=== PATIENT | male | born 1940 | race Caucasian/White ===

== ENCOUNTER → 2017-12-25 10:14 | Outpatient (CLI) | payer MEDICARE, OTHER, SELFPAY ==
[2017-12-25 14:57] LABS: Protein, Urine (Random) 51.9 mg/dL (<11.9); Protein:Creat Ratio 451 mg/g CRE (0-200)
[2017-12-25 14:59] LABS: Albumin, Serum 3.6 g/dL (3.2-5.0); BUN 17 mg/dL (7-18); BUN/Creat Ratio 13.5 RATIO (10-20); Calcium,Total 9.3 mg/dL (8.5-10.1); Chloride 105 mmol/L (98-107); Creatinine, Serum 1.26 mg/dL (0.70-1.30); EST Glomerular Filtration Rate 59 mL/min (>60); Est Glom Filt Rate - Afr Amer 71 mL/min (>60); Glucose 115 mg/dL (74-106); Magnesium 1.9 mg/dL (1.6-2.6); Phosphorus 3.7 mg/dL (2.5-4.9); Potassium 4.4 mmol/L (3.5-5.1); Sodium Level 139 mmol/L (136-145)
== END ==
PROVIDERS: Family Provider Family Medicine; PCP Family Medicine; Visit Provider Internal Medicine Nephrology
DX: E11.22 Type 2 diabetes mellitus with diabetic chronic kidney disease (principal); N18.2 Chronic kidney disease, stage 2 (mild); E83.42 Hypomagnesemia
CPT/HCPCS: 36415; 80069; 82570; 83735; 84156

== ENCOUNTER 2018-06-28 20:59 | Inpatient (IN) | payer MEDICARE, OTHER, SELFPAY ==
[2018-06-28 21:00] VITALS: BP 127/56; PULSE 95; RESP 18; TEMP 37.3; O2SAT 97; BMI 32.5
--- NOTE | 2018-06-28 21:05 | EKG12_ITS ---
Test Reason : DIZZY Blood Pressure : / mmHG Vent. Rate : 091 BPM Atrial Rate : 091 BPM P-R Int : 182 ms QRS Dur : 078 ms QT Int : 352 ms P-R-T Axes : 000 042 -60 degrees QTc Int : 432 ms Normal sinus rhythm Possible Inferior infarct , age undetermined ST & T wave abnormality, consider lateral ischemia Abnormal ECG Confirmed by HUBERT MIDDLETON, JAMA ([id number]), editor managing newspaper KENDALL VICK ([id number]) on 06/30/2018 11:18:57 AM Referred By: FELA Confirmed By:JAMA GASPAR MD
[2018-06-28 21:56] VITALS: BP 114/65; BP 142/67; BP 95/59; PULSE 101; PULSE 89; PULSE 98
--- NOTE | 2018-06-28 22:17 | RAD_ITS ---
STUDY: X-RAY CHEST REASON FOR EXAM: Male, 77 years old. Dizziness and cough TECHNIQUE: Frontal and lateral views of the chest. COMPARISON: None. FINDINGS: Elevated right hemidiaphragm. Prominent calcified plaque on both hemidiaphragms. Probable chronic pulmonary disease. Wedge-shaped density overlying the right upper lobe, approximately 4.7 cm greatest dimension is most likely calcified plaque but since there are no prior studies, confirmation with CT of the chest is recommended. No definite focal infiltrates. No gross effusions. Previous CABG. Normal heart size. Degenerative changes throughout the spine and shoulders. RAD/Chest PA and Lateral IMPRESSION: Elevated right hemidiaphragm. Prominent calcified plaques of both hemidiaphragms. Probable calcified plaque causing a density in the right upper lobe with CT of the chest is recommended. Electronically Signed: Sherman Strong MD at 23:38 EDT , Service support ,
--- NOTE | 2018-06-28 22:18 | RAD_ITS ---
STUDY: X-RAY - RIGHT FOOT CLINICAL: Male, 77 years old. Diabetic sores plantar redness TECHNIQUE: 3 view(s) of the foot. COMPARISON: None. FINDINGS: There is an enthesophyte involving the posterior superior calcaneus at the site of insertion of the Achilles tendon. A small linear calcification is seen in the plantar fascia consistent with previous tear. Normal visualized subtalar, talonavicular, calcaneocuboid, tarsal and tarsometatarsal articulations. Normal metatarsi. There is degenerative arthrosis of the metatarsophalangeal joint of the hallux . Normal tibial and fibular sesamoid bones. Normal interphalangeal joint of the great toe. Normal phalanges of the great toe. Normal second through fifth metatarsophalangeal joints. Normal interphalangeal joints and phalanges of the lesser toes. The soft tissue structures are unremarkable. There is no demonstrated fracture. RAD/Foot min 3 Views IMPRESSION: No acute fracture, dislocation, or definite destructive process of the bones. Electronically Signed: Sherman Strong MD at 23:36 EDT , Service support ,
--- NOTE | 2018-06-28 22:21 | ED.VISSUMM ---
- ER Visit Summary Date of Service: 06/28/18 Chief Complaint: Right foot redness History of Present Illness: The patient is a 77 M who presents with right foot redness and pain. It is difficult to get a clear history as he is a poor informant. He believes this may be related to medication changes. He was recently taken off of Invokana and started on a new medication. He complains of twitching and mild pain in his right foot. He also noticed that his blood pressure was low at 90 systolic. He complains of dizziness which is worse with standing. He had multiple falls today. He is noticed redness mild pain and swelling of his right foot. He reports sweats but no documented fever. He also complains of a cough productive of clear white sputum. No abdominal pain nausea vomiting diarrhea or chest pain. Physical Examination: Blood pressure 127/56 but orthostatics positive and on standing blood pressure dropped into the 90s Moist mucous membranes Heart regular rate and rhythm Lungs are clear Abdomen soft nontender There is erythema of the right foot and findings consistent with gangrene there appears to be necrosis between the first and second toes and there is a wound on the plantar side of the right foot proximal to the first MTP is able to wiggle his toes without pain he has decreased sensation to light touch he has a palpable left dorsalis pedis pulse I was unable to palpate dorsalis pedis pulse on the right but he does have biphasic Doppler flow Test Results: EKG shows sinus rhythm at a rate of [address] depression and T wave inversions in leads V3 through V6, I, II and aVF. Labs notable for white blood cell count 14.5, BUN 29, creatinine 1.6 this is slightly increased from prior labs. INR 1.2. Troponin negative. Lactic acid normal. Blood culture sent. Chest x-ray shows calcified plaques and a CT of the chest was recommended. Foot x-ray shows no acute fracture or definite destructive process. Emergency Department Course and Treatment: Patient was treated with IV Zosyn and vancomycin. He will be discussed with hospitalist and admitted. He will likely need podiatry or orthopedic consultation as well. Treatment Plan: [] Disposition: Admit Impression: Gangrene and cellulitis right foot This note was generated with Partnered dictation software. It may contain incorrect words, spelling, and punctuation that were not noted in review of the chart prior to signing ED Disposition - Plan for ED Patient: Referrals: Nawaf Villaseñor MD [Primary Care Provider] -
[2018-06-28] MEDS: 0.9% Normal Saline 1,000 ML 999 ML IV (22:49)
[2018-06-28 22:50] VITALS: PULSE 80; RESP 14; O2SAT 95
[2018-06-28 23:01] LABS: International Normalized Ratio 1.2; Prothrombin Time (Protime)PT. 14.9 SECONDS (11.7-14.9)
[2018-06-28 23:07] LABS: Partial Thromboplast Time 30.3 Seconds (24.1-36.2)
[2018-06-28 23:11] LABS: ALB/GLOB Ratio 0.5 RATIO (0.9-2.4); AST(SGOT) 20 U/L (15-37); Absolute Lymphocyte Count 1.31 X10^3/ul (0.83-4.51); Absolute Neutrophil Count 11.9 X10^3/uL (2.0-7.7); Alanine Aminotransfer ALT/SGPT 22 U/L (16-61); Albumin, Serum 2.9 g/dL (3.2-5.0); Alkaline Phosphatase 131 U/L (45-117); Anion Gap 9 (5-15); BUN 29 mg/dL (7-18); BUN/Creat Ratio 18.1 RATIO (10-20); Basophil# 0.03 X10^3/uL; Basophil% 0.2 % (0-1); Calcium,Total 8.9 mg/dL (8.5-10.1); Chloride 100 mmol/L (98-107); EST Glomerular Filtration Rate 45 mL/min (>60); Eosinophil# 0.05 X10^3/uL; Eosinophils% 0.3 % (0-5); Est Glom Filt Rate - Afr Amer 54 mL/min (>60); Estimated Creatinine Clearance 38.66 ml/min; Globulin 5.3 g/dL (2.2-4.2); Glucose 262 mg/dL (74-106); Hematocrit 39.5 % (40-54); Hemoglobin 13.5 g/dl (13.0-16.5); Lymphocyte # 1.31 X10^3/ul (4.0); Mean Corp Hgb Conc 34.2 g/gl (32-36); Mean Corpuscular Hgb 29.5 pg (27.0-32.0); Mean Corpuscular Volume 86.4 fL (80-94); Mean Platelet Vol. 10.1 fl (6.2-12.0); Monocyte# 1.21 X10^3/uL; Monocyte% 8.3 % (0-10); Neutrophil # 11.87 X10^3/uL (2.7-7.7); Platelet Count 244 K/mm3 (150-450); Potassium 4.4 mmol/L (3.5-5.1); Protein, Total 8.2 g/dL (6.4-8.2); RBC Distribution Width CV 12.5 % (11.6-14.6); RBC Distribution Width SD 39.8 fl (35.1-43.9); Red Blood Count 4.57 M/mm3 (4.6-6.2); Sodium Level 131 mmol/L (136-145); White Blood Count 14.5 K/mm3 (4.4-11.0)
[2018-06-28 23:21] LABS: Differential Indicated SCAN CRITERIA MET; POSITIVE COUNT YES; POSITIVE DIFFERENTIAL NO; POSITIVE MORPHOLOGY NO
[2018-06-28 23:22] LABS: Platelet Estimate ADEQUATE (ADEQ)
[2018-06-28 23:27] LABS: Lactic Acid 1.6 mmol/L (0.4-2.0)
[2018-06-29] VITALS (8 sets, daily range): BP systolic 113–138; BP diastolic 46–67; PULSE 60–79; RESP 13–23; TEMP 36.9–37.2; O2SAT 94–97; BMI 30.2; BMI 30.3
--- NOTE | 2018-06-29 | BON_PTH ---
PATIENT: PAULINA OSORIO LOC: MS3 U#:[id number] AGE/SX: 77/M ROOM: SC310 RE06/29/[address]: Dr. Kevin Webber DO : 1940 BED: 1 DIS: 07/02/2018 SPEC #: [id number] RECD: 06/30/18 10:26 STATUS: TALHA REQ #: [id number] AUGUSTO: 06/29/18 00:[address]: Keenan Oliver DEPT: SURGICAL PATHOLOGY RECD BY: Jesse Reynolds ENTERED: 06/30/18 12:18 SP TYPE: Bone OTHR DR: DO Dr. Claritza Aaron, DPM Dr. Keenan Oliver, MD Dr. Harman Garces Dr., MD Dr. William Lago, MD Tissues: A - Soft tissues, NOS B - Bone of foot, NOS Procedures: PAS Fungus (control) Decalcification bone/plaque Special Stain Group I Surgery Specimen Level III Surgery Specimen Level IV GMS Stain (control) Comments: @ Ordering doctor for DEC edited from to @ by LOLITA at 06/30/18 160 @ Ordering doctor for SUIII edited from to @ by LOLITA at 06/30/18 160 @ Ordering doctor for SUIV edited from to @ by LOLITA at 06/30/18 160 @ Submitting doctor edited from to DR.JWUNNI Rosalba MCHUGH at 06/30/18 1602 HEADER OPERATION: Incision and drainage abscess right foot; debridement PRE-OP DIAGNOSIS: Cellulitis, abscess right forefoot; concern for osteomyelitis right forefoot TISSUE SUBMITTED: A - Right foot debrided tissue, B - Sesamoid bone right foot MICROSCOPIC DIAGNOSIS A. Right foot debrided tissue: Acute inflammation and abscess formation. Special stains for acid fast bacilli and fungi are negative for organisms; matched controls are appropriate. B. Sesamoid bone right foot: Pieces of bone with focal minimal acute osteomyelitis and reactive changes. See comment. SJ:kirk 07/06/18 COMMENT B. Acute inflammatory cells infiltrates are associated with focal mild hemorrhage. Case has been reviewed in consultation with Dr. Stearns who concurs with the above diagnosis. IDC:CE MICROSCOPIC DESCRIPTION Slides are reviewed. GROSS DESCRIPTION A - Received in fixative is one container labeled with the patient's name and designated right foot debrided tissue. The specimen consists of multiple irregular fragments of light garnica soft tissue that in aggregate measure 6 x 5 x 2 cm. A few pieces of skin are also noted. Turbine Engineer tissue is submitted in three cassettes. B - Received in fixative is one container labeled with the patient's name and designated sesamoid bone right foot. The specimen consists of multiple pieces of bone that in aggregate measure 4 x 3 x 1.5 cm. The entire specimen is submitted after decalcification in four cassettes. / SJ:rg 06/30/18 TC:3 CPT: 54369 x 2, 79218 x2, 60094
--- NOTE | 2018-06-29 01:40 | HP.PCM_ITS ---
Problem List (1) Cellulitis of right lower extremity Status: Acute (2) DM type 2, uncontrolled, with renal complications Status: Acute (3) Essential hypertension with goal blood pressure less than 130/80 Status: Chronic Comment: Hx of elevated BG in medical office. Monitors at home daily with findings of normal BP. No change in regimen. (4) Hyperlipidemia associated with type 2 diabetes mellitus Status: Chronic Comment: Managed by Dr. King. New chol agent being used. Chol now 164, LDL 75. Taking monthly injection. History of Present Illness Date of Admission: 06/29/18 Chief Complaint: Right lower extremity cellulitis The patient is a 77 year old M with PMH as below who presents to the hospital with 1 weeks worth of cellulitis in his right lower extremity. He noticed that he had an area of redness that was expanding between his first and second toes on the right. Currently it has expanded to encompass his midfoot and there is some streaking going up his leg on the medial aspect. He thinks it is because he has been changing his diabetic medication, he was on Invokana and then was transitioned to a different medication and he thinks that that is what was doing it. In the ER he was found to have a leukocytosis to 14.5, however he has been afebrile and has not been tachycardic. Creatinine on admission is slightly higher than his baseline of 1.2, and his lactic acid was normal at 1.6. He has had a chest x-ray in the ER which demonstrated calcified plaque on the right upper lobe and CT scan is recommended for follow-up which can be done as an outpatient, of note he did have a right lower lobectomy at the [facility]. Past Medical History Past Medical History (Chronic Problems): Chronic Problems (Last Updated 06/04/17 @ 09:13 by Tabby Flores) Hyperlipidemia associated with type 2 diabetes mellitus (Chronic) Managed by Dr. King. New chol agent being used. Chol now 164, LDL 75. Taking monthly injection. Essential hypertension with goal blood pressure less than 130/80 (Chronic) Hx of elevated BG in medical office. Monitors at home daily with findings of normal BP. No change in regimen. Uncontrolled type 2 diabetes mellitus, with long-term current use of insulin (Chronic) BG readings in range in am. When checked pre lunch BG remain well controlled. However before evening meal BG 200+ range. He is instructed on need to resume his lunch insulin. He currently runs high BG from after lunch until he corrects at bedtime, resulting in 10 hours daily of high BG. I reminded him this is the same conversation we had at last visit. He agrees to take insulin as directed. Follows with Dr. Serna for nephrology. Follows with cardiology as well. A1c now 8.6 Medical History: Medical History (Last Updated 06/04/17 @ 09:13 by Tabby Flores) Bone fracture T14.8XXA Diabetes type 2, controlled E11.9 Dx : 1996 Last exacerbation : DKA : never Hypoglycemic episode : never ER visit : never Hearing problem H91.90 High cholesterol E78.00 High triglycerides E78.1 Pneumonia J18.9 Vascular disease I99.9 HTN (hypertension) I10 Allergies Iodinated Contrast- Oral and IV Dye [CONTRASTS] Allergy (Verified 06/28/18 21:03) Rash amlodipine [From Norvasc] Adverse Reaction (Unknown, Verified 06/28/18 21:03) Unknown atorvastatin [From Lipitor] Adverse Reaction (Unknown, Verified 06/28/18 21:03) Unknown cerivastatin [From Baycol] Adverse Reaction (Unknown, Verified 06/28/18 21:03) Unknown enalapril Adverse Reaction (Unknown, Verified 06/28/18 21:03) Unknown exenatide [From Byetta] Adverse Reaction (Unknown, Verified 06/28/18 21:03) Unknown ezetimibe [From Zetia] Adverse Reaction (Unknown, Verified 06/28/18 21:03) Unknown fenofibrate [From Tricor] Adverse Reaction (Unknown, Verified 06/28/18 21:03) Unknown gemfibrozil Adverse Reaction (Unknown, Verified 06/28/18 21:03) Unknown glipizide [From Glucotrol] Adverse Reaction (Unknown, Verified 06/28/18 21:03) Unknown labetalol Adverse Reaction (Unknown, Verified 06/28/18 21:03) Unknown lovastatin [From Mevacor] Adverse Reaction (Unknown, Verified 06/28/18 21:03) Unknown metformin [From Glucophage] Adverse Reaction (Unknown, Verified 06/28/18 21:03) Unknown niacin [From Niaspan Extended-Release] Adverse Reaction (Unknown, Verified 06/28/18 21:03) Unknown nifedipine [From Adalat] Adverse Reaction (Unknown, Verified 06/28/18 21:03) Unknown quinapril [From Accupril] Adverse Reaction (Unknown, Verified 06/28/18 21:03) Unknown repaglinide [From Prandin] Adverse Reaction (Unknown, Verified 06/28/18 21:03) Unknown rosuvastatin [From Crestor] Adverse Reaction (Unknown, Verified 06/28/18 21:03) Unknown simvastatin [From Zocor] Adverse Reaction (Unknown, Verified 06/28/18 21:03) Unknown glyburide Adverse Reaction (Verified 06/28/18 21:03) Unknown glyburide Adverse Reaction (Unknown, Uncoded 06/28/18 21:03) Unknown nifedipine Adverse Reaction (Unknown, Uncoded 06/28/18 21:03) Unknown Home Medications: Ambulatory Orders Medication Instructions Recorded amiloride 5 mg tablet 5 mg PO BID tab 05/29/17 aspirin 81 mg tablet,delayed PO 05/29/17 release insulin aspart U- 100 100 unit/mL See Rx Instructions SC QDAY 05/29/17 subcutaneous solution insulin glargine (U- 100) 100 35 unit SC BID ml 05/29/17 unit/mL subcutaneous solution losartan 50 mg tablet 50 mg PO QDAY 05/29/17 canagliflozin 100 mg tablet 100 mg PO QAM 06/04/17 coenzyme Q10 100 mg capsule 100 mg PO QDAY 06/04/17 magnesium oxide 500 mg capsule 500 mg PO QDAY cap 06/04/17 multivitamin tablet 1 tab PO QDAY 06/04/17 neuro quell PO 06/04/17 clopidogrel 75 mg tablet 75 mg PO QDAY tab 09/16/17 doxazosin 4 mg tablet 2 mg PO BID tab 09/16/17 krill oil 500 mg capsule 1,000 mg PO cap 09/16/17 metoprolol succinate ER 50 mg 25 mg PO QDAY tab 09/16/17 tablet,extended release 24 hr multivitamin tablet 1 tab PO QDAY 09/16/17 Surgical History: Surgical History (Last Reviewed 06/04/17 @ 08:55 by Tabby Flores) H/O heart surgery Z98.890 History of lung surgery Z98.890 Smoking Status: Never smoker Tobacco Use: Cigarettes Alcohol: None Drugs: None - *Family History Maternal History Items: Heart Disease, Stroke Paternal History Items: Heart Disease, Hypertension Review of Systems Constitutional: Denies: Chills, Fever, Weight Change HEENT: Denies: Head Aches, Sinus Congestion, Sinus Drainage Cardiovascular: Denies: Chest Pain, Palpitations Respiratory: Denies: Cough, Shortness of breath at rest, Sputum production Gastrointestinal: Denies: Abdominal Pain, Nausea, Vomiting Genitourinary: Denies: Dysuria Musculoskeletal: Reports: Foot Pain. Denies: Joint Pain, Joint Tenderness Skin: Reports: Rash. Denies: Wounds Neurological: Denies: Numbness, Tingling, Focal weakness Psychiatric: Denies: Anxiety, Depression Hematologic/ Lymphatic: Denies: Easy Bruising, Easy Bleeding VTE Information - Inpt Only VTE Present on Admission: No Patient Problems: Active and Suspected Problems (Last Updated 06/04/17 @ 09:13 by Tabby Flores) Cellulitis of right lower extremity (Acute) - Physical Exam General: Alert, Oriented x3, Cooperative, No apparent distress HEENT: Atraumatic, PERRLA, EOMI, Normocephalic Oral: Dry Mucosa Neck: Supple, No JVD, Trachea Midline Lungs: Clear to auscultation, Normal air movement, No rhonchi, No wheeze, No rales, Diminished - Right base greater than left Cardiovascular: Regular rate, Regular Rhythm, Normal S1, Normal S2, No murmurs Abdomen: Soft, Non Tender, Non-Distended, No Hepato-splenomegaly Extremities: No edema, Capillary Refill Less than 3 Seconds, Tenderness, - - Dark purple area between his first and second toe on the anterior aspect of his foot, with surrounding erythema and there is slight streaking up the medial aspect of his leg Skin: No rashes, No breakdown Neurological: Neuro grossly intact, Sensory exam intact to light touch and pain Psych/Mental Status: Normal Affect, Appropriate Vital Signs Temp Pulse Resp BP Pulse Ox 98.9 F 66 17 130/50 H 96 06/29/18 00:31 06/29/18 01:04 06/29/18 01:04 06/29/18 01:04 06/29/18 01:04 Oxygen Delivery Method Room Air Weight: 220 lb Body Mass Index (BMI) 32.5 Laboratory Tests Past 24 Hrs 06/28/18 06/28/18 06/28/18 21:25 21:25 21:25 WBC 14.5 H RBC 4.57 L Hgb 13.5 Hct 39.5 L MCV 86.4 MCH 29.5 MCHC 34.2 RDW 12.5 RDW Differential 39.8 Plt Count 244 MPV 10.1 Immature Gran % (Auto) 0.200 Neut % (Auto) 82.0 H Lymph % (Auto) 9.0 L C[place] % (Auto) 8.3 Eos % (Auto) 0.3 Baso % (Auto) 0.2 Absolute Neuts (auto) 11.9 H Absolute Lymphs (auto) 1.31 Total Counted Not Reportable Platelet Estimate ADEQUATE PT 14.9 INR 1.2 APTT 30.3 Sodium 131 L Potassium 4.4 Chloride 100 Carbon Dioxide 22.0 Anion Gap 9 BUN 29 H Creatinine 1.60 H Estim Creat Clear Calc 38.66 Est GFR (MDRD) Af Amer 54 L Est GFR (MDRD) Non-Af 45 L BUN/Creatinine Ratio 18.1 Glucose 262 H Lactic Acid Calcium 8.9 Total Bilirubin 1.00 AST 20 ALT 22 Alkaline Phosphatase 131 H Troponin I < 0.015 Total Protein 8.2 Albumin 2.9 L Globulin 5.3 H Albumin/Globulin Ratio 0.5 L 06/28/18 22:00 WBC RBC Hgb Hct MCV MCH MCHC RDW RDW Differential Plt Count MPV Immature Gran % (Auto) Neut % (Auto) Lymph % (Auto) [place] % (Auto) Eos % (Auto) Baso % (Auto) Absolute Neuts (auto) Absolute Lymphs (auto) Total Counted Platelet Estimate PT INR APTT Sodium Potassium Chloride Carbon Dioxide Anion Gap BUN Creatinine Estim Creat Clear Calc Est GFR (MDRD) Af Amer Est GFR (MDRD) Non-Af BUN/Creatinine Ratio Glucose Lactic Acid 1.6 Calcium Total Bilirubin AST ALT Alkaline Phosphatase Troponin I Total Protein Albumin Globulin Albumin/Globulin Ratio Assessment/Plan All Active Problems (Last Updated 06/04/17 @ 09:13 by Tabby Flores) Cellulitis of right lower extremity (Acute) DM type 2, uncontrolled, with renal complications (Acute) 1. RLE cellulitis/JAMI -Unsure of the etiology as he denies any trauma to the leg this is not secondary to Invokana -Received a dose of Zosyn and vancomycin in the ER which we will continue -X-ray of the foot is negative for any involvement in the bone -Leukocytosis to 14.5 however lactic acid is 1.6 -We will continue with IV fluids at 100 cc/h, received bolus in the ER -Creatinine increased to 1.6 from 1.25 in 2018 2. CAD status post bypass and stent/HTN/HLD -Blood pressure has been stable when he has been laying down however in the ER he was getting a little hypotensive when standing up -We will hold his blood pressure medications today -Continue with aspirin and Plavix 3. IDDM 2 -He is on glargine at home 35 units twice daily which we will continue with sliding scale insulin -We will check an A1c in the morning DVT: Lovenox
[2018-06-29] MEDS: 0.9% Normal Saline 1,000 ML 100 ML IV ×2 (03:35→13:47)
--- NOTE | 2018-06-29 03:53 | PCM.RX.CS ---
Consult Pharmacy has been consulted to manage selected antiobiotic: Vancomycin Type of Consult: New start Suspected Infection: Skin/Soft tissue Labs: Sodium 131 mmol/L (136-145) L 06/28/18 21:25 Potassium 4.4 mmol/L (3.5-5.1) 06/28/18 21:25 Chloride 100 mmol/L (98-107) 06/28/18 21:25 Carbon Dioxide 22.0 mmol/L (21.0-32.0) 06/28/18 21:25 Anion Gap 9 (5-15) 06/28/18 21:25 BUN 29 mg/dL (7-18) H 06/28/18 21:25 Creatinine 1.60 mg/dL (0.70-1.30) H 06/28/18 21:25 Est GFR (MDRD) Af Amer 54 mL/min (>60) L 06/28/18 21:25 Est GFR (MDRD) Non-Af 45 mL/min (>60) L 06/28/18 21:25 BUN/Creatinine Ratio 18.1 RATIO (10-20) 06/28/18 21:25 Glucose 262 mg/dL (74-106) H 06/28/18 21:25 Weight used for dosin.87 kg Estimated Creatinine Clearance: 38.64 Goal Trough: 15-20 mcg/mL Pharmacy Plan for Drug Dosing: Pharmacy Service will continue to monitor and adjust dosing as required. Medications Vancomycin HCl 1,500 mg/ (Sodium Chloride) 530 mls @ 250 mls/hr IV Q24H MARILU Follow-Up Labs: Trough Vancomycin Labs to be done on [date and time ordered]: 07/01 @ 0035
[2018-06-29 06:01] LABS: Absolute Lymphocyte Count 1.73 X10^3/ul (0.83-4.51); Absolute Neutrophil Count 11.7 X10^3/uL (2.0-7.7); Basophil# 0.03 X10^3/uL; Basophil% 0.2 % (0-1); Eosinophil# 0.01 X10^3/uL; Eosinophils% 0.1 % (0-5); Lymphocyte # 1.73 X10^3/ul (4.0); Lymphocyte % 11.5 % (19-41); Mean Corp Hgb Conc 33.3 g/gl (32-36); Mean Corpuscular Hgb 28.9 pg (27.0-32.0); Mean Corpuscular Volume 86.7 fL (80-94); Mean Platelet Vol. 9.2 fl (6.2-12.0); Monocyte# 1.46 X10^3/uL; Monocyte% 9.7 % (0-10); Neutrophil # 11.72 X10^3/uL (2.7-7.7); Neutrophil % 78.3 % (47-70); Platelet Count 234 K/mm3 (150-450); RBC Distribution Width CV 12.6 % (11.6-14.6); RBC Distribution Width SD 38.7 fl (35.1-43.9); Red Blood Count 4.15 M/mm3 (4.6-6.2)
[2018-06-29 06:21] LABS: POSITIVE COUNT NO; POSITIVE DIFFERENTIAL NO; POSITIVE MORPHOLOGY NO
[2018-06-29 06:22] LABS: Anion Gap 7 (5-15); BUN 30 mg/dL (7-18); BUN/Creat Ratio 19.1 RATIO (10-20); Calcium,Total 8.4 mg/dL (8.5-10.1); Chloride 105 mmol/L (98-107); Creatinine, Serum 1.57 mg/dL (0.70-1.30); EST Glomerular Filtration Rate 46 mL/min (>60); Est Glom Filt Rate - Afr Amer 55 mL/min (>60); Estimated Creatinine Clearance 41.97 ml/min; Glucose 240 mg/dL (74-106); Potassium 4.6 mmol/L (3.5-5.1); Sodium Level 136 mmol/L (136-145)
[2018-06-29 06:46] LABS: Bedside Glucose 222 mg/dL (70-110)
[2018-06-29] MEDS: Insulin Lispro 100 UNIT/ML INSULN.PEN SQ ×4 (06:46→21:42)
[2018-06-29] MEDS: 0.9% NaCl IVPB Med Flush (250 mL) 15 ML IV (06:50)
[2018-06-29] MEDS: Glucerna Shake 120 ML LIQUID PO ×4 (08:45→21:40)
[2018-06-29] MEDS: Enoxaparin 40 MG/0.4 ML Syringe SC (09:04)
--- NOTE | 2018-06-29 09:46 | CASEMGMT ---
Social Work Note Per waist fitter questions pt has completed Living Will and HCPOA, hasn't provided copies to [facility] and isn't able to bring in copies. Marianne Paez ABORIGINAL EDUCATION WORKER COORDINATOR, DIVISION SERVICE MANAGER
--- NOTE | 2018-06-29 10:05 | CASEMGMT ---
RN CM Face to Face with patient for initial transition planning/care coordination assessment. RN CM introduced self and role at [facility]. Patient lying in bed, alert and oriented. Patient willing to participate in assessment and is able to answer all questions appropriately. Care providers, pharmacy, and demographics verified. Patient wishes to discharge home, denies need for home health at this time. Patient states he has no further needs or concerns at this time. CM to follow for discharge planning needs that may arise. PCP: Charleen Specialists: Marilynn senior treasury consultant; Lizz machinist class b Preferred Pharmacy: [facility] Insurance: QBE Prescription Benefit: yes Living Will/HPOA: yes, Kassandra Ba LNOK: , daughter Living Arrangements: Patient lives in 1 story home. Patient is independent at home. Transportation: self/ DME/HHC: Patient states he has a glucometer and BP cuff. Denied further needs Disposition Plan: Patient to discharge home with family support and follow-up plans in place. Marianne OCHOAN, RN, CM
[2018-06-29 11:50] LABS: Bedside Glucose 306 mg/dL (70-110)
--- NOTE | 2018-06-29 16:14 | MRI_ITS ---
STUDY: MRI RIGHT FOREFOOT WITHOUT CONTRAST REASON FOR EXAM: Male, 77 years old. Cellulitis. Open sore between the first and second toes. TECHNIQUE: Standardized fat and water weighted pulse sequences were obtained in all 3 orthogonal planes. COMPARISON: X-ray June 28, 2018 FINDINGS: There is degenerative arthrosis of the metatarsophalangeal joint of the hallux. There is a bipartite tibial sesamoid with moderate edema. Normal interphalangeal joint of the hallux. Normal proximal and distal phalanges of the great toe. There is soft tissue swelling of the first toe. There is focal defect on the plantar aspect consistent with ulcer. There is focal diminished signal regions in the soft tissues consistent with air at the first interspace. Normal medial and lateral heads of the flexor hallucis brevis tendons. Normal flexor and extensor hallucis longus tendons. Normal second through fifth metatarsophalangeal (MTP) joints. Normal interphalangeal joints of the second through fifth toes. Normal proximal, middle and distal phalanges of the second through fifth toes. Normal first through fourth intermetatarsal spaces. Normal flexor and extensor tendons of the second through fifth toes. Normal visualized metatarsi. Normal intrinsic muscles of the forefoot. MRI/Lower Ext/No Jt/w/o IMPRESSION: Soft tissue swelling with focal ulcer and air in the soft tissues. There is bipartite medial sesamoid with edema consistent with sesamoiditis versus osteomyelitis. Arthritic change at the first MTP joint. Electronically Signed: Phan Rooney MD at 20:22 EDT , Service support ,
--- NOTE | 2018-06-29 16:25 | ART_ITS ---
Reason For Study: ulcer Left Segmental Pressures Left posterior tibial artery = 133mmHg. Left dorsalis pedis artery = 150mmHg. Left digit = 102 mmHg. The left dorsalis pedis waveforms are triphasic. The left posterior tibial artery waveforms are triphasic. Right Segmental Pressures Right brachial= 132mmHg. Right posterior tibial artery = 165mmHg. Right dorsalis pedis artery = 164mmHg. The right dorsalis pedis waveforms are triphasic. The right posterior tibial artery waveforms are triphasic. Indices The right ankle brachial index by the posterior tibial artery is 1.25. The right ankle brachial index by the dorsalis pedis is 1.24. The left ankle brachial index by the dorsalis pedis is 1.14. The left ankle brachial index by the posterior tibial artery is 1.01. The left digital-brachial index is .77. Interpretation Summary Triphasic Doppler waveforms are noted at ankle level bilaterally. Pulse-volume recording amplitudes appear satisfactory at low-thigh, calf, ankle, and digital level bilaterally, though not obtained at digital level on the right due to the presence of an ulceration. Resting ankle-brachial indices are normal bilaterally. The right digital-brachial index was not determined due to the presence of an ulceration. The left digital-brachial index is normal. There is no evidence of significant arterial occlusive disease in the lower extremities bilaterally. Ordering Physician: Keenan Oliver Performed By: AMY HANSON Yaneth
--- NOTE | 2018-06-29 16:50 | CON.PCM_ITS ---
Reason for Consult Date of Consultation: 06/29/18 Reason for Consultation: Right foot infection (diabetic) History of Present Illness: The patient is a 77 year old gentleman with multiple medical problems including diabetes and CAD presented to hospital for redness and swelling, dislocation right foot. Per patient's this started about 1 week ago, she wanted to bring him sooner but patient refused, he was finally agreeable to come in yesterday. He has a large callus which he relates he soaked recently for about 1.5 hours at home, then states he cut off callus himself. He attributes this infection due to recent diabetes medication change (per chart review he was on Invokana and then was transitioned to a different medication). He was found to have cellulitis, with blistering to the right forefoot, he has leukocytosis. Patient is afebrile. He has been started on broad spectrum IV antibiotics. Patient has no complaints of fever, chills, nausea or vomiting. He is resting comfortably in bed. He relates to some, but minimal, pain to the foot. Past Medical History Past Medical History (Chronic Problems): Chronic Problems (Last Updated 06/04/17 @ 09:13 by Tabby Flores) Hyperlipidemia associated with type 2 diabetes mellitus (Chronic) Managed by Dr. King. New chol agent being used. Chol now 164, LDL 75. Taking monthly injection. Essential hypertension with goal blood pressure less than 130/80 (Chronic) Hx of elevated BG in medical office. Monitors at home daily with findings of normal BP. No change in regimen. Uncontrolled type 2 diabetes mellitus, with long-term current use of insulin (Chronic) BG readings in range in am. When checked pre lunch BG remain well controlled. However before evening meal BG 200+ range. He is instructed on need to resume his lunch insulin. He currently runs high BG from after lunch until he corrects at bedtime, resulting in 10 hours daily of high BG. I reminded him this is the same conversation we had at last visit. He agrees to take insulin as directed. Follows with Dr. Serna for nephrology. Follows with cardiology as well. A1c now 8.6 Medical History: Medical History (Last Updated 06/04/17 @ 09:13 by Tabby Flores) Bone fracture T14.8XXA Diabetes type 2, controlled E11.9 Dx : 1996 Last exacerbation : DKA : never Hypoglycemic episode : never ER visit : never Hearing problem H91.90 High cholesterol E78.00 High triglycerides E78.1 Pneumonia J18.9 Vascular disease I99.9 HTN (hypertension) I10 Allergies Iodinated Contrast- Oral and IV Dye [CONTRASTS] Allergy (Verified 06/28/18 21:03) Rash amlodipine [From Norvasc] Adverse Reaction (Unknown, Verified 06/28/18 21:03) Unknown atorvastatin [From Lipitor] Adverse Reaction (Unknown, Verified 06/28/18 21:03) Unknown cerivastatin [From Baycol] Adverse Reaction (Unknown, Verified 06/28/18 21:03) Unknown enalapril Adverse Reaction (Unknown, Verified 06/28/18 21:03) Unknown exenatide [From Byetta] Adverse Reaction (Unknown, Verified 06/28/18 21:03) Unknown ezetimibe [From Zetia] Adverse Reaction (Unknown, Verified 06/28/18 21:03) Unknown fenofibrate [From Tricor] Adverse Reaction (Unknown, Verified 06/28/18 21:03) Unknown gemfibrozil Adverse Reaction (Unknown, Verified 06/28/18 21:03) Unknown glipizide [From Glucotrol] Adverse Reaction (Unknown, Verified 06/28/18 21:03) Unknown labetalol Adverse Reaction (Unknown, Verified 06/28/18 21:03) Unknown lovastatin [From Mevacor] Adverse Reaction (Unknown, Verified 06/28/18 21:03) Unknown metformin [From Glucophage] Adverse Reaction (Unknown, Verified 06/28/18 21:03) Unknown niacin [From Niaspan Extended-Release] Adverse Reaction (Unknown, Verified 06/28/18 21:03) Unknown nifedipine [From Adalat] Adverse Reaction (Unknown, Verified 06/28/18 21:03) Unknown quinapril [From Accupril] Adverse Reaction (Unknown, Verified 06/28/18 21:03) Unknown repaglinide [From Prandin] Adverse Reaction (Unknown, Verified 06/28/18 21:03) Unknown rosuvastatin [From Crestor] Adverse Reaction (Unknown, Verified 06/28/18 21:03) Unknown simvastatin [From Zocor] Adverse Reaction (Unknown, Verified 06/28/18 21:03) Unknown glyburide Adverse Reaction (Verified 06/28/18 21:03) Unknown glyburide Adverse Reaction (Unknown, Uncoded 06/28/18 21:03) Unknown nifedipine Adverse Reaction (Unknown, Uncoded 06/28/18 21:03) Unknown Home Medications: Ambulatory Orders Medication Instructions Recorded amiloride 5 mg tablet 5 mg PO BID tab 05/29/17 aspirin 81 mg tablet,delayed 81 mg PO DAILY 05/29/17 release insulin aspart U- 100 100 unit/mL See Rx Instructions SC QDAY 05/29/17 subcutaneous solution insulin glargine (U- 100) 100 30 unit SC BID ml 05/29/17 unit/mL subcutaneous solution losartan 50 mg tablet 50 mg PO QDAY 05/29/17 canagliflozin 100 mg tablet 100 mg PO QAM 06/04/17 coenzyme Q10 100 mg capsule 100 mg PO QDAY 06/04/17 magnesium oxide 500 mg capsule 500 mg PO BID cap 06/04/17 multivitamin tablet 1 tab PO QDAY 06/04/17 clopidogrel 75 mg tablet 75 mg PO QDAY tab 09/16/17 doxazosin 4 mg tablet 2 mg PO BID tab 09/16/17 krill oil 500 mg capsule 1,000 mg PO BID cap 09/16/17 metoprolol succinate ER 50 mg 25 mg PO QDAY tab 09/16/17 tablet,extended release 24 hr Alirocumab [Praluent Pen] 75 mg SQ .[id number] 06/29/18 Surgical History: Surgical History (Last Reviewed 06/04/17 @ 08:55 by Tabby Flores) H/O heart surgery Z98.890 History of lung surgery Z98.890 Smoking Status: Never smoker Tobacco Use: Cigarettes Alcohol: None Drugs: None - *Family History Maternal History Items: Heart Disease, Stroke Paternal History Items: Heart Disease, Hypertension Review of Systems Constitutional: Denies: Chills, Fever Gastrointestinal: Denies: Nausea, Vomiting Musculoskeletal: Reports: Foot Pain. Denies: Back Pain Skin: Reports: Wounds Patient Problems: Active and Suspected Problems (Last Updated 06/04/17 @ 09:13 by Tabby Flores) Cellulitis of right lower extremity (Acute) - Physical Exam General: Alert, Oriented x3, Cooperative, No apparent distress Extremities: Capillary Refill Less than 3 Seconds, No Calf Tenderness, - - Right foot: Large HPK callus sub 1st met head - upon debridement there is underlying deep ulceration probing very close to bone of the sesamoids and 1st met head/base of hallux proximal phalanx, there is drainage c/w infection and maloder, there is fibrotic and soupy tissue present, there is cellulitis to the dorsal forefoot extending to the midfoot, there is hemorrhagic bulla to the dorsal 1st ID space, with tissue necrosis localized to this area, there is no crepitus, no visible abscess present. No other open lesions to the right foot/ankle or leg, nor to the left foot/ankle or leg. Left foot with no evidence of infection. Sensation is diminished significantly c/w diabetic neuropathy, pedal pulses diminished with palpation but biphasic on doppler. CFT < 3 seconds to all toes. There is edema to the right foot c/w infection, no other edema present bilateral. Motor function intact bilateral foot/ankle. There is no POP or pain on ROM to the foot or ankle bilateral. Right foot xrays reviewed from 06/28/18: there is arterial calcification, there is calcific changes to the 1st MTPJ. No gas in the tissues. No fractures or dislocations. Vital Signs Temp Pulse Resp BP Pulse Ox 98.5 F 60 18 133/52 H 96 06/29/18 16:25 06/29/18 16:25 06/29/18 16:25 06/29/18 16:25 06/29/18 16:25 Oxygen Delivery Method Room Air Weight: 99.87 kg Body Mass Index (BMI) 30.2 Intake and Output for Last 24 Hours 06/27/18 06/28/18 06/29/18 23:59 23:59 23:59 Intake Total 1395 / 1395 Output Total 776 / 776 Balance 619 / 619 Laboratory Tests Past 24 Hrs 06/28/18 06/28/18 06/28/18 21:25 21:25 21:25 WBC 14.5 H RBC 4.57 L Hgb 13.5 Hct 39.5 L MCV 86.4 MCH 29.5 MCHC 34.2 RDW 12.5 RDW Differential 39.8 Plt Count 244 MPV 10.1 Immature Gran % (Auto) 0.200 Neut % (Auto) 82.0 H Lymph % (Auto) 9.0 L Hendricks % (Auto) 8.3 Eos % (Auto) 0.3 Baso % (Auto) 0.2 Absolute Neuts (auto) 11.9 H Absolute Lymphs (auto) 1.31 Total Counted Not Reportable Platelet Estimate ADEQUATE PT 14.9 INR 1.2 APTT 30.3 Sodium 131 L Potassium 4.4 Chloride 100 Carbon Dioxide 22.0 Anion Gap 9 BUN 29 H Creatinine 1.60 H Estim Creat Clear Calc 38.66 Est GFR (MDRD) Af Amer 54 L Est GFR (MDRD) Non-Af 45 L BUN/Creatinine Ratio 18.1 Glucose 262 H Lactic Acid Calcium 8.9 Total Bilirubin 1.00 AST 20 ALT 22 Alkaline Phosphatase 131 H Troponin I < 0.015 Total Protein 8.2 Albumin 2.9 L Globulin 5.3 H Albumin/Globulin Ratio 0.5 L 06/28/18 06/29/18 06/29/18 22:00 05:30 05:30 WBC 15.0 H RBC 4.15 L Hgb 12.0 L Hct 36.0 L MCV 86.7 MCH 28.9 MCHC 33.3 RDW 12.6 RDW Differential 38.7 Plt Count 234 MPV 9.2 Immature Gran % (Auto) 0.200 Neut % (Auto) 78.3 H Lymph % (Auto) 11.5 L Hendricks % (Auto) 9.7 Eos % (Auto) 0.1 Baso % (Auto) 0.2 Absolute Neuts (auto) 11.7 H Absolute Lymphs (auto) 1.73 Total Counted Not Reportable Platelet Estimate PT INR APTT Sodium 136 Potassium 4.6 Chloride 105 Carbon Dioxide 24.0 Anion Gap 7 BUN 30 H Creatinine 1.57 H Estim Creat Clear Calc 41.97 Est GFR (MDRD) Af Amer 55 L Est GFR (MDRD) Non-Af 46 L BUN/Creatinine Ratio 19.1 Glucose 240 H Lactic Acid 1.6 Calcium 8.4 L Total Bilirubin AST ALT Alkaline Phosphatase Troponin I Total Protein Albumin Globulin Albumin/Globulin Ratio POC Glucose 06/29/18 06/29/18 11:34 06:42 POC Glucose 306 H 222 H Assessment/Plan All Active Problems (Last Updated 06/04/17 @ 09:13 by Tabby Flores) Cellulitis of right lower extremity (Acute) DM type 2, uncontrolled, with renal complications (Acute) Cellulitis, abscess right forefoot Concern for osteomyelitis right forefoot Diabetes with peripheral neuropathy Peripheral Vascular Disease Reviewed diagnostic data. Selective debridement completed removing HPK and superficial nonviable tissue from the wound site right forefoot. There is concern for osteomyelitis right foot at level of the 1st ray, possibly the 2nd as well. An MRI was ordered for further evaluation. Given the findings discussed with patient incision, drainage, and debridement of right foot - advised patient he is a high risk of limb loss. Plan is to get MRI and we will then proceed with I+D w/ debridement. A culture was obtained of the wound today - sent to microbiology for further evaluation. Continue with IV antibiotic therapy (patient on Vancomycin and Zosyn). Noninvasive lower extremity arterial studies of the lower extremities ordered. Diabetes, and other medical management per hospitalist team. Will continue to follow. Thank you for consultation. Reviewed with patient, he agreed with plan, also with patient's permission reviewed with patient's .
[2018-06-29 17:05] LABS: Bedside Glucose 233 mg/dL (70-110)
--- NOTE | 2018-06-29 17:19 | PCM.PN.HOSP ---
Patient Problems: Active and Suspected Problems (Last Updated 06/04/17 @ 09:13 by Tabby Flores) Cellulitis of right lower extremity (Acute) Subjective: still with erythema on right foot. Vitals/I&O's: Vital Signs Temp Pulse Resp BP Pulse Ox 36.9 C 60 18 133/52 H 96 06/29/18 16:25 06/29/18 16:25 06/29/18 16:25 06/29/18 16:25 06/29/18 16:25 Oxygen Delivery Method Room Air Weight: 99.87 kg Body Mass Index (BMI) 30.2 Intake and Output for Last 24 Hours 06/27/18 06/28/18 06/29/18 23:59 23:59 23:59 Intake Total 1395 / 1395 Output Total 776 / 776 Balance 619 / 619 General: Alert, No apparent distress HEENT: Atraumatic, Normocephalic Oral: Moist Mucosa, No Gingival or Mucosal Lesions/ Ulcerations Neck: No Nodes, Thyroid Normal Size and Texture Lungs: Clear to auscultation, Normal air movement, No rhonchi, No wheeze Cardiovascular: Regular rate, Regular Rhythm, Normal S1, Normal S2, No murmurs Abdomen: Bowel Sounds Present, Soft, Non Tender, Non-Distended, No Hepato-splenomegaly Extremities: No edema, No Calf Tenderness Skin: - - macular rash on dorsum of right foot. blister b/w right 1st and 2nd toes. large callus on 1st MTP. Psych/Mental Status: Normal Affect, Appropriate Laboratory Results 06/28/18 21:25: WBC 14.5 H, RBC 4.57 L, Hgb 13.5, Hct 39.5 L, MCV 86.4, MCH 29.5, MCHC 34.2, RDW 12.5, RDW Differential 39.8, Plt Count 244, MPV 10.1, Immature Gran % (Auto) 0.200, Neut % (Auto) 82.0 H, Lymph % (Auto) 9.0 L, Solano % (Auto) 8.3, Eos % (Auto) 0.3, Baso % (Auto) 0.2, Absolute Neuts (auto) 11.9 H, Absolute Lymphs (auto) 1.31, Total Counted Not Reportable, Platelet Estimate ADEQUATE 06/28/18 21:25: PT 14.9, INR 1.2, APTT 30.3 06/28/18 21:25: Sodium 131 L, Potassium 4.4, Chloride 100, Carbon Dioxide 22.0, Anion Gap 9, BUN 29 H, Creatinine 1.60 H, Estim Creat Clear Calc 38.66, Est GFR (MDRD) Af Amer 54 L, Est GFR (MDRD) Non-Af 45 L, BUN/Creatinine Ratio 18.1, Glucose 262 H, Calcium 8.9, Total Bilirubin 1.00, AST 20, ALT 22, Alkaline Phosphatase 131 H, Troponin I < 0.015, Total Protein 8.2, Albumin 2.9 L, Globulin 5.3 H, Albumin/Globulin Ratio 0.5 L 06/28/18 22:00: Lactic Acid 1.6 06/29/18 05:30: Sodium 136, Potassium 4.6, Chloride 105, Carbon Dioxide 24.0, Anion Gap 7, BUN 30 H, Creatinine 1.57 H, Estim Creat Clear Calc 41.97, Est GFR (MDRD) Af Amer 55 L, Est GFR (MDRD) Non-Af 46 L, BUN/Creatinine Ratio 19.1, Glucose 240 H, Calcium 8.4 L 06/29/18 05:30: WBC 15.0 H, RBC 4.15 L, Hgb 12.0 L, Hct 36.0 L, MCV 86.7, MCH 28.9, MCHC 33.3, RDW 12.6, RDW Differential 38.7, Plt Count 234, MPV 9.2, Immature Gran % (Auto) 0.200, Neut % (Auto) 78.3 H, Lymph % (Auto) 11.5 L, Sol[place] % (Auto) 9.7, Eos % (Auto) 0.1, Baso % (Auto) 0.2, Absolute Neuts (auto) 11.7 H, Absolute Lymphs (auto) 1.73, Total Counted Not Reportable 06/29/18 06:42: POC Glucose 222 H 06/29/18 11:34: POC Glucose 306 H 06/29/18 16:22: POC Glucose 233 H 06/29/18 16:40: S.aureus Protein A PCR Pending, MRSA (PCR) Pending Current Medications Acetaminophen (Tylenol) 650 mg PO Q6H PRN PRN PRN Reason: Mild Pain (1-3)/Temp > 100.7 F Dextrose (D50w Syringe) 0 gm IV X1 PRN; Protocol PRN Reason: Hypoglycemia Enoxaparin Sodium (Lovenox) 40 mg SC DAILY@1000 [facility] Last Admin: 06/29/18 09:04 Dose: 40 mg Glucagon () 1 mg IM .X1 PRN PRN Reason: Hypoglycemia Sodium Chloride () 1,000 mls @ 100 mls/hr IV .Q10H [facility] Last Admin: 06/29/18 13:47 Dose: 100 mls/hr Piperacillin Sod/Tazobactam (Sod 3.375 gm/ Sodium Chloride) 50 mls @ 12.5 mls/hr IV Q8 [facility] Last Admin: 06/29/18 13:46 Dose: 12.5 mls/hr Vancomycin IV Pharmacy to Dose (1 ea/ Sodium Chloride) 500 mls @ 250 mls/hr IV X1 PRN; Protocol PRN Reason: Rx to Dose Vancomycin HCl 1,500 mg/ (Sodium Chloride) 530 mls @ 250 mls/hr IV Q24H [facility] Sodium Chloride () 250 mls @ 15 mls/hr IV .[id number] PRN PRN Reason: SALINE FLUSH Last Admin: 06/29/18 06:50 Dose: 15 mls/hr Insulin Glargine (Lantus (Bkc)) 35 units SC BID [facility] Last Admin: 06/29/18 09:04 Dose: 35 units Insulin Human Lispro (Humalog Kwikpen (Bkc)) 0 unit SQ ACHS [facility]; Protocol Last Admin: 06/29/18 11:44 Dose: 6 u Melatonin (Melatonin) 3 mg PO QHS PRN PRN PRN Reason: INSOMNIA Nutritional Formula (Lactose Free) (Glucerna Shake) 120 ml PO 4X/DAY [facility] Last Admin: 06/29/18 16:18 Dose: Not Given Ondansetron HCl (Zofran) 4 mg IV Q8H PRN PRN PRN Reason: NAUSEA/VOMITING Sodium Chloride () 5 - 15 ml IV UD PRN PRN Reason: SALINE FLUSH Medical Necessity - Tobacco Use Smoking Status: Never smoker Tobacco Use: Cigarettes Assessment/Plan All Active Problems (Last Updated 06/04/17 @ 09:13 by Tabby Flores) Cellulitis of right lower extremity (Acute) DM type 2, uncontrolled, with renal complications (Acute) 1. right foot cellulitis dw Dr. Oliver, who did debridement of callus and concern for osteomyelitis MRI ordered plan for surgery on 06/30 2. DM2 uncontrolled continue lantus and SSI monitor for now 3. VTE proph: LMWH Code Visit Inpatient E&M: 56923 Subs Hosp L2
--- NOTE | 2018-06-29 17:23 | PN_ITS ---
Patient Problems: Active and Suspected Problems (Last Updated 06/04/17 @ 09:13 by Tabby Flores) Cellulitis of right lower extremity (Acute) Subjective: still with erythema on right foot. Vitals/I&O's: Vital Signs Temp Pulse Resp BP Pulse Ox 36.9 C 60 18 133/52 H 96 06/29/18 16:25 06/29/18 16:25 06/29/18 16:25 06/29/18 16:25 06/29/18 16:25 Oxygen Delivery Method Room Air Weight: 99.87 kg Body Mass Index (BMI) 30.2 Intake and Output for Last 24 Hours 06/27/18 06/28/18 06/29/18 23:59 23:59 23:59 Intake Total 1395 / 1395 Output Total 776 / 776 Balance 619 / 619 General: Alert, No apparent distress HEENT: Atraumatic, Normocephalic Oral: Moist Mucosa, No Gingival or Mucosal Lesions/ Ulcerations Neck: No Nodes, Thyroid Normal Size and Texture Lungs: Clear to auscultation, Normal air movement, No rhonchi, No wheeze Cardiovascular: Regular rate, Regular Rhythm, Normal S1, Normal S2, No murmurs Abdomen: Bowel Sounds Present, Soft, Non Tender, Non-Distended, No Hepato- splenomegaly Extremities: No edema, No Calf Tenderness Skin: - - macular rash on dorsum of right foot. blister b/w right 1st and 2nd toes. large callus on 1st MTP. Psych/Mental Status: Normal Affect, Appropriate Laboratory Results 06/28/18 21:25: WBC 14.5 H, RBC 4.57 L, Hgb 13.5, Hct 39.5 L, MCV 86.4, MCH 29.5, MCHC 34.2, RDW 12.5, RDW Differential 39.8, Plt Count 244, MPV 10.1, Immature Gran % (Auto) 0.200, Neut % (Auto) 82.0 H, Lymph % (Auto) 9.0 L, Cook % (Auto) 8.3, Eos % (Auto) 0.3, Baso % (Auto) 0.2, Absolute Neuts (auto) 11.9 H, Absolute Lymphs (auto) 1.31, Total Counted Not Reportable, Platelet Estimate ADEQUATE 06/28/18 21:25: PT 14.9, INR 1.2, APTT 30.3 06/28/18 21:25: Sodium 131 L, Potassium 4.4, Chloride 100, Carbon Dioxide 22.0, Anion Gap 9, BUN 29 H, Creatinine 1.60 H, Estim Creat Clear Calc 38.66, Est GFR (MDRD) Af Amer 54 L, Est GFR (MDRD) Non-Af 45 L, BUN/Creatinine Ratio 18.1, Glucose 262 H, Calcium 8.9, Total Bilirubin 1.00, AST 20, ALT 22, Alkaline Phosphatase 131 H, Troponin I < 0.015, Total Protein 8.2, Albumin 2.9 L, Globulin 5.3 H, Albumin/Globulin Ratio 0.5 L 06/28/18 22:00: Lactic Acid 1.6 06/29/18 05:30: Sodium 136, Potassium 4.6, Chloride 105, Carbon Dioxide 24.0, Anion Gap 7, BUN 30 H, Creatinine 1.57 H, Estim Creat Clear Calc 41.97, Est GFR (MDRD) Af Amer 55 L, Est GFR (MDRD) Non-Af 46 L, BUN/Creatinine Ratio 19.1, Glucose 240 H, Calcium 8.4 L 06/29/18 05:30: WBC 15.0 H, RBC 4.15 L, Hgb 12.0 L, Hct 36.0 L, MCV 86.7, MCH 28.9, MCHC 33.3, RDW 12.6, RDW Differential 38.7, Plt Count 234, MPV 9.2, Immature Gran % (Auto) 0.200, Neut % (Auto) 78.3 H, Lymph % (Auto) 11.5 L, Cook % (Auto) 9.7, Eos % (Auto) 0.1, Baso % (Auto) 0.2, Absolute Neuts (auto) 11.7 H, Absolute Lymphs (auto) 1.73, Total Counted Not Reportable 06/29/18 06:42: POC Glucose 222 H 06/29/18 11:34: POC Glucose 306 H 06/29/18 16:22: POC Glucose 233 H 06/29/18 16:40: S.aureus Protein A PCR Pending, MRSA (PCR) Pending Current Medications Acetaminophen (Tylenol) 650 mg PO Q6H PRN PRN PRN Reason: Mild Pain (1-3)/Temp > 100.7 F Dextrose (D50w Syringe) 0 gm IV X1 PRN; Protocol PRN Reason: Hypoglycemia Enoxaparin Sodium (Lovenox) 40 mg SC DAILY@1000 [facility] Last Admin: 06/29/18 09:04 Dose: 40 mg Glucagon () 1 mg IM .X1 PRN PRN Reason: Hypoglycemia Sodium Chloride () 1,000 mls @ 100 mls/hr IV .Q10H [facility] Last Admin: 06/29/18 13:47 Dose: 100 mls/hr Piperacillin Sod/Tazobactam (Sod 3.375 gm/ Sodium Chloride) 50 mls @ 12.5 m ls/hr IV Q8 [facility] Last Admin: 06/29/18 13:46 Dose: 12.5 mls/hr Vancomycin IV Pharmacy to Dose (1 ea/ Sodium Chloride) 500 mls @ 250 mls/hr IV X1 PRN; Protocol PRN Reason: Rx to Dose Vancomycin HCl 1,500 mg/ (Sodium Chloride) 530 mls @ 250 mls/hr IV Q24H [facility] Sodium Chloride () 250 mls @ 15 mls/hr IV .[id number] PRN PRN Reason: SALINE FLUSH Last Admin: 06/29/18 06:50 Dose: 15 mls/hr Insulin Glargine (Lantus (Bkc)) 35 units SC BID [facility] Last Admin: 06/29/18 09:04 Dose: 35 units Insulin Human Lispro (Humalog Kwikpen (Bkc)) 0 unit SQ ACHS [facility]; Protocol Last Admin: 06/29/18 11:44 Dose: 6 u Melatonin (Melatonin) 3 mg PO QHS PRN PRN PRN Reason: INSOMNIA Nutritional Formula (Lactose Free) (Glucerna Shake) 120 ml PO 4X/DAY [facility] Last Admin: 06/29/18 16:18 Dose: Not Given Ondansetron HCl (Zofran) 4 mg IV Q8H PRN PRN PRN Reason: NAUSEA/VOMITING Sodium Chloride () 5 - 15 ml IV UD PRN PRN Reason: SALINE FLUSH Medical Necessity - Tobacco Use Smoking Status: Never smoker Tobacco Use: Cigarettes Assessment/Plan All Active Problems (Last Updated 06/04/17 @ 09:13 by Tabby Flores) Cellulitis of right lower extremity (Acute) DM type 2, uncontrolled, with renal complications (Acute) 1. right foot cellulitis * dw Dr. Oliver, who did debridement of callus and concern for osteomyelitis * MRI ordered * plan for surgery on 06/30 2. DM2 uncontrolled * continue lantus and SSI * monitor for now 3. VTE proph: LMWH Code Visit Inpatient E&M: [id number] Subs Hosp L2
[2018-06-29 18:26] LABS: M R Staph aureus DNA By PCR Negative (Negative); Probe Check PASS; Specimen Processing Control PASS; Staph aureus DNA By PCR NEGATIVE (Negative)
[2018-06-29] MEDS: 0.9% NaCl Peripheral Flush Adult/Peds IV (21:39)
[2018-06-29 21:51] LABS: Bedside Glucose 222 mg/dL (70-110)
[2018-06-30] VITALS (14 sets, daily range): BP systolic 105–152; BP diastolic 53–77; PULSE 44–69; RESP 16–18; TEMP 35.8–37.7; O2SAT 95–99; BMI 30.2; BMI 31.3
[2018-06-30] MEDS: MELATONIN 3 MG TABLET PO (00:29)
[2018-06-30] MEDS: 0.9% Normal Saline 1,000 ML 100 ML IV ×2 (00:29→09:39)
--- NOTE | 2018-06-30 01:26 | NURSING ---
pt setting off bed exit. pt ripped iv out. new iv started. Pt confused at this time.
--- NOTE | 2018-06-30 03:29 | NURSING ---
PT GETTING OUT OF BED WITH HELP. PT TALKING ABOUT THE KIDS THAT WHERE IN HIS ROOM. PT INSTRUCTED NO KIDS WHERE IN IS ROOM. PT CONFUSED . ORIENTED TO NAME AND YEAR.
[2018-06-30 05:52] LABS: Absolute Lymphocyte Count 1.74 X10^3/ul (0.83-4.51); Absolute Neutrophil Count 11.4 X10^3/uL (2.0-7.7); Basophil# 0.04 X10^3/uL; Basophil% 0.3 % (0-1); Eosinophil# 0.02 X10^3/uL; Eosinophils% 0.1 % (0-5); Hemoglobin 11.4 g/dl (13.0-16.5); Lymphocyte # 1.74 X10^3/ul (4.0); Lymphocyte % 11.9 % (19-41); Mean Corp Hgb Conc 32.6 g/gl (32-36); Mean Corpuscular Hgb 28.5 pg (27.0-32.0); Mean Corpuscular Volume 87.5 fL (80-94); Mean Platelet Vol. 9.3 fl (6.2-12.0); Monocyte# 1.38 X10^3/uL; Monocyte% 9.4 % (0-10); Neutrophil # 11.43 X10^3/uL (2.7-7.7); Neutrophil % 78.1 % (47-70); Platelet Count 241 K/mm3 (150-450); RBC Distribution Width CV 12.4 % (11.6-14.6); RBC Distribution Width SD 38.8 fl (35.1-43.9); White Blood Count 14.6 K/mm3 (4.4-11.0)
[2018-06-30 05:56] LABS: Bedside Glucose 197 mg/dL (70-110)
[2018-06-30 05:57] LABS: Anion Gap 7 (5-15); BUN 25 mg/dL (7-18); BUN/Creat Ratio 16.3 RATIO (10-20); Calcium,Total 8.2 mg/dL (8.5-10.1); Chloride 108 mmol/L (98-107); Creatinine, Serum 1.53 mg/dL (0.70-1.30); EST Glomerular Filtration Rate 47 mL/min (>60); Est Glom Filt Rate - Afr Amer 57 mL/min (>60); Estimated Creatinine Clearance 43.06 ml/min; Glucose 196 mg/dL (74-106); Potassium 4.5 mmol/L (3.5-5.1); Sodium Level 138 mmol/L (136-145)
--- NOTE | 2018-06-30 05:57 | NURSING ---
pt said he has tried to call his but she wont answer
--- NOTE | 2018-06-30 05:59 | NURSING ---
Attempted to call pt but the phone just rang.
[2018-06-30 06:03] LABS: POSITIVE COUNT NO; POSITIVE DIFFERENTIAL NO; POSITIVE MORPHOLOGY NO
[2018-06-30] MEDS: Bupivacaine Mpf 0.5% 30 ML VIAL (07:11)
--- NOTE | 2018-06-30 08:02 | OP.PCM_ITS ---
Report of Operation Date of Procedure: 06/30/18 Pre-Operative Diagnosis: Abscess, cellulitis, diabetic foot infection right foot. 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 Deep culture of infection right foot sent to microbiology. 2. Debrided soft tissue from right foot sent to pathology. 3. Excised sesamoids from right foot sent to pathology Estimated Blood Loss (mL): 5mL Description of Procedure: Indications: This is a 77 year old gentleman with history of multiple medical problems, including but not limited to poorly controlled diabetes, CAD, CKD who presented the ER and was admitted due to right foot infection. There is cellulitis, with nonviable necrotic infected tissue to the right foot, MRI c/w osteomyelitis to the sesamoid. We discussed the options, and patient would like to proceed I+D with debridement of right foot with sesamoidectomy. Reviewed the possible benefits vs risks, goals, expectations and estimated healing time. Ultimately patient understands he is at risk for persistent or even worsening infection and ultimate limb loss or life. Also advised patient risks also include but are not limited to need for further surgery, blood clots, weakness, transfer lesions, ischemia, bleeding, pain, chronic pain, deformity, numbness, swelling, inability to walk or wear shoes, charcot foot, complex regional pain syndrome, and again loss of limb, and loss of life. Patient expressed understanding and agreement. All of her questions were answered. The consent form was reviewed with patient, and the patient freely signed it. Also with patient's consent I did review with patient's . Operative Procedure: The patient was brought back to the operating room and was placed on the operating room table in the supine position. The patient was carefully secured to the operating room table with a safety belt around his waist. The patient was already on IV antibiotics. A time out was performed and the patient was properly identified and the surgical plan was confirmed. The patient received MAC anesthesia per the anesthesia team, and 10mL of 0.5% Marcaine plain was given as a forefoot nerve block. A well padded pneumatic tourniquet was applied to the right ankle. The right foot was scrubbed, prepped and draped in the usual aseptic fashion. Further attention was directed to the left foot, there was cellulitis, draining purulence, cellulitis, maloder, necrosis, nonviable tissue and significant infection to the 1st and 2nd rays of the right foot. There were open lesions to the dorsal 1st interdigital space with bulla formation, and also sub 1st m etatarsal head with draining purulence. The right foot was elevated for 3 minutes and the left ankle pneumatic tourniquet was inflated to 250mmHg. At this time an incision was made sub 1st metatarsal head as well as dorsal 1st IM/ID space, also an incision to the medial 1st metatarsal phalangeal joint. There was significant purulence at these levels, and tracked down to the deep tissue and down to the sesamoids, going over to the 2nd metatarsal phalangeal joint area. Deep subcutaneous tissue layer, tendon, muscle were involved. The abscess was drained and excised using a 15 blade, all nonviable, necrotic infected tissue was debrided away using a 15 blade and sent to pathology. The sesamoids were noted to be soft, nonviable and infected, they were somers/yellow in color. The sesamoids were excised and sent to pathology. There was extensive soft tissue involvement of this infection, and patient at very high risk of needing further surgery - very concerning for need for possible amputation in future. The surgical site was flushed out with copious amounts of normal saline solution. The pneumatic tourniquet was deflated. The remaining tissues were noted to be healthy and viable, however there was delayed capillary fill time to the 1st and 2nd toes. Adaptic was applied, and the sites were packed with gauze packing, and overlying dressing was applied which consisted of 4x4 gauze, kerlix, and aniya (applied very lightly). Total tourniquet time was 38 minutes. The patient tolerated the above procedure well and anesthesia well with no complications. The patient will return to the floor and will be followed as an inpatient. No weightbearing right foot, and the dressing will be changed tomorrow. Grafts/Implants Used: None - Complications None
[2018-06-30 08:10] LABS: Bedside Glucose 220 mg/dL (70-110)
--- NOTE | 2018-06-30 09:00 | RAD_ITS ---
STUDY: X-RAY - RIGHT FOOT CLINICAL: Male, 77 years old. Postop incision and drainage TECHNIQUE: 3 view(s) of the foot. COMPARISON: None. FINDINGS: No fracture or dislocation. The joint spaces are maintained. There is subcutaneous emphysema in the region of the first and second interphalangeal soft tissue in keeping with known recent incision and drainage. There is calcaneal enthesopathy. There is no definite osseous erosion. RAD/Foot min 3 Views IMPRESSION: See above. Electronically Signed: Pat Araya, at 11:25 EDT Tel , Service support ,
[2018-06-30] MEDS: Magnesium Oxide 400 MG Tablet PO ×2 (09:39→17:19)
[2018-06-30] MEDS: Glucerna Shake 120 ML LIQUID PO ×4 (09:39→21:01)
[2018-06-30] MEDS: Enoxaparin 40 MG/0.4 ML Syringe SC (09:40)
[2018-06-30] MEDS: Insulin Lispro 100 UNIT/ML INSULN.PEN SQ ×3 (09:40→21:01)
--- NOTE | 2018-06-30 11:04 | PCM.PN.HOSP ---
Patient Problems: Active and Suspected Problems (Last Updated 06/04/17 @ 09:13 by Tabby Flores) Cellulitis of right lower extremity (Acute) Subjective: Status post I+D today. Concerned that breakfast was brought to him late (because of surgery), when his lunch will arrive around 11am. Still concerned about the change of some his DM meds, that during that transition, the cellulitis began. Still thinks that is what caused the cellulitis. Vitals/I&O's: Vital Signs Temp Pulse Resp BP Pulse Ox 36.4 C L 60 16 121/55 H 99 06/30/18 10:00 06/30/18 10:00 06/30/18 10:00 06/30/18 10:00 06/30/18 10:00 Oxygen Delivery Method Room Air Weight: 103.2 kg Body Mass Index (BMI) 31.3 Intake and Output for Last 24 Hours 06/28/18 06/29/18 06/30/18 23:59 23:59 23:59 Intake Total 3340 / 3340 1155 / 1155 Output Total 776 / 776 Balance 2564 / 2564 1155 / 1155 General: Alert, No apparent distress HEENT: Atraumatic, Normocephalic Oral: Moist Mucosa, No Gingival or Mucosal Lesions/ Ulcerations Neck: No Nodes, Thyroid Normal Size and Texture Lungs: Clear to auscultation, Normal air movement, No rhonchi, No wheeze Cardiovascular: Regular rate, Regular Rhythm, Normal S1, Normal S2, No murmurs Abdomen: Bowel Sounds Present, Soft, Non Tender, Non-Distended, No Hepato-splenomegaly Extremities: - - right foot bandaged--did not remove. Skin: No rashes, No breakdown Musculoskeletal: No Tenderness to Palpation of Joints or Extremities, No Muscle Wasting Psych/Mental Status: Normal Affect, Appropriate Laboratory Results 06/29/18 11:34: POC Glucose 306 H 06/29/18 16:22: POC Glucose 233 H 06/29/18 16:40: S.aureus Protein A PCR NEGATIVE, MRSA (PCR) Negative 06/29/18 21:35: POC Glucose 222 H 06/30/18 05:28: WBC 14.6 H, RBC 4.00 L, Hgb 11.4 L, Hct 35.0 L, MCV 87.5, MCH 28.5, MCHC 32.6, RDW 12.4, RDW Differential 38.8, Plt Count 241, MPV 9.3, Immature Gran % (Auto) 0.200, Neut % (Auto) 78.1 H, Lymph % (Auto) 11.9 L, [place] % (Auto) 9.4, Eos % (Auto) 0.1, Baso % (Auto) 0.3, Absolute Neuts (auto) 11.4 H, Absolute Lymphs (auto) 1.74, Total Counted Not Reportable 06/30/18 05:28: Sodium 138, Potassium 4.5, Chloride 108 H, Carbon Dioxide 23.0, Anion Gap 7, BUN 25 H, Creatinine 1.53 H, Estim Creat Clear Calc 43.06, Est GFR (MDRD) Af Amer 57 L, Est GFR (MDRD) Non-Af 47 L, BUN/Creatinine Ratio 16.3, Glucose 196 H, Calcium 8.2 L 06/30/18 05:28: Hemoglobin A1c 8.0 H 06/30/18 05:46: POC Glucose 197 H 06/30/18 08:08: POC Glucose 220 H Current Medications Acetaminophen (Tylenol) 650 mg PO Q6H PRN PRN PRN Reason: Mild Pain (1-3)/Temp > 100.7 F Dextrose (D50w Syringe) 0 gm IV X1 PRN; Protocol PRN Reason: Hypoglycemia Enoxaparin Sodium (Lovenox) 40 mg SC DAILY@1000 [facility] Last Admin: 06/30/18 09:40 Dose: 40 mg Glucagon () 1 mg IM .X1 PRN PRN Reason: Hypoglycemia Sodium Chloride () 1,000 mls @ 100 mls/hr IV .Q10H [facility] Last Admin: 06/30/18 09:39 Dose: 100 mls/hr Piperacillin Sod/Tazobactam (Sod 3.375 gm/ Sodium Chloride) 50 mls @ 12.5 mls/hr IV Q8 [facility] Last Admin: 06/30/18 05:09 Dose: 12.5 mls/hr Vancomycin IV Pharmacy to Dose (1 ea/ Sodium Chloride) 500 mls @ 250 mls/hr IV X1 PRN; Protocol PRN Reason: Rx to Dose Vancomycin HCl 1,500 mg/ (Sodium Chloride) 530 mls @ 250 mls/hr IV Q24H [facility] Last Admin: 06/30/18 01:24 Dose: 250 mls/hr Sodium Chloride () 250 mls @ 15 mls/hr IV .[id number] PRN PRN Reason: SALINE FLUSH Last Admin: 06/29/18 06:50 Dose: 15 mls/hr Insulin Glargine (Lantus (Bkc)) 35 units SC BID [facility] Last Admin: 06/30/18 09:39 Dose: 35 units Insulin Human Lispro (Humalog Kwikpen (Bk)) 0 unit SQ ACHS [facility]; Protocol Last Admin: 06/30/18 09:40 Dose: 2 u [facility] ([facility] 400) [facility] Last Admin: 06/30/18 09:39 Dose: 400 mg Melatonin (Melatonin) 3 mg PO QHS PRN PRN PRN Reason: INSOMNIA Last Admin: 06/30/18 00:29 Dose: 3 mg Nutritional Formula (Lactose Free) (Glucerna Shake) 120 ml PO 4X/DAY [facility] Last Admin: 06/30/18 09:39 Dose: 120 ml Ondansetron HCl (Zofran) 4 mg IV Q8H PRN PRN PRN Reason: NAUSEA/VOMITING Sodium Chloride () 5 - 15 ml IV UD PRN PRN Reason: SALINE FLUSH Last Admin: 06/29/18 21:39 Dose: 10 ml Medical Necessity - Tobacco Use Smoking Status: Never smoker Tobacco Use: Cigarettes Assessment/Plan All Active Problems (Last Updated 06/04/17 @ 09:13 by Tabby Flores) Cellulitis of right lower extremity (Acute) DM type 2, uncontrolled, with renal complications (Acute) 1. right foot cellulitis and sesamoid osteomyelitis s/p Incision, drainage and debridment of all nonviable, infected soft tissue and bone right foot on 06/30 on Vanc and Zosyn ID consult for long-term recommendations. 2. DM2 uncontrolled continue lantus and SSI monitor for now Continue to reassure patient that the change of his diabetes medications did not could directly contributed to his a cellulitis and that is probably more coincidental that the cellulitis began during that transition. 3. VTE proph: LMWH Code Visit Inpatient E&M: 53821 Subs Hosp L2
--- NOTE | 2018-06-30 11:09 | PN_ITS ---
Patient Problems: Active and Suspected Problems (Last Updated 06/04/17 @ 09:13 by Tabby Flores) Cellulitis of right lower extremity (Acute) Subjective: Status post I+D today. Concerned that breakfast was brought to him late (because of surgery), when his lunch will arrive around 11am. Still concerned about the change of some his DM meds, that during that transition, the cellulitis began. Still thinks that is what caused the cellulitis. Vitals/I&O's: Vital Signs Temp Pulse Resp BP Pulse Ox 36.4 C L 60 16 121/55 H 99 06/30/18 10:00 06/30/18 10:00 06/30/18 10:00 06/30/18 10:00 06/30/18 10:00 Oxygen Delivery Method Room Air Weight: 103.2 kg Body Mass Index (BMI) 31.3 Intake and Output for Last 24 Hours 06/28/18 06/29/18 06/30/18 23:59 23:59 23:59 Intake Total 3340 / 3340 1155 / 1155 Output Total 776 / 776 Balance 2564 / 2564 1155 / 1155 General: Alert, No apparent distress HEENT: Atraumatic, Normocephalic Oral: Moist Mucosa, No Gingival or Mucosal Lesions/ Ulcerations Neck: No Nodes, Thyroid Normal Size and Texture Lungs: Clear to auscultation, Normal air movement, No rhonchi, No wheeze Cardiovascular: Regular rate, Regular Rhythm, Normal S1, Normal S2, No murmurs Abdomen: Bowel Sounds Present, Soft, Non Tender, Non-Distended, No Hepato- splenomegaly Extremities: - - right foot bandaged--did not remove. Skin: No rashes, No breakdown Musculoskeletal: No Tenderness to Palpation of Joints or Extremities, No Muscle Wasting Psych/Mental Status: Normal Affect, Appropriate Laboratory Results 06/29/18 11:34: POC Glucose 306 H 06/29/18 16:22: POC Glucose 233 H 06/29/18 16:40: S.aureus Protein A PCR NEGATIVE, MRSA (PCR) Negative 06/29/18 21:35: POC Glucose 222 H 06/30/18 05:28: WBC 14.6 H, RBC 4.00 L, Hgb 11.4 L, Hct 35.0 L, MCV 87.5, MCH 28.5, MCHC 32.6, RDW 12.4, RDW Differential 38.8, Plt Count 241, MPV 9.3, Immature Gran % (Auto) 0.200, Neut % (Auto) 78.1 H, Lymph % (Auto) 11.9 L, [place] % (Auto) 9.4, Eos % (Auto) 0.1, Baso % (Auto) 0.3, Absolute Neuts (auto) 11.4 H, Absolute Lymphs (auto) 1.74, Total Counted Not Reportable 06/30/18 05:28: Sodium 138, Potassium 4.5, Chloride 108 H, Carbon Dioxide 23.0, Anion Gap 7, BUN 25 H, Creatinine 1.53 H, Estim Creat Clear Calc 43.06, Est GFR (MDRD) Af Amer 57 L, Est GFR (MDRD) Non-Af 47 L, BUN/Creatinine Ratio 16.3, Glucose 196 H, Calcium 8.2 L 06/30/18 05:28: Hemoglobin A1c 8.0 H 06/30/18 05:46: POC Glucose 197 H 06/30/18 08:08: POC Glucose 220 H Current Medications Acetaminophen (Tylenol) 650 mg PO Q6H PRN PRN PRN Reason: Mild Pain (1-3)/Temp > 100.7 F Dextrose (D50w Syringe) 0 gm IV X1 PRN; Protocol PRN Reason: Hypoglycemia Enoxaparin Sodium (Lovenox) 40 mg SC DAILY@1000 [facility] Last Admin: 06/30/18 09:40 Dose: 40 mg Glucagon () 1 mg IM .X1 PRN PRN Reason: Hypoglycemia Sodium Chloride () 1,000 mls @ 100 mls/hr IV .Q10H [facility] Last Admin: 06/30/18 09:39 Dose: 100 mls/hr Piperacillin Sod/Tazobactam (Sod 3.375 gm/ Sodium Chloride) 50 mls @ 12.5 mls/hr IV Q8 [facility] Last Admin: 06/30/18 05:09 Dose: 12.5 mls/hr Vancomycin IV Pharmacy to Dose (1 ea/ Sodium Chloride) 500 mls @ 250 mls/hr IV X1 PRN; Protocol PRN Reason: Rx to Dose Vancomycin HCl 1,500 mg/ (Sodium Chloride) 530 mls @ 250 mls/hr IV Q24H [facility] Last Admin: 06/30/18 01:24 Dose: 250 mls/hr Sodium Chloride () 250 mls @ 15 mls/hr IV .[id number] PRN PRN Reason: SALINE FLUSH Last Admin: 06/29/18 06:50 Dose: 15 mls/hr Insulin Glargine (Lantus (Bkc)) 35 units SC BID [facility] Last Admin: 06/30/18 09:39 Dose: 35 units Insulin Human Lispro (Humalog Kwikpen (Bkc)) 0 unit SQ ACHS [facility]; Protocol Last Admin: 06/30/18 09:40 Dose: 2 u [facility] ([facility] 400) [facility] Last Admin: 06/30/18 09:39 Dose: 400 mg Melatonin (Melatonin) 3 mg PO QHS PRN PRN PRN Reason: INSOMNIA Last Admin: 06/30/18 00:29 Dose: 3 mg Nutritional Formula (Lactose Free) (Glucerna Shake) 120 ml PO 4X/DAY [facility] Last Admin: 06/30/18 09:39 Dose: 120 ml Ondansetron HCl (Zofran) 4 mg IV Q8H PRN PRN PRN Reason: NAUSEA/VOMITING Sodium Chloride () 5 - 15 ml IV UD PRN PRN Reason: SALINE FLUSH Last Admin: 06/29/18 21:39 Dose: 10 ml Medical Necessity - Tobacco Use Smoking Status: Never smoker Tobacco Use: Cigarettes Assessment/Plan All Active Problems (Last Updated 06/04/17 @ 09:13 by Tabby Flores) Cellulitis of right lower extremity (Acute) DM type 2, uncontrolled, with renal complications (Acute) 1. right foot cellulitis and sesamoid osteomyelitis * s/p Incision, drainage and debridment of all nonviable, infected soft tissue and bone right foot on 06/30 * on Vanc and Zosyn * ID consult for long-term recommendations. 2. DM2 uncontrolled * continue lantus and SSI * monitor for now * Continue to reassure patient that the change of his diabetes medications did not could directly contributed to his a cellulitis and that is probably more coincidental that the cellulitis began during that transition. 3. VTE proph: LMWH Code Visit Inpatient E&M: 32129 Subs Hosp L2
[2018-06-30 17:30] LABS: Bedside Glucose 239 mg/dL (70-110)
[2018-06-30 21:06] LABS: Bedside Glucose 207 mg/dL (70-110)
--- NOTE | 2018-06-30 22:43 | NURSING ---
PT VERY VERBALLY ABUSIVE TO THE STAFF. PT KEEPS USING THE F WORD. PT REFUSES TO USE THE URINAL. PT INSIST ON GETTING UP AND PUTTING WEIGHT ON HIS FOOT. INFORMED PT THAT HE NEEDS TO USE THE URINAL. PT SAID I AM NOT GOING TO SHIT MY PANTS. OFFERED THE BSC. PT SAID HE COULD NOT FIT HIS JUNK IN IT. PT THEN WALKED TO BATHROOM WITH WALKER AND ASST OF 2. PT THEN SAT ON THE TOILET WITH THE SEAT UP. PT INSTRUCTED NOT TO TALK TO STAFF AND PT CONTINUED TO YELL AND USE F WORK. INFORMED PT THAT HIS MD DOES NOT WANT HIM TO PUT WEIGHT ON IT. PT SAID TO HAVE THE MD COME IN AND TELL HIM THAT
[2018-07-01 00:51] LABS: Vancomycin, Trough Level 8.8 ug/mL (5.0-15.0)
[2018-07-01 01:15] LABS: Bedside Glucose 192 mg/dL (70-110)
--- NOTE | 2018-07-01 02:50 | PCM.RX.CS ---
Consult Pharmacy has been consulted to manage selected antiobiotic: Vancomycin Type of Consult: Follow-up Suspected Infection: Skin/Soft tissue Labs: Sodium 138 mmol/L (136-145) 06/30/18 05:28 Potassium 4.5 mmol/L (3.5-5.1) 06/30/18 05:28 Chloride 108 mmol/L (98-107) H 06/30/18 05:28 Carbon Dioxide 23.0 mmol/L (21.0-32.0) 06/30/18 05:28 Anion Gap 7 (5-15) 06/30/18 05:28 BUN 25 mg/dL (7-18) H 06/30/18 05:28 Creatinine 1.53 mg/dL (0.70-1.30) H 06/30/18 05:28 Est GFR (MDRD) Af Amer 57 mL/min (>60) L 06/30/18 05:28 Est GFR (MDRD) Non-Af 47 mL/min (>60) L 06/30/18 05:28 BUN/Creatinine Ratio 16.3 RATIO (10-20) 06/30/18 05:28 Glucose 196 mg/dL (74-106) H 06/30/18 05:28 Vancomycin Trough 8.8 ug/mL (5.0-15.0) 07/01/18 00:00 Microbiology: Microbiology 06/29/18 16:40 Wound Abcess - Right Foot Gram Stain - Final 06/29/18 16:40 Wound Abcess - Right Foot Wound Culture - Preliminary Gram negative robbin Gram positive robbin 06/30/18 07:45 Wound Abcess - Right Foot Gram Stain - Final Pharmacy Plan for Drug Dosing: Pharmacy Service will continue to monitor and adjust dosing as required. Medications Vancomycin HCl 1,250 mg/ (Sodium Chloride) 275 mls @ 167 mls/hr IV Q12H [facility] TROUGH 8.8 NEW DOSE 1250 Q12H NEXT TROUGH 07/03 @ 0100 Follow-Up Labs: Trough Vancomycin Labs to be done on [date and time ordered]: 07/03 @ 0100
[2018-07-01 03:42] VITALS: BP 141/59; PULSE 64; RESP 17; TEMP 36.4; O2SAT 95
[2018-07-01 05:52] LABS: Absolute Lymphocyte Count 2.05 X10^3/ul (0.83-4.51); Absolute Neutrophil Count 8.8 X10^3/uL (2.0-7.7); Basophil# 0.07 X10^3/uL; Basophil% 0.6 % (0-1); Eosinophils% 0.8 % (0-5); Hematocrit 34.4 % (40-54); Hemoglobin 11.6 g/dl (13.0-16.5); Lymphocyte # 2.05 X10^3/ul (4.0); Lymphocyte % 17.2 % (19-41); Mean Corp Hgb Conc 33.7 g/gl (32-36); Mean Corpuscular Hgb 29.6 pg (27.0-32.0); Mean Corpuscular Volume 87.8 fL (80-94); Mean Platelet Vol. 9.4 fl (6.2-12.0); Monocyte# 0.91 X10^3/uL; Monocyte% 7.6 % (0-10); Neutrophil # 8.79 X10^3/uL (2.7-7.7); Neutrophil % 73.7 % (47-70); Platelet Count 243 K/mm3 (150-450); RBC Distribution Width CV 12.7 % (11.6-14.6); RBC Distribution Width SD 40.9 fl (35.1-43.9); Red Blood Count 3.92 M/mm3 (4.6-6.2); White Blood Count 11.9 K/mm3 (4.4-11.0)
[2018-07-01 05:53] LABS: Anion Gap 6 (5-15); BUN 21 mg/dL (7-18); BUN/Creat Ratio 15.8 RATIO (10-20); Calcium,Total 8.3 mg/dL (8.5-10.1); Chloride 110 mmol/L (98-107); Creatinine, Serum 1.33 mg/dL (0.70-1.30); EST Glomerular Filtration Rate 55 mL/min (>60); Est Glom Filt Rate - Afr Amer 67 mL/min (>60); Estimated Creatinine Clearance 49.54 ml/min; Glucose 158 mg/dL (74-106); Sodium Level 140 mmol/L (136-145)
[2018-07-01 06:06] LABS: POSITIVE COUNT NO; POSITIVE DIFFERENTIAL NO; POSITIVE MORPHOLOGY NO
[2018-07-01] MEDS: Insulin Lispro 100 UNIT/ML INSULN.PEN SQ ×4 (06:51→23:09)
[2018-07-01 06:56] LABS: Bedside Glucose 154 mg/dL (70-110)
--- NOTE | 2018-07-01 07:26 | PN_ITS ---
Patient Problems: Active and Suspected Problems (Last Updated 06/04/17 @ 09:13 by Tabby Flores) Cellulitis of right lower extremity (Acute) Subjective: Patient was seen this morning for follow up right foot. Bandage reinforced overnight due to bleeding. Patient nonadherent, received reports patient was walking on foot despite instructions not to. Patient also cursing at nurses overnight. This morning patient resting comfortably in bed, afebrile, still with leukocytosis but improved and trending down. Patient with no complaints of fever, chills, nausea or vomiting. - Physical Exam General: Alert, Oriented x3, Cooperative, No apparent distress Extremities: Capillary Refill Less than 3 Seconds, No Calf Tenderness, - - Right foot: s/p I+D and wide debridement of 1st and 2nd rays, overall tissue is healthy and viable with no purulence or maloder today, down to deep subcutaneous tissue, tendon and joint capsule; resolving cellulitis, no visible abscess, no new areas of necrosis, CFT < 2 seconds to all toes with vascular status intact to right foot. Vital Signs Temp Pulse Resp BP Pulse Ox 97.5 F L 64 17 141/59 H 95 07/01/18 03:42 07/01/18 03:42 07/01/18 03:42 07/01/18 03:42 07/01/18 03:42 Oxygen Delivery Method Room Air Weight: 103.2 kg Body Mass Index (BMI) 31.3 Intake and Output for Last 24 Hours 06/29/18 06/30/18 07/01/18 23:59 23:59 23:59 Intake Total 3340 / 3340 1155 / 1155 1500 / 1500 Output Total 776 / 776 400 / 400 Balance 2564 / 2564 755 / 755 1500 / 1500 Microbiology Past 72 Hours 06/29/18 16:40 Gram Stain - Final Wound Abcess - Right Foot Wound Culture - Preliminary Gram negative robbin Gram positive robbin 06/30/18 07:45 Gram Stain - Final Wound Abcess - Right Foot Laboratory Tests Past 24 Hrs 06/30/18 07/01/18 07/01/18 05:28 00:00 05:22 WBC 11.9 H RBC 3.92 L Hgb 11.6 L Hct 34.4 L MCV 87.8 MCH 29.6 MCHC 33.7 RDW 12.7 RDW Differential 40.9 Plt Count 243 MPV 9.4 Immature Gran % (Auto) 0.100 Neut % (Auto) 73.7 H Lymph % (Auto) 17.2 L [place] % (Auto) 7.6 Eos % (Auto) 0.8 Baso % (Auto) 0.6 Absolute Neuts (auto) 8.8 H Absolute Lymphs (auto) 2.05 Total Counted Not Reportable Sodium Potassium Chloride Carbon Dioxide Anion Gap BUN Creatinine Estim Creat Clear Calc Est GFR (MDRD) Af Amer Est GFR (MDRD) Non-Af BUN/Creatinine Ratio Glucose Hemoglobin A1c 8.0 H Calcium Vancomycin Trough 8.8 07/01/18 05:22 WBC RBC Hgb Hct MCV MCH MCHC RDW RDW Differential Plt Count MPV Immature Gran % (Auto) Neut % (Auto) Lymph % (Auto) [place] % (Auto) Eos % (Auto) Baso % (Auto) Absolute Neuts (auto) Absolute Lymphs (auto) Total Counted Sodium 140 Potassium 4.0 Chloride 110 H Carbon Dioxide 24.0 Anion Gap 6 BUN 21 H Creatinine 1.33 H Estim Creat Clear Calc 49.54 Est GFR (MDRD) Af Amer 67 Est GFR (MDRD) Non-Af 55 L BUN/Creatinine Ratio 15.8 Glucose 158 H Hemoglobin A1c Calcium 8.3 L Vancomycin Trough POC Glucose 07/01/18 06/30/18 06/30/18 06:49 20:55 17:17 POC Glucose 154 H 207 H 239 H 06/30/18 06/30/18 09:35 08:08 POC Glucose 192 H 220 H Medical Necessity - Tobacco Use Smoking Status: Never smoker Tobacco Use: Cigarettes Assessment/Plan All Active Problems (Last Updated 06/04/17 @ 09:13 by Tabby Flores) Cellulitis of right lower extremity (Acute) DM type 2, uncontrolled, with renal complications (Acute) Cellulitis, abscess right forefoot s/p I+D debridement on 06/30/18 Sesamoid osteomyelitis right forefoot s/p excision on 06/30/18 Diabetes with peripheral neuropathy Peripheral Vascular Disease Clinically right foot infection much improved. There is resolving signs/symptoms of infection right foot, no purulence or maloder today. Tissues much healthier in appearance. Wet to dry dressing with normal saline solution, gauze, kerlix and aniya applied. Change BID. We will continue to proceed with wound care at this time, and allow for healing, however pending healing patient understands he may require possible future amputation. Reviewed noninvasive lower extremity arterial studies - which were noted to be normal. Continue with IV antibiotic therapy - Infectious Disease has been consulted. I spoke with patient and his , and based on discussion recommend patient go to SNF rehab facility. Diabetes, and other medical management per hospitalist team. Will continue to follow.
[2018-07-01 09:43] VITALS: BP 152/67; PULSE 57; RESP 16; TEMP 36.8; O2SAT 95
[2018-07-01] MEDS: Magnesium Oxide 400 MG Tablet PO ×2 (10:44→16:43)
[2018-07-01] MEDS: Glucerna Shake 120 ML LIQUID PO ×4 (10:44→23:00)
[2018-07-01] MEDS: Enoxaparin 40 MG/0.4 ML Syringe SC (10:45)
[2018-07-01 11:21] LABS: Bedside Glucose 172 mg/dL (70-110)
--- NOTE | 2018-07-01 11:43 | PCM.PN.HOSP ---
Patient Problems: Active and Suspected Problems (Last Updated 06/04/17 @ 09:13 by Tabby Flores) Cellulitis of right lower extremity (Acute) Subjective: Upset about being here, but understands why. Wants to go home upon discharge rather than a SNF (if necessary) Vitals/I&O's: Vital Signs Temp Pulse Resp BP Pulse Ox 36.8 C 57 L 16 152/67 H 95 07/01/18 09:43 07/01/18 09:43 07/01/18 09:43 07/01/18 09:43 07/01/18 09:43 Oxygen Delivery Method Room Air Weight: 103.2 kg Body Mass Index (BMI) 31.3 Intake and Output for Last 24 Hours 06/29/18 06/30/18 07/01/18 23:59 23:59 23:59 Intake Total 3340 / 3340 1155 / 1155 1500 / 1500 Output Total 776 / 776 400 / 400 Balance 2564 / 2564 755 / 755 1500 / 1500 General: Alert, No apparent distress HEENT: Atraumatic, Normocephalic Oral: Moist Mucosa, No Gingival or Mucosal Lesions/ Ulcerations Neck: No Nodes, Thyroid Normal Size and Texture Lungs: Clear to auscultation, Normal air movement, No rhonchi, No wheeze Cardiovascular: Regular rate, Regular Rhythm, Normal S1, Normal S2, No murmurs Abdomen: Bowel Sounds Present, Soft, Non Tender, Non-Distended Extremities: - - right foot and ankle bandaged--did not remove. Psych/Mental Status: Normal Affect, Appropriate Microbiology Past 72 Hours 06/30/18 07:45 Wound Abcess - Right Foot Gram Stain - Final 06/30/18 07:45 Wound Abcess - Right Foot Wound Culture - Preliminary Gram negative robbin Gram positive organism 06/29/18 16:40 Wound Abcess - Right Foot Gram Stain - Final 06/29/18 16:40 Wound Abcess - Right Foot Wound Culture - Preliminary Klebsiella oxytoca Gram positive robbin Gram Positive Cocci 06/28/18 22:00 Blood Culture (Wb) - Left Forearm Blood Culture - Preliminary No growth in 48 hours. 06/28/18 22:00 Blood Culture (Wb) - Anticubital Left Blood Culture - Preliminary No growth in 48 hours. Laboratory Results 06/30/18 09:35: POC Glucose 192 H 06/30/18 17:17: POC Glucose 239 H 06/30/18 20:55: POC Glucose 207 H 07/01/18 00:00: Vancomycin Trough 8.8 07/01/18 05:22: WBC 11.9 H, RBC 3.92 L, Hgb 11.6 L, Hct 34.4 L, MCV 87.8, MCH 29.6, MCHC 33.7, RDW 12.7, RDW Differential 40.9, Plt Count 243, MPV 9.4, Immature Gran % (Auto) 0.100, Neut % (Auto) 73.7 H, Lymph % (Auto) 17.2 L, [place] % (Auto) 7.6, Eos % (Auto) 0.8, Baso % (Auto) 0.6, Absolute Neuts (auto) 8.8 H, Absolute Lymphs (auto) 2.05, Total Counted Not Reportable 07/01/18 05:22: Sodium 140, Potassium 4.0, Chloride 110 H, Carbon Dioxide 24.0, Anion Gap 6, BUN 21 H, Creatinine 1.33 H, Estim Creat Clear Calc 49.54, Est GFR (MDRD) Af Amer 67, Est GFR (MDRD) Non-Af 55 L, BUN/Creatinine Ratio 15.8, Glucose 158 H, Calcium 8.3 L 07/01/18 06:49: POC Glucose 154 H 07/01/18 10:49: POC Glucose 172 H Current Medications Acetaminophen (Tylenol) 650 mg PO Q6H PRN PRN PRN Reason: Mild Pain (1-3)/Temp > 100.7 F Dextrose (D50w Syringe) 0 gm IV X1 PRN; Protocol PRN Reason: Hypoglycemia Enoxaparin Sodium (Lovenox) 40 mg SC DAILY@1000 [facility] Last Admin: 07/01/18 10:45 Dose: 40 mg Glucagon () 1 mg IM .X1 PRN PRN Reason: Hypoglycemia Piperacillin Sod/Tazobactam (Sod 3.375 gm/ Sodium Chloride) 50 mls @ 12.5 mls/hr IV Q8 [facility] Last Admin: 07/01/18 05:19 Dose: 12.5 mls/hr Vancomycin IV Pharmacy to Dose (1 ea/ Sodium Chloride) 500 mls @ 250 mls/hr IV X1 PRN; Protocol PRN Reason: Rx to Dose Vancomycin HCl 1,250 mg/ (Sodium Chloride) 275 mls @ 167 mls/hr IV Q12H [facility] Insulin Glargine (Lantus (Bkc)) 35 units SC BID [facility] Last Admin: 07/01/18 10:49 Dose: 35 units Insulin Human Lispro (Humalog Kwikpen (Bkc)) 0 unit SQ ACHS [facility]; Protocol Last Admin: 07/01/18 10:50 Dose: 2 u Magnesium [facility] ([facility]-Ox 400) [facility] Last Admin: 07/01/18 10:44 Dose: 400 mg Melatonin (Melatonin) 3 mg PO QHS PRN PRN PRN Reason: INSOMNIA Last Admin: 06/30/18 00:29 Dose: 3 mg Nutritional Formula (Lactose Free) (Glucerna Shake) 120 ml PO 4X/DAY [facility] Last Admin: 07/01/18 10:44 Dose: 120 ml Ondansetron HCl (Zofran) 4 mg IV Q8H PRN PRN PRN Reason: NAUSEA/VOMITING Sodium Chloride () 5 - 15 ml IV UD PRN PRN Reason: SALINE FLUSH Last Admin: 06/29/18 21:39 Dose: 10 ml Medical Necessity - Tobacco Use Smoking Status: Never smoker Tobacco Use: Cigarettes Assessment/Plan All Active Problems (Last Updated 06/04/17 @ 09:13 by Tabby Flores) Cellulitis of right lower extremity (Acute) DM type 2, uncontrolled, with renal complications (Acute) 1. right foot cellulitis and sesamoid osteomyelitis s/p Incision, drainage and debridement of all nonviable, infected soft tissue and bone right foot on 06/30 on Vanc and Zosyn ID consult for long-term recommendations. Cultures on 06/29 showed Klebsiella oxytoca, GPR, GPC. 06/30 showed GNR and GP organism. follow up cultures 2. DM2 uncontrolled continue lantus and SSI monitor for now Continue to reassure patient that the change of his diabetes medications did not could directly contributed to his a cellulitis and that is probably more coincidental that the cellulitis began during that transition. 3. VTE proph: LMWH 4. Disposition: awaiting on final culture results and determination of IV v PO abx on discharge. Patient does not want to go to a SNF and did well with physical therapy. Code Visit Inpatient E&M: 53324 Subs Hosp L2
--- NOTE | 2018-07-01 11:48 | PN_ITS ---
Patient Problems: Active and Suspected Problems (Last Updated 06/04/17 @ 09:13 by Tabby Flores) Cellulitis of right lower extremity (Acute) Subjective: Upset about being here, but understands why. Wants to go home upon discharge rather than a SNF (if necessary) Vitals/I&O's: Vital Signs Temp Pulse Resp BP Pulse Ox 36.8 C 57 L 16 152/67 H 95 07/01/18 09:43 07/01/18 09:43 07/01/18 09:43 07/01/18 09:43 07/01/18 09:43 Oxygen Delivery Method Room Air Weight: 103.2 kg Body Mass Index (BMI) 31.3 Intake and Output for Last 24 Hours 06/29/18 06/30/18 07/01/18 23:59 23:59 23:59 Intake Total 3340 / 3340 1155 / 1155 1500 / 1500 Output Total 776 / 776 400 / 400 Balance 2564 / 2564 755 / 755 1500 / 1500 General: Alert, No apparent distress HEENT: Atraumatic, Normocephalic Oral: Moist Mucosa, No Gingival or Mucosal Lesions/ Ulcerations Neck: No Nodes, Thyroid Normal Size and Texture Lungs: Clear to auscultation, Normal air movement, No rhonchi, No wheeze Cardiovascular: Regular rate, Regular Rhythm, Normal S1, Normal S2, No murmurs Abdomen: Bowel Sounds Present, Soft, Non Tender, Non-Distended Extremities: - - right foot and ankle bandaged--did not remove. Psych/Mental Status: Normal Affect, Appropriate Microbiology Past 72 Hours 06/30/18 07:45 Wound Abcess - Right Foot Gram Stain - Final 06/30/18 07:45 Wound Abcess - Right Foot Wound Culture - Preliminary Gram negative robbin Gram positive organism 06/29/18 16:40 Wound Abcess - Right Foot Gram Stain - Final 06/29/18 16:40 Wound Abcess - Right Foot Wound Culture - Preliminary Klebsiella oxytoca Gram positive robbin Gram Positive Cocci 06/28/18 22:00 Blood Culture (Wb) - Left Forearm Blood Culture - Preliminary No growth in 48 hours. 06/28/18 22:00 Blood Culture (Wb) - Anticubital Left Blood Culture - Preliminary No growth in 48 hours. Laboratory Results 06/30/18 09:35: POC Glucose 192 H 06/30/18 17:17: POC Glucose 239 H 06/30/18 20:55: POC Glucose 207 H 07/01/18 00:00: Vancomycin Trough 8.8 07/01/18 05:22: WBC 11.9 H, RBC 3.92 L, Hgb 11.6 L, Hct 34.4 L, MCV 87.8, MCH 29.6, MCHC 33.7, RDW 12.7, RDW Differential 40.9, Plt Count 243, MPV 9.4, Immature Gran % (Auto) 0.100, Neut % (Auto) 73.7 H, Lymph % (Auto) 17.2 L, [place] % (Auto) 7.6, Eos % (Auto) 0.8, Baso % (Auto) 0.6, Absolute Neuts (auto) 8.8 H, Absolute Lymphs (auto) 2.05, Total Counted Not Reportable 07/01/18 05:22: Sodium 140, Potassium 4.0, Chloride 110 H, Carbon Dioxide 24.0, Anion Gap 6, BUN 21 H, Creatinine 1.33 H, Estim Creat Clear Calc 49.54, Est GFR (MDRD) Af Amer 67, Est GFR (MDRD) Non-Af 55 L, BUN/Creatinine Ratio 15.8, Glucose 158 H, Calcium 8.3 L 07/01/18 06:49: POC Glucose 154 H 07/01/18 10:49: POC Glucose 172 H Current Medications Acetaminophen (Tylenol) 650 mg PO Q6H PRN PRN PRN Reason: Mild Pain (1-3)/Temp > 100.7 F Dextrose (D50w Syringe) 0 gm IV X1 PRN; Protocol PRN Reason: Hypoglycemia Enoxaparin Sodium (Lovenox) 40 mg SC DAILY@1000 [facility] Last Admin: 07/01/18 10:45 Dose: 40 mg Glucagon () 1 mg IM .X1 PRN PRN Reason: Hypoglycemia Piperacillin Sod/Tazobactam (Sod 3.375 gm/ Sodium Chloride) 50 mls @ 12.5 mls/hr IV Q8 [facility] Last Admin: 07/01/18 05:19 Dose: 12.5 mls/hr Vancomycin IV Pharmacy to Dose (1 ea/ Sodium Chloride) 500 mls @ 250 mls/hr IV X1 PRN; Protocol PRN Reason: Rx to Dose Vancomycin HCl 1,250 mg/ (Sodium Chloride) 275 mls @ 167 mls/hr IV Q12H [facility] Insulin Glargine (Lantus (Bk)) 35 units SC BID [facility] Last Admin: 07/01/18 10:49 Dose: 35 units Insulin Human Lispro (Humalog Kwikpen (Bk)) 0 unit SQ ACHS [facility]; Protocol Last Admin: 07/01/18 10:50 Dose: 2 u Magnesium Oxide (Mag-Ox 400) [facility] Last Admin: 07/01/18 10:44 Dose: 400 mg Melatonin (Melatonin) 3 mg PO QHS PRN PRN PRN Reason: INSOMNIA Last Admin: 06/30/18 00:29 Dose: 3 mg Nutritional Formula (Lactose Free) (Glucerna Shake) 120 ml PO 4X/DAY [facility] Last Admin: 07/01/18 10:44 Dose: 120 ml Ondansetron HCl (Zofran) 4 mg IV Q8H PRN PRN PRN Reason: NAUSEA/VOMITING Sodium Chloride () 5 - 15 ml IV UD PRN PRN Reason: SALINE FLUSH Last Admin: 06/29/18 21:39 Dose: 10 ml Medical Necessity - Tobacco Use Smoking Status: Never smoker Tobacco Use: Cigarettes Assessment/Plan All Active Problems (Last Updated 06/04/17 @ 09:13 by Tabby Flores) Cellulitis of right lower extremity (Acute) DM type 2, uncontrolled, with renal complications (Acute) 1. right foot cellulitis and sesamoid osteomyelitis * s/p Incision, drainage and debridement of all nonviable, infected soft tissue and bone right foot on 06/30 * on Vanc and Zosyn * ID consult for long-term recommendations. * Cultures on 06/29 showed Klebsiella oxytoca, GPR, GPC. 06/30 showed GNR and GP organism. * follow up cultures 2. DM2 uncontrolled * continue lantus and SSI * monitor for now * Continue to reassure patient that the change of his diabetes medications did not could directly contributed to his a cellulitis and that is probably more coincidental that the cellulitis began during that transition. 3. VTE proph: LMWH 4. Disposition: awaiting on final culture results and determination of IV v PO abx on discharge. Patient does not want to go to a SNF and did well with physical therapy. Code Visit Inpatient E&M: 44540 Subs Hosp L2
--- NOTE | 2018-07-01 14:50 | CASEMGMT ---
TIFFANY ARREOLA NOTE: Per Dr Mauricio, plan is for pt to go home on IV Atb's. He states is unsure of what antibiotic yet or frequency. Awaiting culture results. He states pt may be ready for discharge or Friday. TIFFANY ARREOLA to room to talk with pt. Discussed IV Atb's with pt and discharge planning. Pt states he does not want to go to a SNF. Pt states, I want to go home. Pt made aware that [facility] can come to the home to do teaching with him and other support persons on how to administer the IV atb's. Pt states he and his are teachable and agreeable to learning how to administer IV atb's. Pt states no preference of C agency or IV atb supply company. Referral made with Estela @ [facility] for long-term for IV Atb's. She was made aware of possible discharge or Friday. Asya SAHU RN, CM
--- NOTE | 2018-07-01 15:30 | PCM.HP.ID ---
Problem List (1) Osteomyelitis of foot, acute Status: Acute Reason for Consult: osteo Consulted by: Dr. Webber History of Present Illness: The patient is a 77 year old M with DM, presented with one week of R foot wound with worsening redness, associated fever. Denies any trauma to the area. Developed a blister at the site. Some confusion. Came to ED, started on vanc/zosyn. Taken to OR 06/30 for I&D. Feeling better, no further fever/shakes. No n/v/d. Full ROS performed and neg except as noted above. - Medical History Past Medical History (Chronic Problems): Chronic Problems (Last Updated 06/04/17 @ 09:13 by Tabby Flores) Hyperlipidemia associated with type 2 diabetes mellitus (Chronic) Managed by Dr. King. New chol agent being used. Chol now 164, LDL 75. Taking monthly injection. Essential hypertension with goal blood pressure less than 130/80 (Chronic) Hx of elevated BG in medical office. Monitors at home daily with findings of normal BP. No change in regimen. Uncontrolled type 2 diabetes mellitus, with long-term current use of insulin (Chronic) BG readings in range in am. When checked pre lunch BG remain well controlled. However before evening meal BG 200+ range. He is instructed on need to resume his lunch insulin. He currently runs high BG from after lunch until he corrects at bedtime, resulting in 10 hours daily of high BG. I reminded him this is the same conversation we had at last visit. He agrees to take insulin as directed. Follows with Dr. Serna for nephrology. Follows with cardiology as well. A1c now 8.6 Allergies/Adverse Reactions: Allergies Iodinated Contrast- Oral and IV Dye [CONTRASTS] Allergy (Verified 06/28/18 21:03) Rash amlodipine [From Norvasc] Adverse Reaction (Unknown, Verified 06/28/18 21:03) Unknown atorvastatin [From Lipitor] Adverse Reaction (Unknown, Verified 06/28/18 21:03) Unknown cerivastatin [From Baycol] Adverse Reaction (Unknown, Verified 06/28/18 21:03) Unknown enalapril Adverse Reaction (Unknown, Verified 06/28/18 21:03) Unknown exenatide [From Byetta] Adverse Reaction (Unknown, Verified 06/28/18 21:03) Unknown ezetimibe [From Zetia] Adverse Reaction (Unknown, Verified 06/28/18 21:03) Unknown fenofibrate [From Tricor] Adverse Reaction (Unknown, Verified 06/28/18 21:03) Unknown gemfibrozil Adverse Reaction (Unknown, Verified 06/28/18 21:03) Unknown glipizide [From Glucotrol] Adverse Reaction (Unknown, Verified 06/28/18 21:03) Unknown labetalol Adverse Reaction (Unknown, Verified 06/28/18 21:03) Unknown lovastatin [From Mevacor] Adverse Reaction (Unknown, Verified 06/28/18 21:03) Unknown metformin [From Glucophage] Adverse Reaction (Unknown, Verified 06/28/18 21:03) Unknown niacin [From Niaspan Extended-Release] Adverse Reaction (Unknown, Verified 06/28/18 21:03) Unknown nifedipine [From Adalat] Adverse Reaction (Unknown, Verified 06/28/18 21:03) Unknown quinapril [From Accupril] Adverse Reaction (Unknown, Verified 06/28/18 21:03) Unknown repaglinide [From Prandin] Adverse Reaction (Unknown, Verified 06/28/18 21:03) Unknown rosuvastatin [From Crestor] Adverse Reaction (Unknown, Verified 06/28/18 21:03) Unknown simvastatin [From Zocor] Adverse Reaction (Unknown, Verified 06/28/18 21:03) Unknown glyburide Adverse Reaction (Verified 06/28/18 21:03) Unknown glyburide Adverse Reaction (Unknown, Uncoded 06/28/18 21:03) Unknown nifedipine Adverse Reaction (Unknown, Uncoded 06/28/18 21:03) Unknown Home Medications: Ambulatory Orders Medication Instructions Recorded amiloride 5 mg tablet 5 mg PO BID tab 05/29/17 aspirin 81 mg tablet,delayed 81 mg PO DAILY 05/29/17 release insulin aspart U- 100 100 unit/mL See Rx Instructions SC QDAY 05/29/17 subcutaneous solution insulin glargine (U- 100) 100 30 unit SC BID ml 05/29/17 unit/mL subcutaneous solution losartan 50 mg tablet 50 mg PO QDAY 05/29/17 canagliflozin 100 mg tablet 100 mg PO QAM 06/04/17 coenzyme Q10 100 mg capsule 100 mg PO QDAY 06/04/17 magnesium oxide 500 mg capsule 500 mg PO BID cap 06/04/17 multivitamin tablet 1 tab PO QDAY 06/04/17 clopidogrel 75 mg tablet 75 mg PO QDAY tab 09/16/17 doxazosin 4 mg tablet 2 mg PO BID tab 09/16/17 krill oil 500 mg capsule 1,000 mg PO BID cap 09/16/17 metoprolol succinate ER 50 mg 25 mg PO QDAY tab 09/16/17 tablet,extended release 24 hr Alirocumab [Praluent Pen] 75 mg SQ [id number] 06/29/18 - Social History Tobacco Use: non-smoker Vital Signs Temp Pulse Resp BP Pulse Ox 98.2 F 57 L 16 152/67 H 95 07/01/18 09:43 07/01/18 09:43 07/01/18 09:43 07/01/18 09:43 07/01/18 09:43 Oxygen Delivery Method Room Air Weight: 103.2 kg Body Mass Index (BMI) 31.3 Microbiology Past 72 Hours 06/30/18 07:45 Gram Stain - Final Wound Abcess - Right Foot Wound Culture - Preliminary Gram negative robbin Gram positive organism 06/29/18 16:40 Gram Stain - Final Wound Abcess - Right Foot Wound Culture - Preliminary Klebsiella oxytoca Gram positive robbin Gram Positive Cocci 06/28/18 22:00 Blood Culture - Preliminary Blood Culture (Wb) - Left Forearm No growth in 48 hours. 06/28/18 22:00 Blood Culture - Preliminary Blood Culture (Wb) - Anticubital Left No growth in 48 hours. Laboratory Tests Past 24 Hrs 07/01/18 07/01/18 07/01/18 00:00 05:22 05:22 WBC 11.9 H RBC 3.92 L Hgb 11.6 L Hct 34.4 L MCV 87.8 MCH 29.6 MCHC 33.7 RDW 12.7 RDW Differential 40.9 Plt Count 243 MPV 9.4 Immature Gran % (Auto) 0.100 Neut % (Auto) 73.7 H Lymph % (Auto) 17.2 L [place] % (Auto) 7.6 Eos % (Auto) 0.8 Baso % (Auto) 0.6 Absolute Neuts (auto) 8.8 H Absolute Lymphs (auto) 2.05 Total Counted Not Reportable Sodium 140 Potassium 4.0 Chloride 110 H Carbon Dioxide 24.0 Anion Gap 6 BUN 21 H Creatinine 1.33 H Estim Creat Clear Calc 49.54 Est GFR (MDRD) Af Amer 67 Est GFR (MDRD) Non-Af 55 L BUN/Creatinine Ratio 15.8 Glucose 158 H Calcium 8.3 L Vancomycin Trough 8.8 - Other Studies Radiology: [] reviewed Other Studies: [] Route of nutrition/ use of supplements: [] Nutritional Intake: [] IV Site: [] Garvey Catheter: [] - Physical Exam General: Alert, Oriented x3, Cooperative, No apparent distress HEENT: Atraumatic, PERRLA, EOMI Neck: Supple, No Nodes Lungs: Clear to auscultation, Normal air movement Cardiovascular: Regular rate, Regular Rhythm, No murmurs Abdomen: Soft, Non Tender, Non-Distended, Hernia Extremities: No edema Skin: Ulcer/ Wound - foot wrapped IV Site: Peripheral, without redness Musculoskeletal: No Tenderness to Palpation of Joints or Extremities Neurological: Cranial nerves II-XII grossly intact - Assessment/Plan Antibiotics: [] Assessment/Plan: [] Active and Suspected Problems (Last Updated 06/04/17 @ 09:13 by Tabby Flores) Cellulitis of right lower extremity (Acute) R foot osteo with IDDM - on vanc/zosyn. Wound cx with klebs, GPR, GPC. Taken to OR 06/[address] Oliver for I&D, surg cx with GNR and GPC. MRSA pcr was neg. Cr improving. Tentative plan is for 6 weeks of home iv abx, will follow cx results. Will follow, thank you, d/w child support case officer and nursing.
[2018-07-01 15:43] VITALS: BP 149/61; PULSE 62; RESP 16; TEMP 36.8; O2SAT 96
--- NOTE | 2018-07-01 15:49 | NURSING ---
wound photo: right foot (plantar view)
--- NOTE | 2018-07-01 15:51 | NURSING ---
wound photo: right foot (dorsal view)
[2018-07-01 17:20] LABS: Bedside Glucose 211 mg/dL (70-110)
[2018-07-01 20:50] VITALS: BP 146/72; PULSE 55; RESP 20; TEMP 37.5; O2SAT 96
[2018-07-01 23:21] LABS: Bedside Glucose 162 mg/dL (70-110)
[2018-07-02 00:10] VITALS: BP 146/71; PULSE 68; RESP 20; TEMP 37.2; O2SAT 95
[2018-07-02] MEDS: Acetaminophen 325 MG Tablet 650 MG PO (01:50)
[2018-07-02 02:04] VITALS: BP 148/76; PULSE 60; RESP 18; TEMP 37.3; O2SAT 95
[2018-07-02 06:08] LABS: Absolute Lymphocyte Count 2.09 X10^3/ul (0.83-4.51); Absolute Neutrophil Count 6.8 X10^3/uL (2.0-7.7); Basophil# 0.07 X10^3/uL; Basophil% 0.7 % (0-1); Eosinophil# 0.18 X10^3/uL; Eosinophils% 1.8 % (0-5); Hematocrit 33.8 % (40-54); Hemoglobin 11.2 g/dl (13.0-16.5); Lymphocyte # 2.09 X10^3/ul (4.0); Lymphocyte % 20.8 % (19-41); Mean Corp Hgb Conc 33.1 g/gl (32-36); Mean Corpuscular Hgb 28.7 pg (27.0-32.0); Mean Corpuscular Volume 86.7 fL (80-94); Mean Platelet Vol. 8.8 fl (6.2-12.0); Monocyte# 0.93 X10^3/uL; Monocyte% 9.3 % (0-10); Neutrophil # 6.76 X10^3/uL (2.7-7.7); Neutrophil % 67.2 % (47-70); Platelet Count 274 K/mm3 (150-450); RBC Distribution Width CV 12.6 % (11.6-14.6); RBC Distribution Width SD 40.3 fl (35.1-43.9); White Blood Count 10.1 K/mm3 (4.4-11.0)
[2018-07-02 06:14] LABS: POSITIVE COUNT NO; POSITIVE DIFFERENTIAL NO; POSITIVE MORPHOLOGY NO
[2018-07-02 06:15] LABS: Anion Gap 6 (5-15); BUN 18 mg/dL (7-18); BUN/Creat Ratio 15.3 RATIO (10-20); Calcium,Total 8.4 mg/dL (8.5-10.1); Chloride 109 mmol/L (98-107); Creatinine, Serum 1.18 mg/dL (0.70-1.30); EST Glomerular Filtration Rate 64 mL/min (>60); Est Glom Filt Rate - Afr Amer 77 mL/min (>60); Estimated Creatinine Clearance 55.84 ml/min; Glucose 102 mg/dL (74-106); Potassium 3.6 mmol/L (3.5-5.1); Sodium Level 143 mmol/L (136-145)
[2018-07-02 07:00] LABS: Bedside Glucose 140 mg/dL (70-110)
[2018-07-02 07:11] LABS: Bedside Glucose 98 mg/dL (70-110)
--- NOTE | 2018-07-02 07:33 | PCM.PROGNOTE ---
Patient Problems: Active and Suspected Problems (Last Updated 06/04/17 @ 09:13 by Tabby Flores) Cellulitis of right lower extremity (Acute) Osteomyelitis of foot, acute (Acute) Subjective: Patient was seen this morning for follow up on right foot I+D with wide debridement, he relates to minimal to no pain to the foot. He is resting comfortably in bed, no complaints of fever, chills, nausea or vomiting. He relates he does not want to go to retirement if he does not have to, but states he understands why he would need to go there. - Physical Exam General: Alert, Oriented x3, Cooperative, No apparent distress Extremities: Capillary Refill Less than 3 Seconds, No Calf Tenderness, - - Right foot: s/p I+D and wide debridement of 1st and 2nd rays, overall tissues viable, there is some ecchymosis to skin/tissues around part of the margins which is in process of demarcating, there is no purulence or maloder today, down to deep subcutaneous tissue, tendon and joint capsule; cellulitis much improved, no visible abscess, no new areas of necrosis, CFT < 2 seconds to all toes with vascular status intact to right foot. Skin: No breakdown - No open lesions or areas of breakdown to the left foot or ankle. Musculoskeletal: No Tenderness to Palpation of Joints or Extremities - to the foot or ankle, right. Vital Signs Temp Pulse Resp BP Pulse Ox 99.1 F 60 18 148/76 H 95 07/02/18 02:04 07/02/18 02:04 07/02/18 02:04 07/02/18 02:04 07/02/18 02:04 Oxygen Delivery Method Room Air Weight: 103.2 kg Body Mass Index (BMI) 31.3 Intake and Output for Last 24 Hours 06/30/18 07/01/18 07/02/18 23:59 23:59 23:59 Intake Total 1155 / 1155 1500 / 1500 1425 / 1425 Output Total 400 / 400 Balance 755 / 755 1500 / 1500 1425 / 1425 Microbiology Past 72 Hours 06/30/18 07:45 Gram Stain - Final Wound Abcess - Right Foot Wound Culture - Preliminary Gram negative robbin Gram positive organism 06/29/18 16:40 Gram Stain - Final Wound Abcess - Right Foot Wound Culture - Preliminary Klebsiella oxytoca Gram positive robbin Gram Positive Cocci 06/28/18 22:00 Blood Culture - Preliminary Blood Culture (Wb) - Left Forearm No growth in 48 hours. 06/28/18 22:00 Blood Culture - Preliminary Blood Culture (Wb) - Anticubital Left No growth in 48 hours. Laboratory Tests Past 24 Hrs 07/02/18 07/02/18 05:30 05:30 WBC 10.1 RBC 3.90 L Hgb 11.2 L Hct 33.8 L MCV 86.7 MCH 28.7 MCHC 33.1 RDW 12.6 RDW Differential 40.3 Plt Count 274 MPV 8.8 Immature Gran % (Auto) 0.200 Neut % (Auto) 67.2 Lymph % (Auto) 20.8 [place] % (Auto) 9.3 Eos % (Auto) 1.8 Baso % (Auto) 0.7 Absolute Neuts (auto) 6.8 Absolute Lymphs (auto) 2.09 Total Counted Not Reportable Sodium 143 Potassium 3.6 Chloride 109 H Carbon Dioxide 28.0 Anion Gap 6 BUN 18 Creatinine 1.18 Estim Creat Clear Calc 55.84 Est GFR (MDRD) Af Amer 77 Est GFR (MDRD) Non-Af 64 BUN/Creatinine Ratio 15.3 Glucose 102 Calcium 8.4 L POC Glucose 07/02/18 07/02/18 07/01/18 06:49 01:59 23:05 POC Glucose 98 140 H 162 H 07/01/18 07/01/18 16:40 10:49 POC Glucose 211 H 172 H Medical Necessity - Tobacco Use Smoking Status: Never smoker Tobacco Use: Cigarettes Assessment/Plan All Active Problems (Last Updated 06/04/17 @ 09:13 by Tabby Flores) Cellulitis of right lower extremity (Acute) Osteomyelitis of foot, acute (Acute) DM type 2, uncontrolled, with renal complications (Acute) Cellulitis, abscess right forefoot s/p I+D debridement on 06/30/18 Sesamoid osteomyelitis right forefoot s/p excision on 06/30/18 Diabetes with peripheral neuropathy Peripheral Vascular Disease Clinically right foot infection with significant continued improvement, patient afebrile and resolved leukocytosis. No purulence or maloder today. Continue with wet to dry dressing changes: normal saline solution, gauze, kerlix and aniya dressing which was applied this morning. Change BID. We will continue to proceed with wound care at this time, and allow for healing as well as demarcation, pending healing and demarcation patient understands he may require possible future surgery - possible amputation. Continue with IV antibiotic therapy per Infectious Disease. Again recommend patient go to SNF nursing rehab facility. Diabetes, and other medical management per hospitalist team. Will continue to follow.
[2018-07-02] MEDS: Magnesium Oxide 400 MG Tablet PO ×2 (08:00→16:21)
[2018-07-02 08:05] VITALS: BP 141/64; PULSE 74; RESP 18; TEMP 36.7; O2SAT 98
[2018-07-02 09:20] VITALS: PULSE 62
--- NOTE | 2018-07-02 09:30 | CASEMGMT ---
Addendum entered by Marianne Baum 07/02/18 11:12: TIFFANY ARREOLA followed up with patient and states he would like to go to SNF at discharge. Review locations of SNF with patient and first choice is [facility], second is [facility]. TIFFANY ARREOLA updated [facility]. TIFFANY ARREOLA will continue to follow referral at [facility] for potential cost for when patient transitions to home. Original Note: TIFFANY ARREOLA in to discuss discharge plans with patient. Patient will need IV ATBs at discharge discuss potential cost and care. Patient wants to review all options available. TIFFANY ARREOLA provided patient with list of SNF and will also send referral to [facility] for potential cost for IV ATBs at home. TIFFANY ARREOLA to follow-up with patient.
[2018-07-02] MEDS: Enoxaparin 40 MG/0.4 ML Syringe SC (10:11)
[2018-07-02] MEDS: Linezolid 600 MG Tablet PO (10:11)
--- NOTE | 2018-07-02 10:13 | PN.ID_ITS ---
Patient Problems: Active and Suspected Problems (Last Updated 06/04/17 @ 09:13 by Tabby Flores) Cellulitis of right lower extremity (Acute) Osteomyelitis of foot, acute (Acute) Subjective: Feeling ok, pain controlled, no fever - Physical Exam General: Alert, Cooperative, No apparent distress Lungs: Clear to auscultation, Normal air movement Cardiovascular: Regular rate, Regular Rhythm Abdomen: Soft, Non Tender, Non-Distended Skin: Ulcer/ Wound - R foot wrapped Vital Signs Temp Pulse Resp BP Pulse Ox 98.0 F 62 18 141/64 H 98 07/02/18 08:05 07/02/18 09:20 07/02/18 08:05 07/02/18 08:05 07/02/18 08:05 Oxygen Delivery Method Room Air Weight: 103.2 kg Body Mass Index (BMI) 31.3 Intake and Output for Last 24 Hours 06/30/18 07/01/18 07/02/18 23:59 23:59 23:59 Intake Total 1155 / 1155 1500 / 1500 1425 / 1425 Output Total 400 / 400 Balance 755 / 755 1500 / 1500 1425 / 1425 Microbiology Past 72 Hours 06/30/18 07:45 Gram Stain - Final Wound Abcess - Right Foot Wound Culture - Preliminary Klebsiella oxytoca Gram positive organism Anaerobic Culture - Preliminary Checking for anaerobes, further studies to follow. 06/29/18 16:40 Gram Stain - Final Wound Abcess - Right Foot Wound Culture - Preliminary Klebsiella oxytoca Corynebacterium jeikeium Gram Positive Cocci Anaerobic Culture - Preliminary Checking for anaerobes, further studies to follow. 06/28/18 22:00 Blood Culture - Preliminary Blood Culture (Wb) - Left Forearm No growth in 48 hours. 06/28/18 22:00 Blood Culture - Preliminary Blood Culture (Wb) - Anticubital Left No growth in 48 hours. Laboratory Tests Past 24 Hrs 07/02/18 07/02/18 05:30 05:30 WBC 10.1 RBC 3.90 L Hgb 11.2 L Hct 33.8 L MCV 86.7 MCH 28.7 MCHC 33.1 RDW 12.6 RDW Differential 40.3 Plt Count 274 MPV 8.8 Immature Gran % (Auto) 0.200 Neut % (Auto) 67.2 Lymph % (Auto) 20.8 [place] % (Auto) 9.3 Eos % (Auto) 1.8 Baso % (Auto) 0.7 Absolute Neuts (auto) 6.8 Absolute Lymphs (auto) 2.09 Total Counted Not Reportable Sodium 143 Potassium 3.6 Chloride 109 H Carbon Dioxide 28.0 Anion Gap 6 BUN 18 Creatinine 1.18 Estim Creat Clear Calc 55.84 Est GFR (MDRD) Af Amer 77 Est GFR (MDRD) Non-Af 64 BUN/Creatinine Ratio 15.3 Glucose 102 Calcium 8.4 L POC Glucose 07/02/18 07/02/18 07/01/18 06:49 01:59 23:05 POC Glucose 98 140 H 162 H 07/01/18 07/01/18 16:40 10:49 POC Glucose 211 H 172 H Medical Necessity - Tobacco Use Smoking Status: Never smoker Tobacco Use: Cigarettes Route of nutrition/ use of supplements: [] Nutritional Intake: [] IV Site: [] Garvey Catheter: [] - Assessment/Plan Antibiotics: [] Assessment/Plan: [] Active and Suspected Problems (Last Updated 06/04/17 @ 09:13 by Tabby Flores) Cellulitis of right lower extremity (Acute) R foot osteo with IDDM - on vanc/zosyn. Wound cx with klebs, corynebacterium, GPC. Taken to OR 06/[address] Oliver for I&D, surg cx with klebs and GPC. MRSA pcr was neg. Cr improving. Wrote rx for 6 weeks of iv ceftriaxone and po linezolid, stop date 08/11/18, weekly bmp, cbc, and esr. Ordered picc. Will follow, d/w correctional casework specialist
--- NOTE | 2018-07-02 11:22 | PCM.TXEXTCAR ---
- Diet 06/30/18 07:58 Diet: Carbohydrate Controlled Is pt able to select menu?: Yes - Routine Orders/Code Status Routine Lab Work: CBC, BMP - Wound(s) right foot Wound Type: Open Surgical Wound Dressing Change: Wet to Dry Dressing - Therapies Weight Bearing: Non weight bearing Extremity Affected:: Right Lower Physical Therapy: Eval and Treat Occupational Therapy: Eval and Treat - Allergies/Procedures Done in Hospital Allergies/Adverse Reactions: Allergies Iodinated Contrast- Oral and IV Dye [CONTRASTS] Allergy (Verified 06/28/18 21:03) Rash amlodipine [From Norvasc] Adverse Reaction (Unknown, Verified 06/28/18 21:03) Unknown atorvastatin [From Lipitor] Adverse Reaction (Unknown, Verified 06/28/18 21:03) Unknown cerivastatin [From Baycol] Adverse Reaction (Unknown, Verified 06/28/18 21:03) Unknown enalapril Adverse Reaction (Unknown, Verified 06/28/18 21:03) Unknown exenatide [From Byetta] Adverse Reaction (Unknown, Verified 06/28/18 21:03) Unknown ezetimibe [From Zetia] Adverse Reaction (Unknown, Verified 06/28/18 21:03) Unknown fenofibrate [From Tricor] Adverse Reaction (Unknown, Verified 06/28/18 21:03) Unknown gemfibrozil Adverse Reaction (Unknown, Verified 06/28/18 21:03) Unknown glipizide [From Glucotrol] Adverse Reaction (Unknown, Verified 06/28/18 21:03) Unknown labetalol Adverse Reaction (Unknown, Verified 06/28/18 21:03) Unknown lovastatin [From Mevacor] Adverse Reaction (Unknown, Verified 06/28/18 21:03) Unknown metformin [From Glucophage] Adverse Reaction (Unknown, Verified 06/28/18 21:03) Unknown niacin [From Niaspan Extended-Release] Adverse Reaction (Unknown, Verified 06/28/18 21:03) Unknown nifedipine [From Adalat] Adverse Reaction (Unknown, Verified 06/28/18 21:03) Unknown quinapril [From Accupril] Adverse Reaction (Unknown, Verified 06/28/18 21:03) Unknown repaglinide [From Prandin] Adverse Reaction (Unknown, Verified 06/28/18 21:03) Unknown rosuvastatin [From Crestor] Adverse Reaction (Unknown, Verified 06/28/18 21:03) Unknown simvastatin [From Zocor] Adverse Reaction (Unknown, Verified 06/28/18 21:03) Unknown glyburide Adverse Reaction (Verified 06/28/18 21:03) Unknown glyburide Adverse Reaction (Unknown, Uncoded 06/28/18 21:03) Unknown nifedipine Adverse Reaction (Unknown, Uncoded 06/28/18 21:03) Unknown Procedures: - - Incision, drainage and debridment of all nonviable, infected soft tissue and bone right foot - Type of Care/Length of Stay Estimated LOS: Convalescent Care Less Than 30 days Type of Care Needed: Skilled Rehab Potential: Fair Prognosis: Good - Additional Orders/Day of Discharge Day of Discharge: 07/02/18 - Dietary and Speech Recommendations Dietitian Recommendations/Changes: Rec diet change to 1800 shantell Cardiac d/t pmhx. Will continue glucerna shake at [facility] to help w/ surgical wound healing. - Follow Up Care Primary Care Physician: Nawaf Villaseñor MD [Primary Care Provider] - Within 2 Weeks Please Follow Up With: Keenan Oliver DPM When: 1 week
[2018-07-02] MEDS: Insulin Lispro 100 UNIT/ML INSULN.PEN SQ ×2 (11:25→16:21)
--- NOTE | 2018-07-02 11:26 | PCM.DC.SUM ---
Discharge Date and Diagnosis - Problem List Patient Problems: Active and Suspected Problems (Last Updated 06/04/17 @ 09:13 by Tabby Flores) Cellulitis of right lower extremity (Acute) Osteomyelitis of foot, acute (Acute) Date of Admission: 06/29/18 Date of Discharge: 07/02/18 - Primary Discharge Diagnosis Active and Suspected Problems (Last Updated 06/04/17 @ 09:13 by Tabby Flores) Cellulitis of right lower extremity (Acute) Osteomyelitis of foot, acute (Acute) 1. right foot cellulitis and sesamoid osteomyelitis s/p Incision, drainage and debridement of all nonviable, infected soft tissue and bone right foot on 06/30 Cultures on 06/29 showed Klebsiella oxytoca, GPR, GPC. 06/30 showed GNR and GP organism. patient to be on Zyvox and ceftriaxone for 6 weeks. PICC 2. DM2 uncontrolled continue lantus and SSI fair control monitor for now Continue to reassure patient that the change of his diabetes medications did not could directly contributed to his a cellulitis and that is probably more coincidental that the cellulitis began during that transition. - Secondary Discharge Diagnosis Chronic Problems (Last Updated 06/04/17 @ 09:13 by Tabby Flores) Hyperlipidemia associated with type 2 diabetes mellitus (Chronic) Managed by Dr. King. New chol agent being used. Chol now 164, LDL 75. Taking monthly injection. Essential hypertension with goal blood pressure less than 130/80 (Chronic) Hx of elevated BG in medical office. Monitors at home daily with findings of normal BP. No change in regimen. Uncontrolled type 2 diabetes mellitus, with long-term current use of insulin (Chronic) BG readings in range in am. When checked pre lunch BG remain well controlled. However before evening meal BG 200+ range. He is instructed on need to resume his lunch insulin. He currently runs high BG from after lunch until he corrects at bedtime, resulting in 10 hours daily of high BG. I reminded him this is the same conversation we had at last visit. He agrees to take insulin as directed. Follows with Dr. Serna for nephrology. Follows with cardiology as well. A1c now 8.6 Hospital Course and Treatment Imaging Results: Clinical Impression(s) from Imaging Studies Chest X-Ray 06/28/18 22:17 IMPRESSION: Elevated right hemidiaphragm. Prominent calcified plaques of both hemidiaphragms. Probable calcified plaque causing a density in the right upper lobe with CT of the chest is recommended. Electronically Signed: Sherman Strong MD at 23:38 EDT , Service support , Foot X-Ray 06/28/18 22:18 IMPRESSION: No acute fracture, dislocation, or definite destructive process of the bones. Electronically Signed: Sherman Strong MD at 23:36 EDT , Service support , Lower Extremity MRI 06/29/18 16:14 IMPRESSION: Soft tissue swelling with focal ulcer and air in the soft tissues. There is bipartite medial sesamoid with edema consistent with sesamoiditis versus osteomyelitis. Arthritic change at the first MTP joint. Electronically Signed: Phan Rooney MD at 20:22 EDT , Service support , Foot X-Ray 06/30/18 09:00 IMPRESSION: See above. Electronically Signed: Pat Araya at 11:25 EDT Tel , Service support , Consultations 07/01/18 07:19 Consult: Onc/Wound/site technician Routine Comment: Reason for Consult:: s/p I+D and debridment diabetic foot infection right foot Comments:: wound care: dressing last changed 07/01/18 7am Harman Mauricio MD: infectious disease [place], EDVINM: podiatry. Operations: - - Incision, drainage and debridment of all nonviable, infected soft tissue and bone right foot Procedures: None Summary of Care Provided: The patient is a 77 year old M José Luis with right foot cellulitis. Patient had cellulitis on the dorsum of his right foot but also a blister between his first and second toe on the filled with blood. Patient also did have a callus that was on the plantar aspect but also medially on the right foot. Patient did endorse that he did try cutting off the callus with a pen knife. Patient was started on antibiotics and seen by podiatry. MRI was ordered and showed what appeared to be possible osteomyelitis of the sesamoid bones. Patient underwent I&D and debridement on the . Patient was seen in consultation by Dr. Mauricio of infectious disease. Culture grew out gram-positive organism as well as Klebsiella oxytoca. Infectious disease recommends 6 weeks of IV ceftriaxone plus oral Zyvox. Patient was preferring to go home but given his limited weightbearing status and IV antibiotics he is electing go to a senior living facility at this time. [] Patient Problems: Active and Suspected Problems (Last Updated 06/04/17 @ 09:13 by Tabby Flores) Cellulitis of right lower extremity (Acute) Osteomyelitis of foot, acute (Acute) - Physical Exam General: Alert, No apparent distress HEENT: Atraumatic, Normocephalic Extremities: - - right foot and ankle wrapped--did not remove. Vital Signs Temp Pulse Resp BP Pulse Ox 36.7 C 62 18 141/64 H 98 07/02/18 08:05 07/02/18 09:20 07/02/18 08:05 07/02/18 08:05 07/02/18 08:05 Oxygen Delivery Method Room Air Weight: 103.2 kg Body Mass Index (BMI) 31.3 Intake and Output for Last 24 Hours 06/30/18 07/01/18 07/02/18 23:59 23:59 23:59 Intake Total 1155 / 1155 1500 / 1500 1425 / 1425 Output Total 400 / 400 Balance 755 / 755 1500 / 1500 1425 / 1425 Microbiology Past 72 Hours 06/30/18 07:45 Gram Stain - Final Wound Abcess - Right Foot Wound Culture - Preliminary Klebsiella oxytoca Gram positive organism Anaerobic Culture - Preliminary Checking for anaerobes, further studies to follow. 06/29/18 16:40 Gram Stain - Final Wound Abcess - Right Foot Wound Culture - Preliminary Klebsiella oxytoca Corynebacterium jeikeium Gram Positive Cocci Anaerobic Culture - Preliminary Checking for anaerobes, further studies to follow. 06/28/18 22:00 Blood Culture - Preliminary Blood Culture (Wb) - Left Forearm No growth in 48 hours. 06/28/18 22:00 Blood Culture - Preliminary Blood Culture (Wb) - Anticubital Left No growth in 48 hours. Laboratory Tests Past 24 Hrs 07/02/18 07/02/18 05:30 05:30 WBC 10.1 RBC 3.90 L Hgb 11.2 L Hct 33.8 L MCV 86.7 MCH 28.7 MCHC 33.1 RDW 12.6 RDW Differential 40.3 Plt Count 274 MPV 8.8 Immature Gran % (Auto) 0.200 Neut % (Auto) 67.2 Lymph % (Auto) 20.8 [place] % (Auto) 9.3 Eos % (Auto) 1.8 Baso % (Auto) 0.7 Absolute Neuts (auto) 6.8 Absolute Lymphs (auto) 2.09 Total Counted Not Reportable Sodium 143 Potassium 3.6 Chloride 109 H Carbon Dioxide 28.0 Anion Gap 6 BUN 18 Creatinine 1.18 Estim Creat Clear Calc 55.84 Est GFR (MDRD) Af Amer 77 Est GFR (MDRD) Non-Af 64 BUN/Creatinine Ratio 15.3 Glucose 102 Calcium 8.4 L POC Glucose 07/02/18 07/02/18 07/01/18 06:49 01:59 23:05 POC Glucose 98 140 H 162 H 07/01/18 16:40 POC Glucose 211 H Discharge Diet: 1800 Calorie Control Diet Call your doctor if your incision/area has: Continuous Slow Oozing, Sudden Increased Bleeding, Increased Pain/ Swelling, Increased Redness Call your doctor if you observe: Fever of 101 or Higher Home Medications: Medications to take at Discharge amiloride 5 mg tablet 5 mg PO BID tab 05/29/17 aspirin 81 mg tablet,delayed release 81 mg PO DAILY 05/29/17 losartan 50 mg tablet 50 mg PO QDAY 05/29/17 coenzyme Q10 100 mg capsule 100 mg PO QDAY 06/04/17 magnesium oxide 500 mg capsule 500 mg PO BID cap 06/04/17 multivitamin tablet 1 tab PO QDAY 06/04/17 clopidogrel 75 mg tablet 75 mg PO QDAY tab 09/16/17 doxazosin 4 mg tablet 2 mg PO BID tab 09/16/17 metoprolol succinate ER 50 mg tablet,extended release 24 hr 25 mg PO QDAY tab 09/16/17 Alirocumab [Praluent Pen] 75 mg SQ [id number] 06/29/18 Acetaminophen [Tylenol Tablet] 650 mg PO Q6H PRN PRN tablet 07/02/18 Ceftriaxone 2 gm IV Q24 40 Days #40 vial 07/02/18 Enoxaparin [Lovenox] 40 mg SC DAILY@1000 syringe 07/02/18 Glucerna Shake 120 ml PO 4X/DAY liquid 07/02/18 Insulin Glargine [Lantus SoloStar Pen] 35 units SC BID pen 07/02/18 Insulin Lispro [Humalog KwikPen] See Protocol SQ ACHS insuln.pen 07/02/18 Linezolid 600 mg PO BID 40 Days #80 tab 07/02/18 Following Prescrptions Were Given to Patient: Ceftriaxone 2 gm IV Q24 40 Days #40 vial Linezolid 600 mg PO BID 40 Days #80 tab Primary Care Physician: Nawaf Villaseñor MD [Primary Care Provider] - Within 2 Weeks Please Follow Up With: Keenan Oliver DPM When: 1 week Disposition: [facility] facility Minutes spent on discharge:: 35 Patient Condition:: Good Medical Necessity - Tobacco Use Smoking Status: Never smoker Tobacco Use: Cigarettes Meaningful Use Info Meaningful Use Diagnoses (Choose all that apply): None applicable Code Visit Inpatient E&M: 25755 Disch Hosp
[2018-07-02 11:31] LABS: Bedside Glucose 165 mg/dL (70-110)
--- NOTE | 2018-07-02 11:31 | DS.PCM_ITS ---
Discharge Date and Diagnosis - Problem List Patient Problems: Active and Suspected Problems (Last Updated 06/04/17 @ 09:13 by Tabby Flores) Cellulitis of right lower extremity (Acute) Osteomyelitis of foot, acute (Acute) Date of Admission: 06/29/18 Date of Discharge: 07/02/18 - Primary Discharge Diagnosis Active and Suspected Problems (Last Updated 06/04/17 @ 09:13 by Tabby Flores) Cellulitis of right lower extremity (Acute) Osteomyelitis of foot, acute (Acute) 1. right foot cellulitis and sesamoid osteomyelitis * s/p Incision, drainage and debridement of all nonviable, infected soft tissue and bone right foot on 06/30 * Cultures on 06/29 showed Klebsiella oxytoca, GPR, GPC. 06/30 showed GNR and GP organism. * patient to be on Zyvox and ceftriaxone for 6 weeks. * PICC 2. DM2 uncontrolled * continue lantus and SSI * fair control * monitor for now * Continue to reassure patient that the change of his diabetes medications did not could directly contributed to his a cellulitis and that is probably more coincidental that the cellulitis began during that transition. - Secondary Discharge Diagnosis Chronic Problems (Last Updated 06/04/17 @ 09:13 by Tabby Flores) Hyperlipidemia associated with type 2 diabetes mellitus (Chronic) Managed by Dr. King. New chol agent being used. Chol now 164, LDL 75. Taking monthly injection. Essential hypertension with goal blood pressure less than 130/80 (Chronic) Hx of elevated BG in medical office. Monitors at home daily with findings of normal BP. No change in regimen. Uncontrolled type 2 diabetes mellitus, with long-term current use of insulin (Chronic) BG readings in range in am. When checked pre lunch BG remain well controlled. However before evening meal BG 200+ range. He is instructed on need to resume his lunch insulin. He currently runs high BG from after lunch until he corrects at bedtime, resulting in 10 hours daily of high BG. I reminded him this is the same conversation we had at last visit. He agrees to take insulin as directed. Follows with Dr. Serna for nephrology. Follows with cardiology as well. A1c now 8.6 Hospital Course and Treatment Imaging Results: Clinical Impression(s) from Imaging Studies Chest X-Ray 06/28/18 22:17 IMPRESSION: Elevated right hemidiaphragm. Prominent calcified plaques of both hemidiaphragms. Probable calcified plaque causing a density in the right upper lobe with CT of the chest is recommended. Electronically Signed: Sherman Strong MD at 23:38 EDT , Service support , Foot X-Ray 06/28/18 22:18 IMPRESSION: No acute fracture, dislocation, or definite destructive process of the bones. Electronically Signed: Sherman Strong MD at 23:36 EDT , Service support , Lower Extremity MRI 06/29/18 16:14 IMPRESSION: Soft tissue swelling with focal ulcer and air in the soft tissues. There is bipartite medial sesamoid with edema consistent with sesamoiditis versus osteomyelitis. Arthritic change at the first MTP joint. Electronically Signed: Phan Rooney MD at 20:22 EDT , Service support , Foot X-Ray 06/30/18 09:00 IMPRESSION: See above. Electronically Signed: Pat Araya at 11:25 EDT Tel , Service support , Consultations 07/01/18 07:19 Consult: Onc/Wound/cardiovascular technician Routine Comment: Reason for Consult:: s/p I+D and debridment diabetic foot infection right foot Comments:: wound care: dressing last changed 07/01/18 7am Harman Mauricio MD: infectious disease EDVIN OliverM: podiatry. Operations: - - Incision, drainage and debridment of all nonviable, infected soft tissue and bone right foot Procedures: None Summary of Care Provided: The patient is a 77 year old M José Luis with right foot cellulitis. Patient had cellulitis on the dorsum of his right foot but also a blister between his first and second toe on the filled with blood. Patient also did have a callus that was on the plantar aspect but also medially on the right foot. Patient did endorse that he did try cutting off the callus with a pen knife. Patient was started on antibiotics and seen by podiatry. MRI was ordered and showed what appeared to be possible osteomyelitis of the sesamoid bones. Patient underwent I&D and debridement on the . Patient was seen in consultation by Dr. Mauricio of infectious disease. Culture grew out gram-positive organism as well as Klebsiella oxytoca. Infectious disease recommends 6 weeks of IV ceftriaxone plus oral Zyvox. Patient was preferring to go home but given his limited weightbearing status and IV antibiotics he is electing go to a halfway facility at this time. [] Patient Problems: Active and Suspected Problems (Last Updated 06/04/17 @ 09:13 by Tabby Flores) Cellulitis of right lower extremity (Acute) Osteomyelitis of foot, acute (Acute) - Physical Exam General: Alert, No apparent distress HEENT: Atraumatic, Normocephalic Extremities: - - right foot and ankle wrapped--did not remove. Vital Signs Temp Pulse Resp BP Pulse Ox 36.7 C 62 18 141/64 H 98 07/02/18 08:05 07/02/18 09:20 07/02/18 08:05 07/02/18 08:05 07/02/18 08:05 Oxygen Delivery Method Room Air Weight: 103.2 kg Body Mass Index (BMI) 31.3 Intake and Output for Last 24 Hours 06/30/18 07/01/18 07/02/18 23:59 23:59 23:59 Intake Total 1155 / 1155 1500 / 1500 1425 / 1425 Output Total 400 / 400 Balance 755 / 755 1500 / 1500 1425 / 1425 Microbiology Past 72 Hours 06/30/18 07:45 Gram Stain - Final Wound Abcess - Right Foot Wound Culture - Preliminary Klebsiella oxytoca Gram positive organism Anaerobic Culture - Preliminary Checking for anaerobes, further studies to follow. 06/29/18 16:40 Gram Stain - Final Wound Abcess - Right Foot Wound Culture - Preliminary Klebsiella oxytoca Corynebacterium jeikeium Gram Positive Cocci Anaerobic Culture - Preliminary Checking for anaerobes, further studies to follow. 06/28/18 22:00 Blood Culture - Preliminary Blood Culture (Wb) - Left Forearm No growth in 48 hours. 06/28/18 22:00 Blood Culture - Preliminary Blood Culture (Wb) - Anticubital Left No growth in 48 hours. Laboratory Tests Past 24 Hrs 07/02/18 07/02/18 05:30 05:30 WBC 10.1 RBC 3.90 L Hgb 11.2 L Hct 33.8 L MCV 86.7 MCH 28.7 MCHC 33.1 RDW 12.6 RDW Differential 40.3 Plt Count 274 MPV 8.8 Immature Gran % (Auto) 0.200 Neut % (Auto) 67.2 Lymph % (Auto) 20.8 [place] % (Auto) 9.3 Eos % (Auto) 1.8 Baso % (Auto) 0.7 Absolute Neuts (auto) 6.8 Absolute Lymphs (auto) 2.09 Total Counted Not Reportable Sodium 143 Potassium 3.6 Chloride 109 H Carbon Dioxide 28.0 Anion Gap 6 BUN 18 Creatinine 1.18 Estim Creat Clear Calc 55.84 Est GFR (MDRD) Af Amer 77 Est GFR (MDRD) Non-Af 64 BUN/Creatinine Ratio 15.3 Glucose 102 Calcium 8.4 L POC Glucose 07/02/18 07/02/18 07/01/18 06:49 01:59 23:05 POC Glucose 98 140 H 162 H 07/01/18 16:40 POC Glucose 211 H Discharge Diet: 1800 Calorie Control Diet Call your doctor if your incision/area has: Continuous Slow Oozing, Sudden Increased Bleeding, Increased Pain/ Swelling, Increased Redness Call your doctor if you observe: Fever of 101 or Higher Home Medications: Medications to take at Discharge amiloride 5 mg tablet 5 mg PO BID tab 05/29/17 aspirin 81 mg tablet,delayed release 81 mg PO DAILY 05/29/17 losartan 50 mg tablet 50 mg PO QDAY 05/29/17 coenzyme Q10 100 mg capsule 100 mg PO QDAY 06/04/17 magnesium oxide 500 mg capsule 500 mg PO BID cap 06/04/17 multivitamin tablet 1 tab PO QDAY 06/04/17 clopidogrel 75 mg tablet 75 mg PO QDAY tab 09/16/17 doxazosin 4 mg tablet 2 mg PO BID tab 09/16/17 metoprolol succinate ER 50 mg tablet,extended release 24 hr 25 mg PO QDAY tab 09/16/17 Alirocumab [Praluent Pen] 75 mg [id number] 06/29/18 Acetaminophen [Tylenol Tablet] 650 mg PO Q6H PRN PRN tablet 07/02/18 Ceftriaxone 2 gm IV Q24 40 Days #40 vial 07/02/18 Enoxaparin [Lovenox] 40 mg SC DAILY@1000 syringe 07/02/18 Glucerna Shake 120 ml PO 4X/DAY liquid 07/02/18 Insulin Glargine [Lantus SoloStar Pen] 35 units SC BID pen 07/02/18 Insulin Lispro [Humalog KwikPen] See Protocol SQ ACHS insuln.pen 07/02/18 Linezolid 600 mg PO BID 40 Days #80 tab 07/02/18 Following Prescrptions Were Given to Patient: Ceftriaxone 2 gm IV Q24 40 Days #40 vial Linezolid 600 mg PO BID 40 Days #80 tab Primary Care Physician: Nawaf Villaseñor MD [Primary Care Provider] - Within 2 Weeks Please Follow Up With: Keenan Oliver DPM When: 1 week Disposition: Half-Way facility Minutes spent on discharge:: 35 Patient Condition:: Good Medical Necessity - Tobacco Use Smoking Status: Never smoker Tobacco Use: Cigarettes Meaningful Use Info Meaningful Use Diagnoses (Choose all that apply): None applicable Code Visit Inpatient E&M: 52847 Disch Hosp
--- NOTE | 2018-07-02 11:45 | CASEMGMT ---
TIFFANY ARREOLA NOTE: Call placed to Estela @ [facility]. She was notified pt will be going to SNF on d/c and will no longer be needing HHC. Asya SAHU RN CM
[2018-07-02] MEDS: 0.9% NaCl Peripheral Flush Adult/Peds IV (12:35)
--- NOTE | 2018-07-02 14:09 | CASEMGMT ---
TIFFANY ARREOLA NOTE: Per [facility], pt's financial obligation for IV atb's and supplies will be $174.94/week once he returns home from the SNF, as long as IV atb script remains unchanged. Pt made aware. Asya SAHU RN CM
[2018-07-02] MEDS: Glucerna Shake 120 ML LIQUID PO (14:51)
[2018-07-02 14:56] VITALS: BP 152/74; PULSE 57; RESP 18; TEMP 36.7; O2SAT 97
--- NOTE | 2018-07-02 15:02 | CASEMGMT ---
Social Work Note SW received message from Karina at [facility] stating she is able to accept pt today. Hugo Shiloh arranged transportation through [facility] via cot at 5:30pm. JAZMÍN spoke with RN who states cot can be justified for pt. JAZMÍN faxed completed discharge paperwork to Karina at [facility] including transfer to extended care facility, signed medication list and any scripts. Original in SNF folder and copy on pt's chart. JAZMÍN completed [facility] in [facility]. Original in SNF folder and copy on pt's chart. JAZMÍN completed transportation form, placed on SNF folder and copy on pt's chart. Pt updated on acceptance to [facility] and transportation time. SW placed a call to Karina at [facility], left message informing her of transportation time and that if needed [facility] was going to be able to accept pt and they could likely accept pt again after discharge from [facility] if needed. Plan: Pt to discharge to [facility] skilled today with [facility] transporting via cot at 5:30pm Marianne Paez MSW, AERONAUTICAL ENGINEER
[2018-07-02 16:31] LABS: Bedside Glucose 158 mg/dL (70-110)
== END 2018-07-02 18:30 | disposition skilled nursing facility (03) | DRG 629 ==
LOC: ED 06-29 01:23 → MS3 06-29 01:28
PROVIDERS: Anesthesiology; Podiatrist; Admitting Provider Family Medicine; Emergency Provider Emergency Medicine; Family Provider Family Medicine; PCP Family Medicine
PROC: 0QBN0ZZ Excision of Right Metatarsal, Open Approach (ICD-10-PCS; principal; 2018-06-30 06:50)
DX: E11.69 Type 2 diabetes mellitus with other specified complication (principal); L03.115 Cellulitis of right lower limb; L02.611 Cutaneous abscess of right foot; M86.171 Other acute osteomyelitis, right ankle and foot; I25.10 Atherosclerotic heart disease of native coronary artery without angina pectoris; E78.5 Hyperlipidemia, unspecified; I10 Essential (primary) hypertension; B96.89 Other specified bacterial agents as the cause of diseases classified elsewhere; Z95.1 Presence of aortocoronary bypass graft; Z79.4 Long term (current) use of insulin; Z95.5 Presence of coronary angioplasty implant and graft; E11.65 Type 2 diabetes mellitus with hyperglycemia
CPT/HCPCS: 36415; 36569; 71046; 73630; 73718; 80048; 80053; 80202; 82962; 83036; 83605; 84484; 85025; 85610; 85730; 87040; 87070; 87075; 87077; 87186; 87205; 87640; 88304; 88305; 88311; 88312; 93005; 93923; 97162; 97165; 97802; 99285; J7030; J7040; J7050; A4216; J0696

== ENCOUNTER 2018-07-17 17:43 | Day surgery (SDC) | payer MEDICARE, OTHER, SELFPAY ==
[2018-06-30 05:11] VITALS: BMI 31.3
[2018-07-17 10:29] VITALS: BP 103/86; PULSE 90; RESP 18; TEMP 36.1; O2SAT 99; BMI 28.9
[2018-07-17 11:26] LABS: Bedside Glucose 91 mg/dL (70-110)
--- NOTE | 2018-07-17 11:30 | BON_PTH ---
PATIENT: PAULINA OSORIO LOC: U#:[id number] AGE/SX: 77/M ROOM: RE07/17/[address]: Dr. Keenan Oliver DPM : 1940 BED: DIS: 07/17/2018 SPEC #: [id number] RECD: 07/17/18 16:14 STATUS: TALHA BALDOMERO #: [id number] AUGUSTO: 07/17/18 11:[address]: Keenan Oliver DEPT: SURGICAL PATHOLOGY RECD BY: Anat Nieto ENTERED: 07/20/18 10:35 SP TYPE: Bone OTHR DR: Dr. Nawaf Villaseñor MD Tissues: A - Bone of foot, NOS B - Bone of foot, NOS C - Bone of foot, NOS Procedures: Decalcification bone/plaque Surgery Specimen Level III HEADER OPERATION: Debridement of all nonviable necrotic tissue and bone PRE-OP DIAGNOSIS: Osteomyelitis right foot, necrosis 1st and 2nd toes TISSUE SUBMITTED: A. Right foot bone and soft tissue, B. Right 1st metatarsal clearance fragment, B. Right 2nd metatarsal clearance fragment MICROSCOPIC DIAGNOSIS A. Right foot, bone and soft tissue, debridement: Cutaneous ulcer with subcutaneous abscess formation. Chronic osteomyelitis. Small blood vessels with subintimal fibrosis and calcification. B. Right first metatarsal clearance fragment: Portion of bone with fatty marrow replacement. C. Right second metatarsal clearance fragment: Portion of bone with fatty marrow replacement. CE:kirk 07/23/18 MICROSCOPIC DESCRIPTION Slides are reviewed. GROSS DESCRIPTION A - Received in fixative is one container labeled with the patient's name and designated right foot bone and soft tissue. The specimen consists of multiple irregular fragments of skin, bone, bone fragments, tendon and portions of distal foot. The detached fragments of bone, bone fragments, soft tissue and tendon in aggregate measure 9.5 x 9 x 1 cm. One large fragment of foot appears to be a great toe with attached bone, skin and soft tissue measuring 9 x 3 x 3 cm and contains the distal end of the toe including nail to be mummified, dark garnica-black in color. The other fragment of foot contains an ulcer in the medial aspect of the second toe measuring 4 x 3.5 x 3 cm. Machine Bender sections are submitted as follows: 1 - skin and soft tissue from detached fragments, 2 - ulcer from medial aspect of second toe, 3 - bone underneath ulcer from medial aspect of second toe after decalcification, 4 - bone, skin and soft from lateral aspect of great toe including bone after decalcification. B - Received in fixative is one container labeled with the patient's name and designated right first metatarsal clearance fragment. The specimen consists of a discoid fragment of garnica bone measuring 2 cm in diameter and 0.2 cm in thickness. The specimen is totally submitted in one cassette after decalcification. C - Received in fixative is one container labeled with the patient's name and designated right second metatarsal clearance fragment. The specimen consists of a discoid fragment of garnica bone measuring 1.2 x 1.1 x 0.3 cm. The specimen is submitted in its entirety in one cassette after decalcification. / AM:kirk 07/20/18 TC:2 CPT: 41700 x3, 54486 x3
--- NOTE | 2018-07-17 13:36 | PCM.DC.POD ---
Discharge Diet: Light diet - advance as tolerated Discharge Activity: May Not Drive Weight Bearing Status: No weight bearing - Strict nonweightbearing right foot Call your doctor if your incision/area has: Continuous Slow Oozing, Sudden Increased Bleeding, Foul Smelling Discharge Call your doctor if you observe: Fever of 101 or Higher, Shortness of breath, Chest pain, Increased palpitations (irregular heartbeat), Calf discomfort, Uncontrolled pain Cleanse incision/area with: - - Wound care right foot for nursing at [facility]: Keep dressing clean, dry and intact for 48 hours, then change dressing daily. Cleanse incision site with normal saline solution, apply Aquacel Ag with in incision site overlying dry gauze, kerlix and aniya dressing gentle compression Allergies/Adverse Reactions: Allergies Iodinated Contrast- Oral and IV Dye [CONTRASTS] Allergy (Verified 07/14/18 13:52) Rash amlodipine [From Norvasc] Adverse Reaction (Unknown, Verified 07/14/18 13:52) Unknown atorvastatin [From Lipitor] Adverse Reaction (Unknown, Verified 07/14/18 13:52) Unknown cerivastatin [From Baycol] Adverse Reaction (Unknown, Verified 07/14/18 13:52) Unknown enalapril Adverse Reaction (Unknown, Verified 07/14/18 13:52) Unknown exenatide [From Byetta] Adverse Reaction (Unknown, Verified 07/14/18 13:52) Unknown ezetimibe [From Zetia] Adverse Reaction (Unknown, Verified 07/14/18 13:52) Unknown fenofibrate [From Tricor] Adverse Reaction (Unknown, Verified 07/14/18 13:52) Unknown gemfibrozil Adverse Reaction (Unknown, Verified 07/14/18 13:52) Unknown glipizide [From Glucotrol] Adverse Reaction (Unknown, Verified 07/14/18 13:52) Unknown labetalol Adverse Reaction (Unknown, Verified 07/14/18 13:52) Unknown lovastatin [From Mevacor] Adverse Reaction (Unknown, Verified 07/14/18 13:52) Unknown metformin [From Glucophage] Adverse Reaction (Unknown, Verified 07/14/18 13:52) Unknown niacin [From Niaspan Extended-Release] Adverse Reaction (Unknown, Verified 07/14/18 13:52) Unknown nifedipine [From Adalat] Adverse Reaction (Unknown, Verified 07/14/18 13:52) Unknown quinapril [From Accupril] Adverse Reaction (Unknown, Verified 07/14/18 13:52) Unknown repaglinide [From Prandin] Adverse Reaction (Unknown, Verified 07/14/18 13:52) Unknown rosuvastatin [From Crestor] Adverse Reaction (Unknown, Verified 07/14/18 13:52) Unknown simvastatin [From Zocor] Adverse Reaction (Unknown, Verified 07/14/18 13:52) Unknown glyburide Adverse Reaction (Verified 07/14/18 13:52) Unknown glyburide Adverse Reaction (Unknown, Uncoded 07/14/18 13:52) Unknown nifedipine Adverse Reaction (Unknown, Uncoded 07/14/18 13:52) Unknown Medications to take at Discharge amiloride 5 mg tablet 5 mg PO BID tab 05/29/17 aspirin 81 mg tablet,delayed release 81 mg PO DAILY 05/29/17 losartan 50 mg tablet 50 mg PO QDAY 05/29/17 coenzyme Q10 100 mg capsule 100 mg PO QDAY 06/04/17 magnesium oxide 500 mg capsule 500 mg PO BID cap 06/04/17 multivitamin tablet 1 tab PO QDAY 06/04/17 clopidogrel 75 mg tablet 75 mg PO QDAY tab 09/16/17 doxazosin 4 mg tablet 2 mg PO QHS tab 09/16/17 metoprolol succinate ER 50 mg tablet,extended release 24 hr 25 mg PO QDAY tab 09/16/17 Alirocumab [Praluent Pen] 75 mg SQ .[id number] 06/29/18 Acetaminophen [Tylenol Tablet] 650 mg PO Q6H PRN PRN tablet 07/02/18 Ceftriaxone 2 gm IV Q24 07/14/18 Insulin Glargine [Lantus SoloStar Pen] 35 units SC BID 07/14/18 Insulin Lispro [Humalog KwikPen] See Protocol SQ ACHS 07/14/18 Linezolid 600 mg PO BID 07/14/18 Primary Care Physician: Nawaf Villaseñor MD [Primary Care Provider] - Test Results: Test results from this visit will be discussed in further detail at your follow-up appointment, if applicable. Please Follow Up With: Keenan Oliver DPM When: within 1 week, sooner if needed, please call/page if needed
--- NOTE | 2018-07-17 13:41 | PCM.OPRPT ---
Report of Operation Date of Procedure: 07/17/18 Pre-Operative Diagnosis: Osteomyelitis and necrosis right foot Post-Operative Diagnosis: Same Surgery/Procedure Performed:: Debridement of all nonviable and necrotic soft tissue and bone from right foot. Transmetatarsal amputation, bone biopsy right foot Type of Anesthesia:: General Specimen's removed: 1. Debrided soft tissue and bone from right foot. 2. Bone biopsy clearance fragment of 1st and 2nd metatarsals both sent to microbiology and pathology separately Estimated Blood Loss (mL): 5mL Description of Procedure: Indications: This is a 77 year old gentleman with history of multiple medical problems, including but not limited to poorly controlled diabetes, CAD, CKD who at the end of June presented the ER and was admitted due to right foot infection, osteomyelitis and abscess (necrotizing infection). Patient underwent I+D, debridement at that time, how he has necrosis of the 1st and 2nd rays distally. Due to this he elected to undergo further debridement of all nonviable necrotic soft tissue and bone, with transmetatarsal amputation and bone biopsy. Reviewed the possible benefits vs risks, goals, expectations and estimated healing time. Ultimately patient understands he is at risk for further infection, amputation, loss of limb, and loss of life. persistent or even worsening infection and ultimate Also advised patient risks also include but are not limited to need for further surgery, blood clots, weakness, transfer lesions, ischemia, bleeding, pain, chronic pain, deformity, numbness, swelling, inability to walk or wear shoes, charcot foot, complex regional pain syndrome, and again loss of limb, and loss of life. Patient expressed understanding and agreement. All of her questions were answered. The consent form was reviewed with patient, and the patient freely signed it. Also with patient's consent I did review with patient's . Operative Procedure: The patient was brought back to the operating room and was placed on the operating room table in the supine position. The patient was carefully secured to the operating room table with a safety belt around his waist. The patient was already on IV antibiotics. A time out was performed and the patient was properly identified and the surgical plan was confirmed. The patient received general anesthesia per the anesthesia team. A well padded pneumatic tourniquet was applied to the right ankle. The right foot was scrubbed, prepped and draped in the usual aseptic fashion. Further attention was directed to the right foot, where there was significant necrosis of the 1st toe and 2nd toe to the 1st and 2nd metatarsal heads, wound was present to this area down to bone. The right foot was elevated for 3 minutes and the right ankle pneumatic tourniquet was inflated to 250mmHg. Using a #15 scalpel blade a circumferential incision was made around the distal right forefoot with care to preserve the viable plantar and dorsal skin for later flap closure. The incision was carried directly to bone. Next using a Gonzalez elevator the soft tissues were reflected off of the first, second, third, fourth, and fifth metatarsals. Then using a powered sagittal saw, osteotomies were made through the shafts of the first, second, third, fourth, and fifth metatarsals with care taken to preserve the parabola of the right foot. These osteotomies were made with a slight bevel from dorsal distal and plantar proximal. The first metatarsal was beveled medially, and the 5th metatarsal was beveled laterally. The bone at this level appeared white, hard, viable, bleeding, with normal healthy appearing cortical bone and marrow cavity. At this time using a #15 scalpel blade the soft tissue attachments to the distal right forefoot were removed again taking care to preserve the skin and subcutaneous tissue of the plantar and dorsal flap. The right forefoot was then removed as passed from the surgical field and sent as a specimen to pathology. There was also noted to be a chronic abscess to the site distally, which was excised. All tendons were cut proximal to the surgical wound. The remaining soft tissues and metatarsals to the right foot appeared healthy, viable, clean, hard, bleeding, free of infection. A clearance fragment was obtained from the 1st and 2nd metatarsal shafts - sent to both pathology and microbiology. This bone did appear healthy, viable and free of infection. The site was flushed with copious amount of normal saline solution. The flap edges were remodeled using a 15 scalpel blade do the dorsal and plantar flaps could be properly aligned without tension. The skin of the dorsal and plantar flaps were reapproximated using skin elena. At this time a surgical dressing of adaptic, 4x4 gauze, webril, and aniya wrap were applied to the right foot. Prior to dressing application the right ankle pneumatic tourniquet was deflated and there was return of warmth and perfusion to the foot. CFT was less than 3 seconds to the flap sites. The patient tolerated the above procedure and anesthesia well with no complications. Patient was transported to the recovery Room with vital signs stable and in good condition. Post operative orders were placed. No weightbearing right foot, keep right foot elevated. Postoperative xrays of the right foot were obtained and reviewed- s/p TMA with a maintained metatarsal parabola, no complications seen. Post-op instructions were reviewed. Patient to be discharged back to long term, and patient to follow up in 1 week, sooner if needed. Grafts/Implants Used: None - Complications None
[2018-07-17 13:45] VITALS: BP 103/86; BP 134/78; PULSE 90; RESP 16; TEMP 36.4; O2SAT 97
[2018-07-17 14:00] VITALS: BP 103/86; BP 129/77; PULSE 77; RESP 16; O2SAT 95
--- NOTE | 2018-07-17 14:00 | RAD_ITS ---
STUDY: X-RAY - RIGHT FOOT CLINICAL: Male, 77 years old. Postop right thyroid TECHNIQUE: 3 view(s) of the foot. COMPARISON: June 30, 2018 right foot x-ray FINDINGS: There is enthesopathy at the calcaneus. There is a calcaneal plantar spur Normal visualized subtalar, talonavicular, calcaneocuboid, tarsal and tarsometatarsal articulations. Been amputation of the distal foot at the mid to proximal shaft of the metatarsals. There are overlying skin elena. Normal metatarsophalangeal joint of the great toe. Normal tibial and fibular sesamoid bones. Normal interphalangeal joint of the great toe. Normal phalanges of the great toe. Normal second through fifth metatarsophalangeal joints. Normal interphalangeal joints and phalanges of the lesser toes. RAD/Foot min 3 Views IMPRESSION: That is post amputation of the foot at the mid metatarsals level. Electronically Signed: Emilia Greenwood MD at 16:13 EDT Tel , Service support ,
[2018-07-17 14:10] LABS: Bedside Glucose 89 mg/dL (70-110)
[2018-07-17 14:15] VITALS: BP 103/86; BP 139/78; PULSE 74; RESP 20; O2SAT 96
[2018-07-17 14:31] VITALS: BP 103/86; BP 145/76; PULSE 72; RESP 18; TEMP 36.6; O2SAT 97
[2018-07-17 15:45] VITALS: BP 103/86; BP 125/55; PULSE 74; RESP 16; TEMP 36.4; O2SAT 99
== END 2018-07-17 17:45 | disposition home or self-care (01) ==
PROVIDERS: Family Provider Family Medicine; PCP Family Medicine; Referring Provider Podiatrist; Visit Provider Podiatrist
PROC: (CPT 28805; principal; 2018-07-17 11:15)
DX: M86.671 Other chronic osteomyelitis, right ankle and foot (principal); I96 Gangrene, not elsewhere classified; E11.42 Type 2 diabetes mellitus with diabetic polyneuropathy; I12.9 Hypertensive chronic kidney disease with stage 1 through stage 4 chronic kidney disease, or unspecified chronic kidney disease; N18.3 Chronic kidney disease, stage 3 (moderate); Z95.1 Presence of aortocoronary bypass graft; Z79.4 Long term (current) use of insulin; I25.10 Atherosclerotic heart disease of native coronary artery without angina pectoris
CPT/HCPCS: 01480; 11044; 28805; 73630; 82962; 87070; 87075; 87077; 87176; 87186; 87205; 88304; 88311; J7120; A4216; J2405

== ENCOUNTER 2018-08-15 07:50 | Outpatient (CLI) | payer SELFPAY ==
[2018-08-15] VITALS (8 sets, daily range): BP systolic 93–133; BP diastolic 48–65; PULSE 64–78; RESP 16–18; TEMP 36.6–36.7; O2SAT 97–99; BMI 28.9
--- NOTE | 2018-08-15 16:49 | NURSING ---
blood completed [facility] here and taking him back
== END 2018-08-15 16:55 | disposition skilled nursing facility (03) ==
LOC: MEDOUTP 07:52 → MS3 07:56
PROVIDERS: Family Provider Family Medicine; PCP Family Medicine; Visit Provider Family Medicine
DX: D64.9 Anemia, unspecified (principal)
CPT/HCPCS: 36430; 86850; 86900; 86920; 86922; P9016

== ENCOUNTER 2018-08-21 16:49 | Inpatient (IN) | payer MEDICARE, OTHER, SELFPAY ==
[2018-08-15 11:44] VITALS: BMI 28.9
[2018-08-21] VITALS (7 sets, daily range): BP systolic 108–121; BP diastolic 33–56; PULSE 60–104; RESP 13–18; TEMP 36.4–39.1; O2SAT 96–98; BMI 32.3; BMI 28.6
--- NOTE | 2018-08-21 17:33 | EKG12_ITS ---
Test Reason : FEVER Blood Pressure : / mmHG Vent. Rate : 083 BPM Atrial Rate : 083 BPM P-R Int : 148 ms QRS Dur : 076 ms QT Int : 350 ms P-R-T Axes : 017 028 073 degrees QTc Int : 411 ms Normal sinus rhythm Possible Inferior infarct (cited on or before 28-JUN-2018) Abnormal ECG Confirmed by BAIRON ESCALERA ([id number]), medical editor EL SHERMAN ([id number]) on 08/26/2018 2:07:31 PM Referred By: Shaka De La Torre Confirmed By:BAIRON ESCALERA
[2018-08-21 17:44] LABS: Mucous, Urine 0 SEEN /hpf (<or=2+); Red Blood Cells-Urine 0 SEEN /hpf (0-5); Squamous Epithelial Cells - UA 0 SEEN /hpf (0-5)
[2018-08-21] MEDS: 0.9% Normal Saline 1,000 ML 150 ML IV (17:53)
[2018-08-21 18:02] LABS: International Normalized Ratio 1.3; Partial Thromboplast Time 38.3 Seconds (24.1-36.2); Prothrombin Time (Protime)PT. 15.5 SECONDS (11.7-14.9)
[2018-08-21 18:05] LABS: ALB/GLOB Ratio 0.6 RATIO (0.9-2.4); AST(SGOT) 15 U/L (15-37); Alanine Aminotransfer ALT/SGPT 21 U/L (16-61); Albumin, Serum 2.7 g/dL (3.2-5.0); Alkaline Phosphatase 124 U/L (45-117); Anion Gap 4 (5-15); BUN 19 mg/dL (7-18); BUN/Creat Ratio 13.3 RATIO (10-20); Calcium,Total 8.4 mg/dL (8.5-10.1); Chloride 103 mmol/L (98-107); Creatinine, Serum 1.43 mg/dL (0.70-1.30); EST Glomerular Filtration Rate 51 mL/min (>60); Est Glom Filt Rate - Afr Amer 62 mL/min (>60); Estimated Creatinine Clearance 43.96 ml/min; Globulin 4.2 g/dL (2.2-4.2); Glucose 85 mg/dL (74-106); Potassium 4.3 mmol/L (3.5-5.1); Protein, Total 6.9 g/dL (6.4-8.2); Sodium Level 133 mmol/L (136-145)
[2018-08-21 18:06] LABS: Color, Urine Yellow (Yellow); Glucose, Dipstick Normal (Normal); Ketone-Dipstick Negative (Negative); Leukocyte Esterase-Dipstick Negative /ul (Negative); Nitrite-Dipstick Negative (Negative); Occult Blood-Urine 150 /ul (Negative); Protein-Dipstick 100 mg/dl (Negative); Specific Gravity, Urine 1.015 (1.002-1.030); Urine Bilirubin Dipstick Negative (Negative); Urine Clarity Clear (Clear); Urine Urobilinogen Normal (Normal)
--- NOTE | 2018-08-21 18:14 | RAD_ITS ---
STUDY: X-RAY CHEST REASON FOR EXAM: Male, 78 years old. Chest pain TECHNIQUE: Frontal view of the chest COMPARISON: 06/28/2018 FINDINGS: There are stable bilateral calcified pleural plaques. There is stable elevation of the right hemidiaphragm with right basilar atelectasis. There are no focal infiltrates. There are no pleural effusions. There is no pneumothorax. Stable in size. Again noted are sternotomy wires. The visualized osseous structures are within normal limits. RAD/Chest 1 View (Portable) IMPRESSION: No acute thoracic pathology. Electronically Signed: Sanya Callahan, at 18:51 EDT Tel , Service support ,
[2018-08-21 18:15] LABS: Lactic Acid 1.4 mmol/L (0.4-2.0)
--- NOTE | 2018-08-21 18:18 | RAD_ITS ---
STUDY: X-RAY - RIGHT FOOT CLINICAL: Male, 78 years old. Infection. Redness. TECHNIQUE: 3 view(s) of the foot. COMPARISON: 07/17/2018 FINDINGS: There is no evidence of fracture or dislocation. There are stable post surgical changes from amputation of the right foot at the level of the mid metatarsal. When compared with the prior exam, there are new erosions in the proximal fifth metatarsal which is suspicious for osteomyelitis. There are no radiodense foreign bodies. RAD/Foot min 3 Views IMPRESSION: Stable postsurgical changes. New erosions in the proximal fifth metatarsal which are suspicious for osteomyelitis. No fracture or dislocation. Electronically Signed: Sanya Callahan, at 18:40 EDT Tel , Service support ,
[2018-08-21 18:22] LABS: Bacteria RARE /hpf (None Seen); White Blood Cells 0-5 SEEN /hpf (0-5)
[2018-08-21 18:39] LABS: Absolute Lymphocyte Count 0.55 X10^3/ul (0.83-4.51); Absolute Neutrophil Count 6.1 X10^3/uL (2.0-7.7); Basophil# 0.02 X10^3/uL; Basophil% 0.3 % (0-1); Eosinophil# 0.01 X10^3/uL; Eosinophils% 0.1 % (0-5); Hematocrit 26.5 % (40-54); Hemoglobin 7.3 g/dl (13.0-16.5); Lymphocyte # 0.55 X10^3/ul (4.0); Lymphocyte % 7.5 % (19-41); Mean Corp Hgb Conc 27.5 g/gl (32-36); Mean Corpuscular Hgb 23.1 pg (27.0-32.0); Mean Corpuscular Volume 83.9 fL (80-94); Mean Platelet Vol. 9.7 fl (6.2-12.0); Monocyte# 0.62 X10^3/uL; Monocyte% 8.5 % (0-10); Neutrophil # 6.09 X10^3/uL (2.7-7.7); Neutrophil % 83.3 % (47-70); Platelet Count 218 K/mm3 (150-450); RBC Distribution Width CV 13.4 % (11.6-14.6); RBC Distribution Width SD 38.8 fl (35.1-43.9); Red Blood Count 3.16 M/mm3 (4.6-6.2); White Blood Count 7.3 K/mm3 (4.4-11.0)
[2018-08-21 18:40] LABS: Differential Indicated SCAN CRITERIA MET; POSITIVE COUNT NO; POSITIVE DIFFERENTIAL YES; POSITIVE MORPHOLOGY NO
[2018-08-21] MEDS: Acetaminophen 325 MG Tablet 650 MG PO (19:13)
[2018-08-21 19:22] LABS: Anisocytosis RARE; Hypochromasia 1+; Platelet Estimate ADEQUATE (ADEQ)
--- NOTE | 2018-08-21 19:22 | ED.VISSUMM ---
- ER Visit Summary Date of Service: 08/21/18 Chief Complaint: Fever History of Present Illness: The patient is a 78 M who was admitted to the hospital in late June with cellulitis and osteomyelitis of the right foot. He had a partial foot amputation at that time. Patient continues to have a wound VAC in place. He finished Zosyn and Rocephin approximately 4 days ago. Patient reported he had Reiger's this morning and had fever per home health this afternoon. Right foot wound looks more erythematous. Physical Examination: Blood pressure is 118/56, temperature 98.6, heart rate 104, respiratory rate 16, pulse ox 96% on room air. The time of my examination his oral temperature is 100.3. Patient sitting upright in bed no acute distress. Head and neck examination normal. Heart is regular rate and rhythm. Lung sounds are clear. Abdomen is soft and nontender. Right lower extremity examination reveals right foot wound VAC to be in place. There is mild erythema. There is slight discharge on the dressing at the distal staple site. There is no lymphangitic streaking. Test Results: Blood and wound cultures were sent. CBC was normal white count. Hemoglobin is 7.3. Chemistry studies reveal BUN of 19 and a creatinine 1.43. LFTs unremarkable. INR 1.3. Urinalysis shows no sign of acute infection. Lactate is 1.4. EKG is sinus [address] change. Chest x-ray is unremarkable. Right foot x-ray reveals stable postsurgical changes. There are no erosions noted along the proximal fifth metatarsal suspicious for osteomyelitis. Emergency Department Course and Treatment: Patient received Tylenol for low-grade fever here along with Zosyn and vancomycin. 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 Treatment Plan: [] Disposition: Admit Impression: Osteomyelitis right foot This note was generated with [employer] dictation software. It may contain incorrect words, spelling, and punctuation that were not noted in review of the chart prior to signing ED Disposition - Plan for ED Patient: Referrals: Nawaf Villaseñor MD [Primary Care Provider] -
--- NOTE | 2018-08-21 19:32 | PCM.HP.STD ---
Problem List (1) Osteomyelitis of foot, acute Status: Suspected (2) DM type 2, uncontrolled, with renal complications Status: Acute History of Present Illness Date of Admission: 08/21/18 Chief Complaint: right thigh pain, fever and rigors. The patient is a 78 year old M with a significant history of Diabetes mellitus, HTN, history of osteomyelitis with 3 amputation who reportedly completed antibiotics about 4 days ago presenting with increased redness of his right foot stump and pain at his right hip that he attributes to a referred pain from his stump. He reports no feeling in his right foot otherwise. Reportedly patient had a fever of more than 102 at home. Also he had rigors and increased redness at his right stump. Of note patient thinks that his amputation resulted from the use of Invokana. Past Medical History Past Medical History (Chronic Problems): Chronic Problems (Last Reviewed 08/21/18 @ 21:04 by Shaka De La Torre MD) Hyperlipidemia associated with type 2 diabetes mellitus (Chronic) Managed by Dr. King. New chol agent being used. Chol now 164, LDL 75. Taking monthly injection. Essential hypertension with goal blood pressure less than 130/80 (Chronic) Hx of elevated BG in medical office. Monitors at home daily with findings of normal BP. No change in regimen. Uncontrolled type 2 diabetes mellitus, with long-term current use of insulin (Chronic) BG readings in range in am. When checked pre lunch BG remain well controlled. However before evening meal BG 200+ range. He is instructed on need to resume his lunch insulin. He currently runs high BG from after lunch until he corrects at bedtime, resulting in 10 hours daily of high BG. I reminded him this is the same conversation we had at last visit. He agrees to take insulin as directed. Follows with Dr. Serna for nephrology. Follows with cardiology as well. A1c now 8.6 Medical History: Medical History (Last Reviewed 08/21/18 @ 21:15 by Shaka De La Torre MD) Bone fracture T14.8XXA Diabetes type 2, controlled E11.9 Dx : 1996 Last exacerbation : DKA : never Hypoglycemic episode : never ER visit : never Hearing problem H91.90 High cholesterol E78.00 High triglycerides E78.1 Pneumonia J18.9 Vascular disease I99.9 HTN (hypertension) I10 Allergies Iodinated Contrast- Oral and IV Dye [CONTRASTS] Allergy (Verified 08/21/18 16:53) Rash amlodipine [From Norvasc] Adverse Reaction (Unknown, Verified 08/21/18 16:53) Unknown atorvastatin [From Lipitor] Adverse Reaction (Unknown, Verified 08/21/18 16:53) Unknown cerivastatin [From Baycol] Adverse Reaction (Unknown, Verified 08/21/18 16:53) Unknown enalapril Adverse Reaction (Unknown, Verified 08/21/18 16:53) Unknown exenatide [From Byetta] Adverse Reaction (Unknown, Verified 08/21/18 16:53) Unknown ezetimibe [From Zetia] Adverse Reaction (Unknown, Verified 08/21/18 16:53) Unknown fenofibrate [From Tricor] Adverse Reaction (Unknown, Verified 08/21/18 16:53) Unknown gemfibrozil Adverse Reaction (Unknown, Verified 08/21/18 16:53) Unknown glipizide [From Glucotrol] Adverse Reaction (Unknown, Verified 08/21/18 16:53) Unknown labetalol Adverse Reaction (Unknown, Verified 08/21/18 16:53) Unknown lovastatin [From Mevacor] Adverse Reaction (Unknown, Verified 08/21/18 16:53) Unknown metformin [From Glucophage] Adverse Reaction (Unknown, Verified 08/21/18 16:53) Unknown niacin [From Niaspan Extended-Release] Adverse Reaction (Unknown, Verified 08/21/18 16:53) Unknown nifedipine [From Adalat] Adverse Reaction (Unknown, Verified 08/21/18 16:53) Unknown quinapril [From Accupril] Adverse Reaction (Unknown, Verified 08/21/18 16:53) Unknown repaglinide [From Prandin] Adverse Reaction (Unknown, Verified 08/21/18 16:53) Unknown rosuvastatin [From Crestor] Adverse Reaction (Unknown, Verified 08/21/18 16:53) Unknown simvastatin [From Zocor] Adverse Reaction (Unknown, Verified 08/21/18 16:53) Unknown glyburide Adverse Reaction (Unknown, Uncoded 08/21/18 16:53) Unknown nifedipine Adverse Reaction (Unknown, Uncoded 08/21/18 16:53) Unknown Home Medications: Ambulatory Orders Medication Instructions Recorded amiloride 5 mg tablet 5 mg PO BID tab 05/29/17 aspirin 81 mg tablet,delayed 81 mg PO DAILY 05/29/17 release losartan 50 mg tablet 50 mg PO DAILY 05/29/17 coenzyme Q10 100 mg capsule 100 mg PO DAILY 06/04/17 magnesium oxide 500 mg capsule 500 mg PO BID cap 06/04/17 doxazosin 4 mg tablet 2 mg PO QHS tab 09/16/17 metoprolol succinate ER 50 mg 25 mg PO DAILY tab 09/16/17 tablet,extended release 24 hr Alirocumab [Praluent Pen] 75 mg [id number] 06/29/18 Insulin Glargine [Lantus SoloStar 24 units SC BID 07/14/18 Pen] Insulin Lispro [Humalog KwikPen] See Protocol SQ ACHS 07/14/18 Linezolid 600 mg PO BID 07/14/18 Clopidogrel Bisulfate [Clopidogrel] 37.5 mg PO DAILY 08/21/18 Krill/Om-3/Dha/Epa/Phospho/Ast 1 cap PO DAILY 08/21/18 [Krill Oil 1,000 mg Softgel] Multivit-Min/FA/Lycopen/Lutein 1 tab PO DAILY 08/21/18 [Centrum Silver Tablet] Surgical History: Surgical History (Last Reviewed 08/21/18 @ 21:04 by Shaka De La Torre MD) H/O heart surgery Z98.890 History of lung surgery Z98.890 Lives: Spouse/ Significant Other Smoking Status: Never smoker - *Family History Maternal History Items: Diabetes, Heart Disease, Stroke Paternal History Items: Heart Disease, Hypertension, - - His father from heart attack at age 56. Review of Systems Constitutional: Reports: Anorexia, Chills, Fever HEENT: Denies: Head Aches, Sinus Congestion, Sinus Drainage Cardiovascular: Denies: Chest Pain, Palpitations Respiratory: Denies: Cough, Shortness of breath at rest, Sputum production Gastrointestinal: Denies: Abdominal Pain, Nausea, Vomiting Genitourinary: Denies: Dysuria Musculoskeletal: Reports: - - Right thigh pain Skin: Reports: - - Redness of stump of right foot.. Denies: Rash, Wounds Neurological: Denies: Numbness, Tingling, Focal weakness Psychiatric: Denies: Anxiety, Depression, Homicidal Ideations, Suicidal Ideations Hematologic/ Lymphatic: Denies: Easy Bruising, Easy Bleeding VTE Information - Inpt Only VTE Present on Admission: No VTE Mechan Device Prophylaxis: None VTE Pharm Prophylaxis ordered?: Yes - Physical Exam General: Alert, Oriented x3, Cooperative HEENT: Atraumatic, PERRLA, EOMI, Normocephalic Neck: Supple, No JVD, Negative Carotid Bruits Lungs: Clear to auscultation, Normal air movement Cardiovascular: Regular rate, No murmurs Abdomen: Bowel Sounds Present, Soft, Non Tender Extremities: No edema, Capillary Refill Less than 3 Seconds Skin: - - amputed metatarsal of right foot. Redness around area; wound vac in place. Musculoskeletal: No Tenderness to Palpation of Joints or Extremities Neurological: Cranial nerves II-XII grossly intact Psych/Mental Status: Normal Affect, Appropriate Vital Signs Temp Pulse Resp BP Pulse Ox 102.4 F H 82 18 109/52 L 96 08/21/18 19:11 08/21/18 19:16 08/21/18 19:16 08/21/18 19:16 08/21/18 19:16 Oxygen Delivery Method Room Air Weight: 102.058 kg Body Mass Index (BMI) 32.3 Finger Stick Blood Glucose 89 Laboratory Tests Past 24 Hrs 08/21/18 08/21/18 08/21/18 17:25 17:35 17:35 WBC 7.3 RBC 3.16 L Hgb 7.3 L Hct 26.5 L MCV 83.9 MCH 23.1 L MCHC 27.5 L RDW 13.4 RDW Differential 38.8 Plt Count 218 MPV 9.7 Immature Gran % (Auto) 0.300 Neut % (Auto) 83.3 H Lymph % (Auto) 7.5 L [place] % (Auto) 8.5 Eos % (Auto) 0.1 Baso % (Auto) 0.3 Absolute Neuts (auto) 6.1 Absolute Lymphs (auto) 0.55 L Total Counted Not Reportable Differential Comment SEE COMMENT Platelet Estimate ADEQUATE Hypochromasia 1+ Anisocytosis RARE PT 15.5 H INR 1.3 APTT 38.3 H Sodium Potassium Chloride Carbon Dioxide Anion Gap BUN Creatinine Estim Creat Clear Calc Est GFR (MDRD) Af Amer Est GFR (MDRD) Non-Af BUN/Creatinine Ratio Glucose Lactic Acid Calcium Total Bilirubin AST ALT Alkaline Phosphatase Total Protein Albumin Globulin Albumin/Globulin Ratio Urine Color Yellow Urine Clarity Clear Urine pH 5.0 Ur Specific [place] 1.015 Urine Protein 100 H Urine Glucose (UA) Normal Urine Ketones Negative Urine Occult Blood 150 H Urine Nitrite Negative Urine Bilirubin Negative Urine Urobilinogen Normal Ur Leukocyte Esterase Negative Urine RBC 0 SEEN Urine WBC 0-5 SEEN Ur Squamous Epith Cells 0 SEEN Urine Bacteria RARE Urine Mucus 0 SEEN 08/21/18 08/21/18 17:35 17:35 WBC RBC Hgb Hct MCV MCH MCHC RDW RDW Differential Plt Count MPV Immature Gran % (Auto) Neut % (Auto) Lymph % (Auto) [place] % (Auto) Eos % (Auto) Baso % (Auto) Absolute Neuts (auto) Absolute Lymphs (auto) Total Counted Differential Comment Platelet Estimate Hypochromasia Anisocytosis PT INR APTT Sodium 133 L Potassium 4.3 Chloride 103 Carbon Dioxide 26.0 Anion Gap 4 L BUN 19 H Creatinine 1.43 H Estim Creat Clear Calc 43.96 Est GFR (MDRD) Af Amer 62 Est GFR (MDRD) Non-Af 51 L BUN/Creatinine Ratio 13.3 Glucose 85 Lactic Acid 1.4 Calcium 8.4 L Total Bilirubin 0.50 AST 15 ALT 21 Alkaline Phosphatase 124 H Total Protein 6.9 Albumin 2.7 L Globulin 4.2 Albumin/Globulin Ratio 0.6 L Urine Color Urine Clarity Urine pH Ur Specific [place] Urine Protein Urine Glucose (UA) Urine Ketones Urine Occult Blood Urine Nitrite Urine Bilirubin Urine Urobilinogen Ur Leukocyte Esterase Urine RBC Urine WBC Ur Squamous Epith Cells Urine Bacteria Urine Mucus Assessment/Plan All Active Problems (Last Reviewed 08/21/18 @ 21:04 by Shaka De La Torre MD) Cellulitis of right lower extremity (Acute) DM type 2, uncontrolled, with renal complications (Acute) The patient is a 78 year old M with a significant history of Diabetes mellitus, HTN, history of osteomyelitis with 3 amputation who reportedly completed antibiotics about 4 days ago presenting with increased redness of his right foot stump and pain at his right hip that he attributes to a referred pain from his stump; fever and chills consistent with likely recurrence osteomyelitis of his right foot stump. Acute osteomyelitis of foot of R stump. Patient with reported referred pain at right hip in the setting of no feeling in the stump. Reports redness of stump. Leave wound VAC in place. X-ray of right foot showed new erosions in the proximal fifth metatarsal which is suspicious for osteomyelitis. X-ray was independently reviewed and agree with radiologist interpretation. Will not get MRI at this time as I intend to consult orthopedic surgeon and infectious disease. Discontinue home Linezolid. Patient received vancomycin and Zosyn in the emergency department. Vancomycin and Zosyn continued. We will check ESR and CRP. Trend CBC and BMP CAD status post CABG Aspirin and clopidogrel continued. On home PCSK 9 inhibitor (Alirocumab (Praluent Pen)) that patient takes every 2 weeks. Of note last time he took it was about 7 weeks ago. Hypertension On presentation his blood pressure was within goal. Losartan; metoprolol and amiloride continued. Trend blood pressure and adjust blood pressure medication. Diabetes mellitus On presentation his blood glucose on BMP was 84 we will put patient at high risk of hypoglycemia. We will hold off home insulin glycine the patient takes twice daily. Continue patient on correction scale insulin. DVT prophylaxis Subcutaneous Lovenox ordered. Code Visit Inpatient E&M: 10995 Init Hosp L3
--- NOTE | 2018-08-21 21:29 | PCM.CONS.GEN ---
Problem List (1) Type 2 diabetes mellitus with diabetic polyneuropathy Status: Acute (2) Malnutrition Status: Acute (3) Delayed wound healing Status: Acute (4) Cellulitis of right lower extremity Status: Acute (5) Uncontrolled type 2 diabetes mellitus, with long-term current use of insulin Status: Chronic Comment: BG readings in range in am. When checked pre lunch BG remain well controlled. However before evening meal BG 200+ range. He is instructed on need to resume his lunch insulin. He currently runs high BG from after lunch until he corrects at bedtime, resulting in 10 hours daily of high BG. I reminded him this is the same conversation we had at last visit. He agrees to take insulin as directed. Follows with Dr. Serna for nephrology. Follows with cardiology as well. 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 He is previously known to his surgeon, Dr. Oliver, who performed an incision and drainage on 06/30/2018 and a staged transmetatarsal amputation on 07/17/2018. The patient reports he began feeling ill with fever and chills yesterday. Home health nursing staff was concerned about his 102 degree fever earlier this afternoon and his reports he is confused and not acting like himself. He denies trauma. He denies pain. He denies nausea or vomiting. Past Medical History Past Medical History (Chronic Problems): Chronic Problems (Last Reviewed 08/21/18 @ 21:15 by Shaka De La Torre MD) Ulcer with necrosis of bone (Chronic) Hyperlipidemia associated with type 2 diabetes mellitus (Chronic) Managed by Dr. King. New chol agent being used. Chol now 164, LDL 75. Taking monthly injection. Essential hypertension with goal blood pressure less than 130/80 (Chronic) Hx of elevated BG in medical office. Monitors at home daily with findings of normal BP. No change in regimen. Uncontrolled type 2 diabetes mellitus, with long-term current use of insulin (Chronic) BG readings in range in am. When checked pre lunch BG remain well controlled. However before evening meal BG 200+ range. He is instructed on need to resume his lunch insulin. He currently runs high BG from after lunch until he corrects at bedtime, resulting in 10 hours daily of high BG. I reminded him this is the same conversation we had at last visit. He agrees to take insulin as directed. Follows with Dr. Serna for nephrology. Follows with cardiology as well. A1c now 8.6 Medical History: Medical History (Last Reviewed 08/21/18 @ 21:15 by Shaka De La Torre MD) Bone fracture T14.8XXA Diabetes type 2, controlled E11.9 Dx : 1996 Last exacerbation : DKA : never Hypoglycemic episode : never ER visit : never Hearing problem H91.90 High cholesterol E78.00 High triglycerides E78.1 Pneumonia J18.9 Vascular disease I99.9 HTN (hypertension) I10 Allergies Iodinated Contrast- Oral and IV Dye [CONTRASTS] Allergy (Verified 08/21/18 16:53) Rash amlodipine [From Norvasc] Adverse Reaction (Unknown, Verified 08/21/18 16:53) Unknown atorvastatin [From Lipitor] Adverse Reaction (Unknown, Verified 08/21/18 16:53) Unknown cerivastatin [From Baycol] Adverse Reaction (Unknown, Verified 08/21/18 16:53) Unknown enalapril Adverse Reaction (Unknown, Verified 08/21/18 16:53) Unknown exenatide [From Byetta] Adverse Reaction (Unknown, Verified 08/21/18 16:53) Unknown ezetimibe [From Zetia] Adverse Reaction (Unknown, Verified 08/21/18 16:53) Unknown fenofibrate [From Tricor] Adverse Reaction (Unknown, Verified 08/21/18 16:53) Unknown gemfibrozil Adverse Reaction (Unknown, Verified 08/21/18 16:53) Unknown glipizide [From Glucotrol] Adverse Reaction (Unknown, Verified 08/21/18 16:53) Unknown labetalol Adverse Reaction (Unknown, Verified 08/21/18 16:53) Unknown lovastatin [From Mevacor] Adverse Reaction (Unknown, Verified 08/21/18 16:53) Unknown metformin [From Glucophage] Adverse Reaction (Unknown, Verified 08/21/18 16:53) Unknown niacin [From Niaspan Extended-Release] Adverse Reaction (Unknown, Verified 08/21/18 16:53) Unknown nifedipine [From Adalat] Adverse Reaction (Unknown, Verified 08/21/18 16:53) Unknown quinapril [From Accupril] Adverse Reaction (Unknown, Verified 08/21/18 16:53) Unknown repaglinide [From Prandin] Adverse Reaction (Unknown, Verified 08/21/18 16:53) Unknown rosuvastatin [From Crestor] Adverse Reaction (Unknown, Verified 08/21/18 16:53) Unknown simvastatin [From Zocor] Adverse Reaction (Unknown, Verified 08/21/18 16:53) Unknown glyburide Adverse Reaction (Unknown, Uncoded 08/21/18 16:53) Unknown nifedipine Adverse Reaction (Unknown, Uncoded 08/21/18 16:53) Unknown Home Medications: Ambulatory Orders Medication Instructions Recorded amiloride 5 mg tablet 5 mg PO BID tab 05/29/17 aspirin 81 mg tablet,delayed 81 mg PO DAILY 05/29/17 release losartan 50 mg tablet 50 mg PO DAILY 05/29/17 coenzyme Q10 100 mg capsule 100 mg PO DAILY 06/04/17 magnesium oxide 500 mg capsule 500 mg PO BID cap 06/04/17 doxazosin 4 mg tablet 2 mg PO QHS tab 09/16/17 metoprolol succinate ER 50 mg 25 mg PO DAILY tab 09/16/17 tablet,extended release 24 hr Alirocumab [Praluent Pen] 75 mg [id number] 06/29/18 Insulin Glargine [Lantus SoloStar 24 units SC BID 07/14/18 Pen] Insulin Lispro [Humalog KwikPen] See Protocol SQ ACHS 07/14/18 Linezolid 600 mg PO BID 07/14/18 Clopidogrel Bisulfate [Clopidogrel] 37.5 mg PO DAILY 08/21/18 Krill/Om-3/Dha/Epa/Phospho/Ast 1 cap PO DAILY 08/21/18 [Krill Oil 1,000 mg Softgel] Multivit-Min/FA/Lycopen/Lutein 1 tab PO DAILY 08/21/18 [Centrum Silver Tablet] Surgical History: Surgical History (Last Reviewed 08/21/18 @ 21:04 by Shaka De La Torre MD) H/O heart surgery Z98.890 History of lung surgery Z98.890 Lives: Spouse/ Significant Other Smoking Status: Never smoker Tobacco Use: Non-smoker - *Family History Maternal History Items: Diabetes, Heart Disease, Stroke Paternal History Items: Heart Disease, Hypertension, - - His father from heart attack at age 56. Review of Systems Constitutional: Reports: Chills, Fever, Fatigue Cardiovascular: Reports: Edema. Denies: Chest Pain, Claudication Gastrointestinal: Denies: Nausea, Vomiting Musculoskeletal: Denies: Foot Pain, Leg Pain Skin: Reports: Skin Changes, Wounds Patient Problems: Active and Suspected Problems (Last Reviewed 08/21/18 @ 21:15 by Shaka De La Torre MD) Type 2 diabetes mellitus with diabetic polyneuropathy (Acute) Malnutrition (Acute) Delayed wound healing (Acute) Osteomyelitis (Suspected) - Physical Exam General: Alert, Oriented x3, Cooperative HEENT: Atraumatic Extremities: No cyanosis, Capillary Refill Less than 3 Seconds - Dorsal and plantar transmetatarsal amputation flap site, No Calf Tenderness - Negative Ceferino and Sloan sign bilateral, Diminished Peripheral Pulses, Edema - Bilateral lower extremities, - - Right transmetatarsal amputation. Left dorsal contraction of all digits with active range of motion noted. Compartments remain soft to palpate bilateral lower extremities. There is no crepitus or bogginess on palpation to the right foot Skin: Ulcer/ Wound - Status post transmetatarsal amputation incision has lateral aspect elena intact. At the medial aspect the wound bed is fibrous necrotic with seropurulent drainage of approximately 3 cc and there is exposed white and firm first and second metatarsal shafts. The foot is warm to touch and has diffuse cellulitis. There is no streaking to the leg. There is a faint odor. After irrigation bedside there is no additional purulence tracking from the deep plantar arch or other fascial compartment. The peripheral skin is hairless and atrophic. There are no other ulcers, maceration or locations of infection noted bilateral lower extremities Musculoskeletal: No Tenderness to Palpation of Joints or Extremities, Muscle Wasting Neurological: - - Lack of normal epicritic sensation light touch consistent with neuropathy status Psych/Mental Status: Normal Affect, Appropriate Vital Signs Temp Pulse Resp BP Pulse Ox 102.4 F H 82 18 109/52 L 96 08/21/18 19:11 08/21/18 19:16 08/21/18 19:16 08/21/18 19:16 08/21/18 19:16 Oxygen Delivery Method Room Air Weight: 90.492 kg Body Mass Index (BMI) 28.6 Finger Stick Blood Glucose 89 Laboratory Tests Past 24 Hrs 08/21/18 08/21/18 08/21/18 17:25 17:35 17:35 WBC 7.3 RBC 3.16 L Hgb 7.3 L Hct 26.5 L MCV 83.9 MCH 23.1 L MCHC 27.5 L RDW 13.4 RDW Differential 38.8 Plt Count 218 MPV 9.7 Immature Gran % (Auto) 0.300 Neut % (Auto) 83.3 H Lymph % (Auto) 7.5 L [place] % (Auto) 8.5 Eos % (Auto) 0.1 Baso % (Auto) 0.3 Absolute Neuts (auto) 6.1 Absolute Lymphs (auto) 0.55 L Total Counted Not Reportable Differential Comment SEE COMMENT Platelet Estimate ADEQUATE Hypochromasia 1+ Anisocytosis RARE PT 15.5 H INR 1.3 APTT 38.3 H Sodium Potassium Chloride Carbon Dioxide Anion Gap BUN Creatinine Estim Creat Clear Calc Est GFR (MDRD) Af Amer Est GFR (MDRD) Non-Af BUN/Creatinine Ratio Glucose Lactic Acid Calcium Total Bilirubin AST ALT Alkaline Phosphatase Total Protein Albumin Globulin Albumin/Globulin Ratio Urine Color Yellow Urine Clarity Clear Urine pH 5.0 Ur Specific [place] 1.015 Urine Protein 100 H Urine Glucose (UA) Normal Urine Ketones Negative Urine Occult Blood 150 H Urine Nitrite Negative Urine Bilirubin Negative Urine Urobilinogen Normal Ur Leukocyte Esterase Negative Urine RBC 0 SEEN Urine WBC 0-5 SEEN Ur Squamous Epith Cells 0 SEEN Urine Bacteria RARE Urine Mucus 0 SEEN 08/21/18 08/21/18 17:35 17:35 WBC RBC Hgb Hct MCV MCH MCHC RDW RDW Differential Plt Count MPV Immature Gran % (Auto) Neut % (Auto) Lymph % (Auto) [place] % (Auto) Eos % (Auto) Baso % (Auto) Absolute Neuts (auto) Absolute Lymphs (auto) Total Counted Differential Comment Platelet Estimate Hypochromasia Anisocytosis PT INR APTT Sodium 133 L Potassium 4.3 Chloride 103 Carbon Dioxide 26.0 Anion Gap 4 L BUN 19 H Creatinine 1.43 H Estim Creat Clear Calc 43.96 Est GFR (MDRD) Af Amer 62 Est GFR (MDRD) Non-Af 51 L BUN/Creatinine Ratio 13.3 Glucose 85 Lactic Acid 1.4 Calcium 8.4 L Total Bilirubin 0.50 AST 15 ALT 21 Alkaline Phosphatase 124 H Total Protein 6.9 Albumin 2.7 L Globulin 4.2 Albumin/Globulin Ratio 0.6 L Urine Color Urine Clarity Urine pH Ur Specific [place] Urine Protein Urine Glucose (UA) Urine Ketones Urine Occult Blood Urine Nitrite Urine Bilirubin Urine Urobilinogen Ur Leukocyte Esterase Urine RBC Urine WBC Ur Squamous Epith Cells Urine Bacteria Urine Mucus Assessment/Plan All Active Problems (Last Reviewed 08/21/18 @ 21:15 by Shaka De La oTrre MD) Cellulitis of right lower extremity (Acute) Type 2 diabetes mellitus with diabetic polyneuropathy (Acute) Malnutrition (Acute) Delayed wound healing (Acute) DM type 2, uncontrolled, with renal complications (Acute) Right foot infection at previous status post transmetatarsal amputation site (Dr. Oliver, 07/17/18) including cellulitis and possible osteomyelitis Diabetes with neuropathy Delayed healing Malnutrition Other comorbidities: CAD, history of acute kidney injury, hypertension, hyperlipidemia I reviewed and discussed his case. It is noted he does not have leukocytosis. His ESR and CRP are pending. I removed his wound VAC and took a deep aerobic and anaerobic and MRSA PCR culture; these results are pending. It is noted he is febrile and has chills. The open aspect of the right transmetatarsal amputation stump site medially was copiously irrigated with a liter of normal saline and was further packed with a saline wet-to-dry with gauze. This bedside irrigation and packing with Dakins solution will be performed twice daily. To discontinue wound VAC use at this time. He is on IV antibiotics of vancomycin and Zosyn. It is noted he was previously on Linezolid at the long term facility which was stopped approximately 4 days ago when he returned home. To continue until culture results yield additional information. I also recommend an infectious disease consultation. His x-rays were reviewed without any acute fractures or dislocations. There is also no soft tissue emphysema, foreign body, or gross osseous destruction appreciated. There is some diminished bone density which may suggest osteomyelitis of the fifth metatarsal, however this does not clinically correlate with the open purulent site. If he demonstrates lack of improvement, an MRI or additional surgical resection may be warranted. To remain nonweightbearing to the right lower extremity with assistive device as needed. I recommend nutritional supplementation and continue proper glycemic control to optimize healing. Medical management and DVT prophylaxis per primary team is greatly appreciated. I will continue to follow closely while in house. Please not hesitate to call if you have any questions. Claritza Contreras DPM, [facility] [phone]
[2018-08-21 21:48] LABS: Erythrocyte Sedimentation Rate 63 mm/hr (0-20)
[2018-08-21 22:46] LABS: Bedside Glucose 98 mg/dL (70-110)
--- NOTE | 2018-08-21 23:10 | PCM.RX.CS ---
Consult Pharmacy has been consulted to manage selected antiobiotic: Vancomycin Type of Consult: New start Suspected Infection: Osteomyelitis Labs: Sodium 133 mmol/L (136-145) L 08/21/18 17:35 Potassium 4.3 mmol/L (3.5-5.1) 08/21/18 17:35 Chloride 103 mmol/L (98-107) 08/21/18 17:35 Carbon Dioxide 26.0 mmol/L (21.0-32.0) 08/21/18 17:35 4 (5-15) L 08/21/18 17:35 BUN 19 mg/dL (7-18) H 08/21/18 17:35 1.43 mg/dL (0.70-1.30) H 08/21/18 17:35 Est GFR (MDRD) Af Amer 62 mL/min (>60) 08/21/18 17:35 Est GFR (MDRD) Non-Af 51 mL/min (>60) L 08/21/18 17:35 13.3 RATIO (10-20) 08/21/18 17:35 Glucose 85 mg/dL (74-106) 08/21/18 17:35 Weight used for dosin.5 kg Estimated Creatinine Clearance: 48.1 Goal Trough: 15-20 mcg/mL Pharmacy Plan for Drug Dosing: Pharmacy Service will continue to monitor and adjust dosing as required. Medications Vancomycin HCl 750 mg/ Sodium (Chloride) 265 mls @ 250 mls/hr IV Q12H MARILU Discontinued Medications Vancomycin HCl 1,500 mg/ (Sodium Chloride) 530 mls @ 250 mls/hr IV X1 ONE Stop: 08/21/18 21:07 Last Admin: 08/21/18 19:40 Dose: 250 mls/hr Documented by: Follow-Up Labs: Trough Vancomycin Labs to be done on [date and time ordered]: 08/23 @ 0700
[2018-08-21] MEDS: Doxazosin 4 MG Tablet 2 MG PO (23:11)
[2018-08-21] MEDS: Magnesium Oxide 400 MG Tablet PO (23:11)
[2018-08-21] MEDS: 0.9% NaCl Peripheral Flush Adult/Peds IV (23:20)
[2018-08-22 00:06] LABS: Probe Check PASS; Staph aureus DNA By PCR POSITIVE (Negative)
[2018-08-22 00:19] LABS: M R Staph aureus DNA By PCR POSITIVE (Negative)
[2018-08-22 03:13] VITALS: BP 125/53; PULSE 72; RESP 18; TEMP 37; O2SAT 98
[2018-08-22] MEDS: 0.9% NaCl Peripheral Flush Adult/Peds IV (03:22)
[2018-08-22 03:36] LABS: Bedside Glucose 143 mg/dL (70-110)
[2018-08-22 06:51] LABS: Bedside Glucose 131 mg/dL (70-110)
[2018-08-22 07:29] LABS: Absolute Lymphocyte Count 0.42 X10^3/ul (0.83-4.51); Absolute Neutrophil Count 4.3 X10^3/uL (2.0-7.7); Basophil# 0.01 X10^3/uL; Basophil% 0.2 % (0-1); Eosinophil# 0.02 X10^3/uL; Eosinophils% 0.4 % (0-5); Hematocrit 26.2 % (40-54); Hemoglobin 8.7 g/dl (13.0-16.5); Lymphocyte # 0.42 X10^3/ul (4.0); Lymphocyte % 8.1 % (19-41); Mean Corp Hgb Conc 33.2 g/gl (32-36); Mean Corpuscular Hgb 27.8 pg (27.0-32.0); Mean Corpuscular Volume 83.7 fL (80-94); Mean Platelet Vol. 9.6 fl (6.2-12.0); Monocyte# 0.42 X10^3/uL; Monocyte% 8.1 % (0-10); Neutrophil # 4.33 X10^3/uL (2.7-7.7); Platelet Count 215 K/mm3 (150-450); RBC Distribution Width CV 13.5 % (11.6-14.6); RBC Distribution Width SD 39.3 fl (35.1-43.9); Red Blood Count 3.13 M/mm3 (4.6-6.2); White Blood Count 5.2 K/mm3 (4.4-11.0)
[2018-08-22 07:30] LABS: Differential Indicated SCAN CRITERIA MET; POSITIVE COUNT NO; POSITIVE DIFFERENTIAL YES; POSITIVE MORPHOLOGY NO
[2018-08-22 07:43] LABS: Anion Gap 6 (5-15); BUN 23 mg/dL (7-18); BUN/Creat Ratio 14.8 RATIO (10-20); Calcium,Total 8.2 mg/dL (8.5-10.1); Chloride 106 mmol/L (98-107); Creatinine, Serum 1.55 mg/dL (0.70-1.30); EST Glomerular Filtration Rate 46 mL/min (>60); Est Glom Filt Rate - Afr Amer 56 mL/min (>60); Estimated Creatinine Clearance 40.56 ml/min; Glucose 136 mg/dL (74-106); Potassium 4.1 mmol/L (3.5-5.1); Sodium Level 136 mmol/L (136-145)
[2018-08-22 08:00] LABS: Differential Comment SCANNED; Hypochromasia 2+
--- NOTE | 2018-08-22 09:00 | PCM.PN.HOSP ---
Patient Problems: Active and Suspected Problems (Last Reviewed 08/21/18 @ 21:15 by Shaka De La Torre MD) Type 2 diabetes mellitus with diabetic polyneuropathy (Acute) Malnutrition (Acute) Delayed wound healing (Acute) Osteomyelitis (Suspected) Subjective: The patient has history of diabetes with diabetic neuropathy was admitted for right foot stump pain and swelling and redness. Patient had temperature 102.4 last evening but afebrile afterwards. Patient was on antibiotic linezolid 600 mg twice daily and completed on 08/11. Follows Dr. Oliver. Patient had bedside wound debridement and dressing by experience specialist. Vitals/I&O's: Vital Signs Temp Pulse Resp BP Pulse Ox 98.6 F 72 18 125/53 H 98 08/22/18 03:13 08/22/18 03:13 08/22/18 03:13 08/22/18 03:13 08/22/18 03:13 Oxygen Delivery Method Room Air Weight: 199 lb 8 oz Body Mass Index (BMI) 28.6 Finger Stick Blood Glucose 89 Intake and Output for Last 24 Hours 08/20/18 08/21/18 08/22/18 23:59 23:59 23:59 Intake Total 400 / 400 Balance 400 / 400 General: Alert, Oriented x3, Cooperative HEENT: Atraumatic, PERRLA, EOMI, Normocephalic Neck: Supple, No JVD, Negative Carotid Bruits Lungs: Clear to auscultation, Normal air movement, No rhonchi, No wheeze, No rales Cardiovascular: Regular rate, Regular Rhythm, Normal S1, Normal S2, No murmurs Abdomen: Bowel Sounds Present, Soft, Non Tender Extremities: No edema, Capillary Refill Less than 3 Seconds Skin: Ulcer/ Wound - Right foot TMA stump ulcer on medial side status post irrigation and dressing Musculoskeletal: No Tenderness to Palpation of Joints or Extremities, Tenderness - Right foot Neurological: Cranial nerves II-XII grossly intact, - - Diabetic neuropathy Psych/Mental Status: Normal Affect, Appropriate Laboratory Results 08/21/18 17:25: Urine Color Yellow, Urine Clarity Clear, Urine pH 5.0, Ur Specific [place] 1.015, Urine Protein 100 H, Urine Glucose (UA) Normal, Urine Ketones Negative, Urine Occult Blood 150 H, Urine Nitrite Negative, Urine Bilirubin Negative, Urine Urobilinogen Normal, Ur Leukocyte Esterase Negative, Urine RBC 0 SEEN, Urine WBC 0-5 SEEN, Ur Squamous Epith Cells 0 SEEN, Urine Bacteria RARE, Urine Mucus 0 SEEN 08/21/18 17:35: WBC 7.3, RBC 3.16 L, Hgb 7.3 L, Hct 26.5 L, MCV 83.9, MCH 23.1 L, MCHC 27.5 L, RDW 13.4, RDW Differential 38.8, Plt Count 218, MPV 9.7, Immature Gran % (Auto) 0.300, Neut % (Auto) 83.3 H, Lymph % (Auto) 7.5 L, [place] % (Auto) 8.5, Eos % (Auto) 0.1, Baso % (Auto) 0.3, Absolute Neuts (auto) 6.1, Absolute Lymphs (auto) 0.55 L, Total Counted Not Reportable, Differential Comment SEE COMMENT, Platelet Estimate ADEQUATE, Hypochromasia 1+, Anisocytosis RARE 08/21/18 17:35: PT 15.5 H, INR 1.3, APTT 38.3 H 08/21/18 17:35: Sodium 133 L, Potassium 4.3, Chloride 103, Carbon Dioxide 26.0, Anion Gap 4 L, BUN 19 H, Creatinine 1.43 H, Estim Creat Clear Calc 43.96, Est GFR (MDRD) Af Amer 62, Est GFR (MDRD) Non-Af 51 L, BUN/Creatinine Ratio 13.3, Glucose 85, Calcium 8.4 L, Total Bilirubin 0.50, AST 15, ALT 21, Alkaline Phosphatase 124 H, Total Protein 6.9, Albumin 2.7 L, Globulin 4.2, Albumin/Globulin Ratio 0.6 L 08/21/18 17:35: Lactic Acid 1.4 08/21/18 17:35: ESR 63 H 08/21/18 17:35: ESR Cancelled 08/21/18 17:35: C-React Prot Ext Range 189.00 H 08/21/18 22:30: S.aureus Protein A PCR POSITIVE H, MRSA (PCR) POSITIVE H 08/21/18 22:40: POC Glucose 98 08/22/18 03:17: POC Glucose 143 H 08/22/18 06:35: WBC 5.2, RBC 3.13 L, Hgb 8.7 L, Hct 26.2 L, MCV 83.7, MCH 27.8, MCHC 33.2, RDW 13.5, RDW Differential 39.3, Plt Count 215, MPV 9.6, Immature Gran % (Auto) 0.200, Neut % (Auto) 83.0 H, Lymph % (Auto) 8.1 L, [place] % (Auto) 8.1, Eos % (Auto) 0.4, Baso % (Auto) 0.2, Absolute Neuts (auto) 4.3, Absolute Lymphs (auto) 0.42 L, Total Counted Not Reportable, Differential Comment SCANNED, Hypochromasia 2+ 08/22/18 06:35: Sodium 136, Potassium 4.1, Chloride 106, Carbon Dioxide 24.0, Anion Gap 6, BUN 23 H, Creatinine 1.55 H, Estim Creat Clear Calc 40.56, Est GFR (MDRD) Af Amer 56 L, Est GFR (MDRD) Non-Af 46 L, BUN/Creatinine Ratio 14.8, Glucose 136 H, Calcium 8.2 L 08/22/18 06:43: POC Glucose 131 H Current Medications Acetaminophen (Tylenol) 650 mg PO Q6H PRN PRN PRN Reason: Mild Pain (1-3)/Temp > 100.7 F Aspirin (Ecotrin) 81 mg PO DAILY [facility] Clopidogrel Bisulfate (Plavix) 37.5 mg PO DAILY [facility] Dextrose (D50w Syringe) 0 gm IV X1 PRN; Protocol PRN Reason: Hypoglycemia Doxazosin Mesylate (Cardura) 2 mg PO QHS [facility] Last Admin: 08/21/18 23:11 Dose: 2 mg Documented by: Enoxaparin Sodium (Lovenox) 40 mg SC DAILY@1000 [facility] Glucagon () 1 mg IM .X1 PRN PRN Reason: Hypoglycemia Vancomycin IV Pharmacy to Dose (1,250 ea/ Sodium Chloride) 500 mls @ 250 mls/hr IV Q24 PRN; Protocol Piperacillin Sod/Tazobactam (Sod 3.375 gm/ Sodium Chloride) 50 mls @ 12.5 mls/hr IV Q8 [facility] Last Admin: 08/22/18 03:20 Dose: 12.5 mls/hr Documented by: Vancomycin HCl 750 mg/ Sodium (Chloride) 265 mls @ 250 mls/hr IV Q12H [facility] Last Admin: 08/22/18 08:20 Dose: 250 mls/hr Documented by: Insulin Human Lispro (Humalog Kwikpen (Bkc)) 0 unit SC ACHS & 3AM [facility]; Protocol Last Admin: 08/22/18 06:47 Dose: Not Given Documented by: Losartan Potassium (Cozaar) 50 mg PO DAILY [facility] Magnesium Oxide (Mag-Ox 400) 400 mg PO BID [facility] Last Admin: 08/21/18 23:11 Dose: 400 mg Documented by: Melatonin (Melatonin) 3 mg PO QHS PRN PRN PRN Reason: INSOMNIA Metoprolol Succinate (Toprol Xl (Beta Carloz)) 25 mg PO DAILY [facility] Morphine Sulfate () 2 mg IV Q3H PRN PRN PRN Reason: Severe pain (7-10/10) Non-Formulary Medication (Amiloride) 5 mg PO BID [facility] Nutritional Formula (Silviano - Callahan Flavor) [facility] Last Admin: 08/22/18 08:25 Dose: 1 packet Documented by: Nutritional Formula (Lactose Free) (Glucerna Shake) 120 ml PO 4X/DAY [facility] Ondansetron HCl (Zofran) 4 mg IV Q8H PRN PRN PRN Reason: NAUSEA/VOMITING Oxycodone HCl (Oxyir) 5 mg PO Q4H PRN PRN PRN Reason: Moderate Pain (4-6/10) Sodium Chloride () 5 - 15 ml IV UD PRN PRN Reason: SALINE FLUSH Last Admin: 08/22/18 03:22 Dose: 10 ml Documented by: Medical Necessity - Tobacco Use Smoking Status: Never smoker Tobacco Use: Non-smoker Assessment/Plan All Active Problems (Last Reviewed 08/21/18 @ 21:15 by Shaka De La Torre MD) Cellulitis of right lower extremity (Acute) Type 2 diabetes mellitus with diabetic polyneuropathy (Acute) Malnutrition (Acute) Delayed wound healing (Acute) DM type 2, uncontrolled, with renal complications (Acute) The patient is a 78 year old M with a significant history of Diabetes mellitus, HTN, history of osteomyelitis with 3 amputation, on 07/17/2018 who reportedly completed antibiotics linezolid about 4 days ago but home medications shows stopped it 08/11/2018 admitted with right foot stump redness, pain and ulcer on the medial side suggestive of cellulitis with osteomyelitis. Acute osteomyelitis of foot of R stump. X-ray of right foot showed new erosions in the proximal fifth metatarsal which is suspicious for osteomyelitis. Patient had irrigation and dressing by experience specialist. If no further improvement clinically, experience specialist recommended MRI. Wound culture shows staph aureus, MRSA. PCR is positive of MRSA. Patient received vancomycin and Zosyn in the emergency department. Vancomycin and Zosyn continued. ESR and CRP are elevated. CAD status post CABG Aspirin and clopidogrel continued. On home PCSK 9 inhibitor (Alirocumab (Praluent Pen)) that patient takes every 2 weeks. last time he took it was about 7 weeks ago. Hypertension Losartan; metoprolol and amiloride continued. Trend blood pressure and adjust blood pressure medication. Diabetes mellitus type II: Glucose 85 in BMP. As per experience specialist most, his blood sugar was in 200 and SNF but he had blood sugar is 98-1 50, last 2231. On Accu-Chek and titrate insulin accordingly. DVT prophylaxis Subcutaneous Lovenox ordered. Microbiology Past 72 Hours 08/21/18 17:35 Blood Culture (Wb) - Anticubital Left Bacteria Detection (PCR) - Final mecA Resistance Marker Staphylococcus aureus 08/21/18 17:35 Blood Culture (Wb) - Anticubital Left Blood Culture - Preliminary 08/21/18 22:30 Wound - Aerobic & Anaerobic Swabs Gram Stain - Final 08/21/18 17:45 Wound - Right Foot Gram Stain - Final 08/21/18 17:50 Blood Culture (Wb) - Anticubital Right Blood Culture - Preliminary Laboratory Results 08/21/18 17:25: Urine Color Yellow, Urine Clarity Clear, Urine pH 5.0, Ur Specific [place] 1.015, Urine Protein 100 H, Urine Glucose (UA) Normal, Urine Ketones Negative, Urine Occult Blood 150 H, Urine Nitrite Negative, Urine Bilirubin Negative, Urine Urobilinogen Normal, Ur Leukocyte Esterase Negative, Urine RBC 0 SEEN, Urine WBC 0-5 SEEN, Ur Squamous Epith Cells 0 SEEN, Urine Bacteria RARE, Urine Mucus 0 SEEN 08/21/18 17:35: WBC 7.3, RBC 3.16 L, Hgb 7.3 L, Hct 26.5 L, MCV 83.9, MCH 23.1 L, MCHC 27.5 L, RDW 13.4, RDW Differential 38.8, Plt Count 218, MPV 9.7, Immature Gran % (Auto) 0.300, Neut % (Auto) 83.3 H, Lymph % (Auto) 7.5 L, [place] % (Auto) 8.5, Eos % (Auto) 0.1, Baso % (Auto) 0.3, Absolute Neuts (auto) 6.1, Absolute Lymphs (auto) 0.55 L, Total Counted Not Reportable, Differential Comment SEE COMMENT, Platelet Estimate ADEQUATE, Hypochromasia 1+, Anisocytosis RARE 08/21/18 17:35: PT 15.5 H, INR 1.3, APTT 38.3 H 08/21/18 17:35: Sodium 133 L, Potassium 4.3, Chloride 103, Carbon Dioxide 26.0, Anion Gap 4 L, BUN 19 H, Creatinine 1.43 H, Estim Creat Clear Calc 43.96, Est GFR (MDRD) Af Amer 62, Est GFR (MDRD) Non-Af 51 L, BUN/Creatinine Ratio 13.3, Glucose 85, Calcium 8.4 L, Total Bilirubin 0.50, AST 15, ALT 21, Alkaline Phosphatase 124 H, Total Protein 6.9, Albumin 2.7 L, Globulin 4.2, Albumin/Globulin Ratio 0.6 L 08/21/18 17:35: Lactic Acid 1.4 08/21/18 17:35: ESR 63 H 08/21/18 17:35: ESR Cancelled 08/21/18 17:35: C-React Prot Ext Range 189.00 H 08/21/18 22:30: S.aureus Protein A PCR POSITIVE H, MRSA (PCR) POSITIVE H 08/21/18 22:40: POC Glucose 98 08/22/18 03:17: POC Glucose 143 H 08/22/18 06:35: WBC 5.2, RBC 3.13 L, Hgb 8.7 L, Hct 26.2 L, MCV 83.7, MCH 27.8, MCHC 33.2, RDW 13.5, RDW Differential 39.3, Plt Count 215, MPV 9.6, Immature Gran % (Auto) 0.200, Neut % (Auto) 83.0 H, Lymph % (Auto) 8.1 L, [place] % (Auto) 8.1, Eos % (Auto) 0.4, Baso % (Auto) 0.2, Absolute Neuts (auto) 4.3, Absolute Lymphs (auto) 0.42 L, Total Counted Not Reportable, Differential Comment SCANNED, Hypochromasia 2+ 08/22/18 06:35: Sodium 136, Potassium 4.1, Chloride 106, Carbon Dioxide 24.0, Anion Gap 6, BUN 23 H, Creatinine 1.55 H, Estim Creat Clear Calc 40.56, Est GFR (MDRD) Af Amer 56 L, Est GFR (MDRD) Non-Af 46 L, BUN/Creatinine Ratio 14.8, Glucose 136 H, Calcium 8.2 L 08/22/18 06:43: POC Glucose 131 H 08/22/18 11:35: POC Glucose 232 H Code Visit Inpatient E&M: 25024 Subs Hosp L3
[2018-08-22 09:10] VITALS: BP 119/57; PULSE 80; RESP 14; TEMP 37.2; O2SAT 97
[2018-08-22] MEDS: Aspirin E.C. 81 MG Tablet PO (09:20)
[2018-08-22] MEDS: Losartan Potassium 50 MG Tablet PO (09:20)
[2018-08-22 09:21] VITALS: PULSE 80
[2018-08-22] MEDS: Magnesium Oxide 400 MG Tablet PO ×2 (09:21→22:09)
[2018-08-22] MEDS: Metoprolol(XL)Succ 25 MG Tablet PO (09:21)
[2018-08-22] MEDS: Enoxaparin 40 MG/0.4 ML Syringe SC (09:21)
[2018-08-22] MEDS: Clopidogrel Bisulfate 75 MG Tablet 37.5 MG PO (09:22)
[2018-08-22] MEDS: Insulin Lispro 100 UNIT/ML INSULN.PEN SC ×3 (11:43→22:09)
[2018-08-22 11:45] LABS: Bedside Glucose 232 mg/dL (70-110)
--- NOTE | 2018-08-22 13:07 | NURSING ---
BLOOD CULTURE RESULTS ,MECA RESISTANCE MARKER STAPHYLOCOCCUS AUREUS, TEXTED TO DR LAY
--- NOTE | 2018-08-22 13:18 | CASEMGMT ---
TIFFANY ARREOLA assessment: Face to Face with patient for initial transition planning/care coordination assessment. TIFFANY ARREOLA introduced self and role at [facility], pt voices understanding and consents to assessment at this time. Pt is sitting up in bed in no distress at this time. Pt is A/Ox4 at this time and answers all questions appropriately at this time. Care providers, pharmacy, and demographics verified at this time. PCP: Charleen Specialists: Carlos cardio at [facility] Pharmacy: [facility] Insurance: [employer]/MCR A/B Prescription Benefit: [employer]/MCR Living Will/HPOA: Pt states has LW/HPOA and they are on file at [facility] at this time. Pt states that his , Kassandra Ba, is HPOA. LNOK: Kassandra Ba, Living Arrangements: Pt states lives with in 1 story home and states no concerns at home at this time. Pt is independent with ADL's. Transportation: Pt states drives self and states no transportation concerns at this time. DME/HHC: Pt states has the following DME: crutches, w/c, walkerx3, bilat rails in several areas of home, glucometer, BP cuff, and hoveround. Pt denies need for any further DME at this time. Pt states that his just set up HHC RN thru a company in [place] but he cannot remember the name of company at this time. Pt states has been to [facility] recently. Pt states is unsure of what he will need at discharge. Pt states is retired. Pt states does not smoke or drink ETOH. Pt states no further questions/concerns/needs at this time. CM to follow for possible IV antibx and any further discharge planning/needs. Advised pt to ask for CM if any further questions/concerns/needs arise, voices understanding. Pt Goal: Home w/ HHC [facility] Plan: TBD, pending further testing/bloodwork, consults. [place] TIFFANY ARREOLA
[2018-08-22] MEDS: Glucerna Shake 120 ML LIQUID PO ×2 (14:37→18:28)
[2018-08-22 14:49] VITALS: BP 116/61; PULSE 74; RESP 18; TEMP 37.3; O2SAT 96
--- NOTE | 2018-08-22 16:00 | PN_ITS ---
Patient Problems: Active and Suspected Problems (Last Reviewed 08/21/18 @ 21:15 by Shaka De La Torre MD) Type 2 diabetes mellitus with diabetic polyneuropathy (Acute) Malnutrition (Acute) Delayed wound healing (Acute) Osteomyelitis (Suspected) Subjective: This 78-year-old male with multiple comorbidities was seen bedside today for infected right transmetatarsal amputation stump site. He relates his fever and chills have resolved. He relates he does have some neuropathy pain that comes and goes and shoots up both of his legs. Other than that he denies pain to the surgical site. He denies nausea, vomiting, calf pain, chest pain, shortness of breath. - Physical Exam General: Alert, Oriented x3, Cooperative HEENT: Atraumatic Extremities: No cyanosis, Capillary Refill Less than 3 Seconds, No Calf Tenderness - Negative Ceferino and Sloan sign right lower extremity, Diminished Peripheral Pulses, Edema - Mild right lower extremity foot, - - Transmetatarsal amputation right. Compartments are soft to palpate right leg ankle and foot Skin: Ulcer/ Wound - Transmetatarsal amputation stump site is dehisced and open to the medial aspect with exposed first and second metatarsal bone there is decreased but continued seropurulent drainage coming just locally at this open site. There is no bogginess or fluctuance going into the arch heel or leg. The elena are removed laterally and there is no deep probing down to the surgical site. This is superficially partially open to the dermal layer. There is diffuse hyperpigmentation and erythema to the foot which has receded down from the ankle level. There is continue warmth to the midfoot area and this is slightly decreased compared to yesterday as well. The peripheral skin is hairless and atrophic. There is no deep eschar or necrosis. The exposed bone has white coloration and is firm to touch. There are no other skin discontinuity noted, - - His skin is hairless and atrophic to the entire right lower extremity extending above the knee level Musculoskeletal: No Tenderness to Palpation of Joints or Extremities, Muscle Wasting Neurological: - - Lack of normal epicritic sensation light touch consistent with neuropathy status Psych/Mental Status: Normal Affect, Appropriate Vital Signs Temp Pulse Resp BP Pulse Ox 99.2 F H 74 18 116/61 96 08/22/18 14:49 08/22/18 14:49 08/22/18 14:49 08/22/18 14:49 08/22/18 14:49 Oxygen Delivery Method Room Air Weight: 90.492 kg Body Mass Index (BMI) 28.6 Finger Stick Blood Glucose 89 Intake and Output for Last 24 Hours 08/20/18 08/21/18 08/22/18 23:59 23:59 23:59 Intake Total 1620 / 1620 Balance 1620 / 1620 Microbiology Past 72 Hours 08/21/18 22:30 Gram Stain - Final Wound - Aerobic & Anaerobic Swabs Wound Culture - Preliminary GNR lactose wet machine operator Staphylococcus species 08/21/18 18:28 Urine Culture - Preliminary Urine, Clean Catch Culture exhibits no growth. 08/21/18 17:45 Gram Stain - Final Wound - Right Foot Wound Culture - Preliminary GNR lactose wet machine operator Gram negative robbin Staphylococcus species 08/21/18 17:35 Bacteria Detection (PCR) - Final Blood Culture (Wb) - Anticubital Left mecA Resistance Marker Staphylococcus aureus Blood Culture - Preliminary 08/21/18 17:50 Blood Culture - Preliminary Blood Culture (Wb) - Anticubital Right Laboratory Tests Past 24 Hrs 08/21/18 08/21/18 08/21/18 17:25 17:35 17:35 WBC 7.3 RBC 3.16 L Hgb 7.3 L Hct 26.5 L MCV 83.9 MCH 23.1 L MCHC 27.5 L RDW 13.4 RDW Differential 38.8 Plt Count 218 MPV 9.7 Immature Gran % (Auto) 0.300 Neut % (Auto) 83.3 H Lymph % (Auto) 7.5 L [place] % (Auto) 8.5 Eos % (Auto) 0.1 Baso % (Auto) 0.3 Absolute Neuts (auto) 6.1 Absolute Lymphs (auto) 0.55 L Total Counted Not Reportable Differential Comment SEE COMMENT Platelet Estimate ADEQUATE Hypochromasia 1+ Anisocytosis RARE ESR PT 15.5 H INR 1.3 APTT 38.3 H Sodium Potassium Chloride Carbon Dioxide Anion Gap BUN Creatinine Estim Creat Clear Calc Est GFR (MDRD) Af Amer Est GFR (MDRD) Non-Af BUN/Creatinine Ratio Glucose Lactic Acid Calcium Total Bilirubin AST ALT Alkaline Phosphatase C-React Prot Ext Range Total Protein Albumin Globulin Albumin/Globulin Ratio Urine Color Yellow Urine Clarity Clear Urine pH 5.0 Ur Specific [place] 1.015 Urine Protein 100 H Urine Glucose (UA) Normal Urine Ketones Negative Urine Occult Blood 150 H Urine Nitrite Negative Urine Bilirubin Negative Urine Urobilinogen Normal Ur Leukocyte Esterase Negative Urine RBC 0 SEEN Urine WBC 0-5 SEEN Ur Squamous Epith Cells 0 SEEN Urine Bacteria RARE Urine Mucus 0 SEEN S.aureus Protein A PCR MRSA (PCR) 08/21/18 08/21/18 08/21/18 17:35 17:35 17:35 WBC RBC Hgb Hct MCV MCH MCHC RDW RDW Differential Plt Count MPV Immature Gran % (Auto) Neut % (Auto) Lymph % (Auto) [place] % (Auto) Eos % (Auto) Baso % (Auto) Absolute Neuts (auto) Absolute Lymphs (auto) Total Counted Differential Comment Platelet Estimate Hypochromasia Anisocytosis ESR 63 H PT INR APTT Sodium 133 L Potassium 4.3 Chloride 103 Carbon Dioxide 26.0 Anion Gap 4 L BUN 19 H Creatinine 1.43 H Estim Creat Clear Calc 43.96 Est GFR (MDRD) Af Amer 62 Est GFR (MDRD) Non-Af 51 L BUN/Creatinine Ratio 13.3 Glucose 85 Lactic Acid 1.4 Calcium 8.4 L Total Bilirubin 0.50 AST 15 ALT 21 Alkaline Phosphatase 124 H C-React Prot Ext Range Total Protein 6.9 Albumin 2.7 L Globulin 4.2 Albumin/Globulin Ratio 0.6 L Urine Color Urine Clarity Urine pH Ur Specific [place] Urine Protein Urine Glucose (UA) Urine Ketones Urine Occult Blood Urine Nitrite Urine Bilirubin Urine Urobilinogen Ur Leukocyte Esterase Urine RBC Urine WBC Ur Squamous Epith Cells Urine Bacteria Urine Mucus S.aureus Protein A PCR MRSA (PCR) 08/21/18 08/21/18 08/21/18 17:35 17:35 22:30 WBC RBC Hgb Hct MCV MCH MCHC RDW RDW Differential Plt Count MPV Immature Gran % (Auto) Neut % (Auto) Lymph % (Auto) [place] % (Auto) Eos % (Auto) Baso % (Auto) Absolute Neuts (auto) Absolute Lymphs (auto) Total Counted Differential Comment Platelet Estimate Hypochromasia Anisocytosis ESR Cancelled PT INR APTT Sodium Potassium Chloride Carbon Dioxide Anion Gap BUN Creatinine Estim Creat Clear Calc Est GFR (MDRD) Af Amer Est GFR (MDRD) Non-Af BUN/Creatinine Ratio Glucose Lactic Acid Calcium Total Bilirubin AST ALT Alkaline Phosphatase C-React Prot Ext Range 189.00 H Total Protein Albumin Globulin Albumin/Globulin Ratio Urine Color Urine Clarity Urine pH Ur Specific [place] Urine Protein Urine Glucose (UA) Urine Ketones Urine Occult Blood Urine Nitrite Urine Bilirubin Urine Urobilinogen Ur Leukocyte Esterase Urine RBC Urine WBC Ur Squamous Epith Cells Urine Bacteria Urine Mucus S.aureus Protein A PCR POSITIVE H MRSA (PCR) POSITIVE H 08/22/18 08/22/18 06:35 06:35 WBC 5.2 RBC 3.13 L Hgb 8.7 L Hct 26.2 L MCV 83.7 MCH 27.8 MCHC 33.2 RDW 13.5 RDW Differential 39.3 Plt Count 215 MPV 9.6 Immature Gran % (Auto) 0.200 Neut % (Auto) 83.0 H Lymph % (Auto) 8.1 L [place] % (Auto) 8.1 Eos % (Auto) 0.4 Baso % (Auto) 0.2 Absolute Neuts (auto) 4.3 Absolute Lymphs (auto) 0.42 L Total Counted Not Reportable Differential Comment SCANNED Platelet Estimate Hypochromasia 2+ Anisocytosis ESR PT INR APTT Sodium 136 Potassium 4.1 Chloride 106 Carbon Dioxide 24.0 Anion Gap 6 BUN 23 H Creatinine 1.55 H Estim Creat Clear Calc 40.56 Est GFR (MDRD) Af Amer 56 L Est GFR (MDRD) Non-Af 46 L BUN/Creatinine Ratio 14.8 Glucose 136 H Lactic Acid Calcium 8.2 L Total Bilirubin AST ALT Alkaline Phosphatase C-React Prot Ext Range Total Protein Albumin Globulin Albumin/Globulin Ratio Urine Color Urine Clarity Urine pH Ur Specific [place] Urine Protein Urine Glucose (UA) Urine Ketones Urine Occult Blood Urine Nitrite Urine Bilirubin Urine Urobilinogen Ur Leukocyte Esterase Urine RBC Urine WBC Ur Squamous Epith Cells Urine Bacteria Urine Mucus S.aureus Protein A PCR MRSA (PCR) POC Glucose 08/22/18 08/22/18 08/22/18 11:35 06:43 03:17 POC Glucose 232 H 131 H 143 H 08/21/18 22:40 POC Glucose 98 Medical Necessity - Tobacco Use Smoking Status: Never smoker Tobacco Use: Non-smoker Assessment/Plan All Active Problems (Last Reviewed 08/21/18 @ 21:15 by Shaka De La Torre MD) Cellulitis of right lower extremity (Acute) Type 2 diabetes mellitus with diabetic polyneuropathy (Acute) Malnutrition (Acute) Delayed wound healing (Acute) DM type 2, uncontrolled, with renal complications (Acute) Right foot infection at previous status post transmetatarsal amputation site (Dr. Oliver, 07/17/18) including cellulitis and possible osteomyelitis Positive blood culture Diabetes with neuropathy Delayed healing Malnutrition Other comorbidities: CAD, history of acute kidney injury, hypertension, hyperlipidemia I reviewed and discussed his case. It is noted he does not have leukocytosis: WBC 5.2. His ESR 63 and CRP 189. 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 Urine culture does not have growth so far. Blood culture is positive for mecA resistance marker, staphylococcus aureus. He is on IV antibiotics of vancomycin and Zosyn; to continue. Infectious disease is also on consultation and appreciated. There is some mild improvement from yesterday, however seropurulent drainage is still expressed from the wound. This will be monitored closely this evening and again tomorrow morning. If lack of progress is continued I recommend surgical incision and an additional debridement and drainage. I recommend he is n.p.o. at midnight in preparation for this possibility. His x-rays were reviewed without osseous destruction or soft tissue emphysema at the medial transmetatarsal amputation stump site which is where the wound is located. Advanced imaging will be considered if further abscess is suspected. This test may be of limited help otherwise and is likely to have increased intensity due to the recent surgical intervention, therefore it is not ordered at this time. The open aspect of the right transmetatarsal amputation stump site medially was copiously irrigated with a liter of normal saline and was further packed with a saline wet-to-dry with gauze. This bedside irrigation and packing with Dakins solution will be performed again this evening. To remain nonweightbearing to the right lower extremity with assistive device as needed. I recommend nutritional supplementation and continue proper glycemic control to optimize healing. His recent noninvasive vascular studies were also reviewed with a right ANTONIETTA of 1.25 and triphasic waveforms to the right ankle level. Although this is falling within the normal parameters, his clinical appearance is consistent with this vascular qualities including delayed healing and dry atrophic hairless skin. I do recommend an inpatient versus outpatient vascular surgery referral within the next week. The patient is amenable to proceed with this. Medical management and DVT prophylaxis per primary team is greatly appreciated. I will continue to follow closely while in house and have answered his questions this afternoon. Please not hesitate to call if you have any questions. Claritza Contreras DPM, [facility] [phone]
[2018-08-22 16:40] LABS: Bedside Glucose 232 mg/dL (70-110)
[2018-08-22] MEDS: AMILORIDE HCL 5 MG TABLET PO (18:28)
[2018-08-22 20:44] VITALS: BP 109/59; PULSE 66; RESP 18; TEMP 36.8; O2SAT 97
[2018-08-22] MEDS: Doxazosin 4 MG Tablet 2 MG PO (22:09)
[2018-08-22 22:35] LABS: Bedside Glucose 215 mg/dL (70-110)
[2018-08-23] VITALS (12 sets, daily range): BP systolic 98–136; BP diastolic 46–72; PULSE 52–76; RESP 16–18; TEMP 35.8–37.3; O2SAT 95–100; BMI 28.6; BMI 32.3
[2018-08-23] MEDS: Insulin Lispro 100 UNIT/ML INSULN.PEN SC ×4 (03:03→21:25)
[2018-08-23 03:15] LABS: Bedside Glucose 172 mg/dL (70-110)
[2018-08-23 06:56] LABS: Bedside Glucose 153 mg/dL (70-110)
[2018-08-23] MEDS: 0.9% NaCl Peripheral Flush Adult/Peds IV (07:00)
--- NOTE | 2018-08-23 07:11 | PCM.PROGNOTE ---
Patient Problems: Active and Suspected Problems (Last Reviewed 08/21/18 @ 21:15 by Shaka De La Torre MD) Type 2 diabetes mellitus with diabetic polyneuropathy (Acute) Malnutrition (Acute) Delayed wound healing (Acute) Osteomyelitis (Suspected) Subjective: This 78-year-old male was seen bedside today for infected right transmetatarsal amputation stump site. He denies foot pain, fever, chills, nausea, vomiting, calf pain, chest pain, shortness of breath. He relates he has diarrhea and loss of taste. - Physical Exam General: Alert, Oriented x3, Cooperative Extremities: Capillary Refill Less than 3 Seconds - dorsal and plantar transmetatarsal amputation stump site., No Calf Tenderness - negative delon and arana right. compartments soft right lower extremity, Diminished Peripheral Pulses, Edema - mild Skin: Ulcer/ Wound - sero-purulent drainage is mildly continued. The odor is decreased. The wound bed continues to remain nonviable with exposed first and second metatarsals. The erythema continues to recede in intensity and location. The warmth has also decreased. Musculoskeletal: No Tenderness to Palpation of Joints or Extremities, Muscle Wasting Neurological: - - Lack of normal epicritic sensation consistent with neuropathy to light touch Psych/Mental Status: Normal Affect, Appropriate Vital Signs Temp Pulse Resp BP Pulse Ox 99.1 F 64 16 98/46 L 96 08/23/18 02:44 08/23/18 02:44 08/23/18 02:44 08/23/18 02:44 08/23/18 02:44 Oxygen Delivery Method Room Air Weight: 90.5 kg Body Mass Index (BMI) 28.6 Finger Stick Blood Glucose 89 Intake and Output for Last 24 Hours 08/21/18 08/22/18 08/23/18 23:59 23:59 23:59 Intake Total 1620 / 2850 1304 / 1304 Balance 1620 / 2850 1304 / 1304 Microbiology Past 72 Hours 08/21/18 22:30 Gram Stain - Final Wound - Aerobic & Anaerobic Swabs Wound Culture - Preliminary GNR lactose per diem Staphylococcus species 08/21/18 18:28 Urine Culture - Preliminary Urine, Clean Catch Culture exhibits no growth. 08/21/18 17:45 Gram Stain - Final Wound - Right Foot Wound Culture - Preliminary GNR lactose per diem Gram negative robbin Staphylococcus species 08/21/18 17:35 Bacteria Detection (PCR) - Final Blood Culture (Wb) - Anticubital Left mecA Resistance Marker Staphylococcus aureus Blood Culture - Preliminary 08/21/18 17:50 Blood Culture - Preliminary Blood Culture (Wb) - Anticubital Right Laboratory Tests Past 24 Hrs 08/22/18 08/22/18 06:35 06:35 WBC 5.2 RBC 3.13 L Hgb 8.7 L Hct 26.2 L MCV 83.7 MCH 27.8 MCHC 33.2 RDW 13.5 RDW Differential 39.3 Plt Count 215 MPV 9.6 Immature Gran % (Auto) 0.200 Neut % (Auto) 83.0 H Lymph % (Auto) 8.1 L [place] % (Auto) 8.1 Eos % (Auto) 0.4 Baso % (Auto) 0.2 Absolute Neuts (auto) 4.3 Absolute Lymphs (auto) 0.42 L Total Counted Not Reportable Differential Comment SCANNED Hypochromasia 2+ Sodium 136 Potassium 4.1 Chloride 106 Carbon Dioxide 24.0 Anion Gap 6 BUN 23 H Creatinine 1.55 H Estim Creat Clear Calc 40.56 Est GFR (MDRD) Af Amer 56 L Est GFR (MDRD) Non-Af 46 L BUN/Creatinine Ratio 14.8 Glucose 136 H Calcium 8.2 L POC Glucose 08/23/18 08/23/18 08/22/18 06:36 03:01 22:07 POC Glucose 153 H 172 H 215 H 08/22/18 08/22/18 16:33 11:35 POC Glucose 232 H 232 H Medical Necessity - Tobacco Use Smoking Status: Never smoker Tobacco Use: Non-smoker Assessment/Plan All Active Problems (Last Reviewed 08/21/18 @ 21:15 by Shaka De La Torre MD) Cellulitis of right lower extremity (Acute) Type 2 diabetes mellitus with diabetic polyneuropathy (Acute) Malnutrition (Acute) Delayed wound healing (Acute) DM type 2, uncontrolled, with renal complications (Acute) Right foot infection at previous status post transmetatarsal amputation site (Dr. Oliver, 07/17/18) including cellulitis and possible osteomyelitis Positive blood culture Diabetes with neuropathy Delayed healing Malnutrition Other comorbidities: CAD, history of acute kidney injury, hypertension, hyperlipidemia I reviewed and discussed his case. It is noted he does not have leukocytosis: WBC 5.5 even though he presents with a limb threatening infection and bacteremia. His ESR 63 and CRP 189. His vitals are stable. Wound cultures were reviewed with staphylococcus species including positive MRSA PCR, gram negative robbin lactose per diem. Urine culture does not have growth so far. Blood culture is positive. He is on IV antibiotics of vancomycin and Zosyn; to continue. Infectious disease is also on consultation and appreciated. There is some mild improvement from yesterday, however seropurulent drainage is still expressed from the wound. A new dressing was applied. At this time, I recommend surgical incision of non viable soft tissue and bone with additional debridement and drainage. He is NPO and his lovenox was held overnight. The preoperative indication, planned procedure, possible infiltrate, risks, complications, anticipated healing time and management were discussed in detail the patient. He understands and elects to proceed at this time. He understands risks and complications include but are not limited to following: Pain, swelling, scarring, continued infection, delayed or nonhealing, loss of limb, function, life, allergic reaction, blood clot. No guarantees were made. Answered his questions. The goal of the surgery is to resect infected tissue. The plan is to have partial closure at this site and the patient understands this will likely be a staged procedure. The surgical consent was signed for right foot debridement of nonviable soft tissue and bone with incision and drainage. The tentative time for surgery is 9 AM. This plan was discussed with hospitalist yesterday evening. He will be monitored post operative for clinical infection resolution and for medical stability. I will discuss his reported diarrhea with hospitalist service in which further work-up is likely warranted. A C. difficile test will be considered. His lack of taste is also noted and may be a side effect from antibiotics. The patient was reassured as we get additional culture results and some clinical improvement, antibiotic alteration will be considered. We discussed the comprehensive limb salvage plan and he understands there are benefits and risks associated with each treatment plan. Claritza Contreras DPM, [facility] [phone]
[2018-08-23] MEDS: 0.9% NaCl IVPB Med Flush (250 mL) 15 ML IV (07:15)
[2018-08-23 07:46] LABS: Absolute Lymphocyte Count 1.06 X10^3/ul (0.83-4.51); Absolute Neutrophil Count 3.4 X10^3/uL (2.0-7.7); Basophil# 0.02 X10^3/uL; Basophil% 0.4 % (0-1); Eosinophils% 3.7 % (0-5); Hematocrit 26.6 % (40-54); Hemoglobin 8.6 g/dl (13.0-16.5); Lymphocyte # 1.06 X10^3/ul (4.0); Lymphocyte % 19.4 % (19-41); Mean Corp Hgb Conc 32.3 g/gl (32-36); Mean Corpuscular Volume 83.6 fL (80-94); Mean Platelet Vol. 9.5 fl (6.2-12.0); Monocyte# 0.72 X10^3/uL; Monocyte% 13.2 % (0-10); Neutrophil # 3.44 X10^3/uL (2.7-7.7); Neutrophil % 62.9 % (47-70); Platelet Count 273 K/mm3 (150-450); RBC Distribution Width CV 13.7 % (11.6-14.6); RBC Distribution Width SD 39.6 fl (35.1-43.9); Red Blood Count 3.18 M/mm3 (4.6-6.2); White Blood Count 5.5 K/mm3 (4.4-11.0)
[2018-08-23 07:47] LABS: POSITIVE COUNT NO; POSITIVE DIFFERENTIAL NO; POSITIVE MORPHOLOGY NO
[2018-08-23 08:05] LABS: Anion Gap 7 (5-15); BUN 22 mg/dL (7-18); BUN/Creat Ratio 15.5 RATIO (10-20); Calcium,Total 8.3 mg/dL (8.5-10.1); Chloride 107 mmol/L (98-107); Creatinine, Serum 1.42 mg/dL (0.70-1.30); EST Glomerular Filtration Rate 51 mL/min (>60); Est Glom Filt Rate - Afr Amer 62 mL/min (>60); Estimated Creatinine Clearance 44.27 ml/min; Glucose 148 mg/dL (74-106); Potassium 3.9 mmol/L (3.5-5.1); Sodium Level 139 mmol/L (136-145); Vancomycin, Trough Level 14.3 ug/mL (5.0-15.0)
--- NOTE | 2018-08-23 09:00 | PCM.RX.CS ---
Consult Pharmacy has been consulted to manage selected antiobiotic: Vancomycin Type of Consult: Follow-up Suspected Infection: Skin/Soft tissue, Osteomyelitis Prior Doses of Antibiotics Received/Current Regimen: Currently on 750mg IV q12h Labs: Sodium 139 mmol/L (136-145) 08/23/18 07:15 Potassium 3.9 mmol/L (3.5-5.1) 08/23/18 07:15 Chloride 107 mmol/L (98-107) 08/23/18 07:15 Carbon Dioxide 25.0 mmol/L (21.0-32.0) 08/23/18 07:15 7 (5-15) 08/23/18 07:15 BUN 22 mg/dL (7-18) H 08/23/18 07:15 1.42 mg/dL (0.70-1.30) H 08/23/18 07:15 Est GFR (MDRD) Af Amer 62 mL/min (>60) 08/23/18 07:15 Est GFR (MDRD) Non-Af 51 mL/min (>60) L 08/23/18 07:15 15.5 RATIO (10-20) 08/23/18 07:15 Glucose 148 mg/dL (74-106) H 08/23/18 07:15 Vancomycin Trough 14.3 ug/mL (5.0-15.0) 08/23/18 07:15 Microbiology: Microbiology 08/21/18 17:50 Blood Culture (Wb) - Anticubital Right Blood Culture - Preliminary Staphylococcus aureus 08/21/18 17:35 Blood Culture (Wb) - Anticubital Left Bacteria Detection (PCR) - Final mecA Resistance Marker Staphylococcus aureus 08/21/18 17:35 Blood Culture (Wb) - Anticubital Left Blood Culture - Preliminary Staphylococcus aureus 08/21/18 22:30 Wound - Aerobic & Anaerobic Swabs Gram Stain - Final 08/21/18 22:30 Wound - Aerobic & Anaerobic Swabs Wound Culture - Preliminary GNR lactose social media community manager Staphylococcus species 08/21/18 18:28 Urine, Clean Catch Urine Culture - Preliminary Culture exhibits no growth. 08/21/18 17:45 Wound - Right Foot Gram Stain - Final 08/21/18 17:45 Wound - Right Foot Wound Culture - Preliminary GNR lactose social media community manager Gram negative robbin Staphylococcus species Weight used for dosin.5 kg Estimated Creatinine Clearance: 44 ml/min Goal Trough: 15-20 mcg/mL Pharmacy Plan for Drug Dosing: A vancomycin trough obtained this morning came back as 14.3 mg/L, lower than the goal trough of 15-20. The plan is to slightly increase the dose to 1000mg IV q12h and redraw another trough before the 4th dose. Pharmacy Service will continue to monitor and adjust dosing as required. Follow-Up Labs: Trough Vancomycin Labs to be done on [date and time ordered]: 08/25/18 06:30
--- NOTE | 2018-08-23 10:00 | BON_PTH ---
PATIENT: PAULINA OSORIO LOC: [facility] U#:[id number] AGE/SX: 78/M ROOM: [facility]311 RE08/21/[address]: Dr. Rama Graham MD : [id number] BED: 1 DIS: 08/27/2018 SPEC #: [id number] RECD: 08/24/18 07:53 STATUS: TALHA REQ #: [id number] AUGUSTO: 08/23/18 10:[address]: Claritza Contreras DEPT: SURGICAL PATHOLOGY RECD BY: Khang Butt ENTERED: 08/24/18 10:11 SP TYPE: Bone OTHR DR: MD Dr. Chris Hunter MD Dr. Joseph Agyepong, MD Dr. Jeffrey Wunning, DPM MD Dr. Nawaf Page MD Tissues: A - Bone of foot, NOS B - Bone of foot, NOS Procedures: Decalcification bone/plaque Surgery Specimen Level III HEADER OPERATION: Debridement wound PRE-OP DIAGNOSIS: Right foot infection, osteomyelitis TISSUE SUBMITTED: A. Right first metatarsal clearance fragment, B. Right foot soft tissue and bone MICROSCOPIC DIAGNOSIS A. Right first metatarsal clearance fragment: Fibroadipose tissue and small fragment of bone. B. Right foot, soft tissue and bone: Skin with subcutaneous abscess and granulation tissue formation. Fragments of bone showing minute acute inflammatory aggregates, clinically osteomyelitis. CE:kirk 08/28/18 MICROSCOPIC DESCRIPTION Slides are reviewed. GROSS DESCRIPTION A - Received in fixative is one container labeled with the patient's name and designated right first metatarsal clearance fragment. The specimen consists of a yellow portion of bone/soft tissue measuring 0.6 x 0.3 x 0.3 cm. The specimen is totally submitted in one cassette after decalcification. B - Received in fixative is one container labeled with the patient's name and designated right foot soft tissue and bone. The specimen consists of several garnica-brown fragments of irregular soft tissue and bone measuring in aggregate 4.5 x 4 x 1 cm. Food And Beverage Coordinator sections are submitted in two cassettes after decalcification. / CE:kirk 08/24/18 TC:2 CPT: 94116 x2, 40280 x2
--- NOTE | 2018-08-23 10:25 | NURSING ---
pt left for surgery
--- NOTE | 2018-08-23 11:06 | PCA ---
pt off floor
--- NOTE | 2018-08-23 12:16 | RAD_ITS ---
STUDY: X-RAY - RIGHT FOOT CLINICAL: Male, 78 years old. TECHNIQUE: 3 view(s) of the foot. COMPARISON: August 21, 2018 FINDINGS: There is amputation of the forefoot from the midportion of the tarsal bones. The rest of the bones are intact. The soft tissue flap is now elevated when compared to the study August 21, 2018 RAD/Foot min 3 Views IMPRESSION: Amputation of the forefoot at the level of the mid metatarsals with a soft tissue flap is elevated now as mentioned. Electronically Signed: Gene Finch, at 14:00 EDT Tel , Service support ,
[2018-08-23] MEDS: Bupivacaine Mpf 0.5% 30 ML VIAL (12:30)
--- NOTE | 2018-08-23 13:03 | PN_ITS ---
Patient Problems: Active and Suspected Problems (Last Reviewed 08/21/18 @ 21:15 by Shaka De La Torre MD) Type 2 diabetes mellitus with diabetic polyneuropathy (Acute) Malnutrition (Acute) Delayed wound healing (Acute) Osteomyelitis (Suspected) Subjective: The patient had operative debridement of infected left transmetatarsal site. Patient returned to room. Denies any pain. Vitals/I&O's: Vital Signs Temp Pulse Resp BP Pulse Ox 97.9 F 62 16 103/59 L 95 08/23/18 07:57 08/23/18 07:57 08/23/18 07:57 08/23/18 07:57 08/23/18 07:57 Oxygen Delivery Method Room Air Weight: 199 lb 8.293 oz Body Mass Index (BMI) 28.6 Finger Stick Blood Glucose 89 Intake and Output for Last 24 Hours 08/21/18 08/22/18 08/23/18 23:59 23:59 23:59 Intake Total 1620 / 2850 1304 / 1304 Balance 1620 / 2850 1304 / 1304 General: Alert, Oriented x3, Cooperative HEENT: Atraumatic, PERRLA, EOMI, Normocephalic Neck: Supple, No JVD, Negative Carotid Bruits Lungs: Clear to auscultation, Normal air movement, No rhonchi, No wheeze, No rales Cardiovascular: Regular rate, Regular Rhythm, Normal S1, Normal S2, No murmurs Abdomen: Bowel Sounds Present, Soft, Non Tender Extremities: No edema, Capillary Refill Less than 3 Seconds Skin: Ulcer/ Wound - Left metatarsal site wound status post debridement. Covered with Jalil wrap bandage, postoperative dressing. Dressing is dry. Musculoskeletal: No Tenderness to Palpation of Joints or Extremities, Arthritic Changes Neurological: Cranial nerves II-XII grossly intact Psych/Mental Status: Normal Affect, Appropriate Microbiology Past 72 Hours 08/21/18 22:30 Wound - Aerobic & Anaerobic Swabs Gram Stain - Final 08/21/18 22:30 Wound - Aerobic & Anaerobic Swabs Wound Culture - Preliminary Escherichia coli Meth. resistant Staph. aureus 08/21/18 17:50 Blood Culture (Wb) - Anticubital Right Blood Culture - Preliminary Staphylococcus aureus 08/21/18 17:35 Blood Culture (Wb) - Anticubital Left Bacteria Detection (PCR) - Final mecA Resistance Marker Staphylococcus aureus 08/21/18 17:35 Blood Culture (Wb) - Anticubital Left Blood Culture - Preliminary Staphylococcus aureus 08/21/18 18:28 Urine, Clean Catch Urine Culture - Preliminary Culture exhibits no growth. 08/21/18 17:45 Wound - Right Foot Gram Stain - Final 08/21/18 17:45 Wound - Right Foot Wound Culture - Preliminary GNR lactose style advisor Gram negative robbin Staphylococcus species Laboratory Results 08/22/18 11:35: POC Glucose 232 H 08/22/18 16:33: POC Glucose 232 H 08/22/18 22:07: POC Glucose 215 H 08/23/18 03:01: POC Glucose 172 H 08/23/18 06:36: POC Glucose 153 H 08/23/18 07:15: Vancomycin Trough 14.3 08/23/18 07:15: WBC 5.5, RBC 3.18 L, Hgb 8.6 L, Hct 26.6 L, MCV 83.6, MCH 27.0, MCHC 32.3, RDW 13.7, RDW Differential 39.6, Plt Count 273, MPV 9.5, Immature Gran % (Auto) 0.400, Neut % (Auto) 62.9, Lymph % (Auto) 19.4, Spalding % (Auto) 13.2 H, Eos % (Auto) 3.7, Baso % (Auto) 0.4, Absolute Neuts (auto) 3.4, Absolute Lymphs (auto) 1.06, Total Counted Not Reportable 08/23/18 07:15: Sodium 139, Potassium 3.9, Chloride 107, Carbon Dioxide 25.0, Anion Gap 7, BUN 22 H, Creatinine 1.42 H, Estim Creat Clear Calc 44.27, Est GFR (MDRD) Af Amer 62, Est GFR (MDRD) Non-Af 51 L, BUN/Creatinine Ratio 15.5, Glucose 148 H, Calcium 8.3 L Current Medications Acetaminophen (Tylenol) 650 mg PO Q6H PRN PRN PRN Reason: Mild Pain (1-3)/Temp > 100.7 F Amiloride HCl (Amiloride Hcl) 5 mg PO BIDCM [facility] Last Admin: 08/23/18 08:48 Dose: Not Given Documented by: Aspirin (Ecotrin) 81 mg PO DAILY [facility] Last Admin: 08/23/18 08:48 Dose: Not Given Documented by: Clopidogrel Bisulfate (Plavix) 37.5 mg PO DAILY [facility] Last Admin: 08/23/18 08:49 Dose: Not Given Documented by: Dextrose (D50w Syringe) 0 gm IV X1 PRN; Protocol PRN Reason: Hypoglycemia Doxazosin Mesylate (Cardura) 2 mg PO QHS [facility] Last Admin: 08/22/18 22:09 Dose: 2 mg Documented by: Enoxaparin Sodium (Lovenox) 40 mg SC DAILY@1000 [facility] Last Admin: 08/22/18 09:21 Dose: 40 mg Documented by: Glucagon () 1 mg IM .X1 PRN PRN Reason: Hypoglycemia Vancomycin IV Pharmacy to Dose (1,250 ea/ Sodium Chloride) 500 mls @ 250 mls/hr IV Q24 PRN; Protocol Piperacillin Sod/Tazobactam (Sod 3.375 gm/ Sodium Chloride) 50 mls @ 12.5 mls/hr IV Q8 [facility] Last Admin: 08/23/18 05:34 Dose: 12.5 mls/hr Documented by: Sodium Chloride () 250 mls @ 15 mls/hr IV .[id number] PRN PRN Reason: SALINE FLUSH Last Admin: 08/23/18 07:15 Dose: 15 mls/hr Documented by: Vancomycin HCl (Vancomycin) 1,000 mg in 200 mls @ 200 mls/hr IV Q12H [facility] Insulin Human Lispro (Humalog Kwikpen (Bkc)) 0 unit SC ACHS & 3AM [facility]; Protocol Last Admin: 08/23/18 07:00 Dose: 1 u Documented by: Losartan Potassium (Cozaar) 50 mg PO DAILY [facility] Last Admin: 08/23/18 08:49 Dose: Not Given Documented by: Magnesium Oxide (Mag-Ox 400) 400 mg PO BID [facility] Last Admin: 08/23/18 10:02 Dose: Not Given Documented by: Melatonin (Melatonin) 3 mg PO QHS PRN PRN PRN Reason: INSOMNIA Metoprolol Succinate (Toprol Xl (Beta Carloz)) 25 mg PO DAILY [facility] Last Admin: 08/22/18 09:21 Dose: 25 mg Documented by: Morphine Sulfate () 2 mg IV Q3H PRN PRN PRN Reason: Severe pain (7-10/10) Nutritional Formula (Silviano - [place] Flavor) 1 packet PO BIDCM [facility] Last Admin: 08/23/18 08:48 Dose: Not Given Documented by: Nutritional Formula (Lactose Free) (Glucerna Shake) 120 ml PO 4X/DAY [facility] Last Admin: 08/23/18 08:49 Dose: Not Given Documented by: Ondansetron HCl (Zofran) 4 mg IV Q8H PRN PRN PRN Reason: NAUSEA/VOMITING Oxycodone HCl (Oxyir) 5 mg PO Q4H PRN PRN PRN Reason: Moderate Pain (4-6/10) Sodium Chloride () 5 - 15 ml IV UD PRN PRN Reason: SALINE FLUSH Last Admin: 08/23/18 07:00 Dose: 10 ml Documented by: Sodium Hypochlorite (Dakins Solution 0.25% (1/2 Strength)) 1 applic TOPICAL BID [facility]; Protocol Last Admin: 08/23/18 08:48 Dose: Not Given Documented by: Medical Necessity - Tobacco Use Smoking Status: Never smoker Tobacco Use: Non-smoker Assessment/Plan All Active Problems (Last Reviewed 08/21/18 @ 21:15 by Shaka De La Torre MD) Cellulitis of right lower extremity (Acute) Type 2 diabetes mellitus with diabetic polyneuropathy (Acute) Malnutrition (Acute) Delayed wound healing (Acute) DM type 2, uncontrolled, with renal complications (Acute) The patient is a 78 year old M with a significant history of Diabetes mellitus, HTN, history of osteomyelitis with 3 amputation, on 07/17/2018 who reportedly completed antibiotics linezolid about 4 days ago but home medications shows stopped it 08/11/2018 admitted with right foot stump redness, pain and ulcer on the medial side suggestive of cellulitis with osteomyelitis. Acute osteomyelitis of foot of R stump. Had debridement of non viable soft tissue and bone right foot with drainage on 08/23. Wound culture from wound shows MRSA and E. coli. Currently on vancomycin and Zosyn. ID has been consulted. X-ray of right foot showed new erosions in the proximal fifth metatarsal which is suspicious for osteomyelitis. ESR and CRP are elevated. 2. CAD status post CABG Aspirin and clopidogrel continued. On home PCSK 9 inhibitor (Alirocumab (Praluent Pen)) that patient takes every 2 weeks. last time he took it was about 7 weeks ago. 3. Hypertension Losartan; metoprolol and amiloride continued. Blood pressure is controlled. Diabetes mellitus type II: Glucose 85 in BMP. Blood sugar is between 150-225 range. As per hadoop developer most, his blood sugar was in 200 and SNF but he had blood sugar is 98-1 50, last 2231. On Accu-Chek and titrate insulin accordingly. Titrate up the Lantus insulin. DVT prophylaxis Subcutaneous Lovenox ordered. Microbiology Past 72 Hours 08/21/18 17:45 Wound - Right Foot Gram Stain - Final 08/21/18 17:45 Wound - Right Foot Wound Culture - Preliminary GNR lactose style advisor Gram negative robbin Staphylococcus aureus 08/21/18 22:30 Wound - Aerobic & Anaerobic Swabs Gram Stain - Final 08/21/18 22:30 Wound - Aerobic & Anaerobic Swabs Wound Culture - Preliminary Escherichia coli Meth. resistant Staph. aureus 08/21/18 17:50 Blood Culture (Wb) - Anticubital Right Blood Culture - Preliminary Staphylococcus aureus 08/21/18 17:35 Blood Culture (Wb) - Anticubital Left Bacteria Detection (PCR) - Final mecA Resistance Marker Staphylococcus aureus 08/21/18 17:35 Blood Culture (Wb) - Anticubital Left Blood Culture - Preliminary Staphylococcus aureus 08/21/18 18:28 Urine, Clean Catch Urine Culture - Preliminary Culture exhibits no growth. Laboratory Results 08/22/18 16:33: POC Glucose 232 H 08/22/18 22:07: POC Glucose 215 H 08/23/18 03:01: POC Glucose 172 H 08/23/18 06:36: POC Glucose 153 H 08/23/18 07:15: Vancomycin Trough 14.3 08/23/18 07:15: WBC 5.5, RBC 3.18 L, Hgb 8.6 L, Hct 26.6 L, MCV 83.6, MCH 27.0, MCHC 32.3, RDW 13.7, RDW Differential 39.6, Plt Count 273, MPV 9.5, Immature Gran % (Auto) 0.400, Neut % (Auto) 62.9, Lymph % (Auto) 19.4, Spalding % (Auto) 13.2 H, Eos % (Auto) 3.7, Baso % (Auto) 0.4, Absolute Neuts (auto) 3.4, Absolute Lymphs (auto) 1.06, Total Counted Not Reportable 08/23/18 07:15: Sodium 139, Potassium 3.9, Chloride 107, Carbon Dioxide 25.0, Anion Gap 7, BUN 22 H, Creatinine 1.42 H, Estim Creat Clear Calc 44.27, Est GFR (MDRD) Af Amer 62, Est GFR (MDRD) Non-Af 51 L, BUN/Creatinine Ratio 15.5, Glucose 148 H, Calcium 8.3 L 08/23/18 13:04: Blood Type AB POSITIVE, Antibody Screen NEGATIVE 08/23/18 13:29: POC Glucose 139 H Code Visit Inpatient E&M: [id number] Subs Hosp L3
--- NOTE | 2018-08-23 13:22 | PCM.OPRPT ---
Problem List (1) Type 2 diabetes mellitus with diabetic polyneuropathy Status: Acute (2) Malnutrition Status: Acute (3) Delayed wound healing Status: Acute (4) Cellulitis of right lower extremity Status: Acute (5) Uncontrolled type 2 diabetes mellitus, with long-term current use of insulin Status: Chronic Comment: He agrees to take insulin as directed. 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 see additional operative note findings complications: none The patient tolerated the procedure and anesthesia well. He was transported to the PACU vital signs stable vascular status intact to the right lower extremity. He will be transferred back to the regular medicine surgical floor upon continued stability and will continue on IV antibiotics that are culture guided. Infectious disease on consultation. Medical management per primary team is appreciated. Electronic orders were entered postoperatively. lead security officer: none - surgeon: Claritza Contreras DPM Type of Anesthesia:: Local MAC - Preoperative injection: 20 cc of 1: 1 mixture of 1% lidocaine plain and 0.5% Marcaine plain administered in typical right ankle block fashion which is well proximal from the cellulitis and infection area Specimen's removed: 1. Soft tissue and bone right foot sent to pathology. 2. Soft tissue and bone sent to microbiology for aerobic, anaerobic, acid-fast, fungal. 3. Clearance fragment first metatarsal right foot sent to pathology. 4. Clearance fragment first metatarsal right foot sent to microbiology for aerobic, anaerobic, acid-fast, fungal Estimated Blood Loss (mL): < 300 mL Description of Procedure: Indications: This is a 78-year-old male sitting the past medical history of diabetes, coronary artery disease, hypertension who has chronic nonhealing right transmetatarsal amputation. Approximately 2 days ago and odor and redness was noted to the right foot with purulence on expression after the wound VAC was removed. He also was confused and had positive bacterial growth with both wound and blood cultures. X-rays did not demonstrate any acute fractures, foreign body, or soft tissue emphysema. It is noted he is in the recent postoperative setting in which Dr. Oliver performed a transmetatarsal amputation in June and further revisional debridement in July. He has been undergoing saline irrigation with Dakin soaked gauze with packing on the medicine floor without adequate resolution of infection. It is noted he is growing out MRSA and gram-negative rods and is on vancomycin and Zosyn. Due to inadequate response I recommended surgical debridement and irrigation. The preoperative indication, planned procedure, possible benefits, risks, complications, and anticipated healing time and management were discussed in detail the patient. He understands like to proceed with surgery at this time. He understands risk palpitations include but not limited to the following: Pain, swelling, scarring, continued infection, non-or delayed healing, allergic reaction, blood clot, chronic pain, need for further surgery, recurrence, loss of limb, function, life. No guarantees were made. He understands and elects to proceed with surgery at this time. He also understands the main goal of the surgery today is to remove infected tissue and a staged procedure may be warranted. I answered all of his questions his satisfaction. I also answered his 's questions. The surgical limb and surgical consent were signed. Procedure detail: The patient was transported to the operating room via cart and placed on the operating table in supine position. Final verification of the patient, surgery, limb designation was performed via the time-out procedure. MAC anesthesia was initiated by the anesthesia team. Local anesthetic was administered by Dr. dianne Montenegro is noted. A well-padded pneumatic right ankle tourniquet was placed. The right lower extreme is prepped and draped in the usual aseptic manner. Attention was first noted to the right transmetatarsal amputation stump site in which the first and second metatarsals were exposed and surgery and is following: A 15 blade was used to extend the transmetatarsal amputation flap to the central lateral aspect and which devitalized subcutaneous and muscle tissue was removed from the table as was the nonviable exposed prominent metatarsals 1, 2, 3, 4 with a sagittal saw. This was sent to both microbiology and pathology. Care was taken to bevel this and it was noted the bone was firm. Devitalized adipose tissue and remaining soft tissue was further debrided with a curette and rondure. Copious saline irrigation was performed. Gloves, instruments, and drapes were next placed with clean materials to prevent contamination. A new bone nipper was used to obtain a clearance fragment of the first metatarsal and this was also sent to pathology and microbiology. It is noted that brisk capillary refill time was noted to the dorsal and plantar entire flap aspect after the tourniquet was deflated after 28 minutes. No pulsatile bleeding was noted and electrocauterization and direct pressure was applied to controlled hemostasis. Saline irrigation was performed again. It is noted no additional purulent material, necrosis or odor were noted at this time. Retention sutures consisting of 2-0 Prolene in simple and vertical mattress technique were applied to reapproximate the flap margins. This surgical wound site was only partially closed to allow continued infectious or hematogenous drainage is going through healing process to reduce infection sequestra and hematoma formation. Additional saline wicked gauze were packed into the remaining open aspects of the trans-metatarsal flap site. Additional gauze, abdominal pad, Kerlix and Coban were applied as a postoperative dressing. After procedure: The patient was transferred to the PACU vital signs stable vascular status intact to the right lower extremity. He was advised to ice and elevate for pain and inflammation management. He was advised to keep his dressing clean, dry, and intact. He was advised to remain strict nonweightbearing to the right lower extremity with assistive device. Intraoperative pathology and culture results are pending. He continues on IV vancomycin and Zosyn. Infectious disease is on consultation and is greatly appreciated. It is also noted he had previous noninvasive vascular studies which demonstrated evidence of adequate healing including triphasic waveforms in the ankle level and also a right ankle-brachial index of 1.25. Regardless, his limb does appear dysvascular with lack of hair and atrophic skin in conjunction with ongoing delayed healing. I do recommend an inpatient versus outpatient vascular surgery referral to see if any additional intervention may be helpful in this case. He will continue to receive nutritional supplementation and diabetic management to optimize healing. Lovenox will be resumed tomorrow upon confirmed continued hemostasis control. It is noted he had a hemoglobin of 8.7 preoperative and had blood transfusion in the recent past couple of weeks. His hemoglobin / hematocrit will be checked this evening and he will be monitored closely for further anemia development. His orders were entered postoperatively. I will continue to follow him close while in house. He understands he is at risk for limb and life loss due to this infection and medical comorbidities. Claritza Contreras DPM, [facility] - Complications none - Admit VTE Documentation VTE Mechan Device Prophylaxis: SCD's VTE Pharm Prophylaxis ordered?: Yes
--- NOTE | 2018-08-23 13:44 | PCA ---
pt off floor
[2018-08-23 14:30] LABS: Bedside Glucose 139 mg/dL (70-110)
[2018-08-23] MEDS: AMILORIDE HCL 5 MG TABLET PO (17:18)
[2018-08-23] MEDS: Glucerna Shake 120 ML LIQUID PO (17:24)
[2018-08-23 17:41] LABS: Bedside Glucose 153 mg/dL (70-110)
[2018-08-23] MEDS: Vancomycin IV 1,000 MG/200 ML BAG 200 MG IV (19:14)
[2018-08-23 19:43] LABS: Hematocrit 26.3 % (40-54); Hemoglobin 8.5 g/dl (13.0-16.5)
[2018-08-23] MEDS: Magnesium Oxide 400 MG Tablet PO (21:22)
[2018-08-23] MEDS: Doxazosin 4 MG Tablet 2 MG PO (21:27)
[2018-08-23 21:36] LABS: Bedside Glucose 277 mg/dL (70-110)
[2018-08-24 03:01] VITALS: BP 120/55; PULSE 66; RESP 18; TEMP 37.2; O2SAT 96
[2018-08-24] MEDS: Insulin Lispro 100 UNIT/ML INSULN.PEN SC ×5 (03:03→21:45)
[2018-08-24 05:57] LABS: Absolute Lymphocyte Count 1.54 X10^3/ul (0.83-4.51); Absolute Neutrophil Count 3.6 X10^3/uL (2.0-7.7); Basophil# 0.03 X10^3/uL; Basophil% 0.5 % (0-1); Eosinophil# 0.15 X10^3/uL; Eosinophils% 2.5 % (0-5); Hematocrit 24.8 % (40-54); Lymphocyte # 1.54 X10^3/ul (4.0); Mean Corp Hgb Conc 32.3 g/gl (32-36); Mean Corpuscular Hgb 26.8 pg (27.0-32.0); Mean Corpuscular Volume 83.2 fL (80-94); Mean Platelet Vol. 8.9 fl (6.2-12.0); Monocyte% 10.1 % (0-10); Neutrophil # 3.59 X10^3/uL (2.7-7.7); Neutrophil % 60.7 % (47-70); Platelet Count 275 K/mm3 (150-450); RBC Distribution Width CV 13.8 % (11.6-14.6); RBC Distribution Width SD 39.5 fl (35.1-43.9); Red Blood Count 2.98 M/mm3 (4.6-6.2); White Blood Count 5.9 K/mm3 (4.4-11.0)
[2018-08-24] MEDS: Vancomycin IV 1,000 MG/200 ML BAG 200 MG IV ×2 (06:00→18:30)
[2018-08-24] MEDS: 0.9% NaCl Peripheral Flush Adult/Peds IV ×2 (06:00→13:10)
[2018-08-24 06:08] LABS: Anion Gap 7 (5-15); BUN 20 mg/dL (7-18); BUN/Creat Ratio 16.1 RATIO (10-20); Calcium,Total 8.1 mg/dL (8.5-10.1); Chloride 107 mmol/L (98-107); Creatinine, Serum 1.24 mg/dL (0.70-1.30); EST Glomerular Filtration Rate 60 mL/min (>60); Est Glom Filt Rate - Afr Amer 73 mL/min (>60); Estimated Creatinine Clearance 50.69 ml/min; Glucose 187 mg/dL (74-106); Potassium 3.8 mmol/L (3.5-5.1); Sodium Level 139 mmol/L (136-145)
[2018-08-24 06:16] LABS: POSITIVE COUNT NO; POSITIVE DIFFERENTIAL NO; POSITIVE MORPHOLOGY NO
[2018-08-24 06:16] LABS: Bedside Glucose 192 mg/dL (70-110)
--- NOTE | 2018-08-24 07:49 | PN_ITS ---
Patient Problems: Active and Suspected Problems (Last Reviewed 08/21/18 @ 21:15 by Shaka De La Torre MD) Bacteremia (Acute) Type 2 diabetes mellitus with diabetic polyneuropathy (Acute) Malnutrition (Acute) Delayed wound healing (Acute) Osteomyelitis (Suspected) Subjective: Patient was seen and examined. Pain is controlled. Denies any fever or chills. No acute events overnight. Objective: Physical exam: General: Alert, Oriented x3, Cooperative HEENT: Atraumatic, PERRLA, EOMI, Normocephalic Neck: Supple, No JVD, Negative Carotid Bruits Lungs: Clear to auscultation, Normal air movement, No rhonchi, No wheeze, No rales Cardiovascular: Regular rate, Regular Rhythm, Normal S1, Normal S2, No murmurs Abdomen: Bowel Sounds Present, Soft, Non Tender Extremities: No edema, Capillary Refill Less than 3 Seconds Skin: Ulcer/ Wound - Left metatarsal site wound status post debridement. Covered with Jalil wrap bandage, postoperative dressing. Dressing is dry. Musculoskeletal: No Tenderness to Palpation of Joints or Extremities, Arthritic Changes Neurological: Cranial nerves II-XII grossly intact Psych/Mental Status: Normal Affect, Appropriate Vitals/I&O's: Vital Signs Temp Pulse Resp BP Pulse Ox 99.0 F 66 18 120/55 L 96 08/24/18 03:01 08/24/18 03:01 08/24/18 03:01 08/24/18 03:01 08/24/18 03:01 Oxygen Flow Rate (L/min) 2 Oxygen Delivery Method Room Air Weight: 90.5 kg Body Mass Index (BMI) 28.6 Finger Stick Blood Glucose 89 Intake and Output for Last 24 Hours 08/22/18 08/23/18 08/24/18 23:59 23:59 23:59 Intake Total 1620 / 2850 2299 / 2299 1023 / 1023 Balance 1620 / 2850 2299 / 2299 1023 / 1023 Microbiology Past 72 Hours 08/21/18 17:50 Blood Culture (Wb) - Anticubital Right Blood Culture - Final Staphylococcus aureus 08/21/18 17:35 Blood Culture (Wb) - Anticubital Left Bacteria Detection (PCR) - Final mecA Resistance Marker Staphylococcus aureus 08/21/18 17:35 Blood Culture (Wb) - Anticubital Left Blood Culture - Final Meth. resistant Staph. aureus 08/24/18 00:20 Stool C. 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 resistant Staph. aureus 08/21/18 18:28 Urine, Clean Catch Urine Culture - Preliminary Culture exhibits no growth. Laboratory Results 08/23/18 07:15: Vancomycin Trough 14.3 08/23/18 07:15: Sodium 139, Potassium 3.9, Chloride 107, Carbon Dioxide 25.0, Anion Gap 7, BUN 22 H, Creatinine 1.42 H, Estim Creat Clear Calc 44.27, Est GFR (MDRD) Af Amer 62, Est GFR (MDRD) Non-Af 51 L, BUN/Creatinine Ratio 15.5, Glucose 148 H, Calcium 8.3 L 08/23/18 13:04: Blood Type AB POSITIVE, Antibody Screen NEGATIVE 08/23/18 13:29: POC Glucose 139 H 08/23/18 17:15: POC Glucose 153 H 08/23/18 19:05: Hgb 8.5 L, Hct 26.3 L 08/23/18 21:15: POC Glucose 277 H 08/24/18 05:40: WBC 5.9, RBC 2.98 L, Hgb 8.0 L, Hct 24.8 L, MCV 83.2, MCH 26.8 L , MCHC 32.3, RDW 13.8, RDW Differential 39.5, Plt Count 275, MPV 8.9, Immature Gran % (Auto) 0.200, Neut % (Auto) 60.7, Lymph % (Auto) 26.0, Nuckolls % (Auto) 10.1 H, Eos % (Auto) 2.5, Baso % (Auto) 0.5, Absolute Neuts (auto) 3.6, Absolute Lymphs (auto) 1.54, Total Counted Not Reportable 08/24/18 05:40: Sodium 139, Potassium 3.8, Chloride 107, Carbon Dioxide 25.0, Anion Gap 7, BUN 20 H, Creatinine 1.24, Estim Creat Clear Calc 50.69, Est GFR (MDRD) Af Amer 73, Est GFR (MDRD) Non-Af 60, BUN/Creatinine Ratio 16.1, Glucose 187 H, Calcium 8.1 L 08/24/18 05:40: Hemoglobin A1c Pending 08/24/18 05:59: POC Glucose 192 H Current Medications Acetaminophen (Tylenol) 650 mg PO Q6H PRN PRN PRN Reason: Mild Pain (1-3)/Temp > 100.7 F Amiloride HCl (Amiloride Hcl) 5 mg PO BIDCM [facility] Last Admin: 08/23/18 17:18 Dose: 5 mg Documented by: Aspirin (Ecotrin) 81 mg PO DAILY [facility] Last Admin: 08/23/18 08:48 Dose: Not Given Documented by: Clopidogrel Bisulfate (Plavix) 37.5 mg PO DAILY [facility] Last Admin: 08/23/18 08:49 Dose: Not Given Documented by: Dextrose (D50w Syringe) 0 gm IV X1 PRN; Protocol PRN Reason: Hypoglycemia Doxazosin Mesylate (Cardura) 2 mg PO QHS [facility] Last Admin: 08/23/18 21:27 Dose: 2 mg Documented by: Enoxaparin Sodium (Lovenox) 40 mg SC DAILY@1000 [facility] Last Admin: 08/22/18 09:21 Dose: 40 mg Documented by: Glucagon () 1 mg IM .X1 PRN PRN Reason: Hypoglycemia Vancomycin IV Pharmacy to Dose (1,250 ea/ Sodium Chloride) 500 mls @ 250 mls/hr IV Q24 PRN; Protocol Piperacillin Sod/Tazobactam (Sod 3.375 gm/ Sodium Chloride) 50 mls @ 12.5 mls/hr IV Q8 [facility] Last Admin: 08/24/18 06:00 Dose: 12.5 mls/hr Documented by: Sodium Chloride () 250 mls @ 15 mls/hr IV .[id number] PRN PRN Reason: SALINE FLUSH Last Admin: 08/23/18 07:15 Dose: 15 mls/hr Documented by: Vancomycin HCl (Vancomycin) 1,000 mg in 200 mls @ 200 mls/hr IV Q12H [facility] Last Admin: 08/24/18 06:00 Dose: 200 mls/hr Documented by: Insulin Glargine (Lantus ([facility])) 10 units SC DINNER [facility] Last Admin: 08/23/18 17:26 Dose: 10 units Documented by: Insulin Human Lispro (Humalog Kwikpen ([facility])) 0 unit SC ACHS & 3AM [facility]; Protocol Last Admin: 08/24/18 06:03 Dose: 1 u Documented by: Losartan Potassium (Cozaar) 50 mg PO DAILY [facility] Last Admin: 08/23/18 08:49 Dose: Not Given Documented by: Magnesium Oxide (Mag-Ox 400) 400 mg PO BID [facility] Last Admin: 08/23/18 21:22 Dose: 400 mg Documented by: Melatonin (Melatonin) 3 mg PO QHS PRN PRN PRN Reason: INSOMNIA Metoprolol Succinate (Toprol Xl (Beta Carloz)) 25 mg PO DAILY [facility] Last Admin: 08/23/18 14:44 Dose: Not Given Documented by: Morphine Sulfate () 2 mg IV Q3H PRN PRN PRN Reason: Severe pain (7-10/10) Nutritional Formula (Silviano - Cannon Flavor) 1 packet PO BIDCM [facility] Last Admin: 08/23/18 17:24 Dose: 1 packet Documented by: Nutritional Formula (Lactose Free) (Glucerna Shake) 120 ml PO 4X/DAY [facility] Last Admin: 08/23/18 21:26 Dose: Not Given Documented by: Ondansetron HCl (Zofran) 4 mg IV Q8H PRN PRN PRN Reason: NAUSEA/VOMITING Oxycodone HCl (Oxyir) 5 mg PO Q4H PRN PRN PRN Reason: Moderate Pain (4-6/10) Sodium Chloride () 5 - 15 ml IV UD PRN PRN Reason: SALINE FLUSH Last Admin: 08/24/18 06:00 Dose: 10 ml Documented by: Sodium Hypochlorite (Dakins Solution 0.25% (1/2 Strength)) 1 applic TOPICAL BID [facility]; Protocol Last Admin: 08/23/18 21:08 Dose: Not Given Documented by: Medical Necessity - Tobacco Use Smoking Status: Never smoker Tobacco Use: Non-smoker Assessment/Plan All Active Problems (Last Reviewed 08/21/18 @ 21:15 by Shaka De La Torre MD) Bacteremia (Acute) Cellulitis of right lower extremity (Acute) Type 2 diabetes mellitus with diabetic polyneuropathy (Acute) Malnutrition (Acute) Delayed wound healing (Acute) DM type 2, uncontrolled, with renal complications (Acute) 78-year-old male with past medical history of type 2 diabetes, 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 He is status post debridement of nonviable soft tissue and bone in the right foot. 1. Acute MRSA/E. Coli right foot stump osteomyelitis/cellulitis, status post wound debridement, POD #1, Operative cultures are pending from the wound and the bone. Previous wound cultures grew E. coli and MRSA. Blood cultures also positive for MRSA On IV vancomycin and Zosyn, ID consulted, no fevers, no leukocytosis 2. MRSA bacteremia, on IV Vancomycin and Meropenem, will get 2d-echo, ID consulted 3. Type II DM complicated with diabetic polyneuropathy, sugars controlled, continue on Lantus and insulin sliding scale 4. Hypertension, controlled, continue monitor on losartan, metoprolol and doxazosin 5. Malnutrition, severe secondary to suboptimal energy intake, seam closer consulted and following. 7. DVT prophylaxis Lovenox subcu Code Visit Inpatient E&M: 68657 Subs Hosp L2
[2018-08-24 08:12] LABS: Hemoglobin A1c 7.5 % (4.2-6.3)
[2018-08-24 08:38] VITALS: BP 95/48; PULSE 81; RESP 18; TEMP 36.9; O2SAT 96
[2018-08-24] MEDS: Magnesium Oxide 400 MG Tablet PO ×2 (08:46→21:45)
[2018-08-24] MEDS: Aspirin E.C. 81 MG Tablet PO (08:46)
[2018-08-24] MEDS: Clopidogrel Bisulfate 75 MG Tablet 37.5 MG PO (08:47)
[2018-08-24 08:48] VITALS: BP 95/48; PULSE 81
[2018-08-24] MEDS: Metoprolol(XL)Succ 25 MG Tablet PO (08:48)
--- NOTE | 2018-08-24 09:08 | CASEMGMT ---
TIFFANY ARREOLA called and spoke to , Kassandra, regarding HHC company. confirmed that patient has HHC with [facility]. TIFFANY ARREOLA left message with Kiah Escamilla [facility] Liaison, that patient was in [facility]. TIFFANY ARREOLA awaiting call back from Andi. [facility] will continue to follow this patient and plan for a safe discharge.
[2018-08-24] MEDS: Enoxaparin 40 MG/0.4 ML Syringe SC (10:59)
--- NOTE | 2018-08-24 11:14 | ECHOD_ITS ---
Reason For Study: MRSA Bacteremia Procedure This was a 2D Doppler, Color Flow transthoracic echocardiogram. Exam performed portable in patient room. Left Ventricle Normal LV size. Left ventricular systolic function is normal. The estimated ejection fraction is 60 %. Stage 2 diastolic dysfunction. No regional wall motion abnormalities noted. Right Ventricle Normal RV size. Normal systolic function. Atria Normal left atrium. Normal right atrium. Mitral Valve Normal mitral valve. Mild (1+) mitral valve insufficiency. Tricuspid Valve Normal tricuspid valve. Mild tricuspid valve insufficiency. Pulmonary artery systolic pressure is 44 mmHg. Aortic Valve Trisinus/trileaflet aortic valve. Mild focal aortic valve calcification. Trivial aortic valve insufficiency. Pulmonic Valve Normal pulmonic valve. Great Vessels Normal aortic root. The pulmonary artery is normal size. Normal inferior vena cava. Pericardium/Pleural No pericardial effusion. MMode/2D Measurements & Calculations LVIDd: 5.2 cm IVSd: 1.3 cm Ao root diam: 3.5 cm LVIDs: 3.3 cm LVPWd: 1.1 cm RVDd: 4.1 cm FS: 37.0 % LAV(MOD-bp): 77.1 ml LVAd ap4: 24.8 cm2 SV(MOD-sp4): 44.2 ml LAV(MOD-bp) Indexed: 37.0 ml/m2 EDV(MOD-sp4): 66.4 ml LAV(MOD-sp2): 85.3 ml EDV(sp4-el): 69.0 ml LAV(MOD-sp4): 62.3 ml LVAs ap4: 12.2 cm2 ESV(MOD-sp4): 22.2 ml ESV(sp4-el): 21.4 ml EF(MOD-sp4): 66.6 % EF(sp4-el): 68.9 % SV(sp4-el): 47.6 ml LA A4 area: 20.7 cm2 LA dimension(2D): 4.8 cm RA A4 area: 10.3 cm2 Doppler Measurements & Calculations MV E max ancelmo: 99.4 cm/sec Lat Peak E' Ancelmo: 10.0 cm/sec Med Peak E' Ancelmo: 4.2 cm/sec MV A max ancelmo: 60.1 cm/sec E/E' lat: 9.9 E/E' med: 23.7 MV E/A: 1.7 Ao V2 max: 132.7 cm/sec LV V1 max: 98.6 cm/sec PA V2 max: 80.0 cm/sec Ao max P.0 mmHg LV V1 max P.9 mmHg Ao V2 mean: 98.3 cm/sec Ao mean P.1 mmHg Ao V2 VTI: 29.3 cm TR max ancelmo: 316.2 cm/sec TR max P.0 mmHg Interpretation Summary Normal LV size. Left ventricular systolic function is normal. The estimated ejection fraction is 60 %. Stage 2 diastolic dysfunction. Mild (1+) mitral valve insufficiency. Pulmonary artery systolic pressure is 44 mmHg. No evidence for vegetation. Structurally normal valves. Ordering Physician: Rama Graham Referring Physician: Nawaf Villaseñor Performed By: Alla Cochran, HAFSA, RVT
[2018-08-24 11:21] LABS: Bedside Glucose 268 mg/dL (70-110)
--- NOTE | 2018-08-24 12:15 | PCM.PROGNOTE ---
Patient Problems: Active and Suspected Problems (Last Reviewed 08/21/18 @ 21:15 by Shaka De La Torre MD) Bacteremia (Acute) Type 2 diabetes mellitus with diabetic polyneuropathy (Acute) Malnutrition (Acute) Delayed wound healing (Acute) Osteomyelitis (Suspected) Subjective: This 78-year-old male was seen bedside today post operative day #1 right foot revisional TMA with debridement of non viable soft tissue and bone. He denies foot pain, fever, chills, nausea, vomiting, calf pain, chest pain, shortness of breath. His pain is rated as a 1 out of 10. - Physical Exam General: Alert, Oriented x3, Cooperative Extremities: No cyanosis, Capillary Refill Less than 3 Seconds - Dorsal plantar stump site right foot, No Calf Tenderness - Negative Ceferino and Sloan sign right, Diminished Peripheral Pulses, Edema - decreased right foot Skin: Incision - Well aligned with retention sutures. There is only hematogenous drainage noted upon removal of Dakin soaked with gauze. No purulence or odor on expression. The erythema to the right foot has resolved and there is no streaking or warmth to touch. The adjacent skin is hairless and atrophic Musculoskeletal: No Tenderness to Palpation of Joints or Extremities, Muscle Wasting, - - Right transmetatarsal amputation. Compartments are soft to palpate right leg ankle and foot. Neurological: - - Lack of normal epicritic sensation light touch consistent with his neuropathy status Psych/Mental Status: Normal Affect, Appropriate Vital Signs Temp Pulse Resp BP Pulse Ox 98.5 F 81 18 95/48 L 96 08/24/18 08:38 08/24/18 08:48 08/24/18 08:38 08/24/18 08:48 08/24/18 08:38 Oxygen Flow Rate (L/min) 2 Oxygen Delivery Method Room Air Weight: 90.5 kg Body Mass Index (BMI) 28.6 Finger Stick Blood Glucose 89 Intake and Output for Last 24 Hours 08/22/18 08/23/18 08/24/18 23:59 23:59 23:59 Intake Total 1620 / 2850 2299 / 2299 1023 / 1023 Balance 1620 / 2850 2299 / 2299 1023 / 1023 Microbiology Past 72 Hours 08/23/18 12:45 Gram Stain - Final Bone - Other Wound Culture - Preliminary Staphylococcus aureus GNR lactose motor vehicles inspector 08/23/18 12:45 Gram Stain - Final Bone - Other Wound Culture - Preliminary Staphylococcus aureus GNR lactose motor vehicles inspector 08/21/18 18:28 Urine Culture - Final Urine, Clean Catch Culture exhibits no growth. 08/21/18 22:30 Gram Stain - Final Wound - Aerobic & Anaerobic Swabs Wound Culture - Final Escherichia coli Meth. resistant Staph. aureus Anaerobic Culture - Preliminary Checking for anaerobes, further studies to follow. 08/21/18 17:45 Gram Stain - Final Wound - Right Foot Wound Culture - Final Escherichia coli Acinetobacter baumannii Meth. resistant Staph. aureus 08/21/18 17:50 Blood Culture - Final Blood Culture (Wb) - Anticubital Right Staphylococcus aureus 08/21/18 17:35 Bacteria Detection (PCR) - Final Blood Culture (Wb) - Anticubital Left mecA Resistance Marker Staphylococcus aureus Blood Culture - Final Meth. resistant Staph. aureus 08/24/18 00:20 C. difficile DNA Amplification - Final Stool Laboratory Tests Past 24 Hrs 08/23/18 08/23/18 08/24/18 13:04 19:05 05:40 WBC 5.9 RBC 2.98 L Hgb 8.5 L 8.0 L Hct 26.3 L 24.8 L MCV 83.2 MCH 26.8 L MCHC 32.3 RDW 13.8 RDW Differential 39.5 Plt Count 275 MPV 8.9 Immature Gran % (Auto) 0.200 Neut % (Auto) 60.7 Lymph % (Auto) 26.0 Burt % (Auto) 10.1 H Eos % (Auto) 2.5 Baso % (Auto) 0.5 Absolute Neuts (auto) 3.6 Absolute Lymphs (auto) 1.54 Total Counted Not Reportable Sodium Potassium Chloride Carbon Dioxide Anion Gap BUN Creatinine Estim Creat Clear Calc Est GFR (MDRD) Af Amer Est GFR (MDRD) Non-Af BUN/Creatinine Ratio Glucose Hemoglobin A1c Calcium Blood Type AB POSITIVE Antibody Screen NEGATIVE 08/24/18 08/24/18 05:40 05:40 WBC RBC Hgb Hct MCV MCH MCHC RDW RDW Differential Plt Count MPV Immature Gran % (Auto) Neut % (Auto) Lymph % (Auto) Burt % (Auto) Eos % (Auto) Baso % (Auto) Absolute Neuts (auto) Absolute Lymphs (auto) Total Counted Sodium 139 Potassium 3.8 Chloride 107 Carbon Dioxide 25.0 Anion Gap 7 BUN 20 H Creatinine 1.24 Estim Creat Clear Calc 50.69 Est GFR (MDRD) Af Amer 73 Est GFR (MDRD) Non-Af 60 BUN/Creatinine Ratio 16.1 Glucose 187 H Hemoglobin A1c 7.5 H Calcium 8.1 L Blood Type Antibody Screen POC Glucose 08/24/18 08/24/18 08/23/18 10:58 05:59 21:15 POC Glucose 268 H 192 H 277 H 08/23/18 08/23/18 17:15 13:29 POC Glucose 153 H 139 H Medical Necessity - Tobacco Use Smoking Status: Never smoker Tobacco Use: Non-smoker Assessment/Plan All Active Problems (Last Reviewed 08/21/18 @ 21:15 by Shaka De La Torre MD) Bacteremia (Acute) Cellulitis of right lower extremity (Acute) Type 2 diabetes mellitus with diabetic polyneuropathy (Acute) Malnutrition (Acute) Delayed wound healing (Acute) DM type 2, uncontrolled, with renal complications (Acute) Status post day 1 right revisional transmetatarsal amputation with debridement of nonviable soft tissue and bone with retention suture placement for treatment of cellulitis and osteomyelitis Bacteremia Diabetes with neuropathy Delayed healing Malnutrition Other comorbidities: CAD, history of acute kidney injury, hypertension, hyperlipidemia I reviewed and discussed his case. It is noted he does not have leukocytosis: WBC 5.9. His hemoglobin was 8.0 and he is asymptomatic at this time. His prior anemia status and history of blood transfusion is noted and this will be monitored. His vitals are stable and he remains afebrile. Wound cultures from the clearance fragment from surgery yesterday was reviewed with staphylococcus species and gram negative robbin lactose motor vehicles inspector. The pathology clearance fragment is pending. He is on IV antibiotics of vancomycin and meropenem; to continue. Infectious disease is also on consultation and appreciated. Dressings changed with Dakin's soaked gauze wick into the surgical site. To keep clean and dry. This will be changed tomorrow. Clinically his foot appears less infected with resolution of erythema, warmth, and swelling. Is also noted his C. difficile test was negative. To remain with strict nonweightbearing status to the right lower extremity. He is working with physical therapy and uses a walker. To keep his limb elevated at rest. Vascular surgery was also placed on consult on an inpatient versus outpatient basis due to continued dysvascular appearance and lack of healing. His previous noninvasive vascular studies were noted with a relatively normal ankle-brachial index. We discussed the comprehensive limb salvage plan and he understands there are benefits and risks associated with each treatment plan. I will continue to follow him close while in house. Medical management, DVT prophylaxis, and diarrhea work-up per medicine team is greatly appreciated. I recommend long-term facility placement at time of discharge. Please not hesitate to call if you have any questions. Claritza Contreras DPM, [facility] [phone]
[2018-08-24 12:30] VITALS: BP 117/64; PULSE 71; RESP 18; TEMP 36.7; O2SAT 98
--- NOTE | 2018-08-24 14:18 | CON.PCM_ITS ---
Problem List (1) Bacteremia Status: Acute Reason for Consult: bacteremia Consulted by: Dr. Graham History of Present Illness: The patient is a 78 year old M with DM neuropathy, recent admissions for R foot osteo. Had I&D done 06/30, then taken back to OR 07/[address] Oliver for TMA given worsening. Surg cx with stenotrophomonas, thought to be contaminant. Left ECF, in the two days back at home developed fever/chills, worsening R foot swelling/pain/redness. Seen by home health, sent to ED. Started on vanc and zosyn. Taken to OR 08/23 for debridement. Bcx with MRSA. Foot cx with ESBL ecoli, AcB, and MRSA. Feeling ok now, no fever since admit, pain controlled, no new joint pain or back pain. Full ROS performed and neg except as noted above. - Medical History Past Medical History (Chronic Problems): Chronic Problems (Last Reviewed 08/21/18 @ 21:15 by Shaka De La Torre MD) Ulcer with necrosis of bone (Chronic) Hyperlipidemia associated with type 2 diabetes mellitus (Chronic) Managed by Dr. King. New chol agent being used. Chol now 164, LDL 75. Taking monthly injection. Essential hypertension with goal blood pressure less than 130/80 (Chronic) Hx of elevated BG in medical office. Monitors at home daily with findings of normal BP. No change in regimen. Uncontrolled type 2 diabetes mellitus, with long-term current use of insulin (Chronic) He agrees to take insulin as directed. A1c now 8.6 Allergies/Adverse Reactions: Allergies Iodinated Contrast- Oral and IV Dye [CONTRASTS] Allergy (Verified 08/21/18 16:53) Rash amlodipine [From Norvasc] Adverse Reaction (Unknown, Verified 08/21/18 16:53) Unknown atorvastatin [From Lipitor] Adverse Reaction (Unknown, Verified 08/21/18 16:53) Unknown cerivastatin [From Baycol] Adverse Reaction (Unknown, Verified 08/21/18 16:53) Unknown enalapril Adverse Reaction (Unknown, Verified 08/21/18 16:53) Unknown exenatide [From Byetta] Adverse Reaction (Unknown, Verified 08/21/18 16:53) Unknown ezetimibe [From Zetia] Adverse Reaction (Unknown, Verified 08/21/18 16:53) Unknown fenofibrate [From Tricor] Adverse Reaction (Unknown, Verified 08/21/18 16:53) Unknown gemfibrozil Adverse Reaction (Unknown, Verified 08/21/18 16:53) Unknown glipizide [From Glucotrol] Adverse Reaction (Unknown, Verified 08/21/18 16:53) Unknown labetalol Adverse Reaction (Unknown, Verified 08/21/18 16:53) Unknown lovastatin [From Mevacor] Adverse Reaction (Unknown, Verified 08/21/18 16:53) Unknown metformin [From Glucophage] Adverse Reaction (Unknown, Verified 08/21/18 16:53) Unknown niacin [From Niaspan Extended-Release] Adverse Reaction (Unknown, Verified 08/21/18 16:53) Unknown nifedipine [From Adalat] Adverse Reaction (Unknown, Verified 08/21/18 16:53) Unknown quinapril [From Accupril] Adverse Reaction (Unknown, Verified 08/21/18 16:53) Unknown repaglinide [From Prandin] Adverse Reaction (Unknown, Verified 08/21/18 16:53) Unknown rosuvastatin [From Crestor] Adverse Reaction (Unknown, Verified 08/21/18 16:53) Unknown simvastatin [From Zocor] Adverse Reaction (Unknown, Verified 08/21/18 16:53) Unknown glyburide Adverse Reaction (Unknown, Uncoded 08/21/18 16:53) Unknown nifedipine Adverse Reaction (Unknown, Uncoded 08/21/18 16:53) Unknown Home Medications: Ambulatory Orders Medication Instructions Recorded amiloride 5 mg tablet 5 mg PO BID tab 05/29/17 aspirin 81 mg tablet,delayed 81 mg PO DAILY 05/29/17 release losartan 50 mg tablet 50 mg PO DAILY 05/29/17 coenzyme Q10 100 mg capsule 100 mg PO DAILY 06/04/17 magnesium oxide 500 mg capsule 500 mg PO BID cap 06/04/17 doxazosin 4 mg tablet 2 mg PO QHS tab 09/16/17 metoprolol succinate ER 50 mg 25 mg PO DAILY tab 09/16/17 tablet,extended release 24 hr Alirocumab [Praluent Pen] 75 mg [id number] 06/29/18 Insulin Glargine [Lantus SoloStar 24 units SC BID 07/14/18 Pen] Insulin Lispro [Humalog KwikPen] See Protocol SQ ACHS 07/14/18 Linezolid 600 mg PO BID 07/14/18 Clopidogrel Bisulfate [Clopidogrel] 37.5 mg PO DAILY 08/21/18 Krill/Om-3/Dha/Epa/Phospho/Ast 1 cap PO DAILY 08/21/18 [Krill Oil 1,000 mg Softgel] Multivit-Min/FA/Lycopen/Lutein 1 tab PO DAILY 08/21/18 [Centrum Silver Tablet] - Social History Tobacco Use: non-smoker Vital Signs Temp Pulse Resp BP Pulse Ox 98.0 F 71 18 117/64 98 08/24/18 12:30 08/24/18 12:30 08/24/18 12:30 08/24/18 12:30 08/24/18 12:30 Oxygen Flow Rate (L/min) 2 Oxygen Delivery Method Room Air Weight: 90.5 kg Body Mass Index (BMI) 28.6 Finger Stick Blood Glucose 89 Microbiology Past 72 Hours 08/23/18 12:45 Gram Stain - Final Bone - Other Wound Culture - Preliminary Staphylococcus aureus 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 08/21/18 22:30 Gram Stain - Final Wound - Aerobic & Anaerobic Swabs Wound Culture - Final Escherichia coli Meth. resistant Staph. aureus Anaerobic Culture - Preliminary Checking for anaerobes, further studies to follow. 08/21/18 17:45 Gram Stain - Final Wound - Right Foot Wound Culture - Final Escherichia coli Acinetobacter baumannii Meth. resistant Staph. aureus 08/21/18 17:50 Blood Culture - Final Blood Culture (Wb) - Anticubital Right Staphylococcus aureus 08/21/18 17:35 Bacteria Detection (PCR) - Final Blood Culture (Wb) - Anticubital Left mecA Resistance Marker Staphylococcus aureus Blood Culture - Final Meth. resistant Staph. aureus 08/24/18 00:20 C. difficile DNA Amplification - Final Stool Laboratory Tests Past 24 Hrs 08/23/18 08/24/18 08/24/18 19:05 05:40 05:40 WBC 5.9 RBC 2.98 L Hgb 8.5 L 8.0 L Hct 26.3 L 24.8 L MCV 83.2 MCH 26.8 L MCHC 32.3 RDW 13.8 RDW Differential 39.5 Plt Count 275 MPV 8.9 Immature Gran % (Auto) 0.200 Neut % (Auto) 60.7 Lymph % (Auto) 26.0 [place] % (Auto) 10.1 H Eos % (Auto) 2.5 Baso % (Auto) 0.5 Absolute Neuts (auto) 3.6 Absolute Lymphs (auto) 1.54 Total Counted Not Reportable Sodium 139 Potassium 3.8 Chloride 107 Carbon Dioxide 25.0 Anion Gap 7 BUN 20 H Creatinine 1.24 Estim Creat Clear Calc 50.69 Est GFR (MDRD) Af Amer 73 Est GFR (MDRD) Non-Af 60 BUN/Creatinine Ratio 16.1 Glucose 187 H Hemoglobin A1c Calcium 8.1 L 08/24/18 05:40 WBC RBC Hgb Hct MCV MCH MCHC RDW RDW Differential Plt Count MPV Immature Gran % (Auto) Neut % (Auto) Lymph % (Auto) [place] % (Auto) Eos % (Auto) Baso % (Auto) Absolute Neuts (auto) Absolute Lymphs (auto) Total Counted Sodium Potassium Chloride Carbon Dioxide Anion Gap BUN Creatinine Estim Creat Clear Calc Est GFR (MDRD) Af Amer Est GFR (MDRD) Non-Af BUN/Creatinine Ratio Glucose Hemoglobin A1c 7.5 H Calcium - Other Studies Radiology: [] reviewed Other Studies: [] Route of nutrition/ use of supplements: [] Nutritional Intake: [] IV Site: [] Garvey Catheter: [] - Physical Exam General: Alert, Oriented x3, Cooperative, No apparent distress HEENT: Atraumatic, PERRLA, EOMI Neck: Supple, No Nodes Lungs: Clear to auscultation, Normal air movement Cardiovascular: Regular rate, Regular Rhythm, Murmur Abdomen: Soft, Non Tender, Non-Distended Extremities: No edema Skin: No rashes, Incision - R foot wrapped, - - R 3rd finger with ? small splinter hemorrhage IV Site: Peripheral, without redness Musculoskeletal: No Tenderness to Palpation of Joints or Extremities Neurological: Cranial nerves II-XII grossly intact - Assessment/Plan Antibiotics: [] Assessment/Plan: [] Active and Suspected Problems (Last Reviewed 08/21/18 @ 21:15 by Shaka De La Torre MD) Bacteremia (Acute) Type 2 diabetes mellitus with diabetic polyneuropathy (Acute) Malnutrition (Acute) Delayed wound healing (Acute) Osteomyelitis (Suspected) MRSA bacteremia due to R foot osteo and infected TMA site - wound cx with MRSA, ESBL ecoli, and AcB. Will cover with vanc/meropenem. I&D by Dr. Oliver done 08/23. Repeat bcx, check TTE. Will follow, thank you. D/w Dr. Graham.
--- NOTE | 2018-08-24 15:23 | CHAPLAIN ---
Type of Pastoral Visit _x__ Initial Visit ___ Follow-up Visit ___ On-call Visit ___ General Patient Visit ___ Spiritual Assessment ___ Family Conference ___ Bereavement ___ Rapid Response ___ Code Blue ___ Other (describe below) Pastoral Care Referral From _x__ Patient ___ Family ___ Nurse ___ Physician ___ Insole Filler ___ Piping Drafter ___ Other (describe below) Sacrament/Intervention _x__ Active listening ___ Anointing ___ Jewish ___ Bereavement ___ Communion ___ Desirae exploration ___ _x__ Life review _x__ Prayer ___ Reconciliation ___ Sacrament of Sick ___ Supportive presence ___ Wedding ___ Other (describe below) Pastoral Comments patient is very talkative; pt seeks conversation and company
[2018-08-24] MEDS: AMILORIDE HCL 5 MG TABLET PO (17:57)
[2018-08-24 18:15] VITALS: BP 102/45; PULSE 68; RESP 18; TEMP 36.7; O2SAT 98
[2018-08-24 18:25] LABS: Bedside Glucose 248 mg/dL (70-110)
[2018-08-24 20:36] VITALS: BP 123/69; PULSE 63; RESP 16; TEMP 36.9; O2SAT 97
[2018-08-24] MEDS: Doxazosin 4 MG Tablet 2 MG PO (21:45)
[2018-08-24 22:00] LABS: Bedside Glucose 224 mg/dL (70-110)
[2018-08-25] VITALS (8 sets, daily range): BP systolic 93–130; BP diastolic 42–59; PULSE 52–70; RESP 16–18; TEMP 36.1–36.8; O2SAT 96–99
[2018-08-25] MEDS: Insulin Lispro 100 UNIT/ML INSULN.PEN SC ×5 (02:39→22:19)
[2018-08-25 02:46] LABS: Bedside Glucose 172 mg/dL (70-110)
[2018-08-25 03:11] LABS: Bedside Glucose 199 mg/dL (70-110)
[2018-08-25] MEDS: Vancomycin IV 1,000 MG/200 ML BAG 200 MG IV ×2 (06:28→18:37)
[2018-08-25 06:35] LABS: Bedside Glucose 169 mg/dL (70-110)
[2018-08-25 06:42] LABS: Absolute Lymphocyte Count 2.48 X10^3/ul (0.83-4.51); Absolute Neutrophil Count 4.4 X10^3/uL (2.0-7.7); Basophil# 0.04 X10^3/uL; Basophil% 0.5 % (0-1); Eosinophil# 0.23 X10^3/uL; Eosinophils% 2.9 % (0-5); Hemoglobin 8.5 g/dl (13.0-16.5); Lymphocyte # 2.48 X10^3/ul (4.0); Lymphocyte % 31.6 % (19-41); Mean Corp Hgb Conc 32.7 g/gl (32-36); Mean Corpuscular Hgb 27.2 pg (27.0-32.0); Mean Corpuscular Volume 83.1 fL (80-94); Mean Platelet Vol. 9.2 fl (6.2-12.0); Monocyte# 0.66 X10^3/uL; Monocyte% 8.4 % (0-10); Neutrophil # 4.43 X10^3/uL (2.7-7.7); Neutrophil % 56.3 % (47-70); Platelet Count 310 K/mm3 (150-450); RBC Distribution Width CV 13.8 % (11.6-14.6); RBC Distribution Width SD 39.7 fl (35.1-43.9); Red Blood Count 3.13 M/mm3 (4.6-6.2); White Blood Count 7.9 K/mm3 (4.4-11.0)
[2018-08-25 06:43] LABS: Differential Indicated SCAN CRITERIA MET; POSITIVE COUNT NO; POSITIVE DIFFERENTIAL NO; POSITIVE MORPHOLOGY YES
[2018-08-25 06:52] LABS: Anion Gap 6 (5-15); BUN 18 mg/dL (7-18); BUN/Creat Ratio 16.5 RATIO (10-20); Calcium,Total 8.5 mg/dL (8.5-10.1); Chloride 107 mmol/L (98-107); Creatinine, Serum 1.09 mg/dL (0.70-1.30); EST Glomerular Filtration Rate 70 mL/min (>60); Est Glom Filt Rate - Afr Amer 84 mL/min (>60); Estimated Creatinine Clearance 57.67 ml/min; Glucose 169 mg/dL (74-106); Potassium 3.9 mmol/L (3.5-5.1); Sodium Level 137 mmol/L (136-145)
[2018-08-25 06:59] LABS: Vancomycin, Trough Level 19.1 ug/mL (5.0-15.0)
[2018-08-25 07:10] LABS: Differential Comment SCANNED
[2018-08-25] MEDS: Clopidogrel Bisulfate 75 MG Tablet 37.5 MG PO (07:51)
[2018-08-25] MEDS: Losartan Potassium 50 MG Tablet PO (07:51)
[2018-08-25] MEDS: Magnesium Oxide 400 MG Tablet PO ×2 (07:52→22:17)
[2018-08-25] MEDS: Aspirin E.C. 81 MG Tablet PO (07:53)
[2018-08-25] MEDS: Metoprolol(XL)Succ 25 MG Tablet PO (07:53)
[2018-08-25] MEDS: AMILORIDE HCL 5 MG TABLET PO ×2 (07:58→16:21)
--- NOTE | 2018-08-25 08:03 | PHA.PHARE_ITS ---
Consult Pharmacy has been consulted to manage selected antiobiotic: Vancomycin Type of Consult: Follow-up Suspected Infection: Skin/Soft tissue, Osteomyelitis, Bacteremia Prior Doses of Antibiotics Received/Current Regimen: Current regimen is 1000mg IV q12h Labs: Sodium 137 mmol/L (136-145) 08/25/18 06:16 Potassium 3.9 mmol/L (3.5-5.1) 08/25/18 06:16 Chloride 107 mmol/L (98-107) 08/25/18 06:16 Carbon Dioxide 24.0 mmol/L (21.0-32.0) 08/25/18 06:16 6 (5-15) 08/25/18 06:16 BUN 18 mg/dL (7-18) 08/25/18 06:16 1.09 mg/dL (0.70-1.30) 08/25/18 06:16 Est GFR (MDRD) Af Amer 84 mL/min (>60) 08/25/18 06:16 Est GFR (MDRD) Non-Af 70 mL/min (>60) 08/25/18 06:16 16.5 RATIO (10-20) 08/25/18 06:16 Glucose 169 mg/dL (74-106) H 08/25/18 06:16 Vancomycin Trough 19.1 ug/mL (5.0-15.0) H 08/25/18 06:16 Microbiology: Microbiology 08/23/18 12:45 Bone - Other Gram Stain - Final 08/23/18 12:45 Bone - Other Wound Culture - Preliminary Meth. resistant Staph. aureus Escherichia coli 08/23/18 12:45 Bone - Other Gram Stain - Final 08/23/18 12:45 Bone - Other Wound Culture - Preliminary Meth. resistant Staph. aureus Escherichia coli 08/21/18 18:28 Urine, Clean Catch Urine Culture - Final Culture exhibits no growth. 08/21/18 22:30 Wound - Aerobic & Anaerobic Swabs Gram Stain - Final 08/21/18 22:30 Wound - Aerobic & Anaerobic Swabs Wound Culture - Final Escherichia coli Meth. resistant Staph. aureus 08/21/18 22:30 Wound - Aerobic & Anaerobic Swabs Anaerobic Culture - Pr eliminary Checking for anaerobes, further studies to follow. 08/21/18 17:45 Wound - Right Foot Gram Stain - Final 08/21/18 17:45 Wound - Right Foot Wound Culture - Final Escherichia coli Acinetobacter baumannii Meth. resistant Staph. aureus 08/21/18 17:50 Blood Culture (Wb) - Anticubital Right Blood Culture - Final Staphylococcus aureus 08/21/18 17:35 Blood Culture (Wb) - Anticubital Left Bacteria Detection (PCR) - Final mecA Resistance Marker Staphylococcus aureus 08/21/18 17:35 Blood Culture (Wb) - Anticubital Left Blood Culture - Final Meth. resistant Staph. aureus 08/24/18 00:20 Stool C. difficile DNA Amplification - Final Weight used for dosin.5 kg Estimated Creatinine Clearance: 58 ml/min Goal Trough: 15-20 mcg/mL Pharmacy Plan for Drug Dosing: Trough obtained before this morning's dose (drawn 12 hours after last night's dose) was 19.1 mg/L, which is within the goal range of 15-20. Plan to continue the current dosing. Since the trough did go up from 14.3 to 19.1 with the last change in dose, we will recheck the trough again in a couple days to make sure it does not go too high above goal range. Pharmacy Service will continue to monitor and adjust dosing as required. Follow-Up Labs: Trough Vancomycin Labs to be done on [date and time ordered]: 08/27/18 06:30
--- NOTE | 2018-08-25 09:55 | PN_ITS ---
Patient Problems: Active and Suspected Problems (Last Reviewed 08/21/18 @ 21:15 by Shaka De La Torre MD) Type 2 diabetes mellitus with diabetic polyneuropathy (Acute) Malnutrition (Acute) Delayed wound healing (Acute) Osteomyelitis (Suspected) Subjective: Patient was seen and examined. No acute events overnight. No new complaints. Denies any fever or chills or shortness of breath. Objective: Physical exam: General: Alert, Oriented x3, Cooperative HEENT: Atraumatic, PERRLA, EOMI, Normocephalic Neck: Supple, No JVD, Negative Carotid Bruits Lungs: Clear to auscultation, Normal air movement, No rhonchi, No wheeze, No rales Cardiovascular: Regular rate, Regular Rhythm, Normal S1, Normal S2, No murmurs Abdomen: Bowel Sounds Present, Soft, Non Tender Extremities: No edema, Capillary Refill Less than 3 Seconds Skin: Ulcer/ Wound - Left metatarsal site wound status post debridement. Covered with Jalil wrap bandage, postoperative dressing. Dressing is dry. Musculoskeletal: No Tenderness to Palpation of Joints or Extremities, Arthritic Changes Neurological: Cranial nerves II-XII grossly intact Psych/Mental Status: Normal Affect, Appropriate Vitals/I&O's: Vital Signs Temp Pulse Resp BP Pulse Ox 97 F L 61 18 130/59 H 96 08/25/18 07:45 08/25/18 07:53 08/25/18 07:45 08/25/18 07:45 08/25/18 08:01 Oxygen Flow Rate (L/min) 2 Oxygen Delivery Method Room Air Weight: 90.5 kg Body Mass Index (BMI) 28.6 Finger Stick Blood Glucose 89 Intake and Output for Last 24 Hours 08/23/18 08/24/18 08/25/18 23:59 23:59 23:59 Intake Total 2299 / 2299 1753 / 1753 1218 / 1218 Balance 2299 / 2299 1753 / 1753 1218 / 1218 Microbiology Past 72 Hours 08/23/18 12:45 Bone - Other Gram Stain - Final 08/23/18 12:45 Bone - Other Wound Culture - Preliminary Meth. resistant Staph. aureus Escherichia coli 08/23/18 12:45 Bone - Other Anaerobic Culture - Preliminary Checking for anaerobes, further studies to follow. 08/21/18 22:30 Wound - Aerobic & Anaerobic Swabs Gram Stain - Final 08/21/18 22:30 Wound - Aerobic & Anaerobic Swabs Wound Culture - Final Escherichia coli Meth. resistant Staph. aureus 08/21/18 22:30 Wound - Aerobic & Anaerobic Swabs Anaerobic Culture - Final No anaerobic bacteria isolated. 08/23/18 12:45 Bone - Other Gram Stain - Final 08/23/18 12:45 Bone - Other Wound Culture - Preliminary Meth. resistant Staph. aureus Escherichia coli 08/23/18 12:45 Bone - Other Anaerobic Culture - Preliminary Checking for anaerobes, further studies to follow. 08/21/18 18:28 Urine, Clean Catch Urine Culture - Final Culture exhibits no growth. 08/21/18 17:45 Wound - Right Foot Gram Stain - Final 08/21/18 17:45 Wound - Right Foot Wound Culture - Final Escherichia coli Acinetobacter baumannii Meth. resistant Staph. aureus 08/21/18 17:50 Blood Culture (Wb) - Anticubital Right Blood Culture - Final Staphylococcus aureus 08/21/18 17:35 Blood Culture (Wb) - Anticubital Left Bacteria Detection (PCR) - Final mecA Resistance Marker Staphylococcus aureus 08/21/18 17:35 Blood Culture (Wb) - Anticubital Left Blood Culture - Final Meth. resistant Staph. aureus 08/24/18 00:20 Stool C. difficile DNA Amplification - Final Laboratory Results 08/24/18 02:59: POC Glucose 199 H 08/24/18 10:58: POC Glucose 268 H 08/24/18 18:05: POC Glucose 248 H 08/24/18 21:44: POC Glucose 224 H 08/25/18 02:38: POC Glucose 172 H 08/25/18 06:16: Vancomycin Trough 19.1 H 08/25/18 06:16: WBC 7.9, RBC 3.13 L, Hgb 8.5 L, Hct 26.0 L, MCV 83.1, MCH 27.2, MCHC 32.7, RDW 13.8, RDW Differential 39.7, Plt Count 310, MPV 9.2, Immature Gran % (Auto) 0.300, Neut % (Auto) 56.3, Lymph % (Auto) 31.6, [place] % (Auto) 8.4, Eos % (Auto) 2.9, Baso % (Auto) 0.5, Absolute Neuts (auto) 4.4, Absolute Lymphs (auto) 2.48, Total Counted Not Reportable, Differential Comment SCANNED 08/25/18 06:16: Sodium 137, Potassium 3.9, Chloride 107, Carbon Dioxide 24.0, Anion Gap 6, BUN 18, Creatinine 1.09, Estim Creat Clear Calc 57.67, Est GFR (MDRD) Af Amer 84, Est GFR (MDRD) Non-Af 70, BUN/Creatinine Ratio 16.5, Glucose 169 H, Calcium 8.5 08/25/18 06:27: POC Glucose 169 H Current Medications Acetaminophen (Tylenol) 650 mg PO Q6H PRN PRN PRN Reason: Mild Pain (1-3)/Temp > 100.7 F Amiloride HCl (Amiloride Hcl) 5 mg PO BIDCM [facility] Last Admin: 08/25/18 07:58 Dose: 5 mg Documented by: Aspirin (Ecotrin) 81 mg PO DAILY [facility] Last Admin: 08/25/18 07:53 Dose: 81 mg Documented by: Clopidogrel Bisulfate (Plavix) 37.5 mg PO DAILY [facility] Last Admin: 08/25/18 07:51 Dose: 37.5 mg Documented by: Dextrose (D50w Syringe) 0 gm IV X1 PRN; Protocol PRN Reason: Hypoglycemia Doxazosin Mesylate (Cardura) 2 mg PO QHS [facility] Last Admin: 08/24/18 21:45 Dose: 2 mg Documented by: Enoxaparin Sodium (Lovenox) 40 mg SC DAILY@1000 [facility] Last Admin: 08/24/18 10:59 Dose: 40 mg Documented by: Glucagon () 1 mg IM .X1 PRN PRN Reason: Hypoglycemia Vancomycin IV Pharmacy to Dose (1,250 ea/ Sodium Chloride) 500 mls @ 250 mls/hr IV Q24 PRN; Protocol Sodium Chloride () 250 mls @ 15 mls/hr IV .[id number] PRN PRN Reason: SALINE FLUSH Last Admin: 08/23/18 07:15 Dose: 15 mls/hr Documented by: Vancomycin HCl (Vancomycin) 1,000 mg in 200 mls @ 200 mls/hr IV Q12H [facility] Last Admin: 08/25/18 06:28 Dose: 200 mls/hr Documented by: Meropenem 1 gm/ Sodium (Chloride) 120 mls @ 33 mls/hr IV Q8 [facility] Last Admin: 08/25/18 05:44 Dose: 33 mls/hr Documented by: Insulin Glargine (Lantus (Bkc)) 10 units SC DINNER [facility] Last Admin: 08/24/18 18:06 Dose: 10 units Documented by: Insulin Human Lispro (Humalog Kwikpen (Bkc)) 0 unit SC ACHS & 3AM [facility]; Protocol Last Admin: 08/25/18 06:28 Dose: 1 u Documented by: Losartan Potassium (Cozaar) 50 mg PO DAILY [facility] Last Admin: 08/25/18 07:51 Dose: 50 mg Documented by: Magnesium Oxide (Mag-Ox 400) 400 mg PO BID [facility] Last Admin: 08/25/18 07:52 Dose: 400 mg Documented by: Melatonin (Melatonin) 3 mg PO QHS PRN PRN PRN Reason: INSOMNIA Metoprolol Succinate (Toprol Xl (Beta Carloz)) 25 mg PO DAILY [facility] Last Admin: 08/25/18 07:53 Dose: 25 mg Documented by: Morphine Sulfate () 2 mg IV Q3H PRN PRN PRN Reason: Severe pain (7-10/10) Nutritional Formula (Silviano - Eden Flavor) 1 packet PO BIDCM [facility] Last Admin: 08/25/18 07:57 Dose: 1 packet Documented by: Nutritional Formula (Lactose Free) (Glucerna Shake) 120 ml PO 4X/DAY [facility] Last Admin: 08/25/18 07:54 Dose: Not Given Documented by: Ondansetron HCl (Zofran) 4 mg IV Q8H PRN PRN PRN Reason: NAUSEA/VOMITING Oxycodone HCl (Oxyir) 5 mg PO Q4H PRN PRN PRN Reason: Moderate Pain (4-6/10) Sodium Chloride () 5 - 15 ml IV UD PRN PRN Reason: SALINE FLUSH Last Admin: 08/24/18 13:10 Dose: 10 ml Documented by: Sodium Hypochlorite (Dakins Solution 0.25% (1/2 Strength)) 1 applic TOPICAL BID [facility]; Protocol Last Admin: 08/24/18 21:46 Dose: Not Given Documented by: Medical Necessity - Tobacco Use Smoking Status: Never smoker Tobacco Use: Non-smoker Assessment/Plan All Active Problems (Last Reviewed 08/21/18 @ 21:15 by Shaka De La Torre MD) Bacteremia (Acute) Cellulitis of right lower extremity (Acute) Type 2 diabetes mellitus with diabetic polyneuropathy (Acute) Malnutrition (Acute) Delayed wound healing (Acute) DM type 2, uncontrolled, with renal complications (Acute) 78-year-old male with past medical history of type 2 diabetes, 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 He is status post debridement of nonviable soft tissue and bone in the right foot. 1. Acute MRSA/E. Coli right foot stump osteomyelitis/cellulitis, status post wound debridement, POD #2 Operative cultures are pending from the wound and the bone. Previous wound cultures grew E. coli and MRSA. Blood cultures also positive for MRSA On IV vancomycin and Zosyn, ID consulted, no fevers, no leukocytosis 2. MRSA bacteremia, on IV Vancomycin and Meropenem, 2d-echo is unremarkable, repeat blood cultures are pending. 3. Type II DM complicated with diabetic polyneuropathy, sugars controlled, continue on Lantus and insulin sliding scale 4. Hypertension, controlled, continue monitor on losartan, metoprolol and doxazosin 5. Malnutrition, severe secondary to suboptimal energy intake, python web developer consulted and following. 6. DVT prophylaxis Lovenox subcu Code Visit Inpatient E&M: 34608 Subs Hosp L2
--- NOTE | 2018-08-25 10:16 | CASEMGMT ---
TIFFANY ARREOLA in to discuss discharge plans with patient. Per ID, patient will need 6-8 weeks of IV ATBs at discharge. TIFFANY ARREOLA discussed options of HHC vs SNF for IV ATBs. Patient's only concern at this time is what this hospital stay and IV ATBs are going to cost him. TIFFANY ARREOLA explained to patient that TIFFANY ARREOLA is not aware of cost and that Patient Financial Billing would know more information. Patient then wanted to discuss the dates that he was here last time, TIFFANY ARREOLA pulled up information regarding previous visits and patient states that [facility] records are wrong. TIFFANY ARREOLA asked patient if it was ok for CM to call and discuss discharge needs with his , patient gave permission. TIFFANY ARREOLA called and spoke to , Kassandra, regarding needs at discharge. Kassandra states that she would like patient to go to SNF for a few weeks and then transition home with HHC and IV ATBs. TIFFANY ARREOLA asked Kassandra if she would be in later today to discuss plans with patient and CM. Kassandra will be in later around [id number] and CM will plan to meet in patient's room to discuss discharge needs with patient. CM will continue to follow this patient and plan for a safe discharge.
[2018-08-25] MEDS: Enoxaparin 40 MG/0.4 ML Syringe SC (10:19)
--- NOTE | 2018-08-25 10:21 | PN_ITS ---
Patient Problems: Active and Suspected Problems (Last Reviewed 08/21/18 @ 21:15 by Shaka De La Torre MD) Type 2 diabetes mellitus with diabetic polyneuropathy (Acute) Malnutrition (Acute) Delayed wound healing (Acute) Osteomyelitis (Suspected) Subjective: This 78-year-old male was seen bedside today post operative day #2 right foot revisional TMA with debridement of non viable soft tissue and bone by Dr. Contreras. He denies fever, chills, nausea, vomiting, calf pain, chest pain, shortness of breath. His pain remains well controlled at this time. Resting comfortably in bed currently. - Physical Exam General: Alert, Oriented x3, Cooperative Extremities: No cyanosis, Capillary Refill Less than 3 Seconds - Dorsal plantar stump site right foot, No Calf Tenderness - Negative Ceferino and Sloan sign right, Diminished Peripheral Pulses, Edema - decreased right foot Skin: Incision - Site remains well aligned with retention sutures intact. Continues to be no purulence or odor to surgical site at this time. Erythema remains resolved at this time. The adjacent skin is hairless and atrophic Musculoskeletal: No Tenderness to Palpation of Joints or Extremities, Muscle Wasting, - - Right transmetatarsal amputation. Neurological: - - Lack of normal epicritic sensation Psych/Mental Status: Normal Affect, Appropriate Vital Signs Temp Pulse Resp BP Pulse Ox 97 F L 61 18 130/59 H 96 08/25/18 07:45 08/25/18 07:53 08/25/18 07:45 08/25/18 07:45 08/25/18 08:01 Oxygen Flow Rate (L/min) 2 Oxygen Delivery Method Room Air Weight: 90.5 kg Body Mass Index (BMI) 28.6 Finger Stick Blood Glucose 89 Intake and Output for Last 24 Hours 08/23/18 08/24/18 08/25/18 23:59 23:59 23:59 Intake Total 2299 / 2299 1753 / 1753 1218 / 1218 Balance 2299 / 2299 1753 / 1753 1218 / 1218 Microbiology Past 72 Hours 08/23/18 12:45 Gram Stain - Final Bone - Other Wound Culture - Preliminary Meth. resistant Staph. aureus Escherichia coli Anaerobic Culture - Preliminary Checking for anaerobes, further studies to follow. 08/21/18 22:30 Gram Stain - Final Wound - Aerobic & Anaerobic Swabs Wound Culture - Final Escherichia coli Meth. resistant Staph. aureus Anaerobic Culture - Final No anaerobic bacteria isolated. 08/23/18 12:45 Gram Stain - Final Bone - Other Wound Culture - Preliminary Meth. resistant Staph. aureus Escherichia coli Anaerobic Culture - Preliminary Checking for anaerobes, further studies to follow. 08/21/18 18:28 Urine Culture - Final Urine, Clean Catch Culture exhibits no growth. 08/21/18 17:45 Gram Stain - Final Wound - Right Foot Wound Culture - Final Escherichia coli Acinetobacter baumannii Meth. resistant Staph. aureus 08/21/18 17:50 Blood Culture - Final Blood Culture (Wb) - Anticubital Right Staphylococcus aureus 08/21/18 17:35 Bacteria Detection (PCR) - Final Blood Culture (Wb) - Anticubital Left mecA Resistance Marker Staphylococcus aureus Blood Culture - Final Meth. resistant Staph. aureus 08/24/18 00:20 C. difficile DNA Amplification - Final Stool Laboratory Tests Past 24 Hrs 08/25/18 08/25/18 08/25/18 06:16 06:16 06:16 WBC 7.9 RBC 3.13 L Hgb 8.5 L Hct 26.0 L MCV 83.1 MCH 27.2 MCHC 32.7 RDW 13.8 RDW Differential 39.7 Plt Count 310 MPV 9.2 Immature Gran % (Auto) 0.300 Neut % (Auto) 56.3 Lymph % (Auto) 31.6 [place] % (Auto) 8.4 Eos % (Auto) 2.9 Baso % (Auto) 0.5 Absolute Neuts (auto) 4.4 Absolute Lymphs (auto) 2.48 Total Counted Not Reportable Differential Comment SCANNED Sodium 137 Potassium 3.9 Chloride 107 Carbon Dioxide 24.0 Anion Gap 6 BUN 18 Creatinine 1.09 Estim Creat Clear Calc 57.67 Est GFR (MDRD) Af Amer 84 Est GFR (MDRD) Non-Af 70 BUN/Creatinine Ratio 16.5 Glucose 169 H Calcium 8.5 Vancomycin Trough 19.1 H POC Glucose 08/25/18 08/25/18 08/24/18 06:27 02:38 21:44 POC Glucose 169 H 172 H 224 H 08/24/18 08/24/18 08/24/18 18:05 10:58 02:59 POC Glucose 248 H 268 H 199 H Medical Necessity - Tobacco Use Smoking Status: Never smoker Tobacco Use: Non-smoker Assessment/Plan All Active Problems (Last Reviewed 08/21/18 @ 21:15 by Shaka De La Torre MD) Bacteremia (Acute) Cellulitis of right lower extremity (Acute) Type 2 diabetes mellitus with diabetic polyneuropathy (Acute) Malnutrition (Acute) Delayed wound healing (Acute) DM type 2, uncontrolled, with renal complications (Acute) Status post day #2 right revisional transmetatarsal amputation with debridement of nonviable soft tissue and bone with retention suture placement for treatment of cellulitis and osteomyelitis Bacteremia Diabetes with neuropathy Delayed healing Malnutrition Other comorbidities: CAD, history of acute kidney injury, hypertension, hyperlipidemia Patient was carefully examined and evaluated resting in bed this morning. WBC 7.9. His vitals are stable and he remains afebrile. Wound cultures from the clearance fragment from surgery yesterday was reviewed with staph and e.coli. The pathology clearance fragment is pending. He is on IV antibiotics currently. Infectious disease is also on consultation and appreciated. Dressings changed with Dakin's soaked gauze wick into the surgical site again today. To keep clean and dry. No clinical signs of any worsening infection today. To remain with strict nonweightbearing status to the right lower extremity. He is working with physical therapy and uses a walker. To keep his limb elevated at rest. Vascular surgery placed on consult on an inpatient versus outpatient basis due to continued dysvascular appearance and lack of healing. His previous noninvasive vascular studies were noted with a relatively normal ankle-brachial index. Podiatry will continue to follow him close while in house. Medical management and DVT prophylaxis per medicine team is greatly appreciated. Continue to recommend [facility] facility placement at time of discharge.
--- NOTE | 2018-08-25 10:28 | NURSING ---
wound photo: right foot
--- NOTE | 2018-08-25 10:29 | PN.ID_ITS ---
Patient Problems: Active and Suspected Problems (Last Reviewed 08/21/18 @ 21:15 by Shaka De La Torre MD) Type 2 diabetes mellitus with diabetic polyneuropathy (Acute) Malnutrition (Acute) Delayed wound healing (Acute) Osteomyelitis (Suspected) Subjective: Feeling ok, still some loose stool, no fever, no abd pain. - Physical Exam General: Alert, Cooperative, No apparent distress Lungs: Clear to auscultation, Normal air movement Cardiovascular: Regular rate, Regular Rhythm Abdomen: Soft, Non Tender, Non-Distended Skin: Ulcer/ Wound - reviewed photo of foot Vital Signs Temp Pulse Resp BP Pulse Ox 97 F L 61 18 130/59 H 96 08/25/18 07:45 08/25/18 07:53 08/25/18 07:45 08/25/18 07:45 08/25/18 08:01 Oxygen Flow Rate (L/min) 2 Oxygen Delivery Method Room Air Weight: 90.5 kg Body Mass Index (BMI) 28.6 Finger Stick Blood Glucose 89 Intake and Output for Last 24 Hours 08/23/18 08/24/18 08/25/18 23:59 23:59 23:59 Intake Total 2299 / 2299 1753 / 1753 1218 / 1218 Balance 2299 / 2299 1753 / 1753 1218 / 1218 Microbiology Past 72 Hours 08/23/18 12:45 Gram Stain - Final Bone - Other Wound Culture - Preliminary Meth. resistant Staph. aureus Escherichia coli Anaerobic Culture - Preliminary Checking for anaerobes, further studies to follow. 08/21/18 22:30 Gram Stain - Final Wound - Aerobic & Anaerobic Swabs Wound Culture - Final Escherichia coli Meth. resistant Staph. aureus Anaerobic Culture - Final No anaerobic bacteria isolated. 08/23/18 12:45 Gram Stain - Final Bone - Other Wound Culture - Preliminary Meth. resistant Staph. aureus Escherichia coli Anaerobic Culture - Preliminary Checking for anaerobes, further studies to follow. 08/21/18 18:28 Urine Culture - Final Urine, Clean Catch Culture exhibits no growth. 08/21/18 17:45 Gram Stain - Final Wound - Right Foot Wound Culture - Final Escherichia coli Acinetobacter baumannii Meth. resistant Staph. aureus 08/21/18 17:50 Blood Culture - Final Blood Culture (Wb) - Anticubital Right Staphylococcus aureus 08/21/18 17:35 Bacteria Detection (PCR) - Final Blood Culture (Wb) - Anticubital Left mecA Resistance Marker Staphylococcus aureus Blood Culture - Final Meth. resistant Staph. aureus 08/24/18 00:20 C. difficile DNA Amplification - Final Stool Laboratory Tests Past 24 Hrs 08/25/18 08/25/18 08/25/18 06:16 06:16 06:16 WBC 7.9 RBC 3.13 L Hgb 8.5 L Hct 26.0 L MCV 83.1 MCH 27.2 MCHC 32.7 RDW 13.8 RDW Differential 39.7 Plt Count 310 MPV 9.2 Immature Gran % (Auto) 0.300 Neut % (Auto) 56.3 Lymph % (Auto) 31.6 [place] % (Auto) 8.4 Eos % (Auto) 2.9 Baso % (Auto) 0.5 Absolute Neuts (auto) 4.4 Absolute Lymphs (auto) 2.48 Total Counted Not Reportable Differential Comment SCANNED Sodium 137 Potassium 3.9 Chloride 107 Carbon Dioxide 24.0 Anion Gap 6 BUN 18 Creatinine 1.09 Estim Creat Clear Calc 57.67 Est GFR (MDRD) Af Amer 84 Est GFR (MDRD) Non-Af 70 BUN/Creatinine Ratio 16.5 Glucose 169 H Calcium 8.5 Vancomycin Trough 19.1 H POC Glucose 08/25/18 08/25/18 08/24/18 06:27 02:38 21:44 POC Glucose 169 H 172 H 224 H 08/24/18 08/24/18 08/24/18 18:05 10:58 02:59 POC Glucose 248 H 268 H 199 H Medical Necessity - Tobacco Use Smoking Status: Never smoker Tobacco Use: Non-smoker Route of nutrition/ use of supplements: [] Nutritional Intake: [] IV Site: [] Garvey Catheter: [] - Assessment/Plan Antibiotics: [] Assessment/Plan: [] Active and Suspected Problems (Last Reviewed 08/21/18 @ 21:15 by Shaka De La Torre MD) Bacteremia (Acute) Type 2 diabetes mellitus with diabetic polyneuropathy (Acute) Malnutrition (Acute) Delayed wound healing (Acute) Osteomyelitis (Suspected) MRSA bacteremia due to R foot osteo and infected TMA site - wound cx with MRSA, ESBL ecoli, and AcB. Cont vanc/meropenem. I&D by Dr. Oliver done 08/23. Repeat bcx today. TTE neg for veg. Once bcx neg for 48-72 hours, plan will be for picc line and 6-8 weeks of iv vanc and either meropenem or cipro/flagyl. Will follow, d/w therapeutic case manager.
[2018-08-25 12:30] LABS: Bedside Glucose 258 mg/dL (70-110)
--- NOTE | 2018-08-25 15:00 | CASEMGMT ---
TIFFANY ARREOLA in to discuss discharge plans with patient and , Kassandra. RN MAXWELL discussed options for SNF and HHC. After discussing with and patient, they are agreeble to SNF. Patient's first choice for SNF is [facility], second choice [facility]. TIFFANY ARREOLA updated JAZMÍN Paez regarding request for SNF at discharge.
[2018-08-25 16:35] LABS: Bedside Glucose 192 mg/dL (70-110)
--- NOTE | 2018-08-25 17:23 | CASEMGMT ---
Social Work Note RN MAXWELL Baum updated this worker that pt and pt's are agreeable to SNF and first choice is [facility] and second choice is [facility]. JAZMÍN faxed referral to [facility]. JAZMÍN placed a call to Tiny at [facility] and updated her on referral. Tiny to review referral and give this worker a call back. Plan: [facility] pending acceptance Marianne Paez POWER LINEMAN, NURSING TECHNICIAN
[2018-08-25] MEDS: Doxazosin 4 MG Tablet 2 MG PO (22:17)
[2018-08-25 22:25] LABS: Bedside Glucose 189 mg/dL (70-110)
[2018-08-26] VITALS (9 sets, daily range): BP systolic 106–126; BP diastolic 53–63; PULSE 53–70; RESP 16–18; TEMP 35.9–36.6; O2SAT 96–98
[2018-08-26] MEDS: Insulin Lispro 100 UNIT/ML INSULN.PEN SC ×5 (03:35→21:52)
[2018-08-26 04:17] LABS: Bedside Glucose 174 mg/dL (70-110)
[2018-08-26] MEDS: Vancomycin IV 1,000 MG/200 ML BAG 200 MG IV ×2 (06:28→18:30)
[2018-08-26] MEDS: Losartan Potassium 50 MG Tablet PO (09:10)
[2018-08-26] MEDS: Aspirin E.C. 81 MG Tablet PO (09:10)
[2018-08-26] MEDS: Enoxaparin 40 MG/0.4 ML Syringe SC (09:10)
[2018-08-26] MEDS: Clopidogrel Bisulfate 75 MG Tablet 37.5 MG PO (09:11)
[2018-08-26] MEDS: AMILORIDE HCL 5 MG TABLET PO ×2 (09:12→16:06)
--- NOTE | 2018-08-26 10:07 | CASEMGMT ---
Social Work Note JAZMÍN received call from Rina at [facility] as Tiny is out out of the office. Rina asked this worker how many days pt has used at previous SNF. JAZMÍN placed a call to [facility] and spoke with Antoinette. Antoinette states pt was at [facility] July 02, 2018 - August 17, 2018 and used 47 days. JAZMÍN placed a call to [facility] spoke with Rina and updated her on days used at SNF. JAZMÍN informed Rina that blood cultures are still pending and once IV antibiotics are known, this worker will update her. Rina states understanding, states they are able to accept pt pending IV antibiotics. Plan: [facility] Marianne Paez MONOTYPER, WOOD SAWYER
[2018-08-26 11:01] LABS: Bedside Glucose 198 mg/dL (70-110)
--- NOTE | 2018-08-26 11:24 | PCM.PN.HOSP ---
Patient Problems: Active and Suspected Problems (Last Reviewed 08/26/18 @ 12:11 by Chris Marin MD) PAD (peripheral artery disease) (Acute) Type 2 diabetes mellitus with diabetic polyneuropathy (Acute) Malnutrition (Acute) Delayed wound healing (Acute) Osteomyelitis (Suspected) Subjective: Patient was seen and examined. No new complaints, no acute events overnight. Waiting on blood cultures and possible PICC line. Patient will be discharged [facility] to [facility]. Objective: Physical exam: General: Alert, Oriented x3, Cooperative HEENT: Atraumatic, PERRLA, EOMI, Normocephalic Neck: Supple, No JVD, Negative Carotid Bruits Lungs: Clear to auscultation, Normal air movement, No rhonchi, No wheeze, No rales Cardiovascular: Regular rate, Regular Rhythm, Normal S1, Normal S2, No murmurs Abdomen: Bowel Sounds Present, Soft, Non Tender Extremities: No edema, Capillary Refill Less than 3 Seconds Skin: Ulcer/ Wound - Left metatarsal site wound status post debridement. Covered with Jalil wrap bandage, postoperative dressing. Dressing is dry. Musculoskeletal: No Tenderness to Palpation of Joints or Extremities, Arthritic Changes Neurological: Cranial nerves II-XII grossly intact Psych/Mental Status: Normal Affect, Appropriate Vitals/I&O's: Vital Signs Temp Pulse Resp BP Pulse Ox 97.6 F L 60 16 123/61 H 97 08/26/18 08:55 08/26/18 08:59 08/26/18 08:55 08/26/18 08:55 08/26/18 08:55 Oxygen Flow Rate (L/min) 2 Oxygen Delivery Method Room Air Weight: 90.5 kg Body Mass Index (BMI) 28.6 Finger Stick Blood Glucose 89 Intake and Output for Last 24 Hours 08/24/18 08/25/18 08/26/18 23:59 23:59 23:59 Intake Total 1753 / 1753 2974 / 3409 1292 / 1292 Balance 1753 / 1753 2974 / 3409 1292 / 1292 Microbiology Past 72 Hours 08/23/18 12:45 Bone - Other Gram Stain - Final 08/23/18 12:45 Bone - Other Wound Culture - Preliminary Meth. resistant Staph. aureus Escherichia coli 08/23/18 12:45 Bone - Other Anaerobic Culture - Final No anaerobic bacteria isolated. 08/23/18 12:45 Bone - Other Gram Stain - Final 08/23/18 12:45 Bone - Other Wound Culture - Final Meth. resistant Staph. aureus Escherichia coli 08/23/18 12:45 Bone - Other Anaerobic Culture - Final No anaerobic bacteria isolated. 08/24/18 13:10 Blood Culture (Wb) - Anticubital Right Blood Culture - Preliminary No growth in 48 hours. 08/21/18 22:30 Wound - Aerobic & Anaerobic Swabs Gram Stain - Final 08/21/18 22:30 Wound - Aerobic & Anaerobic Swabs Wound Culture - Final Escherichia coli Meth. resistant Staph. aureus 08/21/18 22:30 Wound - Aerobic & Anaerobic Swabs Anaerobic Culture - Final No anaerobic bacteria isolated. 08/21/18 18:28 Urine, Clean Catch Urine Culture - Final Culture exhibits no growth. 08/21/18 17:45 Wound - Right Foot Gram Stain - Final 08/21/18 17:45 Wound - Right Foot Wound Culture - Final Escherichia coli Acinetobacter baumannii Meth. resistant Staph. aureus 08/21/18 17:50 Blood Culture (Wb) - Anticubital Right Blood Culture - Final Staphylococcus aureus 08/21/18 17:35 Blood Culture (Wb) - Anticubital Left Bacteria Detection (PCR) - Final mecA Resistance Marker Staphylococcus aureus 08/21/18 17:35 Blood Culture (Wb) - Anticubital Left Blood Culture - Final Meth. resistant Staph. aureus 08/24/18 00:20 Stool C. difficile DNA Amplification - Final Laboratory Results 08/25/18 12:25: POC Glucose 258 H 08/25/18 16:11: POC Glucose 192 H 08/25/18 22:12: POC Glucose 189 H 08/26/18 03:25: POC Glucose 174 H 08/26/18 10:50: POC Glucose 198 H Current Medications Acetaminophen (Tylenol) 650 mg PO Q6H PRN PRN PRN Reason: Mild Pain (1-3)/Temp > 100.7 F Amiloride [facility] ([facility] Hcl[facility] Last Admin: 08/26/18 09:12 Dose: 5 mg Documented by: Aspirin (Ecotrin) 81 mg PO DAILY COUNT INCLUDES THE [facility] Last Admin: 08/26/18 09:10 Dose: 81 mg Documented by: Clopidogrel Bisulfate (Plavix) 37.5 mg PO DAILY COUNT INCLUDES THE [facility] Last Admin: 08/26/18 09:11 Dose: 37.5 mg Documented by: Dextrose (D50w Syringe) 0 gm IV X1 PRN; Protocol PRN Reason: Hypoglycemia Doxazosin Mesylate (Cardura) 2 mg PO QHS COUNT INCLUDES THE [facility] Last Admin: 08/25/18 22:17 Dose: 2 mg Documented by: Enoxaparin Sodium (Lovenox) 40 mg SC DAILY@1000 MARIUL Last Admin: 08/26/18 09:10 Dose: 40 mg Documented by: Glucagon () 1 mg IM .X1 PRN PRN Reason: Hypoglycemia Vancomycin IV Pharmacy to Dose (1,250 ea/ Sodium Chloride) 500 mls @ 250 mls/hr IV Q24 PRN; Protocol Sodium Chloride () 250 mls @ 15 mls/hr IV .[id number] PRN PRN Reason: SALINE FLUSH Last Admin: 08/23/18 07:15 Dose: 15 mls/hr Documented by: Vancomycin HCl (Vancomycin) 1,000 mg in 200 mls @ 200 mls/hr IV Q12H COUNT INCLUDES THE [facility] Last Admin: 08/26/18 06:28 Dose: 200 mls/hr Documented by: Meropenem 1 gm/ Sodium (Chloride) 120 mls @ 33 mls/hr IV Q8 COUNT INCLUDES THE [facility] Last Admin: 08/26/18 06:28 Dose: 33 mls/hr Documented by: Insulin Glargine (Lantus (Bkc)) 10 units SC DINNER COUNT INCLUDES THE [facility] Last Admin: 08/25/18 16:15 Dose: 10 units Documented by: Insulin Human Lispro (Humalog Kwikpen (Bkc)) 0 unit SC ACHS & 3AM MARILU; Protocol Last Admin: 08/26/18 10:52 Dose: 1 u Documented by: Lactobacillus Acidophilus (Acidophilus) 1 tablet PO BID COUNT INCLUDES THE [facility] Last Admin: 08/26/18 09:11 Dose: 1 tablet Documented by: Losartan Potassium (Cozaar) 50 mg PO DAILY COUNT INCLUDES THE [facility] Last Admin: 08/26/18 09:10 Dose: 50 mg Documented by: Melatonin (Melatonin) 3 mg PO QHS PRN PRN PRN Reason: INSOMNIA Metoprolol Succinate (Toprol Xl (Beta Carloz)) 25 mg PO DAILY COUNT INCLUDES THE [facility] Last Admin: 08/25/18 07:53 Dose: 25 mg Documented by: Morphine Sulfate () 2 mg IV Q3H PRN PRN PRN Reason: Severe pain (7-10/10) Nutritional Formula (Silviano - [place] Flavor) 1 packet PO BIDCM MARILU Last Admin: 08/26/18 09:10 Dose: 1 packet Documented by: Ondansetron HCl (Zofran) 4 mg IV Q8H PRN PRN PRN Reason: NAUSEA/VOMITING Oxycodone HCl (Oxyir) 5 mg PO Q4H PRN PRN PRN Reason: Moderate Pain (4-6/10) Sodium Chloride () 5 - 15 ml IV UD PRN PRN Reason: SALINE FLUSH Last Admin: 08/24/18 13:10 Dose: 10 ml Documented by: Sodium Hypochlorite (Dakins Solution 0.25% (1/2 Strength)) 1 applic TOPICAL BID MARILU; Protocol Last Admin: 08/26/18 08:22 Dose: 1 applic Documented by: Medical Necessity - Tobacco Use Smoking Status: Never smoker Tobacco Use: Non-smoker Assessment/Plan All Active Problems (Last Reviewed 08/26/18 @ 12:11 by Chris Marin MD) PAD (peripheral artery disease) (Acute) Bacteremia (Acute) Cellulitis of right lower extremity (Acute) Type 2 diabetes mellitus with diabetic polyneuropathy (Acute) Malnutrition (Acute) Delayed wound healing (Acute) DM type 2, uncontrolled, with renal complications (Acute) 78-year-old male with past medical history of type 2 diabetes, 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 He is status post debridement of nonviable soft tissue and bone in the right foot. 1. Acute MRSA/E. Coli right foot stump osteomyelitis/cellulitis, status post wound debridement, POD #3 Operative cultures are pending from the wound and the bone. Previous wound cultures grew E. coli and MRSA. Blood cultures also positive for MRSA On IV vancomycin and Zosyn, ID consulted, no fevers, no leukocytosis 2. MRSA bacteremia, on IV Vancomycin and Meropenem, 2d-echo is unremarkable, repeat blood cultures are pending. 3. Type II DM complicated with diabetic polyneuropathy, sugars are controlled, continue on Lantus and insulin sliding scale 4. Hypertension, controlled, continue monitor on losartan, metoprolol and doxazosin 5. Malnutrition, severe secondary to suboptimal energy intake, entry level drafter consulted and following. 6. DVT prophylaxis Lovenox subcu 7. Disposition: Awaiting results of repeat blood cultures as well as PICC line placements for discharge to [facility] facility. Code Visit Inpatient E&M: 44518 Subs Hosp L2
--- NOTE | 2018-08-26 12:09 | PCM.CONS.GEN ---
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 He believes this is secondary to changing in with different but diabetic medications he was working with. 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 Still has some problems with this healing is had further debridement of this wound 2 days ago. Prior to his initial surgery he did have vascular lab studies with an ANTONIETTA 1.24 on the right and 1.14 on the left both of these with triphasic flow noted. Digit brachial index on the left was 0.77. Also appeared to also have normal waveforms on the PVRs throughout both lower extremities. Vascular surgery consulted since the poor healing through this. But on exam he has strong triphasic signals noted at the ankle CABG in 1993. No stroke. Hypertension on meds. He has been diabetic since the . No prior PAD or wounds. No claudication or rest pain symptoms prior to this. Patient never smoked. Hyperlipidemia meds. [] Past Medical History Past Medical History (Chronic Problems): Chronic Problems (Last Reviewed 08/21/18 @ 21:15 by Shaka De La Torre MD) Ulcer with necrosis of bone (Chronic) Hyperlipidemia associated with type 2 diabetes mellitus (Chronic) Managed by Dr. King. New chol agent being used. Chol now 164, LDL 75. Taking monthly injection. Essential hypertension with goal blood pressure less than 130/80 (Chronic) Hx of elevated BG in medical office. Monitors at home daily with findings of normal BP. No change in regimen. Uncontrolled type 2 diabetes mellitus, with long-term current use of insulin (Chronic) He agrees to take insulin as directed. A1c now 8.6 Medical History: Medical History (Last Reviewed 08/26/18 @ 12:11 by Chris Marin MD) Bone fracture T14.8XXA Diabetes type 2, controlled E11.9 Dx : 1996 Last exacerbation : DKA : never Hypoglycemic episode : never ER visit : never Hearing problem H91.90 High cholesterol E78.00 High triglycerides E78.1 Pneumonia J18.9 Vascular disease I99.9 HTN (hypertension) I10 Allergies Iodinated Contrast- Oral and IV Dye [CONTRASTS] Allergy (Verified 08/21/18 16:53) Rash amlodipine [From Norvasc] Adverse Reaction (Unknown, Verified 08/21/18 16:53) Unknown atorvastatin [From Lipitor] Adverse Reaction (Unknown, Verified 08/21/18 16:53) Unknown cerivastatin [From Baycol] Adverse Reaction (Unknown, Verified 08/21/18 16:53) Unknown enalapril Adverse Reaction (Unknown, Verified 08/21/18 16:53) Unknown exenatide [From Byetta] Adverse Reaction (Unknown, Verified 08/21/18 16:53) Unknown ezetimibe [From Zetia] Adverse Reaction (Unknown, Verified 08/21/18 16:53) Unknown fenofibrate [From Tricor] Adverse Reaction (Unknown, Verified 08/21/18 16:53) Unknown gemfibrozil Adverse Reaction (Unknown, Verified 08/21/18 16:53) Unknown glipizide [From Glucotrol] Adverse Reaction (Unknown, Verified 08/21/18 16:53) Unknown labetalol Adverse Reaction (Unknown, Verified 08/21/18 16:53) Unknown lovastatin [From Mevacor] Adverse Reaction (Unknown, Verified 08/21/18 16:53) Unknown metformin [From Glucophage] Adverse Reaction (Unknown, Verified 08/21/18 16:53) Unknown niacin [From Niaspan Extended-Release] Adverse Reaction (Unknown, Verified 08/21/18 16:53) Unknown nifedipine [From Adalat] Adverse Reaction (Unknown, Verified 08/21/18 16:53) Unknown quinapril [From Accupril] Adverse Reaction (Unknown, Verified 08/21/18 16:53) Unknown repaglinide [From Prandin] Adverse Reaction (Unknown, Verified 08/21/18 16:53) Unknown rosuvastatin [From Crestor] Adverse Reaction (Unknown, Verified 08/21/18 16:53) Unknown simvastatin [From Zocor] Adverse Reaction (Unknown, Verified 08/21/18 16:53) Unknown glyburide Adverse Reaction (Unknown, Uncoded 08/21/18 16:53) Unknown nifedipine Adverse Reaction (Unknown, Uncoded 08/21/18 16:53) Unknown Home Medications: Ambulatory Orders Medication Instructions Recorded amiloride 5 mg tablet 5 mg PO BID tab 05/29/17 aspirin 81 mg tablet,delayed 81 mg PO DAILY 05/29/17 release losartan 50 mg tablet 50 mg PO DAILY 05/29/17 coenzyme Q10 100 mg capsule 100 mg PO DAILY 06/04/17 magnesium oxide 500 mg capsule 500 mg PO BID cap 06/04/17 doxazosin 4 mg tablet 2 mg PO QHS tab 09/16/17 metoprolol succinate ER 50 mg 25 mg PO DAILY tab 09/16/17 tablet,extended release 24 hr Alirocumab [Praluent Pen] 75 mg SQ [id number] 06/29/18 Insulin Glargine [Lantus SoloStar 24 units SC BID 07/14/18 Pen] Insulin Lispro [Humalog KwikPen] See Protocol SQ ACHS 07/14/18 Linezolid 600 mg PO BID 07/14/18 Clopidogrel Bisulfate [Clopidogrel] 37.5 mg PO DAILY 08/21/18 Krill/Om-3/Dha/Epa/Phospho/Ast 1 cap PO DAILY 08/21/18 [Krill Oil 1,000 mg Softgel] Multivit-Min/FA/Lycopen/Lutein 1 tab PO DAILY 08/21/18 [Centrum Silver Tablet] Meropenem [Merrem] 1 gm IV Q8 40 Days #40 vial 08/26/18 Vancomycin IV [Vancomycin] 1,000 mg IV Q12H 40 Days #80 bag 08/26/18 Surgical History: Surgical History (Last Reviewed 08/26/18 @ 12:12 by Chris Marin MD) H/O heart surgery Z98.890 History of lung surgery Z98.890 Lives: Spouse/ Significant Other Smoking Status: Never smoker Tobacco Use: Non-smoker - *Family History Maternal History Items: Diabetes, Heart Disease, Stroke Paternal History Items: Heart Disease, Hypertension, - - His father from heart attack at age 56. Review of Systems Constitutional: Denies: Chills, Fever, Weight Change HEENT: Denies: Head Aches, Sinus Congestion, Sinus Drainage Cardiovascular: Denies: Chest Pain, Palpitations Respiratory: Denies: Cough, Shortness of breath at rest, Sputum production Gastrointestinal: Denies: Abdominal Pain, Nausea, Vomiting Genitourinary: Denies: Dysuria Skin: Reports: Wounds - Right foot wound Patient Problems: Active and Suspected Problems (Last Reviewed 08/21/18 @ 21:15 by Shaka De La Torre MD) PAD (peripheral artery disease) (Acute) Type 2 diabetes mellitus with diabetic polyneuropathy (Acute) Malnutrition (Acute) Delayed wound healing (Acute) Osteomyelitis (Suspected) - Physical Exam General: Alert, Oriented x3 HEENT: Atraumatic, PERRLA Oral: Moist Mucosa Neck: No JVD Lungs: Clear to auscultation Cardiovascular: Regular rate Abdomen: Soft Extremities: - - Dressing intact right foot. With a Doppler was able to get triphasic of the dorsalis pedis and the posterior tibial right above the ankle Had a strong normal palpable popliteal artery bilateral. Vital Signs Temp Pulse Resp BP Pulse Ox 97.6 F L 60 16 123/61 H 97 08/26/18 08:55 08/26/18 08:59 08/26/18 08:55 08/26/18 08:55 08/26/18 08:55 Oxygen Flow Rate (L/min) 2 Oxygen Delivery Method Room Air Weight: 199 lb 8.293 oz Body Mass Index (BMI) 28.6 Finger Stick Blood Glucose 89 Intake and Output for Last 24 Hours 08/24/18 08/25/18 08/26/18 23:59 23:59 23:59 Intake Total 1753 / 1753 2974 / 3409 1292 / 1292 Balance 1753 / 1753 2974 / 3409 1292 / 1292 Microbiology Past 72 Hours 08/23/18 12:45 Gram Stain - Final Bone - Other Wound Culture - Preliminary Meth. resistant Staph. aureus Escherichia coli Anaerobic Culture - Final No anaerobic bacteria isolated. 08/23/18 12:45 Gram Stain - Final Bone - Other Wound Culture - Final Meth. resistant Staph. aureus Escherichia coli Anaerobic Culture - Final No anaerobic bacteria isolated. 08/24/18 13:10 Blood Culture - Preliminary Blood Culture (Wb) - Anticubital Right No growth in 48 hours. 08/21/18 22:30 Gram Stain - Final Wound - Aerobic & Anaerobic Swabs Wound Culture - Final Escherichia coli Meth. resistant Staph. aureus Anaerobic Culture - Final No anaerobic bacteria isolated. 08/21/18 18:28 Urine Culture - Final Urine, Clean Catch Culture exhibits no growth. 08/21/18 17:45 Gram Stain - Final Wound - Right Foot Wound Culture - Final Escherichia coli Acinetobacter baumannii Meth. resistant Staph. aureus 08/21/18 17:50 Blood Culture - Final Blood Culture (Wb) - Anticubital Right Staphylococcus aureus 08/21/18 17:35 Bacteria Detection (PCR) - Final Blood Culture (Wb) - Anticubital Left mecA Resistance Marker Staphylococcus aureus Blood Culture - Final Meth. resistant Staph. aureus 08/24/18 00:20 C. difficile DNA Amplification - Final Stool POC Glucose 08/26/18 08/26/18 08/25/18 10:50 03:25 22:12 POC Glucose 198 H 174 H 189 H 08/25/18 08/25/18 16:11 12:25 POC Glucose 192 H 258 H Assessment/Plan All Active Problems (Last Reviewed 08/21/18 @ 21:15 by Shaka De La Torre MD) PAD (peripheral artery disease) (Acute) Bacteremia (Acute) Cellulitis of right lower extremity (Acute) Type 2 diabetes mellitus with diabetic polyneuropathy (Acute) Malnutrition (Acute) Delayed wound healing (Acute) DM type 2, uncontrolled, with renal complications (Acute) Patient with nonhealing wound. 1. PAD. His studies appear to have normal triphasic flow with normal ABIs. Waveforms appear to be adequate throughout as well in the triphasic flow. Signals are very strong as well and has abnormal palpable popliteal pulse. We will see him back in 3 weeks with a duplex of the right leg but does not appear to have anything that needs intervene from a vascular standpoint.
--- NOTE | 2018-08-26 12:12 | PCM.PROGNOTE ---
Patient Problems: Active and Suspected Problems (Last Reviewed 08/21/18 @ 21:15 by Shaka De La Torre MD) Type 2 diabetes mellitus with diabetic polyneuropathy (Acute) Malnutrition (Acute) Delayed wound healing (Acute) Osteomyelitis (Suspected) Subjective: This 78-year-old male was seen bedside today post operative day #3 right foot revisional TMA with debridement of non viable soft tissue and bone by Dr. Contreras. He denies fever, chills, nausea, vomiting, calf pain, chest pain, shortness of breath. His pain remains well controlled at this time. Resting comfortably in bed. - Physical Exam General: Alert, Oriented x3, Cooperative Extremities: Capillary Refill Less than 3 Seconds - Dorsal plantar stump site right foot, No Calf Tenderness - Negative Ceferino and Sloan sign right, Diminished Peripheral Pulses, Edema - decreased right foot Skin: Incision - Dressing change performed just prior to me arriving this afternoon. Wound nurse states that everything looks exactly the same as yesterday. Musculoskeletal: No Tenderness to Palpation of Joints or Extremities, - - Right transmetatarsal amputation Neurological: - - Lack of normal epicritic sensation Psych/Mental Status: Normal Affect, Appropriate Vital Signs Temp Pulse Resp BP Pulse Ox 97.6 F L 60 16 123/61 H 97 08/26/18 08:55 08/26/18 08:59 08/26/18 08:55 08/26/18 08:55 08/26/18 08:55 Oxygen Flow Rate (L/min) 2 Oxygen Delivery Method Room Air Weight: 90.5 kg Body Mass Index (BMI) 28.6 Finger Stick Blood Glucose 89 Intake and Output for Last 24 Hours 08/24/18 08/25/18 08/26/18 23:59 23:59 23:59 Intake Total 1753 / 1753 2974 / 3409 1292 / 1292 Balance 1753 / 1753 2974 / 3409 1292 / 1292 Microbiology Past 72 Hours 08/23/18 12:45 Gram Stain - Final Bone - Other Wound Culture - Preliminary Meth. resistant Staph. aureus Escherichia coli Anaerobic Culture - Final No anaerobic bacteria isolated. 08/23/18 12:45 Gram Stain - Final Bone - Other Wound Culture - Final Meth. resistant Staph. aureus Escherichia coli Anaerobic Culture - Final No anaerobic bacteria isolated. 08/24/18 13:10 Blood Culture - Preliminary Blood Culture (Wb) - Anticubital Right No growth in 48 hours. 08/21/18 22:30 Gram Stain - Final Wound - Aerobic & Anaerobic Swabs Wound Culture - Final Escherichia coli Meth. resistant Staph. aureus Anaerobic Culture - Final No anaerobic bacteria isolated. 08/21/18 18:28 Urine Culture - Final Urine, Clean Catch Culture exhibits no growth. 08/21/18 17:45 Gram Stain - Final Wound - Right Foot Wound Culture - Final Escherichia coli Acinetobacter baumannii Meth. resistant Staph. aureus 08/21/18 17:50 Blood Culture - Final Blood Culture (Wb) - Anticubital Right Staphylococcus aureus 08/21/18 17:35 Bacteria Detection (PCR) - Final Blood Culture (Wb) - Anticubital Left mecA Resistance Marker Staphylococcus aureus Blood Culture - Final Meth. resistant Staph. aureus 08/24/18 00:20 C. difficile DNA Amplification - Final Stool POC Glucose 08/26/18 08/26/18 08/25/18 10:50 03:25 22:12 POC Glucose 198 H 174 H 189 H 08/25/18 08/25/18 16:11 12:25 POC Glucose 192 H 258 H Medical Necessity - Tobacco Use Smoking Status: Never smoker Tobacco Use: Non-smoker Assessment/Plan All Active Problems (Last Reviewed 08/21/18 @ 21:15 by Shaka De La Torre MD) Bacteremia (Acute) Cellulitis of right lower extremity (Acute) Type 2 diabetes mellitus with diabetic polyneuropathy (Acute) Malnutrition (Acute) Delayed wound healing (Acute) DM type 2, uncontrolled, with renal complications (Acute) Status post day #3 right revisional transmetatarsal amputation with debridement of nonviable soft tissue and bone with retention suture placement for treatment of cellulitis and osteomyelitis Bacteremia Diabetes with neuropathy Delayed healing Malnutrition Other comorbidities: CAD, history of acute kidney injury, hypertension, hyperlipidemia Patient was carefully examined and evaluated resting in bed this morning. His vitals are stable and he remains afebrile. Wound cultures from the clearance fragment from surgery yesterday was reviewed with staph and e.coli. He is on IV antibiotics currently. Infectious disease remains on consultation and appreciated. Blood cultures pending. Dressings changed with Dakin's soaked gauze wick into the surgical site again today by Milagros Barnett just prior to me arriving at hospital. He is to continue to keep clean and dry. To remain with strict nonweightbearing status to the right lower extremity. He is working with physical therapy and uses a walker. To keep his limb elevated at rest. Patient indicates that Dr. Marin saw him recently today as well. We will continue to monitor for Dr. Marin's report. His previous noninvasive vascular studies were noted with a relatively normal ankle-brachial index. Podiatry will continue to follow him close while in house. Upon discharge, patient will go to [facility]. Per Dr. Contreras, this patient is to also follow up at [facility] here in [place] with Dr. Oliver. Medical management and DVT prophylaxis per medicine team is greatly appreciated.
--- NOTE | 2018-08-26 12:22 | NURSING ---
Called lab and was notified that blood culture drawn 08/25 @1005 in negative so far. Dr. Graham states to hold PICC line at this time until resulted further.
--- NOTE | 2018-08-26 12:43 | PCM.PN.ID ---
Patient Problems: Active and Suspected Problems (Last Reviewed 08/26/18 @ 12:11 by Chris Marin MD) PAD (peripheral artery disease) (Acute) Type 2 diabetes mellitus with diabetic polyneuropathy (Acute) Malnutrition (Acute) Delayed wound healing (Acute) Osteomyelitis (Suspected) Subjective: No fever, no events overnight. - Physical Exam General: No apparent distress Lungs: Clear to auscultation, Normal air movement Cardiovascular: Regular rate, Regular Rhythm Abdomen: Soft, Non Tender, Non-Distended Skin: Ulcer/ Wound - foot wrapped reviewed photo Vital Signs Temp Pulse Resp BP Pulse Ox 97.6 F L 60 16 123/61 H 97 08/26/18 08:55 08/26/18 08:59 08/26/18 08:55 08/26/18 08:55 08/26/18 08:55 Oxygen Flow Rate (L/min) 2 Oxygen Delivery Method Room Air Weight: 90.5 kg Body Mass Index (BMI) 28.6 Finger Stick Blood Glucose 89 Intake and Output for Last 24 Hours 08/24/18 08/25/18 08/26/18 23:59 23:59 23:59 Intake Total 1753 / 1753 2974 / 3409 1292 / 1292 Balance 1753 / 1753 2974 / 3409 1292 / 1292 Microbiology Past 72 Hours 08/23/18 12:45 Gram Stain - Final Bone - Other Wound Culture - Preliminary Meth. resistant Staph. aureus Escherichia coli Anaerobic Culture - Final No anaerobic bacteria isolated. 08/23/18 12:45 Gram Stain - Final Bone - Other Wound Culture - Final Meth. resistant Staph. aureus Escherichia coli Anaerobic Culture - Final No anaerobic bacteria isolated. 08/24/18 13:10 Blood Culture - Preliminary Blood Culture (Wb) - Anticubital Right No growth in 48 hours. 08/21/18 22:30 Gram Stain - Final Wound - Aerobic & Anaerobic Swabs Wound Culture - Final Escherichia coli Meth. resistant Staph. aureus Anaerobic Culture - Final No anaerobic bacteria isolated. 08/21/18 18:28 Urine Culture - Final Urine, Clean Catch Culture exhibits no growth. 08/21/18 17:45 Gram Stain - Final Wound - Right Foot Wound Culture - Final Escherichia coli Acinetobacter baumannii Meth. resistant Staph. aureus 08/21/18 17:50 Blood Culture - Final Blood Culture (Wb) - Anticubital Right Staphylococcus aureus 08/21/18 17:35 Bacteria Detection (PCR) - Final Blood Culture (Wb) - Anticubital Left mecA Resistance Marker Staphylococcus aureus Blood Culture - Final Meth. resistant Staph. aureus 08/24/18 00:20 C. difficile DNA Amplification - Final Stool POC Glucose 08/26/18 08/26/18 08/25/18 10:50 03:25 22:12 POC Glucose 198 H 174 H 189 H 08/25/18 16:11 POC Glucose 192 H Medical Necessity - Tobacco Use Smoking Status: Never smoker Tobacco Use: Non-smoker Route of nutrition/ use of supplements: [] Nutritional Intake: [] IV Site: [] Garvey Catheter: [] - Assessment/Plan Antibiotics: [] Assessment/Plan: [] Active and Suspected Problems (Last Reviewed 08/21/18 @ 21:15 by Shaka De La Torre MD) Bacteremia (Acute) Type 2 diabetes mellitus with diabetic polyneuropathy (Acute) Malnutrition (Acute) Delayed wound healing (Acute) Osteomyelitis (Suspected) MRSA bacteremia due to R foot osteo and infected TMA site - wound cx with MRSA, ESBL ecoli, and AcB. Cont vanc/meropenem. I&D by Dr. Oliver done 08/23. Repeat bcx neg at 48 hours. TTE neg for veg. Plan will be for picc line and 6 weeks of iv vanc and ravi. Stop date 10/04/18. Weekly bmp, cbc, LFT, and esr. ID followup in 4 weeks at wound care center Will follow, d/w behavioral health case manager.
--- NOTE | 2018-08-26 13:35 | CASEMGMT ---
Social Work Note Physician is discharging pt tomorrow. JAZMÍN received IV antibiotics scripts and faxed scripts to [facility]. Pt will need PICC Line placed. JAZMÍN placed a call to Rina at [facility] updated her on IV scripts, that PICC line will be placed, and pt is discharging tomorrow. Rina confirms she is able to accept pt. JAZMÍN placed a call to pt's Kassandra and updated her that pt has been accepted to [facility] and pt should be discharged tomorrow. Kassandra states understanding. Plan: [facility] tomorrow Marianne Paez [employer], PERSONNEL COUNSELOR
[2018-08-26] MEDS: Metoprolol(XL)Succ 25 MG Tablet PO (13:51)
[2018-08-26] MEDS: 0.9% NaCl Peripheral Flush Adult/Peds IV (13:51)
[2018-08-26 16:16] LABS: Bedside Glucose 192 mg/dL (70-110)
[2018-08-26] MEDS: 0.9% NaCl IVPB Med Flush (250 mL) 15 ML IV (18:29)
[2018-08-26 21:45] LABS: Bedside Glucose 151 mg/dL (70-110)
[2018-08-26] MEDS: Doxazosin 4 MG Tablet 2 MG PO (21:47)
[2018-08-26 22:20] LABS: Bedside Glucose 228 mg/dL (70-110)
[2018-08-27] MEDS: Insulin Lispro 100 UNIT/ML INSULN.PEN SC ×4 (03:01→17:05)
[2018-08-27 03:03] VITALS: BP 114/55; PULSE 58; RESP 18; TEMP 36.6; O2SAT 97
[2018-08-27 03:08] VITALS: PULSE 58
[2018-08-27 03:11] LABS: Bedside Glucose 160 mg/dL (70-110)
[2018-08-27] MEDS: Vancomycin IV 1,000 MG/200 ML BAG 200 MG IV (06:34)
[2018-08-27 06:50] LABS: Bedside Glucose 154 mg/dL (70-110)
[2018-08-27 06:50] LABS: Absolute Lymphocyte Count 2.76 X10^3/ul (0.83-4.51); Absolute Neutrophil Count 3.6 X10^3/uL (2.0-7.7); Basophil% 1.4 % (0-1); Eosinophil# 0.29 X10^3/uL; Eosinophils% 3.9 % (0-5); Hematocrit 26.4 % (40-54); Hemoglobin 8.6 g/dl (13.0-16.5); Lymphocyte # 2.76 X10^3/ul (4.0); Lymphocyte % 37.4 % (19-41); Mean Corp Hgb Conc 32.6 g/gl (32-36); Mean Corpuscular Hgb 27.4 pg (27.0-32.0); Mean Corpuscular Volume 84.1 fL (80-94); Mean Platelet Vol. 8.6 fl (6.2-12.0); Monocyte# 0.58 X10^3/uL; Monocyte% 7.9 % (0-10); Neutrophil # 3.63 X10^3/uL (2.7-7.7); Neutrophil % 49.3 % (47-70); Platelet Count 322 K/mm3 (150-450); RBC Distribution Width CV 14.5 % (11.6-14.6); Red Blood Count 3.14 M/mm3 (4.6-6.2); White Blood Count 7.4 K/mm3 (4.4-11.0)
[2018-08-27 06:51] LABS: POSITIVE COUNT NO; POSITIVE DIFFERENTIAL NO; POSITIVE MORPHOLOGY NO
[2018-08-27 07:08] LABS: Anion Gap 2 (5-15); BUN 19 mg/dL (7-18); BUN/Creat Ratio 18.1 RATIO (10-20); Calcium,Total 8.5 mg/dL (8.5-10.1); Chloride 110 mmol/L (98-107); Creatinine, Serum 1.05 mg/dL (0.70-1.30); EST Glomerular Filtration Rate 73 mL/min (>60); Est Glom Filt Rate - Afr Amer 88 mL/min (>60); Estimated Creatinine Clearance 59.87 ml/min; Glucose 153 mg/dL (74-106); Potassium 4.2 mmol/L (3.5-5.1); Sodium Level 140 mmol/L (136-145)
[2018-08-27 07:21] LABS: Vancomycin, Trough Level 24.5 ug/mL (5.0-15.0)
--- NOTE | 2018-08-27 07:52 | PCM.RX.CS ---
Consult Pharmacy has been consulted to manage selected antiobiotic: Vancomycin Type of Consult: Follow-up Suspected Infection: Skin/Soft tissue, Osteomyelitis Prior Doses of Antibiotics Received/Current Regimen: VANCOMYCIN 1000MG IV Q12HR: 08/26 @1830, 08/27 @0634 Labs: Sodium 140 mmol/L (136-145) 08/27/18 06:35 Potassium 4.2 mmol/L (3.5-5.1) 08/27/18 06:35 Chloride 110 mmol/L (98-107) H 08/27/18 06:35 Carbon Dioxide 28.0 mmol/L (21.0-32.0) 08/27/18 06:35 2 (5-15) L 08/27/18 06:35 BUN 19 mg/dL (7-18) H 08/27/18 06:35 1.05 mg/dL (0.70-1.30) 08/27/18 06:35 Est GFR (MDRD) Af Amer 88 mL/min (>60) 08/27/18 06:35 Est GFR (MDRD) Non-Af 73 mL/min (>60) 08/27/18 06:35 18.1 RATIO (10-20) 08/27/18 06:35 Glucose 153 mg/dL (74-106) H 08/27/18 06:35 Vancomycin Trough 24.5 ug/mL (5.0-15.0) H 08/27/18 06:35 Microbiology: Microbiology 08/23/18 12:45 Bone - Other Gram Stain - Final 08/23/18 12:45 Bone - Other Wound Culture - Preliminary Meth. resistant Staph. aureus Escherichia coli 08/23/18 12:45 Bone - Other Anaerobic Culture - Final No anaerobic bacteria isolated. 08/23/18 12:45 Bone - Other Gram Stain - Final 08/23/18 12:45 Bone - Other Wound Culture - Final Meth. resistant Staph. aureus Escherichia coli 08/23/18 12:45 Bone - Other Anaerobic Culture - Final No anaerobic bacteria isolated. 08/24/18 13:10 Blood Culture (Wb) - Anticubital Right Blood Culture - Preliminary No growth in 48 hours. 08/21/18 22:30 Wound - Aerobic & Anaerobic Swabs Gram Stain - Final 08/21/18 22:30 Wound - Aerobic & Anaerobic Swabs Wound Culture - Final Escherichia coli Meth. resistant Staph. aureus 08/21/18 22:30 Wound - Aerobic & Anaerobic Swabs Anaerobic Culture - Final No anaerobic bacteria isolated. 08/21/18 18:28 Urine, Clean Catch Urine Culture - Final Culture exhibits no growth. 08/21/18 17:45 Wound - Right Foot Gram Stain - Final 08/21/18 17:45 Wound - Right Foot Wound Culture - Final Escherichia coli Acinetobacter baumannii Meth. resistant Staph. aureus 08/21/18 17:50 Blood Culture (Wb) - Anticubital Right Blood Culture - Final Staphylococcus aureus 08/21/18 17:35 Blood Culture (Wb) - Anticubital Left Bacteria Detection (PCR) - Final mecA Resistance Marker Staphylococcus aureus 08/21/18 17:35 Blood Culture (Wb) - Anticubital Left Blood Culture - Final Meth. resistant Staph. aureus 08/24/18 00:20 Stool C. difficile DNA Amplification - Final Goal Trough: 15-20 mcg/mL Pharmacy Plan for Drug Dosing: The patient had a trough drawn which resulted in a value of 24.5 (drawn ~12hrs from last administered dose). Since the patient's goal is 15-20, will hold the dose for 24hrs and draw a random trough to assess dosing at that time. Of note; the patient did get the dose this morning while the level was pending, so waiting to recheck 24hrs from last administered dose. PLAN/RECOMMENDATIONS 1. HOLD vancomycin for 24hrs 2. Random trough 08/28/18 @0630 to assess dosing 3. Pharmacy Service will continue to monitor and adjust dosing as required.
[2018-08-27 08:23] VITALS: BP 113/62; PULSE 83; RESP 18; TEMP 36.7; O2SAT 97
[2018-08-27 08:24] VITALS: PULSE 83
[2018-08-27] MEDS: Metoprolol(XL)Succ 25 MG Tablet PO (08:24)
[2018-08-27] MEDS: Enoxaparin 40 MG/0.4 ML Syringe SC (08:24)
[2018-08-27] MEDS: Clopidogrel Bisulfate 75 MG Tablet 37.5 MG PO (08:24)
[2018-08-27] MEDS: Aspirin E.C. 81 MG Tablet PO (08:25)
[2018-08-27] MEDS: AMILORIDE HCL 5 MG TABLET PO ×2 (08:26→17:09)
[2018-08-27] MEDS: Losartan Potassium 50 MG Tablet PO (08:26)
--- NOTE | 2018-08-27 10:24 | PCM.TXEXTCAR ---
- Diet 08/23/18 13:19 Diet: Carbohydrate Controlled Is pt able to select menu?: Yes Diet Comments: no concentrated sweets - Routine Orders/Code Status Routine Lab Work: CBC - within 1 week, BMP - within 1 week Code Status: Full Code - Wound(s) right foot Wound Type: Surgical Incision Dressing Change: Dakins moistened gauze knees Wound Type: Abrasion left moses Wound Type: scattered scabs - Therapies Weight Bearing: Non weight bearing Extremity Affected:: Right Lower Physical Therapy: Eval and Treat Occupational Therapy: Eval and Treat - Allergies/Procedures Done in Hospital Allergies/Adverse Reactions: Allergies Iodinated Contrast- Oral and IV Dye [CONTRASTS] Allergy (Verified 08/21/18 16:53) Rash amlodipine [From Norvasc] Adverse Reaction (Unknown, Verified 08/21/18 16:53) Unknown atorvastatin [From Lipitor] Adverse Reaction (Unknown, Verified 08/21/18 16:53) Unknown cerivastatin [From Baycol] Adverse Reaction (Unknown, Verified 08/21/18 16:53) Unknown enalapril Adverse Reaction (Unknown, Verified 08/21/18 16:53) Unknown exenatide [From Byetta] Adverse Reaction (Unknown, Verified 08/21/18 16:53) Unknown ezetimibe [From Zetia] Adverse Reaction (Unknown, Verified 08/21/18 16:53) Unknown fenofibrate [From Tricor] Adverse Reaction (Unknown, Verified 08/21/18 16:53) Unknown gemfibrozil Adverse Reaction (Unknown, Verified 08/21/18 16:53) Unknown glipizide [From Glucotrol] Adverse Reaction (Unknown, Verified 08/21/18 16:53) Unknown labetalol Adverse Reaction (Unknown, Verified 08/21/18 16:53) Unknown lovastatin [From Mevacor] Adverse Reaction (Unknown, Verified 08/21/18 16:53) Unknown metformin [From Glucophage] Adverse Reaction (Unknown, Verified 08/21/18 16:53) Unknown niacin [From Niaspan Extended-Release] Adverse Reaction (Unknown, Verified 08/21/18 16:53) Unknown nifedipine [From Adalat] Adverse Reaction (Unknown, Verified 08/21/18 16:53) Unknown quinapril [From Accupril] Adverse Reaction (Unknown, Verified 08/21/18 16:53) Unknown repaglinide [From Prandin] Adverse Reaction (Unknown, Verified 08/21/18 16:53) Unknown rosuvastatin [From Crestor] Adverse Reaction (Unknown, Verified 08/21/18 16:53) Unknown simvastatin [From Zocor] Adverse Reaction (Unknown, Verified 08/21/18 16:53) Unknown glyburide Adverse Reaction (Unknown, Uncoded 08/21/18 16:53) Unknown nifedipine Adverse Reaction (Unknown, Uncoded 08/21/18 16:53) Unknown Procedures: - - s/p right revisional transmetatarsal amputation with debridement of nonviable soft tissue and bone with retention suture placement - Type of Care/Length of Stay Estimated LOS: Convalescent Care Less Than 30 days Type of Care Needed: Skilled Rehab Potential: Good Prognosis: Good - Additional Orders/Day of Discharge Day of Discharge: 08/27/18 - Dietary and Speech Recommendations Dietitian Recommendations/Changes: Suggest liberalize diet to no conc sweets to help optimize PO at meals. Will d/c glucerna shake on medpass as pt is refusing. Continue Silviano 1 packet BID for wound healing. - Follow Up Care Primary Care Physician: Nawaf Villaseñor MD [Primary Care Provider] - Please follow up with your Primary Care Physician in: within 1-2 weeks Please Follow Up With: Harman Mauricio MD When: in 4 weeks in the office
--- NOTE | 2018-08-27 10:25 | PCM.PN.ID ---
Patient Problems: Active and Suspected Problems (Last Reviewed 08/26/18 @ 12:11 by Chris Marin MD) PAD (peripheral artery disease) (Acute) Type 2 diabetes mellitus with diabetic polyneuropathy (Acute) Malnutrition (Acute) Delayed wound healing (Acute) Osteomyelitis (Suspected) Subjective: Feeling ok, no fever, picc today. - Physical Exam General: Alert, Cooperative, No apparent distress Lungs: Clear to auscultation, Normal air movement Cardiovascular: Regular rate, Regular Rhythm Abdomen: Soft, Non Tender, Non-Distended Skin: Ulcer/ Wound - wrapped Vital Signs Temp Pulse Resp BP Pulse Ox 98.1 F 83 18 113/62 97 08/27/18 08:23 08/27/18 08:24 08/27/18 08:23 08/27/18 08:23 08/27/18 08:23 Oxygen Flow Rate (L/min) 2 Oxygen Delivery Method Room Air Weight: 90.5 kg Body Mass Index (BMI) 28.6 Finger Stick Blood Glucose 89 Intake and Output for Last 24 Hours 08/25/18 08/26/18 08/27/18 23:59 23:59 23:59 Intake Total 2974 / 3409 129 / 1993 1108 / 1108 Balance 2974 / 3409 129 / 1993 1108 / 1108 Microbiology Past 72 Hours 08/25/18 10:05 Blood Culture - Preliminary Blood Culture (Wb) - Anticubital Right No growth in 48 hours. 08/23/18 12:45 Gram Stain - Final Bone - Other Wound Culture - Preliminary Meth. resistant Staph. aureus Escherichia coli Anaerobic Culture - Final No anaerobic bacteria isolated. 08/23/18 12:45 Gram Stain - Final Bone - Other Wound Culture - Final Meth. resistant Staph. aureus Escherichia coli Anaerobic Culture - Final No anaerobic bacteria isolated. 08/24/18 13:10 Blood Culture - Preliminary Blood Culture (Wb) - Anticubital Right No growth in 48 hours. 08/21/18 22:30 Gram Stain - Final Wound - Aerobic & Anaerobic Swabs Wound Culture - Final Escherichia coli Meth. resistant Staph. aureus Anaerobic Culture - Final No anaerobic bacteria isolated. 08/21/18 18:28 Urine Culture - Final Urine, Clean Catch Culture exhibits no growth. 08/21/18 17:45 Gram Stain - Final Wound - Right Foot Wound Culture - Final Escherichia coli Acinetobacter baumannii Meth. resistant Staph. aureus 08/21/18 17:50 Blood Culture - Final Blood Culture (Wb) - Anticubital Right Staphylococcus aureus 08/21/18 17:35 Bacteria Detection (PCR) - Final Blood Culture (Wb) - Anticubital Left mecA Resistance Marker Staphylococcus aureus Blood Culture - Final Meth. resistant Staph. aureus Laboratory Tests Past 24 Hrs 08/27/18 08/27/18 08/27/18 06:35 06:35 06:35 WBC 7.4 RBC 3.14 L Hgb 8.6 L Hct 26.4 L MCV 84.1 MCH 27.4 MCHC 32.6 RDW 14.5 RDW Differential 43.0 Plt Count 322 MPV 8.6 Immature Gran % (Auto) 0.100 Neut % (Auto) 49.3 Lymph % (Auto) 37.4 Will % (Auto) 7.9 Eos % (Auto) 3.9 Baso % (Auto) 1.4 H Absolute Neuts (auto) 3.6 Absolute Lymphs (auto) 2.76 Total Counted Not Reportable Sodium 140 Potassium 4.2 Chloride 110 H Carbon Dioxide 28.0 Anion Gap 2 L BUN 19 H Creatinine 1.05 Estim Creat Clear Calc 59.87 Est GFR (MDRD) Af Amer 88 Est GFR (MDRD) Non-Af 73 BUN/Creatinine Ratio 18.1 Glucose 153 H Calcium 8.5 Vancomycin Trough 24.5 H POC Glucose 08/27/18 08/27/18 08/26/18 06:33 03:00 21:51 POC Glucose 154 H 160 H 228 H 08/26/18 08/26/18 08/26/18 16:03 10:50 06:26 POC Glucose 192 H 198 H 151 H Medical Necessity - Tobacco Use Smoking Status: Never smoker Tobacco Use: Non-smoker Route of nutrition/ use of supplements: [] Nutritional Intake: [] IV Site: [] Garvey Catheter: [] - Assessment/Plan Antibiotics: [] Assessment/Plan: [] Active and Suspected Problems (Last Reviewed 08/21/18 @ 21:15 by Shaka De La Torre MD) Bacteremia (Acute) Type 2 diabetes mellitus with diabetic polyneuropathy (Acute) Malnutrition (Acute) Delayed wound healing (Acute) Osteomyelitis (Suspected) MRSA bacteremia due to R foot osteo and infected TMA site - wound cx with MRSA, ESBL ecoli, and AcB. Cont vanc/meropenem. I&D by Dr. Oliver done 08/23. Repeat bcx neg at 72 hours. TTE neg for veg. Plan will be for picc line and 6 weeks of iv vanc and ravi. Stop date 10/04/18. Weekly bmp, cbc, LFT, and esr. ID followup in 4 weeks at wound care center Will follow, d/w top case assembler and Dr. Graham.
--- NOTE | 2018-08-27 10:30 | PCM.DC.SUM ---
Discharge Date and Diagnosis Date of Admission: 08/21/18 Date of Discharge: 08/28/18 - Primary Discharge Diagnosis Active and Suspected Problems (Last Reviewed 08/26/18 @ 12:11 by Chris Marin MD) Acute MRSA/E. Coli right foot stump osteomyelitis/cellulitis, status post wound debridement. 2. MRSA bacteremia - Secondary Discharge Diagnosis Chronic Problems (Last Reviewed 08/26/18 @ 12:11 by Chris Marin MD) Ulcer with necrosis of bone (Chronic) Hyperlipidemia associated with type 2 diabetes mellitus (Chronic) Managed by Dr. King. New chol agent being used. Chol now 164, LDL 75. Taking monthly injection. Essential hypertension with goal blood pressure less than 130/80 (Chronic) Hx of elevated BG in medical office. Monitors at home daily with findings of normal BP. No change in regimen. Uncontrolled type 2 diabetes mellitus, with long-term current use of insulin (Chronic) He agrees to take insulin as directed. A1c now 8.6 Hospital Course and Treatment Imaging Results: Clinical Impression(s) from Imaging Studies Chest X-Ray 08/21/18 18:14 IMPRESSION: No acute thoracic pathology. Electronically Signed: Sanya Callahan, at 18:51 EDT Tel , Service support , Foot X-Ray 08/21/18 18:18 IMPRESSION: Stable postsurgical changes. New erosions in the proximal fifth metatarsal which are suspicious for osteomyelitis. No fracture or dislocation. Electronically Signed: Sanya Callahan, at 18:40 EDT Tel , Service support , Foot X-Ray 08/23/18 12:16 IMPRESSION: Amputation of the forefoot at the level of the mid metatarsals with a soft tissue flap is elevated now as mentioned. Electronically Signed: Gene Finch, at 14:00 EDT Tel , Service support , Consultations 08/21/18 21:55 Consult: Onc/Wound/petroleum engineering professor Routine Comment: Reason for Consult:: patient with wound vac. 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 He is status post debridement of nonviable soft tissue and bone in the right foot. His management was as follows: 1. Acute MRSA/E. Coli right foot stump osteomyelitis/cellulitis, status post wound debridement, wound cultures grew E. coli and MRSA. Blood cultures also positive for MRSA. Managed on IV vancomycin and meropenem. Podiatry and ID followed us in the hospital. 2. MRSA bacteremia, 2d-echo is unremarkable, Repeat blood cultures were negative x 48 hours. Managed on IV vancomycin and meropenem. 3. Type II DM complicated with diabetic polyneuropathy, sugars are controlled, continue on Lantus and insulin sliding scale 4. Hypertension, controlled, on losartan, metoprolol and doxazosin 5. Malnutrition, severe secondary to suboptimal energy intake, molder fitting consulted in this admission. Subjective: On the day of discharge, patient denied any complains. - Physical Exam Vital Signs Temp Pulse Resp BP Pulse Ox 98.1 F 83 18 113/62 97 08/27/18 08:23 08/27/18 08:24 08/27/18 08:23 08/27/18 08:23 08/27/18 08:23 Oxygen Flow Rate (L/min) 2 Oxygen Delivery Method Room Air Weight: 90.5 kg Body Mass Index (BMI) 28.6 Finger Stick Blood Glucose 89 Intake and Output for Last 24 Hours 08/25/18 08/26/18 08/27/18 23:59 23:59 23:59 Intake Total 2974 / 3409 1292 / 1993 1108 / 1108 Balance 2974 / 3409 1292 / 1993 1108 / 1108 Microbiology Past 72 Hours 08/25/18 10:05 Blood Culture - Preliminary Blood Culture (Wb) - Anticubital Right No growth in 48 hours. 08/23/18 12:45 Gram Stain - Final Bone - Other Wound Culture - Preliminary Meth. resistant Staph. aureus Escherichia coli Anaerobic Culture - Final No anaerobic bacteria isolated. 08/23/18 12:45 Gram Stain - Final Bone - Other Wound Culture - Final Meth. resistant Staph. aureus Escherichia coli Anaerobic Culture - Final No anaerobic bacteria isolated. 08/24/18 13:10 Blood Culture - Preliminary Blood Culture (Wb) - Anticubital Right No growth in 48 hours. 08/21/18 22:30 Gram Stain - Final Wound - Aerobic & Anaerobic Swabs Wound Culture - Final Escherichia coli Meth. resistant Staph. aureus Anaerobic Culture - Final No anaerobic bacteria isolated. 08/21/18 18:28 Urine Culture - Final Urine, Clean Catch Culture exhibits no growth. 08/21/18 17:45 Gram Stain - Final Wound - Right Foot Wound Culture - Final Escherichia coli Acinetobacter baumannii Meth. resistant Staph. aureus 08/21/18 17:50 Blood Culture - Final Blood Culture (Wb) - Anticubital Right Staphylococcus aureus 08/21/18 17:35 Bacteria Detection (PCR) - Final Blood Culture (Wb) - Anticubital Left mecA Resistance Marker Staphylococcus aureus Blood Culture - Final Meth. resistant Staph. aureus Laboratory Tests Past 24 Hrs 08/27/18 08/27/18 08/27/18 06:35 06:35 06:35 WBC 7.4 RBC 3.14 L Hgb 8.6 L Hct 26.4 L MCV 84.1 MCH 27.4 MCHC 32.6 RDW 14.5 RDW Differential 43.0 Plt Count 322 MPV 8.6 Immature Gran % (Auto) 0.100 Neut % (Auto) 49.3 Lymph % (Auto) 37.4 Burt % (Auto) 7.9 Eos % (Auto) 3.9 Baso % (Auto) 1.4 H Absolute Neuts (auto) 3.6 Absolute Lymphs (auto) 2.76 Total Counted Not Reportable Sodium 140 Potassium 4.2 Chloride 110 H Carbon Dioxide 28.0 Anion Gap 2 L BUN 19 H Creatinine 1.05 Estim Creat Clear Calc 59.87 Est GFR (MDRD) Af Amer 88 Est GFR (MDRD) Non-Af 73 BUN/Creatinine Ratio 18.1 Glucose 153 H Calcium 8.5 Vancomycin Trough 24.5 H POC Glucose 08/27/18 08/27/18 08/26/18 06:33 03:00 21:51 POC Glucose 154 H 160 H 228 H 08/26/18 08/26/18 08/26/18 16:03 10:50 06:26 POC Glucose 192 H 198 H 151 H Discharge Diet: Low fat/ Low Cholesterol, 2000 mg Sodium Diet Discharge Activity: Return to Normal Activity Home Medications: Medications to take at Discharge amiloride 5 mg tablet 5 mg PO BID tab 05/29/17 aspirin 81 mg tablet,delayed release 81 mg PO DAILY 05/29/17 losartan 50 mg tablet 50 mg PO DAILY 05/29/17 coenzyme Q10 100 mg capsule 100 mg PO DAILY 06/04/17 magnesium oxide 500 mg capsule 500 mg PO BID cap 06/04/17 doxazosin 4 mg tablet 2 mg PO QHS tab 09/16/17 metoprolol succinate ER 50 mg tablet,extended release 24 hr 25 mg PO DAILY tab 09/16/17 Alirocumab [Praluent Pen] 75 mg [id number] 06/29/18 Clopidogrel Bisulfate [Clopidogrel] 37.5 mg PO DAILY 08/21/18 Krill/Om-3/Dha/Epa/Phospho/Ast [Krill Oil 1,000 mg Softgel] 1 cap PO DAILY 08/21/18 Multivit-Min/FA/Lycopen/Lutein [Centrum Silver Tablet] 1 tab PO DAILY 08/21/18 Meropenem [Merrem] 1 gm IV Q8 40 Days #40 vial 08/26/18 Acetaminophen [Tylenol Tablet] 650 mg PO Q6H PRN PRN tab 08/27/18 Enoxaparin [Lovenox] 40 mg SUBCUT DAILY@1000 syringe 08/27/18 Insulin Glargine [Lantus SoloStar Pen] 10 units SUBCUT DINNER pen 08/27/18 Insulin Lispro [Humalog KwikPen] See Protocol SUBCUT ACHS & 3AM insuln.pen 08/27/18 Lactobacillus Acidophilus [Acidophilus] 1 tab PO BID tab 08/27/18 Melatonin 3 mg PO QHS PRN PRN tab 08/27/18 Nutritional Supplement [Silviano - ORANGE FLAVOR] 1 packet PO BIDCM packet 08/27/18 Oxycodone [Oxyir] 5 mg PO Q4H PRN PRN 5 Days #20 tab 08/27/18 Sodium Hypochlorite [Dakins Solution 0.25% (1/2 Strength)] 1 applic TOPICAL BID bottle 08/27/18 Vancomycin IV Pharmacy to Dose 750 ea IV Q12.TCU 40 Days #80 ea 08/27/18 Following Prescrptions Were Given to Patient: Meropenem [Merrem] 1 gm IV Q8 40 Days #40 vial Prescription Printed Oxycodone [Oxyir] 5 mg PO Q4H PRN PRN 5 Days #20 tab PRN Reason: Moderate Pain (4-6/10) Prescription Printed Vancomycin IV Pharmacy to Dose 750 ea IV Q12.TCU 40 Days #80 ea Primary Care Physician: Nawaf Villaseñor MD [Primary Care Provider] - Please follow up with your Primary Care Physician in: within 1-2 weeks Please Follow Up With: Harman Mauricio MD When: in 4 weeks in the office Medical Necessity - Tobacco Use Smoking Status: Never smoker Tobacco Use: Non-smoker Meaningful Use Info Meaningful Use Diagnoses (Choose all that apply): None applicable Code Visit Inpatient E&M: 86302 Disch Hosp
--- NOTE | 2018-08-27 11:30 | CASEMGMT ---
Social Work Note SW spoke with RN, pt will get PICC line placed between 3:00 - 5:00pm. SW asked RN to update this worker when PICC line gets placed so transportation can be arranged. SW updated pt that PICC Line will be placed later this afternoon and once PICC is placed, transportation can be arranged. Pt states understanding. Plan: Discharge to [facility] once PICC Line is placed. Marianne Paez PIPE SMOKER MACHINE OPERATOR, INDUSTRIAL REHABILITATION CONSULTANT
--- NOTE | 2018-08-27 12:07 | NURSING ---
wound photo: right foot
[2018-08-27 12:45] LABS: Bedside Glucose 172 mg/dL (70-110)
[2018-08-27 14:17] VITALS: BP 134/57; PULSE 61; RESP 16; TEMP 37.1; O2SAT 97
--- NOTE | 2018-08-27 15:19 | CASEMGMT ---
Social Work Note SW is leaving for the day, PICC line still isn't placed for pt. JAZMÍN faxed discharge paperwork to Rina at [facility] including transfer to extended care, signed medication list, and any scripts. Original in SNF folder and copy on pt's chart. JAZMÍN completed convalescent [facility] in [facility], original in SNF folder and copy on pt's chart. JAZMÍN placed green sheet on chart and wrote on green sheet for staff to call pt's when pt is discharged. JAZMÍN updated hospital secretary Estela that transportation will need to be arranged once PICC Line is placed. Estela states understanding. Transportation form completed and placed on SNF folder. Plan: Discharge to [facility] today. Transportation will need to be arranged once PICC Line is placed. Marianne Paez RETARDER OPERATOR, 3D ANIMATOR
[2018-08-27 17:11] VITALS: BP 127/65; PULSE 58; RESP 16; TEMP 36.6; O2SAT 97
[2018-08-27 17:35] LABS: Bedside Glucose 253 mg/dL (70-110)
--- NOTE | 2018-08-27 18:07 | NURSING ---
1700-PT UPSET THAT [facility] HAD A DELAY AND ARE NOW TRYING TO GET HERE BETWEEN [phone]. PT ALSO INSISTS THAT HIS WILL BE DRIVING HIM [facility] [place]. I TOLD HIM WE WERE PLANNING ON MAKING ARRANGEMENTS FOR HIS RIDE SHOWS WHAT YOU KNOW, NOBODY KNOWS WHAT ANYONE IS DOING AROUND HERE. MY IS DRIVING ME
--- NOTE | 2018-08-27 18:40 | NURSING ---
[facility] W/IV ACCESS IS IN W/PT. PT STILL SAYS THAT HIS IS TRANSPORTING HIM TO [facility]. A MATTER OF FACT, HIS JUST SENT A VOLUNTEER UP TO THE UNIT WITH A WC TO BRING THE PT DOWN. ONLY # THIS NURSE HAS AVAILABLE SAYS IT IS A HOME # BUT WILL TRY TO CALL IT AND CONTACT .
--- NOTE | 2018-08-27 18:51 | NURSING ---
REPORT CALLED TO [facility]
== END 2018-08-27 19:23 | disposition skilled nursing facility (03) | DRG 503 ==
LOC: ED 17:18 → MS3 20:20
PROVIDERS: Internal Medicine; Podiatrist; Admitting Provider Hospitalist; Emergency Provider Emergency Medicine; Family Provider Family Medicine; PCP Family Medicine; Referring Provider Hospitalist; Visit Provider Internal Medicine
PROC: 0QBN0ZZ Excision of Right Metatarsal, Open Approach (ICD-10-PCS; principal; 2018-08-23 10:00)
DX: T87.43 Infection of amputation stump, right lower extremity (principal); E43 Unspecified severe protein-calorie malnutrition; R78.81 Bacteremia; M86.171 Other acute osteomyelitis, right ankle and foot; L03.115 Cellulitis of right lower limb; E11.29 Type 2 diabetes mellitus with other diabetic kidney complication; I25.10 Atherosclerotic heart disease of native coronary artery without angina pectoris; I10 Essential (primary) hypertension; E11.42 Type 2 diabetes mellitus with diabetic polyneuropathy; B95.62 Methicillin resistant Staphylococcus aureus infection as the cause of diseases classified elsewhere; B96.20 Unspecified Escherichia coli [E. coli] as the cause of diseases classified elsewhere; E78.5 Hyperlipidemia, unspecified; E11.69 Type 2 diabetes mellitus with other specified complication; Z95.1 Presence of aortocoronary bypass graft; Z79.4 Long term (current) use of insulin; Z68.28 Body mass index [BMI] 28.0-28.9, adult; Z89.431 Acquired absence of right foot; I73.9 Peripheral vascular disease, unspecified
CPT/HCPCS: 36415; 36569; 71045; 73630; 76000; 80048; 80053; 80202; 81001; 82962; 83036; 83605; 85014; 85018; 85025; 85610; 85652; 85730; 86140; 86850; 86900; 87015; 87040; 87070; 87075; 87077; 87086; 87102; 87106; 87116; 87149; 87186; 87205; 87206; 87493; 87640; 88304; 88311; 93005; 93306; 97162; 97165; 97802; 99283; J2185; J7030; J7040; J7050; A4216

== ENCOUNTER 2018-09-02 20:27 | Emergency (ER) | payer MEDICARE, OTHER, SELFPAY ==
[2018-08-23 08:02] VITALS: BMI 28.6
[2018-09-02 20:29] VITALS: BP 137/91; PULSE 84; RESP 16; TEMP 36.9; O2SAT 98; BMI 29.5
--- NOTE | 2018-09-02 21:04 | CT_ITS ---
STUDY: CT ABDOMEN AND PELVIS WITHOUT CONTRAST REASON FOR EXAM: Male, 78 years old. Abdominal wall mass RADIATION DOSAGE (If Supplied By Facility): DLP = ( 648.23 ) mGycm TECHNIQUE: Transaxial images were obtained from the dome of the diaphragm to the symphysis pubis without oral contrast, and without intravenous contrast. Sagittal and coronal images were reconstructed. Individualized dose optimization techniques were used for this CT. COMPARISON: None. FINDINGS: Evaluation of the abdominal viscera is limited in the absence of intravenous contrast. Bibasilar calcified pleural plaques are present. Coronary artery calcifications are present. The gallbladder contains gallstones. The liver demonstrates an unremarkable unenhanced appearance. The spleen is normal in size. The pancreas demonstrates an unremarkable unenhanced appearance. The adrenal glands are within normal limits. There are no obstructing renal stones. There is a left renal mid pole 4 mm calcification, likely vascular. There is no hydronephrosis. There is a left renal lower pole 2 cm cyst. Normal visualized stomach. There is no bowel obstruction or inflammation. The aorta is normal in caliber. There is no abdominal or pelvic free air, free fluid, fluid collection or lymphadenopathy. There are no destructive osseous lesions._ There is a right anterior abdominal subcutaneous 5.1 x 3.3 x 5.2 cm density with surrounding edema. There are several gas bubbles along the medial and lateral aspect. CT/Abdomen/Pelvis without Cont IMPRESSION: Right anterior abdominal wall subcutaneous density as described above, consistent appearance with hematoma or abscess. Bibasilar calcified pleural plaques. Coronary artery calcifications. Cholelithiasis. Electronically Signed: Keenan Ko, at 21:57 EDT Tel , Service support ,
[2018-09-02 21:29] LABS: Absolute Neutrophil Count 3.2 X10^3/uL (2.0-7.7); Basophil# 0.06 X10^3/uL; Basophil% 0.9 % (0-1); Eosinophil# 0.24 X10^3/uL; Eosinophils% 3.7 % (0-5); Hematocrit 26.2 % (40-54); Hemoglobin 8.5 g/dl (13.0-16.5); Lymphocyte % 38.3 % (19-41); Mean Corp Hgb Conc 32.4 g/gl (32-36); Mean Corpuscular Volume 86.2 fL (80-94); Mean Platelet Vol. 8.5 fl (6.2-12.0); Monocyte# 0.51 X10^3/uL; Monocyte% 7.8 % (0-10); Neutrophil # 3.21 X10^3/uL (2.7-7.7); Neutrophil % 49.1 % (47-70); Platelet Count 257 K/mm3 (150-450); RBC Distribution Width CV 16.4 % (11.6-14.6); RBC Distribution Width SD 51.9 fl (35.1-43.9); Red Blood Count 3.04 M/mm3 (4.6-6.2); White Blood Count 6.5 K/mm3 (4.4-11.0)
[2018-09-02] MEDS: 0.9% Normal Saline 1,000 ML 125 ML IV (21:33)
[2018-09-02 21:45] LABS: Anion Gap 4 (5-15); BUN 21 mg/dL (7-18); BUN/Creat Ratio 18.8 RATIO (10-20); Calcium,Total 8.6 mg/dL (8.5-10.1); Chloride 106 mmol/L (98-107); Creatinine, Serum 1.12 mg/dL (0.70-1.30); EST Glomerular Filtration Rate 67 mL/min (>60); Est Glom Filt Rate - Afr Amer 82 mL/min (>60); Estimated Creatinine Clearance 56.13 ml/min; Glucose 191 mg/dL (74-106); Potassium 4.6 mmol/L (3.5-5.1); Sodium Level 138 mmol/L (136-145)
[2018-09-02 21:53] LABS: POSITIVE COUNT NO; POSITIVE DIFFERENTIAL NO; POSITIVE MORPHOLOGY NO
--- NOTE | 2018-09-02 22:28 | ED.DCSUM_ITS ---
- ER Visit Summary Date of Service: 09/02/18 Chief Complaint: [Right-sided abdominal wall swelling] History of Present Illness: The patient is a 78 M [presents the emergency department with a swelling to the right side of the abdomen that started initially 2 months ago as a small area. This evening the area became significantly larger and more painful and presents for evaluation. Patient currently in a [facility] recovering from partial resection of his right foot related to a diabetic wound. Patient denies any trauma to his abdomen. Patient is currently on blood thinners including Lovenox subcu as well as Plavix and aspirin. He denies any fevers. Patient currently receiving IV antibiotics m eropenem and vancomycin through a PICC line for the foot infection. Patient denies any fevers at home. He denies any vomiting. Denies any blood in his stool. Patient has had some chronic diarrhea issues since being on the antibiotics.] Physical Examination: [HEENT-PERRLA, EOMI. Cranial nerves II through XII grossly intact. TMs clear. Mucous membranes moist. No adenopathy. Cardiovascular-regular rate and rhythm without murmur or ectopy Lungs-clear to auscultation, chest wall stable without crepitus or subcu emphysema Abdomen-normoactive bowel sounds, soft. Patient has a soft tissue swelling to the right side of the abdomen measuring approximately 8 x 7 cm at its firm and tender to palpation. There is a ecchymotic discoloration to the area that is suspicious for hematoma. Extremities-intact ?4, normal range of motion, normal pulses, atraumatic] Test Results: CBC with differential normal white count of 6.5, hemoglobin 8.5, hematocrit 26.2, platelets 257. Chemistries unremarkable. CT scan of the abdomen pelvis without contrast showed a right anterior abdominal subcutaneous 5.1 x 3.3 x 5.2 cm density with some edema and several gas bubbles along the medial lateral aspect suspicious for hematoma versus possibly an abscess. My suspicion for abscess is very low as there is no erythema or warmth to this area and patient currently on several antibiotics. Suspect more likely this is a hematoma given the fact the patient is on Lovenox as well as Plavix and aspirin. [] Emergency Department Course and Treatment: [Case was discussed with general surgeon on-call Dr. Chang Sanderson who would be happy to see patient in follow- up.] Treatment Plan: [Advised to follow-up with surgeon in 2 days. Patient to use cool packs to the area.] Disposition: [Discharged home stable condition.] Impression: [Right abdominal wall hematoma.] This note was generated with [employer] dictation software. It may contain incorrect words, spelling, and punctuation that were not noted in review of the chart prior to signing ED Disposition - Plan for ED Patient: Referrals: Nawaf Villaseñor MD [Primary Care Provider] -
--- NOTE | 2018-09-02 22:32 | ED.DEP ---
ED Disposition - Plan for ED Patient: Instructions: Hematoma Referrals: Nawaf Villaseñor MD [Primary Care Provider] - Chang Solano MD [STAFF PHYSICIAN] - 2 Days Additional Instructions: use cool packs to area
[2018-09-02 23:02] VITALS: BP 135/89; PULSE 82; RESP 17; O2SAT 97
--- NOTE | 2018-09-02 23:08 | ED.RN ---
this rn called report to the [facility] at [phone].
== END 2018-09-02 23:08 | disposition home or self-care (01) ==
LOC: ED 21:18
PROVIDERS: Emergency Provider Emergency Medicine; Family Provider Family Medicine; PCP Family Medicine
DX: S30.1XXA Contusion of abdominal wall, initial encounter (principal); I10 Essential (primary) hypertension; E78.00 Pure hypercholesterolemia, unspecified; I73.9 Peripheral vascular disease, unspecified; E11.9 Type 2 diabetes mellitus without complications; Z79.02 Long term (current) use of antithrombotics/antiplatelets
CPT/HCPCS: 36592; 74176; 80048; 85025; 96360; 99284; J7030; J7050; A4216

== ENCOUNTER → 2018-12-30 10:13 | Outpatient (CLI) | payer MEDICARE, OTHER, SELFPAY ==
[2018-12-01 10:56] VITALS: BMI 30.5
[2018-12-30 13:02] LABS: Protein, Urine (Random) 59.5 mg/dL (<11.9); Protein:Creat Ratio 608 mg/g CRE (0-200)
[2018-12-30 13:07] LABS: Albumin, Serum 3.6 g/dL (3.2-5.0); BUN 20 mg/dL (7-18); BUN/Creat Ratio 12.3 RATIO (10-20); Calcium,Total 9.5 mg/dL (8.5-10.1); Chloride 104 mmol/L (98-107); Creatinine, Serum 1.63 mg/dL (0.70-1.30); EST Glomerular Filtration Rate 44 mL/min (>60); Est Glom Filt Rate - Afr Amer 53 mL/min (>60); Glucose 159 mg/dL (74-106); Magnesium 1.9 mg/dL (1.6-2.6); Phosphorus 2.9 mg/dL (2.5-4.9); Potassium 4.5 mmol/L (3.5-5.1); Sodium Level 137 mmol/L (136-145)
== END ==
PROVIDERS: Family Provider Family Medicine; PCP Family Medicine; Visit Provider Internal Medicine Nephrology
DX: N18.2 Chronic kidney disease, stage 2 (mild) (principal); E11.22 Type 2 diabetes mellitus with diabetic chronic kidney disease; E83.42 Hypomagnesemia
CPT/HCPCS: 36415; 80069; 82570; 83735; 84156

== ENCOUNTER → 2019-04-17 09:25 | Outpatient (CLI) | payer MEDICARE, OTHER, SELFPAY ==
[2018-12-01 10:56] VITALS: BMI 30.5
[2019-04-17 11:04] LABS: Albumin, Serum 3.5 g/dL (3.2-5.0); BUN 26 mg/dL (7-18); BUN/Creat Ratio 14.5 RATIO (10-20); Calcium,Total 9.4 mg/dL (8.5-10.1); Chloride 108 mmol/L (98-107); Creatinine, Serum 1.79 mg/dL (0.70-1.30); EST Glomerular Filtration Rate 39 mL/min (>60); Est Glom Filt Rate - Afr Amer 47 mL/min (>60); Glucose 205 mg/dL (74-106); Magnesium 1.8 mg/dL (1.6-2.6); Potassium 4.5 mmol/L (3.5-5.1); Sodium Level 138 mmol/L (136-145)
== END ==
PROVIDERS: PCP Family Medicine; Referring Provider Internal Medicine Nephrology; Visit Provider Internal Medicine Nephrology
DX: N18.2 Chronic kidney disease, stage 2 (mild) (principal); E83.42 Hypomagnesemia
CPT/HCPCS: 36415; 80069; 83735

== ENCOUNTER → 2019-10-11 09:14 | Outpatient (CLI) | payer MEDICARE, OTHER, SELFPAY ==
[2018-12-01 10:56] VITALS: BMI 30.5
[2019-10-11 10:09] LABS: Protein:Creat Ratio 731 mg/g CRE (0-200)
[2019-10-11 10:17] LABS: Albumin, Serum 3.5 g/dL (3.2-5.0); BUN 17 mg/dL (7-18); BUN/Creat Ratio 9.8 RATIO (10-20); Chloride 103 mmol/L (98-107); Creatinine, Serum 1.73 mg/dL (0.70-1.30); EST Glomerular Filtration Rate 41 mL/min (>60); Est Glom Filt Rate - Afr Amer 49 mL/min (>60); Glucose 155 mg/dL (74-106); Phosphorus 2.6 mg/dL (2.5-4.9); Sodium Level 138 mmol/L (136-145)
== END ==
PROVIDERS: PCP Family Medicine; Referring Provider Internal Medicine Nephrology; Visit Provider Internal Medicine Nephrology
DX: E11.22 Type 2 diabetes mellitus with diabetic chronic kidney disease (principal); N18.3 Chronic kidney disease, stage 3 (moderate)
CPT/HCPCS: 36415; 80069; 82570; 84156

== ENCOUNTER → 2020-04-19 10:08 | Outpatient (CLI) | payer MEDICARE, OTHER, SELFPAY ==
[2019-10-18 12:26] VITALS: BMI 34.0
[2020-04-19 11:38] LABS: Protein, Urine (Random) 192.1 mg/dL (<11.9); Protein:Creat Ratio 873 mg/g CRE (0-200)
[2020-04-19 12:17] LABS: Albumin, Serum 3.5 g/dL (3.2-5.0); BUN 26 mg/dL (7-18); BUN/Creat Ratio 15.2 RATIO (10-20); Calcium,Total 9.5 mg/dL (8.5-10.1); Chloride 102 mmol/L (98-107); Creatinine, Serum 1.71 mg/dL (0.70-1.30); EST Glomerular Filtration Rate 41 mL/min (>60); Est Glom Filt Rate - Afr Amer 50 mL/min (>60); Glucose 239 mg/dL (74-106); Magnesium 1.6 mg/dL (1.6-2.6); Phosphorus 3.1 mg/dL (2.5-4.9); Potassium 4.2 mmol/L (3.5-5.1); Sodium Level 135 mmol/L (136-145)
[2020-04-19 12:20] LABS: PTHIN 52.5 pg/mL (18.4-80.1)
== END ==
PROVIDERS: PCP Family Medicine; Referring Provider Internal Medicine Nephrology; Visit Provider Internal Medicine Nephrology
DX: E11.22 Type 2 diabetes mellitus with diabetic chronic kidney disease (principal); N18.30 Chronic kidney disease, stage 3 unspecified; E83.42 Hypomagnesemia
CPT/HCPCS: 36415; 80069; 82570; 83735; 83970; 84156

== ENCOUNTER 2020-05-09 09:00 | Outpatient (RCR) | payer MEDICARE, OTHER, SELFPAY ==
[2019-10-18 12:26] VITALS: BMI 34.0
[2020-05-09] MEDS: COVID-19 VACC, MRNA(PFIZER)/PF 30 MCG/0.3 ML SYRINGE IM (16:57)
[2020-05-30] MEDS: COVID-19 VACC, MRNA(PFIZER)/PF 30 MCG/0.3 ML SYRINGE IM (16:22)
== END 2020-08-08 23:59 ==
LOC: IMMUN 09:00
PROVIDERS: PCP Family Medicine; Visit Provider Family Medicine
DX: Z23 Encounter for immunization (principal)
CPT/HCPCS: 0001A; 0002A; 91300

== ENCOUNTER → 2020-06-05 14:20 | Outpatient (CLI) | payer MEDICARE, OTHER, SELFPAY ==
[2020-06-05 13:16] VITALS: BMI 33.7
--- NOTE | 2020-06-05 14:30 | RAD_ITS ---
STUDY: X-RAY CHEST REASON FOR EXAM: Male, 79 years old. Diminshed lung sound, SOB TECHNIQUE: PA and lateral views of the chest. COMPARISON: Chest x-ray report dated 08/21/2018. FINDINGS: Elevation of the right hemidiaphragm. Mild right basilar atelectasis. The bottom mild right-sided pleural effusion versus pleural thickening. Cannot exclude mild scarring involving the right lung base. Questionable calcified plaque at the right lung base. Possible ill-defined calcified plaque at the left lung base. These findings are seen best on lateral projection. Midline sternotomy wires. Normal mediastinum and ike. Normal visualized pulmonary arteries. Normal visualized aortic arch and descending thoracic aorta. There is an increased kyphosis of the thoracic spine. There is degenerative osteoarthritis of the bilateral shoulders. There is no demonstrated abnormality of the visualized soft tissue structures of the upper abdomen. RAD/Chest PA and Lateral IMPRESSION: Elevation of the right hemidiaphragm. Bilateral calcified pleural plaques. Mild right basilar atelectasis, otherwise no acute process seen. Electronically Signed: Valeri Barnes MD at 4:17 EDT , Service support ,
[2020-06-05 15:12] LABS: Absolute Lymphocyte Count 3.19 X10^3/uL (0.83-4.51); Absolute Neutrophil Count 4.6 X10^3/uL (2.0-7.7); Basophil# 0.08 X10^3/uL; Basophil% 0.9 % (0-1); Eosinophil# 0.34 X10^3/uL; Eosinophils% 3.8 % (0-5); Hematocrit 35.9 % (40-54); Hemoglobin 12.2 g/dL (13.0-16.5); Lymphocyte # 3.19 X10^3/ul (4.0); Lymphocyte % 35.7 % (19-41); Mean Corpuscular Hgb 29.7 pg (27.0-32.0); Mean Corpuscular Volume 87.3 fL (80-94); Mean Platelet Vol. 9.5 fl (6.2-12.0); Monocyte# 0.67 X10^3/uL; Monocyte% 7.5 % (0-10); NRBC Flagged by Analyzer 0 % (0-5); Neutrophil # 4.62 X10^3/uL (2.7-7.7); Neutrophil % 51.8 % (47-70); Platelet Count 206 K/mm3 (150-450); RBC Distribution Width CV 12.3 % (11.6-14.6); RBC Distribution Width SD 39.1 fl (35.1-43.9); Red Blood Count 4.11 M/mm3 (4.6-6.2); White Blood Count 8.9 K/mm3 (4.4-11.0)
[2020-06-05 15:34] LABS: BNP,B-Type NATRIURETIC PEPTIDE 112.1 pg/mL (0-100)
[2020-06-05 15:48] LABS: Anion Gap 4 (5-15); BUN 27 mg/dL (7-18); BUN/Creat Ratio 14.4 RATIO (10-20); Calcium,Total 9.6 mg/dL (8.5-10.1); Chloride 105 mmol/L (98-107); Creatinine, Serum 1.87 mg/dL (0.70-1.30); EST Glomerular Filtration Rate 37 mL/min (>60); Est Glom Filt Rate - Afr Amer 45 mL/min (>60); Glucose 140 mg/dL (74-106); Potassium 4.5 mmol/L (3.5-5.1); Sodium Level 135 mmol/L (136-145)
== END ==
PROVIDERS: PCP Family Medicine; Referring Provider Nurse Practitioner Family; Visit Provider Nurse Practitioner Family
DX: R06.00 Dyspnea, unspecified (principal)
CPT/HCPCS: 36415; 71046; 80048; 83880; 85025

== ENCOUNTER → 2020-08-16 09:35 | Outpatient (CLI) | payer MEDICARE, OTHER, SELFPAY ==
[2020-06-05 13:16] VITALS: BMI 33.7
--- NOTE | 2020-08-16 09:44 | ART_ITS ---
Reason For Study: PVD Procedure A bilateral lower extremity continuous wave Doppler with analog waveform analysis,segmental pressures,and ankle brachial indexes without exercise. Left Segmental Pressures Left brachial= 161mmHg. Left calf = 181mmHg. Left posterior tibial artery = 108mmHg. Left dorsalis pedis artery = 170mmHg. Left digit = 60 mmHg. No thigh pressure, patient unable to tolerate compression. Right Segmental Pressures Right brachial= 171mmHg. Right posterior tibial artery = 177mmHg. Right dorsalis pedis artery = 204mmHg. Indices The right ankle brachial index by the posterior tibial artery is 1.04. The right ankle brachial index by the dorsalis pedis is 1.19. The left ankle brachial index by the posterior tibial artery is 0.63. The left ankle brachial index by the dorsalis pedis is 0.99. The left digital-brachial index is 0.35. VL/Lower Ext Art Exam w/o Exercis Interpretation Summary Triphasic and biphasic Doppler waveforms are noted at ankle level on the right. Biphasic Doppler waveforms are noted at ankle level on the left. Pulse-volume recordings appear satisfactory bilaterally. Resting ankle-brachial indices are normal bilaterally. The right d igital-brachial index was not determined. The left digital-brachial index is moderately to severely d iminished. Arterial flow appears normal at ankle level bilaterally. However, there is evid ence of regional, angiosomal arterial occlusive disease in the left lower extremity. Arterial mayito w was not assessed at digital level on the right. There is evidence of mvllilnt-pu-cwzrpw distal, sma ll-vessel arterial occlusive at digital level on the left. Ordering Physician: Keenan Oliver Referring Physician: Keenan Oliver Performed By: Alla Cochran RDCS/RVT
== END ==
PROVIDERS: PCP Family Medicine; Referring Provider Podiatrist; Visit Provider Podiatrist
DX: I73.9 Peripheral vascular disease, unspecified (principal)
CPT/HCPCS: 93923

== ENCOUNTER 2021-11-21 11:54 | Inpatient (IN) | payer MEDICARE, SELFPAY ==
--- NOTE | 2021-11-21 11:58 | ART_ITS ---
Reason For Study: Ulcer Procedure A bilateral lower extremity continuous wave Doppler with analog waveform analysis,segmental pressures,and ankle brachial indexes without exercise. Left Segmental Pressures Left brachial= 142mmHg. Left posterior tibial artery = 115mmHg. Left dorsalis pedis artery = 142mmHg. The left dorsalis pedis waveforms are biphasic. The left posterior tibial artery waveforms are biphasic. Right Segmental Pressures Right posterior tibial artery = 152mmHg. Right dorsalis pedis artery = 167mmHg. The right dorsalis pedis waveforms are biphasic. The right posterior tibial artery waveforms are biphasic. Indices The right ankle brachial index by the dorsalis pedis is 1.18. The right ankle brachial index by the posterior tibial artery is 1.07. The left ankle brachial index by the dorsalis pedis is 1.00. The left ankle brachial index by the posterior tibial artery is 0.81. VL/Lower Ext Art Exam w/o Exercis Interpretation Summary Right ANTONIETTA 1.18, normal. Doppler/PVR waveforms of the right leg normal at rest. Left ANTONIETTA 1.0, normal. Doppler/PVR waveforms of the left leg normal at rest. Ordering Physician: Keenan Oliver Referring Physician: Nawaf Villaseoñr Performed By: Marianne Roque RVT
--- NOTE | 2021-11-21 11:58 | MRI_ITS ---
EXAM: MR LEFT LOWER EXTREMITY WITHOUT INTRAVENOUS CONTRAST, FOOT CLINICAL INDICATION: necrotic ulcer, osteomyelitis TECHNIQUE: Multiplanar and multisequence MR images of the left foot without intravenous contrast. This report was created using [employer] report generation technology. COMPARISON: X-ray 11/21/2021. FINDINGS: Flexor and extensor tendons are not adequately assessed due to motion artifact. FLUID: No joint demonstrated effusion. BONES/JOINTS: No obvious marrow signal abnormality to indicate fracture, bone contusion or infiltration. No demonstrated cortical destruction. OTHER SOFT TISSUES: Dorsal soft tissue edema. No obvious soft tissue collection. Quality: The study is significantly limited due to patient motion on multiple pulse sequences. MRI/Lower Ext/No Jt/w/o IMPRESSION: Extremely limited study. Significant findings could be missed. No evidence of osteomyelitis. Electronically Signed: Nohemi Wilson MD at 18:18 EDT Reading Location ID and State: [id number] / Tel , Service support ,
--- NOTE | 2021-11-21 12:00 | HP.PCM_ITS ---
[facility] - General General Date of Admission: 11/21/21 Chief Complaint: Left foot ulcer HPI Narrative PAULINA OSORIO, is a 81 M who presented to my office this morning for a wound on the bottom of the left foot. He relates it started about 2-3 months ago - he did not come in for care until today. There is noted blackness, with swelling and redness. There is also oder coming from it. He has diabetes with peripheral neuropathy, so he has no pain. He also has hx of peripheral vascular disease. He has TMA on right foot. [facility] and concern for osteomyelitis in the setting of significant peripheral vascular disease and diabetes. He relates he has been dizzy for the past month or two. [facility] Medical History (Updated 11/21/21 @ 12:[address] Keenan Oliver, DPM) Atherosclerosis of coronary artery bypass graft of [place] heart Atherosclerosis of coronary artery of [place] heart without angina pectoris Bacteremia Bone fracture Cellulitis of right lower extremity Delayed wound healing DM type 2, uncontrolled, with renal complications Essential hypertension Hearing problem Hyperlipidemia Hyperlipidemia associated with type 2 diabetes mellitus Malnutrition Osteomyelitis of foot, acute PAD (peripheral artery disease) Pneumonia 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 Uncontrolled type 2 diabetes mellitus, with long-term current use of insulin Home Medications aspirin 81 mg tablet,delayed release (Adult Aspirin Regimen) 81 mg PO DAILY heart 05/29/17 [History Last Taken 08/21/18] coenzyme Q10 100 mg capsule (Co Q-10) 100 mg PO DAILY supplement 06/04/17 [History Last Taken 08/20/18] krill 1,000 mg-omega-3 170 mg-dha 50 mg-epa 80 jl-admdnw-sowgu capsule 1 cap PO DAILY 08/21/18 [History Last Taken 08/20/18] vpghdfkf-jqz-dizse acid 0.4 mg-lycopene 300 mcg-lutein 250 mcg tablet 1 tab PO DAILY supplement 08/21/18 [History Last Taken 08/20/18] insulin lispro 100 unit/mL subcutaneous pen See Protocol subcut ACHS & 3AM 08/27/18 [Rx Last Taken Unknown] calcium carb-vit I4-twupatrfh-fafj 333 mg-200 unit-133 mg-5 mg tablet 1 tab PO DAILY 10/18/19 [History Last Taken Unknown] insulin glargine 100 unit/mL (3 mL) subcutaneous pen 25 unit subcut DAILY 10/18/19 [History Last Taken Unknown] omega-3 fatty acids 1,000 mg capsule (Fish Oil Concentrate) 1,000 mg PO BID 10/18/19 [History Last Taken Unknown] amiloride 5 mg tablet 5 mg PO BID heart #180 tabs 10/05/20 [Rx Last Taken Unknown] doxazosin 2 mg tablet 2 mg PO BID prostate #180 tabs 10/05/20 [Rx Last Taken Unknown] metoprolol succinate 25 mg tablet,extended release 24 hr 25 mg PO DAILY #90 tabs 12/14/20 [Rx Last Taken Unknown] losartan 50 mg tablet 50 mg PO DAILY 08/10/21 [History Last Taken Unknown] Allergy/AdvReac Type Severity Reaction Status Date / Time glyburide Allergy Intermediate Unknown Verified 09/06/20 08:51 Iodinated Contrast Media Allergy Rash Verified 09/06/20 08:51 [CONTRASTS] amlodipine [From Norvasc] AdvReac Unknown Unknown Verified 09/06/20 08:51 atorvastatin [From Lipitor] AdvReac Unknown Unknown Verified 09/06/20 08:51 cerivastatin [From Baycol] AdvReac Unknown Unknown Verified 09/06/20 08:51 enalapril AdvReac Unknown Unknown Verified 09/06/20 08:51 exenatide [From Byetta] AdvReac Unknown Unknown Verified 09/06/20 08:51 ezetimibe [From Zetia] AdvReac Unknown Unknown Verified 09/06/20 08:51 fenofibrate [From Tricor] AdvReac Unknown Unknown Verified 09/06/20 08:51 gemfibrozil AdvReac Unknown Unknown Verified 09/06/20 08:51 glipizide [From Glucotrol] AdvReac Unknown Unknown Verified 09/06/20 08:51 labetalol AdvReac Unknown Unknown Verified 09/06/20 08:51 lovastatin [From Mevacor] AdvReac Unknown Unknown Verified 09/06/20 08:51 metformin [From Glucophage] AdvReac Unknown Unknown Verified 09/06/20 08:51 niacin AdvReac Unknown Unknown Verified 09/06/20 08:51 [From Niaspan Extended-Release] nifedipine [From Adalat] AdvReac Unknown Unknown Verified 09/06/20 08:51 quinapril [From Accupril] AdvReac Unknown Unknown Verified 09/06/20 08:51 repaglinide [From Prandin] AdvReac Unknown Unknown Verified 09/06/20 08:51 rosuvastatin [From Crestor] AdvReac Unknown Unknown Verified 09/06/20 08:51 simvastatin [From Zocor] AdvReac Unknown Unknown Verified 09/06/20 08:51 Family History Mother Diabetes Father , Age 56 Myocardial infarction Brother Diabetes Brother Diabetes Brother Multiple sclerosis Surgical History History of coronary artery bypass graft History of lung surgery 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 CFT < 3 seconds to the toes on the left foot. No streaking present to the left foot. No acute ischemia to the foot bilateral. No open lesions on the right foot. Peripheral neuropathy bilateral foot - this is chronic. There is TMA right foot. Assessment & Plan Assessment/Plan (1) Non-pressure chronic ulcer of other part of left foot with necrosis of bone: (2) Other specified peripheral vascular diseases: (3) Type 2 diabetes mellitus with foot ulcer: (4) Cellulitis of left lower limb: (5) Acute painful diabetic polyneuropathy: (6) Osteomyelitis of ankle or foot, left, acute: PLAN: Plan Patient was seen and evaluated. He will be admitted due to necrotic left foot infection in the setting of peripheral vascular disease and diabetes. He is at risk for limb loss. A culture was obtained of the ulceration and sent to microbiology for further evaluation. New left foot xrays, as well as MRI was ordered for further evaluation of the left foot. New LEAS were ordered, and vascular specialist will need to be consulted. Will consult Infectious disease specialist. No weightbearing left foot. Hospitalist service will be consulted for diabetes and patient's other medical problems.
--- NOTE | 2021-11-21 12:31 | CON.PCM.HO_ITS ---
Assessment & Plan Assessment/Plan (1) Osteomyelitis of ankle or foot, left, acute: (2) Non-pressure chronic ulcer of other part of left foot with necrosis of bone: PLAN: Plan This is a 81-year-old gentleman with history of diabetes mellitus type 2, complicated with diabetic neuropathy, previous right TMA admitted with left diabetic foot ulcer on plantar aspect for 2 to 3 months. 1. Left diabetic foot ulcer with high suspicion of acute osteomyelitis and surrounding cellulitis of left lower heel and distal leg. Wound photo reviewed. Patient is admitted under podiatry service. On IV vancomycin and meropenem. X-ray of the foot and MRI of foot ordered. ESR and CRP elevated. ID and wound nurse is consulted. History of MRSA right foot stump osteomyelitis/cellulitis complicated with MRSA bacteremia for which she was admitted in August 2018 and had right TMA. Patient does not have clinical features or organ dysfunction suggestive of sepsis therefore sepsis ruled out. 2. Moderate to severe lower extremity digital level peripheral arterial disease: Patient had arterial duplex study in August 2020 reported as left ANTONIETTA 0.99 by dorsalis artery with biphasic Doppler waveform noted on ankle. The [facility] ANTONIETTA is 1.19. ANTONIETTA suggestive of moderate to severe distal small vessel arterial occlusive disease at the digital level on the left. Patient on baby aspirin continued. Repeat lower extremity arterial study ordered. 3. Coronary artery disease status post CABG: Last echo in August 2018 EF 60%, st age II diastolic dysfunction, mild MR PASP 44 mmHg, no vegetation. Overall suggestive of chronic HFpEF. Continue home medications. Last EKG in August 2018 reported as normal sinus rhythm with old inferior infarct at 83 bpm. Serum magnesium and phosphorus level are normal. Repeat EKG ordered 4. 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 His creatinine is on baseline about 1.8. Gradually worsening it was 1.6 in 12/2018, increased to 1.71 in April 2020. Last protein creatinine ratio is 873 high therefore CKD stage G3 B. Electrolytes in normal range. 5. VT prophylaxis, high risk: Heparin 5000 units subcutaneous 3 times daily. 6. Other chronic comorbidities include bilateral scrotal swelling, right more than left, hearing loss: As per patient he had work-up for the scrotal swelling and is not cancer and it is same for many years since his early age. He is not much concerned with that. Recommended outpatient follow-up with PCP. Total time of the visit including total time spent in counseling or coordination of care, (more than 50% of the total time, spent in obtaining medical information from nurses and other ancillary care providers,explaining to the patient about labs, imaging, diagnosis and management of active complex medical conditions), discussion with admitting attending, review of labs and imaging is 50 minutes. Living will/advanced directive/end of life care: Patient does have living will or advanced directive. His present in the room is power of attorney general for health. After discussion of benefits/risks procedures involved with full code, DNR CC arrest and DNR CC, the patient stated she does not want to be vegetable at the end of his life. He wants to peacefully. Patient doesn't want artificial life support including intubation, tube feed, ventilator and/chest compression, central venous catheter, vasopressor and DC shock if needed Total time spent in [id number]-ty-[id number] encounter in discussion of advanced directive 16 minutes. HPI Consult Data Date of Consult: 11/21/21 HPI Narrative Reason for Consultation: Management of diabetes mellitus type 2, diabetic neuropathy and foot ulcer HPI Narrative: PAULINA OSORIO, is a 81 M who is directly admitted from wound center for left diabetic foot ulcer, plantar side. The ulcer started about 2 to 3 months ago, noted by his industrial engineer Dr. Oliver today at wound center, black with swelling and redness and foul order. Patient did not come to wound center for 2 to 3 months after he noticed swelling/ulcer on left foot. He also feels dizzy for past 1 to 2 months. Patient had right TMA in August 2018. Patient also has history of peripheral arterial disease and diabetic neuropathy therefore he does not feel sensation especially in the forefoot. Patient denies any fever or chills. Patient was further admitted for management of diabetic foot ulcer with concern of osteomyelitis. Patient keeps his record of glucose and blood pressure in both arms. His record of glucose shows that he checks blood sugar in the morning before breakfast, ranges from 170?210. His blood pressure ranges in systolic 120s to 130s [facility] Medical History Atherosclerosis of coronary artery bypass graft of [place] heart Atherosclerosis of coronary artery of [place] without angina pectoris Bacteremia Bone fracture Cellulitis of right lower extremity Delayed wound healing Dizziness DM type 2, uncontrolled, with renal complications Essential hypertension Hearing problem Hyperlipidemia Hyperlipidemia associated with type 2 diabetes mellitus Malnutrition Osteomyelitis of foot, acute PAD (peripheral artery disease) Pneumonia Restless legs 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 Uncontrolled type 2 diabetes mellitus, with long-term current use of insulin Home Medications aspirin 81 mg tablet,delayed release (Adult Aspirin Regimen) 81 mg PO DAILY heart 05/29/17 [History Last Taken 11/21/21] coenzyme Q10 100 mg capsule (Co Q-10) 100 mg PO DAILY supplement 06/04/17 [History Last Taken 11/21/21] zlgavgmk-loj-zicmc acid 0.4 mg-lycopene 300 mcg-lutein 250 mcg tablet 1 tab PO DAILY supplement 08/21/18 [History Last Taken 11/21/21] calcium carb-vit P4-ftegkvuaw-susd 333 mg-200 unit-133 mg-5 mg tablet 1 tab PO DAILY supplement 10/18/19 [History Last Taken 11/21/21] insulin glargine 100 unit/mL (3 mL) subcutaneous pen 25 unit subcut BID dm 10/18/19 [History Last Taken 11/21/21] omega-3 fatty acids 1,000 mg capsule (Fish Oil Concentrate) 1,000 mg PO BID 10/18/19 [History Last Taken Unknown] amiloride 5 mg tablet 5 mg PO BID heart #180 tabs 10/05/20 [Rx Last Taken 11/21/21] doxazosin 2 mg tablet 2 mg PO BID prostate #180 tabs 10/05/20 [Rx Last Taken 11/21/21] losartan 50 mg tablet 50 mg PO DAILY heart 08/10/21 [History Last Taken 11/21/21] insulin aspart U-100 100 unit/mL (3 mL) subcutaneous pen (Novolog Flexpen U-100 Insulin aspart) 5 unit subcut LUNCH dm 11/21/21 [History Last Taken Unknown] insulin aspart U-100 100 unit/mL (3 mL) subcutaneous pen (Novolog Flexpen U-100 Insulin aspart) 15 sliding scale dose subcut BREAKFAST DM 11/21/21 [History Last Taken 11/21/21] insulin aspart U-100 100 unit/mL (3 mL) subcutaneous pen (Novolog Flexpen U-100 Insulin aspart) 20 unit subcut DINNER dm 11/21/21 [History Last Taken Unknown] insulin lispro 100 unit/mL subcutaneous pen See Protocol SC ACHS dm 11/21/21 [History Last Taken 11/21/21] metoprolol succinate 25 mg tablet,extended release 24 hr 12.5 mg PO BID heart 11/21/21 [History Last Taken 11/21/21] Allergy/AdvReac Type Severity Reaction Status Date / Time glyburide Allergy Intermediate Unknown Verified 09/06/20 08:51 Iodinated Contrast Media Allergy Rash Verified 09/06/20 08:51 [CONTRASTS] amlodipine [From Norvasc] AdvReac Unknown Unknown Verified 09/06/20 08:51 atorvastatin [From Lipitor] AdvReac Unknown Unknown Verified 09/06/20 08:51 cerivastatin [From Baycol] AdvReac Unknown Unknown Verified 09/06/20 08:51 enalapril AdvReac Unknown Unknown Verified 09/06/20 08:51 exenatide [From Byetta] AdvReac Unknown Unknown Verified 09/06/20 08:51 ezetimibe [From Zetia] AdvReac Unknown Unknown Verified 09/06/20 08:51 fenofibrate [From Tricor] AdvReac Unknown Unknown Verified 09/06/20 08:51 gemfibrozil AdvReac Unknown Unknown Verified 09/06/20 08:51 glipizide [From Glucotrol] AdvReac Unknown Unknown Verified 09/06/20 08:51 labetalol AdvReac Unknown Unknown Verified 09/06/20 08:51 lovastatin [From Mevacor] AdvReac Unknown Unknown Verified 09/06/20 08:51 metformin [From Glucophage] AdvReac Unknown Unknown Verified 09/06/20 08:51 niacin AdvReac Unknown Unknown Verified 09/06/20 08:51 [From Niaspan Extended-Release] nifedipine [From Adalat] AdvReac Unknown Unknown Verified 09/06/20 08:51 quinapril [From Accupril] AdvReac Unknown Unknown Verified 09/06/20 08:51 repaglinide [From Prandin] AdvReac Unknown Unknown Verified 09/06/20 08:51 rosuvastatin [From Crestor] AdvReac Unknown Unknown Verified 09/06/20 08:51 simvastatin [From Zocor] AdvReac Unknown Unknown Verified 09/06/20 08:51 Family History Mother Diabetes Father , Age 56 Myocardial infarction Brother Diabetes Brother Diabetes Brother Multiple sclerosis Surgical History History of coronary artery bypass graft History of lung surgery 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 HEENT: Reports systems reviewed and no addt'l complaints, except as documented Respiratory/Chest: Denies chest pain, shortness of breath at rest or with exertion Gastrointestinal: Denies coffee ground emesis, hematemesis or vomiting Genitourinary: Bilateral scrotal swelling, right more than left. Denies burning urination or new urinary tract symptoms Musculoskeletal: Right TMA. Flap is well-healed looks good. Neurologic: Denies seizure-like activity skin: Ulcer over plantar aspect of left foot. Right TMA. Small abrasion over right moses with Band-Aid Endocrinology: Reports systems reviewed and no addt'l complaints, except as documented Hematologic/Lymphatic: Reports systems reviewed and no addt'l complaints, except as documented Rest 14 ROS are negative except as mentioned in HPI Physical Exam Narrative Physical exam General: Alert, Oriented x3, Cooperative HEENT: Bilateral moderate hearing loss. Atraumatic, PERRLA, EOMI, Normocephalic Oral: No Gingival or Mucosal Lesions/ Ulcerations Neck: Supple, No JVD, Negative Carotid Bruits Lungs: Air entry diminished in bilateral lung bases. No crepitation/rhonchi Cardiovascular: Regular rate, Regular Rhythm, Normal S1, Normal S2, No murmurs Abdomen: Bowel Sounds Present, Soft, Non Tender, Non-Distended : Large scrotal swelling, right more than left. Can get over the scrotal swelling. No obvious impulse on coughing or transmitted pulse. No suprapubic tenderness. Extremities: No edema, Capillary Refill Less than 3 Seconds Skin: Left fourth metatarsal head ulcer, about 2 cm, oval shape., Covered with necrotic black color eschar with foul order with surrounding edema and erythema to the distal dorsal foot. Musculoskeletal: Status post right TMA. No Tenderness to Palpation of Joints or Extremities Neurological: Decreased sensation of left forefoot. Loss of position and vibration sensation. Cranial nerves II-XII grossly intact, DTR 2+/4 Psych/Mental Status: Normal Affect, Appropriate. Lab / Micro Data Result Diagrams: 11/21/21 13:10 11/21/21 13:10 Charges/Coding Visit Charges Office Visits / Consults: 39248 IP Consult L4 Multi Select Codes Hospitalists' Procedures Procedures: 74057 Advncd Care Plan 30 Min
[2021-11-21 12:39] VITALS: BMI 30.8
--- NOTE | 2021-11-21 13:07 | WOUNDNOTE ---
wound photo: left plantar foot
--- NOTE | 2021-11-21 13:08 | WOUNDNOTE ---
skin photo: left dorsal foot
[2021-11-21 13:24] LABS: Absolute Neutrophil Count 5.9 X10^3/uL (2.0-7.7); Basophil# 0.06 X10^3/uL; Basophil% 0.7 % (0-1); Eosinophil# 0.12 X10^3/uL; Eosinophils% 1.4 % (0-5); Hematocrit 35.9 % (40-54); Hemoglobin 12.1 g/dL (13.0-16.5); Lymphocyte % 22.3 % (19-41); Mean Corp Hgb Conc 33.7 g/dL (32-36); Mean Corpuscular Hgb 29.3 pg (27.0-32.0); Mean Corpuscular Volume 86.9 fL (80-94); Mean Platelet Vol. 8.9 fl (6.2-12.0); Monocyte# 0.58 X10^3/uL; Monocyte% 6.8 % (0-10); NRBC Flagged by Analyzer 0 % (0-5); Neutrophil # 5.85 X10^3/uL (2.7-7.7); Neutrophil % 68.6 % (47-70); Platelet Count 220 K/mm3 (150-450); RBC Distribution Width CV 12.3 % (11.6-14.6); Red Blood Count 4.13 M/mm3 (4.6-6.2); White Blood Count 8.5 K/mm3 (4.4-11.0)
[2021-11-21 13:40] LABS: ALB/GLOB Ratio 0.6 RATIO (0.9-2.4); AST(SGOT) 16 U/L (15-37); Alanine Aminotransfer ALT/SGPT 22 U/L (16-61); Albumin, Serum 3.1 g/dL (3.2-5.0); Alkaline Phosphatase 92 U/L (45-117); Anion Gap 5 (5-15); BUN 28 mg/dL (7-18); BUN/Creat Ratio 15.3 RATIO (10-20); Calcium,Total 9.4 mg/dL (8.5-10.1); Chloride 106 mmol/L (98-107); Creatinine, Serum 1.83 mg/dL (0.70-1.30); EST Glomerular Filtration Rate 38 mL/min (>60); Est Glom Filt Rate - Afr Amer 46 mL/min (>60); Estimated Creatinine Clearance 32.69 ml/min; Globulin 4.9 g/dL (2.2-4.2); Glucose 186 mg/dL (74-106); Magnesium 1.8 mg/dL (1.6-2.6); Potassium 4.5 mmol/L (3.5-5.1); Sodium Level 137 mmol/L (136-145)
[2021-11-21 13:42] LABS: Erythrocyte Sedimentation Rate 73 mm/hr (0-20)
[2021-11-21 13:44] LABS: Phosphorus 2.5 mg/dL (2.5-4.9)
[2021-11-21 14:09] VITALS: BP 141/61; PULSE 63; RESP 18; TEMP 36.6; O2SAT 99
--- NOTE | 2021-11-21 15:40 | RAD_ITS ---
STUDY: LEFT FOOT X-RAY SERIES OF 1551 HOURS ON 11/21/2021 CLINICAL: 81-year-old male with a suspicion of the fourth metatarsal and toe infection. TECHNIQUE: 3 view(s) of the foot. COMPARISON: None. FINDINGS: Specifically, there is no evidence of an osteomyelitis or periostitis of the left fourth metatarsal or left fourth toe. There is no evidence of osteomyelitis or periostitis of the other osseous structures of the left foot. There is no evidence of fractures or dislocations. There are hammertoe deformities of the third through fifth toes. There are small Achilles and calcaneal spurs. There is a normal pedal arch. Normal soft tissues. No subcutaneous emphysema or radiopaque foreign bodies. RAD/Foot min 3 Views IMPRESSION: 1. No osteomyelitis or periostitis the left fourth metatarsal or left fourth toe. 2. No osteomyelitis or periostitis of the remaining osseous structures of the left foot. 3. No fractures or dislocations. 4. No osseous lytic, sclerotic or mass lesions. 5. Small Achilles and calcaneal spurs. 6. Normal soft tissues. No subcutaneous emphysema or radiopaque foreign bodies. Electronically Signed: Sammy Mueller MD at 17:02 EDT ,
[2021-11-21] MEDS: 0.9% Saline Lock 10 ML Syringe IV (16:01)
[2021-11-21 16:14] LABS: M R Staph aureus DNA By PCR Negative (Negative); Probe Check PASS; Specimen Processing Control PASS; Staph aureus DNA By PCR NEGATIVE (Negative)
[2021-11-21] MEDS: Insulin Lispro 100 UNIT/ML INSULN.PEN 15 UNIT SC (16:33)
[2021-11-21 16:51] LABS: Bedside Glucose 144 mg/dL (74-106)
--- NOTE | 2021-11-21 17:42 | PCM.RX.CS ---
Consult Pharmacy has been consulted to manage selected antiobiotic: Vancomycin Type of Consult: New start Suspected Infection: Skin/Soft tissue, Osteomyelitis Labs: Sodium 137 mmol/L (136-145) 11/21/21 13:10 Potassium 4.5 mmol/L (3.5-5.1) 11/21/21 13:10 Chloride 106 mmol/L (98-107) 11/21/21 13:10 Carbon Dioxide 26.0 mmol/L (21.0-32.0) 11/21/21 13:10 Anion Gap 5 (5-15) 11/21/21 13:10 BUN 28 mg/dL (7-18) H 11/21/21 13:10 Creatinine 1.83 mg/dL (0.70-1.30) H 11/21/21 13:10 Est GFR (MDRD) Af Amer 46 mL/min (>60) L 11/21/21 13:10 Est GFR (MDRD) Non-Af 38 mL/min (>60) L 11/21/21 13:10 BUN/Creatinine Ratio 15.3 RATIO (10-20) 11/21/21 13:10 Glucose 186 mg/dL (74-106) H 11/21/21 13:10 Goal Trough: 15-20 mcg/mL Pharmacy Plan for Drug Dosing: NEW START IV VANCOMYCIN Consulting Physician: Dr. Mauricio Indication: Osteo/SSTI Goal Trough: 15-20 SrCr: 1.83 CrCl: 33 mL/min Comments: Loading dose 2g IV x1 ordered and administered 11/21/21 @1633 Vancomycin Dose: 1500mg IV Q24hr to start 11/22/21 @1600 Pending Level: 11/23/21 @1530 prior to 3rd total dose per protocol Pharmacy Service will continue to monitor and adjust dosing as required.
[2021-11-21 17:44] VITALS: BP 138/54; PULSE 59; RESP 18; TEMP 36.5; O2SAT 98
[2021-11-21 21:30] VITALS: BP 124/82; PULSE 65; RESP 16; TEMP 36.8; O2SAT 97
[2021-11-21 22:08] VITALS: PULSE 65
[2021-11-21] MEDS: Doxazosin 1 MG Tablet 2 MG PO (22:08)
[2021-11-21] MEDS: Metoprolol(XL)Succ 25 MG Tablet 12.5 MG PO (22:08)
[2021-11-21] MEDS: Insulin Glargine-YFGN 100 UNIT/ML Pen 10 UNIT SC (22:17)
[2021-11-21 23:10] LABS: Bedside Glucose 88 mg/dL (74-106)
[2021-11-22] VITALS (8 sets, daily range): BP systolic 117–154; BP diastolic 50–66; PULSE 57–66; RESP 18; TEMP 36.5–36.9; O2SAT 94–97
[2021-11-22 06:20] LABS: Absolute Neutrophil Count 4.3 X10^3/uL (2.0-7.7); Basophil# 0.07 X10^3/uL; Basophil% 1.1 % (0-1); Eosinophil# 0.18 X10^3/uL; Eosinophils% 2.7 % (0-5); Hematocrit 33.4 % (40-54); Hemoglobin 11.4 g/dL (13.0-16.5); Lymphocyte % 21.2 % (19-41); Mean Corp Hgb Conc 34.1 g/dL (32-36); Mean Corpuscular Hgb 29.5 pg (27.0-32.0); Mean Corpuscular Volume 86.3 fL (80-94); Mean Platelet Vol. 9.2 fl (6.2-12.0); Monocyte% 9.1 % (0-10); NRBC Flagged by Analyzer 0 % (0-5); Neutrophil # 4.33 X10^3/uL (2.7-7.7); Neutrophil % 65.7 % (47-70); Platelet Count 200 K/mm3 (150-450); RBC Distribution Width CV 12.3 % (11.6-14.6); RBC Distribution Width SD 38.6 fl (35.1-43.9); Red Blood Count 3.87 M/mm3 (4.6-6.2); White Blood Count 6.6 K/mm3 (4.4-11.0)
[2021-11-22 06:31] LABS: Bedside Glucose 89 mg/dL (74-106)
[2021-11-22 06:52] LABS: Anion Gap 5 (5-15); BUN 22 mg/dL (7-18); BUN/Creat Ratio 14.1 RATIO (10-20); Calcium,Total 8.9 mg/dL (8.5-10.1); Chloride 108 mmol/L (98-107); Creatinine, Serum 1.56 mg/dL (0.70-1.30); EST Glomerular Filtration Rate 46 mL/min (>60); Est Glom Filt Rate - Afr Amer 55 mL/min (>60); Estimated Creatinine Clearance 38.35 ml/min; Glucose 80 mg/dL (74-106); Potassium 4.3 mmol/L (3.5-5.1); Sodium Level 140 mmol/L (136-145); Thyroid Stim Hormone (TSH) 1.79 uIU/mL (0.358-3.74)
[2021-11-22] MEDS: Multivitamins,Ther W-Minerals Tablet 1 TABLET PO (08:45)
[2021-11-22] MEDS: Aspirin E.C. 81 MG Tablet PO (08:45)
--- NOTE | 2021-11-22 09:39 | PN.HOSP_ITS ---
Subjective Subjective Patient complained that he felt dizzy on walking to bathroom but denies shaking, tremors, sweating, anxiety or nervousness. His glucose finger checks 88 at night and 89 in the morning. Lantus dose decreased with holding parameters Objective Data Objective Data Vital Signs: Vital Signs Temp Pulse Resp BP Pulse Ox O2 Del Method 97.7 F L 61 18 117/59 L 94 Room Air 11/22/21 08:43 11/22/21 08:43 11/22/21 08:43 11/22/21 08:43 11/22/21 08:43 11/22/21 08:43 Oxygen Delivery Method Room Air Weight: 216 lb 4.375 oz Body Mass Index (BMI) 30.8 Intake & Output: Intake and Output for Last 24 Hours 11/20/21 11/21/21 11/22/21 23:59 23:59 23:59 Intake Total 660 / 660 120 / 120 Balance 660 / 660 120 / 120 Lab / Micro Data Result Diagrams: 11/22/21 05:35 11/22/21 05:35 Labs: Laboratory Results - last 24 hr 11/21/21 11:00: S.aureus Protein A PCR NEGATIVE, MRSA (PCR) Negative 11/21/21 13:10: WBC 8.5, RBC 4.13 L, Hgb 12.1 L, Hct 35.9 L, MCV 86.9, MCH 29.3, MCHC 33.7, RDW Std Deviation 39.0, RDW Coeff of Kelsey 12.3, Plt Count 220, MPV 8 .9, Immature Gran % (Auto) 0.200, Neut % (Auto) 68.6, Lymph % (Auto) 22.3, [place] % (Auto) 6.8, Eos % (Auto) 1.4, Baso % (Auto) 0.7, Absolute Neuts (auto) 5.9, Absolute Lymphs (auto) 1.90, Nucleated RBC % 0, ESR 73 H 11/21/21 13:10: Sodium 137, Potassium 4.5, Chloride 106, Carbon Dioxide 26.0, Anion Gap 5, BUN 28 H, Creatinine 1.83 H, Estim Creat Clear Calc 32.69, Est GFR (MDRD) Af Amer 46 L, Est GFR (MDRD) Non-Af 38 L, BUN/Creatinine Ratio 15.3, G lucose 186 H, Calcium 9.4, Magnesium 1.8, Total Bilirubin 0.50, AST 16, ALT 22, Alkaline Phosphatase 92, C-React Prot Ext Range 47.60 H, Total Protein 8.0, Albumin 3.1 L, Globulin 4.9 H, Albumin/Globulin Ratio 0.6 L 11/21/21 13:10: Phosphorus 2.5 11/21/21 16:24: POC Glucose 144 H 11/21/21 22:12: POC Glucose 88 11/22/21 05:35: WBC 6.6, RBC 3.87 L, Hgb 11.4 L, Hct 33.4 L, MCV 86.3, MCH 29.5, MCHC 34.1, RDW Std Deviation 38.6, RDW Coeff of Kelsey 12.3, Plt Count 200, MPV 9.2, Immature Gran % (Auto) 0.200, Neut % (Auto) 65.7, Lymph % (Auto) 21.2, Charles % (Auto) 9.1, Eos % (Auto) 2.7, Baso % (Auto) 1.1 H, Absolute Neuts (auto) 4.3, Absolute Lymphs (auto) 1.40, Nucleated RBC % 0 11/22/21 05:35: Sodium 140, Potassium 4.3, Chloride 108 H, Carbon Dioxide 27.0, Anion Gap 5, BUN 22 H, Creatinine 1.56 H, Estim Creat Clear Calc 38.35, Est GFR (MDRD) Af Amer 55 L, Est GFR (MDRD) Non-Af 46 L, BUN/Creatinine Ratio 14.1, Glucose 80, Calcium 8.9, TSH 1.79 11/22/21 06:04: POC Glucose 89 Micro: Microbiology 11/21/21 11:00 Wound - Left Foot Gram Stain - Final 11/21/21 11:00 Wound - Left Foot Wound Culture - Preliminary Mixed Gram Positive Organisms Radiography Diagnostic Testing: Radiology Impression Lower Extremity MRI 11/21/21 11:58 IMPRESSION: Extremely limited study. Significant findings could be missed. No evidence of osteomyelitis. Electronically Signed: Nohemi Wilson MD at 18:18 EDT Reading Location ID and State: [id number] / Tel , Service support , Foot X-Ray 11/21/21 15:40 IMPRESSION: 1. No osteomyelitis or periostitis the left fourth metatarsal or left fourth toe. 2. No osteomyelitis or periostitis of the remaining osseous structures of the left foot. 3. No fractures or dislocations. 4. No osseous lytic, sclerotic or mass lesions. 5. Small Achilles and calcaneal spurs. 6. Normal soft tissues. No subcutaneous emphysema or radiopaque foreign bodies. Electronically Signed: Sammy Mueller MD at 17:02 EDT , Physical Exam Narrative Physical exam General: Alert, Oriented x3, Cooperative HEENT: Bilateral moderate hearing loss. Atraumatic, PERRLA, EOMI, Normocephalic Oral: No Gingival or Mucosal Lesions/ Ulcerations Neck: Supple, No JVD, Negative Carotid Bruits Lungs: Air entry diminished in bilateral lung bases. No crepitation/rhonchi Cardiovascular: Regular rate, Regular Rhythm, Normal S1, Normal S2, No murmurs Abdomen: Bowel Sounds Present, Soft, Non Tender, Non-Distended : Large scrotal swelling, right more than left. Can get over the scrotal sw elling. No obvious impulse on coughing or transmitted pulse. No suprapubic tenderness. Extremities: No edema, Capillary Refill Less than 3 Seconds Skin: Left fourth metatarsal head ulcer, about 2 cm, oval shape Covered with necrotic black color eschar with foul order with surrounding edema and erythema to the distal dorsal foot. Musculoskeletal: Status post right TMA. No Tenderness to Palpation of Joints or Extremities Neurological: Decreased sensation of left forefoot. Loss of position and vibration sensation. Cranial nerves II-XII grossly intact, DTR 2+/4 Psych/Mental Status: Normal Affect, Appropriate. Assessment & Plan Assessment/Plan (1) Osteomyelitis of ankle or foot, left, acute: (2) Non-pressure chronic ulcer of other part of left foot with necrosis of bone: PLAN: Plan This is a 81-year-old gentleman with history of diabetes mellitus type 2, complicated with diabetic neuropathy, previous right TMA admitted with left diabetic foot ulcer on plantar aspect for 2 to 3 months. 1. Left diabetic foot ulcer with high suspicion of acute osteomyelitis and surrounding cellulitis of left lower heel and distal leg. Wound photo reviewed. Patient is admitted under podiatry service. On IV vancomycin and meropenem. X-ray of the foot and MRI of foot ordered. ESR and CRP elevated. ID and wound nurse is consulted. 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 Patient does not have clinical features or organ dysfunction suggestive of sepsis therefore sepsis ruled out. 11/22: ID consult reviewed. MRI limited study not optimal. No evidence of osteomyelitis but significant findings could be missed. Lower extremity arterial study not done. Discussed with deputy administrator, plan for wound debridement tomorrow. MRSA nasal screen positive. 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 2. Moderate to severe lower extremity digital level peripheral arterial disease: Patient had arterial duplex study in August 2020 reported as left ANTONIETTA 0.99 by dorsalis artery with biphasic Doppler waveform noted on ankle. The righ t ANTONIETTA is 1.19. ANTONIETTA suggestive of moderate to severe distal small vessel arterial occlusive disease at the digital level on the left. Patient on baby aspirin continued. Repeat lower extremity arterial study ordered. 3. Coronary artery disease status post CABG: Last echo in August 2018 EF 60%, stage II diastolic dysfunction, mild MR PASP 44 mmHg, no vegetation. Overall suggestive of chronic HFpEF. Continue home medications. Last EKG in August 2018 reported as normal sinus rhythm with old inferior infarct at 83 bpm. Serum magnesium and phosphorus level are normal. Repeat EKG ordered 4. 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 His creatinine is on baseline about 1.8. Gradually worsening it was 1.6 in 12/2018, increased to 1.71 in April 2020. Last protein creatinine ratio is 873 high therefore CKD stage G3 B. Electrolytes in normal range. 11/22: Glucose was on lower side last night. Lantus dose decreased in the morning and at night with holding parameter. Monitor Accu-Cheks. 5. VT prophylaxis, high risk: Heparin 5000 units subcutaneous 3 times daily. 6. Other chronic comorbidities include bilateral scrotal swelling, right more than left, hearing loss: As per patient he had work-up for the scrotal swelling and is not cancer and it is same for many years since his early age. He is not much concerned with that. Recommended outpatient follow-up with PCP. Total time of the visit including total time spent in counseling or coordination of care, (more than 50% of the total time, spent in obtaining medical in formation from nurses and other ancillary care providers,explaining to the patient about labs, imaging, diagnosis and management of active complex medical conditions), discussion with admitting attending, review of labs and imaging is 50 minutes. Clinical Impression(s) from Imaging Studies Lower Extremity MRI 11/21/21 11:58 IMPRESSION: Extremely limited study. Significant findings could be missed. No evidence of osteomyelitis. Foot X-Ray 11/21/21 15:40 IMPRESSION: 1. No osteomyelitis or periostitis the left fourth metatarsal or left fourth toe. 2. No osteomyelitis or periostitis of the remaining osseous structures of the left foot. 3. No fractures or dislocations. 4. No osseous lytic, sclerotic or mass lesions. 5. Small Achilles and calcaneal spurs. 6. Normal soft tissues. No subcutaneous emphysema or radiopaque foreign bodies. Living will/advanced directive/end of life care: Patient does have living will or advanced directive. His present in the room is power of assistant district attorney for health. After discussion of benefits/risks procedures involved with full code, DNR CC arrest and DNR CC, the patient stated she does not want to be vegetable at the end of his life. He wants to peacefully. Patient doesn't want artificial life support including intubation, tube feed, ventilator and/chest compression, central venous catheter, vasopressor and DC shock if needed Total time spent in euiv-le-rmox encounter in discussion of advanced directive 16 minutes. Charges/Coding Visit Charges Inpatient E&M: 73626 Subs Hosp L2
--- NOTE | 2021-11-22 09:40 | PCM.PROGNOTE ---
Subjective Subjective 81M seen bedside resting comfortably. Denies constitutionals/pain. Denies chest pain/calf pain/shortness of breath. No other complaints. Objective Data Objective Data Vital Signs: Vital Signs Temp Pulse Resp BP Pulse Ox O2 Del Method 97.7 F L 61 18 117/59 L 94 Room Air 11/22/21 08:43 11/22/21 08:43 11/22/21 08:43 11/22/21 08:43 11/22/21 08:43 11/22/21 08:43 Oxygen Delivery Method Room Air Weight: 98.1 kg Body Mass Index (BMI) 30.8 Intake & Output: Intake and Output for Last 24 Hours 11/20/21 11/21/21 11/22/21 23:59 23:59 23:59 Intake Total 660 / 660 120 / 120 Balance 660 / 660 120 / 120 Lab / Micro Data Result Diagrams: 11/22/21 05:35 11/22/21 05:35 Labs: Laboratory Results - last 24 hr 11/21/21 11:00: S.aureus Protein A PCR NEGATIVE, MRSA (PCR) Negative 11/21/21 13:10: WBC 8.5, RBC 4.13 L, Hgb 12.1 L, Hct 35.9 L, MCV 86.9, MCH 29.3, MCHC 33.7, RDW Std Deviation 39.0, RDW Coeff of Kelsey 12.3, Plt Count 220, MPV 8.9, Immature Gran % (Auto) 0.200, Neut % (Auto) 68.6, Lymph % (Auto) 22.3, [place] % (Auto) 6.8, Eos % (Auto) 1.4, Baso % (Auto) 0.7, Absolute Neuts (auto) 5.9, Absolute Lymphs (auto) 1.90, Nucleated RBC % 0, ESR 73 H 11/21/21 13:10: Sodium 137, Potassium 4.5, Chloride 106, Carbon Dioxide 26.0, Anion Gap 5, BUN 28 H, Creatinine 1.83 H, Estim Creat Clear Calc 32.69, Est GFR (MDRD) Af Amer 46 L, Est GFR (MDRD) Non-Af 38 L, BUN/Creatinine Ratio 15.3, Glucose 186 H, Calcium 9.4, Magnesium 1.8, Total Bilirubin 0.50, AST 16, ALT 22, Alkaline Phosphatase 92, C-React Prot Ext Range 47.60 H, Total Protein 8.0, Albumin 3.1 L, Globulin 4.9 H, Albumin/Globulin Ratio 0.6 L 11/21/21 13:10: Phosphorus 2.5 11/21/21 16:24: POC Glucose 144 H 11/21/21 22:12: POC Glucose 88 11/22/21 05:35: WBC 6.6, RBC 3.87 L, Hgb 11.4 L, Hct 33.4 L, MCV 86.3, MCH 29.5, MCHC 34.1, RDW Std Deviation 38.6, RDW Coeff of Kelsey 12.3, Plt Count 200, MPV 9.2, Immature Gran % (Auto) 0.200, Neut % (Auto) 65.7, Lymph % (Auto) 21.2, [place] % (Auto) 9.1, Eos % (Auto) 2.7, Baso % (Auto) 1.1 H, Absolute Neuts (auto) 4.3, Absolute Lymphs (auto) 1.40, Nucleated RBC % 0 11/22/21 05:35: Sodium 140, Potassium 4.3, Chloride 108 H, Carbon Dioxide 27.0, Anion Gap 5, BUN 22 H, Creatinine 1.56 H, Estim Creat Clear Calc 38.35, Est GFR (MDRD) Af Amer 55 L, Est GFR (MDRD) Non-Af 46 L, BUN/Creatinine Ratio 14.1, Glucose 80, Calcium 8.9, TSH 1.79 11/22/21 06:04: POC Glucose 89 Micro: Microbiology 11/21/21 11:00 Wound - Left Foot Gram Stain - Final 11/21/21 11:00 Wound - Left Foot Wound Culture - Preliminary Mixed Gram Positive Organisms Radiography Diagnostic Testing: Radiology Impression Lower Extremity MRI 11/21/21 11:58 IMPRESSION: Extremely limited study. Significant findings could be missed. No evidence of osteomyelitis. Electronically Signed: Nohemi Wilson MD at 18:18 EDT Reading Location ID and State: [id number] / Tel , Service support , Foot X-Ray 11/21/21 15:40 IMPRESSION: 1. No osteomyelitis or periostitis the left fourth metatarsal or left fourth toe. 2. No osteomyelitis or periostitis of the remaining osseous structures of the left foot. 3. No fractures or dislocations. 4. No osseous lytic, sclerotic or mass lesions. 5. Small Achilles and calcaneal spurs. 6. Normal soft tissues. No subcutaneous emphysema or radiopaque foreign bodies. Electronically Signed: Sammy Mueller MD at 17:02 EDT , Physical Exam Narrative Physical exam General: Alert, Oriented x3, Cooperative HEENT: Bilateral moderate hearing loss. Atraumatic, PERRLA, EOMI, Normocephalic Oral: No Gingival or Mucosal Lesions/ Ulcerations Neck: Supple, No JVD, Negative Carotid Bruits Lungs: Air entry diminished in bilateral lung bases. No crepitation/rhonchi Cardiovascular: Regular rate, Regular Rhythm, Normal S1, Normal S2, No murmurs Abdomen: Bowel Sounds Present, Soft, Non Tender, Non-Distended : Large scrotal swelling, right more than left. Can get over the scrotal swelling. No obvious impulse on coughing or transmitted pulse. No suprapubic tenderness. Extremities: No edema, Capillary Refill Less than 3 Seconds Skin: Left fourth metatarsal head ulcer, about 2 cm, oval shape., Covered with necrotic black color eschar with foul order with surrounding edema and erythema to the distal dorsal foot. Musculoskeletal: Status post right TMA. No Tenderness to Palpation of Joints or Extremities Neurological: Decreased sensation of left forefoot. Loss of position and vibration sensation. Cranial nerves II-XII grossly intact, DTR 2+/4 Psych/Mental Status: Normal Affect, Appropriate. neurovascular status unchanged from previous visit. Wound to plantar left 4th metatarsal head remains malodorous/necrotic base with deep probing into 4th interspace, improving edema/erythema/warmth. No expressible purulence today. TMA on right side, no amputation on left. Hammertoes digits 2-5 noted. No pain w/ calf squeeze bilatearlly. Const alert, oriented x3 and no apparent distress Extremity Extremity Narrative: Left foot with necrotic tissue to sub 4th metatarsal head through to the subcutaneous tissue close to bone, there is loader demolder from the site, there is some edema to the left foot, there is some erythema to the distal dorsal foot - there is no visible abscess, no crepitus, no fluctuance, no blistering present. CFT < 3 seconds to the toes on the left foot. No streaking present to the left foot. No acute ischemia to the foot bilateral. No open lesions on the right foot. Peripheral neuropathy bilateral foot - this is chronic. There is TMA right foot. Assessment & Plan Assessment/Plan (1) Non-pressure chronic ulcer of other part of left foot with necrosis of bone: (2) Other specified peripheral vascular diseases: (3) Type 2 diabetes mellitus with foot ulcer: (4) Cellulitis of left lower limb: (5) Acute painful diabetic polyneuropathy: (6) Osteomyelitis of ankle or foot, left, acute: PLAN: Plan Patient was seen and evaluated. He will be admitted due to necrotic left foot infection in the setting of peripheral vascular disease and diabetes. He is at risk for limb loss. ID on board; patient receiving vanc/meropenem. MRI negative for osteo, possible abcess to 4th interspace, plan for surgical debridement Friday at 1pm, NPO after midnight. hold lovanox. Arterial studies pending, patient will likely need to follow up with vascular surgery pending results. Patient should remain non-weigthbearing to left foot with heel weightbearing in surgical shoe for transfer purposes. Will follow closely.
--- NOTE | 2021-11-22 09:47 | CON.PCM.ID_ITS ---
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 Now with necrotic L foot ulcer. Wound cx pending, on empiric vanc/ravi. MRI was poor quality study. Will follow, thank you HPI Consult Data Date of Consult: 11/22/21 HPI Narrative Reason for Consultation: foot infection HPI Narrative: PAULINA OSORIO, is a 81 M with DM neuropathy, prior R TMA, presented to hospital 11/21 with 2-3 months of progressive L plantar ulcer with pain, redness, swelling, and dark necrotic tissue. No fever or chills. No recent abx. Admitted by Dr. Oliver, MRI done, started on vanc/ravi. Full ROS performed and neg except as noted above. Some intermittent dizziness. Some dry cough. [facility], [facility] Medical History Atherosclerosis of coronary artery bypass graft of [place] heart Atherosclerosis of coronary artery of [place] heart without angina pectoris Bacteremia Bone fracture Cellulitis of right lower extremity Delayed wound healing Dizziness DM type 2, uncontrolled, with renal complications Essential hypertension Hearing problem Hyperlipidemia Hyperlipidemia associated with type 2 diabetes mellitus Malnutrition Osteomyelitis of foot, acute PAD (peripheral artery disease) Pneumonia Restless legs 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 Uncontrolled type 2 diabetes mellitus, with long-term current use of insulin Home Medications aspirin 81 mg tablet,delayed release (Adult Aspirin Regimen) 81 mg PO DAILY heart 05/29/17 [History Last Taken 11/21/21] coenzyme Q10 100 mg capsule (Co Q-10) 100 mg PO DAILY supplement 06/04/17 [History Last Taken 11/21/21] nlzbwqjb-bob-ylmzd acid 0.4 mg-lycopene 300 mcg-lutein 250 mcg tablet 1 tab PO DAILY supplement 08/21/18 [History Last Taken 11/21/21] calcium carb-vit S4-yqyuggdah-brah 333 mg-200 unit-133 mg-5 mg tablet 1 tab PO DAILY supplement 10/18/19 [History Last Taken 11/21/21] insulin glargine 100 unit/mL (3 mL) subcutaneous pen 25 unit subcut BID dm 10/18/19 [History Last Taken 11/21/21] omega-3 fatty acids 1,000 mg capsule (Fish Oil Concentrate) 1,000 mg PO BID 10/18/19 [History Last Taken Unknown] amiloride 5 mg tablet 5 mg PO BID heart #180 tabs 10/05/20 [Rx Last Taken 11/21/21] doxazosin 2 mg tablet 2 mg PO BID prostate #180 tabs 10/05/20 [Rx Last Taken 11/21/21] losartan 50 mg tablet 50 mg PO DAILY heart 08/10/21 [History Last Taken 11/02 03/24] insulin aspart U-100 100 unit/mL (3 mL) subcutaneous pen (Novolog Flexpen U-100 Insulin aspart) 5 unit subcut LUNCH dm 11/21/21 [History Last Taken Unknown] insulin aspart U-100 100 unit/mL (3 mL) subcutaneous pen (Novolog Flexpen U-100 Insulin aspart) 15 sliding scale dose subcut BREAKFAST DM 11/21/21 [History Last Taken 11/21/21] insulin aspart U-100 100 unit/mL (3 mL) subcutaneous pen (Novolog Flexpen U-100 Insulin aspart) 20 unit subcut DINNER dm 11/21/21 [History Last Taken Unknown] insulin lispro 100 unit/mL subcutaneous pen See Protocol SC ACHS dm 11/21/21 [History Last Taken 11/21/21] metoprolol succinate 25 mg tablet,extended release 24 hr 12.5 mg PO BID heart 11/21/21 [History Last Taken 11/21/21] Allergy/AdvReac Type Severity Reaction Status Date / Time glyburide Allergy Intermediate Unknown Verified 09/06/20 08:51 Iodinated Contrast Media Allergy Rash Verified 09/06/20 08:51 [CONTRASTS] amlodipine [From Norvasc] AdvReac Unknown Unknown Verified 09/06/20 08:51 atorvastatin [From Lipitor] AdvReac Unknown Unknown Verified 09/06/20 08:51 cerivastatin [From Baycol] AdvReac Unknown Unknown Verified 09/06/20 08:51 enalapril AdvReac Unknown Unknown Verified 09/06/20 08:51 exenatide [From Byetta] AdvReac Unknown Unknown Verified 09/06/20 08:51 ezetimibe [From Zetia] AdvReac Unknown Unknown Verified 09/06/20 08:51 fenofibrate [From Tricor] AdvReac Unknown Unknown Verified 09/06/20 08:51 gemfibrozil AdvReac Unknown Unknown Verified 09/06/20 08:51 glipizide [From Glucotrol] AdvReac Unknown Unknown Verified 09/06/20 08:51 labetalol AdvReac Unknown Unknown Verified 09/06/20 08:51 lovastatin [From Mevacor] AdvReac Unknown Unknown Verified 09/06/20 08:51 metformin [From Glucophage] AdvReac Unknown Unknown Verified 09/06/20 08:51 niacin AdvReac Unknown Unknown Verified 09/06/20 08:51 [From Niaspan Extended-Release] nifedipine [From Adalat] AdvReac Unknown Unknown Verified 09/06/20 08:51 quinapril [From Accupril] AdvReac Unknown Unknown Verified 09/06/20 08:51 repaglinide [From Prandin] AdvReac Unknown Unknown Verified 09/06/20 08:51 rosuvastatin [From Crestor] AdvReac Unknown Unknown Verified 09/06/20 08:51 simvastatin [From Zocor] AdvReac Unknown Unknown Verified 09/06/20 08:51 Family History Mother Diabetes Father , Age 56 Myocardial infarction Brother Diabetes Brother Diabetes Brother Multiple sclerosis Surgical History History of coronary artery bypass graft History of lung surgery 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 L foot wrapped, reviewed photos. Neuro CN's II-XII intact bilaterally Lab / Micro Data Attestation: I reviewed the patient's lab results. Result Diagrams: 11/22/21 05:35 11/22/21 05:35 Labs: Laboratory Results - last 24 hr 11/21/21 11:00: S.aureus Protein A PCR NEGATIVE, MRSA (PCR) Negative 11/21/21 13:10: WBC 8.5, RBC 4.13 L, Hgb 12.1 L, Hct 35.9 L, MCV 86.9, MCH 29.3, MCHC 33.7, RDW Std Deviation 39.0, RDW Coeff of Kelsey 12.3, Plt Count 220, MPV 8.9, Immature Gran % (Auto) 0.200, Neut % (Auto) 68.6, Lymph % (Auto) 22.3, [place] % (Auto) 6.8, Eos % (Auto) 1.4, Baso % (Auto) 0.7, Absolute Neuts (auto) 5.9, Absolute Lymphs (auto) 1.90, Nucleated RBC % 0, ESR 73 H 11/21/21 13:10: Sodium 137, Potassium 4.5, Chloride 106, Carbon Dioxide 26.0, Anion Gap 5, BUN 28 H, Creatinine 1.83 H, Estim Creat Clear Calc 32.69, Est GFR (MDRD) Af Amer 46 L, Est GFR (MDRD) Non-Af 38 L, BUN/Creatinine Ratio 15.3, Glucose 186 H, Calcium 9.4, Magnesium 1.8, Total Bilirubin 0.50, AST 16, ALT 22, Alkaline Phosphatase 92, C-React Prot Ext Range 47.60 H, Total Protein 8.0, Albumin 3.1 L, Globulin 4.9 H, Albumin/Globulin Ratio 0.6 L 11/21/21 13:10: Phosphorus 2.5 11/21/21 16:24: POC Glucose 144 H 11/21/21 22:12: POC Glucose 88 11/22/21 05:35: WBC 6.6, RBC 3.87 L, Hgb 11.4 L, Hct 33.4 L, MCV 86.3, MCH 29.5, MCHC 34.1, RDW Std Deviation 38.6, RDW Coeff of Kelsey 12.3, Plt Count 200, MPV 9.2, Immature Gran % (Auto) 0.200, Neut % (Auto) 65.7, Lymph % (Auto) 21.2, [place] % (Auto) 9.1, Eos % (Auto) 2.7, Baso % (Auto) 1.1 H, Absolute Neuts (auto) 4.3, Absolute Lymphs (auto) 1.40, Nucleated RBC % 0 11/22/21 05:35: Sodium 140, Potassium 4.3, Chloride 108 H, Carbon Dioxide 27.0, Anion Gap 5, BUN 22 H, Creatinine 1.56 H, Estim Creat Clear Calc 38.35, Est GFR (MDRD) Af Amer 55 L, Est GFR (MDRD) Non-Af 46 L, BUN/Creatinine Ratio 14.1, Glucose 80, Calcium 8.9, TSH 1.79 11/22/21 06:04: POC Glucose 89 Micro: Microbiology 11/21/21 11:00 Wound - Left Foot Gram Stain - Final 11/21/21 11:00 Wound - Left Foot Wound Culture - Preliminary Mixed Gram Positive Organisms Radiology Impression Lower Extremity MRI 11/21/21 11:58 IMPRESSION: Extremely limited study. Significant findings could be missed. No evidence of osteomyelitis. Electronically Signed: Nohemi Wilson MD at 18:18 EDT Reading Location ID and State: [id number] / Tel , Service support , Foot X-Ray 11/21/21 15:40 IMPRESSION: 1. No osteomyelitis or periostitis the left fourth metatarsal or left fourth toe. 2. No osteomyelitis or periostitis of the remaining osseous structures of the left foot. 3. No fractures or dislocations. 4. No osseous lytic, sclerotic or mass lesions. 5. Small Achilles and calcaneal spurs. 6. Normal soft tissues. No subcutaneous emphysema or radiopaque foreign bodies. Electronically Signed: Sammy Muleler MD at 17:02 EDT ,
--- NOTE | 2021-11-22 10:25 | CASEMGMT ---
TIFFANY ARREOLA Assessment: Face to Face with pt for initial transition planning/care coordination assessment. TIFFANY ARREOLA introduced self and role at [facility], pt voices understanding and consents to assessment. Pt is A/O x4 and answers all questions appropriately at this time. Pt lying in bed wanting to go home. Care providers, pharmacy, and demographics verified/updated. Admitting Dx: L foot infection, necrotic ulcer DM PCP:Charleen Specialists:Jabier, vascular OR; Benito, pod; Flavio, cardio; Kareem nephro Preferred Pharmacy: [facility] Insurance: [employer] [facility] Prescription Benefit: yes LW/HPOA: Pt has LW/DPOA on file at [facility]. His DPOA is Kassandra Ba. LNOK: Kassandra Ba, Living Arrangements: Pt lives with in a two story house with 3 steps to enter with a rail. Pt reports he is I in ADL's and denies concerns at home. Transportation: Pt drives self and denies concerns with transportation. DME/HHC/SNF: Pt has an electric scooter, tub bench and a walker but does not use any AD. Pt has a BGM and checks his blood sugars twice daily. He states he has supplies for his BGM and also has insulin and needles. Pt has had HHC in the past but does not use the name of the agency. Pt has been to [facility] and [facility]. Pt states no concerns with going home at time of dc. Pt wants to dc JABARI. Pt states he has everything he needs at home. Discussed the possibility of IV atb and this was too much for the patient to take in at this time. Pt states no further concerns/needs. CM to follow. Advised pt to ask CM if any further question/concerns/needs arise, voices understanding. Pt Goal: Home Plan: TBD, pt to go to OR tomorrow and ID following.
[2021-11-22] MEDS: Insulin Glargine-YFGN 100 UNIT/ML Pen 15 UNIT SC (11:00)
[2021-11-22] MEDS: Doxazosin 1 MG Tablet 2 MG PO ×2 (11:06→21:22)
[2021-11-22] MEDS: Losartan Potassium 50 MG Tablet PO (11:07)
[2021-11-22] MEDS: Enoxaparin 40 MG/0.4 ML Syringe SC (11:10)
[2021-11-22] MEDS: Metoprolol(XL)Succ 25 MG Tablet 12.5 MG PO ×2 (11:20→21:21)
[2021-11-22 11:55] LABS: Bedside Glucose 136 mg/dL (74-106)
[2021-11-22] MEDS: Insulin Lispro 100 UNIT/ML INSULN.PEN SC ×2 (13:30→17:13)
[2021-11-22] MEDS: 0.9% Saline Lock 10 ML Syringe IV ×2 (13:32→15:42)
[2021-11-22 16:45] LABS: Bedside Glucose 163 mg/dL (74-106)
[2021-11-22] MEDS: Insulin Lispro 100 UNIT/ML INSULN.PEN 10 UNIT SC (17:11)
[2021-11-22] MEDS: Juven (unflavored) Packet 1 PACKET PO (17:14)
[2021-11-22 17:24] LABS: Hemoglobin A1c 6.5 % (3.8-5.6)
[2021-11-22] MEDS: Insulin Glargine-YFGN 100 UNIT/ML Pen 10 UNIT SC (21:22)
[2021-11-22 21:50] LABS: Bedside Glucose 98 mg/dL (74-106)
[2021-11-23] VITALS (16 sets, daily range): BP systolic 129–160; BP diastolic 54–70; PULSE 50–61; RESP 15–18; TEMP 36.3–37; O2SAT 94–98; BMI 31.4
[2021-11-23] MEDS: Lactated Ringers 1,000 ML 15 ML IV (05:30)
[2021-11-23 06:46] LABS: Bedside Glucose 127 mg/dL (74-106)
[2021-11-23 07:00] LABS: Bedside Glucose 107 mg/dL (74-106)
--- NOTE | 2021-11-23 07:04 | WOUNDNOTE ---
Pt is currently off unit for surgery.
--- NOTE | 2021-11-23 07:27 | PCM.PN.HOSP ---
Subjective Subjective Follow-up for diabetic foot infection and abscess of foot Patient went for OR for wound debridement. Denies pain at the operative site. No fever. Objective Data Objective Data Vital Signs: Vital Signs Temp Pulse Resp BP Pulse Ox O2 Del Method 98.0 F 60 16 152/64 H 94 Room Air 11/23/21 05:40 11/23/21 05:40 11/23/21 05:40 11/23/21 05:40 11/23/21 05:40 11/23/21 05:40 Oxygen Delivery Method Room Air Weight: 218 lb 11.177 oz Body Mass Index (BMI) 31.4 Intake & Output: Intake and Output for Last 24 Hours 11/21/21 11/22/21 11/23/21 23:59 23:59 23:59 Intake Total 660 / 660 2051.75 / 2051.75 185 / 185 Balance 660 / 660 2051.75 / 2050.75 185 / 185 Lab / Micro Data Result Diagrams: 11/22/21 05:35 11/23/21 10:22 Labs: Laboratory Results - last 24 hr 11/22/21 05:35: Hemoglobin A1c 6.5 H 11/22/21 11:05: POC Glucose 136 H 11/22/21 16:16: POC Glucose 163 H 11/22/21 21:12: POC Glucose 98 11/23/21 05:31: POC Glucose 127 H 11/23/21 06:43: POC Glucose 107 H Micro: Microbiology 11/21/21 14:20 Blood Culture (Wb) - Anticubital Right Blood Culture - Preliminary No growth in 48 hours. 11/21/21 13:10 Blood Culture (Wb) - Anticubital Left Blood Culture - Preliminary No growth in 48 hours. 11/21/21 11:00 Wound - Left Foot Gram Stain - Final 11/21/21 11:00 Wound - Left Foot Wound Culture - Preliminary Mixed Gram Positive Organisms Radiography Diagnostic Testing: Radiology Impression Extremity Arterial Study 11/21/21 11:58 Interpretation Summary Right ANTONIETTA 1.18, normal. Doppler/PVR waveforms of the right leg normal at rest. Left ANTONIETTA 1.0, normal. Doppler/PVR waveforms of the left leg normal at rest. Physical Exam Narrative Physical exam General: Alert, Oriented x3, Cooperative HEENT: Bilateral moderate hearing loss. Atraumatic, PERRLA, EOMI, Normocephalic Oral: No Gingival or Mucosal Lesions/ Ulcerations Neck: Supple, No JVD, Negative Carotid Bruits Lungs: Air entry diminished in bilateral lung bases. No crepitation/rhonchi Cardiovascular: Regular rate, Regular Rhythm, Normal S1, Normal S2, No murmurs Abdomen: Bowel Sounds Present, Soft, Non Tender, Non-Distended : Large scrotal swelling, right more than left. Can get over the scrotal swelling. No obvious impulse on coughing or transmitted pulse. No suprapubic tenderness. Extremities: No edema, Capillary Refill Less than 3 Seconds Skin: Left fourth metatarsal head ulcer, about 2 cm, oval shape status post debridement. Status post I AND D of abscess down to muscle level left foot. Dressing is dry Musculoskeletal: Status post right TMA. No Tenderness to Palpation of Joints or Extremities Neurological: Decreased sensation of left forefoot. Loss of position and vibration sensation. Cranial nerves II-XII grossly intact, DTR 2+/4 Psych/Mental Status: Normal Affect, Appropriate. Assessment & Plan Assessment/Plan (1) Osteomyelitis of ankle or foot, left, acute: (2) Non-pressure chronic ulcer of other part of left foot with necrosis of bone: PLAN: Plan This is a 81-year-old gentleman with history of diabetes mellitus type 2, complicated with diabetic neuropathy, previous right TMA admitted with left diabetic foot ulcer on plantar aspect for 2 to 3 months. 1. Left diabetic foot ulcer with high suspicion of acute osteomyelitis and surrounding cellulitis of left lower heel and distal leg. Wound photo reviewed. Patient is admitted under podiatry service. On IV vancomycin and meropenem. X-ray of the foot and MRI of foot ordered. ESR and CRP elevated. ID and wound nurse is consulted. 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 Patient does not have clinical features or organ dysfunction suggestive of sepsis therefore sepsis ruled out. 11/22: ID consult reviewed. MRI limited study not optimal. No evidence of osteomyelitis but significant findings could be missed. Lower extremity arterial study not done. Discussed with design technology professor, plan for wound debridement tomorrow. MRSA nasal screen positive. 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 11/23: Patient had incision and drainage of abscess down to including level of muscle of left foot. 2. Moderate to severe lower extremity digital level peripheral arterial disease: Patient had arterial duplex study in August 2020 reported as left ANTONIETTA 0.99 by dorsalis artery with biphasic Doppler waveform noted on ankle. The right ANTONIETTA is 1.19. ANTONIETTA suggestive of moderate to severe distal small vessel arterial occlusive disease at the digital level on the left. Patient on baby aspirin continued. Repeat lower extremity arterial study ordered. 11/23: Arterial study this admission right ANTONIETTA 1.18, left ANTONIETTA 1.0 normal. Doppler/PVR waveform of right leg and left leg normal at rest. 3. Coronary artery disease status post CABG: Last echo in August 2018 EF 60%, stage II diastolic dysfunction, mild MR PASP 44 mmHg, no vegetation. Overall suggestive of chronic HFpEF. Continue home medications. Last EKG in August 2018 reported as normal sinus rhythm with old inferior infarct at 83 bpm. Serum magnesium and phosphorus level are normal. Repeat EKG ordered 4. 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 His creatinine is on baseline about 1.8. Gradually worsening it was 1.6 in 12/2018, increased to 1.71 in April 2020. Last protein creatinine ratio is 873 high therefore CKD stage G3 B. Electrolytes in normal range. 11/22: Glucose was on lower side last night. Lantus dose decreased in the morning and at night with holding parameter. Monitor Accu-Cheks. 11/23: A1c 6.5%. Glucose at night 98 and in the morning 107 mg percent therefore discontinue Lantus insulin at night. Continue the morning dose only. 5. VT prophylaxis, high risk: Heparin 5000 units subcutaneous 3 times daily. 6. Other chronic comorbidities include bilateral scrotal swelling, right more than left, hearing loss: As per patient he had work-up for the scrotal swelling and is not cancer and it is same for many years since his early age. He is not much concerned with that. Recommended outpatient follow-up with PCP. Total time of the visit including total time spent in counseling or coordination of care, (more than 50% of the total time, spent in obtaining medical information from nurses and other ancillary care providers,explaining to the patient about labs, imaging, diagnosis and management of active complex medical conditions), discussion with admitting attending, review of labs and imaging is 50 minutes. Clinical Impression(s) from Imaging Studies Extremity Arterial Study 11/21/21 11:58 Interpretation Summary Right ANTONIETTA 1.18, normal. Doppler/PVR waveforms of the right leg normal at rest. Left ANTONIETTA 1.0, normal. Doppler/PVR waveforms of the left leg normal at rest. Lower Extremity MRI 11/21/21 11:58 IMPRESSION: Extremely limited study. Significant findings could be missed. No evidence of osteomyelitis. Electronically Signed: Nohemi Wilson MD at 18:18 EDT Reading Location ID and State: [id number] / Tel , Service support , Foot X-Ray 11/21/21 15:40 IMPRESSION: 1. No osteomyelitis or periostitis the left fourth metatarsal or left fourth toe. 2. No osteomyelitis or periostitis of the remaining osseous structures of the left foot. 3. No fractures or dislocations. 4. No osseous lytic, sclerotic or mass lesions. 5. Small Achilles and calcaneal spurs. 6. Normal soft tissues. No subcutaneous emphysema or radiopaque foreign bodies. Microbiology Past 72 Hours 11/21/21 14:20 Blood Culture (Wb) - Anticubital Right Blood Culture - Preliminary No growth in 48 hours. 11/21/21 13:10 Blood Culture (Wb) - Anticubital Left Blood Culture - Preliminary No growth in 48 hours. 11/21/21 11:00 Wound - Left Foot Gram Stain - Final 11/21/21 11:00 Wound - Left Foot Wound Culture - Preliminary Mixed Gram Positive Organisms Laboratory Results 11/22/21 05:35: Hemoglobin A1c 6.5 H 11/22/21 11:05: POC Glucose 136 H 11/22/21 16:16: POC Glucose 163 H 11/22/21 21:12: POC Glucose 98 11/23/21 05:31: POC Glucose 127 H 11/23/21 06:43: POC Glucose 107 H Clinical Impression(s) from Imaging Studies Lower Extremity MRI 11/21/21 11:58 IMPRESSION: Extremely limited study. Significant findings could be missed. No evidence of osteomyelitis. Foot X-Ray 11/21/21 15:40 IMPRESSION: 1. No osteomyelitis or periostitis the left fourth metatarsal or left fourth toe. 2. No osteomyelitis or periostitis of the remaining osseous structures of the left foot. 3. No fractures or dislocations. 4. No osseous lytic, sclerotic or mass lesions. 5. Small Achilles and calcaneal spurs. 6. Normal soft tissues. No subcutaneous emphysema or radiopaque foreign bodies. Living will/advanced directive/end of life care: Patient does have living will or advanced directive. His present in the room is power of securities attorney for health. After discussion of benefits/risks procedures involved with full code, DNR CC arrest and DNR CC, the patient stated she does not want to be vegetable at the end of his life. He wants to peacefully. Patient doesn't want artificial life support including intubation, tube feed, ventilator and/chest compression, central venous catheter, vasopressor and DC shock if needed Total time spent in [id number] encounter in discussion of advanced directive 16 minutes. Charges/Coding Visit Charges Inpatient E&M: 72046 Subs Hosp L2
--- NOTE | 2021-11-23 08:28 | OP.PCM_ITS ---
Problems Associated Problem List Diagnoses (1) Non-pressure chronic ulcer of other part of left foot with necrosis of muscle: (2) Peripheral vascular disease, unspecified: (3) Type 2 diabetes mellitus with diabetic polyneuropathy: (4) Diabetic foot infection: Report of Operation Date of Procedure: 11/23/21 Pre-Operative Diagnosis: Left Foot Diabetic Infection Deep Abscess down to left of muscle, left foot Post-Operative Diagnosis: Same Surgery/Procedure Performed:: Incision and drainage of abscess down to including level of muscle left foot Description of Surgical Findings:: Surgically there is necrotic tissue to the base of the left fourth metatarsal head plantarly this extended deep into the fourth interspace and extending to the dorsal foot which a deep interspace abscess was decompressed approximately 5 cc of seropurulent drainage noted. Postdebridement wound demonstrated some mild bleeding to the skin edges and remaining tissue edges. The flexor tendon at the plantar aspect of the fourth metatarsal head was exposed with the bone was noted to be intact and not violated at this time. Remaining tissue postdebridement appeared to be healthy. Surgeon: Dayne Rush oil well service operator: None (zulema echevarria dpm [id number]) Type of Anesthesia: Local and MAC/Supplemental Specimen's removed: Previous lavage left foot wound cultures post lavage left foot wound cultures left foot tissue culture Drains: No drain Estimated Blood Loss (mL): Less than Description of Procedure: Patient was seen in the clinic by Dr. Oliver on 11/21/2021 he developed a diabetic foot infection after he feels he stepped on something while working in the garden 4 weeks prior. He went to peel off the skin and noticed some necrotic tissue to the area with significant malodor. Patient denies any fever chills nausea vomiting chest pain Shortness of breath or any other significant signs of systemic illness. MRI confirmed abscess to the deep interspace of the fourth with no involvement of underlying bone. Infectious disease was consulted on board patient is receiving IV vancomycin and meropenem initial cultures show mixed gram-positive species. Decision was made for surgical debridement of the necrotic tissue to the plantar fourth metatarsal head wound and decompression of the interspace abscess. Patient was brought back to the operating placed comfortably in supine position on the operating room table. Patient due to under MAC anesthesia. Patient position all osseous prominences offloaded prevent any compression neuropraxia well-padded left ankle tourniquet was applied this was not used throughout the case. A local block was performed at the level of the fourth metatarsal using 10 cc of quarter percent Marcaine plain. Left lower extremity scrubbed prepped draped using typical aseptic manner. Once cleared by anesthesia procedure was initiated by circumscribing being the necrotic wound to the fourth metatarsal phalangeal head plantarly excising this down to the level of flexor tendon this tissue was sent to microbiology for tissue culture. This time a Spangle was used to probe into the fourth interspace and a deep interspace abscess was decompressed from the site draining 5 cc of cereal. Seropurulent drainage from the site. Some residual wound debridement was performed using rongeurs removing any nonviable or necrotic tissue. All healthy bleeding tissue was left intact. Postdebridement no residual signs of infection were noted. Swab cultures were taken prelavage of the left foot wound. Left foot wound was pulse lavaged with copious amounts of normal sterile saline. Post lavage swab cultures taken of left foot wound. Left foot was cleaned dried and dressed with Betadine wet-to-dry 4 x 4's Kerlix and a light Jalil compression dressing. Patient tolerated procedure well and anesthesia in apparent satisfactory condition. Patient will be transferred back to floor we will continue receiving IV antibiotics. We will await final antibiotic recommendations per infectious disease and plan to discharge the patient pending this. We will have physical therapy see the patient and see if he is safe to go home or if he requires nursing home facility as he will likely need prolonged nonweightbearing until his wound heals. We will consult vascular and have him see the patient to see if any vascular intervention would be necessary, but the patient's ABIs on the left were 1 with respect to dorsalis pedis 0.81 with respect to posterior tibial artery. No complications Findings: Surgically there is necrotic tissue to the base of the left fourth metatarsal head plantarly this extended deep into the fourth interspace and extending to the dorsal foot which a deep interspace abscess was decompressed approximately 5 cc of seropurulent drainage noted. Postdebridement wound demonstrated some mild bleeding to the skin edges and remaining tissue edges. The flexor tendon at the plantar aspect of the fourth metatarsal head was exposed with the bone was noted to be intact and not violated at this time. Remaining tissue postdebridement appeared to be healthy. Specimens: Pre and post lavage swab cultures left foot tissue culture Admit VTE Documentation VTE Present on Admission: Yes VTE Mechan Device Prophylaxis: SCD's VTE Pharm Prophylaxis ordered?: Yes
[2021-11-23 09:31] LABS: Bedside Glucose 111 mg/dL (74-106)
[2021-11-23] MEDS: Juven (unflavored) Packet 1 PACKET PO ×2 (10:16→17:32)
[2021-11-23] MEDS: Multivitamins,Ther W-Minerals Tablet 1 TABLET PO (10:16)
[2021-11-23] MEDS: Insulin Glargine-YFGN 100 UNIT/ML Pen 15 UNIT SC (10:17)
[2021-11-23] MEDS: Aspirin E.C. 81 MG Tablet PO (10:27)
[2021-11-23 10:51] LABS: Bedside Glucose 132 mg/dL (74-106)
[2021-11-23] MEDS: Losartan Potassium 50 MG Tablet PO (10:54)
[2021-11-23 11:17] LABS: Anion Gap 5 (5-15); BUN 26 mg/dL (7-18); BUN/Creat Ratio 17.8 RATIO (10-20); Chloride 107 mmol/L (98-107); Creatinine, Serum 1.46 mg/dL (0.70-1.30); EST Glomerular Filtration Rate 49 mL/min (>60); Est Glom Filt Rate - Afr Amer 60 mL/min (>60); Estimated Creatinine Clearance 40.97 ml/min; Glucose 130 mg/dL (74-106); Potassium 4.2 mmol/L (3.5-5.1); Sodium Level 138 mmol/L (136-145)
--- NOTE | 2021-11-23 12:11 | PCM.PN.ID ---
Physical Exam Narrative Now s/p I&D of foot abscess this AM. No fever. 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 Now with necrotic L foot ulcer abd abscess. Wound cx with GNR x3, Gram pos x4, on empiric vanc/ravi. MRI was poor quality study. No bone involvement seen in OR for I&D abscess this AM 11/[address] Rush. With good source control now and no sign bone involvement, plan will be for discharge on short course po abx. Will follow
[2021-11-23] MEDS: Insulin Lispro 100 UNIT/ML INSULN.PEN SC ×2 (12:37→16:07)
[2021-11-23] MEDS: Doxazosin 1 MG Tablet 2 MG PO ×2 (12:38→21:47)
--- NOTE | 2021-11-23 13:08 | WOUNDNOTE ---
wound photo: left plantar foot
--- NOTE | 2021-11-23 13:31 | CASEMGMT ---
Social Work Referral received from Wound Nurse that physican feels pt will benefit from SNF due to NWB status and wound vac. SW met with pt and pt and introduced self and role of SW. SW spoke with pt regarding recommendation for SNF placement and although unhappy with option, pt is agreeable to short term SNF. A list of SNF providers including quality and resource use data and consistent with the patient?s preferred geographic region, medical needs, and insurance network were provided from the [facility] Guide. Pt preferred provider is [facility]. [facility]. [facility]. JAZMÍN explained that precert will need to be obtained prior to discharge. Juana d/leland bilingual teacher assistant, notified and will make referral to [facility]. Plan: [facility], pending acceptance and precert LUCAS Joiner
--- NOTE | 2021-11-23 13:46 | CASEMGMT ---
Discharge Window Assembler Juana nichole/[place] office support assistant sent referral to Tiny at the [facility] via [facility]. Will follow up. Plan: [facility], Waiting Acceptance Juana Maldonado Discharge Window Assembler
--- NOTE | 2021-11-23 15:13 | CASEMGMT ---
Discharge Fork Lift Mechanic [facility] reached out. Patient has been accepted and pre-cert has been started. Plan: [facility], waiting pre-cert. Juana Maldnoado Discharge Fork Lift Mechanic
--- NOTE | 2021-11-23 15:49 | CASEMGMT ---
Social Work Pt has been accepted at the [facility] and precert has been started. Pt updated and agreeable to discharge plan. Plan: [facility], pending precert LUCAS Joiner
[2021-11-23 16:21] LABS: Vancomycin, Trough Level 15.4 ug/mL (5.0-15.0)
[2021-11-23 16:36] LABS: Bedside Glucose 152 mg/dL (74-106)
--- NOTE | 2021-11-23 17:09 | PCM.RX.CS ---
Consult Pharmacy has been consulted to manage selected antiobiotic: Vancomycin Type of Consult: Follow-up Labs: Sodium 138 mmol/L (136-145) 11/23/21 10:22 Potassium 4.2 mmol/L (3.5-5.1) 11/23/21 10:22 Chloride 107 mmol/L (98-107) 11/23/21 10:22 Carbon Dioxide 26.0 mmol/L (21.0-32.0) 11/23/21 10:22 Anion Gap 5 (5-15) 11/23/21 10:22 BUN 26 mg/dL (7-18) H 11/23/21 10:22 Creatinine 1.46 mg/dL (0.70-1.30) H 11/23/21 10:22 Est GFR (MDRD) Af Amer 60 mL/min (>60) 11/23/21 10:22 Est GFR (MDRD) Non-Af 49 mL/min (>60) L 11/23/21 10:22 BUN/Creatinine Ratio 17.8 RATIO (10-20) 11/23/21 10:22 Glucose 130 mg/dL (74-106) H 11/23/21 10:22 Vancomycin Trough 15.4 ug/mL (5.0-15.0) H 11/23/21 15:27 Microbiology: Microbiology 11/23/21 08:40 Tissue - Left Foot Gram Stain - Final 11/23/21 08:40 Tissue - Left Foot Gram Stain - Final 11/23/21 08:40 Tissue - Left Foot Gram Stain - Final 11/21/21 11:00 Wound - Left Foot Gram Stain - Final 11/21/21 11:00 Wound - Left Foot Wound Culture - Preliminary Gram negative robbin GNR lactose burglary investigator GNR lactose burglary investigator#2 GPC Poss Enterococcus sp Gram Positive Cocci Gram Positive Cocci#2 Gram positive robbin 11/21/21 14:20 Blood Culture (Wb) - Anticubital Right Blood Culture - Preliminary No growth in 48 hours. 11/21/21 13:10 Blood Culture (Wb) - Anticubital Left Blood Culture - Preliminary No growth in 48 hours. Goal Trough: 15-20 mcg/mL Pharmacy Plan for Drug Dosing: VANCOMYCIN LEVEL RECEIVED Current Vancomycin Dose: 1500mg q24h (1600) Number of Doses Received: 2 Vancomycin Level: 15.4 Hours Since Last Dose: 24 Renal Function: 1.46 Renal Function Trend: SrCr stable Lab/Micro: Vancomycin Plan/Comments: ordered goal trough is 15-20. resulted trough of 15.4 is within ordered goal trough. Recommend continuing current dose of 1500mg q24h and checking trough in 3 more doses. Pending Level: 11/26/21 at 1530 Pharmacy Service will continue to monitor and adjust dosing as required. Follow-Up Labs: Trough Vancomycin - 11/26/21 at 1530
[2021-11-23] MEDS: Insulin Lispro 100 UNIT/ML INSULN.PEN 10 UNIT SC (18:09)
[2021-11-23] MEDS: Metoprolol(XL)Succ 25 MG Tablet 12.5 MG PO (21:49)
[2021-11-23 22:36] LABS: Bedside Glucose 93 mg/dL (74-106)
[2021-11-24 03:30] VITALS: BP 133/49; PULSE 61; RESP 16; TEMP 37.2; O2SAT 94
[2021-11-24 06:06] LABS: Absolute Lymphocyte Count 1.77 X10^3/uL (0.83-4.51); Absolute Neutrophil Count 4.6 X10^3/uL (2.0-7.7); Basophil# 0.04 X10^3/uL; Basophil% 0.6 % (0-1); Eosinophil# 0.15 X10^3/uL; Eosinophils% 2.1 % (0-5); Hematocrit 32.6 % (40-54); Lymphocyte # 1.77 X10^3/ul (0.83-4.51); Lymphocyte % 24.4 % (19-41); Mean Corp Hgb Conc 33.7 g/dL (32-36); Mean Corpuscular Hgb 29.1 pg (27.0-32.0); Mean Corpuscular Volume 86.2 fL (80-94); Mean Platelet Vol. 9.5 fl (6.2-12.0); Monocyte% 9.6 % (0-10); NRBC Flagged by Analyzer 0 % (0-5); Neutrophil # 4.59 X10^3/uL (2.7-7.7); Neutrophil % 63.2 % (47-70); Platelet Count 198 K/mm3 (150-450); Red Blood Count 3.78 M/mm3 (4.6-6.2); White Blood Count 7.3 K/mm3 (4.4-11.0)
[2021-11-24 06:35] LABS: Anion Gap 7 (5-15); BUN 31 mg/dL (7-18); BUN/Creat Ratio 22.3 RATIO (10-20); Calcium,Total 8.7 mg/dL (8.5-10.1); Chloride 106 mmol/L (98-107); Creatinine, Serum 1.39 mg/dL (0.70-1.30); EST Glomerular Filtration Rate 52 mL/min (>60); Est Glom Filt Rate - Afr Amer 63 mL/min (>60); Estimated Creatinine Clearance 43.04 ml/min; Glucose 121 mg/dL (74-106); Potassium 4.1 mmol/L (3.5-5.1); Sodium Level 137 mmol/L (136-145)
[2021-11-24 09:15] VITALS: BP 108/58; PULSE 69; RESP 16; TEMP 36.5; O2SAT 95
--- NOTE | 2021-11-24 10:11 | PN_ITS ---
Subjective Subjective 81-year-old male recovering well status post left foot incision and drainage of diabetic foot infection. Patient denies constitutional symptoms. Patient denies pain at current. Patient has no other complaints.Patient voiding past gas. Objective Data Objective Data Vital Signs: Vital Signs Temp Pulse Resp BP Pulse Ox O2 Del Method 98.9 F 61 16 133/49 H 94 Room Air 11/24/21 03:30 11/24/21 03:30 11/24/21 03:30 11/24/21 03:30 11/24/21 03:30 11/24/21 03:30 Oxygen Delivery Method Room Air Weight: 99.4 kg Body Mass Index (BMI) 31.4 Intake & Output: Intake and Output for Last 24 Hours 11/22/21 11/23/21 11/24/21 23:59 23:59 23:59 Intake Total 1.75 / 205.75 1898.25 / 2348.25 650 / 650 Output Total 200 / 200 Balance 2050.75 / 2050.75 1898.25 / 2348.25 450 / 450 Lab / Micro Data Result Diagrams: 11/24/21 05:15 11/24/21 05:15 Labs: Laboratory Results - last 24 hr 11/23/21 10:20: POC Glucose 132 H 11/23/21 10:22: Sodium 138, Potassium 4.2, Chloride 107, Carbon Dioxide 26.0, Anion Gap 5, BUN 26 H, Creatinine 1.46 H, Estim Creat Clear Calc 40.97, Est GFR (MDRD) Af Amer 60, Est GFR (MDRD) Non-Af 49 L, BUN/Creatinine Ratio 17.8, Glucose 130 H, Calcium 9.0 11/23/21 15:27: Vancomycin Trough 15.4 H 11/23/21 16:05: POC Glucose 152 H 11/23/21 21:44: POC Glucose 93 11/24/21 05:15: WBC 7.3, RBC 3.78 L, Hgb 11.0 L, Hct 32.6 L, MCV 86.2, MCH 29.1, MCHC 33.7, RDW Std Deviation 38.0, RDW Coeff of Kelsey 12.0, Plt Count 198, MPV 9.5, Immature Gran % (Auto) 0.100, Neut % (Auto) 63.2, Lymph % (Auto) 24.4, Rabun % (Auto) 9.6, Eos % (Auto) 2.1, Baso % (Auto) 0.6, Absolute Neuts (auto) 4.6, Absolute Lymphs (auto) 1.77, Nucleated RBC % 0 11/24/21 05:15: Sodium 137, Potassium 4.1, Chloride 106, Carbon Dioxide 24.0, Anion Gap 7, BUN 31 H, Creatinine 1.39 H, Estim Creat Clear Calc 43.04, Est GFR (MDRD) Af Amer 63, Est GFR (MDRD) Non-Af 52 L, BUN/Creatinine Ratio 22.3 H, Glucose 121 H, Calcium 8.7 Micro: Microbiology 11/21/21 11:00 Wound - Left Foot Gram Stain - Final 11/21/21 11:00 Wound - Left Foot Wound Culture - Preliminary Providencia alcalifaciens Klebsiella oxytoca Escherichia coli Enterococcus faecalis Enterococcus avium Gram Positive Cocci#2 Gram positive robbin 11/23/21 08:40 Tissue - Left Foot Gram Stain - Final 11/23/21 08:40 Tissue - Left Foot Gram Stain - Final 11/23/21 08:40 Tissue - Left Foot Gram Stain - Final 11/21/21 14:20 Blood Culture (Wb) - Anticubital Right Blood Culture - Preliminary No growth in 48 hours. 11/21/21 13:10 Blood Culture (Wb) - Anticubital Left Blood Culture - Preli minary No growth in 48 hours. Physical Exam Narrative neurovascular status unchanged from previous visit. Wound VAC left intact to plantar left foot. TMA on right side, no amputation on left. Hammertoes digits 2-5 noted. No pain w/ calf squeeze bilatearlly. Const alert, oriented x3 and no apparent distress Extremity Extremity Narrative: Left foot with necrotic tissue to sub 4th metatarsal head through to the subcutaneous tissue close to bone, there is abrasive wheel molder from the site, there is some edema to the left foot, there is some erythema to the distal dorsal foot - there is no visible abscess, no crepitus, no fluctuance, no blistering present. CFT < 3 seconds to the toes on the left foot. No streaking present to the left foot. No acute ischemia to the foot bilateral. No open lesions on the right foot. Peripheral neuropathy bilateral foot - this is chronic. There is TMA right foot. Assessment & Plan Assessment/Plan (1) Non-pressure chronic ulcer of other part of left foot with necrosis of muscle: (2) Peripheral vascular disease, unspecified: (3) Type 2 diabetes mellitus with diabetic polyneuropathy: (4) Diabetic foot infection: PLAN: Plan Patient was seen and evaluated. Left foot wound was debrided abscess was drained from the fourth interspace all nonviable tissue was removed remaining tissue yielded healthy bleeding. Arterial studies 1.0 to dorsalis pedis and 0.81 to posterior tibial artery on the left lower extremity. These pulses were noted to be biphasic. This was improved from previous arterial study. We will have patient follow-up with vascular surgery on an outpatient basis. On 11/23/2021 a wound VAC was applied Next dressing change will be on 11/26/2021. Patient will require significant assistance with wound healing postoperatively, recommend recovery in a SNF to assist maintaining nonweightbearing status with occasional heel weightbearing to left lower extremity in a surgical shoe assisted by a walker for transfer purposes only. In great detail patient's neuropathic status was discussed. Patient notes that he frequently walks outside without shoe gear and feels that this is how the wound started. Patient notes that [place] and frequently cuts the grass which takes him 7 hours to do on a riding lawnmower. Patient has significant ambulatory demands when at home, per discussion with patient not confident that he would comply with a restrictive weightbearing status if discharged home. It was discussed with patient in great detail that if he ambulates on his left foot wound this will delay healing and possibly result in an additional infection which may lead to worsening of his wound, amputation of his foot, leg or even loss of life if he were to develop a severe life- threatening infection. 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 Patient demonstrated a lack of understanding as to how weightbearing may impair the healing process. As noted previously it was discussed in great detail the patient has significant neuropathy and has a wound that would cause significant pain in a healthy individual which would preclude any excessive ambulation. Continued ambulation on this wound with lead to additional tissue trauma leading to worsening and increased size of the wound as well as depth and possible recurrent infection. Patient seemed to understand better after this di nadegeion. Will continue to follow on a daily basis.
[2021-11-24] MEDS: 0.9% Saline Lock 10 ML Syringe IV (10:33)
[2021-11-24] MEDS: Multivitamins,Ther W-Minerals Tablet 1 TABLET PO (10:34)
[2021-11-24] MEDS: Aspirin E.C. 81 MG Tablet PO (10:34)
[2021-11-24] MEDS: Insulin Glargine-YFGN 100 UNIT/ML Pen 15 UNIT SC (10:34)
[2021-11-24] MEDS: Enoxaparin 40 MG/0.4 ML Syringe SC (10:34)
[2021-11-24] MEDS: Juven (unflavored) Packet 1 PACKET PO ×2 (10:35→17:07)
[2021-11-24 10:46] LABS: Bedside Glucose 134 mg/dL (74-106)
[2021-11-24 13:07] VITALS: BP 143/74; PULSE 63
[2021-11-24] MEDS: Metoprolol(XL)Succ 25 MG Tablet 12.5 MG PO (13:07)
[2021-11-24] MEDS: Insulin Lispro 100 UNIT/ML INSULN.PEN SC ×3 (13:10→21:26)
--- NOTE | 2021-11-24 13:12 | PN.HOSP_ITS ---
Subjective Subjective Follow-up for diabetes mellitus type 2 diabetic foot ulcer. Patient blood sugar is better controlled. Patient blood pressure drops from supine to sitting posture. It was 133/49 to systolic 140s but dropped to 108/58 on sitting up. Sometimes patient gets dizzy when suddenly stands up. Objective Data Objective Data Vital Signs: Vital Signs Temp Pulse Resp BP Pulse Ox O2 Del Method 97.7 F L 69 16 108/58 L 95 Room Air 11/24/21 09:15 11/24/21 09:15 11/24/21 09:15 11/24/21 09:15 11/24/21 09:15 11/24/21 09:15 Oxygen Delivery Method Room Air Weight: 219 lb 2.232 oz Body Mass Index (BMI) 31.4 Intake & Output: Intake and Output for Last 24 Hours 11/22/21 11/23/21 11/24/21 23:59 23:59 23:59 Intake Total 2051.75 / 2051.75 1898.25 / 2348.25 841.5 / 841.5 Output Total 200 / 200 Balance 2051.75 / 2051.75 1898.25 / 2348.25 641.5 / 641.5 Lab / Micro Data Result Diagrams: 11/24/21 05:15 11/24/21 05:15 Labs: Laboratory Results - last 24 hr 11/23/21 15:27: Vancomycin Trough 15.4 H 11/23/21 16:05: POC Glucose 152 H 11/23/21 21:44: POC Glucose 93 11/24/21 05:15: WBC 7.3, RBC 3.78 L, Hgb 11.0 L, Hct 32.6 L, MCV 86.2, MCH 29.1, MCHC 33.7, RDW Std Deviation 38.0, RDW Coeff of Kelsey 12.0, Plt Count 198, MPV 9.5, Immature Gran % (Auto) 0.100, Neut % (Auto) 63.2, Lymph % (Auto) 24.4, [place] % (Auto) 9.6, Eos % (Auto) 2.1, Baso % (Auto) 0.6, Absolute Neuts (auto) 4.6, Absolute Lymphs (auto) 1.77, Nucleated RBC % 0 11/24/21 05:15: Sodium 137, Potassium 4.1, Chloride 106, Carbon Dioxide 24.0, Anion Gap 7, BUN 31 H, Creatinine 1.39 H, Estim Creat Clear Calc 43.04, Est GFR (MDRD) Af Amer 63, Est GFR (MDRD) Non-Af 52 L, BUN/Creatinine Ratio 22.3 H, Glucose 121 H, Calcium 8.7 11/24/21 09:36: POC Glucose 134 H Micro: Microbiology 11/23/21 08:40 Tissue - Left Foot Gram Stain - Final 11/23/21 08:40 Tissue - Left Foot Wound Culture - Preliminary Gram positive organism 11/23/21 08:40 Tissue - Left Foot Gram Stain - Final 11/23/21 08:40 Tissue - Left Foot Wound Culture - Preliminary Gram positive organism 11/23/21 08:40 Tissue - Left Foot Gram Stain - Final 11/23/21 08:40 Tissue - Left Foot Wound Culture - Preliminary Mixed Gram Positive Organisms 11/21/21 11:00 Wound - Left Foot Gram Stain - Final 11/21/21 11:00 Wound - Left Foot Wound Culture - Preliminary Providencia alcalifaciens Klebsiella oxytoca Escherichia coli Enterococcus faecalis Enterococcus avium Gram Positive Cocci#2 Gram positive robbin 11/21/21 14:20 Blood Culture (Wb) - Anticubital Right Blood Culture - Preliminary No growth in 48 hours. 11/21/21 13:10 Blood Culture (Wb) - Anticubital Left Blood Culture - Preliminary No growth in 48 hours. Physical Exam Narrative Physical exam General: Alert, Oriented x3, Cooperative HEENT: Bilateral moderate hearing loss. Atraumatic, PERRLA, EOMI, Normocephalic Oral: No Gingival or Mucosal Lesions/ Ulcerations Neck: Supple, No JVD, Negative Carotid Bruits Lungs: Air entry diminished in bilateral lung bases. No crepitation/rhonchi Cardiovascular: Regular rate, Regular Rhythm, Normal S1, Normal S2, No murmurs Abdomen: Bowel Sounds Present, Soft, Non Tender, Non-Distended : Large scrotal swelling, right more than left. No obvious impulse on coughing or transmitted pulse. No suprapubic tenderness. Extremities: No edema, Capillary Refill Less than 3 Seconds Skin: Left fourth metatarsal head ulcer, about 2 cm, oval shape status post debridement. Status post I AND D of abscess down to muscle level left foot. Dressing is dry Musculoskeletal: Status post right TMA. No Tenderness to Palpation of Joints or Extremities Neurological: Decreased sensation of left forefoot. Loss of position and vibration sensation. Cranial nerves II-XII grossly intact, DTR 2+/4 Psych/Mental Status: Normal Affect, Appropriate. Assessment & Plan Assessment/Plan (1) Osteomyelitis of ankle or foot, left, acute: (2) Non-pressure chronic ulcer of other part of left foot with necrosis of bone: PLAN: Plan This is a 81-year-old gentleman with history of diabetes mellitus type 2, complicated with diabetic neuropathy, previous right TMA admitted with left diabetic foot ulcer on plantar aspect for 2 to 3 months. 1. Left diabetic foot ulcer with high suspicion of acute osteomyelitis and surrounding cellulitis of left lower heel and distal leg. Wound photo reviewed. Patient is admitted under podiatry service. On IV vancomycin and meropenem. X-ray of the foot and MRI of foot ordered. ESR and CRP elevated. ID and wound nurse is consulted. 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 Patient does not have clinical features or organ dysfunction suggestive of sepsis therefore sepsis ruled out. 11/22: ID consult reviewed. MRI limited study not optimal. No evidence of osteomyelitis but significant findings could be missed. Lower extremity arterial study not done. Discussed with purchasing manager/sales, plan for wound debridement tomorrow. MRSA nasal screen positive. 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 11/23: Patient had incision and drainage of abscess down to including level of muscle of left foot. 11/24: Wound culture preliminary from ER showing multiple organisms [place] [facility], Klebsiella, E. coli, Enterococcus faecalis; vancomycin sensitive, E nterococcus AVM gram-positive cocci and gram-positive rods. Preliminary gram stain from operative foot culture gram-positive organism 1+. Discussed with the purchasing manager/sales. Plan for discharge to SNF preferably on Friday. 2. Moderate to severe lower extremity digital level peripheral arterial disease : Patient had arterial duplex study in August 2020 reported as left ANTONIETTA 0.99 by dorsalis artery with biphasic Doppler waveform noted on ankle. The right ANTONIETTA is 1.19. ANTONIETTA suggestive of moderate to severe distal small vessel arterial occlusive disease at the digital level on the left. Patient on baby aspirin continued. Repeat lower extremity arterial study ordered. 11/23: Arterial study this admission right ANTONIETTA 1.18, left ANTONIETTA 1.0 normal. Doppler/PVR waveform of right leg and left leg normal at rest. 3. Coronary artery disease status post CABG and hypertension: Last echo in August 2018 EF 60%, stage II diastolic dysfunction, mild MR PASP 44 mmHg, no vegetation. Overall suggestive of chronic HFpEF. Continue home medications. Last EKG in August 2018 reported as normal sinus rhythm with old inferior infarct at 83 bpm. Serum magnesium and phosphorus level are normal. Repeat EKG ordered 11/24: Patient has orthostatic drop in blood pressure but not below systolic 100 mmHg. Hold Cozaar with systolic blood pressure less than 130 mmHg. Discussed with nursing staff to increase time interval of 2 hours between Cardura and Toprol 4. 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 His creatinine is on baseline about 1.8. Gradually worsening it was 1.6 in 12/2018, increased to 1.71 in April 2020. Last protein creatinine ratio is 873 high therefore CKD stage G3 B. Electrolytes in normal range. 11/22: Glucose was on lower side last night. Lantus dose decreased in the morning and at night with holding parameter. Monitor Accu-Cheks. 11/23: A1c 6.5%. Glucose at night 98 and in the morning 107 mg percent therefore discontinue Lantus insulin at night. Continue the morning dose only. 11/24: Glucose is better controlled between 100-150 mg/dL. 5. VT prophylaxis, high risk: Heparin 5000 units subcutaneous 3 times daily. 6. Other chronic comorbidities include bilateral scrotal swelling, right more than left, hearing loss: As per patient he had work-up for the scrotal swelling and is not cancer and it is same for many years since his early age. He is not much concerned with that. Recommended outpatient follow-up with PCP. Total time of the visit including total time spent in counseling or coordination of care, (more than 50% of the total time, spent in obtaining medical information from nurses and other ancillary care providers,explaining to the patient about labs, imaging, diagnosis and management of active complex medical conditions), discussion with admitting attending, review of labs and imaging is 50 minutes. Living will/advanced directive/end of life care: Patient does have living will or advanced directive. His present in the room is power of criminal attorney for health. After discussion of benefits/risks procedures involved with full code, DNR CC arrest and DNR CC, the patient stated she does not want to be vegetable at the end of his life. He wants to peacefully. Patient doesn't want artificial life support including intubation, tube feed, ventilator and/chest compression, central venous catheter, vasopressor and DC shock if needed Total time spent in [id number] encounter in discussion of advanced directive 16 minutes. Microbiology Past 72 Hours 11/23/21 08:40 Tissue - Left Foot Gram Stain - Final 11/23/21 08:40 Tissue - Left Foot Wound Culture - Preliminary Gram positive organism 11/23/21 08:40 Tissue - Left Foot Gram Stain - Final 11/23/21 08:40 Tissue - Left Foot Wound Culture - Preliminary Gram positive organism 11/23/21 08:40 Tissue - Left Foot Gram Stain - Final 11/23/21 08:40 Tissue - Left Foot Wound Culture - Preliminary Mixed Gram Positive Organisms 11/21/21 11:00 Wound - Left Foot Gram Stain - Final 11/21/21 11:00 Wound - Left Foot Wound Culture - Preliminary Providencia alcalifaciens Klebsiella oxytoca Escherichia coli Enterococcus faecalis Enterococcus avium Gram Positive Cocci#2 Gram positive robbin 11/21/21 14:20 Blood Culture (Wb) - Anticubital Right Blood Culture - Preliminary No growth in 48 hours. 11/21/21 13:10 Blood Culture (Wb) - Anticubital Left Blood Culture - Preliminary No growth in 48 hours. Clinical Impression(s) from Imaging Studies Extremity Arterial Study 11/21/21 11:58 Interpretation Summary Right ANTONIETTA 1.18, normal. Doppler/PVR waveforms of the right leg normal at rest. Left ANTONIETTA 1.0, normal. Doppler/PVR waveforms of the left leg normal at rest. Lower Extremity MRI 11/21/21 11:58 IMPRESSION: Extremely limited study. Significant findings could be missed. No evidence of osteomyelitis. Electronically Signed: Nohemi Wilson MD at 18:18 EDT Reading Location ID and State: [id number] / Tel , Service support , Foot X-Ray 11/21/21 15:40 IMPRESSION: 1. No osteomyelitis or periostitis the left fourth metatarsal or left fourth toe. 2. No osteomyelitis or periostitis of the remaining osseous structures of the left foot. 3. No fractures or dislocations. 4. No osseous lytic, sclerotic or mass lesions. 5. Small Achilles and calcaneal spurs. 6. Normal soft tissues. No subcutaneous emphysema or radiopaque foreign bodies. Charges/Coding Visit Charges Inpatient E&M: 19195 Subs Hosp L2
[2021-11-24 13:26] LABS: Bedside Glucose 165 mg/dL (74-106)
[2021-11-24 16:45] VITALS: BP 147/67; PULSE 52; RESP 18; TEMP 36.7; O2SAT 96
[2021-11-24 17:21] LABS: Bedside Glucose 144 mg/dL (74-106)
[2021-11-24] MEDS: Insulin Lispro 100 UNIT/ML INSULN.PEN 8 UNIT SC (18:06)
[2021-11-24 21:20] VITALS: BP 165/64; PULSE 54; RESP 18; TEMP 37; O2SAT 97
[2021-11-24 21:28] VITALS: PULSE 54
[2021-11-24] MEDS: Doxazosin 1 MG Tablet 2 MG PO (21:28)
[2021-11-24 22:05] LABS: Bedside Glucose 198 mg/dL (74-106)
[2021-11-25] VITALS (8 sets, daily range): BP systolic 128–168; BP diastolic 57–75; PULSE 52–91; RESP 16–18; TEMP 36.4–36.8; O2SAT 95–97
[2021-11-25 05:51] LABS: Absolute Lymphocyte Count 1.61 X10^3/uL (0.83-4.51); Absolute Neutrophil Count 3.6 X10^3/uL (2.0-7.7); Basophil# 0.06 X10^3/uL; Eosinophil# 0.16 X10^3/uL; Eosinophils% 2.6 % (0-5); Hematocrit 31.7 % (40-54); Hemoglobin 10.9 g/dL (13.0-16.5); Lymphocyte # 1.61 X10^3/ul (0.83-4.51); Lymphocyte % 26.6 % (19-41); Mean Corp Hgb Conc 34.4 g/dL (32-36); Mean Corpuscular Hgb 29.2 pg (27.0-32.0); Mean Platelet Vol. 9.1 fl (6.2-12.0); Monocyte% 9.9 % (0-10); NRBC Flagged by Analyzer 0 % (0-5); Neutrophil # 3.62 X10^3/uL (2.7-7.7); Neutrophil % 59.7 % (47-70); Platelet Count 194 K/mm3 (150-450); RBC Distribution Width CV 11.9 % (11.6-14.6); RBC Distribution Width SD 36.6 fl (35.1-43.9); Red Blood Count 3.73 M/mm3 (4.6-6.2); White Blood Count 6.1 K/mm3 (4.4-11.0)
[2021-11-25 06:11] LABS: Bedside Glucose 138 mg/dL (74-106)
[2021-11-25 06:28] LABS: Anion Gap 7 (5-15); BUN 35 mg/dL (7-18); BUN/Creat Ratio 28.5 RATIO (10-20); Calcium,Total 8.8 mg/dL (8.5-10.1); Chloride 107 mmol/L (98-107); Creatinine, Serum 1.23 mg/dL (0.70-1.30); EST Glomerular Filtration Rate 60 mL/min (>60); Est Glom Filt Rate - Afr Amer 73 mL/min (>60); Estimated Creatinine Clearance 48.63 ml/min; Glucose 142 mg/dL (74-106); Potassium 3.8 mmol/L (3.5-5.1); Sodium Level 140 mmol/L (136-145)
[2021-11-25] MEDS: Multivitamins,Ther W-Minerals Tablet 1 TABLET PO (08:13)
[2021-11-25] MEDS: Aspirin E.C. 81 MG Tablet PO (08:13)
[2021-11-25] MEDS: Metoprolol(XL)Succ 25 MG Tablet 12.5 MG PO ×2 (08:13→22:30)
[2021-11-25] MEDS: Juven (unflavored) Packet 1 PACKET PO ×2 (08:14→17:50)
[2021-11-25] MEDS: Insulin Glargine-YFGN 100 UNIT/ML Pen 15 UNIT SC (08:14)
[2021-11-25] MEDS: Enoxaparin 40 MG/0.4 ML Syringe SC (08:14)
[2021-11-25 08:31] LABS: Bedside Glucose 148 mg/dL (74-106)
[2021-11-25] MEDS: Doxazosin 1 MG Tablet 2 MG PO ×2 (10:05→22:32)
[2021-11-25] MEDS: 0.9% Saline Lock 10 ML Syringe IV ×2 (10:08→17:53)
--- NOTE | 2021-11-25 10:16 | PN_ITS ---
Subjective Subjective Patient seen day 2 postop. Denies constitutional. Denies pain. Patient voiding urine and passing gas. No bowel movement yet. No other complaints. Objective Data Objective Data Vital Signs: Vital Signs Temp Pulse Resp BP Pulse Ox O2 Del Method 98.3 F 65 18 155/69 H 95 Room Air 11/25/21 04:15 11/25/21 08:13 11/25/21 04:15 11/25/21 04:15 11/25/21 04:15 11/25/21 04:15 Oxygen Delivery Method Room Air Weight: 100.3 kg Body Mass Index (BMI) 31.4 Intake & Output: Intake and Output for Last 24 Hours 11/23/21 11/24/21 11/25/21 23:59 23:59 23:59 Intake Total 1898.25 / 2348.25 1970.0 / 1970.0 Output Total 800 / 800 Balance 1898.25 / 2348.25 1170.0 / 1170.0 Lab / Micro Data Result Diagrams: 11/25/21 05:20 11/25/21 05:20 Labs: Laboratory Results - last 24 hr 11/24/21 09:36: POC Glucose 134 H 11/24/21 13:07: POC Glucose 165 H 11/24/21 16:49: POC Glucose 144 H 11/24/21 21:25: POC Glucose 198 H 11/25/21 04:25: POC Glucose 138 H 11/25/21 05:20: WBC 6.1, RBC 3.73 L, Hgb 10.9 L, Hct 31.7 L, MCV 85.0, MCH 29.2, MCHC 34.4, RDW Std Deviation 36.6, RDW Coeff of Kelsey 11.9, Plt Count 194, MPV 9.1, Immature Gran % (Auto) 0.200, Neut % (Auto) 59.7, Lymph % (Auto) 26.6, [place] % (Auto) 9.9, Eos % (Auto) 2.6, Baso % (Auto) 1.0, Absolute Neuts (auto) 3.6, Absolute Lymphs (auto) 1.61, Nucleated RBC % 0 11/25/21 05:20: Sodium 140, Potassium 3.8, Chloride 107, Carbon Dioxide 26.0, Anion Gap 7, BUN 35 H, Creatinine 1.23, Estim Creat Clear Calc 48.63, Est GFR (MDRD) Af Amer 73, Est GFR (MDRD) Non-Af 60, BUN/Creatinine Ratio 28.5 H, Gluc ose 142 H, Calcium 8.8 11/25/21 08:10: POC Glucose 148 H Micro: Microbiology 11/23/21 08:40 Tissue - Left Foot Gram Stain - Final 11/23/21 08:40 Tissue - Left Foot Wound Culture - Preliminary Mixed Gram Positive Organisms 11/21/21 11:00 Wound - Left Foot Gram Stain - Final 11/21/21 11:00 Wound - Left Foot Wound Culture - Final Providencia alcalifaciens Klebsiella oxytoca Escherichia coli Enterococcus faecalis Enterococcus avium Streptococcus mitis/ oralis Corynebacterium jeikeium 11/23/21 08:40 Tissue - Left Foot Gram Stain - Final 11/23/21 08:40 Tissue - Left Foot Wound Culture - Preliminary Gram positive organism 11/23/21 08:40 Tissue - Left Foot Gram Stain - Final 11/23/21 08:40 Tissue - Left Foot Wound Culture - Preliminary Mixed Gram Positive Organisms 11/21/21 14:20 Blood Culture (Wb) - Anticubital Right Blood Culture - Preliminary No growth in 48 hours. 11/21/21 13:10 Blood Culture (Wb) - Anticubital Left Blood Culture - Preliminary No growth in 48 hours. Physical Exam Narrative neurovascular status unchanged from previous visit. Wound VAC left intact to plantar left foot. TMA on right side, no amputation on left. Hammertoes digits 2-5 noted. No pain w/ calf squeeze bilatearlly. Const alert, oriented x3 and no apparent distress Extremity Extremity Narrative: Left foot with necrotic tissue to sub 4th metatarsal head through to the subcutaneous tissue close to bone, there is molder sweep from the site, there is some edema to the left foot, there is some erythema to the distal dorsal foot - there is no visible abscess, no crepitus, no fluctuance, no blistering present. CFT < 3 seconds to the toes on the left foot. No streaking present to the left foot. No acute ischemia to the foot bilateral. No open lesions on the right foot. Peripheral neuropathy bilateral foot - this is chronic. There is TMA right foot. Assessment & Plan Assessment/Plan (1) Non-pressure chronic ulcer of other part of left foot with necrosis of muscle: (2) Peripheral vascular disease, unspecified: (3) Type 2 diabetes mellitus with diabetic polyneuropathy: (4) Diabetic foot infection: PLAN: Plan Patient was seen and evaluated. Left foot wound was debrided abscess was drained from the fourth interspace all nonviable tissue was removed remaining tissue yielded healthy bleeding. This was on 11/23/2021. Arterial studies 1.0 to dorsalis pedis and 0.81 to posterior tibial artery on the left lower extremity. These pulses were noted to be biphasic. This was improved from previous arterial study. We will have patient follow-up with vascular surgery on an outpatient basis. Initial cultures grew [place] acalifaciens, Klebsiella oxytocin, E. coli, Enterococcus faecalis, Enterococcus AVM, Streptococcus mitis, corynebacterium jeikeium. Intraoperative cultures from 11/23/2021 demonstrated mixed gram-positive organisms. Patient receiving IV vancomycin and meropenem. Will await final antibiotic recs per infectious disease. On 11/23/2021 a wound VAC was applied Next dressing change will be on 11/26/2021. Patient will require significant assistance with wound healing postoperatively, recommend recovery in a SNF to assist maintaining nonweightbearing status with occasional heel weightbearing to left lower extremity in a surgical shoe assisted by a walker for transfer purposes only. Patient agreeable to SNF. Will plan to discharge to SNF on 11/26/2021. Patient will require n onweightbearing to his left lower extremity with occasional heel weightbearing for transfer purposes only. Patient will receive every 3-day dressing changes for his wound VAC to the left lower extremity. Patient will likely be discharged on p.o. antibiotics per infectious disease discretion. We will continue to follow patient daily.
[2021-11-25] MEDS: Insulin Lispro 100 UNIT/ML INSULN.PEN SC ×4 (12:15→22:37)
[2021-11-25] MEDS: Docusate Sodium 100 MG Capsule PO ×2 (12:20→22:30)
[2021-11-25] MEDS: Losartan Potassium 50 MG Tablet PO (12:20)
--- NOTE | 2021-11-25 12:21 | PN.HOSP_ITS ---
Subjective Subjective Follow-up for left diabetic foot infection. No fever. Objective Data Objective Data Vital Signs: Vital Signs Temp Pulse Resp BP Pulse Ox O2 Del Method 97.6 F L 58 L 18 162/75 H 97 Room Air 11/25/21 08:10 11/25/21 10:00 11/25/21 08:10 11/25/21 10:00 11/25/21 08:10 11/25/21 08:10 Oxygen Delivery Method Room Air Weight: 221 lb 1.978 oz Body Mass Index (BMI) 31.4 Intake & Output: Intake and Output for Last 24 Hours 11/23/21 11/24/21 11/25/21 23:59 23:59 23:59 Intake Total 1898.25 / 2348.25 1970.0 / 1970.0 Output Total 800 / 800 Balance 1898.25 / 234.25 1170.0 / 1170.0 Lab / Micro Data Result Diagrams: 11/25/21 05:20 11/25/21 05:20 Labs: Laboratory Results - last 24 hr 11/24/21 13:07: POC Glucose 165 H 11/24/21 16:49: POC Glucose 144 H 11/24/21 21:25: POC Glucose 198 H 11/25/21 04:25: POC Glucose 138 H 11/25/21 05:20: WBC 6.1, RBC 3.73 L, Hgb 10.9 L, Hct 31.7 L, MCV 85.0, MCH 29.2, MCHC 34.4, RDW Std Deviation 36.6, RDW Coeff of Kelsey 11.9, Plt Count 194, MPV 9.1, Immature Gran % (Auto) 0.200, Neut % (Auto) 59.7, Lymph % (Auto) 26.6, [place] % (Auto) 9.9, Eos % (Auto) 2.6, Baso % (Auto) 1.0, Absolute Neuts (auto) 3.6, Absolute Lymphs (auto) 1.61, Nucleated RBC % 0 11/25/21 05:20: Sodium 140, Potassium 3.8, Chloride 107, Carbon Dioxide 26.0, Anion Gap 7, BUN 35 H, Creatinine 1.23, Estim Creat Clear Calc 48.63, Est GFR (MDRD) Af Amer 73, Est GFR (MDRD) Non-Af 60, BUN/Creatinine Ratio 28.5 H, Glucose 142 H, Calcium 8.8 11/25/21 08:10: POC Glucose 148 H Micro: Microbiology 11/23/21 08:40 Tissue - Left Foot Gram Stain - Final 11/23/21 08:40 Tissue - Left Foot Wound Culture - Preliminary Mixed Gram Positive Organisms 11/21/21 11:00 Wound - Left Foot Gram Stain - Final 11/21/21 11:00 Wound - Left Foot Wound Culture - Final Providencia alcalifaciens Klebsiella oxytoca Escherichia coli Enterococcus faecalis Enterococcus avium Streptococcus mitis/ oralis Corynebacterium jeikeium 11/23/21 08:40 Tissue - Left Foot Gram Stain - Final 11/23/21 08:40 Tissue - Left Foot Wound Culture - Preliminary Gram positive organism 11/23/21 08:40 Tissue - Left Foot Gram Stain - Final 11/23/21 08:40 Tissue - Left Foot Wound Culture - Preliminary Mixed Gram Positive Organisms 11/21/21 14:20 Blood Culture (Wb) - Anticubital Right Blood Culture - Preliminary No growth in 48 hours. 11/21/21 13:10 Blood Culture (Wb) - Anticubital Left Blood Culture - Preliminary No growth in 48 hours. Physical Exam Narrative Physical exam General: Alert, Oriented x3, Cooperative HEENT: Bilateral moderate hearing loss. Atraumatic, PERRLA, EOMI, Normocephalic Oral: No Gingival or Mucosal Lesions/ Ulcerations Neck: Supple, No JVD, Negative Carotid Bruits Lungs: Air entry diminished in bilateral lung bases. No crepitation/rhonchi Cardiovascular: Regular rate, Regular Rhythm, Normal S1, Normal S2, No murmurs Abdomen: Bowel Sounds Present, Soft, Non Tender, Non-Distended : Large scrotal swelling, right more than left. No obvious impulse on coughing or transmitted pulse. No suprapubic tenderness. Extremities: No edema, Capillary Refill Less than 3 Seconds Skin: Left fourth metatarsal head ulcer, about 2 cm, oval shape status post debridement. Status post operative incision and drainage of abscess down to muscle level left foot. Dressing is dry Musculoskeletal: Status post right TMA. No Tenderness to Palpation of Joints or Extremities Neurological: Decreased sensation of left forefoot. Loss of position and vibration sensation. Cranial nerves II-XII grossly intact, DTR 2+/4 Psych/Mental Status: Normal Affect, Appropriate. Assessment & Plan Assessment/Plan (1) Osteomyelitis of ankle or foot, left, acute: (2) Non-pressure chronic ulcer of other part of left foot with necrosis of bone: PLAN: Plan This is a 81-year-old gentleman with history of diabetes mellitus type 2, complicated with diabetic neuropathy, previous right TMA admitted with left diabetic foot ulcer on plantar aspect for 2 to 3 months. 1. Left diabetic foot ulcer with high suspicion of acute osteomyelitis and surrounding cellulitis of left lower heel and distal leg. Wound photo reviewed. Patient is admitted under podiatry service. On IV vancomycin and meropenem. X-ray of the foot and MRI of foot ordered. ESR and CRP elevated. ID and wound nurse is consulted. 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 Patient does not have clinical features or organ dysfunction suggestive of sepsis therefore sepsis ruled out. 11/22: ID consult reviewed. MRI limited study not optimal. No evidence of osteomyelitis but significant findings could be missed. Lower extremity arterial study not done. Discussed with partnership marketing manager, plan for wound debridement tomorrow. MRSA nasal screen positive. 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 11/23: Patient had incision and drainage of abscess down to including level of muscle of left foot. 11/24: Wound culture preliminary from ER showing multiple organisms [facility], Klebsiella, E. coli, Enterococcus faecalis; vancomycin sensitive, Enterococcus AVM gram-positive cocci and gram-positive rods. Preliminary gram stain from operative foot culture gram-positive organism 1+. Discussed with the partnership marketing manager. Plan for discharge to SNF preferably on Friday. 08/25: Operative culture from 11/23 shows no organism on gram stain, 3+ gram- positive organism. Continue antibiotic.Recommend ID follow-up on Friday for discharge antibiotics. Will need short course of oral antibiotic. 2. Moderate to severe lower extremity digital level peripheral arterial disease: Patient had arterial duplex study in August 2020 reported as left ANTONIETTA 0.99 by dorsalis artery with biphasic Doppler waveform noted on ankle. The right ANTONIETTA is 1.19. ANTONIETTA suggestive of moderate to severe distal small vessel arterial occlusive disease at the digital level on the left. Patient on baby aspirin continued. Repeat lower extremity arterial study ordered. 11/23: Arterial study this admission right ANTONIETTA 1.18, left ANTONIETTA 1.0 normal. Doppler/PVR waveform of right leg and left leg normal at rest. 3. Coronary artery disease status post CABG and hypertension: Last echo in August 2018 EF 60%, stage II diastolic dysfunction, mild MR PASP 44 mmHg, no vegetation. Overall suggestive of chronic HFpEF. Continue home medications. Last EKG in August 2018 reported as normal sinus rhythm with old inferior infarct at 83 bpm. Serum magnesium and phosphorus level are normal. Repeat EKG ordered 11/24: Patient has orthostatic drop in blood pressure but not below systolic 100 mmHg. Hold Cozaar with systolic blood pressure less than [address] [facility] nursing staff to increase time interval of 2 hours between Cardura and Latoyarol 4. 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 His creatinine is on baseline about 1.8. Gradually worsening it was 1.6 in 12/2018, increased to 1.71 in April 2020. Last protein creatinine ratio is 873 high therefore CKD stage G3 B. Electrolytes in normal range. 11/22: Glucose was on lower side last night. Lantus dose decreased in the morning and at night with holding parameter. Monitor Accu-Cheks. 11/23: A1c 6.5%. Glucose at night 98 and in the morning 107 mg percent therefore discontinue Lantus insulin at night. Continue the morning dose only. 11/24: Glucose is better controlled between 100-150 mg/dL. 11/25 glucose is controlled. Glucose 142 in BMP. 5. VT prophylaxis, high risk: Heparin 5000 units subcutaneous 3 times daily. 6. Other chronic comorbidities include bilateral scrotal swelling, right more than left, hearing loss: As per patient he had work-up for the scrotal swelling and is not cancer and it is same for many years since his early age. He is not much concerned with that. Recommended outpatient follow-up with PCP. Discharge plan: To be discharged by the podiatry service to SNF. Total time of the visit including total time spent in counseling or coordination of care, (more than 50% of the total time, spent in obtaining medical information from nurses and other ancillary care providers,explaining to the patient about labs, imaging, diagnosis and management of active complex medical conditions), discussion with admitting attending, review of labs and imaging is 25 minutes Living will/advanced directive/end of life care: Patient does have living will or advanced directive. His present in the room is power of county attorney for health. After discussion of benefits/risks procedures involved with full code, DNR CC arrest and DNR CC, the patient stated she does not want to be vegetable at the end of his life. He wants to peacefully. Patient doesn't want artificial life support including intubation, tube feed, ventilator and/chest compression, central venous catheter, vasopressor and DC shock if needed Total time spent in [id number]-am-[id number] encounter in discussion of advanced directive 16 minutes. Microbiology Past 72 Hours 11/23/21 08:40 Tissue - Left Foot Gram Stain - Final 11/23/21 08:40 Tissue - Left Foot Wound Culture - Preliminary Mixed Gram Positive Organisms 11/21/21 11:00 Wound - Left Foot Gram Stain - Final 11/21/21 11:00 Wound - Left Foot Wound Culture - Final Providencia alcalifaciens Klebsiella oxytoca Escherichia coli Enterococcus faecalis Enterococcus avium Streptococcus mitis/ oralis Corynebacterium jeikeium 11/23/21 08:40 Tissue - Left Foot Gram Stain - Final 11/23/21 08:40 Tissue - Left Foot Wound Culture - Preliminary Gram positive organism 11/23/21 08:40 Tissue - Left Foot Gram Stain - Final 11/23/21 08:40 Tissue - Left Foot Wound Culture - Preliminary Mixed Gram Positive Organisms 11/21/21 14:20 Blood Culture (Wb) - Anticubital Right Blood Culture - Preliminary No growth in 48 hours. 11/21/21 13:10 Blood Culture (Wb) - Anticubital Left Blood Culture - Preliminary No growth in 48 hours. Laboratory Results 11/24/21 13:07: POC Glucose 165 H 11/24/21 16:49: POC Glucose 144 H 11/24/21 21:25: POC Glucose 198 H 11/25/21 04:25: POC Glucose 138 H 11/25/21 05:20: WBC 6.1, RBC 3.73 L, Hgb 10.9 L, Hct 31.7 L, MCV 85.0, MCH 29.2, MCHC 34.4, RDW Std Deviation 36.6, RDW Coeff of Kelsey 11.9, Plt Count 194, MPV 9.1, Immature Gran % (Auto) 0.200, Neut % (Auto) 59.7, Lymph % (Auto) 26.6, [place] % (Auto) 9.9, Eos % (Auto) 2.6, Baso % (Auto) 1.0, Absolute Neuts (auto) 3.6, Absolute Lymphs (auto) 1.61, Nucleated RBC % 0 11/25/21 05:20: Sodium 140, Potassium 3.8, Chloride 107, Carbon Dioxide 26.0, Anion Gap 7, BUN 35 H, Creatinine 1.23, Estim Creat Clear Calc 48.63, Est GFR (MDRD) Af Amer 73, Est GFR (MDRD) Non-Af 60, BUN/Creatinine Ratio 28.5 H, Glucose 142 H, Calcium 8.8 11/25/21 08:10: POC Glucose 148 H Clinical Impression(s) from Imaging Studies Extremity Arterial Study 11/21/21 11:58 Interpretation Summary Right ANTONIETTA 1.18, normal. Doppler/PVR waveforms of the right leg normal at rest. Left ANTONIETTA 1.0, normal. Doppler/PVR waveforms of the left leg normal at rest. Lower Extremity MRI 11/21/21 11:58 IMPRESSION: Extremely limited study. Significant findings could be missed. No evidence of osteomyelitis. Electronically Signed: Nohemi Wilson MD at 18:18 EDT Reading Location ID and State: [id number] / Tel , Service support , Foot X-Ray 11/21/21 15:40 IMPRESSION: 1. No osteomyelitis or periostitis the left fourth metatarsal or left fourth toe. 2. No osteomyelitis or periostitis of the remaining osseous structures of the left foot. 3. No fractures or dislocations. 4. No osseous lytic, sclerotic or mass lesions. 5. Small Achilles and calcaneal spurs. 6. Normal soft tissues. No subcutaneous emphysema or radiopaque foreign bodies. Charges/Coding Visit Charges Inpatient E&M: 80400 Subs Hosp L2
[2021-11-25 12:45] LABS: Bedside Glucose 214 mg/dL (74-106)
[2021-11-25 18:20] LABS: Bedside Glucose 206 mg/dL (74-106)
[2021-11-26] VITALS (7 sets, daily range): BP systolic 146–165; BP diastolic 53–64; PULSE 52–62; RESP 16–18; TEMP 36.4–36.9; O2SAT 95–98
[2021-11-26 00:11] LABS: Bedside Glucose 242 mg/dL (74-106)
[2021-11-26] MEDS: Insulin Lispro 100 UNIT/ML INSULN.PEN SC ×3 (06:31→11:10)
[2021-11-26 06:55] LABS: Bedside Glucose 184 mg/dL (74-106)
[2021-11-26] MEDS: Multivitamins,Ther W-Minerals Tablet 1 TABLET PO (09:37)
[2021-11-26] MEDS: Doxazosin 1 MG Tablet 2 MG PO (09:38)
[2021-11-26] MEDS: Docusate Sodium 100 MG Capsule PO (09:38)
[2021-11-26] MEDS: Losartan Potassium 50 MG Tablet PO (09:38)
[2021-11-26] MEDS: Aspirin E.C. 81 MG Tablet PO (09:38)
[2021-11-26] MEDS: Juven (unflavored) Packet 1 PACKET PO (09:38)
[2021-11-26] MEDS: Insulin Glargine-YFGN 100 UNIT/ML Pen 18 UNIT SC (09:39)
[2021-11-26] MEDS: Metoprolol(XL)Succ 25 MG Tablet 12.5 MG PO (09:39)
[2021-11-26] MEDS: Enoxaparin 40 MG/0.4 ML Syringe SC (09:39)
--- NOTE | 2021-11-26 10:02 | CASEMGMT ---
Discharge Traffic Incident Management Manager [facility] reached out via [facility]. Pre-cert has been obtained. JAZMÍN Raygoza has been notified. Plan: [place], When medically ready. [place] Maldonado Discharge Traffic Incident Management Manager
--- NOTE | 2021-11-26 11:46 | WOUNDNOTE ---
wound photo: left plantar foot
--- NOTE | 2021-11-26 11:46 | WOUNDNOTE ---
wound photo: right moses
--- NOTE | 2021-11-26 11:56 | CASEMGMT ---
Social Work SW recevied phone call from pt's granddaughter who states she is with pt . Inquiring if pt will be discharged today. Informed that precert has been obtained and pt to discharge today to [facility]. Physician to come in later today to write dischage orders so no discharge time has been set yet. SW will keep pt updated of discharge plan. LUCAS Joiner
[2021-11-26] MEDS: Amox/Clavulanate 875 MG Tablet PO (11:59)
[2021-11-26] MEDS: Ciprofloxacin 500 MG Tablet PO (11:59)
[2021-11-26 12:01] LABS: Bedside Glucose 291 mg/dL (74-106)
--- NOTE | 2021-11-26 12:26 | PCM.DC.SUM ---
Providers Date of Admission: 11/21/21 Primary Care Physician: Dr. Nawaf Villaseñor MD Consultations 11/21/21 11:54 Consult: Onc/Wound/artificial flowers starcher Routine Comment: 11/21/21 11:57 Consult: Hospitalist Routine Consulting Provider: Santana Claire Reason for Consult: diabetes and other medical problems EMERGENT Consult: No Notified: Yes Date Notified: 11/21/21 Time Notified: 11:58 Method of Notification: via spok 11/21/21 12:06 Consult: Infectious Disease Routine Consulting Provider: Harman Mauricio Reason for Consult: necrotic left foot infection, concern for osteomyelitis EMERGENT Consult: No Notified: Yes Date Notified: 11/21/21 Time Notified: 12:06 Method of Notification: Answering Service Reason For Visit: L FOOT INFECTION, NECROTIC ULCER DM Diagnosis Discharge Diagnosis (1) Osteomyelitis of ankle or foot, left, acute: Status: Acute Code(s): M86.172 - Other acute osteomyelitis, left ankle and foot (2) Non-pressure chronic ulcer of other part of left foot with necrosis of bone: Status: Chronic Code(s): L97.524 - Non-pressure chronic ulcer of other part of left foot with necrosis of bone Medications at Discharge Home Medications aspirin 81 mg tablet,delayed release (Adult Aspirin Regimen) 81 mg PO DAILY heart 05/29/17 coenzyme Q10 100 mg capsule (Co Q-10) 100 mg PO DAILY supplement 06/04/17 hgccljtr-byg-ilirz acid 0.4 mg-lycopene 300 mcg-lutein 250 mcg tablet 1 tab PO DAILY supplement 08/21/18 calcium carb-vit G4-abtjhtoll-ktid 333 mg-200 unit-133 mg-5 mg tablet 1 tab PO DAILY supplement 10/18/19 insulin glargine 100 unit/mL (3 mL) subcutaneous pen 25 unit subcut BID dm 10/18/19 omega-3 fatty acids 1,000 mg capsule (Fish Oil Concentrate) 1,000 mg PO BID 10/18/19 amiloride 5 mg tablet 5 mg PO BID heart #180 tabs 10/05/20 doxazosin 2 mg tablet 2 mg PO BID prostate #180 tabs 10/05/20 losartan 50 mg tablet 50 mg PO DAILY heart 08/10/21 insulin aspart U-100 100 unit/mL (3 mL) subcutaneous pen (Novolog Flexpen U-100 Insulin aspart) 15 sliding scale dose subcut BREAKFAST DM 11/21/21 insulin aspart U-100 100 unit/mL (3 mL) subcutaneous pen (Novolog Flexpen U-100 Insulin aspart) 15 unit subcut LUNCH dm 11/21/21 insulin aspart U-100 100 unit/mL (3 mL) subcutaneous pen (Novolog Flexpen U-100 Insulin aspart) 20 unit subcut DINNER dm 11/21/21 insulin lispro 100 unit/mL subcutaneous pen See Protocol SC ACHS dm 11/21/21 metoprolol succinate 25 mg tablet,extended release 24 hr 12.5 mg PO BID heart 11/21/21 amoxicillin 875 mg-potassium clavulanate 125 mg tablet 875 mg PO BID 10 days #18 tabs 11/26/21 ciprofloxacin HCl 500 mg tablet 500 mg PO BID 10 days #20 tabs 11/26/21 enoxaparin 40 mg/0.4 mL subcutaneous syringe 40 mg (0.4 mL) subcut DAILY dvt prophylaxis #12 mL 11/26/21 Hospital Course Summary of Care Provided Hospital Course: Patient admitted from clinic due to left foot infection on 11/21/2021. MRI was taken on 11/22/2021. This confirmed abscess to the fourth interspace. Patient was placed on IV antibiotics at time of admission continue to receive these. Patient underwent incision and drainage of abscess to the left foot on 11/23/2021. A wound VAC was applied on this day as well. Since that time patient has noted significant improvement to his left foot infection has been followed by infectious disease. Infectious diseases recommended discharge on oral antibiotics including Augmentin and ciprofloxacin. Due to prolonged nonweightbearing required to alleviate the left foot wound patient will be discharged to fdc facility for additional recovery. Physical Exam Narrative Patient AOx3. Neurovascular status unchanged from previous evaluation. Full-thickness wound granulating in well demonstrates good healing potential. No residual residual signs of infection at this time. No pain with calf squeeze or palpation of popliteal fossa muscular strength full to bilateral lower extremity compartments. Weight / BMI Weight Weight: 102.8 kg Body Mass Index (BMI) 31.4 ABG / Lab / Microbiology Data Result Diagrams: 11/25/21 05:20 11/25/21 05:20 Laboratory: Laboratory Results - last 24 hr 11/25/21 12:12: POC Glucose 214 H 11/25/21 17:48: POC Glucose 206 H 11/25/21 22:35: POC Glucose 242 H 11/26/21 06:29: POC Glucose 184 H 11/26/21 11:08: POC Glucose 291 H Microbiology: Microbiology 11/26/21 10:30 Nasal Secretion SARS-CoV-2 Antigen (Rapid) - Final 11/23/21 08:40 Tissue - Left Foot Gram Stain - Final 11/23/21 08:40 Tissue - Left Foot Wound Culture - Preliminary GPC Poss Enterococcus sp Streptococcus mitis/ oralis Staphylococcus species Gram positive robbin 11/23/21 08:40 Tissue - Left Foot Gram Stain - Final 11/23/21 08:40 Tissue - Left Foot Wound Culture - Preliminary Mixed Gram Positive Organisms 11/23/21 08:40 Tissue - Left Foot Anaerobic Culture - Preliminary 11/23/21 08:40 Tissue - Left Foot Gram Stain - Final 11/23/21 08:40 Tissue - Left Foot Wound Culture - Final Staphylococcus epidermidis Corynebacterium amycolatum 11/23/21 08:40 Tissue - Left Foot Anaerobic Culture - Preliminary 11/21/21 11:00 Wound - Left Foot Gram Stain - Final 11/21/21 11:00 Wound - Left Foot Wound Culture - Final Providencia alcalifaciens Klebsiella oxytoca Escherichia coli Enterococcus faecalis Enterococcus avium Streptococcus mitis/ oralis Corynebacterium jeikeium 11/21/21 14:20 Blood Culture (Wb) - Anticubital Right Blood Culture - Preliminary No growth in 48 hours. 11/21/21 13:10 Blood Culture (Wb) - Anticubital Left Blood Culture - Preliminary No growth in 48 hours. D/C Instructions Additional Instructions: Patient will continue PO antibiotics per infectious disease. Patient will follow up wound care center in 1 week. Patient remain nonweightbearing to left foot patient can weight-bear to his heel in surgical shoe for transfer purposes only. Will continue wound VAC until wound becomes superficial. Arterial studies during the stay were within normal limits relatively. We will observe this closely and consider vascular consultation if required during the outpatient period. Please Follow Up With: Dayne Rush DPM When: 1 week Meaningful Use Info Meaningful Use Diagnoses (Choose all that apply): None applicable Discharge Plan Admission Admit Date/Time: 11/21/21 11:54 Attending Provider: Keenan Oliver Primary Care Provider: Nawaf Villaseñor Consulting Providers: Santana Claire ; Harman Mauricio ; Carlos Lopez Discharge Orders/Prescriptions Prescriptions: New ciprofloxacin HCl 500 mg Tablet 500 mg PO BID 10 Days Qty: 20 0RF amoxicillin-pot clavulanate 875-125 mg Tablet 875 mg PO BID 10 Days Qty: 18 0RF enoxaparin 40 mg/0.4 mL Syringe 40 mg subcut DAILY Qty: 12 0RF Rx Instructions: daily application subcutaneous for 21 days Continued aspirin [Adult Aspirin Regimen] 81 mg tablet,delayed release (DR/EC) 81 mg PO DAILY Label Comments: FOLLOW DR OLIVER INSTRUCTIONS ABOUT STOPPING coenzyme Q10 [Co Q-10] 100 mg capsule 100 mg PO DAILY insulin glargine 100 unit/mL (3 mL) insulin pen 25 unit subcut BID calcium carb-D3-mag nth07-khge [id number] yo-vxvq-fp-mg tablet 1 tab PO DAILY Rx Instructions: administer with a meal omega-3 fatty acids [Fish Oil Concentrate] 1,000 mg capsule 1,000 mg PO BID losartan 50 mg tablet 50 mg PO DAILY uckveglz-cng-HD-lycopen-lutein 1 EACH tablet 1 tab PO DAILY insulin aspart U-100 [Novolog Flexpen U-100 Insulin] 100 unit/mL (3 mL) insulin pen 15 sliding scale dose SUBCUT BREAKFAST Label Comments: INJECT 15 UNITS SUBCUTANEOUSLY BEFORE BREAKFAST, 5 UNITS WITH AFTERNOON SNACK, 20 UNITS BEFORE SUPPER, AND PER SLIDING SCALE. MAX 100 UNITS DAILY. insulin aspart U-100 [Novolog Flexpen U-100 Insulin] 100 unit/mL (3 mL) insulin pen 15 unit SUBCUT LUNCH Label Comments: INJECT 15 UNITS SUBCUTANEOUSLY BEFORE BREAKFAST, 5 UNITS WITH AFTERNOON SNACK, 20 UNITS BEFORE SUPPER, AND PER SLIDING SCALE. MAX 100 UNITS DAILY. insulin aspart U-100 [Novolog Flexpen U-100 Insulin] 100 unit/mL (3 mL) insulin pen 20 unit SUBCUT DINNER Label Comments: INJECT 15 UNITS SUBCUTANEOUSLY BEFORE BREAKFAST, 5 UNITS WITH AFTERNOON SNACK, 20 UNITS BEFORE SUPPER, AND PER SLIDING SCALE. MAX 100 UNITS DAILY. metoprolol succinate 25 mg tablet extended release 24 hr 12.5 mg PO BID insulin lispro 100 UNIT/ML insulin pen See Protocol SC ACHS Protocol: 1. Sliding Scale Insulin Low Dosing Condition: 150-224 mg/dl = 1 unit Condition: 225-299 mg/dl = 2 units Condition: 300-374 mg/dl = 3 units Condition: 375-499 mg/dl = 4 units Condition: Greater than 449 call physician Protocol Text: - Use for Total Daily Dose of Insulin 15-27 units - Thin, elderly, renal patients LOW DOSING ALGORITHM amiloride 5 mg tablet 5 mg PO BID Qty: 180 3RF doxazosin 2 mg tablet 2 mg PO BID Qty: 180 3RF Referrals / Follow Up: Dayne Rush DPM [Med Staff - Active Staff] - (wound care center, 1 week follow up, call for appointment) Nawaf Villaseñor MD [Primary Care Provider] - Disposition Disposition (needs filled in before D/C Order can be placed): [facility]
--- NOTE | 2021-11-26 12:34 | PCM.PN.ID ---
Physical Exam Narrative Feeling better, no fever Const alert and no apparent distress Resp normal air movement and clear to auscultation bilaterally Cardio regular rate and regular rhythm GI soft to palpation, non-tender and non-distended Skin Skin Narrative: foot wrapped ID ID: Route of nutrition/ use of supplements: [] Nutritional Intake: [] IV Site: [] Garvey Catheter: [] Assessment & Plan Assessment/Plan (1) Diabetic foot infection: PLAN: Prior h/o MRSA and ESBL foot osteo on R in 2019. Now with necrotic L foot ulcer abd abscess. Wound cx with providencia, klebs, enterococcus x2, msse, GPR, ecoli, corynebacter, on empiric vanc/ravi. MRI was poor quality study. No bone involvement seen in OR for I&D abscess this AM 11/[address] Rush. With good source control now and no sign bone involvement, plan will be for discharge on 10 days po cipro/augmentin, wrote rx. Will follow, d/w adult protective caseworker
--- NOTE | 2021-11-26 13:43 | CASEMGMT ---
Addendum entered by Idalmis Eller 11/26/21 14:45: SW spoke to , pt and Dr. Lopez. It was determined would transport pt to SNF. SW will not set up transportation for pt. SW called and let message for Tiny at the [facility] to inform of this. LUCAS Yanez Original Note: Social Work SW in to inform pt of insurance authorization. Pt appreciative. SW completed [facility] 6410 convalescent form. Called pt to discuss transportation as previously mentioned may transport on own rather than use ambulance. Left message. JAZMÍN faxed d/c orders to [facility] via [facility]. Placed copies of orders on pt chart and originals in envelope to go with pt upon discharge. PLAN: waiting for pt to inform if will transport pt or SW to set up transport through [facility]. Disposition: [facility], skilled, convalescent level of care LUCAS Yanez
--- NOTE | 2021-11-26 14:17 | PHA.DC.MR ---
Pharmacy Service has performed discharge medication reconciliation for this patient. The patient's discharge medication list was reviewed for discrepancies and discrepancies were resolved. Home Medications aspirin 81 mg tablet,delayed release (Adult Aspirin Regimen) 81 mg PO DAILY heart 05/29/17 coenzyme Q10 100 mg capsule (Co Q-10) 100 mg PO DAILY supplement 06/04/17 efhdotiy-xem-tfwnz acid 0.4 mg-lycopene 300 mcg-lutein 250 mcg tablet 1 tab PO DAILY supplement 08/21/18 calcium carb-vit S5-ubstgnrzn-cjja 333 mg-200 unit-133 mg-5 mg tablet 1 tab PO DAILY supplement 10/18/19 insulin glargine 100 unit/mL (3 mL) subcutaneous pen 25 unit subcut BID dm 10/18/19 omega-3 fatty acids 1,000 mg capsule (Fish Oil Concentrate) 1,000 mg PO BID 10/18/19 amiloride 5 mg tablet 5 mg PO BID heart #180 tabs 10/05/20 doxazosin 2 mg tablet 2 mg PO BID prostate #180 tabs 10/05/20 losartan 50 mg tablet 50 mg PO DAILY heart 08/10/21 insulin aspart U-100 100 unit/mL (3 mL) subcutaneous pen (Novolog Flexpen U-100 Insulin aspart) 15 sliding scale dose subcut BREAKFAST DM 11/21/21 insulin aspart U-100 100 unit/mL (3 mL) subcutaneous pen (Novolog Flexpen U-100 Insulin aspart) 15 unit subcut LUNCH dm 11/21/21 insulin aspart U-100 100 unit/mL (3 mL) subcutaneous pen (Novolog Flexpen U-100 Insulin aspart) 20 unit subcut DINNER dm 11/21/21 insulin lispro 100 unit/mL subcutaneous pen See Protocol SC ACHS dm 11/21/21 metoprolol succinate 25 mg tablet,extended release 24 hr 12.5 mg PO BID heart 11/21/21 amoxicillin 875 mg-potassium clavulanate 125 mg tablet 875 mg PO BID 10 days #18 tabs 11/26/21 ciprofloxacin HCl 500 mg tablet 500 mg PO BID 10 days #20 tabs 11/26/21 enoxaparin 40 mg/0.4 mL subcutaneous syringe 40 mg (0.4 mL) subcut DAILY dvt prophylaxis #12 mL 11/26/21
--- NOTE | 2021-11-26 17:52 | PCM.PN.HOSP ---
Subjective Subjective Patient was seen and examined today, I talked briefly with podiatry about his care, I also talked with patient's who was present at 1 time during my visit with the patient. I was asked to sign a DNR CC arrest form for the patient, I discussed this with the patient and he denied consenting to this, there was documentation from Dr. Claire yesterday that he talked with the patient and the patient's but evidently the patient did not understand Dr. Tsang's discussion thoroughly and today he states that he believes that he would desire full measures if he had a code occur. The patient appears to be able to make his own decisions at this time, patient's is his power of tax associate attorney but since the patient is able to make his own decisions, I discarded the document making him a DNR CC arrest. Objective Data Objective Data Vital Signs: Vital Signs Temp Pulse Resp BP Pulse Ox O2 Del Method 97.6 F L 52 L 18 153/61 H 98 Room Air 11/26/21 15:00 11/26/21 15:00 11/26/21 15:00 11/26/21 15:00 11/26/21 15:00 11/26/21 15:00 Oxygen Delivery Method Room Air Weight: 102.8 kg Body Mass Index (BMI) 31.4 Intake & Output: Intake and Output for Last 24 Hours 11/24/21 11/25/21 11/26/21 23:59 23:59 23:59 Intake Total 1970.0 / 1970.0 1320 / 1320 126.0 / 126.0 Output Total 800 / 800 850 / 1100 500 / 500 Balance 1170.0 / 1170.0 470 / 220 -374.0 / -374.0 Lab / Micro Data Result Diagrams: 11/25/21 05:20 11/25/21 05:20 Labs: Laboratory Results - last 24 hr 11/25/21 17:48: POC Glucose 206 H 11/25/21 22:35: POC Glucose 242 H 11/26/21 06:29: POC Glucose 184 H 11/26/21 11:08: POC Glucose 291 H Micro: Microbiology 11/21/21 14:20 Blood Culture (Wb) - Anticubital Right Blood Culture - Final No growth in 5 days. 11/23/21 08:40 Tissue - Left Foot Gram Stain - Final 11/23/21 08:40 Tissue - Left Foot Wound Culture - Preliminary Gram negative robbin Alpha Hemolytic Streptococcus Alpha hemolytic organism Gram negative robbin#2 Gram positive robbin 11/21/21 13:10 Blood Culture (Wb) - Anticubital Left Blood Culture - Final No growth in 5 days. 11/26/21 10:30 Nasal Secretion SARS-CoV-2 Antigen (Rapid) - Final 11/23/21 08:40 Tissue - Left Foot Gram Stain - Final 11/23/21 08:40 Tissue - Left Foot Wound Culture - Preliminary GPC Poss Enterococcus sp Streptococcus mitis/ oralis Staphylococcus species Gram positive robbin 11/23/21 08:40 Tissue - Left Foot Gram Stain - Final 11/23/21 08:40 Tissue - Left Foot Wound Culture - Final Staphylococcus epidermidis Corynebacterium amycolatum 11/23/21 08:40 Tissue - Left Foot Anaerobic Culture - Preliminary 11/21/21 11:00 Wound - Left Foot Gram Stain - Final 11/21/21 11:00 Wound - Left Foot Wound Culture - Final Providencia alcalifaciens Klebsiella oxytoca Escherichia coli Enterococcus faecalis Enterococcus avium Streptococcus mitis/ oralis Corynebacterium jeikeium Physical Exam Const alert, oriented x3, no apparent distress, average body habitus and healthy appearing General Appearance: cooperative, well kempt and well developed Orientation / Consciousness: awake, oriented to person, oriented to place and oriented to time HEENT normocephalic and moist oral mucous membranes Eyes PERRL, EOMs intact bilaterally and conjunctivae normal Neck supple, no JVD, thyroid normal and no carotid bruits General: trachea midline Resp normal respiratory effort, no retractions, no use of accessory muscles and clear to auscultation bilaterally Auscultation: Negative for rales, rhonchi or wheezes Cardio regular rate, regular rhythm, S1 normal heart sound, S2 normal heart sound, no murmurs, no rub and no gallops GI normal to inspection, nondistended, normoactive bowel sounds, soft to palpation, non-tender and non-distended Extremity Extremity Narrative: 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 Neuro oriented x3, CN's II-XII intact bilaterally, no focal motor deficits and no sensory deficits noted Sensorium / Orientation: awake and alert Speech: speech normal Psych affect normal Assessment & Plan Assessment/Plan (1) Type 2 diabetes mellitus with diabetic polyneuropathy: PLAN: Plan 1. Type 2 diabetes-[facility]'s [facility] was completed by podiatry, he will remain on his present medications for his type 2 diabetes. #2 diabetic polyneuropathy-complicates care, management, recovery, and prognosis #3 neuropathic wound infection left foot-status postdebridement of area, positive organisms include probably dentia, Klebsiella, Enterococcus, E. coli, corynebacterium, and msse-patient will continue oral antibiotic coverage at the detention #4 atherosclerotic heart disease-this is stable at this time #5 essential hypertension-patient will remain on his present medications #6 peripheral vascular disease-complicates care, management, recovery, and prognosis Charges/Coding Visit Charges Inpatient E&M: 29417 Subs Hosp L2
== END 2021-11-26 15:26 | disposition skilled nursing facility (03) | DRG 623 ==
PROVIDERS: Anesthesiology; Internal Medicine; Internal Medicine Infectious Disease; Podiatrist; Admitting Provider Podiatrist; PCP Family Medicine; Visit Provider Podiatrist
PROC: 0KBW0ZZ Excision of Left Foot Muscle, Open Approach (ICD-10-PCS; principal; 2021-11-23 07:20)
DX: E11.621 Type 2 diabetes mellitus with foot ulcer (principal); L03.116 Cellulitis of left lower limb; M86.172 Other acute osteomyelitis, left ankle and foot; L02.612 Cutaneous abscess of left foot; L97.524 Non-pressure chronic ulcer of other part of left foot with necrosis of bone; E11.21 Type 2 diabetes mellitus with diabetic nephropathy; B95.62 Methicillin resistant Staphylococcus aureus infection as the cause of diseases classified elsewhere; B96.1 Klebsiella pneumoniae [K. pneumoniae] as the cause of diseases classified elsewhere; E11.42 Type 2 diabetes mellitus with diabetic polyneuropathy; E11.51 Type 2 diabetes mellitus with diabetic peripheral angiopathy without gangrene; Z79.4 Long term (current) use of insulin; E11.628 Type 2 diabetes mellitus with other skin complications; N18.31 Chronic kidney disease, stage 3a; I25.10 Atherosclerotic heart disease of native coronary artery without angina pectoris; E78.5 Hyperlipidemia, unspecified; M77.30 Calcaneal spur, unspecified foot; I12.9 Hypertensive chronic kidney disease with stage 1 through stage 4 chronic kidney disease, or unspecified chronic kidney disease; Z87.891 Personal history of nicotine dependence; Z66 Do not resuscitate; H91.92 Unspecified hearing loss, left ear; Z51.5 Encounter for palliative care; Z79.01 Long term (current) use of anticoagulants; Z79.2 Long term (current) use of antibiotics; Z95.1 Presence of aortocoronary bypass graft
CPT/HCPCS: 36415; 73630; 73718; 80048; 80053; 80202; 82962; 83036; 83735; 84100; 84443; 85025; 85652; 86140; 87040; 87070; 87075; 87077; 87176; 87186; 87205; 87426; 87640; 93005; 93923; 97116; 97162; 97166; 97530; 97535; 99251; J2185; J7040; J7050; J7120; A4216; G0463

== ENCOUNTER 2021-12-25 10:15 | Outpatient (RCR) | payer MEDICARE, SELFPAY ==
[2021-12-11 09:28] VITALS: BP 132/67; PULSE 65; RESP 16; TEMP 36.2; BMI 41.7
--- NOTE | 2021-12-11 10:34 | PCM.WC.HP ---
History of Present Illness Date of Service: 12/11/21 Progress of Wound: 81-year-old male underwent incision and drainage of deep abscess to left plantar foot on 11/30/2021. patient denies constitutional symptoms today. Pain was well controlled. Patient off antibiotics at this time he was discharged on Augmentin and ciprofloxacin. No residual signs of infection. Patient was initially his discharge to a retirement facility for strict nonweightbearing and wound VAC therapy. Patient was noncompliant with this as he actually broke his wound VAC and cut the cord on his wound VAC. Patient was noted to be walking on his foot despite nonweightbearing status in this facility. Patient was discharged home and never seems dressing changes per home health care. Patient has no other complaints at this time. 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 Uncontrolled type 2 diabetes mellitus, with long-term current use of insulin Home Medications aspirin 81 mg tablet,delayed release (Adult Aspirin Regimen) 81 mg PO DAILY heart 05/29/17 [History Last Taken 11/21/21] coenzyme Q10 100 mg capsule (Co Q-10) 100 mg PO DAILY supplement 06/04/17 [History Last Taken 11/21/21] exppknad-ngi-wsxlv acid 0.4 mg-lycopene 300 mcg-lutein 250 mcg tablet 1 tab PO DAILY supplement 08/21/18 [History Last Taken 11/21/21] calcium carb-vit L5-agvommwrj-ksdf 333 mg-200 unit-133 mg-5 mg tablet 1 tab PO DAILY supplement 10/18/19 [History Last Taken 11/21/21] insulin glargine 100 unit/mL (3 mL) subcutaneous pen 25 unit subcut BID dm 10/18/19 [History Last Taken 11/21/21] omega-3 fatty acids 1,000 mg capsule (Fish Oil Concentrate) 1,000 mg PO BID 10/18/19 [History Last Taken Unknown] amiloride 5 mg tablet 5 mg PO BID heart #180 tabs 10/05/20 [Rx Last Taken 11/21/21] doxazosin 2 mg tablet 2 mg PO BID prostate #180 tabs 10/05/20 [Rx Last Taken 11/21/21] losartan 50 mg tablet 50 mg PO DAILY heart 08/10/21 [History Last Taken 11/21/21] insulin aspart U-100 100 unit/mL (3 mL) subcutaneous pen (Novolog Flexpen U-100 Insulin aspart) 15 sliding scale dose subcut BREAKFAST DM 11/21/21 [History Last Taken 11/21/21] insulin aspart U-100 100 unit/mL (3 mL) subcutaneous pen (Novolog Flexpen U-100 Insulin aspart) 15 unit subcut LUNCH dm 11/21/21 [History Last Taken Unknown] insulin aspart U-100 100 unit/mL (3 mL) subcutaneous pen (Novolog Flexpen U-100 Insulin aspart) 20 unit subcut DINNER dm 11/21/21 [History Last Taken Unknown] insulin lispro 100 unit/mL subcutaneous pen See Protocol SC ACHS dm 11/21/21 [History Last Taken 11/21/21] metoprolol succinate 25 mg tablet,extended release 24 hr 12.5 mg PO BID heart 11/21/21 [History Last Taken 11/21/21] amoxicillin 875 mg-potassium clavulanate 125 mg tablet 875 mg PO BID 10 days #18 tabs 11/26/21 [Rx Last Taken Unknown] ciprofloxacin HCl 500 mg tablet 500 mg PO BID 10 days #20 tabs 11/26/21 [Rx Last Taken Unknown] enoxaparin 40 mg/0.4 mL subcutaneous syringe 40 mg (0.4 mL) subcut DAILY dvt prophylaxis #12 mL 11/26/21 [Rx Last Taken Unknown] Allergy/AdvReac Type Severity Reaction Status Date / Time glyburide Allergy Intermediate Unknown Verified 09/06/20 08:51 Iodinated Contrast Media Allergy Rash Verified 09/06/20 08:51 [CONTRASTS] amlodipine [From Norvasc] AdvReac Unknown Unknown Verified 09/06/20 08:51 atorvastatin [From Lipitor] AdvReac Unknown Unknown Verified 09/06/20 08:51 cerivastatin [From Baycol] AdvReac Unknown Unknown Verified 09/06/20 08:51 enalapril AdvReac Unknown Unknown Verified 09/06/20 08:51 exenatide [From Byetta] AdvReac Unknown Unknown Verified 09/06/20 08:51 ezetimibe [From Zetia] AdvReac Unknown Unknown Verified 09/06/20 08:51 fenofibrate [From Tricor] AdvReac Unknown Unknown Verified 09/06/20 08:51 gemfibrozil AdvReac Unknown Unknown Verified 09/06/20 08:51 glipizide [From Glucotrol] AdvReac Unknown Unknown Verified 09/06/20 08:51 labetalol AdvReac Unknown Unknown Verified 09/06/20 08:51 lovastatin [From Mevacor] AdvReac Unknown Unknown Verified 09/06/20 08:51 metformin [From Glucophage] AdvReac Unknown Unknown Verified 09/06/20 08:51 niacin AdvReac Unknown Unknown Verified 09/06/20 08:51 [From Niaspan Extended-Release] nifedipine [From Adalat] AdvReac Unknown Unknown Verified 09/06/20 08:51 quinapril [From Accupril] AdvReac Unknown Unknown Verified 09/06/20 08:51 repaglinide [From Prandin] AdvReac Unknown Unknown Verified 09/06/20 08:51 rosuvastatin [From Crestor] AdvReac Unknown Unknown Verified 09/06/20 08:51 simvastatin [From Zocor] AdvReac Unknown Unknown Verified 09/06/20 08:51 Family History Mother Diabetes Father , Age 56 Myocardial infarction Brother Diabetes Brother Diabetes Brother Multiple sclerosis Surgical History History of coronary artery bypass graft History of lung surgery 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) Presence of stent in coronary artery Social History Smoking Status: Never smoker second hand exposure: No alcohol intake: never substance use type: does not use ROS Eyes Eyes: Denies blurry vision, double vision or loss of central vision ENT HEENT: Denies neck mass, tinnitus or tongue swelling Cardiovascular Cardiovascular: Denies bluish discoloration of hand/feet, diaphoresis or fatigue Respiratory/Chest Respiratory/Chest: Denies chest tightness, cough or hemoptysis Gastrointestinal Gastrointestinal: Denies change in stool character, early satiety or odynophagia Genitourinary Genitourinary: Denies change in urinary stream, difficulty urinating or external genitalia discoloration Vital Signs Vital Signs Vital Signs: 12/11/21 09:28 Temperature 97.2 F L Temperature Source Temporal Pulse Rate 65 Respiratory Rate 16 Blood Pressure 132/67 H Blood Pressure Mean 88 Blood Pressure Source Monitor Blood Pressure Position Sitting Blood Pressure Location Right Arm Oxygen Delivery Method Room Air Weight Weight: 100.244 kg Body Mass Index (BMI) 41.7 Debridement Note Debridement Note Post-Debridement Measurements and Additional Note: Post-Debridement Measurements/Treatment - Nurse 1 - General Ulcer Assessment Start: 12/11/21 09:27 Freq: Status: Active Protocol: [email or web address].[email or web address] Activity Type Activity Date Activity User E-sign Co-sign Detail Recorded Client Recorded Date Recorded By Document 12/11/21 09:28 [facility] [id number] 12/11/21 09:41 [facility] 12/11/21 09:28 - Today's Visit Information Type of service Initial Visit Arrival Mode Ambulatory Transfer Assistance None Patient Identification Verified (Name & Yes ) Patient Requires Transmission-Based No Precautions Height and Weight Height 5 ft 1 in Weight 100.244 kg Weight in Pounds 221.0 lbs Weight Measurement Method Stated by Patient Body Mass Index (BMI) 41.7 BMI Classification Obese BSA - [place] 1.97 Vital Signs Temperature (97.8 F-99.1 F) 97.2 F L Temperature Source Temporal Pulse Rate (60-100) 65 Pulse Location Monitor Respiratory Rate (12-18) 16 Respiratory rate source Observation Oxygen Delivery Method Room Air Blood Pressure (90/60-120/80) 132/67 H Blood Pressure Mean 88 Source Monitor Position Sitting Blood Pressure Location Right Arm History Since Last Visit- (Skip if this is Patient's initial visit) Left Footwear Surgical Shoe with pressure relief insole Right Footwear Regular Shoe Pain Scale: 0-10 Numeric Is Patient Pain Free? Yes Communication Assessment Preferred language Maced[place] Sports Psychologist Required No Able to Read Yes Able to Write Yes Communication Tools None Right Hearing Abillity Hard of Hearing Left Hearing Abillity Hard of Hearing Visual Assistive Devices None Teaching Assessment Preferences Verbal,Written, Audio/Visual, Demonstration Barriers to Learning None Readiness To Learn Excellent Willingness to Engage in Self Management High Activies Readiness to Engage in Self Management High Activities Anxiety Level Calm Cooperation Cooperative Perception Coherent Interest in Health Problem Asks Questions Education Importance Acknowledges Need Does Patient Smoke tobacco or other No substances Is Patient Diabetic Yes Functional Assessment Recent Decline in Ability to Perform Ambulation Culture/Denominational/Health Officer Cultural/Denominational Needs that may affect No Treatment Plan Teaching: Wound Center *Welcome to the Wound Center -Person Taught Patient -Teaching Method Discussion -Response to teaching Verbalize understanding Welcome to the Wound Care Center [place] WC - Nurse 1 - General Ulcer Measurement Start: 12/11/21 09:27 Freq: Status: Active Protocol: Activity Type Activity Date Activity User E-sign Co-sign Detail Recorded Client Recorded Date Recorded By Document 12/11/21 09:28 [facility] [id number] 12/11/21 09:41 [facility] 12/11/21 09:28 Wound Center Nurse 1 #1- L PLANTAR -Combined with other wound No -Current Size (cm) - Length 1.6 -Current Size (cm) - Width 0.9 -Current Size (cm) - Depth 0.9 -Total Square Cm 1.44 -Date of Last Picture (Recall this 12/11/21 field) -Photo Taken Yes -Epithelialization None Present -Tunneling No -Undermining/Tunneling Yes -Undermining/Tunneling Starts (O'clock 9 ) -Undermining/Tunneling Ends (O'clock) 3 -Maximum Distance (cm) 0.5 -Circular Undermining No -Exudate Amt Medium -Exudate Type Serosanguineous -Wound Margin Distinct, Outline Attached -Granulation Amt Large (67-100%) -Granulation Quality [place] -Slough/Fibrin Yes -Necrosis Amt Small (1-33%) -Necrotic Tissue Type Adherent Slough -Texture (Susan-wound Skin Appearance) Assessed,Callus ,Scarring -Moisture (Susan-wound Skin Appearance) Assessed, Maceration,Dry/ Scaly -Color (Susan-wound Skin Appearance) Assessed -Temperature (Susan-wound Skin No Abnormality Appearance) (Pt Warm) -Tenderness on Palpation (Susan-wound No Skin Appearance) -Ulcer Cleansing Soap and Water -Foul Odor after Cleansing No -Anesthetic Used 5% Lidocaine Gel Lower Limb Edema Present Yes Right Calf (cm) 35.5 Right Ankle (cm) 22 Left Calf (cm) 36.8 Left Ankle (cm) 23.6 WC - Nurse 2 - General Ulcer CM Notes Start: 12/11/21 09:27 Freq: Status: Active Protocol: Activity Type Activity Date Activity User E-sign Co-sign Detail Recorded Client Recorded Date Recorded By Document 12/11/21 10:07 LARRY [id number] 12/11/21 10:10 LARRY 12/11/21 10:07 Wound Center Nurse 2 #1- L PLANTAR -Time 10:09 -Correct Patient Yes -Correct Side, Site, Position Yes -Correct Procedure Yes -Procedure Performed Yes -Type of Procedure Debridement -Clinical Debridement Subcutaneous -Tissue Removed Subcutaneous -Post Debridement (cm) - Length 1.6 -Post Debridement (cm) - Width 1 -Post Debridement (cm) - Depth 0.9 -Total Square (Post) (cm) 1.6 -Area of Debridement (cm) - Length 1.6 -Area of Debridement (cm) - Width 1 -Total Square (Area) (cm) 1.6 -Tunneling No -Undermining/Tunneling No -Circular Undermining No -Wound/Ulcer Outcome Not Healed -Ulcer Cleansing Rinsed/ Irrigated with Saline -Foul Odor after Cleansing No -Bioengineered Tissue No -Bleeding Controlled with Pressure -Treatment Response Procedure Tolerated Well -Offloading Yes -Type of Offloading Surgical Shoe -Debridement - Subq, 1st 20sq cm Yes Pain Scale: 0-10 Numeric Is Patient Pain Free? Yes Assessment/Plan Assessment/Plan (1) Type 2 diabetes mellitus with diabetic polyneuropathy: CODE(S): E11.42 - Type 2 diabetes mellitus with diabetic polyneuropathy (2) Non-pressure chronic ulcer of other part of left foot with fat layer exposed: CODE(S): L97.522 - Non-pressure chronic ulcer of other part of left foot with fat layer exposed PLAN: Exam performed. No residual signs of infection, no antibiotics today. Arterial studies from inpatient stay late November demonstrated adequate arterial flow for wound healing status. Due to noncompliance with nonweightbearing and wound VAC. The plan has changed significantly. Patient should bear weight to his left heel assisted by a walker. Patient should limit ambulation to within his house for transfer purposes only. This should include trips to the bathroom or to the kitchen for food. Otherwise patient should maintain a low ambulatory status resting in a supine position with his leg elevated. We will discontinue his wound VAC due to noncompliance. Patient will get 3 times a week dressing changes with Dakin's DSD and Jalil wrap for compression Wound to left foot with was excisionally debrided down to including level of subcutaneous tissue of all nonviable tissue using 5 mm dermal curette. Hemostasis obtained with light compression. No anesthesia due to neuropathy. Patient tolerated procedure well patient consented procedure. Pre and post debridement measurements document nursing notes. Wound was dressed with Dakin's in wound care center today patient will follow up in 1 week. As wound becomes more superficial we will consider advanced wound care product such as epi fix grafting in total contact casting
[2021-12-18 09:12] VITALS: BP 126/67; PULSE 67; TEMP 36.2; BMI 41.7
--- NOTE | 2021-12-18 10:01 | PN.PCM_ITS ---
History of Present Illness Date of Service: 12/18/21 Progress of Wound: 81-year-old male underwent incision and drainage of deep abscess to left plantar foot on 11/30/2021. patient denies constitutional symptoms today. Pain was well controlled. Patient off antibiotics at this time he was discharged on Augmentin and ciprofloxacin. No residual signs of infection. Since the patient's discharge he has been ambulating on his left foot wound. Patient was discharged from senior care facility due to noncompliance with wound VAC and nonweightbearing. Patient presents today ambulating in normal shoe gear. Patient denies constitutional symptoms or signs of infection. No other complaints. Objective Data Objective Data Vital Signs: Vital Signs Temp Pulse Resp BP O2 Del Method 97.2 F L 67 16 126/67 H Room Air 12/18/21 09:12 12/18/21 09:12 12/11/21 09:28 12/18/21 09:12 12/11/21 09:28 Oxygen Delivery Method Room Air Weight: 100.244 kg Body Mass Index (BMI) 41.7 Physical Exam Narrative Patient AOx3. Neurovascular status unchanged from previous evaluation. Full-thickness wound granulating in well demonstrates good healing potential. Slightly increased in size with periwound callus noted. No residual residual signs of infection at this time. No pain with calf squeeze or palpation of popliteal fossa muscular strength full to bilateral lower extremity compartments. Debridement Note Debridement Note Post-Debridement Measurements and Additional Note: Post-Debridement Measurements/Treatment - Nurse 1 - General Ulcer Assessment Start: 12/11/21 09:27 Freq: Status: Active Protocol: KRISTY.LOWEXT Activity Type Activity Date Activity User E-sign Co-sign Detail Recorded Client Recorded Date Recorded By Document 12/11/21 09:28 [facility] [id number] 12/11/21 09:41 [facility] Document 12/18/21 09:12 [place] [id number] 12/18/21 09:22 [place] 12/11/21 12/18/21 09:28 09:12 - Today's Visit Information Type of service Initial Visit Follow-up Visit (Physician/DINKEY DISPATCHER ) Arrival Mode Ambulatory Ambulatory Transfer Assistance None Patient Identification Verified (Name & Yes Yes ) Patient Requires Transmission-Based No No Precautions Safety Precautions NA Height and Weight Height 5 ft 1 in Weight 100.244 kg Weight in Pounds 221.0 lbs Weight Measurement Method Stated by Patient Body Mass Index (BMI) 41.7 41.7 BMI Classification Obese Obese BSA - [place] 1.97 Vital Signs Temperature (97.8 F-99.1 F) 97.2 F L 97.2 F L Temperature Source Temporal Temporal Pulse Rate (60-100) 65 67 Pulse Location Monitor Respiratory Rate (12-18) 16 Respiratory rate source Observation Oxygen Delivery Method Room Air Blood Pressure (90/60-120/80) 132/67 H 126/67 H Blood Pressure Mean (mm Hg) 88 86 Source Monitor Monitor Position Sitting Blood Pressure Location Right Arm History Since Last Visit- (Skip if this is Patient's initial visit) Have you changed medications since your No last visit? Any new allergies or adverse reactions No Had a fall/change in ADL's that may No increase risk of falls Signs or symptoms of abuse and/or No neglect since last visit Have you been in the hospital since your No last visit? Has dressing in place as prescribed Yes Has compression in place as prescribed Yes Has offloadiing in place as prescribed N/A Experienced any changes in pain level or No management Left Footwear Surgical Shoe Regular Shoe with pressure relief insole Right Footwear Regular Shoe Regular Shoe Pain Scale: 0-10 Numeric Is Patient Pain Free? Yes Yes Communication Assessment Preferred language South Korean Network Cabler Required No Able to Read Yes Able to Write Yes Communication Tools None Right Hearing Abillity Hard of Hearing Left Hearing Abillity Hard of Hearing Visual Assistive Devices None Teaching Assessment Preferences Verbal,Written, Audio/Visual, Demonstration Barriers to Learning None Readiness To Learn Excellent Willingness to Engage in Self Management High Activies Readiness to Engage in Self Management High Activities Anxiety Level Calm Cooperation Cooperative Perception Coherent Interest in Health Problem Asks Questions Education Importance Acknowledges Need Does Patient Smoke tobacco or other No substances Is Patient Diabetic Yes Functional Assessment Recent Decline in Ability to Perform Ambulation Culture/Episcopal/Telemetry Registered Nurse Cultural/Episcopal Needs that may affect No Treatment Plan Teaching: Wound Center *Welcome to the Wound Center -Person Taught Patient -Teaching Method Discussion -Response to teaching Verbalize understanding Welcome to the Wound Care Center English WAGNER - Nurse 1 - General Ulcer Measurement Start: 12/11/21 09:27 Freq: Status: Active Protocol: Activity Type Activity Date Activity User E-sign Co-sign Detail Recorded Client Recorded Date Recorded By Document 12/11/21 09:28 BMF [id number] 12/11/21 09:41 [facility] Document 12/18/21 09:12 [place] [id number] 12/18/21 09:22 [place] 12/11/21 12/18/21 09:28 09:12 Wound Center Nurse 1 #1- L PLANTAR -Combined with other wound No No -Current Size (cm) - Length 1.6 1.5 -Current Size (cm) - Width 0.9 1 -Current Size (cm) - Depth 0.9 0.6 -Total Square Cm 1.44 1.5 -Date of Last Picture (Recall this 12/11/21 field) -Photo Taken Yes No -Epithelialization None Present -Tunneling No No -Undermining/Tunneling Yes No -Undermining/Tunneling Starts (O'clock 9 ) -Undermining/Tunneling Ends (O'clock) 3 -Maximum Distance (cm) 0.5 -Circular Undermining No No -Change in Wound Grade/Stage No -Exudate Amt Medium Medium -Exudate Type Serosanguineous Serosanguineous -Wound Margin Distinct, Distinct, Outline Outline Attached Attached -Granulation Amt Large (67-100%) Large (67-100%) -Granulation Quality [place] -Slough/Fibrin Yes Yes -Necrosis Amt Small (1-33%) Medium (34-66%) -Necrotic Tissue Type Adherent Slough Adherent Slough -Structure Exposed N/A -Texture (Susan-wound Skin Appearance) Assessed,Callus Assessed,Callus ,Scarring -Moisture (Susan-wound Skin Appearance) Assessed, No Abnormality Maceration,Dry/ Scaly -Color (Susan-wound Skin Appearance) Assessed Assessed -Temperature (Susan-wound Skin No Abnormality No Abnormality Appearance) (Pt Warm) (Pt Warm) -Tenderness on Palpation (Susan-wound No No Skin Appearance) -Ulcer Cleansing Soap and Water Rinsed/ Irrigated with Saline -Foul Odor after Cleansing No No -Anesthetic Used 5% Lidocaine 5% Lidocaine Gel Gel Lower Limb Edema Present Yes Right Calf (cm) 35.5 Right Ankle (cm) 22 Left Calf (cm) 36.8 Left Ankle (cm) 23.6 WC - Nurse 2 - General Ulcer CM Notes Start: 12/11/21 09:27 Freq: Status: Active Protocol: Activity Type Activity Date Activity User E-sign Co-sign Detail Recorded Client Recorded Date Recorded By Document 12/11/21 10:07 [id number] 12/11/21 10:10 Document 12/18/21 09:46 [id number] 12/18/21 09:51 12/11/21 12/18/21 10:07 09:46 Wound Center Nurse 2 #1- L PLANTAR -Time 10:09 09:47 -Correct Patient Yes Yes -Correct Side, Site, Position Yes Yes -Correct Procedure Yes Yes -Procedure Performed Yes Yes -Type of Procedure Debridement Debridement -Clinical Debridement Subcutaneous Subcutaneous -Tissue Removed Subcutaneous Subcutaneous -Post Debridement (cm) - Length 1.6 1.4 -Post Debridement (cm) - Width 1 1 -Post Debridement (cm) - Depth 0.9 1.6 -Total Square (Post) (cm) 1.6 1.4 -Area of Debridement (cm) - Length 1.6 1.4 -Area of Debridement (cm) - Width 1 1.0 -Total Square (Area) (cm) 1.6 1.40 -Tunneling No No -Undermining/Tunneling No No -Circular Undermining No No -Wound/Ulcer Outcome Not Healed Not Healed -Ulcer Cleansing Rinsed/ Rinsed/ Irrigated with Irrigated with Saline Saline -Foul Odor after Cleansing No No -Bioengineered Tissue No No -Bleeding Controlled with Pressure Pressure -Treatment Response Procedure Procedure Tolerated Well Tolerated Well -Offloading Yes No -Type of Offloading Surgical Shoe -Debridement - Subq, 1st 20sq cm Yes Yes Pain Scale: 0-10 Numeric Is Patient Pain Free? Yes Yes - Nurse 3 - General Ulcer D/C NN Start: 12/11/21 09:27 Freq: Status: Active Protocol: Activity Type Activity Date Activity User E-sign Co-sign Detail Recorded Client Recorded Date Recorded By Document 12/11/21 10:54 BROOKS [id number] 12/11/21 10:55 BROOKS 12/11/21 10:54 Wound Care Nurse 3 #1- L PLANTAR -Ulcer Cleansing Rinsed/ Irrigated with Saline -Foul Odor after Cleansing No -Negative Pressure Wound Therapy N/A -Other Dressing dakins -Primary Dressing Covered/Secured with Dry Gauze, Secured with Tape -Other Covering coban pt request Pain Scale: 0-10 Numeric Is Patient Pain Free? Yes WC - Visit Discharge Discharge Condition Stable Ambulatory Status Ambulatory Transportation Private Auto Medication Reconcilliation completed & Yes provided to patient/care provider Clinical Summary of Care Provided Yes Assessment/Plan Assessment/Plan (1) Type 2 diabetes mellitus with diabetic polyneuropathy: CODE(S): E11.42 - Type 2 diabetes mellitus with diabetic polyneuropathy (2) Non-pressure chronic ulcer of other part of left foot with fat layer exposed: CODE(S): L97.522 - Non-pressure chronic ulcer of other part of left foot with fat layer exposed PLAN: Exam performed. No residual signs of infection, no antibiotics today. Arterial studies from inpatient stay late November demonstrated adequate ar terial flow for wound healing status. Patient has been noncompliant with weightbearing restrictions and wound VAC since discharge from the hospital 2 weeks prior. Patient presents ambulating in normal shoe gear today. Due to noncompliant ambulatory status I recommended total contact casting patient refuses at this time. Wound to left foot with was excisionally debrided down to including level of subcutaneous tissue of all nonviable tissue using 5 mm dermal curette. Hemostasis obtained with light compression. No anesthesia due to neuropathy. Patient tolerated procedure well patient consented procedure. Pre and post debridement measurements document nursing notes. Today wound was dressed with Charlotte DSD and compression. Patient follow-up in 1 week.
--- NOTE | 2021-12-18 10:51 | WC ---
tcc removed shortly after application d/t poor tolerance. dr randall and cm aware. give n.o.'s for dakins daily.
[2021-12-25 09:14] VITALS: BP 133/74; PULSE 60; RESP 16; TEMP 35.9; BMI 41.7
--- NOTE | 2021-12-25 10:29 | PN.PCM_ITS ---
History of Present Illness Date of Service: 12/25/21 Progress of Wound: 81-year-old male underwent incision and drainage of deep abscess to left plantar foot on 11/30/2021. patient denies constitutional symptoms today. Pain was well controlled. Patient off antibiotics at this time he was discharged on Augmentin and ciprofloxacin. No residual signs of infection. Since the patient's discharge he has been ambulating on his left foot wound. Patient was discharged from [facility] facility due to noncompliance with wound VAC and nonweightbearing. Patient presents today ambulating in normal shoe gear. Patient denies constitutional symptoms or signs of infection. No other complaints. Patient has been completely noncompliant with weightbearing restrictions. Patient notes that he has been cutting his 5-day for prolonged on a weekly basis. Patient notes that he picked up leaves. Patient has been ambulating in regular shoe gear. Patient feels to understand purpose of offloading as he has neuropathy and does not feel any pain therefore does not recognize the importance of offloading. Objective Data Objective Data Vital Signs: Vital Signs Temp Pulse Resp BP O2 Del Method 96.7 F L 60 16 133/74 H Room Air 12/25/21 09:14 12/25/21 09:14 12/25/21 09:14 12/25/21 09:14 12/25/21 09:14 Oxygen Delivery Method Room Air Weight: 100.244 kg Body Mass Index (BMI) 41.7 Physical Exam Narrative Patient AOx3. Neurovascular status unchanged from previous evaluation. Full-thickness wound granulating in well demonstrates good healing potential. Slightly increased in size with periwound callus noted. No residual residual signs of infection at this time. No pain with calf squeeze or palpation of popliteal fossa muscular strength full to bilateral lower extremity compartments. Debridement Note Debridement Note Post-Debridement Measurements and Additional Note: Post-Debridement Measurements/Treatment WC - Nurse 1 - General Ulcer Assessment Start: 12/11/21 09:27 Freq: Status: Active Protocol: CAYLA Activity Type Activity Date Activity User E-sign Co-sign Detail Recorded Client Recorded Date Recorded By Document 12/11/21 09:28 BM [id number] 12/11/21 09:41 BMF Document 12/18/21 09:12 [place] [id number] 12/18/21 09:22 [place] Document 12/25/21 09:14 [facility] [id number] 12/25/21 09:25 [facility] 12/11/21 12/18/21 12/25/21 09:28 09:12 09:14 WC - Today's Visit Information Type of service Initial Visit Follow-up Visit Follow-up Visit (Physician/DIGITAL ASSOCIATE MEDIA DIRECTOR (Physician/DIGITAL ASSOCIATE MEDIA DIRECTOR ) ) Arrival Mode Ambulatory Ambulatory Ambulatory Transfer Assistance None None Patient Identification Verified (Name & Yes Yes Yes ) Patient Requires Transmission-Based No No No Precautions Safety Precautions NA Height and Weight Height 5 ft 1 in Weight 100.244 kg Weight in Pounds 221.0 lbs Weight Measurement Method Stated by Patient Body Mass Index (BMI) 41.7 41.7 41.7 BMI Classification Obese Obese Obese BSA - [place] 1.97 Vital Signs Temperature (97.8 F-99.1 F) 97.2 F L 97.2 F L 96.7 F L Temperature Source Temporal Temporal Temporal Pulse Rate (60-100) 65 67 60 Pulse Location Monitor Monitor Respiratory Rate (12-18) 16 16 Respiratory rate source Observation Observation Oxygen Delivery Method Room Air Room Air Blood Pressure (90/60-120/80) 132/67 H 126/67 H 133/74 H Blood Pressure Mean (mm Hg) 88 86 93 Source Monitor Monitor Monitor Position Sitting Sitting Blood Pressure Location Right Arm Left Arm History Since Last Visit- (Skip if this is Patient's initial visit) Have you changed medications since your No No last visit? Any new allergies or adverse reactions No No Had a fall/change in ADL's that may No No increase risk of falls Signs or symptoms of abuse and/or No No neglect since last visit Have you been in the hospital since your No No last visit? Has dressing in place as prescribed Yes Yes Has compression in place as prescribed Yes N/A Has offloadiing in place as prescribed N/A No Experienced any changes in pain level or No No management Left Footwear Surgical Shoe Regular Shoe Regular Shoe with pressure relief insole Right Footwear Regular Shoe Regular Shoe Regular Shoe Pain Scale: 0-10 Numeric Is Patient Pain Free? Yes Yes Yes Communication Assessment Preferred language Palestinian Motor Vehicle Inspector Required No Able to Read Yes Able to Write Yes Communication Tools None Right Hearing Abillity Hard of Hearing Left Hearing Abillity Hard of Hearing Visual Assistive Devices None Teaching Assessment Preferences Verbal,Written, Audio/Visual, Demonstration Barriers to Learning None Readiness To Learn Excellent Willingness to Engage in Self Management High Activies Readiness to Engage in Self Management High Activities Anxiety Level Calm Cooperation Cooperative Perception Coherent Interest in Health Problem Asks Questions Education Importance Acknowledges Need Does Patient Smoke tobacco or other No substances Is Patient Diabetic Yes Functional Assessment Recent Decline in Ability to Perform Ambulation Culture/Yarsanism/Sap Abap Developer Cultural/Yarsanism Needs that may affect No Treatment Plan Teaching: Wound Center *Welcome to the Wound Center -Person Taught Patient -Teaching Method Discussion -Response to teaching Verbalize understanding Welcome to the Wound Care Center Palestinian WC - Nurse 1 - General Ulcer Measurement Start: 12/11/21 09:27 Freq: Status: Active Protocol: Activity Type Activity Date Activity User E-sign Co-sign Detail Recorded Client Recorded Date Recorded By Document 12/11/21 09:28 [facility] [id number] 12/11/21 09:41 [facility] Document 12/18/21 09:12 [place] [id number] 12/18/21 09:22 [place] Document 12/25/21 09:14 [facility] [id number] 12/25/21 09:25 [facility] 12/11/21 12/18/21 12/25/21 09:28 09:12 09:14 Wound Center Nurse 1 #1- L PLANTAR -Combined with other wound No No No -Current Size (cm) - Length 1.6 1.5 1.4 -Current Size (cm) - Width 0.9 1 0.9 -Current Size (cm) - Depth 0.9 0.6 0.5 -Total Square Cm 1.44 1.5 1.26 -Date of Last Picture (Recall this 12/11/21 12/25/21 field) -Photo Taken Yes No Yes -Epithelialization None Present None Present -Tunneling No No No -Undermining/Tunneling Yes No Yes -Undermining/Tunneling Starts (O'clock 9 7 ) -Undermining/Tunneling Ends (O'clock) 3 5 -Maximum Distance (cm) 0.5 0.5 -Circular Undermining No No No -Change in Wound Grade/Stage No -Exudate Amt Medium Medium Large -Exudate Type Serosanguineous Serosanguineous Serosanguineous -Wound Margin Distinct, Distinct, Distinct, Outline Outline Outline Attached Attached Attached -Granulation Amt Large (67-100%) Large (67-100%) Medium (34-66%) -Granulation Quality [place] -Slough/Fibrin Yes Yes Yes -Necrosis Amt Small (1-33%) Medium (34-66%) Small (1-33%) -Necrotic Tissue Type Adherent Slough Adherent Slough Adherent Slough -Structure Exposed N/A -Texture (Susan-wound Skin Appearance) Assessed,Callus Assessed,Callus Assessed,Callus ,Scarring ,Scarring -Moisture (Susan-wound Skin Appearance) Assessed, No Abnormality Assessed,Dry/ Maceration,Dry/ Scaly Scaly -Color (Susan-wound Skin Appearance) Assessed Assessed Assessed -Temperature (Susan-wound Skin No Abnormality No Abnormality No Abnormality Appearance) (Pt Warm) (Pt Warm) (Pt Warm) -Tenderness on Palpation (Suasn-wound No No No Skin Appearance) -Ulcer Cleansing Soap and Water Rinsed/ Soap and Water Irrigated with Saline -Foul Odor after Cleansing No No No -Anesthetic Used 5% Lidocaine 5% Lidocaine 5% Lidocaine Gel Gel Gel Lower Limb Edema Present Yes Right Calf (cm) 35.5 Right Ankle (cm) 22 Left Calf (cm) 36.8 Left Ankle (cm) 23.6 WC - Nurse 2 - General Ulcer CM Notes Start: 12/11/21 09:27 Freq: Status: Active Protocol: Activity Type Activity Date Activity User E-sign Co-sign Detail Recorded Client Recorded Date Recorded By Document 12/11/21 10:07 [id number] 12/11/21 10:10 Document 12/18/21 09:46 [id number] 12/18/21 09:51 Document 12/25/21 10:18 [id number] 12/25/21 10:22 12/11/21 12/18/21 12/25/21 10:07 09:46 10:18 Wound Center Nurse 2 #1- L PLANTAR -Time 10:09 09:47 10:19 -Correct Patient Yes Yes Yes -Correct Side, Site, Position Yes Yes Yes -Correct Procedure Yes Yes Yes -Procedure Performed Yes Yes Yes -Type of Procedure Debridement Debridement Debridement -Clinical Debridement Subcutaneous Subcutaneous Subcutaneous -Tissue Removed Subcutaneous Subcutaneous Subcutaneous -Post Debridement (cm) - Length 1.6 1.4 1.7 -Post Debridement (cm) - Width 1 1 1.2 -Post Debridement (cm) - Depth 0.9 1.6 1.0 -Total Square (Post) (cm) 1.6 1.4 2.04 -Area of Debridement (cm) - Length 1.6 1.4 1.7 -Area of Debridement (cm) - Width 1 1.0 1.2 -Total Square (Area) (cm) 1.6 1.40 2.04 -Tunneling No No No -Undermining/Tunneling No No No -Circular Undermining No No No -Wound/Ulcer Outcome Not Healed Not Healed Not Healed -Ulcer Cleansing Rinsed/ Rinsed/ Rinsed/ Irrigated with Irrigated with Irrigated with Saline Saline Saline -Foul Odor after Cleansing No No No -Bioengineered Tissue No No No -Bleeding Controlled with Pressure Pressure Pressure -Treatment Response Procedure Procedure Procedure Tolerated Well Tolerated Well Tolerated Well -Offloading Yes No Yes -Type of Offloading Surgical Shoe Surgical Shoe -Debridement - Subq, 1st 20sq cm Yes Yes Yes Pain Scale: 0-10 Numeric Is Patient Pain Free? Yes Yes Yes - Nurse 3 - General Ulcer D/C NN Start: 12/11/21 09:27 Freq: Status: Active Protocol: Activity Type Activity Date Activity User E-sign Co-sign Detail Recorded Client Recorded Date Recorded By Document 12/11/21 10:54 BROOKS [id number] 12/11/21 10:55 [place] Document 12/18/21 10:06 BROOKS [id number] 12/18/21 10:07 [place] 12/11/21 12/18/21 10:54 10:06 Wound Care Nurse 3 #1- L PLANTAR -Ulcer Cleansing Rinsed/ Rinsed/ Irrigated with Irrigated with Saline Saline -Foul Odor after Cleansing No No -Negative Pressure Wound Therapy N/A N/A -Primary Dressing Applied Promogran Charlotte Matter -Other Dressing dakins AMD -Primary Dressing Covered/Secured with Dry Gauze, Dry Gauze & Secured with Roll Gauze, Tape Secured with Tape -Other Covering coban pt size 3 TCC by request yasmani -Promogran [place] Matter 1 Pain Scale: 0-10 Numeric Is Patient Pain Free? Yes Yes - Visit Discharge Discharge Condition Stable Stable Ambulatory Status Ambulatory Transportation Private Auto Private Auto Medication Reconcilliation completed & Yes Yes provided to patient/care provider Clinical Summary of Care Provided Yes Yes Assessment/Plan Assessment/Plan (1) Type 2 diabetes mellitus with diabetic polyneuropathy: CODE(S): E11.42 - Type 2 diabetes mellitus with diabetic polyneuropathy (2) Non-pressure chronic ulcer of other part of left foot with fat layer exposed: CODE(S): L97.522 - Non-pressure chronic ulcer of other part of left foot with fat layer exposed PLAN: Exam performed. Wound virtually unchanged, or worse. No concern for infection. Patient noncompliant with treatment specifically weightbearing restrictions. Realistically patient should be completely nonweightbearing. 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 Patient is instructed to bear weight mainly through the heel. Patient instructed to limit weightbearing to around the house for transfer purposes to bathroom kitchen etc. Wound to left foot with was excisionally debrided down to including level of subcutaneous tissue of all nonviable tissue using 5 mm dermal curette. Hemostasis obtained with light compression. No anesthesia due to neuropathy. Patient tolerated procedure well patient consented procedure. Pre and post debridement measurements document nursing notes. Today wound was dressed with Charlotte DSD and compression. Patient follow-up in 1 week.
== END 2021-12-31 23:59 | disposition home or self-care (01) ==
LOC: WC 10:15
PROVIDERS: PCP Family Medicine; Visit Provider Podiatrist
DX: E11.621 Type 2 diabetes mellitus with foot ulcer (principal); E11.51 Type 2 diabetes mellitus with diabetic peripheral angiopathy without gangrene; L97.522 Non-pressure chronic ulcer of other part of left foot with fat layer exposed; E11.42 Type 2 diabetes mellitus with diabetic polyneuropathy; Z79.4 Long term (current) use of insulin; I10 Essential (primary) hypertension; I25.10 Atherosclerotic heart disease of native coronary artery without angina pectoris; E78.5 Hyperlipidemia, unspecified
CPT/HCPCS: 11042; 99213; G0463

== ENCOUNTER → 2022-01-10 | Outpatient (CLI) | payer MEDICARE, SELFPAY ==
[2022-01-10 09:07] LABS: Hematocrit 35.9 % (40-54); Hemoglobin 11.6 g/dL (13.0-16.5); Mean Corp Hgb Conc 32.3 g/dL (32-36); Mean Corpuscular Volume 86.7 fL (80-94); Mean Platelet Vol. 8.9 fl (6.2-12.0); Platelet Count 305 K/mm3 (150-450); RBC Distribution Width CV 12.2 % (11.6-14.6); RBC Distribution Width SD 39.2 fl (35.1-43.9); Red Blood Count 4.14 M/mm3 (4.6-6.2); White Blood Count 9.7 K/mm3 (4.4-11.0)
[2022-01-10 09:33] LABS: PTHIN 98.8 pg/mL (18.4-80.1)
[2022-01-10 10:09] LABS: 24 Hour Urine Protein 556.6 mg/24HR (<150 MG/24HR); 24HR. UA Prot. Total Volume 1525 mL; Urine Protein (24 Hour) 36.5 mg/dL (<11.9)
[2022-01-10 10:28] LABS: Albumin, Serum 2.8 g/dL (3.2-5.0); BUN 26 mg/dL (7-18); BUN/Creat Ratio 14.3 RATIO (10-20); Calcium,Total 9.1 mg/dL (8.5-10.1); Chloride 105 mmol/L (98-107); Creatinine, Serum 1.82 mg/dL (0.70-1.30); EST Glomerular Filtration Rate 38 mL/min (>60); Est Glom Filt Rate - Afr Amer 46 mL/min (>60); Glucose 154 mg/dL (74-106); Phosphorus 2.7 mg/dL (2.5-4.9); Potassium 4.1 mmol/L (3.5-5.1); Sodium Level 138 mmol/L (136-145)
[2022-01-10 10:45] LABS: Creat.Clear Total Volume 1525 mL; Creatinine Clearance 8 ml/min (100-200); Creatinine Serum Creat 1.8 mg/dL (0.8-1.3); Creatinine Urine < 13.0 mg/dL (NO RANGE EST.); EST Glomerular Filtration Rate 38 mL/min (>60); Est Glom Filt Rate - Afr Amer 46 mL/min (>60)
== END | disposition home or self-care (01) ==
LOC: LAB 08:37
PROVIDERS: PCP Family Medicine; Visit Provider Internal Medicine Nephrology
DX: N17.9 Acute kidney failure, unspecified (principal)
CPT/HCPCS: 36415; 80069; 81050; 82575; 83970; 84156; 85027

== ENCOUNTER → 2022-01-16 | Outpatient (CLI) | payer MEDICARE, SELFPAY | END | disposition home or self-care (01) | LOC: LABSPEC 16:54 | PROVIDERS: PCP Family Medicine; Visit Provider Internal Medicine Nephrology | DX: N17.9 Acute kidney failure, unspecified (principal) | CPT/HCPCS: 82570 ==

== ENCOUNTER 2022-01-29 09:45 | Outpatient (RCR) | payer MEDICARE, SELFPAY ==
[2022-01-01 00:40] VITALS: BP 133/74; PULSE 60; RESP 16; TEMP 35.9; BMI 41.7
--- NOTE | 2022-01-01 11:06 | PCM.WC.PN ---
History of Present Illness Date of Service: 01/01/22 Progress of Wound: 81-year-old male underwent incision and drainage of deep abscess to left plantar foot on 11/30/2021. patient denies constitutional symptoms today. Pain was well controlled. Patient off antibiotics at this time he was discharged on Augmentin and ciprofloxacin. No residual signs of infection. Since the patient's discharge he has been ambulating on his left foot wound. Patient was discharged from senior living facility due to noncompliance with wound VAC and nonweightbearing. Patient presents today ambulating in normal shoe gear. Patient denies constitutional symptoms or signs of infection. No other complaints. Patient has been completely noncompliant with weightbearing restrictions. Patient notes that he has been cutting his 5-day for prolonged on a weekly basis. Patient notes that he picked up leaves. Patient has been ambulating in regular shoe gear. Patient feels to understand purpose of offloading as he has neuropathy and does not feel any pain therefore does not recognize the importance of offloading. Objective Data Objective Data Vital Signs: Vital Signs Temp Pulse Resp BP 96.7 F L 60 16 133/74 H 01/01/22 00:40 01/01/22 00:40 01/01/22 00:40 01/01/22 00:40 Weight: 100.244 kg Body Mass Index (BMI) 41.7 Physical Exam Narrative Patient AOx3. Neurovascular status unchanged from previous evaluation. Full-thickness wound granulating in well demonstrates good healing potential. Slightly increased in size with periwound callus noted. Increased erythema edema and warmth to the periwound area. Concerning for cellulitis. No pain with calf squeeze or palpation of popliteal fossa muscular strength full to bilateral lower extremity compartments. Assessment/Plan Assessment/Plan (1) Type 2 diabetes mellitus with diabetic polyneuropathy: CODE(S): E11.42 - Type 2 diabetes mellitus with diabetic polyneuropathy (2) Non-pressure chronic ulcer of other part of left foot with fat layer exposed: CODE(S): L97.522 - Non-pressure chronic ulcer of other part of left foot with fat layer exposed PLAN: Exam performed. Wound virtually unchanged, or worse. New onset cellulitis. Rx for doxycycline and ciprofloxacin ordered. Patient noncompliant with treatment specifically weightbearing restrictions. Realistically patient should be completely nonweightbearing. 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 Patient is instructed to bear weight mainly through the heel. Patient instructed to limit weightbearing to around the house for transfer purposes to bathroom kitchen etc. Wound to left foot with was excisionally debrided down to including level of subcutaneous tissue of all nonviable tissue using 5 mm dermal curette. Hemostasis obtained with light compression. No anesthesia due to neuropathy. Patient tolerated procedure well patient consented procedure. Pre and post debridement measurements document nursing notes. Wound cultured we will continue Dakin's every third day performed by home health care dressing changes and asked for the third dressing of the week. Patient follow-up in 1 week.
[2022-01-01 11:20] VITALS: BP 124/59; PULSE 69; TEMP 36.2; BMI 41.7
[2022-01-08 09:40] VITALS: BP 135/65; PULSE 57; RESP 16; TEMP 36.1; BMI 41.7
--- NOTE | 2022-01-08 10:46 | PN.PCM_ITS ---
History of Present Illness Date of Service: 01/08/22 Progress of Wound: 81-year-old male underwent incision and drainage of deep abscess to left plantar foot on 11/30/2021. patient denies constitutional symptoms today. Pain was well controlled. Patient off antibiotics at this time he was discharged on Augmentin and ciprofloxacin. No residual signs of infection. Since the patient's discharge he has been ambulating on his left foot wound. Patient was discharged from long-term facility due to noncompliance with wound VAC and nonweightbearing. Patient presents today ambulating in normal shoe gear. Patient denies constitutional symptoms or signs of infection. No other complaints. Patient has been completely noncompliant with weightbearing restrictions. Patient notes that he has been cutting his 5-day for prolonged on a weekly basis. Patient notes that he picked up leaves. Patient has been ambulating in regular shoe gear. Patient feels to understand purpose of offloading as he has neuropathy and does not feel any pain therefore does not recognize the importance of offloading. Objective Data Objective Data Vital Signs: Vital Signs Temp Pulse Resp BP O2 Del Method 96.9 F L 57 L 16 135/65 H Room Air 01/08/22 09:40 01/08/22 09:40 01/08/22 09:40 01/08/22 09:40 01/08/22 09:40 Oxygen Delivery Method Room Air Weight: 100.244 kg Body Mass Index (BMI) 41.7 Lab / Micro Data Micro: Microbiology 01/01/22 11:02 Wound Abcess - Left Foot Gram Stain - Final 01/01/22 11:02 Wound Abcess - Left Foot Wound Culture - Preliminary Moraxella group Stenotrophomonas maltophilia Staphylococcus lugdunensis Staphylococcus epidermidis 01/01/22 11:02 Wound Abcess - Left Foot Anaerobic Culture - Final No anaerobic bacteria isolated. Physical Exam Narrative Patient AOx3. Neurovascular status unchanged from previous evaluation. Full-thickness wound granulating in well demonstrates good healing potential. Slightly increased in size with periwound callus noted. Increased erythema edema and warmth to the periwound area. Concerning for cellulitis. No pain with calf squeeze or palpation of popliteal fossa muscular strength full to bilateral lower extremity compartments. Debridement Note Debridement Note Post-Debridement Measurements and Additional Note: Post-Debridement Measurements/Treatment WC - Nurse 1 - General Ulcer Assessment Start: 01/01/22 10:58 Freq: Status: Active Protocol: CAYLA Activity Type Activity Date Activity User E-sign Co-sign Detail Recorded Client Recorded Date Recorded By Document 01/01/22 11:20 BROOKS [id number] 01/01/22 11:21 [place] Document 01/08/22 09:40 [facility] [id number] 01/08/22 09:49 BM 01/01/22 01/08/22 11:20 09:40 - Today's Visit Information Type of service Follow-up Visit Follow-up Visit (Physician/ORDER ANALYST (Physician/ORDER ANALYST ) ) Arrival Mode Ambulatory Ambulatory Transfer Assistance None Patient Identification Verified (Name & Yes Yes ) Patient Requires Transmission-Based No No Precautions Safety Precautions NA Height and Weight Body Mass Index (BMI) 41.7 41.7 BMI Classification Obese Obese Vital Signs Temperature (97.8 F-99.1 F) 97.2 F L 96.9 F L Temperature Source Temporal Temporal Pulse Rate (60-100) 69 57 L Pulse Location Monitor Monitor Respiratory Rate (12-18) 16 Respiratory rate source Observation Oxygen Delivery Method Room Air Blood Pressure (90/60-120/80) 124/59 H 135/65 H Blood Pressure Mean (mm Hg) 80 88 Source Monitor Monitor Position Sitting Blood Pressure Location Right Arm History Since Last Visit- (Skip if this is Patient's initial visit) Have you changed medications since your No No last visit? Any new allergies or adverse reactions No No Had a fall/change in ADL's that may No No increase risk of falls Signs or symptoms of abuse and/or No No neglect since last visit Have you been in the hospital since your No No last visit? Has dressing in place as prescribed Yes Yes Has compression in place as prescribed N/A N/A Has offloadiing in place as prescribed N/A Yes Experienced any changes in pain level or No No management Left Footwear Surgical Shoe Surgical Shoe with pressure with pressure relief insole relief insole Right Footwear Regular Shoe Regular Shoe Pain Scale: 0-10 Numeric Is Patient Pain Free? No Yes - Nurse 1 - General Ulcer Measurement Start: 01/01/22 10:58 Freq: Status: Active Protocol: Activity Type Activity Date Activity User E-sign Co-sign Detail Recorded Client Recorded Date Recorded By Document 01/01/22 11:20 BROOKS [id number] 01/01/22 11:21 [place] Document 01/08/22 09:40 [facility] [id number] 01/08/22 09:49 [facility] 01/01/22 01/08/22 11:20 09:40 Wound Center Nurse 1 #1- L PLANTAR -Combined with other wound No No -Current Size (cm) - Length 1.6 1.7 -Current Size (cm) - Width 1 1.3 -Current Size (cm) - Depth 0.5 1.2 -Total Square Cm 1.6 2.21 -Photo Taken Yes -Epithelialization Small 1-33% -Tunneling No No -Undermining/Tunneling No Yes -Undermining/Tunneling Starts (O'clock 12 ) -Undermining/Tunneling Ends (O'clock) 12 -Maximum Distance (cm) 0.6 -Circular Undermining No Yes -Change in Wound Grade/Stage No -Exudate Amt Medium Large -Exudate Type Serosanguineous Serosanguineous -Wound Margin Distinct, Distinct, Outline Outline Attached Attached -Granulation Amt Small (1-33%) Large (67-100%) -Granulation Quality N/A Red -Slough/Fibrin Yes Yes -Necrosis Amt Small (1-33%) Small (1-33%) -Necrotic Tissue Type Adherent Slough Adherent Slough -Structure Exposed N/A -Texture (Susan-wound Skin Appearance) No Abnormality, Assessed,Callus Assessed ,Scarring -Moisture (Susan-wound Skin Appearance) No Abnormality, Assessed Assessed -Color (Susan-wound Skin Appearance) No Abnormality, Assessed Assessed -Temperature (Susan-wound Skin No Abnormality No Abnormality Appearance) (Pt Warm) (Pt Warm) -Tenderness on Palpation (Susan-wound No No Skin Appearance) -Ulcer Cleansing Soap and Water Soap and Water -Foul Odor after Cleansing No Yes, Due to Product Use -Anesthetic Used 5% Lidocaine 5% Lidocaine Gel Gel WC - Nurse 2 - General Ulcer CM Notes Start: 01/01/22 10:58 Freq: Status: Active Protocol: Activity Type Activity Date Activity User E-sign Co-sign Detail Recorded Client Recorded Date Recorded By Document 01/01/22 11:07 LARRY [id number] 01/01/22 11:09 Document 01/08/22 10:09 [id number] 01/08/22 10:12 JF 01/01/22 01/08/22 11:07 10:09 Wound Center Nurse 2 #1- L PLANTAR -Time 11: 10:09 -Correct Patient Yes Yes -Correct Side, Site, Position Yes Yes -Correct Procedure Yes Yes -Procedure Performed Yes Yes -Type of Procedure Debridement Debridement -Clinical Debridement Subcutaneous Subcutaneous -Tissue Removed Subcutaneous Subcutaneous -Post Debridement (cm) - Length 1.6 2.0 -Post Debridement (cm) - Width 1.0 1.5 -Post Debridement (cm) - Depth 1.0 1.2 -Total Square (Post) (cm) 1.60 3.00 -Area of Debridement (cm) - Length 1.6 2.0 -Area of Debridement (cm) - Width 1 1.5 -Total Square (Area) (cm) 1.6 3.00 -Tunneling No No -Undermining/Tunneling No No -Circular Undermining No No -Wound/Ulcer Outcome Not Healed Not Healed -Ulcer Cleansing Rinsed/ Rinsed/ Irrigated with Irrigated with Saline Saline -Foul Odor after Cleansing No No -Bioengineered Tissue No No -Bleeding Controlled with Pressure Pressure -Treatment Response Procedure Procedure Tolerated Well Tolerated Well -Offloading Yes Yes -Type of Offloading Surgical Shoe Surgical Shoe -Debridement - Subq, 1st 20sq cm Yes Yes Pain Scale: 0-10 Numeric Is Patient Pain Free? Yes Yes - Nurse 3 - General Ulcer D/C NN Start: 01/01/22 10:58 Freq: Status: Active Protocol: Activity Type Activity Date Activity User E-sign Co-sign Detail Recorded Client Recorded Date Recorded By Document 01/01/22 11:20 [facility] [id number] 01/01/22 11:21 [facility] Document 01/08/22 10:23 [place] [id number] 01/08/22 10:26 [place] 01/01/22 01/08/22 11:20 10:23 Wound Care Nurse 3 #1- L PLANTAR -Ulcer Cleansing Rinsed/ Rinsed/ Irrigated with Irrigated with Saline Saline -Foul Odor after Cleansing No No -Other Dressing DAKINS MOIST dakins moist GAUZE gauze -Primary Dressing Covered/Secured with Dry Gauze & Dry Gauze & Roll Gauze, Roll Gauze, Secured with Secured with Tape Tape -Other Covering ABD Treatment Response Procedure Procedure Tolerated Well Tolerated Well Pain Scale: 0-10 Numeric Is Patient Pain Free? Yes Yes WC - Visit Discharge Discharge Condition Stable Stable Ambulatory Status Ambulatory Ambulatory Transportation Private Auto Private Auto Assessment/Plan Assessment/Plan (1) Type 2 diabetes mellitus with diabetic polyneuropathy: CODE(S): E11.42 - Type 2 diabetes mellitus with diabetic polyneuropathy (2) Non-pressure chronic ulcer of other part of left foot with fat layer exposed: CODE(S): L97.522 - Non-pressure chronic ulcer of other part of left foot with fat layer exposed PLAN: Exam performed. Wound virtually unchanged, or worse. Cellulitis resolving. Patient will continue doxycycline and ciprofloxacin. Patient noncompliant with treatment specifically weightbearing restrictions. Today surgical shoe wound was read modified with offloading pad to offload the fourth metatarsal head at the site of ulceration. Patient to be heel weightbe aring in surgical shoe. Realistically patient should be completely nonweightbearing. 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 Patient is instructed to bear weight mainly through the heel. Patient instructed to limit weightbearing to around the house for transfer purposes to bathroom kitchen etc. Wound to left foot with was excisionally debrided down to including level of subcutaneous tissue of all nonviable tissue using 5 mm dermal curette. Hemostasis obtained with light compression. No anesthesia due to neuropathy. Patient tolerated procedure well patient consented procedure. Pre and post debridement measurements document nursing notes. Wound cultured we will continue Dakin's every third day performed by home health care dressing changes and asked for the third dressing of the week. Patient follow-up in 1 week.
[2022-01-15 09:24] VITALS: BP 136/57; PULSE 65; RESP 16; TEMP 35.9; BMI 41.7
--- NOTE | 2022-01-15 09:53 | PCM.WC.PN ---
History of Present Illness Date of Service: 01/15/22 Progress of Wound: 81-year-old male underwent incision and drainage of deep abscess to left plantar foot on 11/30/2021. patient denies constitutional symptoms today. Pain was well controlled. Patient off antibiotics at this time he was discharged on Augmentin and ciprofloxacin. No residual signs of infection. Since the patient's discharge he has been ambulating on his left foot wound. Patient was discharged from nursing home facility due to noncompliance with wound VAC and nonweightbearing. Patient presents today ambulating in normal shoe gear. Patient denies constitutional symptoms or signs of infection. No other complaints. Patient has been completely noncompliant with weightbearing restrictions. Patient notes that he has been cutting his 5-day for prolonged on a weekly basis. Patient notes that he picked up leaves. Patient has been ambulating in regular shoe gear. Patient feels to understand purpose of offloading as he has neuropathy and does not feel any pain therefore does not recognize the importance of offloading. Objective Data Objective Data Vital Signs: Vital Signs Temp Pulse Resp BP O2 Del Method 96.7 F L 65 16 136/57 H Room Air 01/15/22 09:24 01/15/22 09:24 01/15/22 09:24 01/15/22 09:24 01/15/22 09:24 Oxygen Delivery Method Room Air Weight: 100.244 kg Body Mass Index (BMI) 41.7 Lab / Micro Data Micro: Microbiology 01/01/22 11:02 Wound Abcess - Left Foot Gram Stain - Final 01/01/22 11:02 Wound Abcess - Left Foot Wound Culture - Final Moraxella group Stenotrophomonas maltophilia Staphylococcus lugdunensis Staphylococcus epidermidis 01/01/22 11:02 Wound Abcess - Left Foot Anaerobic Culture - Final No anaerobic bacteria isolated. Physical Exam Narrative Patient AOx3. Neurovascular status unchanged from previous evaluation. Full-thickness wound granulating in well demonstrates good healing potential. Slightly increased in size with periwound callus noted. Increased erythema edema and warmth to the periwound area. Concerning for cellulitis. No pain with calf squeeze or palpation of popliteal fossa muscular strength full to bilateral lower extremity compartments. Debridement Note Debridement Note Post-Debridement Measurements and Additional Note: Post-Debridement Measurements/Treatment WC - Nurse 1 - General Ulcer Assessment Start: 11/01/22 10:58 Freq: Status: Active Protocol: WC.LOWEXT Activity Type Activity Date Activity User E-sign Co-sign Detail Recorded Client Recorded Date Recorded By Document 01/01/22 11:20 [place] [id number] 01/01/22 11:21 AK Document 01/08/22 09:40 [facility] [id number] 01/08/22 09:49 BM Document 01/15/22 09:24 [facility] [id number] 01/15/22 09:33 [facility] 01/01/22 01/08/22 01/15/22 11:20 09:40 09:24 - Today's Visit Information Type of service Follow-up Visit Follow-up Visit Follow-up Visit (Physician/RUG INSPECTOR (Physician/RUG INSPECTOR (Physician/RUG INSPECTOR ) ) ) Arrival Mode Ambulatory Ambulatory Ambulatory Transfer Assistance None None Patient Identification Verified (Name & Yes Yes Yes ) Patient Requires Transmission-Based No No No Precautions Safety Precautions NA Height and Weight Body Mass Index (BMI) 41.7 41.7 41.7 BMI Classification Obese Obese Obese Vital Signs Temperature (97.8 F-99.1 F) 97.2 F L 96.9 F L 96.7 F L Temperature Source Temporal Temporal Temporal Pulse Rate (60-100) 69 57 L 65 Pulse Location Monitor Monitor Monitor Respiratory Rate (12-18) 16 16 Respiratory rate source Observation Observation Oxygen Delivery Method Room Air Room Air Blood Pressure (90/60-120/80) 124/59 H 135/65 H 136/57 H Blood Pressure Mean (mm Hg) 80 88 83 Source Monitor Monitor Monitor Position Sitting Sitting Blood Pressure Location Right Arm Right Arm History Since Last Visit- (Skip if this is Patient's initial visit) Have you changed medications since your No No No last visit? Any new allergies or adverse reactions No No No Had a fall/change in ADL's that may No No No increase risk of falls Signs or symptoms of abuse and/or No No No neglect since last visit Have you been in the hospital since your No No No last visit? Has dressing in place as prescribed Yes Yes Yes Has compression in place as prescribed N/A N/A N/A Has offloadiing in place as prescribed N/A Yes Yes Experienced any changes in pain level or No No No management Left Footwear Surgical Shoe Surgical Shoe Surgical Shoe with pressure with pressure with pressure relief insole relief insole relief insole Right Footwear Regular Shoe Regular Shoe Regular Shoe Pain Scale: 0-10 Numeric Is Patient Pain Free? No Yes Yes WC - Nurse 1 - General Ulcer Measurement Start: 01/01/22 10:58 Freq: Status: Active Protocol: Activity Type Activity Date Activity User E-sign Co-sign Detail Recorded Client Recorded Date Recorded By Document 01/01/22 11:20 AK [id number] 01/01/22 11:21 AK Document 01/08/22 09:40 [facility] [id number] 01/08/22 09:49 BM Document 01/15/22 09:24 [facility] [id number] 01/15/22 09:33 BMF 01/01/22 01/08/22 01/15/22 11:20 09:40 09:24 Wound Center Nurse 1 #1- L PLANTAR -Combined with other wound No No No -Current Size (cm) - Length 1.6 1.7 2 -Current Size (cm) - Width 1 1.3 0.9 -Current Size (cm) - Depth 0.5 1.2 0.5 -Total Square Cm 1.6 2.21 1.8 -Date of Last Picture (Recall this 01/15/22 field) -Photo Taken Yes No -Epithelialization Small 1-33% Small 1-33% -Tunneling No No No -Undermining/Tunneling No Yes Yes -Undermining/Tunneling Starts (O'clock 12 10 ) -Undermining/Tunneling Ends (O'clock) 12 4 -Maximum Distance (cm) 0.6 0.4 -Circular Undermining No Yes No -Change in Wound Grade/Stage No -Exudate Amt Medium Large Medium -Exudate Type Serosanguineous Serosanguineous Serosanguineous -Wound Margin Distinct, Distinct, Distinct, Outline Outline Outline Attached Attached Attached -Granulation Amt Small (1-33%) Large (67-100%) Large (67-100%) -Granulation Quality N/A Red Pale,Red -Slough/Fibrin Yes Yes Yes -Necrosis Amt Small (1-33%) Small (1-33%) Small (1-33%) -Necrotic Tissue Type Adherent Slough Adherent Slough Adherent Slough -Structure Exposed N/A -Texture (Susan-wound Skin Appearance) No Abnormality, Assessed,Callus Assessed,Callus Assessed ,Scarring ,Scarring -Moisture (Susan-wound Skin Appearance) No Abnormality, Assessed Assessed,Dry/ Assessed Scaly -Color (Susan-wound Skin Appearance) No Abnormality, Assessed Assessed Assessed -Temperature (Susan-wound Skin No Abnormality No Abnormality No Abnormality Appearance) (Pt Warm) (Pt Warm) (Pt Warm) -Tenderness on Palpation (Susan-wound No No No Skin Appearance) -Ulcer Cleansing Soap and Water Soap and Water Rinsed/ Irrigated with Saline -Foul Odor after Cleansing No Yes, Due to No Product Use -Anesthetic Used 5% Lidocaine 5% Lidocaine 5% Lidocaine Gel Gel Gel WC - Nurse 2 - General Ulcer CM Notes Start: 01/01/22 10:58 Freq: Status: Active Protocol: Activity Type Activity Date Activity User E-sign Co-sign Detail Recorded Client Recorded Date Recorded By Document 01/01/22 11:07 [id number] 01/01/22 11:09 Document 01/08/22 10:09 [id number] 01/08/22 10:12 Document 01/15/22 09:48 [id number] 01/15/22 09:50 01/01/22 01/08/22 01/15/22 11:07 10:09 09:48 Wound Center Nurse 2 #1- L PLANTAR -Time 11:07 10:09 09:49 -Correct Patient Yes Yes Yes -Correct Side, Site, Position Yes Yes Yes -Correct Procedure Yes Yes Yes -Procedure Performed Yes Yes Yes -Type of Procedure Debridement Debridement Debridement -Clinical Debridement Subcutaneous Subcutaneous Subcutaneous -Tissue Removed Subcutaneous Subcutaneous Subcutaneous -Post Debridement (cm) - Length 1.6 2.0 2 -Post Debridement (cm) - Width 1.0 1.5 1 -Post Debridement (cm) - Depth 1.0 1.2 0.5 -Total Square (Post) (cm) 1.60 3.00 2 -Area of Debridement (cm) - Length 1.6 2.0 2 -Area of Debridement (cm) - Width 1 1.5 1 -Total Square (Area) (cm) 1.6 3.00 2 -Tunneling No No No -Undermining/Tunneling No No No -Circular Undermining No No No -Wound/Ulcer Outcome Not Healed Not Healed Not Healed -Ulcer Cleansing Rinsed/ Rinsed/ Rinsed/ Irrigated with Irrigated with Irrigated with Saline Saline Saline -Foul Odor after Cleansing No No No -Bioengineered Tissue No No No -Bleeding Controlled with Pressure Pressure Pressure -Treatment Response Procedure Procedure Procedure Tolerated Well Tolerated Well Tolerated Well -Offloading Yes Yes Yes -Type of Offloading Surgical Shoe Surgical Shoe Surgical Shoe -Debridement - Subq, 1st 20sq cm Yes Yes Yes Pain Scale: 0-10 Numeric Is Patient Pain Free? Yes Yes Yes - Nurse 3 - General Ulcer D/C NN Start: 01/01/22 10:58 Freq: Status: Active Protocol: Activity Type Activity Date Activity User E-sign Co-sign Detail Recorded Client Recorded Date Recorded By Document 01/01/22 11:20 [facility] [id number] 01/01/22 11:21 [facility] Document 01/08/22 10:23 MA [id number] 01/08/22 10:26 MA 01/01/22 01/08/22 11:20 10:23 Wound Care Nurse 3 #1- L PLANTAR -Ulcer Cleansing Rinsed/ Rinsed/ Irrigated with Irrigated with Saline Saline -Foul Odor after Cleansing No No -Other Dressing DAKINS MOIST dakins moist GAUZE gauze -Primary Dressing Covered/Secured with Dry Gauze & Dry Gauze & Roll Gauze, Roll Gauze, Secured with Secured with Tape Tape -Other Covering ABD Treatment Response Procedure Procedure Tolerated Well Tolerated Well Pain Scale: 0-10 Numeric Is Patient Pain Free? Yes Yes - Visit Discharge Discharge Condition Stable Stable Ambulatory Status Ambulatory Ambulatory Transportation Private Auto Private Auto Assessment/Plan Assessment/Plan (1) Type 2 diabetes mellitus with diabetic polyneuropathy: CODE(S): E11.42 - Type 2 diabetes mellitus with diabetic polyneuropathy (2) Non-pressure chronic ulcer of other part of left foot with fat layer exposed: CODE(S): L97.522 - Non-pressure chronic ulcer of other part of left foot with fat layer exposed PLAN: Exam performed. Wound slightly improved today. Patient completed course of doxycycline and ciprofloxacin, cellulitis resolved. Patient noncompliant with treatment specifically weightbearing restrictions. Today surgical shoe wound was read modified with offloading pad to offload the fourth metatarsal head at the site of ulceration. Patient to be heel weightbearing in surgical shoe. Realistically patient should be completely nonweightbearing. 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 Patient is instructed to bear weight mainly through the heel. Patient instructed to limit weightbearing to around the house for transfer purposes to bathroom kitchen etc. Wound to left foot with was excisionally debrided down to including level of subcutaneous tissue of all nonviable tissue using 5 mm dermal curette. Hemostasis obtained with light compression. No anesthesia due to neuropathy. Patient tolerated procedure well patient consented procedure. Pre and post debridement measurements document nursing notes. Wound cultured we will continue Dakin's every third day performed by home health care dressing changes and asked for the third dressing of the week. Patient follow-up in 1 week. X-rays ordered today
[2022-01-22 09:31] VITALS: BP 145/69; PULSE 62; RESP 18; TEMP 36; BMI 41.7
--- NOTE | 2022-01-22 10:07 | PCM.WC.PN ---
History of Present Illness Date of Service: 01/22/22 Progress of Wound: 81-year-old male underwent incision and drainage of deep abscess to left plantar foot on 11/30/2021. patient denies constitutional symptoms today. Pain was well controlled. Patient off antibiotics at this time he was discharged on Augmentin and ciprofloxacin. No residual signs of infection. Since the patient's discharge he has been ambulating on his left foot wound. [facility] due to noncompliance with wound VAC and nonweightbearing. Patient presents today ambulating in normal shoe gear. Patient denies constitutional symptoms or signs of infection. No other complaints. Patient has been completely noncompliant with weightbearing restrictions. Patient notes that he has been cutting his 5-day for prolonged on a weekly basis. Patient notes that he picked up leaves. Patient has been ambulating in regular shoe gear. Patient feels to understand purpose of offloading as he has neuropathy and does not feel any pain therefore does not recognize the importance of offloading. Objective Data Objective Data Vital Signs: Vital Signs Temp Pulse Resp BP O2 Del Method 96.8 F L 62 18 145/69 H Room Air 01/22/22 09:31 01/22/22 09:31 01/22/22 09:31 01/22/22 09:31 01/22/22 09:31 Oxygen Delivery Method Room Air Weight: 100.244 kg Body Mass Index (BMI) 41.7 Lab / Micro Data Micro: Microbiology 01/01/22 11:02 Wound Abcess - Left Foot Gram Stain - Final 01/01/22 11:02 Wound Abcess - Left Foot Wound Culture - Final Moraxella group Stenotrophomonas maltophilia Staphylococcus lugdunensis Staphylococcus epidermidis 01/01/22 11:02 Wound Abcess - Left Foot Anaerobic Culture - Final No anaerobic bacteria isolated. Physical Exam Narrative Patient AOx3. Neurovascular status unchanged from previous evaluation. Full-thickness wound granulating in well demonstrates good healing potential. Slightly increased in size with periwound callus noted. Increased erythema edema and warmth to the periwound area. Concerning for cellulitis. No pain with calf squeeze or palpation of popliteal fossa muscular strength full to bilateral lower extremity compartments. Debridement Note Debridement Note Post-Debridement Measurements and Additional Note: Post-Debridement Measurements/Treatment WC - Nurse 1 - General Ulcer Assessment Start: 11/01/22 10:58 Freq: Status: Active Protocol: WC.LOWEXT Activity Type Activity Date Activity User E-sign Co-sign Detail Recorded Client Recorded Date Recorded By Document 01/01/22 11:20 AK [id number] 01/01/22 11:21 AK Document 01/08/22 09:40 BM [id number] 01/08/22 09:49 BMF Document 01/15/22 09:24 BMF [id number] 01/15/22 09:33 BM Document 01/22/22 09:31 MW [id number] 01/22/22 09:37 MW 01/01/22 01/08/22 01/15/22 11:20 09:40 09:24 WC - Today's Visit Information Type of service Follow-up Visit Follow-up Visit Follow-up Visit (Physician/JAVA FLEX DEVELOPER (Physician/JAVA FLEX DEVELOPER (Physician/JAVA FLEX DEVELOPER ) ) ) Arrival Mode Ambulatory Ambulatory Ambulatory Transfer Assistance None None Accompanied by Patient Identification Verified (Name & Yes Yes Yes ) Patient Requires Transmission-Based No No No Precautions Safety Precautions NA Height and Weight Body Mass Index (BMI) 41.7 41.7 41.7 BMI Classification Obese Obese Obese Vital Signs Temperature (97.8 F-99.1 F) 97.2 F L 96.9 F L 96.7 F L Temperature Source Temporal Temporal Temporal Pulse Rate (60-100) 69 57 L 65 Pulse Location Monitor Monitor Monitor Respiratory Rate (12-18) 16 16 Respiratory rate source Observation Observation Oxygen Delivery Method Room Air Room Air Blood Pressure (90/60-120/80) 124/59 H 135/65 H 136/57 H Blood Pressure Mean (mm Hg) 80 88 83 Source Monitor Monitor Monitor Position Sitting Sitting Blood Pressure Location Right Arm Right Arm History Since Last Visit- (Skip if this is Patient's initial visit) Have you changed medications since your No No No last visit? Any new allergies or adverse reactions No No No Had a fall/change in ADL's that may No No No increase risk of falls Signs or symptoms of abuse and/or No No No neglect since last visit Have you been in the hospital since your No No No last visit? Has dressing in place as prescribed Yes Yes Yes Has compression in place as prescribed N/A N/A N/A Has offloadiing in place as prescribed N/A Yes Yes Experienced any changes in pain level or No No No management Left Footwear Surgical Shoe Surgical Shoe Surgical Shoe with pressure with pressure with pressure relief insole relief insole relief insole Right Footwear Regular Shoe Regular Shoe Regular Shoe Pain Scale: 0-10 Numeric Is Patient Pain Free? No Yes Yes 01/22/22 09:31 - Today's Visit Information Type of service Follow-up Visit (Physician/JAVA FLEX DEVELOPER ) Arrival Mode Ambulatory Transfer Assistance None Accompanied by self Patient Identification Verified (Name & Yes ) Patient Requires Transmission-Based No Precautions Safety Precautions Fall Prevention Height and Weight Body Mass Index (BMI) 41.7 BMI Classification Obese Vital Signs Temperature (97.8 F-99.1 F) 96.8 F L Temperature Source Temporal Pulse Rate (60-100) 62 Pulse Location Monitor Respiratory Rate (12-18) 18 Respiratory rate source Observation Oxygen Delivery Method Room Air Blood Pressure (90/60-120/80) 145/69 H Blood Pressure Mean (mm Hg) 94 Source Monitor Position Sitting Blood Pressure Location Left Arm History Since Last Visit- (Skip if this is Patient's initial visit) Have you changed medications since your No last visit? Any new allergies or adverse reactions No Had a fall/change in ADL's that may No increase risk of falls Signs or symptoms of abuse and/or No neglect since last visit Have you been in the hospital since your No last visit? Has dressing in place as prescribed Yes Has compression in place as prescribed N/A Has offloadiing in place as prescribed No Experienced any changes in pain level or No management Left Footwear Regular Shoe Right Footwear Regular Shoe Pain Scale: 0-10 Numeric Is Patient Pain Free? Yes - Nurse 1 - General Ulcer Measurement Start: 01/01/22 10:58 Freq: Status: Active Protocol: Activity Type Activity Date Activity User E-sign Co-sign Detail Recorded Client Recorded Date Recorded By Document 01/01/22 11:20 AK [id number] 01/01/22 11:21 AK Document 01/08/22 09:40 [facility] [id number] 01/08/22 09:49 BM Document 01/15/22 09:24 BM [id number] 01/15/22 09:33 BM Document 01/22/22 09:31 [id number] 01/22/22 09:37 MW 01/01/22 01/08/22 01/15/22 11:20 09:40 09:24 Wound Center Nurse 1 #1- L PLANTAR -Combined with other wound No No No -Current Size (cm) - Length 1.6 1.7 2 -Current Size (cm) - Width 1 1.3 0.9 -Current Size (cm) - Depth 0.5 1.2 0.5 -Total Square Cm 1.6 2.21 1.8 -Date of Last Picture (Recall this 01/15/22 field) -Photo Taken Yes No -Epithelialization Small 1-33% Small 1-33% -Tunneling No No No -Undermining/Tunneling No Yes Yes -Undermining/Tunneling Starts (O'clock 12 10 ) -Undermining/Tunneling Ends (O'clock) 12 4 -Maximum Distance (cm) 0.6 0.4 -Circular Undermining No Yes No -Change in Wound Grade/Stage No -Exudate Amt Medium Large Medium -Exudate Type Serosanguineous Serosanguineous Serosanguineous -Wound Margin Distinct, Distinct, Distinct, Outline Outline Outline Attached Attached Attached -Granulation Amt Small (1-33%) Large (67-100%) Large (67-100%) -Granulation Quality N/A Red Pale,Red -Slough/Fibrin Yes Yes Yes -Necrosis Amt Small (1-33%) Small (1-33%) Small (1-33%) -Necrotic Tissue Type Adherent Slough Adherent Slough Adherent Slough -Structure Exposed N/A -Texture (Susan-wound Skin Appearance) No Abnormality, Assessed,Callus Assessed,Callus Assessed ,Scarring ,Scarring -Moisture (Susan-wound Skin Appearance) No Abnormality, Assessed Assessed,Dry/ Assessed Scaly -Color (Susan-wound Skin Appearance) No Abnormality, Assessed Assessed Assessed -Temperature (Susan-wound Skin No Abnormality No Abnormality No Abnormality Appearance) (Pt Warm) (Pt Warm) (Pt Warm) -Tenderness on Palpation (Susan-wound No No No Skin Appearance) -Ulcer Cleansing Soap and Water Soap and Water Rinsed/ Irrigated with Saline -Foul Odor after Cleansing No Yes, Due to No Product Use -Anesthetic Used 5% Lidocaine 5% Lidocaine 5% Lidocaine Gel Gel Gel Lower Limb Edema Present 01/22/22 09:31 Wound Center Nurse 1 #1- L PLANTAR -Combined with other wound No -Current Size (cm) - Length 2.4 -Current Size (cm) - Width 1.7 -Current Size (cm) - Depth 0.7 -Total Square Cm 4.08 -Date of Last Picture (Recall this 01/22/22 field) -Photo Taken Yes -Epithelialization None Present -Tunneling No -Undermining/Tunneling No -Undermining/Tunneling Starts (O'clock ) -Undermining/Tunneling Ends (O'clock) -Maximum Distance (cm) -Circular Undermining No -Change in Wound Grade/Stage -Exudate Amt Medium -Exudate Type Serosanguineous -Wound Margin Distinct, Outline Attached -Granulation Amt Large (67-100%) -Granulation Quality [place] -Slough/Fibrin Yes -Necrosis Amt Small (1-33%) -Necrotic Tissue Type Adherent Slough -Structure Exposed N/A -Texture (Susan-wound Skin Appearance) Assessed,Callus ,Localized Edema,Scarring -Moisture (Susan-wound Skin Appearance) Assessed,Dry/ Scaly -Color (Susan-wound Skin Appearance) No Abnormality, Assessed -Temperature (Susan-wound Skin No Abnormality Appearance) (Pt Warm) -Tenderness on Palpation (Susan-wound No Skin Appearance) -Ulcer Cleansing Rinsed/ Irrigated with Saline -Foul Odor after Cleansing No -Anesthetic Used 5% Lidocaine Gel Lower Limb Edema Present No WC - Nurse 2 - General Ulcer CM Notes Start: 01/01/22 10:58 Freq: Status: Active Protocol: Activity Type Activity Date Activity User E-sign Co-sign Detail Recorded Client Recorded Date Recorded By Document 01/01/22 11:07 [id number] 01/01/22 11:09 Document 01/08/22 10:09 [id number] 01/08/22 10:12 Document 01/15/22 09:48 [id number] 01/15/22 09:50 Document 01/22/22 09:55 [id number] 01/22/22 09:57 01/01/22 01/08/22 01/15/22 11:07 10:09 09:48 Wound Center Nurse 2 #1- L PLANTAR -Time 11:07 10:09 09:49 -Correct Patient Yes Yes Yes -Correct Side, Site, Position Yes Yes Yes -Correct Procedure Yes Yes Yes -Procedure Performed Yes Yes Yes -Type of Procedure Debridement Debridement Debridement -Clinical Debridement Subcutaneous Subcutaneous Subcutaneous -Tissue Removed Subcutaneous Subcutaneous Subcutaneous -Post Debridement (cm) - Length 1.6 2.0 2 -Post Debridement (cm) - Width 1.0 1.5 1 -Post Debridement (cm) - Depth 1.0 1.2 0.5 -Total Square (Post) (cm) 1.60 3.00 2 -Area of Debridement (cm) - Length 1.6 2.0 2 -Area of Debridement (cm) - Width 1 1.5 1 -Total Square (Area) (cm) 1.6 3.00 2 -Tunneling No No No -Undermining/Tunneling No No No -Circular Undermining No No No -Wound/Ulcer Outcome Not Healed Not Healed Not Healed -Ulcer Cleansing Rinsed/ Rinsed/ Rinsed/ Irrigated with Irrigated with Irrigated with Saline Saline Saline -Foul Odor after Cleansing No No No -Bioengineered Tissue No No No -Bleeding Controlled with Pressure Pressure Pressure -Treatment Response Procedure Procedure Procedure Tolerated Well Tolerated Well Tolerated Well -Offloading Yes Yes Yes -Type of Offloading Surgical Shoe Surgical Shoe Surgical Shoe -Debridement - Subq, 1st 20sq cm Yes Yes Yes Pain Scale: 0-10 Numeric Is Patient Pain Free? Yes Yes Yes 01/22/22 09:55 Wound Center Nurse 2 #1- L PLANTAR -Time 09:55 -Correct Patient Yes -Correct Side, Site, Position Yes -Correct Procedure Yes -Procedure Performed Yes -Type of Procedure Debridement -Clinical Debridement Subcutaneous -Tissue Removed Subcutaneous -Post Debridement (cm) - Length 2.5 -Post Debridement (cm) - Width 1.7 -Post Debridement (cm) - Depth 0.7 -Total Square (Post) (cm) 4.25 -Area of Debridement (cm) - Length 2.5 -Area of Debridement (cm) - Width 1.7 -Total Square (Area) (cm) 4.25 -Tunneling No -Undermining/Tunneling No -Circular Undermining No -Wound/Ulcer Outcome Not Healed -Ulcer Cleansing Rinsed/ Irrigated with Saline -Foul Odor after Cleansing No -Bioengineered Tissue No -Bleeding Controlled with Pressure -Treatment Response Procedure Tolerated Well -Offloading Yes -Type of Offloading Surgical Shoe -Debridement - Subq, 1st 20sq cm Yes Pain Scale: 0-10 Numeric Is Patient Pain Free? Yes - Nurse 3 - General Ulcer D/C NN Start: 01/01/22 10:58 Freq: Status: Active Protocol: Activity Type Activity Date Activity User E-sign Co-sign Detail Recorded Client Recorded Date Recorded By Document 01/01/22 11:20 [facility] [id number] 01/01/22 11:21 [facility] Document 01/08/22 10:23 PR [id number] 01/08/22 10:26 PR Document 01/15/22 14:58 DL [id number] 01/15/22 14:59 DL 01/01/22 01/08/22 01/15/22 11:20 10:23 14:58 Wound Care Nurse 3 #1- L PLANTAR -Ulcer Cleansing Rinsed/ Rinsed/ Rinsed/ Irrigated with Irrigated with Irrigated with Saline Saline Saline -Foul Odor after Cleansing No No No -Other Dressing DAKINS MOIST dakins moist dakins GAUZE gauze -Primary Dressing Covered/Secured with Dry Gauze & Dry Gauze & Dry Gauze & Roll Gauze, Roll Gauze, Roll Gauze, Secured with Secured with Secured with Tape Tape Tape -Other Covering ABD Treatment Response Procedure Procedure Procedure Tolerated Well Tolerated Well Tolerated Well Pain Scale: 0-10 Numeric Is Patient Pain Free? Yes Yes Yes - Visit Discharge Discharge Condition Stable Stable Stable Ambulatory Status Ambulatory Ambulatory Ambulatory Transportation Private Auto Private Auto Private Auto Assessment/Plan Assessment/Plan (1) Type 2 diabetes mellitus with diabetic polyneuropathy: CODE(S): E11.42 - Type 2 diabetes mellitus with diabetic polyneuropathy (2) Non-pressure chronic ulcer of other part of left foot with fat layer exposed: CODE(S): L97.522 - Non-pressure chronic ulcer of other part of left foot with fat layer exposed PLAN: Exam performed. Wound slightly improved today. Patient completed course of doxycycline and ciprofloxacin, cellulitis resolved. Patient noncompliant with treatment specifically weightbearing restrictions. Today surgical shoe wound was read modified with offloading pad to offload the fourth metatarsal head at the site of ulceration. Patient to be heel weightbearing in surgical shoe. Realistically patient should be completely nonweightbearing. 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 Patient is instructed to bear weight mainly through the heel. Patient instructed to limit weightbearing to around the house for transfer purposes to bathroom kitchen etc. Wound to left foot with was excisionally debrided down to including level of subcutaneous tissue of all nonviable tissue using 5 mm dermal curette. Hemostasis obtained with light compression. No anesthesia due to neuropathy. Patient tolerated procedure well patient consented procedure. Pre and post debridement measurements document nursing notes. Wound cultured we will continue Dakin's every third day performed by home health care dressing changes and asked for the third dressing of the week. Patient follow-up in 1 week. X-rays ordered last week, patient didn't get these done. He will get them done today. Patient will follow up in 1 week, will consider theraskin grafting to accelerate healing.
--- NOTE | 2022-01-22 10:30 | RAD_ITS ---
STUDY: X-RAY - LEFT FOOT CLINICAL: Male, 81 years old. Wound. Follow-up. TECHNIQUE: 3 view(s) of the foot. COMPARISON: November 21, 2021. FINDINGS: Stable osteopenia. Superior calcaneal spur, unchanged. Mild arthrosis of the tibiotalar and subtalar joints, unchanged Stable mild arthrosis of the midfoot. Stable mild arthrosis of the TMT joints. Mild arthrosis of the MTP and IP joints with hammertoe deformities, unchanged. 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 RAD/Foot min 3 Views IMPRESSION: Stable osteopenia with osteoarthritic changes. No bone erosion or acute abnormality. Electronically Signed: Michael Laura, at 12:35 EST ,
[2022-01-29 09:34] VITALS: BP 139/69; PULSE 67; RESP 16; TEMP 35.8; BMI 41.7
--- NOTE | 2022-01-29 10:11 | PCM.WC.PN ---
History of Present Illness Date of Service: 01/29/22 Progress of Wound: 81-year-old male underwent incision and drainage of deep abscess to left plantar foot on 11/30/2021. patient denies constitutional symptoms today. Pain was well controlled. Patient off antibiotics at this time he was discharged on Augmentin and ciprofloxacin. No residual signs of infection. Since the patient's discharge he has been ambulating on his left foot wound. Patient was discharged from nursing home facility due to noncompliance with wound VAC and nonweightbearing. Patient presents today ambulating in normal shoe gear. Patient denies constitutional symptoms or signs of infection. No other complaints. Patient has been completely noncompliant with weightbearing restrictions. Patient notes that he has been cutting his 5-day for prolonged on a weekly basis. Patient notes that he picked up leaves. Patient has been ambulating in regular shoe gear. Patient feels to understand purpose of offloading as he has neuropathy and does not feel any pain therefore does not recognize the importance of offloading. Objective Data Objective Data Vital Signs: Vital Signs Temp Pulse Resp BP O2 Del Method 96.5 F L 67 16 139/69 H Room Air 01/29/22 09:34 01/29/22 09:34 01/29/22 09:34 01/29/22 09:34 01/29/22 09:34 Oxygen Delivery Method Room Air Weight: 100.244 kg Body Mass Index (BMI) 41.7 Lab / Micro Data Micro: Microbiology 01/01/22 11:02 Wound Abcess - Left Foot Gram Stain - Final 01/01/22 11:02 Wound Abcess - Left Foot Wound Culture - Final Moraxella group Stenotrophomonas maltophilia Staphylococcus lugdunensis Staphylococcus epidermidis 01/01/22 11:02 Wound Abcess - Left Foot Anaerobic Culture - Final No anaerobic bacteria isolated. Physical Exam Narrative Patient AOx3. Neurovascular status unchanged from previous evaluation. Full-thickness wound granulating in well demonstrates good healing potential. Slightly increased in size with periwound callus noted. Increased erythema edema and warmth to the periwound area. Concerning for cellulitis. No pain with calf squeeze or palpation of popliteal fossa muscular strength full to bilateral lower extremity compartments. Debridement Note Debridement Note Post-Debridement Measurements and Additional Note: Post-Debridement Measurements/Treatment WC - Nurse 1 - General Ulcer Assessment Start: 11/01/22 10:58 Freq: Status: Active Protocol: WC.LOWEXT Activity Type Activity Date Activity User E-sign Co-sign Detail Recorded Client Recorded Date Recorded By Document 01/01/22 11:20 AK [id number] 01/01/22 11:21 AK Document 01/08/22 09:40 BM [id number] 01/08/22 09:49 BMF Document 01/15/22 09:24 BMF [id number] 01/15/22 09:33 BMF Document 01/22/22 09:31 MW [id number] 01/22/22 09:37 MW Document 01/29/22 09:34 BM [id number] 01/29/22 09:39 BMF 01/01/22 01/08/22 01/15/22 11:20 09:40 09:24 WC - Today's Visit Information Type of service Follow-up Visit Follow-up Visit Follow-up Visit (Physician/AS400 PROGRAMMER (Physician/AS400 PROGRAMMER (Physician/AS400 PROGRAMMER ) ) ) Arrival Mode Ambulatory Ambulatory Ambulatory Transfer Assistance None None Accompanied by Patient Identification Verified (Name & Yes Yes Yes ) Patient Requires Transmission-Based No No No Precautions Safety Precautions NA Height and Weight Body Mass Index (BMI) 41.7 41.7 41.7 BMI Classification Obese Obese Obese Vital Signs Temperature (97.8 F-99.1 F) 97.2 F L 96.9 F L 96.7 F L Temperature Source Temporal Temporal Temporal Pulse Rate (60-100) 69 57 L 65 Pulse Location Monitor Monitor Monitor Respiratory Rate (12-18) 16 16 Respiratory rate source Observation Observation Oxygen Delivery Method Room Air Room Air Blood Pressure (90/60-120/80) 124/59 H 135/65 H 136/57 H Blood Pressure Mean (mm Hg) 80 88 83 Source Monitor Monitor Monitor Position Sitting Sitting Blood Pressure Location Right Arm Right Arm History Since Last Visit- (Skip if this is Patient's initial visit) Have you changed medications since your No No No last visit? Any new allergies or adverse reactions No No No Had a fall/change in ADL's that may No No No increase risk of falls Signs or symptoms of abuse and/or No No No neglect since last visit Have you been in the hospital since your No No No last visit? Has dressing in place as prescribed Yes Yes Yes Has compression in place as prescribed N/A N/A N/A Has offloadiing in place as prescribed N/A Yes Yes Experienced any changes in pain level or No No No management Left Footwear Surgical Shoe Surgical Shoe Surgical Shoe with pressure with pressure with pressure relief insole relief insole relief insole Right Footwear Regular Shoe Regular Shoe Regular Shoe Pain Scale: 0-10 Numeric Is Patient Pain Free? No Yes Yes 01/22/22 01/29/22 09:31 09:34 WC - Today's Visit Information Type of service Follow-up Visit Follow-up Visit (Physician/AS400 PROGRAMMER (Physician/AS400 PROGRAMMER ) ) Arrival Mode Ambulatory Ambulatory Transfer Assistance None None Accompanied by self Patient Identification Verified (Name & Yes Yes ) Patient Requires Transmission-Based No No Precautions Safety Precautions Fall Prevention Height and Weight Body Mass Index (BMI) 41.7 41.7 BMI Classification Obese Obese Vital Signs Temperature (97.8 F-99.1 F) 96.8 F L 96.5 F L Temperature Source Temporal Temporal Pulse Rate (60-100) 62 67 Pulse Location Monitor Monitor Respiratory Rate (12-18) 18 16 Respiratory rate source Observation Observation Oxygen Delivery Method Room Air Room Air Blood Pressure (90/60-120/80) 145/69 H 139/69 H Blood Pressure Mean (mm Hg) 94 92 Source Monitor Monitor Position Sitting Sitting Blood Pressure Location Left Arm History Since Last Visit- (Skip if this is Patient's initial visit) Have you changed medications since your No No last visit? Any new allergies or adverse reactions No No Had a fall/change in ADL's that may No No increase risk of falls Signs or symptoms of abuse and/or No No neglect since last visit Have you been in the hospital since your No No last visit? Has dressing in place as prescribed Yes Yes Has compression in place as prescribed N/A N/A Has offloadiing in place as prescribed No Yes Experienced any changes in pain level or No No management Left Footwear Regular Shoe Surgical Shoe with pressure relief insole Right Footwear Regular Shoe Regular Shoe Pain Scale: 0-10 Numeric Is Patient Pain Free? Yes Yes - Nurse 1 - General Ulcer Measurement Start: 01/01/22 10:58 Freq: Status: Active Protocol: Activity Type Activity Date Activity User E-sign Co-sign Detail Recorded Client Recorded Date Recorded By Document 01/01/22 11:20 AK [id number] 01/01/22 11:21 AK Document 01/08/22 09:40 BM [id number] 01/08/22 09:49 BMF Document 01/15/22 09:24 BMF [id number] 01/15/22 09:33 BMF Document 01/22/22 09:31 MW [id number] 01/22/22 09:37 MW Document 01/29/22 09:34 BM [id number] 01/29/22 09:39 BMF 01/01/22 01/08/22 01/15/22 11:20 09:40 09:24 Wound Center Nurse 1 #1- L PLANTAR -Combined with other wound No No No -Current Size (cm) - Length 1.6 1.7 2 -Current Size (cm) - Width 1 1.3 0.9 -Current Size (cm) - Depth 0.5 1.2 0.5 -Total Square Cm 1.6 2.21 1.8 -Date of Last Picture (Recall this 01/15/22 field) -Photo Taken Yes No -Epithelialization Small 1-33% Small 1-33% -Tunneling No No No -Undermining/Tunneling No Yes Yes -Undermining/Tunneling Starts (O'clock 12 10 ) -Undermining/Tunneling Ends (O'clock) 12 4 -Maximum Distance (cm) 0.6 0.4 -Circular Undermining No Yes No -Change in Wound Grade/Stage No -Exudate Amt Medium Large Medium -Exudate Type Serosanguineous Serosanguineous Serosanguineous -Wound Margin Distinct, Distinct, Distinct, Outline Outline Outline Attached Attached Attached -Granulation Amt Small (1-33%) Large (67-100%) Large (67-100%) -Granulation Quality N/A Red Pale,Red -Slough/Fibrin Yes Yes Yes -Necrosis Amt Small (1-33%) Small (1-33%) Small (1-33%) -Necrotic Tissue Type Adherent Slough Adherent Slough Adherent Slough -Structure Exposed N/A -Texture (Susan-wound Skin Appearance) No Abnormality, Assessed,Callus Assessed,Callus Assessed ,Scarring ,Scarring -Moisture (Susan-wound Skin Appearance) No Abnormality, Assessed Assessed,Dry/ Assessed Scaly -Color (Susan-wound Skin Appearance) No Abnormality, Assessed Assessed Assessed -Temperature (Susan-wound Skin No Abnormality No Abnormality No Abnormality Appearance) (Pt Warm) (Pt Warm) (Pt Warm) -Tenderness on Palpation (Susan-wound No No No Skin Appearance) -Ulcer Cleansing Soap and Water Soap and Water Rinsed/ Irrigated with Saline -Foul Odor after Cleansing No Yes, Due to No Product Use -Anesthetic Used 5% Lidocaine 5% Lidocaine 5% Lidocaine Gel Gel Gel Lower Limb Edema Present 01/22/22 01/29/22 09:31 09:34 Wound Center Nurse 1 #1- L PLANTAR -Combined with other wound No No -Current Size (cm) - Length 2.4 2.3 -Current Size (cm) - Width 1.7 1.5 -Current Size (cm) - Depth 0.7 0.5 -Total Square Cm 4.08 3.45 -Date of Last Picture (Recall this 01/22/22 01/29/22 field) -Photo Taken Yes Yes -Epithelialization None Present None Present -Tunneling No No -Undermining/Tunneling No Yes -Undermining/Tunneling Starts (O'clock 11 ) -Undermining/Tunneling Ends (O'clock) 2 -Maximum Distance (cm) 0.4 -Circular Undermining No No -Change in Wound Grade/Stage -Exudate Amt Medium Medium -Exudate Type Serosanguineous Serosanguineous -Wound Margin Distinct, Distinct, Outline Outline Attached Attached -Granulation Amt Large (67-100%) Large (67-100%) -Granulation Quality [place] Pale,Red -Slough/Fibrin Yes Yes -Necrosis Amt Small (1-33%) Small (1-33%) -Necrotic Tissue Type Adherent Slough Adherent Slough -Structure Exposed N/A -Texture (Susan-wound Skin Appearance) Assessed,Callus Assessed,Callus ,Localized ,Scarring Edema,Scarring -Moisture (Susan-wound Skin Appearance) Assessed,Dry/ Assessed,Dry/ Scaly Scaly -Color (Susan-wound Skin Appearance) No Abnormality, Assessed Assessed -Temperature (Susan-wound Skin No Abnormality No Abnormality Appearance) (Pt Warm) (Pt Warm) -Tenderness on Palpation (Susan-wound No No Skin Appearance) -Ulcer Cleansing Rinsed/ Rinsed/ Irrigated with Irrigated with Saline Saline -Foul Odor after Cleansing No No -Anesthetic Used 5% Lidocaine 5% Lidocaine Gel Gel Lower Limb Edema Present No - Nurse 2 - General Ulcer CM Notes Start: 01/01/22 10:58 Freq: Status: Active Protocol: Activity Type Activity Date Activity User E-sign Co-sign Detail Recorded Client Recorded Date Recorded By Document 01/01/22 11:07 [id number] 01/01/22 11:09 Document 01/08/22 10:09 [id number] 01/08/22 10:12 Document 01/15/22 09:48 [id number] 01/15/22 09:50 Document 01/22/22 09:55 [id number] 01/22/22 09:57 Document 01/29/22 10:02 [id number] 01/29/22 10:05 01/01/22 01/08/22 01/15/22 11:07 10:09 09:48 Wound Center Nurse 2 #1- L PLANTAR -Time 11:07 10:09 09:49 -Correct Patient Yes Yes Yes -Correct Side, Site, Position Yes Yes Yes -Correct Procedure Yes Yes Yes -Procedure Performed Yes Yes Yes -Type of Procedure Debridement Debridement Debridement -Clinical Debridement Subcutaneous Subcutaneous Subcutaneous -Tissue Removed Subcutaneous Subcutaneous Subcutaneous -Post Debridement (cm) - Length 1.6 2.0 2 -Post Debridement (cm) - Width 1.0 1.5 1 -Post Debridement (cm) - Depth 1.0 1.2 0.5 -Total Square (Post) (cm) 1.60 3.00 2 -Area of Debridement (cm) - Length 1.6 2.0 2 -Area of Debridement (cm) - Width 1 1.5 1 -Total Square (Area) (cm) 1.6 3.00 2 -Tunneling No No No -Undermining/Tunneling No No No -Circular Undermining No No No -Wound/Ulcer Outcome Not Healed Not Healed Not Healed -Ulcer Cleansing Rinsed/ Rinsed/ Rinsed/ Irrigated with Irrigated with Irrigated with Saline Saline Saline -Foul Odor after Cleansing No No No -Bioengineered Tissue No No No -Bleeding Controlled with Pressure Pressure Pressure -Treatment Response Procedure Procedure Procedure Tolerated Well Tolerated Well Tolerated Well -Offloading Yes Yes Yes -Type of Offloading Surgical Shoe Surgical Shoe Surgical Shoe -Debridement - Subq, 1st 20sq cm Yes Yes Yes Pain Scale: 0-10 Numeric Is Patient Pain Free? Yes Yes Yes 01/22/22 01/29/22 09:55 10:02 Wound Center Nurse 2 #1- L PLANTAR -Time 09:55 10:02 -Correct Patient Yes Yes -Correct Side, Site, Position Yes Yes -Correct Procedure Yes Yes -Procedure Performed Yes Yes -Type of Procedure Debridement Debridement -Clinical Debridement Subcutaneous Subcutaneous -Tissue Removed Subcutaneous Subcutaneous -Post Debridement (cm) - Length 2.5 2.5 -Post Debridement (cm) - Width 1.7 1.6 -Post Debridement (cm) - Depth 0.7 0.5 -Total Square (Post) (cm) 4.25 4.00 -Area of Debridement (cm) - Length 2.5 2.5 -Area of Debridement (cm) - Width 1.7 1.6 -Total Square (Area) (cm) 4.25 4.00 -Tunneling No No -Undermining/Tunneling No No -Circular Undermining No No -Wound/Ulcer Outcome Not Healed Not Healed -Ulcer Cleansing Rinsed/ Rinsed/ Irrigated with Irrigated with Saline Saline -Foul Odor after Cleansing No No -Bioengineered Tissue No No -Bleeding Controlled with Pressure Pressure -Treatment Response Procedure Procedure Tolerated Well Tolerated Well -Offloading Yes Yes -Type of Offloading Surgical Shoe Surgical Shoe -Debridement - Subq, 1st 20sq cm Yes Yes Pain Scale: 0-10 Numeric Is Patient Pain Free? Yes Yes - Nurse 3 - General Ulcer D/C NN Start: 01/01/22 10:58 Freq: Status: Active Protocol: Activity Type Activity Date Activity User E-sign Co-sign Detail Recorded Client Recorded Date Recorded By Document 01/01/22 11:20 [facility] [id number] 01/01/22 11:21 [facility] Document 01/08/22 10:23 [place] [id number] 01/08/22 10:26 [place] Document 01/15/22 14:58 DL [id number] 01/15/22 14:59 DL Document 01/22/22 10:06 [facility] [id number] 01/22/22 10:09 BMF 01/01/22 01/08/22 01/15/22 11:20 10:23 14:58 Wound Care Nurse 3 #1- L PLANTAR -Ulcer Cleansing Rinsed/ Rinsed/ Rinsed/ Irrigated with Irrigated with Irrigated with Saline Saline Saline -Foul Odor after Cleansing No No No -Other Dressing DAKINS MOIST dakins moist dakins GAUZE gauze -Primary Dressing Covered/Secured with Dry Gauze & Dry Gauze & Dry Gauze & Roll Gauze, Roll Gauze, Roll Gauze, Secured with Secured with Secured with Tape Tape Tape -Other Covering ABD Treatment Response Procedure Procedure Procedure Tolerated Well Tolerated Well Tolerated Well Pain Scale: 0-10 Numeric Is Patient Pain Free? Yes Yes Yes WC - Visit Discharge Discharge Condition Stable Stable Stable Ambulatory Status Ambulatory Ambulatory Ambulatory Transportation Private Auto Private Auto Private Auto 01/22/22 10:06 Wound Care Nurse 3 #1- L PLANTAR -Ulcer Cleansing Rinsed/ Irrigated with Saline -Foul Odor after Cleansing No -Other Dressing dakins moist gauze -Primary Dressing Covered/Secured with Dry Gauze & Roll Gauze, Secured with Tape -Other Covering Treatment Response Procedure Tolerated Well Pain Scale: 0-10 Numeric Is Patient Pain Free? Yes WC - Visit Discharge Discharge Condition Stable Ambulatory Status Ambulatory Transportation Private Auto Assessment/Plan Assessment/Plan (1) Type 2 diabetes mellitus with diabetic polyneuropathy: CODE(S): E11.42 - Type 2 diabetes mellitus with diabetic polyneuropathy (2) Non-pressure chronic ulcer of other part of left foot with fat layer exposed: CODE(S): L97.522 - Non-pressure chronic ulcer of other part of left foot with fat layer exposed PLAN: Exam performed. Wound slightly improved today. Patient noncompliant with treatment specifically weightbearing restrictions. Today surgical shoe wound was read modified with offloading pad to offload the fourth metatarsal head at the site of ulceration. Patient to be heel weightbearing in surgical shoe. Realistically patient should be completely nonweightbearing. 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 Patient is instructed to bear weight mainly through the heel. Patient instructed to limit weightbearing to around the house for transfer purposes to bathroom kitchen etc. Wound to left foot with was excisionally debrided down to including level of subcutaneous tissue of all nonviable tissue using 5 mm dermal curette. Hemostasis obtained with light compression. No anesthesia due to neuropathy. Patient tolerated procedure well patient consented procedure. Pre and post debridement measurements document nursing notes. Wound cultured we will continue Dakin's every third day performed by home health care dressing changes and asked for the third dressing of the week. Patient follow-up in 1 week. Radiographs were reviewed there appears to be pathologic fracture to the proximal phalangeal base of the left fourth toe. We will continue to observe the site. Patient has no signs of infection clinically. Wound appears to be improving. If this ceases we will consider possibility of osteomyelitis and consider digital amputation with possible met head resection.
== END 2022-01-30 23:59 | disposition home or self-care (01) ==
LOC: WC 09:45
PROVIDERS: PCP Family Medicine; Visit Provider Podiatrist
DX: E11.42 Type 2 diabetes mellitus with diabetic polyneuropathy (principal); L97.522 Non-pressure chronic ulcer of other part of left foot with fat layer exposed
CPT/HCPCS: 11042; 73630; 87070; 87075; 87077; 87186; 87205

== ENCOUNTER 2022-02-19 09:00 | Outpatient (RCR) | payer MEDICARE, SELFPAY ==
[2022-01-31 00:34] VITALS: BP 139/69; PULSE 67; RESP 16; TEMP 35.8; BMI 41.7
[2022-02-05 08:50] VITALS: BP 140/63; PULSE 64; RESP 19; TEMP 35.9; BMI 41.7
--- NOTE | 2022-02-05 09:14 | PN.PCM_ITS ---
History of Present Illness Date of Service: 02/05/22 Progress of Wound: 81-year-old male underwent incision and drainage of deep abscess to left plantar foot on 11/30/2021. patient denies constitutional symptoms today. Pain was well controlled. Patient off antibiotics at this time he was discharged on Augmentin and ciprofloxacin. No residual signs of infection. Since the patient's discharge he has been ambulating on his left foot wound. Patient was discharged from long term facility due to noncompliance with wound VAC and nonweightbearing. Patient presents today ambulating in normal shoe gear. Patient denies constitutional symptoms or signs of infection. No other complaints. Patient has been completely noncompliant with weightbearing restrictions. Patient notes that he has been cutting his 5-day for prolonged on a weekly basis. Patient notes that he picked up leaves. Patient has been ambulating in regular shoe gear. Patient feels to understand purpose of offloading as he has neuropathy and does not feel any pain therefore does not recognize the importance of offloading. Objective Data Objective Data Vital Signs: Vital Signs Temp Pulse Resp BP 96.7 F L 64 19 H 140/63 H 02/05/22 08:50 02/05/22 08:50 02/05/22 08:50 02/05/22 08:50 Weight: 100.244 kg Body Mass Index (BMI) 41.7 Debridement Note Debridement Note Post-Debridement Measurements and Additional Note: Post-Debridement Measurements/Treatment WC - Nurse 1 - General Ulcer Assessment Start: 02/05/22 08:50 Freq: Status: Active Protocol: WC.LOWEXYaneth Activity Type Activity Date Activity User E-sign Co-sign Detail Recorded Client Recorded Date Recorded By Document 02/05/22 08:50 [id number] 02/05/22 08:59 LARRY 02/05/22 08:50 - Today's Visit Information Type of service Follow-up Visit (Physician/REMEDIATION CONSULTANT ) Arrival Mode Ambulatory Patient Identification Verified (Name & Yes ) Patient Requires Transmission-Based No Precautions Finger Stick Blood Sugar(mg/dl) (if 77 indicated): Blood Sugar Stated by Patient Height and Weight Body Mass Index (BMI) 41.7 BMI Classification Obese Vital Signs Temperature (97.8 F-99.1 F) 96.7 F L Temperature Source Temporal Pulse Rate (60-100) 64 Pulse Location Monitor Respiratory Rate (12-18) 19 H Respiratory rate source Observation Blood Pressure (90/60-120/80) 140/63 H Blood Pressure Mean (mm Hg) 88 Source Monitor Position Semi-Fowlers Blood Pressure Location Left Arm History Since Last Visit- (Skip if this is Patient's initial visit) Have you changed medications since your No last visit? Any new allergies or adverse reactions No Had a fall/change in ADL's that may No increase risk of falls Signs or symptoms of abuse and/or No neglect since last visit Have you been in the hospital since your No last visit? Has dressing in place as prescribed Yes Has compression in place as prescribed N/A Has offloadiing in place as prescribed Yes Experienced any changes in pain level or No management Left Footwear Surgical Shoe with pressure relief insole Right Footwear Regular Shoe Pain Scale: 0-10 Numeric Is Patient Pain Free? Yes WC - Nurse 1 - General Ulcer Measurement Start: 02/05/22 08:50 Freq: Status: Active Protocol: Activity Type Activity Date Activity User E-sign Co-sign Detail Recorded Client Recorded Date Recorded By Document 02/05/22 08:50 [id number] 02/05/22 08:59 02/05/22 08:50 Wound Center Nurse 1 #1- L PLANTAR -Combined with other wound No -Current Size (cm) - Length 2.0 -Current Size (cm) - Width 1.3 -Current Size (cm) - Depth 0.9 -Total Square Cm 2.60 -Photo Taken Yes -Epithelialization Small 1-33% -Tunneling No -Undermining/Tunneling No -Circular Undermining No -Exudate Amt Small -Exudate Type Serosanguineous -Wound Margin Flat & Intact -Granulation Amt Large (67-100%) -Granulation Quality Red -Slough/Fibrin Yes -Necrosis Amt Small (1-33%) -Necrotic Tissue Type Adherent Slough -Structure Exposed N/A -Texture (Susan-wound Skin Appearance) Assessed,Callus -Moisture (Susan-wound Skin Appearance) Assessed -Color (Susan-wound Skin Appearance) Assessed -Temperature (Susan-wound Skin No Abnormality Appearance) (Pt Warm) -Tenderness on Palpation (Susan-wound No Skin Appearance) -Ulcer Cleansing Wound Cleanser -Foul Odor after Cleansing No -Anesthetic Used 5% Lidocaine Gel Lower Limb Edema Present No WC - Nurse 2 - General Ulcer CM Notes Start: 02/05/22 08:50 Freq: Status: Active Protocol: Activity Type Activity Date Activity User E-sign Co-sign Detail Recorded Client Recorded Date Recorded By Document 02/05/22 09:04 LARRY [id number] 02/05/22 09:12 LARRY 02/05/22 09:04 Wound Center Nurse 2 #1- L PLANTAR -Time 09:04 -Correct Patient Yes -Correct Side, Site, Position Yes -Correct Procedure Yes -Procedure Performed Yes -Type of Procedure Debridement -Clinical Debridement Subcutaneous -Tissue Removed Subcutaneous -Post Debridement (cm) - Length 2 -Post Debridement (cm) - Width 1.4 -Post Debridement (cm) - Depth 0.9 -Total Square (Post) (cm) 2.8 -Area of Debridement (cm) - Length 2.0 -Area of Debridement (cm) - Width 1.4 -Total Square (Area) (cm) 2.80 -Tunneling No -Undermining/Tunneling No -Circular Undermining No -Wound/Ulcer Outcome Not Healed -Ulcer Cleansing Rinsed/ Irrigated with Saline -Foul Odor after Cleansing No -Bioengineered Tissue No -Bleeding Controlled with Pressure -Treatment Response Procedure Tolerated Well -Offloading Yes -Type of Offloading Surgical Shoe -Debridement - Subq, 1st 20sq cm Yes Pain Scale: 0-10 Numeric Is Patient Pain Free? Yes
--- NOTE | 2022-02-05 09:55 | PCM.WC.PN ---
History of Present Illness Date of Service: 02/05/22 Progress of Wound: 81-year-old male underwent incision and drainage of deep abscess to left plantar foot on 11/30/2021. patient denies constitutional symptoms today. Pain was well controlled. Patient off antibiotics at this time he was discharged on Augmentin and ciprofloxacin. No residual signs of infection. Since the patient's discharge he has been ambulating on his left foot wound. Patient was discharged from [facility] facility due to noncompliance with wound VAC and nonweightbearing. Patient presents today ambulating in normal shoe gear. Patient denies constitutional symptoms or signs of infection. No other complaints. Patient given new offloading pad by Dr. Oliver, patient remove this and discontinued use as it was making him off level. Objective Data Objective Data Vital Signs: Vital Signs Temp Pulse Resp BP 96.7 F L 64 19 H 140/63 H 02/05/22 08:50 02/05/22 08:50 02/05/22 08:50 02/05/22 08:50 Weight: 100.244 kg Body Mass Index (BMI) 41.7 Physical Exam Narrative Patient AOx3. Neurovascular status unchanged from previous evaluation. Full-thickness wound granulating in well demonstrates good healing potential. Improving depth. No residual signs of infection. No pain with calf squeeze or palpation of popliteal fossa muscular strength full to bilateral lower extremity compartments. Debridement Note Debridement Note Post-Debridement Measurements and Additional Note: Post-Debridement Measurements/Treatment WC - Nurse 1 - General Ulcer Assessment Start: 02/05/22 08:50 Freq: Status: Active Protocol: KRISTY.LOWEXT Activity Type Activity Date Activity User E-sign Co-sign Detail Recorded Client Recorded Date Recorded By Document 02/05/22 08:50 [id number] 02/05/22 08:59 02/05/22 08:50 - Today's Visit Information Type of service Follow-up Visit (Physician/ASSOCIATE PROFESSOR OF LITERATURE ) Arrival Mode Ambulatory Patient Identification Verified (Name & Yes ) Patient Requires Transmission-Based No Precautions Finger Stick Blood Sugar(mg/dl) (if 77 indicated): Blood Sugar Stated by Patient Height and Weight Body Mass Index (BMI) 41.7 BMI Classification Obese Vital Signs Temperature (97.8 F-99.1 F) 96.7 F L Temperature Source Temporal Pulse Rate (60-100) 64 Pulse Location Monitor Respiratory Rate (12-18) 19 H Respiratory rate source Observation Blood Pressure (90/60-120/80) 140/63 H Blood Pressure Mean (mm Hg) 88 Source Monitor Position Semi-Fowlers Blood Pressure Location Left Arm History Since Last Visit- (Skip if this is Patient's initial visit) Have you changed medications since your No last visit? Any new allergies or adverse reactions No Had a fall/change in ADL's that may No increase risk of falls Signs or symptoms of abuse and/or No neglect since last visit Have you been in the hospital since your No last visit? Has dressing in place as prescribed Yes Has compression in place as prescribed N/A Has offloadiing in place as prescribed Yes Experienced any changes in pain level or No management Left Footwear Surgical Shoe with pressure relief insole Right Footwear Regular Shoe Pain Scale: 0-10 Numeric Is Patient Pain Free? Yes WC - Nurse 1 - General Ulcer Measurement Start: 02/05/22 08:50 Freq: Status: Active Protocol: Activity Type Activity Date Activity User E-sign Co-sign Detail Recorded Client Recorded Date Recorded By Document 02/05/22 08:50 [id number] 02/05/22 08:59 02/05/22 08:50 Wound Center Nurse 1 #1- L PLANTAR -Combined with other wound No -Current Size (cm) - Length 2.0 -Current Size (cm) - Width 1.3 -Current Size (cm) - Depth 0.9 -Total Square Cm 2.60 -Photo Taken Yes -Epithelialization Small 1-33% -Tunneling No -Undermining/Tunneling No -Circular Undermining No -Exudate Amt Small -Exudate Type Serosanguineous -Wound Margin Flat & Intact -Granulation Amt Large (67-100%) -Granulation Quality Red -Slough/Fibrin Yes -Necrosis Amt Small (1-33%) -Necrotic Tissue Type Adherent Slough -Structure Exposed N/A -Texture (Susan-wound Skin Appearance) Assessed,Callus -Moisture (Susan-wound Skin Appearance) Assessed -Color (Susan-wound Skin Appearance) Assessed -Temperature (Susan-wound Skin No Abnormality Appearance) (Pt Warm) -Tenderness on Palpation (Susan-wound No Skin Appearance) -Ulcer Cleansing Wound Cleanser -Foul Odor after Cleansing No -Anesthetic Used 5% Lidocaine Gel Lower Limb Edema Present No WC - Nurse 2 - General Ulcer CM Notes Start: 02/05/22 08:50 Freq: Status: Active Protocol: Activity Type Activity Date Activity User E-sign Co-sign Detail Recorded Client Recorded Date Recorded By Document 02/05/22 09:04 LARRY [id number] 02/05/22 09:12 LARRY 02/05/22 09:04 Wound Center Nurse 2 #1- L PLANTAR -Time 09:04 -Correct Patient Yes -Correct Side, Site, Position Yes -Correct Procedure Yes -Procedure Performed Yes -Type of Procedure Debridement -Clinical Debridement Subcutaneous -Tissue Removed Subcutaneous -Post Debridement (cm) - Length 2 -Post Debridement (cm) - Width 1.4 -Post Debridement (cm) - Depth 0.9 -Total Square (Post) (cm) 2.8 -Area of Debridement (cm) - Length 2.0 -Area of Debridement (cm) - Width 1.4 -Total Square (Area) (cm) 2.80 -Tunneling No -Undermining/Tunneling No -Circular Undermining No -Wound/Ulcer Outcome Not Healed -Ulcer Cleansing Rinsed/ Irrigated with Saline -Foul Odor after Cleansing No -Bioengineered Tissue No -Bleeding Controlled with Pressure -Treatment Response Procedure Tolerated Well -Offloading Yes -Type of Offloading Surgical Shoe -Debridement - Subq, 1st 20sq cm Yes Pain Scale: 0-10 Numeric Is Patient Pain Free? Yes - Nurse 3 - General Ulcer D/C NN Start: 02/05/22 08:50 Freq: Status: Active Protocol: Activity Type Activity Date Activity User E-sign Co-sign Detail Recorded Client Recorded Date Recorded By Document 02/05/22 09:28 [id number] 02/05/22 09:29 DL 02/05/22 09:28 Wound Care Nurse 3 #1- L PLANTAR -Ulcer Cleansing Rinsed/ Irrigated with Saline -Foul Odor after Cleansing No -Other Dressing dakins -Primary Dressing Covered/Secured with Dry Gauze & Roll Gauze, Secured with Tape Treatment Response Procedure Tolerated Well Pain Scale: 0-10 Numeric Is Patient Pain Free? Yes WC - Visit Discharge Discharge Condition Stable Ambulatory Status Ambulatory Transportation Private [facility] Facility Type Home Health Orders Sent Yes Assessment/Plan Assessment/Plan (1) Type 2 diabetes mellitus with diabetic polyneuropathy: CODE(S): E11.42 - Type 2 diabetes mellitus with diabetic polyneuropathy (2) Non-pressure chronic ulcer of other part of left foot with fat layer exposed: CODE(S): L97.522 - Non-pressure chronic ulcer of other part of left foot with fat layer exposed PLAN: Exam performed. Wound slightly improved today. Attempted skin grafting, but due to $275 co-pay patient defers at this time. Patient noncompliant with treatment specifically weightbearing restrictions. I recommend nonweightbearing. Patient unwilling to accommodate this. Patient offloading with surgical shoe and offloading pad. Notes that he is less ambulatory throughout the day. I discussed that due to his diabetes and his ambulatory status patient will likely not heal his wound. Ultimate risk is more proximal amputation or life-threatening infection. Wound to left foot with was excisionally debrided down to including level of subcutaneous tissue of all nonviable tissue using 5 mm dermal curette. Hemostasis obtained with light compression. No anesthesia due to neuropathy. Patient tolerated procedure well patient consented procedure. Pre and post debridement measurements document nursing notes. Wound cultured we will continue Dakin's every third day performed by home health care dressing changes and asked for the third dressing of the week. Patient follow-up in 1 week.
[2022-02-19 09:18] VITALS: BP 141/62; PULSE 66; RESP 18; TEMP 36.3; BMI 41.7
== END 2022-03-02 23:59 | disposition home or self-care (01) ==
LOC: WC 09:00
PROVIDERS: PCP Family Medicine; Visit Provider Podiatrist
DX: E11.42 Type 2 diabetes mellitus with diabetic polyneuropathy (principal); L97.522 Non-pressure chronic ulcer of other part of left foot with fat layer exposed
CPT/HCPCS: 11042; 99213; G0463

== ENCOUNTER 2022-03-01 09:32 | Inpatient (IN) | payer MEDICARE, SELFPAY ==
[2022-03-01] VITALS (16 sets, daily range): BP systolic 98–130; BP diastolic 51–61; PULSE 56–88; RESP 16–18; TEMP 36.2–37.6; O2SAT 93–99; BMI 30.1; BMI 29.2
--- NOTE | 2022-03-01 10:22 | EKG12_ITS ---
Test Reason : Blood Pressure : / mmHG Vent. Rate : 074 BPM Atrial Rate : 074 BPM P-R Int : 202 ms QRS Dur : 082 ms QT Int : 378 ms P-R-T Axes : -14 023 243 degrees QTc Int : 419 ms Normal sinus rhythm Inferior infarct , age undetermined , cannot be excluded Nonspecific ST and T wave abnormality Abnormal ECG Confirmed by HUBERT MIDDLETON, JAMA ([id number]), editor dictionary KENDALL VICK ([id number]) on 03/05/2022 10:44:42 AM Referred By: SUMEET Confirmed By:JAMA GASPAR MD
--- NOTE | 2022-03-01 10:26 | EX.ED.DYSGE1 ---
HPI History of Present Illness Chief Complaint: Lower Extremity Injury Detail of Chief Complaint: Purple/black toes Informant: patient and spouse/S.O. Limited: other (Patient is hard of hearing and cantankerous.) Onset/Context/Timing Onset: Days (Per HPI narrative since there are varying time frames) Context: - (Documented HPI narrative) Timing: Continuous Quality: Swollen, erythematous foot with discolored toes Location: Left Current Severity: Moderate Maximum Severity: Moderate Worsened by: Diabetic foot infection and PAD Relieved by: Nothing Associated Symptoms Associated Symptoms: Denies constitutional symptoms. Denies trauma. Narrative Narrative: Patient is an 81-year-old elderly male who is very hard of hearing and a poor informant.. Spouse had to supplement significantly. He is under the care of Dr. Froilan mcclellan. He was last seen 2 weeks ago. Several days ago his foot became red. Overnight he has had a black-purple second left toe and discoloration of the third toe. He denies pain. He is diabetic. He has not checked his blood sugar recently. He denies fever, chills night sweats. He was unaware that there was drainage from the second toe i.e. blood. He denies leg or thigh pain. He does endorse nausea without vomiting or diarrhea. He denies urologic symptoms. 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 coronary artery of robinson heart without angina pectoris Bacteremia Bone fracture Cellulitis of right lower extremity Delayed wound healing Dizziness DM type 2, uncontrolled, with renal complications Essential hypertension Hearing problem Hyperlipidemia Hyperlipidemia associated with type 2 diabetes mellitus Malnutrition Obesity Osteomyelitis of foot, acute PAD (peripheral artery disease) Pneumonia Restless legs Stage 4 chronic kidney disease due to type 2 diabetes mellitus 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 Uncontrolled type 2 diabetes mellitus, with long-term current use of insulin Home Medications aspirin 81 mg tablet,delayed release (Adult Aspirin Regimen) 81 mg PO DAILY heart 05/29/17 [History Last Taken 11/21/21] coenzyme Q10 100 mg capsule (Co Q-10) 100 mg PO DAILY supplement 06/04/17 [History Last Taken 11/21/21] xybgcuwt-jsi-wgbmn acid 0.4 mg-lycopene 300 mcg-lutein 250 mcg tablet 1 tab PO DAILY supplement 08/21/18 [History Last Taken 11/21/21] calcium carb-vit B4-luwqkswpj-rrzk 333 mg-200 unit-133 mg-5 mg tablet 1 tab PO DAILY supplement 10/18/19 [History Last Taken 11/21/21] omega-3 fatty acids 1,000 mg capsule (Fish Oil Concentrate) 1,000 mg PO BID 10/18/19 [History Last Taken Unknown] amiloride 5 mg tablet 5 mg PO BID heart #180 tabs 10/05/20 [Rx Last Taken 11/21/21] doxazosin 2 mg tablet 2 mg PO BID prostate #180 tabs 10/05/20 [Rx Last Taken 11/21/21] losartan 50 mg tablet 50 mg PO DAILY heart 08/10/21 [History Last Taken 11/21/21] insulin lispro 100 unit/mL subcutaneous pen See Protocol subcut ACHS dm 11/21/21 [History Last Taken 11/21/21] metoprolol succinate 25 mg tablet,extended release 24 hr 12.5 mg PO BID heart 11/21/21 [History Last Taken 11/21/21] amoxicillin 875 mg-potassium clavulanate 125 mg tablet 875 mg PO BID 10 days #18 tabs 11/26/21 [Rx Last Taken Unknown] ciprofloxacin HCl 500 mg tablet 500 mg PO BID 10 days #20 tabs 11/26/21 [Rx Last Taken Unknown] enoxaparin 40 mg/0.4 mL subcutaneous syringe 40 mg (0.4 mL) subcut DAILY dvt prophylaxis #12 mL 11/26/21 [Rx Last Taken Unknown] Lantus Solostar U-100 Insulin 100 unit/mL (3 mL) subcutaneous pen (insulin glargine) 25 unit (0.25 mL) subcut BID #15 mL 12/18/21 [Rx Last Taken Unknown] Novolog Flexpen U-100 Insulin 100 unit/mL (3 mL) subcutaneous (insulin aspart U-100) 15 unit (0.15 mL) subcut TID #15 mL 12/18/21 [Rx Last Taken Unknown] blood sugar diagnostic (Accu-Chek Guide test strips) #100 ea 12/18/21 [Rx Last Taken Unknown] pen needle, diabetic 32 gauge x 5/32 (BD Ultra-Fine Sammie Pen Needle) #150 ea 12/18/21 [Rx Last Taken Unknown] ciprofloxacin HCl 750 mg tablet 750 mg PO BID #28 tabs 01/01/22 [Rx Last Taken Unknown] doxycycline hyclate 100 mg tablet 100 mg PO BID #28 tabs 01/01/22 [Rx Last Taken Unknown] Allergy/AdvReac Type Severity Reaction Status Date / Time glyburide Allergy Intermediate Unknown Verified 03/01/22 12:18 Iodinated Contrast Media Allergy Rash Verified 03/01/22 12:18 [CONTRASTS] amlodipine [From Norvasc] AdvReac Unknown Unknown Verified 03/01/22 12:18 atorvastatin [From Lipitor] AdvReac Unknown Unknown Verified 03/01/22 12:18 cerivastatin [From Baycol] AdvReac Unknown Unknown Verified 03/01/22 12:18 enalapril AdvReac Unknown Unknown Verified 03/01/22 12:18 exenatide [From Byetta] AdvReac Unknown Unknown Verified 03/01/22 12:18 ezetimibe [From Zetia] AdvReac Unknown Unknown Verified 03/01/22 12:18 fenofibrate [From Tricor] AdvReac Unknown Unknown Verified 03/01/22 12:18 gemfibrozil AdvReac Unknown Unknown Verified 03/01/22 12:18 glipizide [From Glucotrol] AdvReac Unknown Unknown Verified 03/01/22 12:18 labetalol AdvReac Unknown Unknown Verified 03/01/22 12:18 lovastatin [From Mevacor] AdvReac Unknown Unknown Verified 03/01/22 12:18 metformin [From Glucophage] AdvReac Unknown Unknown Verified 03/01/22 12:18 niacin AdvReac Unknown Unknown Verified 03/01/22 12:18 [From Niaspan Extended-Release] nifedipine [From Adalat] AdvReac Unknown Unknown Verified 03/01/22 12:18 quinapril [From Accupril] AdvReac Unknown Unknown Verified 03/01/22 12:18 repaglinide [From Prandin] AdvReac Unknown Unknown Verified 03/01/22 12:18 rosuvastatin [From Crestor] AdvReac Unknown Unknown Verified 03/01/22 12:18 simvastatin [From Zocor] AdvReac Unknown Unknown Verified 03/01/22 12:18 Family History Mother Diabetes Father , Age 56 Myocardial infarction Brother Diabetes Brother Diabetes Brother Multiple sclerosis Surgical History History of coronary artery bypass graft History of lung surgery 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 Kevon Christina MD) household members: spouse Smoking Status: Never smoker second hand exposure: No alcohol intake: never substance use type: does not use ROS ROS ED Constitutional Constitutional ED: Denies chills, fever(s), subjective, sweats or weight loss Eyes Eyes: Denies blurry vision, change in vision or diplopia ENT ENT ED: Reports other Details: Hard of hearing ; Denies ear pain, rhinorrhea or sore throat Cardiovascular Cardiovascular: Denies chest pain, orthopnea, palpitations, paroxysmal nocturnal dyspnea or racing heartbeat Respiratory/Chest Respiratory/Chest: Reports cough, sputum and other Details: Sputum is chronic. No change in color. ; Denies dyspnea, dyspnea on exertion, orthopnea or paroxysmal nocturnal dyspnea Gastrointestinal Gastrointestinal: Reports nausea; Denies abdominal pain, diarrhea or vomiting Genitourinary Genitourinary ED: Denies dysuria, hematuria or urinary frequency Musculoskeletal Musculoskeletal: Denies arthralgias, back pain, myalgias or neck pain Integumentary Reports rash; Denies abscess or Abrasions Neurologic Neurologic: Denies headache(s) or weakness Endocrine Endocrinology: Denies cold intolerance, heat intolerance, polydipsia or polyuria Hematologic/Lymphatic Hematologic/Lymphatic: Reports systems reviewed and no addt'l complaints, except as documented EXAM Physical Exam Const Vital Signs: 03/01/22 09:33 Temperature 97.2 F L Temperature Source Temporal Pulse Rate 88 Respiratory Rate 18 Blood Pressure 98/55 L Blood Pressure Mean 69 Pulse Ox 98 Oxygen Delivery Method Room Air Positive well nourished and well developed General Appearance ED: well developed, NAD and pallor; Negative for cyanotic or diaphoretic HEENT Reports moist mucous membranes HEENT Narrative: Head is atraumatic normocephalic. Ears normal. Nares patent. Mucosa moist. Posterior pharynx out erythema or exudate. Eyes PERRL and EOMs intact bilaterally General Eye ED: Negative for pale conjunctiva or scleral icterus Neck no lymphadenopathy, supple and no JVD Resp normal respiratory effort and clear to auscultation bilaterally Cardio regular rate, regular rhythm, S1 normal heart sound, S2 normal heart sound and no murmurs GI normal to inspection, nondistended, normoactive bowel sounds, non-tender, non-distended and no masses; Negative for hepatosplenomegaly Back/Spine no CVA tenderness Thoracic Spine / Upper Back: Negative for thoracic spinal tenderness Lumbar Spine / Lower Back: Negative for lumbar spinal tenderness Extremity Extremity Narrative: Patient has amputation mid right foot. The left foot is erythematous with involvement of the great, and fourth toe. The second and third toe are black. There is blood noted dorsal medial side of the second toe. There is a break in skin. Pulses were not palpable. Will need ultrasound to assess for flow. Neuro oriented x3, CN's II-XII intact bilaterally and No no sensory deficits noted Sensorium / Orientation: alert Psych Psych Narrative: Abrupt, angry and flat affect. Skin No no rashes or lesions noted, No no wounds and No skin turgor normal General Skin Exam: pallor; Negative for jaundice Rashes: rashes noted MDM MDM MDM Narrative Medical decision making narrative: Patient has a diabetic foot ulcer proximal lateral side of left foot on the plantar surface that is down to the fat. Does not appear infected. There is evidence of cellulitis of the foot with possible ischemia or trauma to the toe since patient is a poor informant. Will obtain x-ray to assess for fracture as well as osteomyelitis. He does have evidence of cellulitis. Because he is diabetic will obtain BMP to assess renal function specimens he has history of stage IV chronic kidney disease due to his diabetes as well as glucose and anion gap. CBC to assess white count and differential. Also to assess H&H since he appears pale. Lactate was ordered since there is concern for infection and possible sepsis. ESR and CRP because of concern for infection and specifically osteo-. Since he is only had redness to the foot for several days osteomyelitis may not be present on the x-ray but would be helpful with regards to trauma since his toe is purple and possibly ecchymotic. X-rays reveal subcutaneous air. Music Typographer was placed on page. Spoke with Dr. Mckenna who is on-call for the group. He was made aware. He was aware of patient's labs. He was informed of antibiotic treatment. Patient requires emergent surgery. Hospitalist was called for admission since patient has multiple medical problems. Patient has monophasic DP flow and biphasic PT flow. Lab Data Attestation: I reviewed the patient's lab results. Lab results narrative: Patient does have a white count with shift. CRP is markedly elevated, 329. Lactate is normal. Albumin is low, 2.4. Creatinine is 2.51 with a GFR of 26. Labs: Laboratory Results - last 24 hr 03/01/22 03/01/22 03/01/22 10:30 10:30 10:30 WBC 16.7 H RBC 3.94 L Hgb 10.9 L Hct 33.1 L MCV 84.0 MCH 27.7 MCHC 32.9 RDW Std Deviation 39.5 RDW Coeff of Kelsey 12.9 Plt Count 323 MPV 9.2 Immature Gran % (Auto) 0.400 Neut % (Auto) 83.2 H Lymph % (Auto) 8.9 L [place] % (Auto) 7.2 Eos % (Auto) 0.1 Baso % (Auto) 0.2 Absolute Neuts (auto) 13.9 H Absolute Lymphs (auto) 1.48 Nucleated RBC % 0 ESR > 130 H PT INR APTT Sodium 133 L Potassium 4.5 Chloride 102 Carbon Dioxide 24.0 Anion Gap 7 BUN 51 H Creatinine 2.51 H Estim Creat Clear Calc 24.58 Est GFR (MDRD) Af Amer 32 L Est GFR (MDRD) Non-Af 26 L BUN/Creatinine Ratio 20.3 H Glucose 272 H Lactic Acid 1.6 Calcium 9.8 Total Bilirubin 0.70 AST 34 ALT 25 Alkaline Phosphatase 131 H C-React Prot Ext Range 329.00 H Total Protein 8.5 H Albumin 2.4 L Globulin 6.1 H Albumin/Globulin Ratio 0.4 L 03/01/22 11:05 WBC RBC Hgb Hct MCV MCH MCHC RDW Std Deviation RDW Coeff of Kelsey Plt Count MPV Immature Gran % (Auto) Neut % (Auto) Lymph % (Auto) [place] % (Auto) Eos % (Auto) Baso % (Auto) Absolute Neuts (auto) Absolute Lymphs (auto) Nucleated RBC % ESR PT 15.9 H INR 1.3 APTT 30.8 Sodium Potassium Chloride Carbon Dioxide Anion Gap BUN Creatinine Estim Creat Clear Calc Est GFR (MDRD) Af Amer Est GFR (MDRD) Non-Af BUN/Creatinine Ratio Glucose Lactic Acid Calcium Total Bilirubin AST ALT Alkaline Phosphatase C-React Prot Ext Range Total Protein Albumin Globulin Albumin/Globulin Ratio Radiography Chest X-Ray - ED: Read by ED Physician (Three-view x-ray of the left foot reveals subcutaneous air involving the second and third toe. There is no obvious radiolucency. I do not believe there is any periosteal ovation. Awaiting formal read by radiologist.) Diagnostic Testing: Clinical Impression(s) from Imaging Studies Foot X-Ray 03/01/22 11:35 IMPRESSION: Foot ulcers with soft tissue gas and swelling and likely underlying acute osteomyelitis. Electronically Signed: Fermin Ivey, at 12:03 EST , EKG Initial EKG: Attestation: I personally reviewed and interpreted this EKG as follows: Interpretation: Sinus Rhythm (Ventricular rate 74. Computer is reading inferior infarct of undetermined etiology. There is a slight upward deflection before the Q wave is noted. MD interval is 202 ms. QS duration 82 ms. Citra is normal.) Critical Care Time Critical Care Time: Yes Critical care time (excluding procedures): 30-74 minutes (32), Including time spent: (History, physical, documentation, interpretation laboratory results and x-ray and initiation of appropriate therapy), Discussing w/Patient &/or Family/Supervisor [employer] (Patient and have been made aware of lab results and consultation with podiatry and need for emergent surgery and admission), Discussing w/Consultants (Dr. Mckenna the management consultant for operative intervention) and Arranging Admission or Transfer (Spoke with Dr. Garza who will admit patient. She has been made aware of patient's history, physical laboratory results and need for surgery) Discharge Plan Dx/Rx/DC Orders Clinical Impression: Sepsis without acute organ dysfunction, Hyperlipidemia, Essential hypertension, Atherosclerosis of coronary artery of robinson heart without angina pectoris, Peripheral vascular disease, unspecified, Type 2 diabetes mellitus with diabetic polyneuropathy, Obesity, Stage 4 chronic kidney disease due to type 2 diabetes mellitus, Type 2 diabetes mellitus with diabetic foot infection, Gangrene of toe of left foot, Plantar ulcer of left foot Disposition Disposition: [facility] Care [facility]
[2022-03-01 11:05] LABS: Absolute Lymphocyte Count 1.48 X10^3/uL (0.83-4.51); Absolute Neutrophil Count 13.9 X10^3/uL (2.0-7.7); Basophil# 0.04 X10^3/uL; Basophil% 0.2 % (0-1); Eosinophil# 0.02 X10^3/uL; Eosinophils% 0.1 % (0-5); Hematocrit 33.1 % (40-54); Hemoglobin 10.9 g/dL (13.0-16.5); Lymphocyte # 1.48 X10^3/ul (0.83-4.51); Lymphocyte % 8.9 % (19-41); Mean Corp Hgb Conc 32.9 g/dL (32-36); Mean Corpuscular Hgb 27.7 pg (27.0-32.0); Mean Platelet Vol. 9.2 fl (6.2-12.0); Monocyte% 7.2 % (0-10); NRBC Flagged by Analyzer 0 % (0-5); Neutrophil # 13.86 X10^3/uL (2.7-7.7); Neutrophil % 83.2 % (47-70); Platelet Count 323 K/mm3 (150-450); RBC Distribution Width CV 12.9 % (11.6-14.6); RBC Distribution Width SD 39.5 fl (35.1-43.9); Red Blood Count 3.94 M/mm3 (4.6-6.2); White Blood Count 16.7 K/mm3 (4.4-11.0)
[2022-03-01] MEDS: 0.9% Normal Saline 1,000 ML 250 ML IV ×2 (11:17→19:33)
[2022-03-01 11:23] LABS: Lactic Acid 1.6 mmol/L (0.4-1.9)
[2022-03-01 11:27] LABS: International Normalized Ratio 1.3; Prothrombin Time (Protime)PT. 15.9 SECONDS (11.7-14.9)
[2022-03-01 11:28] LABS: Partial Thromboplast Time 30.8 Seconds (24.1-36.2)
[2022-03-01 11:33] LABS: ALB/GLOB Ratio 0.4 RATIO (0.9-2.4); AST(SGOT) 34 U/L (15-37); Alanine Aminotransfer ALT/SGPT 25 U/L (16-61); Albumin, Serum 2.4 g/dL (3.2-5.0); Alkaline Phosphatase 131 U/L (45-117); Anion Gap 7 (5-15); BUN 51 mg/dL (7-18); BUN/Creat Ratio 20.3 RATIO (10-20); Calcium,Total 9.8 mg/dL (8.5-10.1); Chloride 102 mmol/L (98-107); Creatinine, Serum 2.51 mg/dL (0.70-1.30); EST Glomerular Filtration Rate 26 mL/min (>60); Est Glom Filt Rate - Afr Amer 32 mL/min (>60); Estimated Creatinine Clearance 24.58 ml/min; Globulin 6.1 g/dL (2.2-4.2); Glucose 272 mg/dL (74-106); Potassium 4.5 mmol/L (3.5-5.1); Protein, Total 8.5 g/dL (6.4-8.2); Sodium Level 133 mmol/L (136-145)
--- NOTE | 2022-03-01 11:35 | RAD_ITS ---
INDICATION: Injury/Pain -- In for good tabetic foot ulcer and gangrene second EXAMINATION/TECHNIQUE: X-RAY - LEFT XR Foot Min 3 Views 3 VIEWS COMPARISON: 01/22/2022, 11/21/2021. FINDINGS: There is an ulceration along the plantar surface underlying the distal metatarsal bones. There is soft tissue gas and swelling predominantly overlying the second through fourth MTP joints.. There is progression of destructive or erosive changes involving the fourth metatarsal head and fourth proximal phalanx. There are also suspected lytic areas along the second and third metatarsal heads. RAD/Foot min 3 Views IMPRESSION: Foot ulcers with soft tissue gas and swelling and likely underlying acute osteomyelitis. Electronically Signed: Fermin Ivey, at 12:03 EST ,
[2022-03-01] MEDS: Clindamycin 600 MG/50 ML BAG 100 MG IV ×2 (12:13→21:27)
[2022-03-01 12:23] LABS: Erythrocyte Sedimentation Rate > 130 mm/hr (0-20)
--- NOTE | 2022-03-01 13:02 | PCM.HP.STD ---
[facility] - General General Date of Admission: 03/01/22 Date of Service: 03/01/22 HPI Narrative PAULINA OSORIO, is a 81 M with a history of type 2 diabetes mellitus, CKD stage IV, peripheral vascular disease, peripheral neuropathy, coronary artery disease status post CABG, hypertension who presented to [facility] 03/01/2022 with several hours of a black toe on his left foot. He has had trouble with his left foot with cellulitis over the past 8 months and has felt worse over the past couple weeks but this morning he woke up and noticed that his toe was black. He presented to the emergency department he was noted to have evidence of cellulitis x-ray revealed subcutaneous air and ESR and CRP were significantly elevated. Patient given Comycin, Zosyn, clindamycin. He was also noted to have monophasic DP flow and biphasic PT flow. Pharmaceutical Representative on-call Dr. Mckenna was contacted and patient was taken to the OR, hospitalist contacted for admission due to his multiple medical comorbidities. Patient was evaluated in the ER prior to his surgery and he reported that pain comes and goes but overall is not significant. 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 Over the past few days to week has been having chills and twitching in the leg and is felt somewhat dizzy intermittently but had no note of any black digits until he woke up this morning. Does follow with podiatry in the wound clinic chronically. Does report is sick with a cold and he has had a slight cough but denied any other physical complaints. [facility] Medical History Atherosclerosis of coronary artery bypass graft of [place] heart Atherosclerosis of coronary artery of [place] heart without angina pectoris Bacteremia Bone fracture Cellulitis of right lower extremity Delayed wound healing Dizziness DM type 2, uncontrolled, with renal complications Essential hypertension Hearing problem Hyperlipidemia Hyperlipidemia associated with type 2 diabetes mellitus Malnutrition Obesity Osteomyelitis of foot, acute PAD (peripheral artery disease) Pneumonia Restless legs Stage 4 chronic kidney disease due to type 2 diabetes mellitus 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 Uncontrolled type 2 diabetes mellitus, with long-term current use of insulin Home Medications aspirin 81 mg tablet,delayed release (Adult Aspirin Regimen) 81 mg PO DAILY heart 05/29/17 [History Last Taken 11/21/21] coenzyme Q10 100 mg capsule (Co Q-10) 100 mg PO DAILY supplement 06/04/17 [History Last Taken 11/21/21] wrzthvqi-vbu-ktncx acid 0.4 mg-lycopene 300 mcg-lutein 250 mcg tablet 1 tab PO DAILY supplement 08/21/18 [History Last Taken 11/21/21] calcium carb-vit P9-kxxondecx-pubx 333 mg-200 unit-133 mg-5 mg tablet 1 tab PO DAILY supplement 10/18/19 [History Last Taken 11/21/21] omega-3 fatty acids 1,000 mg capsule (Fish Oil Concentrate) 1,000 mg PO BID 10/18/19 [History Last Taken Unknown] amiloride 5 mg tablet 5 mg PO BID heart #180 tabs 10/05/20 [Rx Last Taken 11/21/21] doxazosin 2 mg tablet 2 mg PO BID prostate #180 tabs 10/05/20 [Rx Last Taken 11/21/21] losartan 50 mg tablet 50 mg PO DAILY heart 08/10/21 [History Last Taken 11/21/21] insulin lispro 100 unit/mL subcutaneous pen See Protocol subcut ACHS dm 11/21/21 [History Last Taken 11/21/21] metoprolol succinate 25 mg tablet,extended release 24 hr 12.5 mg PO BID heart 11/21/21 [History Last Taken 11/21/21] amoxicillin 875 mg-potassium clavulanate 125 mg tablet 875 mg PO BID 10 days #18 tabs 11/26/21 [Rx Last Taken Unknown] ciprofloxacin HCl 500 mg tablet 500 mg PO BID 10 days #20 tabs 11/26/21 [Rx Last Taken Unknown] enoxaparin 40 mg/0.4 mL subcutaneous syringe 40 mg (0.4 mL) subcut DAILY dvt prophylaxis #12 mL 11/26/21 [Rx Last Taken Unknown] Lantus Solostar U-100 Insulin 100 unit/mL (3 mL) subcutaneous pen (insulin glargine) 25 unit (0.25 mL) subcut BID #15 mL 12/18/21 [Rx Last Taken Unknown] Novolog Flexpen U-100 Insulin 100 unit/mL (3 mL) subcutaneous (insulin aspart U-100) 15 unit (0.15 mL) subcut TID #15 mL 12/18/21 [Rx Last Taken Unknown] blood sugar diagnostic (Accu-Chek Guide test strips) #100 ea 12/18/21 [Rx Last Taken Unknown] pen needle, diabetic 32 gauge x 5/32 (BD Ultra-Fine Sammie Pen Needle) #150 ea 12/18/21 [Rx Last Taken Unknown] ciprofloxacin HCl 750 mg tablet 750 mg PO BID #28 tabs 01/01/22 [Rx Last Taken Unknown] doxycycline hyclate 100 mg tablet 100 mg PO BID #28 tabs 01/01/22 [Rx Last Taken Unknown] Allergy/AdvReac Type Severity Reaction Status Date / Time glyburide Allergy Intermediate Unknown Verified 03/01/22 12:18 Iodinated Contrast Media Allergy Rash Verified 03/01/22 12:18 [CONTRASTS] amlodipine [From Norvasc] AdvReac Unknown Unknown Verified 03/01/22 12:18 atorvastatin [From Lipitor] AdvReac Unknown Unknown Verified 03/01/22 12:18 cerivastatin [From Baycol] AdvReac Unknown Unknown Verified 03/01/22 12:18 enalapril AdvReac Unknown Unknown Verified 03/01/22 12:18 exenatide [From Byetta] AdvReac Unknown Unknown Verified 03/01/22 12:18 ezetimibe [From Zetia] AdvReac Unknown Unknown Verified 03/01/22 12:18 fenofibrate [From Tricor] AdvReac Unknown Unknown Verified 03/01/22 12:18 gemfibrozil AdvReac Unknown Unknown Verified 03/01/22 12:18 glipizide [From Glucotrol] AdvReac Unknown Unknown Verified 03/01/22 12:18 labetalol AdvReac Unknown Unknown Verified 03/01/22 12:18 lovastatin [From Mevacor] AdvReac Unknown Unknown Verified 03/01/22 12:18 metformin [From Glucophage] AdvReac Unknown Unknown Verified 03/01/22 12:18 niacin AdvReac Unknown Unknown Verified 03/01/22 12:18 [From Niaspan Extended-Release] nifedipine [From Adalat] AdvReac Unknown Unknown Verified 03/01/22 12:18 quinapril [From Accupril] AdvReac Unknown Unknown Verified 03/01/22 12:18 repaglinide [From Prandin] AdvReac Unknown Unknown Verified 03/01/22 12:18 rosuvastatin [From Crestor] AdvReac Unknown Unknown Verified 03/01/22 12:18 simvastatin [From Zocor] AdvReac Unknown Unknown Verified 03/01/22 12:18 Family History Mother Diabetes Father , Age 56 Myocardial infarction Brother Diabetes Brother Diabetes Brother Multiple sclerosis Surgical History History of coronary artery bypass graft History of lung surgery 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 Kevon Christina MD) household members: spouse Smoking Status: Never smoker second hand exposure: No alcohol intake: never substance use type: does not use ROS Constitutional Constitutional: Reports chills; Denies change in weight or fever(s) Eyes Eyes: Denies change in vision ENT HEENT: Denies headache(s), nasal congestion or sore throat Cardiovascular Cardiovascular: Denies chest pain or palpitations Respiratory/Chest Respiratory/Chest: Reports cough and productive cough; Denies shortness of breath at rest Gastrointestinal Gastrointestinal: Reports other Details: denies changes in bowel or bladder ; Denies abdominal pain Genitourinary Genitourinary: Reports other Details: denies changes in urination Musculoskeletal Musculoskeletal: Reports other Details: Left foot pain Neurologic Neurologic: Reports other Details: Has had some weakness and falls Psychiatric Psychiatric: Denies anxiety Hematologic/Lymphatic Hematologic/Lymphatic: Denies easy bleeding Allergic/Immunologic Allergic/Immunologic: Reports other Details: Has erythema on left foot with ulcer noted on plantar surface and has black digit which is cold compared to surrounding area Vital Signs Vital Signs Vital Signs: 03/01/22 09:33 03/01/22 10:15 03/01/22 10:30 Temperature 97.2 F L 97.4 F L 97.6 F L Temperature Source Temporal Temporal Temporal Pulse Rate 88 76 78 Respiratory Rate 18 18 16 Blood Pressure 98/55 L 109/58 L 123/58 H Blood Pressure Mean 69 75 79 Pulse Ox 98 96 96 Oxygen Delivery Method Room Air Room Air Room Air 03/01/22 11:17 03/01/22 12:00 12/30/22 12:58 Temperature 97.5 F L 97.6 F L Temperature Source Temporal Temporal Pulse Rate 73 71 Respiratory Rate 18 16 Blood Pressure 121/59 H 130/51 H Blood Pressure Mean 79 77 Pulse Ox 95 95 Oxygen Delivery Method Room Air Room Air Room Air Weight Weight: 97.976 kg Body Mass Index (BMI) 30.1 Physical Exam Const alert and no apparent distress Constitutional Narrative: Oriented HEENT normocephalic and head/scalp atraumatic Eyes Eyes Narrative: EOM grossly intact, anicteric Neck supple Resp normal respiratory effort and clear to auscultation bilaterally Cardio regular rate and regular rhythm GI soft to palpation, non-tender and non-distended Extremity Extremity Narrative: Partial amputation of her right foot, left foot with changes as below Skin Skin Narrative: Left foot erythema primarily on the dorsal aspect and roughly custodial up the foot, has black digit which is cool compared to his other digits, has ulcer that does not appear to be draining on the bottom of the foot Neuro moves all extremities Neuro Narrative: No overt focal deficits appreciated Psych Psych Narrative: Somewhat cantankerous and intermittently cooperative Results Lab / Micro Data Result Diagrams: 03/01/22 10:30 03/01/22 10:30 Labs: Laboratory Results - last 24 hr 03/01/22 10:30: WBC 16.7 H, RBC 3.94 L, Hgb 10.9 L, Hct 33.1 L, MCV 84.0, MCH 27.7, MCHC 32.9, RDW Std Deviation 39.5, RDW Coeff of Kelsey 12.9, Plt Count 323, MPV 9.2, Immature Gran % (Auto) 0.400, Neut % (Auto) 83.2 H, Lymph % (Auto) 8.9 L, [place] % (Auto) 7.2, Eos % (Auto) 0.1, Baso % (Auto) 0.2, Absolute Neuts (auto) 13.9 H, Absolute Lymphs (auto) 1.48, Nucleated RBC % 0, ESR > 130 H 03/01/22 10:30: Sodium 133 L, Potassium 4.5, Chloride 102, Carbon Dioxide 24.0, Anion Gap 7, BUN 51 H, Creatinine 2.51 H, Estim Creat Clear Calc 24.58, Est GFR (MDRD) Af Amer 32 L, Est GFR (MDRD) Non-Af 26 L, BUN/Creatinine Ratio 20.3 H, Glucose 272 H, Calcium 9.8, Total Bilirubin 0.70, AST 34, ALT 25, Alkaline Phosphatase 131 H, C-React Prot Ext Range 329.00 H, Total Protein 8.5 H, Albumin 2.4 L, Globulin 6.1 H, Albumin/Globulin Ratio 0.4 L 03/01/22 10:30: Lactic Acid 1.6 03/01/22 11:05: PT 15.9 H, INR 1.3, APTT 30.8 Radiology Impression Foot X-Ray 03/01/22 11:35 IMPRESSION: Foot ulcers with soft tissue gas and swelling and likely underlying acute osteomyelitis. Electronically Signed: Fermin Ivey, at 12:03 EST , Assessment & Plan Assessment/Plan (1) Gangrene of toe of left foot: PLAN: Plan #Gas gangrene of the left foot Foot ulcers with soft tissue gas and swelling and likely underlying acute osteomyelitis seen on x-ray of the foot White blood cell count 16.7 ESR greater than 130 and CRP 329 Patient urgently to the OR 03/[address] Mckenna ID consulted Cultures pending Vancomycin/Zosyn/clindamycin Pain control Glucose control #Type 2 diabetes mellitus We will continue 25 units twice daily of his long-acting Glucose checks and sliding scale insulin #JAMI on CKD stage IV Likely due to underlying infection Being hydrated Will trend Can consider nephrology consult if this does not improve #Coronary artery disease with a history of bypass Has multiple statins, Byetta, Zetia, fenofibrate, gemfibrozil on his allergy list but unknown reaction Pending clinical status we will resume beta-alessandra after surgery, will resume aspirin when cleared by podiatry to do so #DVT ppx: SCDs Roya Garza MD Charges/Coding Visit Charges Inpatient E&M: 15673 Init Hosp L2
--- NOTE | 2022-03-01 14:03 | PCM.CONS.GEN ---
Assessment & Plan Assessment/Plan (1) Gangrene of toe of left foot: PLAN: Gas gangrene L foot with prior R foot TMA. Cxs pending. Going to OR today for I&D. Cont vanc/zosyn/clinda. Will follow, thank you, d/w Dr. Mckenna HPI Consult Data Date of Consult: 03/01/22 HPI Narrative Reason for Consultation: gangrene HPI Narrative: PAULINA OSORIO, is a 81 M with prior R foot TMA, presented to ED this Am with 2-3 days of suddenly L 2nd toe turned black with surrounding redness and swelling. C/o moderate pain. No fever or chills. No inciting event. Came to ED, plan is for OR. Full ROS performed and neg except as noted above. [facility], [facility] Medical History Atherosclerosis of coronary artery bypass graft of [place] heart Atherosclerosis of coronary artery of [place] heart without angina pectoris Bacteremia Bone fracture Cellulitis of right lower extremity Delayed wound healing Dizziness DM type 2, uncontrolled, with renal complications Essential hypertension Hearing problem Hyperlipidemia Hyperlipidemia associated with type 2 diabetes mellitus Malnutrition Obesity Osteomyelitis of foot, acute PAD (peripheral artery disease) Pneumonia Restless legs Stage 4 chronic kidney disease due to type 2 diabetes mellitus 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 Uncontrolled type 2 diabetes mellitus, with long-term current use of insulin Home Medications aspirin 81 mg tablet,delayed release (Adult Aspirin Regimen) 81 mg PO DAILY heart 05/29/17 [History Last Taken 11/21/21] coenzyme Q10 100 mg capsule (Co Q-10) 100 mg PO DAILY supplement 06/04/17 [History Last Taken 11/21/21] shvictoq-ezx-olymz acid 0.4 mg-lycopene 300 mcg-lutein 250 mcg tablet 1 tab PO DAILY supplement 08/21/18 [History Last Taken 11/21/21] calcium carb-vit Q7-zydizcyrc-pxem 333 mg-200 unit-133 mg-5 mg tablet 1 tab PO DAILY supplement 10/18/19 [History Last Taken 11/21/21] omega-3 fatty acids 1,000 mg capsule (Fish Oil Concentrate) 1,000 mg PO BID 10/18/19 [History Last Taken Unknown] amiloride 5 mg tablet 5 mg PO BID heart #180 tabs 10/05/20 [Rx Last Taken 11/21/21] doxazosin 2 mg tablet 2 mg PO BID prostate #180 tabs 10/05/20 [Rx Last Taken 11/21/21] losartan 50 mg tablet 50 mg PO DAILY heart 08/10/21 [History Last Taken 11/21/21] insulin lispro 100 unit/mL subcutaneous pen See Protocol subcut ACHS dm 11/21/21 [History Last Taken 11/21/21] metoprolol succinate 25 mg tablet,extended release 24 hr 12.5 mg PO BID heart 11/21/21 [History Last Taken 11/21/21] amoxicillin 875 mg-potassium clavulanate 125 mg tablet 875 mg PO BID 10 days #18 tabs 11/26/21 [Rx Last Taken Unknown] ciprofloxacin HCl 500 mg tablet 500 mg PO BID 10 days #20 tabs 11/26/21 [Rx Last Taken Unknown] enoxaparin 40 mg/0.4 mL subcutaneous syringe 40 mg (0.4 mL) subcut DAILY dvt prophylaxis #12 mL 11/26/21 [Rx Last Taken Unknown] Lantus Solostar U-100 Insulin 100 unit/mL (3 mL) subcutaneous pen (insulin glargine) 25 unit (0.25 mL) subcut BID #15 mL 12/18/21 [Rx Last Taken Unknown] Novolog Flexpen U-100 Insulin 100 unit/mL (3 mL) subcutaneous (insulin aspart U-100) 15 unit (0.15 mL) subcut TID #15 mL 12/18/21 [Rx Last Taken Unknown] blood sugar diagnostic (Accu-Chek Guide test strips) #100 ea 12/18/21 [Rx Last Taken Unknown] pen needle, diabetic 32 gauge x 5/32 (BD Ultra-Fine Sammie Pen Needle) #150 ea 12/18/21 [Rx Last Taken Unknown] ciprofloxacin HCl 750 mg tablet 750 mg PO BID #28 tabs 01/01/22 [Rx Last Taken Unknown] doxycycline hyclate 100 mg tablet 100 mg PO BID #28 tabs 01/01/22 [Rx Last Taken Unknown] Allergy/AdvReac Type Severity Reaction Status Date / Time glyburide Allergy Intermediate Unknown Verified 03/01/22 12:18 Iodinated Contrast Media Allergy Rash Verified 03/01/22 12:18 [CONTRASTS] amlodipine [From Norvasc] AdvReac Unknown Unknown Verified 03/01/22 12:18 atorvastatin [From Lipitor] AdvReac Unknown Unknown Verified 03/01/22 12:18 cerivastatin [From Baycol] AdvReac Unknown Unknown Verified 03/01/22 12:18 enalapril AdvReac Unknown Unknown Verified 03/01/22 12:18 exenatide [From Byetta] AdvReac Unknown Unknown Verified 03/01/22 12:18 ezetimibe [From Zetia] AdvReac Unknown Unknown Verified 03/01/22 12:18 fenofibrate [From Tricor] AdvReac Unknown Unknown Verified 03/01/22 12:18 gemfibrozil AdvReac Unknown Unknown Verified 03/01/22 12:18 glipizide [From Glucotrol] AdvReac Unknown Unknown Verified 03/01/22 12:18 labetalol AdvReac Unknown Unknown Verified 03/01/22 12:18 lovastatin [From Mevacor] AdvReac Unknown Unknown Verified 03/01/22 12:18 metformin [From Glucophage] AdvReac Unknown Unknown Verified 03/01/22 12:18 niacin AdvReac Unknown Unknown Verified 03/01/22 12:18 [From Niaspan Extended-Release] nifedipine [From Adalat] AdvReac Unknown Unknown Verified 03/01/22 12:18 quinapril [From Accupril] AdvReac Unknown Unknown Verified 03/01/22 12:18 repaglinide [From Prandin] AdvReac Unknown Unknown Verified 03/01/22 12:18 rosuvastatin [From Crestor] AdvReac Unknown Unknown Verified 03/01/22 12:18 simvastatin [From Zocor] AdvReac Unknown Unknown Verified 03/01/22 12:18 Family History Mother Diabetes Father , Age 56 Myocardial infarction Brother Diabetes Brother Diabetes Brother Multiple sclerosis Surgical History History of coronary artery bypass graft History of lung surgery 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 Kevon Christina MD) household members: spouse Smoking Status: Never smoker second hand exposure: No alcohol intake: never substance use type: does not use Physical Exam Const alert, oriented x3 and no apparent distress General Appearance: cooperative HEENT normocephalic and head/scalp atraumatic Eyes PERRL and EOMs intact bilaterally Neck supple and No nodes Resp normal air movement and clear to auscultation bilaterally Cardio regular rate and regular rhythm GI soft to palpation, non-tender and non-distended Extremity General Extremity: Negative for edema Skin Skin Narrative: L 2nd toe is black, surrounding redness/swelling of L foot. Wound on plantar surface R foot with drainage. Neuro CN's II-XII intact bilaterally Lab / Micro Data Attestation: I reviewed the patient's lab results. Result Diagrams: 03/01/22 10:30 03/01/22 10:30 Labs: Laboratory Results - last 24 hr 03/01/22 10:30: WBC 16.7 H, RBC 3.94 L, Hgb 10.9 L, Hct 33.1 L, MCV 84.0, MCH 27.7, MCHC 32.9, RDW Std Deviation 39.5, RDW Coeff of Kelsey 12.9, Plt Count 323, MPV 9.2, Immature Gran % (Auto) 0.400, Neut % (Auto) 83.2 H, Lymph % (Auto) 8.9 L, [place] % (Auto) 7.2, Eos % (Auto) 0.1, Baso % (Auto) 0.2, Absolute Neuts (auto) 13.9 H, Absolute Lymphs (auto) 1.48, Nucleated RBC % 0, ESR > 130 H 03/01/22 10:30: Sodium 133 L, Potassium 4.5, Chloride 102, Carbon Dioxide 24.0, Anion Gap 7, BUN 51 H, Creatinine 2.51 H, Estim Creat Clear Calc 24.58, Est GFR (MDRD) Af Amer 32 L, Est GFR (MDRD) Non-Af 26 L, BUN/Creatinine Ratio 20.3 H, Glucose 272 H, Calcium 9.8, Total Bilirubin 0.70, AST 34, ALT 25, Alkaline Phosphatase 131 H, C-React Prot Ext Range 329.00 H, Total Protein 8.5 H, Albumin 2.4 L, Globulin 6.1 H, Albumin/Globulin Ratio 0.4 L 03/01/22 10:30: Lactic Acid 1.6 03/01/22 11:05: PT 15.9 H, INR 1.3, APTT 30.8 Radiology Impression Foot X-Ray 03/01/22 11:35 IMPRESSION: Foot ulcers with soft tissue gas and swelling and likely underlying acute osteomyelitis. Electronically Signed: Fermin Uche, at 12:03 EST ,
[2022-03-01 14:31] LABS: Bedside Glucose 253 mg/dL (74-106)
--- NOTE | 2022-03-01 15:30 | FOOT_PTH ---
PATIENT: PAULINA OSORIO LOC: [facility] U#:[id number] AGE/SX: 81/M ROOM: [facility] RE03/01/[address]: Dr. Kevin Webber DO : 1940 BED: 1 DIS: 03/08/2022 SPEC #: [id number] RECD: 03/05/22 09:39 STATUS: TALHA REQ #: [id number] AUGUST[place]: 03/01/22 15:[address]: Rayshawn Mckenna DEPT: SURGICAL PATHOLOGY RECD BY: Deepti Lewis ENTERED: 03/05/22 09:39 SP TYPE: FOOT OTHR DR: DO Dr. Roya Aaron MD Dr. William Lago, MD Tissues: A - Foot, NOS B - Bone of foot, NOS Procedures: Decalcification bone/plaque Surgery Specimen Level IV Comments: @ Ordering doctor for DEC edited from to DR.MMARS Rosalba MCHUGH at 03/08/22 1258 @ Ordering doctor for SUIV edited from to DR.MMARS Rosalba MCHUGH at 03/08/22 1258 @ Submitting doctor edited from to DR.MMARS Rosalba MCHUGH at 03/08/22 1258 HEADER OPERATION: Gangrene, foot, I & D, amputation, transmetatarsal PRE-OP DIAGNOSIS: Foot ulcers with soft tissue gas and swelling TISSUE SUBMITTED: A ? Left forefoot, B ? Bone, clearance fragments MICROSCOPIC DIAGNOSIS A. Left forefoot, amputation: Ulceration with associated acute and chronic inflammation. Underlying bone with acute osteomyelitis. B. Bone clearance fragments: Reparative and reactive change. No evidence of osteomyelitis. AM:kirk 03/08/2022 MICROSCOPIC DESCRIPTION Slides are reviewed. GROSS DESCRIPTION A - Received in fixative is one container labeled with the patient's name and designated left forefoot. The specimen consists of five fragments of bone, tissue and left foot ranging in size from 2.5 to 9 cm. The second toe of the left foot is hemorrhagic, irregular with greenish-somers discoloration. The plantar surface of the foot displays an ulcer adjacent to the third toe measuring 2.5 x 1.7 x 0.6 cm. Religion Instructor sections are submitted in three cassettes after decalcification as follows: 1 & 2 - bone, skin and tissue from the plantar ulcer, 3 - longitudinal section of distal digit of discolored second toe. B - Received in fixative is one container labeled with the patient's name and designated clearance fragment. The specimen consists of multiple irregular fragments of garnica-white bone that in aggregate measure 4 x 3 x 0.5 cm. Religion Instructor portions are submitted in one cassette after decalcification. / MONALISA:kirk 03/05/2022 TC:2 CPT: 93082 x2, 34386 x2
--- NOTE | 2022-03-01 15:36 | RAD_ITS ---
STUDY: X-RAY - LEFT FOOT CLINICAL: Male, 81 years old. TOE AMPUTATION TECHNIQUE: Multiple intraoperative images of the foot. Fluoroscopy time not recorded. COMPARISON: Left foot, March 01, 2022. FINDINGS: Initial images demonstrate the forefoot and 3 views. Findings are similar to the study performed approximately 4 hours earlier. Subsequent images demonstrate transverse metatarsal of the forefoot. Please refer to the operative report for further details. RAD/Toe(s) Min 2 Views IMPRESSION: Intraoperative imaging of a transmetatarsal amputation of the left foot. Electronically Signed: Khang Stinson DO at 17:46 EST ,
--- NOTE | 2022-03-01 15:43 | PCM.CONS.GEN ---
Assessment & Plan Assessment/Plan (1) Gas gangrene of foot: (2) Type 2 diabetes mellitus with foot ulcer: (3) Cellulitis of left lower limb: (4) Diabetic foot infection: (5) Other specified peripheral vascular diseases: (6) Non-pressure chronic ulcer of other part of left foot with necrosis of bone: (7) History of coronary artery stent placement: (8) Gangrene of toe of left foot: (9) Type 2 diabetes mellitus with diabetic polyneuropathy: PLAN: Plan I personally saw and evaluated the patient in the ED prior to trip to the OR I reviewed the patient's case and laboratory data. Discussed with ED physician Dr. Christina and hospitalist Dr. Garza. Infectious disease has been consulted and I discussed surgical intervention and plan with Dr. Shen. I discussed the emergent case and plan for surgical intervention. Vascular: Nonpalpable DP and PT pulses. He was noted to have monophasic DP flow and biphasic PT flow. Labs: 03/01/2022 prior to surgical intervention WBC 16.7, ESR greater than 130, CRP markedly elevated at 329, lactate normal, albumin low 2.4, creatinine 2.51, GFR 26, BUN 51, glucose 272, alkaline phosphatase 131. Imaging: Radiographs were performed in the ED 03/01/2022 and were positive for subcutaneous air/gas in the second digit second, overlying the second metatarsal head, base of the third digit and overlying the head of the third metatarsal, diffuse forefoot swelling, and likely underlying acute osteomyelitis. Infection: Is noted to have ulceration subfourth metatarsal likely source of infection. Subfourth metatarsal ulceration demonstrates no localized erythema, no purulent drainage, no malodor, no palpable bogginess or fluctuance, no visible abscess formation. Dorsal foot demonstrates significant cellulitis involving all 5 digits extending proximally to the midfoot. Second digit is discolored dusky/purplish/black in appearance with the plantar aspect of the third digit appearing dusky/purple/black in appearance. There is some soft tissue crepitus within the second digit and base of the second digit overlying the second metatarsal head.. Patient was started on IV Comycin, Zosyn, and clindamycin. I discussed with the patient and his the need for emergent surgical intervention. I discussed with them that this is not an elective procedure and that this is a limb salvage case. I discussed with them the significance behind the need for immediate intervention. 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 They voiced understanding of this. They are willing to consent and proceed forward with an incision and drainage and possible transmetatarsal amputation of the left foot. I discussed the procedure in great detail. All benefits, risks, and complications were discussed in detail. They are aware the risks include but are not limited to: Pain, continued pain, phantom pain, complex regional pain syndrome, deformity, infection, delayed healing/nonhealing, dehiscence, edema, scarring, poor cosmetic result, difficulty walking, difficulty with fitting of shoes, neuritis, numbness, the need for further surgical intervention/procedure, stroke, heart attack, allergic reaction, loss of function, loss of limb, and loss of life. The patient and voiced understanding of this. Patient and were able to repeat these back. No promises or guarantees were made. They are in agreement and willing to proceed with immediate surgical intervention today to salvage the left foot. Patient was made n.p.o. upon arrival. Surgical consent was signed freely. Operative leg was then signed prior to entry to the operating room. He was consented for incision and drainage with wide debridement of necrotic tissue with possible amputation of the second and third digits versus possible transmetatarsal amputation of the left foot. Patient will be admitted to the hospital following procedure and will continue to receive IV antibiotics while in house. Plan for surgical cultures to be obtained consisting of swab, tissue, and bone to aid in guiding IV antibiotic management. Medicine team will continue to follow for medical management, this is greatly appreciated. Infectious disease following for management of IV antibiotics, their input is greatly appreciated. Podiatry will continue to follow postoperatively while in house. Please do not hesitate to call with any questions or concerns Rayshawn Mckenna Jr. Tony.[facility] [phone] Note: [employer] speech recognition instructor apparel manufacture software was used to create portions of this document. Sound-alike and misspelled words, as well as other instructor apparel manufacture errors may be contained in the documentation. HPI Consult Data Date of Consult: 03/01/22 HPI Narrative Reason for Consultation: Gas gangrene left foot HPI Narrative: PAULINA OSORIO, is a 81 M who presents to [place] ED by way of his for cellulitis of the left foot with a dusky, purplish black second digit. He is very hard of hearing and a poor informant however his assists in questioning and history. 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 He is a patient of Dr. Froilan Oliver DPM and last seen 2 weeks ago for ulceration subfourth metatarsal head. He was referred to the wound care center with Dr. Varghese Rush DPM however he recently missed his appointment on 02/26/2022. He states that his left foot became red over the weekend. He states that overnight the second digit became darkened in color with progression of his cellulitis to the midfoot. He denies any fever, nausea, vomiting. He does admit to occasional chills and pain that comes and goes. states that he was very tired the over the last 2 days. Labs were obtained in the ED demonstrating WBC 16.7, ESR greater than 130, CRP markedly elevated at 329, lactate normal, albumin low 2.4, creatinine 2.51, GFR 26, BUN 51, glucose 272, alkaline phosphatase 131. Radiographs were performed in the ED and were positive for subcutaneous air/gas in the second digit second, overlying the second metatarsal head, base of the third digit and overlying the head of the third metatarsal, diffuse forefoot swelling, and likely underlying acute osteomyelitis. Is noted to have ulceration subfourth metatarsal likely source of infection. Patient was started on IV Comycin, Zosyn, and clindamycin. He was also noted to have monophasic DP flow and biphasic PT flow. I was consulted for emergent surgical intervention and the case was discussed with the ED physician and hospitalist. And I personally saw and evaluated patient in ED prior to trip to the OR. [facility] Medical History (Updated 03/01/22 @ 20:[address] Rayshawn Mckenna DPM) Atherosclerosis of coronary artery bypass graft of [place] heart Atherosclerosis of coronary artery of [place] heart without angina pectoris Bacteremia Bone fracture Cellulitis of right lower extremity Delayed wound healing Dizziness DM type 2, uncontrolled, with renal complications Essential hypertension Hearing problem Hyperlipidemia Hyperlipidemia associated with type 2 diabetes mellitus Malnutrition Obesity Osteomyelitis of foot, acute PAD (peripheral artery disease) Pneumonia Restless legs Stage 4 chronic kidney disease due to type 2 diabetes mellitus 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 Uncontrolled type 2 diabetes mellitus, with long-term current use of insulin Home Medications aspirin 81 mg tablet,delayed release (Adult Aspirin Regimen) 81 mg PO DAILY heart 05/29/17 [History Last Taken 11/21/21] coenzyme Q10 100 mg capsule (Co Q-10) 100 mg PO DAILY supplement 06/04/17 [History Last Taken 11/21/21] ngyjoxlt-bkv-ukocl acid 0.4 mg-lycopene 300 mcg-lutein 250 mcg tablet 1 tab PO DAILY supplement 08/21/18 [History Last Taken 11/21/21] calcium carb-vit U4-pogezsvpg-alrv 333 mg-200 unit-133 mg-5 mg tablet 1 tab PO DAILY supplement 10/18/19 [History Last Taken 11/21/21] omega-3 fatty acids 1,000 mg capsule (Fish Oil Concentrate) 1,000 mg PO BID 10/18/19 [History Last Taken Unknown] amiloride 5 mg tablet 5 mg PO BID heart #180 tabs 10/05/20 [Rx Last Taken 11/21/21] doxazosin 2 mg tablet 2 mg PO BID prostate #180 tabs 10/05/20 [Rx Last Taken 11/21/21] losartan 50 mg tablet 50 mg PO DAILY heart 08/10/21 [History Last Taken 11/21/21] insulin lispro 100 unit/mL subcutaneous pen See Protocol subcut ACHS dm 11/21/21 [History Last Taken 11/21/21] metoprolol succinate 25 mg tablet,extended release 24 hr 12.5 mg PO BID heart 11/21/21 [History Last Taken 11/21/21] amoxicillin 875 mg-potassium clavulanate 125 mg tablet 875 mg PO BID 10 days #18 tabs 11/26/21 [Rx Last Taken Unknown] ciprofloxacin HCl 500 mg tablet 500 mg PO BID 10 days #20 tabs 11/26/21 [Rx Last Taken Unknown] enoxaparin 40 mg/0.4 mL subcutaneous syringe 40 mg (0.4 mL) subcut DAILY dvt prophylaxis #12 mL 11/26/21 [Rx Last Taken Unknown] Lantus Solostar U-100 Insulin 100 unit/mL (3 mL) subcutaneous pen (insulin glargine) 25 unit (0.25 mL) subcut BID #15 mL 12/18/21 [Rx Last Taken Unknown] Novolog Flexpen U-100 Insulin 100 unit/mL (3 mL) subcutaneous (insulin aspart U-100) 15 unit (0.15 mL) subcut TID #15 mL 12/18/21 [Rx Last Taken Unknown] blood sugar diagnostic (Accu-Chek Guide test strips) #100 ea 12/18/21 [Rx Last Taken Unknown] pen needle, diabetic 32 gauge x 5/32 (BD Ultra-Fine Sammie Pen Needle) #150 ea 12/18/21 [Rx Last Taken Unknown] ciprofloxacin HCl 750 mg tablet 750 mg PO BID #28 tabs 01/01/22 [Rx Last Taken Unknown] doxycycline hyclate 100 mg tablet 100 mg PO BID #28 tabs 01/01/22 [Rx Last Taken Unknown] Allergy/AdvReac Type Severity Reaction Status Date / Time glyburide Allergy Intermediate Unknown Verified 03/01/22 12:18 Iodinated Contrast Media Allergy Rash Verified 03/01/22 12:18 [CONTRASTS] amlodipine [From Norvasc] AdvReac Unknown Unknown Verified 03/01/22 12:18 atorvastatin [From Lipitor] AdvReac Unknown Unknown Verified 03/01/22 12:18 cerivastatin [From Baycol] AdvReac Unknown Unknown Verified 03/01/22 12:18 enalapril AdvReac Unknown Unknown Verified 03/01/22 12:18 exenatide [From Byetta] AdvReac Unknown Unknown Verified 03/01/22 12:18 ezetimibe [From Zetia] AdvReac Unknown Unknown Verified 03/01/22 12:18 fenofibrate [From Tricor] AdvReac Unknown Unknown Verified 03/01/22 12:18 gemfibrozil AdvReac Unknown Unknown Verified 03/01/22 12:18 glipizide [From Glucotrol] AdvReac Unknown Unknown Verified 03/01/22 12:18 labetalol AdvReac Unknown Unknown Verified 03/01/22 12:18 lovastatin [From Mevacor] AdvReac Unknown Unknown Verified 03/01/22 12:18 metformin [From Glucophage] AdvReac Unknown Unknown Verified 03/01/22 12:18 niacin AdvReac Unknown Unknown Verified 03/01/22 12:18 [From Niaspan Extended-Release] nifedipine [From Adalat] AdvReac Unknown Unknown Verified 03/01/22 12:18 quinapril [From Accupril] AdvReac Unknown Unknown Verified 03/01/22 12:18 repaglinide [From Prandin] AdvReac Unknown Unknown Verified 03/01/22 12:18 rosuvastatin [From Crestor] AdvReac Unknown Unknown Verified 03/01/22 12:18 simvastatin [From Zocor] AdvReac Unknown Unknown Verified 03/01/22 12:18 Family History Mother Diabetes Father , Age 56 Myocardial infarction Brother Diabetes Brother Diabetes Brother Multiple sclerosis Surgical History History of coronary artery bypass graft History of lung surgery 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 Kevon Christina MD) household members: spouse Smoking Status: Never smoker second hand exposure: No alcohol intake: never substance use type: does not use ROS Constitutional Constitutional: Reports chills; Denies fever(s) or malaise Eyes Eyes: Denies change in vision, double vision or eye pain ENT HEENT: Denies nasal congestion, nasal discharge, nasal obstruction or sore throat Cardiovascular Cardiovascular: Denies abdominal pain, chest pain or lightheadedness Respiratory/Chest Respiratory/Chest: Denies chest congestion, chest tightness or cough Gastrointestinal Gastrointestinal: Denies abdominal pain, constipation, nausea or vomiting Genitourinary Genitourinary: Denies flank pain, hematuria, urinary frequency or urinary urgency Musculoskeletal Musculoskeletal: Denies joint pain, joint stiffness or joint swelling Integumentary Integumentary: Reports erythema and wounds; Denies lesions, nail changes, pruritus or rash Neurologic Neurologic: Denies confusion, dizziness or seizures Psychiatric Psychiatric: Denies confusion or depression Endocrine Endocrinology: Denies cold intolerance, heat intolerance, polydipsia, polyphagia or polyuria Hematologic/Lymphatic Hematologic/Lymphatic: Denies easy bleeding or easy bruising Physical Exam Const alert, oriented x3, no apparent distress and well nourished Constitutional Narrative: Patient appears nontoxic. General Appearance: cooperative HEENT normocephalic Eyes General Eye: normal appearance of both eyes Neck General: normal visual inspection Lymph Lymphatic: no lymphadenopathy noted and no lymphedema noted Resp normal respiratory effort Cardio regular rate and regular rhythm Extremity no joint enlargement and no calf tenderness Extremity Narrative: Left lower extremity: Absent DP and PT pulses to palpation. On Doppler PT is biphasic and DP is monophasic. Capillary fill time is greater than 5 seconds to the hallux, fourth digit, and fifth digit. Capillary fill time absent/severely delayed to the second digit and third digit. Second and third digit are cool to the touch and dusky/purplish/black in appearance. Right foot demonstrates cellulitis involving all 5 digits extending proximally to the midfoot. Right lower extremity: Transmetatarsal amputation site noted. No evidence of wounds. No signs of infection. Skin no jaundice General Skin Exam: erythema Wound Narrative: Subfourth metatarsal ulceration demonstrates no localized erythema, no purulent drainage, no malodor, no palpable bogginess or fluctuance, no visible abscess formation. Dorsal foot demonstrates significant cellulitis involving all 5 digits extending proximally to the midfoot. Second digit is discolored dusky/purplish/black in appearance with the plantar aspect of the third digit appearing dusky/purple/black in appearance. There is some soft tissue crepitus within the second digit and base of the second digit overlying the second metatarsal head. Neuro oriented x3 and moves all extremities Neuro Narrative: Diminished light touch and protective sensation to the foot consistent with peripheral polyneuropathy Psych affect normal Appearance: grossly normal and appropriate Lab / Micro Data Result Diagrams: 03/01/22 10:30 03/01/22 10:30 Labs: Laboratory Results - last 24 hr 03/01/22 10:30: WBC 16.7 H, RBC 3.94 L, Hgb 10.9 L, Hct 33.1 L, MCV 84.0, MCH 27.7, MCHC 32.9, RDW Std Deviation 39.5, RDW Coeff of Kelsey 12.9, Plt Count 323, MPV 9.2, Immature Gran % (Auto) 0.400, Neut % (Auto) 83.2 H, Lymph % (Auto) 8.9 L, Ray % (Auto) 7.2, Eos % (Auto) 0.1, Baso % (Auto) 0.2, Absolute Neuts (auto) 13.9 H, Absolute Lymphs (auto) 1.48, Nucleated RBC % 0, ESR > 130 H 03/01/22 10:30: Sodium 133 L, Potassium 4.5, Chloride 102, Carbon Dioxide 24.0, Anion Gap 7, BUN 51 H, Creatinine 2.51 H, Estim Creat Clear Calc 24.58, Est GFR (MDRD) Af Amer 32 L, Est GFR (MDRD) Non-Af 26 L, BUN/Creatinine Ratio 20.3 H, Glucose 272 H, Calcium 9.8, Total Bilirubin 0.70, AST 34, ALT 25, Alkaline Phosphatase 131 H, C-React Prot Ext Range 329.00 H, Total Protein 8.5 H, Albumin 2.4 L, Globulin 6.1 H, Albumin/Globulin Ratio 0.4 L 03/01/22 10:30: Lactic Acid 1.6 03/01/22 11:05: PT 15.9 H, INR 1.3, APTT 30.8 03/01/22 14:10: POC Glucose 253 H Radiology Impression Foot X-Ray 03/01/22 11:35 IMPRESSION: Foot ulcers with soft tissue gas and swelling and likely underlying acute osteomyelitis. Electronically Signed: Fermin Ivey, at 12:03 EST ,
[2022-03-01] MEDS: Vancomycin IV 1,000 MG/20 ML Vial 2000 MG OPERA.SITE (16:45)
--- NOTE | 2022-03-01 17:37 | PCM.OPRPT ---
Problems Associated Problem List Diagnoses (1) Gas gangrene of foot: (2) Gangrene of toe of left foot: (3) Cellulitis of left lower limb: (4) Non-pressure chronic ulcer of other part of left foot with necrosis of bone: (5) Type 2 diabetes mellitus with foot ulcer: (6) Type 2 diabetes mellitus with diabetic polyneuropathy: (7) Diabetic foot infection: (8) Other specified peripheral vascular diseases: Report of Operation Date of Procedure: 03/01/22 Pre-Operative Diagnosis: 1. Gas gangrene left foot 2. Gangrene second digit left foot 3. Cellulitis left foot 4. Subfourth metatarsal ulceration left foot 5. Diabetes with peripheral polyneuropathy and diabetic foot infection Post-Operative Diagnosis: 1. Gas gangrene left foot 2. Gangrene second digit left foot 3. Cellulitis left foot 4. Subfourth metatarsal ulceration left foot 5. Diabetes with peripheral polyneuropathy and diabetic foot infection Surgery/Procedure Performed:: 1. Incision and drainage with wide debridement gas gangrene left foot 2. Transmetatarsal amputation left foot Description of Surgical Findings:: See operative note for findings Surgeon: Rayshawn Mckenna design release engineer: None design release engineer: Torey Her DPM PGY-2 Type of Anesthesia: General Specimen's removed: Swab culture left foot Tissue left foot Bone digits left foot Bone metatarsals 1 through 5 left foot Drains: None Estimated Blood Loss (mL): < 10mL Description of Procedure: HPI/indication: Patient is 81 M who presents to [place] ED by way of his for cellulitis of the left foot with a dusky, purplish black second digit.? He is very hard of hearing and a poor informant however his assists in questioning and history.? 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 He is a patient of Dr. Froilan Oliver DPM and last seen 2 weeks ago for ulceration subfourth metatarsal head.? He was referred to the wound care center with Dr. Varghese Rush DPM however he recently missed his appointment on 02/26/2022.? He states that his left foot became red over the weekend.? He states that overnight the second digit became darkened in color with progression of his cellulitis to the midfoot.? He denies any fever, nausea, vomiting.? He does admit to occasional chills and pain that comes and goes.? states that he was very tired the over the last 2 days.? Labs were obtained in the ED demonstrating WBC 16.7, ESR greater than 130, CRP markedly elevated at 329, lactate normal, albumin low 2.4, creatinine 2.51, GFR 26, BUN 51, glucose 272, alkaline phosphatase 131.? Radiographs were performed in the ED and were positive for subcutaneous air/gas in the second digit second, overlying the second metatarsal head, base of the third digit and overlying the head of the third metatarsal, diffuse forefoot swelling, and likely underlying acute osteomyelitis.? Is noted to have ulceration subfourth metatarsal likely source of infection.?Patient was started on IV Comycin, Zosyn, and clindamycin.? He was also noted to have monophasic DP flow and biphasic PT flow.? I was consulted for emergent surgical intervention and the case was discussed with the ED physician and hospitalist.? And I personally saw and evaluated patient in ED prior to trip to the OR. I discussed with the patient and his the need for emergent surgical intervention.? I discussed with them that this is not an elective procedure and that this is a limb salvage case.? I discussed with them the significance behind the need for immediate intervention.? 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 They voiced understanding of this.? They are willing to consent and proceed forward with an incision and drainage and possible transmetatarsal amputation of the left foot.? I discussed the procedure in great detail.? All benefits, risks, and complications were discussed in detail.? They are aware the risks include but are not limited to: Pain, continued pain, phantom pain, complex regional pain syndrome, deformity, infection, delayed healing/nonhealing, dehiscence, edema, scarring, poor cosmetic result, difficulty walking, difficulty with fitting of shoes, neuritis, numbness, the need for further surgical intervention/procedure, stroke, heart attack, allergic reaction, loss of function, loss of limb, and loss of life.? The patient and voiced understanding of this.? Patient and were able to repeat these back.? No promises or guarantees were made.? They are in agreement and willing to proceed with immediate surgical intervention today to salvage the left foot.? Patient was made n.p.o. upon arrival.? Surgical consent was signed freely.? Operative leg was then signed prior to entry to the operating room.? He was consented for incision and drainage with wide debridement of necrotic tissue with possible amputation of the second and third digits versus possible transmetatarsal amputation of the left foot.?Patient will be admitted to the hospital following procedure and will continue to receive IV antibiotics while in house. Procedure: Under mild sedation patient brought to the operating room placed on the table in supine position. Following IV sedation and induction of general anesthesia a pneumatic ankle tourniquet was placed about the patient's left ankle. The foot was then scrubbed, prepped, and draped in the usual aseptic manner. The left foot was elevated and the pneumatic ankle tourniquet was inflated to 250 mmHg. At this time attention was directed to the left foot where a subfourth metatarsal ulceration was noted. Ulcerative site demonstrated no localized erythema, no purulent drainage, no malodor, no palpable fluctuance/bogginess, no visible abscess formation. Wound bed was noted to be granular in appearance with palpable fourth metatarsal head below the wound base. Wound did not probe to bone. Cellulitis of the left lower extremity was noted involving all 5 digits extending proximally to the midfoot dorsally, second digit was noted to be dusky, discolored purple/blackish in appearance with the plantar aspect of the third digit also noted to be dusky, discolored purple/blackish in appearance. There was soft tissue crepitus noted in the second digit and overlying the head of the second and third metatarsals. Fluoroscopy was utilized prior to incision in multiple views confirming radiographic evidence of prior images. At this time a fishmouth shaped incision encompassing the forefoot and subfourth metatarsal ulceration was made utilizing a #10 blade straight to bone. Upon incision a foul odor emerged from the area overlying the second and third metatarsal heads with soft tissue crepitus releasable to palpation. Culture swabs were performed of the dark and discolored/liquefied drainage/tissue at the base of the second digit. The swabs were sent to microbiology for analysis. Tissue overlying the second and third metatarsal heads and distal digits were sharply dissected and collected for culture to microbiology and pathology for analysis. Next utilizing a #15 blade the hallux and lesser digits were sharply disarticulated at their corresponding metatarsophalangeal joint and the entire forefoot was removed and transferred from the operative field to the table in toto. Forefoot was collected for specimen and sent to pathology for analysis. At this time the metatarsal heads were inspected with the second and third metatarsal heads appearing somers and dusky in coloration with the dorsal aspect noted to be soft consistent with early acute osteomyelitis. At this time utilizing a sagittal saw metatarsals 1 through 5 were sharply transected just proximal to the surgical neck. Second metatarsal was collected for specimen and sent to microbiology for analysis and the third metatarsal was collected for specimen and sent to pathology for analysis. Remaining metatarsals were sent to pathology for analysis. Next all necrotic, nonviable soft tissue was sharply dissected to healthy, bleeding, viable tissue. At this time the site was copiously irrigated with a 3000 cc pulse lavage. Following copious irrigation new gloves were donned and fresh sterile instrumentation was used throughout the duration of this case. Next all flexor and extensor tendons were identified and transected as far proximally as possible. The sagittal saw was then utilized to further resect the first, second, third, fourth, and fifth metatarsals maintaining the normal parabola for adequate soft tissue closure. It is noted that during passing of the sagittal saw the bone was noted to be healthy appearing and of hard quality indicating adequate viability. The first and fifth metatarsal cuts were performed in such a way to offload any prominences to prevent wound breakdown. These metatarsals were collected a specimen and sent to pathology as a clearance fragment. Next fluoroscopy was utilized in multiple views confirming transmetatarsal amputation without plantar prominences. Next 2 g of vancomycin powder was placed throughout the surgical site. The the deep tissues were then closed with a 4-0 Vicryl, the subcutaneous tissues were then closed with a 4-0 Monocryl, and the skin was reapproximated with a 2-0 Prolene. At this time the pneumatic ankle tourniquet was deflated and a prompt hyperemic response was noted to the amputation stump. Surgical site was dressed with Betadine soaked Adaptic, 4 x 4 gauze, Kerlix, and Jalil wrap rolled onto the foot. The patient tolerated the procedure and anesthesia well was transported the PACU with vital signs stable and vascular status intact to the left foot. Once anesthesia protocol has been met he will be admitted to the hospital and continue to receive IV antibiotics while in house. Grafts/Implants Used: 2 g vancomycin powder Complications None Admit VTE Documentation VTE Present on Admission: No VTE Mechan Device Prophylaxis: SCD's VTE Pharm Prophylaxis ordered?: No Reason prophylaxis not ordered:: Procedure Not Indicated
[2022-03-01 17:45] LABS: Bedside Glucose 248 mg/dL (74-106)
--- NOTE | 2022-03-01 17:54 | RAD_ITS ---
STUDY: X-RAY - LEFT FOOT CLINICAL: Male, 81 years old. Postop transmetatarsal amputation. TECHNIQUE: 3 view(s) of the foot. COMPARISON: March 01, 2022. FINDINGS: Normal talus, calcaneus, and tarsal bones. Normal visualized subtalar, talonavicular, calcaneocuboid, tarsal and tarsometatarsal articulations. Transmetatarsal amputation of the forefoot. The metatarsal stumps are grossly normal. The soft tissue structures are unremarkable. RAD/Foot min 3 Views IMPRESSION: Status post transmetatarsal amputation of the left foot. Electronically Signed: Khang Stinson DO at 19:01 EST ,
--- NOTE | 2022-03-01 20:09 | PCM.RX.CS ---
Consult Pharmacy has been consulted to manage selected antiobiotic: Vancomycin Type of Consult: New start Suspected Infection: Other Labs: Sodium 133 mmol/L (136-145) L 03/01/22 10:30 Potassium 4.5 mmol/L (3.5-5.1) 03/01/22 10:30 Chloride 102 mmol/L (98-107) 03/01/22 10:30 Carbon Dioxide 24.0 mmol/L (21.0-32.0) 03/01/22 10:30 Anion Gap 7 (5-15) 03/01/22 10:30 BUN 51 mg/dL (7-18) H 03/01/22 10:30 Creatinine 2.51 mg/dL (0.70-1.30) H 03/01/22 10:30 Est GFR (MDRD) Af Amer 32 mL/min (>60) L 03/01/22 10:30 Est GFR (MDRD) Non-Af 26 mL/min (>60) L 03/01/22 10:30 BUN/Creatinine Ratio 20.3 RATIO (10-20) H 03/01/22 10:30 Glucose 272 mg/dL (74-106) H 03/01/22 10:30 Pharmacy Plan for Drug Dosing: NEW START IV VANCOMYCIN Consulting Physician: JENNIE Indication: GANGRENE OF TOE Goal Trough: 15-20 MG/DL SrCr: 2.51 MG/DL CrCl: 24.6 ML/MIN Comments: GIVEN LOADING DOSE OF 2000MG IN ER @ 1329 Vancomycin Dose: WILL START 750MG Q24H (03/02 @ 1330) PER POLICY AND GET A TROUGH PRIOR TO 3RD DOSE. Pending Level: 03/03/22 @ 1300 Pharmacy Service will continue to monitor and adjust dosing as required.
[2022-03-01] MEDS: Insulin Lispro 100 UNIT/ML INSULN.PEN SC (21:46)
[2022-03-01] MEDS: Insulin Glargine-YFGN 100 UNIT/ML Pen 25 UNIT SC (21:46)
[2022-03-01 21:51] LABS: Bedside Glucose 259 mg/dL (74-106)
[2022-03-02] VITALS (12 sets, daily range): BP systolic 110–153; BP diastolic 53–66; PULSE 62–81; RESP 16–18; TEMP 36.7–37.7; O2SAT 95–97
--- NOTE | 2022-03-02 00:43 | NURSING ---
Patient refused nasal swab stating Do not force that COVID shit on me. I don't have it.
[2022-03-02] MEDS: 0.9% Normal Saline 1,000 ML 100 ML IV (02:53)
[2022-03-02] MEDS: Clindamycin 600 MG/50 ML BAG 100 MG IV ×3 (05:37→20:44)
[2022-03-02] MEDS: Insulin Lispro 100 UNIT/ML INSULN.PEN SC ×3 (05:43→16:35)
[2022-03-02 06:46] LABS: Bedside Glucose 186 mg/dL (74-106)
[2022-03-02 07:32] LABS: Absolute Lymphocyte Count 1.13 X10^3/uL (0.83-4.51); Absolute Neutrophil Count 7.3 X10^3/uL (2.0-7.7); Basophil# 0.04 X10^3/uL; Basophil% 0.4 % (0-1); Eosinophil# 0.11 X10^3/uL; Eosinophils% 1.2 % (0-5); Hematocrit 29.7 % (40-54); Hemoglobin 9.5 g/dL (13.0-16.5); Lymphocyte # 1.13 X10^3/ul (0.83-4.51); Lymphocyte % 12.1 % (19-41); Mean Corpuscular Volume 87.6 fL (80-94); Mean Platelet Vol. 9.4 fl (6.2-12.0); Monocyte# 0.68 X10^3/uL; Monocyte% 7.3 % (0-10); NRBC Flagged by Analyzer 0 % (0-5); Neutrophil # 7.34 X10^3/uL (2.7-7.7); Neutrophil % 78.6 % (47-70); Platelet Count 283 K/mm3 (150-450); RBC Distribution Width CV 13.3 % (11.6-14.6); RBC Distribution Width SD 43.2 fl (35.1-43.9); Red Blood Count 3.39 M/mm3 (4.6-6.2); White Blood Count 9.3 K/mm3 (4.4-11.0)
--- NOTE | 2022-03-02 07:40 | NURSING ---
Emergency documentation per charge nurse.
--- NOTE | 2022-03-02 07:53 | PN.HOSP_ITS ---
Subjective Subjective Seen at bedside, patient insisting on getting up and getting out of bed to go to the restroom on his own and reports he does not need help. Very combative and would not answer questions. Objective Data Objective Data Vital Signs: Vital Signs Temp Pulse Resp BP Pulse Ox O2 Del Method 98.0 F 69 18 114/53 L 97 Room Air 03/02/22 03:00 03/02/22 07:06 03/02/22 03:00 03/02/22 03:00 03/02/22 03:00 03/02/22 03:00 Oxygen Delivery Method Room Air Weight: 95.254 kg Body Mass Index (BMI) 29.2 Intake & Output: Intake and Output for Last 24 Hours 02/28/22 03/01/22 03/02/22 23:59 23:59 23:59 Intake Total 2227.5 / 2347.5 972.5 / 972.5 Output Total 600 / 600 Balance 2227.5 / 2197.5 372.5 / 372.5 Lab / Micro Data Result Diagrams: 03/02/22 05:43 03/02/22 05:43 Labs: Laboratory Results - last 24 hr 03/01/22 10:30: WBC 16.7 H, RBC 3.94 L, Hgb 10.9 L, Hct 33.1 L, MCV 84.0, MCH 27.7, MCHC 32.9, RDW Std Deviation 39.5, RDW Coeff of Kelsey 12.9, Plt Count 323, MPV 9.2, Immature Gran % (Auto) 0.400, Neut % (Auto) 83.2 H, Lymph % (Auto) 8.9 L, Berrien % (Auto) 7.2, Eos % (Auto) 0.1, Baso % (Auto) 0.2, Absolute Neuts (auto) 13.9 H, Absolute Lymphs (auto) 1.48, Nucleated RBC % 0, ESR > 130 H 03/01/22 10:30: Sodium 133 L, Potassium 4.5, Chloride 102, Carbon Dioxide 24.0, Anion Gap 7, BUN 51 H, Creatinine 2.51 H, Estim Creat Clear Calc 24.58, Est GFR (MDRD) Af Amer 32 L, Est GFR (MDRD) Non-Af 26 L, BUN/Creatinine Ratio 20.3 H, Glucose 272 H, Calcium 9.8, Total Bilirubin 0.70, AST 34, ALT 25, Alkaline Phosphatase 131 H, C-React Prot Ext Range 329.00 H, Total Protein 8.5 H, Albumin 2.4 L, Globulin 6.1 H, Albumin/Globulin Ratio 0.4 L 03/01/22 10:30: Lactic Acid 1.6 03/01/22 11:05: PT 15.9 H, INR 1.3, APTT 30.8 03/01/22 14:10: POC Glucose 253 H 03/01/22 17:27: POC Glucose 248 H 03/01/22 21:25: POC Glucose 259 H 03/02/22 05:42: POC Glucose 186 H 03/02/22 05:43: WBC 9.3, RBC 3.39 L, Hgb 9.5 L, Hct 29.7 L, MCV 87.6, MCH 28.0, MCHC 32.0, RDW Std Deviation 43.2, RDW Coeff of Kelsey 13.3, Plt Count 283, MPV 9.4, Immature Gran % (Auto) 0.400, Neut % (Auto) 78.6 H, Lymph % (Auto) 12.1 L, Berrien % (Auto) 7.3, Eos % (Auto) 1.2, Baso % (Auto) 0.4, Absolute Neuts (auto) 7.3, Absolute Lymphs (auto) 1.13, Nucleated RBC % 0 Micro: Microbiology 03/01/22 10:30 Blood Culture (Wb) - Right Forearm Blood Culture - Preliminary 03/01/22 19:38 Mucosa - Nasopharyngeal Respiratory Panel (PCR) - Final Radiography Diagnostic Testing: Radiology Impression Foot X-Ray 03/01/22 11:35 IMPRESSION: Foot ulcers with soft tissue gas and swelling and likely underlying acute osteomyelitis. Electronically Signed: Fermin Ievy, at 12:03 EST , Toe X-Ray 03/01/22 15:36 IMPRESSION: Intraoperative imaging of a transmetatarsal amputation of the left foot. Electronically Signed: Khang Stinson DO at 17:46 EST Reading Location ID and State: [address] [place] [address] Tel [phone], Service support , Foot X-Ray 03/01/22 17:54 IMPRESSION: Status post transmetatarsal amputation of the left foot. Electronically Signed: Khang Stinson, DO at 19:01 EST Reading Location ID and State: [address] [place] [address] Tel [phone], Service support , Physical Exam Const alert Constitutional Narrative: Irritable, would not answer any orientation questions HEENT normocephalic and head/scalp atraumatic Eyes Eyes Narrative: EOM grossly intact, anicteric Neck supple Resp normal respiratory effort and clear to auscultation bilaterally Cardio regular rate and regular rhythm GI soft to palpation, non-tender and non-distended Extremity Extremity Narrative: Partial amputation of his right foot, left foot wrapped status post surgery Neuro moves all extremities Neuro Narrative: No overt focal deficits appreciated Psych Psych Narrative: Combative and not cooperative Assessment & Plan Assessment/Plan (1) Gangrene of toe of left foot: PLAN: Plan #Gas gangrene of the left foot Foot ulcers with soft tissue gas and swelling and likely underlying acute osteomyelitis seen on x-ray of the foot White blood cell count 16.7 ESR greater than 130 and CRP 329 Patient urgently to the OR 03/[address] Mckenna ID consulted Cultures pending Vancomycin/Zosyn/clindamycin Pain control Glucose control #31: Taken to the OR 03/[address] Mckenna and is status post transmetatarsal amputation of the left foot. Podiatry still following/managing. Dressing changed today. Did have x-ray after surgery which noted the transmetatarsal amputation. Cultures, both tissue and blood, demonstrating staph aureus, he was presently on vancomycin. Infectious disease managing antibiotics, continue to follow cultures, also remains on Zosyn and clindamycin. Will need to follow with podiatry in the office within 3 to 5 days upon discharge #Type 2 diabetes mellitus We will continue 25 units twice daily of his long-acting Glucose checks and sliding scale insulin #JAMI on CKD stage IV Likely due to underlying infection Being hydrated Will trend Can consider nephrology consult if this does not improve #Coronary artery disease with a history of bypass Has multiple statins, Byetta, Zetia, fenofibrate, gemfibrozil on his allergy list but unknown reaction Pending clinical status we will resume beta-alessandra after surgery, will resume aspirin when cleared by podiatry to do so #DVT ppx: SCDs Roya Garza MD Charges/Coding Visit Charges Inpatient E&M: 70604 Subs Hosp L2
[2022-03-02 08:09] LABS: ALB/GLOB Ratio 0.4 RATIO (0.9-2.4); AST(SGOT) 25 U/L (15-37); Alanine Aminotransfer ALT/SGPT 23 U/L (16-61); Albumin, Serum 1.9 g/dL (3.2-5.0); Alkaline Phosphatase 125 U/L (45-117); Anion Gap 7 (5-15); BUN 47 mg/dL (7-18); BUN/Creat Ratio 22.8 RATIO (10-20); Calcium,Total 8.5 mg/dL (8.5-10.1); Chloride 107 mmol/L (98-107); Creatinine, Serum 2.06 mg/dL (0.70-1.30); EST Glomerular Filtration Rate 33 mL/min (>60); Est Glom Filt Rate - Afr Amer 40 mL/min (>60); Estimated Creatinine Clearance 29.95 ml/min; Glucose 185 mg/dL (74-106); Protein, Total 6.9 g/dL (6.4-8.2); Sodium Level 137 mmol/L (136-145)
[2022-03-02] MEDS: Insulin Glargine-YFGN 100 UNIT/ML Pen 25 UNIT SC ×2 (11:09→20:45)
--- NOTE | 2022-03-02 13:05 | CASEMGMT ---
TIFFANY ARREOLA Assessment: TIFFANY ARREOLA to room to talk with pt and for initial transition planning/care coordination assessment. TIFFANY ARREOLA introduced self and role at [facility], pt voices understanding and consents to assessment. Noted pt w/some confusion at this time. The following information provided by pt's . Care providers, pharmacy, and demographics verified/updated. PCP:Dr Villaseñor Specialists:Dr Eugene- vascular OR, Dr Oliver- pod, Dr Muniz-cardio; Dr Serna-nephro, Dr Connell-endocrinology. [facility]: [facility] Insurance: [employer] [facility] Prescription Benefit: yes LW/HPOA: Pt has LW/HCPOA on file at [facility]. His HCPOA is , Kassandra Ba. LNOK: Kassandra Ba, Living Arrangements: Pt lives with in a one-story home w/basement, with 3 steps to enter with a rail. states pt was I in ADL's prior to hospitalization. Transportation: Pt does not drive. provides transportation. DME: Pt has an electric scooter, tub bench, walker, and a cane, but does not use any AD to ambulate. Also has a W/C available, but does not use. Pt has a functioning glucometer w/supplies and has insulin/medications. HHC/SNF: Pt has been to [facility] and [facility] in the past and has had HHC. states she does not feel comfortable w/pt returning home @ d/c, stating, I don't have help @ home. initially stated wished to return home @ d/c, but then pointed to his and stated, It's up to her. confirms she wishes for pt go to a SNF. states 1st preference would be [facility] and 2nd is [facility], made aware. Asya SAHU RN, CM
[2022-03-02 13:26] LABS: Bedside Glucose 272 mg/dL (74-106)
--- NOTE | 2022-03-02 13:49 | CASEMGMT ---
RN CM NOTE: Gloria NOYOLA, notified of request for referral to SNF, 1st choice being [facility], 2nd choice [facility]. Asya SAHU RN CM
[2022-03-02 17:00] LABS: Bedside Glucose 204 mg/dL (74-106)
--- NOTE | 2022-03-02 17:26 | PCM.PROGNOTE ---
Subjective Subjective Patient is seen bedside resting comfortably this afternoon watching basketball. His left foot is elevated with dressings intact. He reports no events overnight. However during our discussion patient seems very confused, this was discussed with nursing who confirms he was confused throughout the night. He states overall that he feels pretty good. He denies any constitutional symptoms today. No further complaints today. Objective Data Objective Data Vital Signs: Vital Signs Temp Pulse Resp BP Pulse Ox O2 Del Method 99.9 F H 81 16 133/66 H 97 Room Air 03/02/22 14:40 03/02/22 14:40 03/02/22 14:40 03/02/22 14:40 03/02/22 14:40 03/02/22 14:40 Oxygen Delivery Method Room Air Weight: 95.254 kg Body Mass Index (BMI) 29.2 Intake & Output: Intake and Output for Last 24 Hours 02/28/22 03/01/22 03/02/22 23:59 23:59 23:59 Intake Total 2227.5 / 2347.5 2327.5 / 2327.5 Output Total 600 / 600 Balance 2227.5 / 2197.5 1727.5 / 1727.5 Lab / Micro Data Result Diagrams: 03/02/22 05:43 03/02/22 05:43 Labs: Laboratory Results - last 24 hr 03/01/22 17:27: POC Glucose 248 H 03/01/22 21:25: POC Glucose 259 H 03/02/22 05:42: POC Glucose 186 H 03/02/22 05:43: WBC 9.3, RBC 3.39 L, Hgb 9.5 L, Hct 29.7 L, MCV 87.6, MCH 28.0, MCHC 32.0, RDW Std Deviation 43.2, RDW Coeff of Kelsey 13.3, Plt Count 283, MPV 9.4, Immature Gran % (Auto) 0.400, Neut % (Auto) 78.6 H, Lymph % (Auto) 12.1 L, [place] % (Auto) 7.3, Eos % (Auto) 1.2, Baso % (Auto) 0.4, Absolute Neuts (auto) 7.3, Absolute Lymphs (auto) 1.13, Nucleated RBC % 0 03/02/22 05:43: Sodium 137, Potassium 4.0, Chloride 107, Carbon Dioxide 23.0, Anion Gap 7, BUN 47 H, Creatinine 2.06 H, Estim Creat Clear Calc 29.95, Est GFR (MDRD) Af Amer 40 L, Est GFR (MDRD) Non-Af 33 L, BUN/Creatinine Ratio 22.8 H, Glucose 185 H, Calcium 8.5, Total Bilirubin 0.50, AST 25, ALT 23, Alkaline Phosphatase 125 H, Total Protein 6.9, Albumin 1.9 L, Globulin 5.0 H, Albumin/Globulin Ratio 0.4 L 03/02/22 11:08: POC Glucose 272 H 03/02/22 16:31: POC Glucose 204 H Micro: Microbiology 03/01/22 11:05 Blood Culture (Wb) - Anticubital Left Bacteria Detection (PCR) - Preliminary Staphylococcus aureus mecA Resistance Marker 03/01/22 11:05 Blood Culture (Wb) - Anticubital Left Blood Culture - Preliminary 03/01/22 16:24 Tissue - Left Foot Gram Stain - Final 03/01/22 16:24 Tissue - Left Foot Wound Culture - Preliminary Staphylococcus aureus 03/01/22 16:59 Tissue - Left Foot Gram Stain - Final 03/01/22 16:59 Tissue - Left Foot Wound Culture - Preliminary Staphylococcus aureus 03/01/22 16:19 Tissue - Aerobic & Anaerobic Swabs Gram Stain - Final 03/01/22 16:19 Tissue - Aerobic & Anaerobic Swabs Wound Culture - Preliminary Staphylococcus aureus 03/02/22 10:30 Nasal Secretion SARS-CoV-2 & FLU Antigen (Rapid) - Final 03/01/22 10:30 Blood Culture (Wb) - Right Forearm Blood Culture - Preliminary 03/01/22 19:38 Mucosa - Nasopharyngeal Respiratory Panel (PCR) - Final Radiography Diagnostic Testing: Radiology Impression Foot X-Ray 03/01/22 11:35 IMPRESSION: Foot ulcers with soft tissue gas and swelling and likely underlying acute osteomyelitis. Electronically Signed: Fermin Ivey, at 12:03 EST , Toe X-Ray 03/01/22 15:36 IMPRESSION: Intraoperative imaging of a transmetatarsal amputation of the left foot. Electronically Signed: Khang Stinson DO at 17:46 EST Reading Location ID and State: [address] [place] [address] Tel [phone], Service support , Foot X-Ray 03/01/22 17:54 IMPRESSION: Status post transmetatarsal amputation of the left foot. Electronically Signed: Khang Stinson DO at 19:01 EST Reading Location ID and State: [address] [place] [address] Tel [phone], Service support , Physical Exam Const alert, oriented x3, no apparent distress and well nourished Constitutional Narrative: Patient appears nontoxic, however is confused. General Appearance: cooperative HEENT normocephalic Eyes General Eye: normal appearance of both eyes Neck General: normal visual inspection Lymph Lymphatic: no lymphadenopathy noted and no lymphedema noted Resp normal respiratory effort Cardio regular rate and regular rhythm Extremity no joint enlargement and no calf tenderness Extremity Narrative: Left lower extremity: Absent DP and PT pulses to palpation. On Doppler PT is biphasic and DP is monophasic. Transmetatarsal amputation noted to the left lower extremity with sutures intact. Right lower extremity: Transmetatarsal amputation site noted. No evidence of wounds. No signs of infection. Skin no jaundice General Skin Exam: erythema Wound Narrative: Transmetatarsal amputation noted to the left lower extremity with sutures intact. There was mild hematogenous strikethrough to the dressings postoperatively. Site appears stable with no necrosis along the suture line. No prominent pressure points are noted. Cellulitis about the dorsal foot is subsiding/improving. No purulent drainage noted, no malodor, no visible abscess or palpable fluctuance/bogginess is noted. Amputation site is healthy appearing. Neuro oriented x3 and moves all extremities Neuro Narrative: Diminished light touch and protective sensation to the foot consistent with peripheral polyneuropathy Psych affect normal Appearance: grossly normal and appropriate Assessment & Plan Assessment/Plan (1) Gas gangrene of foot: (2) Gangrene of toe of left foot: (3) Cellulitis of left lower limb: (4) Non-pressure chronic ulcer of other part of left foot with necrosis of bone: (5) Type 2 diabetes mellitus with foot ulcer: (6) Type 2 diabetes mellitus with diabetic polyneuropathy: (7) Diabetic foot infection: (8) Other specified peripheral vascular diseases: PLAN: Plan I personally saw and evaluated the patient. S/p transmetatarsal amputation left foot. POV #1, DOS 03/01/2022, POD #1 Vascular: Nonpalpable DP and PT pulses. He was noted to have monophasic DP flow and biphasic PT flow. Presurgical labs: 03/01/2022 prior to surgical intervention WBC 16.7, ESR greater than 130, CRP markedly elevated at 329, lactate normal, albumin low 2.4, creatinine 2.51, GFR 26, BUN 51, glucose 272, alkaline phosphatase 131. Presurgical imaging: Radiographs were performed in the ED 03/01/2022 and were positive for subcutaneous air/gas in the second digit second, overlying the second metatarsal head, base of the third digit and overlying the head of the third metatarsal, diffuse forefoot swelling, and likely underlying acute osteomyelitis. Postsurgical: Infection: Transmetatarsal amputation noted to the left foot with sutures intact. Amputation stump appears healthy and viable. No necrosis along the suture line. No prominent pressure points are noted. Cellulitis about the dorsal foot is subsiding/improving. No purulent drainage noted, no malodor, no visible abscess or palpable fluctuance/bogginess is noted. WBC has improved down to 9.3 Dressings changed today consisting of Betadine soaked Adaptic, 4 x 4 gauze, ABD x2, Kerlix, 4 inch Jalil and 6 inch Jalil rolled onto the foot. Nursing to assist in daily dressing changes while in house consisting of the above. Postsurgical imaging: Noted transmetatarsal amputation of the left foot with soft tissues unremarkable. Surgical cultures currently demonstrating staph aureus with mecA resistance marker detected. Patient currently on IV Comycin, Zosyn, and clindamycin however recommend changing to vancomycin due to culture results. Medicine team will continue to follow for medical management, this is greatly appreciated. Infectious disease following for management of IV antibiotics, their input is greatly appreciated. Podiatry will continue to follow postoperatively while in house. Please do not hesitate to call with any questions or concerns. Upon patient discharge he is to follow-up with me in the office within 3 to 5 days. Jr. Tony Sullivan.P.[facility] [phone] Note: [employer] speech recognition diabetes educator software was used to create portions of this document. Sound-alike and misspelled words, as well as other diabetes educator errors may be contained in the documentation.
--- NOTE | 2022-03-02 18:46 | NURSING ---
pt starting to threaten staff. not as directable and hard time getting back into bed last time had gotten up on own. stated, im getting my keys and getting the hell out of here dr. white on unit and aware of pt increased aggitation and will order something
[2022-03-02] MEDS: 0.9% Saline Lock 10 ML Syringe IV ×2 (20:09→20:29)
[2022-03-02] MEDS: MELATONIN 10 MG TABLET PO (20:42)
[2022-03-02] MEDS: Metoprolol(XL)Succ 25 MG Tablet 12.5 MG PO (20:42)
[2022-03-02] MEDS: QUEtiapine 25 MG Tablet PO (20:42)
[2022-03-02 23:45] LABS: Bedside Glucose 137 mg/dL (74-106)
[2022-03-03] VITALS (13 sets, daily range): BP systolic 147–158; BP diastolic 56–65; PULSE 65–76; RESP 18–20; TEMP 36.4–37.3; O2SAT 94–97
[2022-03-03] MEDS: Clindamycin 600 MG/50 ML BAG 100 MG IV ×2 (05:15→11:55)
[2022-03-03] MEDS: 0.9% Saline Lock 10 ML Syringe IV ×3 (05:44→22:25)
[2022-03-03 06:11] LABS: Absolute Lymphocyte Count 1.87 X10^3/uL (0.83-4.51); Absolute Neutrophil Count 9.9 X10^3/uL (2.0-7.7); Basophil# 0.06 X10^3/uL; Basophil% 0.5 % (0-1); Eosinophil# 0.08 X10^3/uL; Eosinophils% 0.6 % (0-5); Hematocrit 33.6 % (40-54); Hemoglobin 10.7 g/dL (13.0-16.5); Lymphocyte # 1.87 X10^3/ul (0.83-4.51); Lymphocyte % 14.6 % (19-41); Mean Corp Hgb Conc 31.8 g/dL (32-36); Mean Platelet Vol. 9.3 fl (6.2-12.0); Monocyte# 0.86 X10^3/uL; Monocyte% 6.7 % (0-10); NRBC Flagged by Analyzer 0 % (0-5); Neutrophil # 9.88 X10^3/uL (2.7-7.7); Neutrophil % 77.1 % (47-70); Platelet Count 338 K/mm3 (150-450); RBC Distribution Width CV 13.2 % (11.6-14.6); RBC Distribution Width SD 42.9 fl (35.1-43.9); Red Blood Count 3.82 M/mm3 (4.6-6.2); White Blood Count 12.8 K/mm3 (4.4-11.0)
[2022-03-03 06:43] LABS: ALB/GLOB Ratio 0.4 RATIO (0.9-2.4); AST(SGOT) 31 U/L (15-37); Alanine Aminotransfer ALT/SGPT 32 U/L (16-61); Albumin, Serum 2.1 g/dL (3.2-5.0); Alkaline Phosphatase 179 U/L (45-117); Anion Gap 7 (5-15); BUN 36 mg/dL (7-18); BUN/Creat Ratio 17.6 RATIO (10-20); Chloride 107 mmol/L (98-107); Creatinine, Serum 2.05 mg/dL (0.70-1.30); EST Glomerular Filtration Rate 33 mL/min (>60); Est Glom Filt Rate - Afr Amer 40 mL/min (>60); Globulin 5.9 g/dL (2.2-4.2); Glucose 102 mg/dL (74-106); Potassium 3.7 mmol/L (3.5-5.1); Sodium Level 138 mmol/L (136-145)
[2022-03-03 07:25] LABS: Bedside Glucose 99 mg/dL (74-106)
[2022-03-03] MEDS: Juven (unflavored) Packet 1 PACKET PO ×2 (09:32→16:25)
[2022-03-03] MEDS: Insulin Glargine-YFGN 100 UNIT/ML Pen 25 UNIT SC (09:33)
[2022-03-03] MEDS: Metoprolol(XL)Succ 25 MG Tablet 12.5 MG PO ×2 (09:33→21:59)
[2022-03-03] MEDS: Glucerna Shake 120 ML LIQUID PO ×3 (09:37→16:30)
--- NOTE | 2022-03-03 10:07 | PN.HOSP_ITS ---
Subjective Subjective Agitated overnight but resting comfortably in bed this morning. When asked if he knows where he is he said yes but I do not believe them. Was minimally cooperative with exam but did not voice any other active complaints. Objective Data Objective Data Vital Signs: Vital Signs Temp Pulse Resp BP Pulse Ox O2 Del Method 98.1 F 65 18 147/62 H 94 Room Air 03/03/22 09:50 03/03/22 09:50 03/03/22 09:50 03/03/22 09:50 03/03/22 09:50 03/03/22 09:50 Oxygen Delivery Method Room Air Weight: 94 kg Body Mass Index (BMI) 29.2 Intake & Output: Intake and Output for Last 24 Hours 03/01/22 03/02/22 03/03/22 23:59 23:59 23:59 Intake Total 2227.5 / 2347.5 2547.5 / 2547.5 100 / 100 Output Total 600 / 600 100 / 100 Balance 2227.5 / 2197.5 1947.5 / 1947.5 0 / 0 Lab / Micro Data Result Diagrams: 03/03/22 05:04 03/03/22 05:04 Labs: Laboratory Results - last 24 hr 03/02/22 11:08: POC Glucose 272 H 03/02/22 16:31: POC Glucose 204 H 03/02/22 20:38: POC Glucose 137 H 03/03/22 05:04: WBC 12.8 H, RBC 3.82 L, Hgb 10.7 L, Hct 33.6 L, MCV 88.0, MCH 28.0, MCHC 31.8 L, RDW Std Deviation 42.9, RDW Coeff of Kelsey 13.2, Plt Count 338, MPV 9.3, Immature Gran % (Auto) 0.500, Neut % (Auto) 77.1 H, Lymph % (Auto) 14.6 L, [place] % (Auto) 6.7, Eos % (Auto) 0.6, Baso % (Auto) 0.5, Absolute Neuts (auto) 9.9 H, Absolute Lymphs (auto) 1.87, Nucleated RBC % 0 03/03/22 05:04: Sodium 138, Potassium 3.7, Chloride 107, Carbon Dioxide 24.0, Anion Gap 7, BUN 36 H, Creatinine 2.05 H, Estim Creat Clear Calc 30.10, Est GFR (MDRD) Af Amer 40 L, Est GFR (MDRD) Non-Af 33 L, BUN/Creatinine Ratio 17.6, Glucose 102, Calcium 9.0, Total Bilirubin 0.80, AST 31, ALT 32, Alkaline Phosphatase 179 H, Total Protein 8.0, Albumin 2.1 L, Globulin 5.9 H, Albumin/Globulin Ratio 0.4 L 03/03/22 06:30: POC Glucose 99 Micro: Microbiology 03/01/22 11:05 Blood Culture (Wb) - Anticubital Left Bacteria Detection (PCR) - Final Staphylococcus aureus mecA Resistance Marker 03/01/22 11:05 Blood Culture (Wb) - Anticubital Left Blood Culture - Preliminary Meth. resistant Staph. aureus 03/01/22 16:24 Tissue - Left Foot Gram Stain - Final 03/01/22 16:24 Tissue - Left Foot Wound Culture - Final Meth. resistant Staph. aureus 03/01/22 16:59 Tissue - Left Foot Gram Stain - Final 03/01/22 16:59 Tissue - Left Foot Wound Culture - Final Meth. resistant Staph. aureus 03/01/22 16:19 Tissue - Aerobic & Anaerobic Swabs Gram Stain - Final 03/01/22 16:19 Tissue - Aerobic & Anaerobic Swabs Wound Culture - Final Meth. resistant Staph. aureus 03/01/22 10:30 Blood Culture (Wb) - Right Forearm Blood Culture - Preliminary No growth in 48 hours. 03/02/22 10:30 Nasal Secretion SARS-CoV-2 & FLU Antigen (Rapid) - Final 03/01/22 19:38 Mucosa - Nasopharyngeal Respiratory Panel (PCR) - Final Physical Exam Const Constitutional Narrative: Resting comfortably, minimally cooperative with questions. Said he was told he was at [place] but said he did not believe them HEENT normocephalic and head/scalp atraumatic Eyes Eyes Narrative: EOM grossly intact, anicteric Neck supple Resp normal respiratory effort and clear to auscultation bilaterally Cardio regular rate and regular rhythm GI soft to palpation, non-tender and non-distended Extremity Extremity Narrative: Partial amputation of his right foot, left foot wrapped status post surgery Neuro moves all extremities Neuro Narrative: No overt focal deficits appreciated Psych Psych Narrative: Combative and not cooperative Assessment & Plan Assessment/Plan (1) Gangrene of toe of left foot: PLAN: Plan #Gas gangrene of the left foot Foot ulcers with soft tissue gas and swelling and likely underlying acute osteomyelitis seen on x-ray of the foot White blood cell count 16.7 ESR greater than 130 and CRP 329 Patient urgently to the OR 03/[address] Mckenna ID consulted Cultures pending Vancomycin/Zosyn/clindamycin Pain control Glucose control 03/02: Taken to the OR 03/[address] Mckenna and is status post transmetatarsal amputation of the left foot. Podiatry still following/managing. Dressing changed today. Did have x-ray after surgery which noted the transmetatarsal amputation. Cultures, both tissue and blood, demonstrating staph aureus, he was presently on vancomycin. Infectious disease managing antibiotics, continue to follow cultures, also remains on Zosyn and clindamycin. Will need to follow with podiatry in the office within 3 to 5 days upon discharge 03/03: Has had some delirium, Seroquel and melatonin added nightly. Remains on antibiotics, ID on board. Growing MRSA. #Type 2 diabetes mellitus We will continue 25 units twice daily of his long-acting Glucose checks and sliding scale insulin 03/03: Significantly improved with control of infection, was scaled back to 22 units twice daily and then to 20u BID #JAMI on CKD stage IV Likely due to underlying infection Being hydrated Will trend Can consider nephrology consult if this does not improve 03/03: Slightly improved, losartan has still been held #Coronary artery disease with a history of bypass Has multiple statins, Byetta, Zetia, fenofibrate, gemfibrozil on his allergy list but unknown reaction Resume BB, cont aspirin #DVT ppx: SCDs Roya Garza MD Charges/Coding Visit Charges Inpatient E&M: 82190 Subs Hosp L2
[2022-03-03 12:10] LABS: Bedside Glucose 111 mg/dL (74-106)
[2022-03-03 13:13] LABS: Vancomycin, Trough Level 19.2 ug/mL (5.0-15.0)
[2022-03-03] MEDS: Aspirin 81 MG TAB.CHEW (15:19)
--- NOTE | 2022-03-03 16:00 | ECHOD_ITS ---
Reason For Study: MRSA Bacteremia, Eval for vegetation Procedure This was a 2D Doppler, Color Flow transthoracic echocardiogram. The study was technically difficult. Exam performed portable in patient room. Left Ventricle Normal LV size. Sigmoid septum. Left ventricular systolic function is normal. The estimated ejection fraction is 55 %. Stage 2 diastolic dysfunction. No regional wall motion abnormalities noted. Right Ventricle Normal RV size. Normal systolic function. Atria The left atrium is mildly enlarged. Normal right atrium. No doppler evidence for ASD. Mitral Valve There is mild mitral annular calcification. Mild diffuse mitral valve thickening. Mild-Moderate (1- 2+) mitral valve insufficiency. Tricuspid Valve Normal tricuspid valve. Mild tricuspid valve insufficiency. Right ventricular systolic pressure estimated to be 39 mmHg. Aortic Valve Trisinus/trileaflet aortic valve. Mild diffuse aortic valve calcification. Trivial aortic valve insufficiency. Pulmonic Valve The pulmonic valve is not well visualized. Great Vessels Normal sized aortic root. Pericardium/Pleural No pericardial effusion. MMode/2D Measurements & Calculations LVIDd: 5.1 cm IVSd: 1.5 cm Ao root diam: 3.4 cm LVIDs: 3.5 cm LVPWd: 1.1 cm RVDd: 4.4 cm FS: 31.6 % LAV(MOD-bp): 55.3 ml LA A4 area: 21.3 cm2 LA dimension(2D): 5.3 cm LAV(MOD-bp) Indexed: 25.9 ml/m2 LAV(MOD-sp2): 37.2 ml LAV(MOD-sp4): 57.4 ml RA A4 area: 10.1 cm2 Time Measurements MV dec time: 0.21 sec Doppler Measurements & Calculations MV E max ancelmo: 88.1 cm/sec Lat Peak E' Ancelmo: 10.8 cm/sec Med Peak E' Ancelmo: 4.7 cm/sec MV A max ancelmo: 71.9 cm/sec E/E' lat: 8.1 E/E' med: 18.6 MV E/A: 1.2 Ao V2 max: 114.8 cm/sec LV V1 max: 109.7 cm/sec PA V2 max: 87.2 cm/sec Ao max P.3 mmHg LV V1 max P.8 mmHg Ao V2 mean: 82.6 cm/sec Ao mean P.9 mmHg Ao V2 VTI: 27.1 cm TR max ancelmo: 300.0 cm/sec TR max P.0 mmHg ECHO/Echo Complete Interpretation Summary The study was technically difficult. Left ventricular systolic function is normal. The estimated ejection fraction is 55 %. Sigmoid septum. The left atrium is mildly enlarged. There is mild mitral annular calcification. Mild diffuse mitral valve thickening. Mild-Moderate (1-2+) mitral valve insufficiency. Mild tricuspid valve insufficiency. Mild diffuse aortic valve calcification. Trivial aortic valve insufficiency. Right ventricular systolic pressure estimated to be 39 mmHg. Stage 2 diastolic dysfunction. Ordering Physician: Roya Garza Referring Physician: Nawaf Villaseñor Performed By: Alla Cochran RDCS, RVT
[2022-03-03] MEDS: Insulin Lispro 100 UNIT/ML INSULN.PEN SC ×2 (16:25→22:24)
[2022-03-03 16:45] LABS: Bedside Glucose 158 mg/dL (74-106)
--- NOTE | 2022-03-03 17:05 | PCM.RX.CS ---
Consult Pharmacy has been consulted to manage selected antiobiotic: Vancomycin Type of Consult: Follow-up Suspected Infection: Skin/Soft tissue, Osteomyelitis Prior Doses of Antibiotics Received/Current Regimen: Currently on 750mg iv q24h. Labs: Sodium 138 mmol/L (136-145) 03/03/22 05:04 Potassium 3.7 mmol/L (3.5-5.1) 03/03/22 05:04 Chloride 107 mmol/L (98-107) 03/03/22 05:04 Carbon Dioxide 24.0 mmol/L (21.0-32.0) 03/03/22 05:04 Anion Gap 7 (5-15) 03/03/22 05:04 BUN 36 mg/dL (7-18) H 03/03/22 05:04 Creatinine 2.05 mg/dL (0.70-1.30) H 03/03/22 05:04 Est GFR (MDRD) Af Amer 40 mL/min (>60) L 03/03/22 05:04 Est GFR (MDRD) Non-Af 33 mL/min (>60) L 03/03/22 05:04 BUN/Creatinine Ratio 17.6 RATIO (10-20) 03/03/22 05:04 Glucose 102 mg/dL (74-106) 03/03/22 05:04 Vancomycin Trough 19.2 ug/mL (5.0-15.0) H 03/03/22 12:49 Microbiology: Microbiology 03/01/22 10:30 Blood Culture (Wb) - Right Forearm Blood Culture - Preliminary Staphylococcus aureus 03/01/22 11:05 Blood Culture (Wb) - Anticubital Left Bacteria Detection (PCR) - Final Staphylococcus aureus mecA Resistance Marker 03/01/22 11:05 Blood Culture (Wb) - Anticubital Left Blood Culture - Preliminary Meth. resistant Staph. aureus 03/01/22 16:24 Tissue - Left Foot Gram Stain - Final 03/01/22 16:24 Tissue - Left Foot Wound Culture - Final Meth. resistant Staph. aureus 03/01/22 16:59 Tissue - Left Foot Gram Stain - Final 03/01/22 16:59 Tissue - Left Foot Wound Culture - Final Meth. resistant Staph. aureus 03/01/22 16:19 Tissue - Aerobic & Anaerobic Swabs Gram Stain - Final 03/01/22 16:19 Tissue - Aerobic & Anaerobic Swabs Wound Culture - Final Meth. resistant Staph. aureus 03/02/22 10:30 Nasal Secretion SARS-CoV-2 & FLU Antigen (Rapid) - Final 03/01/22 19:38 Mucosa - Nasopharyngeal Respiratory Panel (PCR) - Final Weight used for dosin kg Estimated Creatinine Clearance: 30 ml/min Goal Trough: 15-20 mcg/mL Pharmacy Plan for Drug Dosing: Trough level today 19.2 (goal range 15-20mcg/ml). Renal Cr improved from 2.5 (03.01.22) to 2.05 today. Will continue same dose. Follow up trough level ordered for 1.3.23 before another 3rd dose. Pharmacy Service will continue to monitor and adjust dosing as required. Follow-Up Labs: Trough Vancomycin - 1.3.23 @1300 before 1330 dose
[2022-03-03] MEDS: MELATONIN 10 MG TABLET PO (22:01)
[2022-03-03] MEDS: QUEtiapine 25 MG Tablet PO (22:01)
[2022-03-03] MEDS: Insulin Glargine-YFGN 100 UNIT/ML Pen 20 UNIT SC (22:22)
[2022-03-03 22:30] LABS: Bedside Glucose 188 mg/dL (74-106)
[2022-03-04] VITALS (11 sets, daily range): BP systolic 116–155; BP diastolic 50–66; PULSE 53–68; RESP 16–18; TEMP 35.9–36.7; O2SAT 95–98
[2022-03-04] MEDS: Insulin Lispro 100 UNIT/ML INSULN.PEN SC ×4 (06:46→22:00)
[2022-03-04 07:11] LABS: Bedside Glucose 150 mg/dL (74-106)
[2022-03-04 07:44] LABS: Absolute Lymphocyte Count 1.44 X10^3/uL (0.83-4.51); Absolute Neutrophil Count 7.4 X10^3/uL (2.0-7.7); Basophil# 0.05 X10^3/uL; Basophil% 0.5 % (0-1); Eosinophil# 0.05 X10^3/uL; Eosinophils% 0.5 % (0-5); Hemoglobin 9.9 g/dL (13.0-16.5); Lymphocyte # 1.44 X10^3/ul (0.83-4.51); Lymphocyte % 14.6 % (19-41); Mean Corp Hgb Conc 31.9 g/dL (32-36); Mean Corpuscular Hgb 28.1 pg (27.0-32.0); Mean Corpuscular Volume 88.1 fL (80-94); Mean Platelet Vol. 9.3 fl (6.2-12.0); Monocyte# 0.84 X10^3/uL; Monocyte% 8.5 % (0-10); NRBC Flagged by Analyzer 0 % (0-5); Neutrophil # 7.44 X10^3/uL (2.7-7.7); Neutrophil % 75.4 % (47-70); Platelet Count 311 K/mm3 (150-450); RBC Distribution Width CV 13.5 % (11.6-14.6); RBC Distribution Width SD 43.7 fl (35.1-43.9); Red Blood Count 3.52 M/mm3 (4.6-6.2); White Blood Count 9.9 K/mm3 (4.4-11.0)
[2022-03-04 08:32] LABS: ALB/GLOB Ratio 0.4 RATIO (0.9-2.4); AST(SGOT) 19 U/L (15-37); Alanine Aminotransfer ALT/SGPT 25 U/L (16-61); Albumin, Serum 1.9 g/dL (3.2-5.0); Alkaline Phosphatase 146 U/L (45-117); Anion Gap 5 (5-15); BUN 39 mg/dL (7-18); BUN/Creat Ratio 19.4 RATIO (10-20); Calcium,Total 8.9 mg/dL (8.5-10.1); Chloride 110 mmol/L (98-107); Creatinine, Serum 2.01 mg/dL (0.70-1.30); EST Glomerular Filtration Rate 34 mL/min (>60); Est Glom Filt Rate - Afr Amer 41 mL/min (>60); Globulin 5.4 g/dL (2.2-4.2); Glucose 158 mg/dL (74-106); Protein, Total 7.3 g/dL (6.4-8.2); Sodium Level 140 mmol/L (136-145)
--- NOTE | 2022-03-04 08:55 | PN.HOSP_ITS ---
Subjective Subjective Denies pain in foot . Objective Data Objective Data Vital Signs: Vital Signs Temp Pulse Resp BP Pulse Ox O2 Del Method 36.6 C 53 L 18 151/61 H 98 Room Air 03/04/22 04:09 03/04/22 07:28 03/04/22 04:09 03/04/22 04:09 03/04/22 07:23 03/04/22 07:23 Oxygen Delivery Method Room Air Weight: 93.8 kg Body Mass Index (BMI) 29.2 Intake & Output: Intake and Output for Last 24 Hours 03/02/22 03/03/22 03/04/22 23:59 23:59 23:59 Intake Total 2547.5 / 2547.5 815 / 815 120 / 120 Output Total 600 / 600 300 / 300 Balance 1947.5 / 1947.5 515 / 515 120 / 120 Lab / Micro Data Result Diagrams: 03/04/22 06:50 03/04/22 06:50 Labs: Laboratory Results - last 24 hr 03/03/22 11:18: POC Glucose 111 H 03/03/22 12:49: Vancomycin Trough 19.2 H 03/03/22 16:23: POC Glucose 158 H 03/03/22 21:52: POC Glucose 188 H 03/04/22 06:43: POC Glucose 150 H 03/04/22 06:50: WBC 9.9, RBC 3.52 L, Hgb 9.9 L, Hct 31.0 L, MCV 88.1, MCH 28.1, MCHC 31.9 L, RDW Std Deviation 43.7, RDW Coeff of Kelsey 13.5, Plt Count 311, MPV 9.3, Immature Gran % (Auto) 0.500, Neut % (Auto) 75.4 H, Lymph % (Auto) 14.6 L, [place] % (Auto) 8.5, Eos % (Auto) 0.5, Baso % (Auto) 0.5, Absolute Neuts (auto) 7. 4, Absolute Lymphs (auto) 1.44, Nucleated RBC % 0 03/04/22 06:50: Sodium 140, Potassium 4.0, Chloride 110 H, Carbon Dioxide 25.0, Anion Gap 5, BUN 39 H, Creatinine 2.01 H, Estim Creat Clear Calc 30.70, Est GFR (MDRD) Af Amer 41 L, Est GFR (MDRD) Non-Af 34 L, BUN/Creatinine Ratio 19.4, Glucose 158 H, Calcium 8.9, Total Bilirubin 0.60, AST 19, ALT 25, Alkaline Phosphatase 146 H, C-React Prot Ext Range 232.00 H, Total Protein 7.3, Albumin 1.9 L, Globulin 5.4 H, Albumin/Globulin Ratio 0.4 L Micro: Microbiology 03/01/22 10:30 Blood Culture (Wb) - Right Forearm Blood Culture - Final Staphylococcus aureus 03/01/22 11:05 Blood Culture (Wb) - Anticubital Left Bacteria Detection (PCR) - Final Staphylococcus aureus mecA Resistance Marker 03/01/22 11:05 Blood Culture (Wb) - Anticubital Left Blood Culture - Final Meth. resistant Staph. aureus 03/01/22 16:24 Tissue - Left Foot Gram Stain - Final 03/01/22 16:24 Tissue - Left Foot Wound Culture - Final Meth. resistant Staph. aureus 03/01/22 16:59 Tissue - Left Foot Gram Stain - Final 03/01/22 16:59 Tissue - Left Foot Wound Culture - Final Meth. resistant Staph. aureus 03/01/22 16:19 Tissue - Aerobic & Anaerobic Swabs Gram Stain - Final 03/01/22 16:19 Tissue - Aerobic & Anaerobic Swabs Wound Culture - Final Meth. resistant Staph. aureus 03/02/22 10:30 Nasal Secretion SARS-CoV-2 & FLU Antigen (Rapid) - Final 03/01/22 19:38 Mucosa - Nasopharyngeal Respiratory Panel (PCR) - Final Physical Exam Const alert and no apparent distress Resp normal respiratory effort, no retractions, no use of accessory muscles and clear to auscultation bilaterally Cardio regular rate, regular rhythm, S1 normal heart sound and S2 normal heart sound GI normal to inspection, nondistended, normoactive bowel sounds Extremity Extremity Narrative: left foot bandaged--did not remove. Assessment & Plan Assessment/Plan (1) Gangrene of toe of left foot: PLAN: Foot ulcers with soft tissue gas and swelling and likely underlying acute osteomyelitis seen on x-ray of the foot White blood cell count 16.7 ESR greater than 130 and CRP 329 Patient urgently to the OR 03/[address] Mckenna ID consulted Cultures pending Vancomycin/Zosyn/clindamycin Pain control Glucose control 03/02: Taken to the OR 03/[address] Mckenna and is status post transmetatarsal amputation of the left foot. Podiatry still following/managing. Dressing changed today. Did have x-ray after surgery which noted the transmetatarsal amputation. Cultures, both tissue and blood, demonstrating staph aureus, he was presently on vancomycin. Infectious disease managing antibiotics, continue to follow cultures, also remains on Zosyn and clindamycin. Will need to follow with podiatry in the office within 3 to 5 days upon discharge 03/03: Has had some delirium, Seroquel and melatonin added nightly. Remains on antibiotics, ID on board. Growing MRSA. (2) JAMI (acute kidney injury): PLAN: JAMI on CKD stage IV Likely due to underlying infection Will trend Can consider nephrology consult if this does not improve 03/03: Slightly improved, losartan has still been held PLAN: Plan Chronic conditions: * Type 2 diabetes mellitus. continue 25 units twice daily of his long-acting. Glucose checks and sliding scale insulin. 03/03: Significantly improved with control of infection, was scaled back to 22 units twice daily and then to 20u BID * Coronary artery disease with a history of bypass. Has multiple statins, Byetta, Zetia, fenofibrate, gemfibrozil on his allergy list but unknown reaction. Resume BB, cont aspirin #DVT ppx: SCDs Charges/Coding Visit Charges Inpatient E&M: 58882 Subs Hosp L2
[2022-03-04] MEDS: Aspirin E.C. 81 MG Tablet PO (09:28)
[2022-03-04] MEDS: Juven (unflavored) Packet 1 PACKET PO ×2 (09:28→16:06)
[2022-03-04] MEDS: Acetaminophen 325 MG Tablet 650 MG PO (09:29)
[2022-03-04] MEDS: Metoprolol(XL)Succ 25 MG Tablet 12.5 MG PO (09:29)
--- NOTE | 2022-03-04 10:59 | PN_ITS ---
Subjective Subjective Patient is seen bedside resting this a.m. with left foot elevated. Nursing staff states that he is still confused and has been walking on his amputation site. When asked about walking on his amputation stump patient seems to be confused as to why he is not able to do so. He denies any pain to the foot. He denies any constitutional symptoms today. He has no further complaints. Objective Data Objective Data Vital Signs: Vital Signs Temp Pulse Resp BP Pulse Ox O2 Del Method 96.8 F L 62 16 155/50 H 95 Room Air 03/04/22 09:26 03/04/22 09:29 03/04/22 09:26 03/04/22 09:29 03/04/22 09:26 03/04/22 09:30 Oxygen Delivery Method Room Air Weight: 93.8 kg Body Mass Index (BMI) 29.2 Intake & Output: Intake and Output for Last 24 Hours 03/02/22 03/03/22 03/04/22 23:59 23:59 23:59 Intake Total 2547.5 / 2547.5 815 / 815 120 / 120 Output Total 600 / 600 300 / 300 Balance 1947.5 / 1947.5 515 / 515 120 / 120 Lab / Micro Data Result Diagrams: 03/04/22 06:50 03/04/22 06:50 Labs: Laboratory Results - last 24 hr 03/03/22 11:18: POC Glucose 111 H 03/03/22 12:49: Vancomycin Trough 19.2 H 03/03/22 16:23: POC Glucose 158 H 03/03/22 21:52: POC Glucose 188 H 03/04/22 06:43: POC Glucose 150 H 03/04/22 06:50: WBC 9.9, RBC 3.52 L, Hgb 9.9 L, Hct 31.0 L, MCV 88.1, MCH 28.1, MCHC 31.9 L, RDW Std Deviation 43.7, RDW Coeff of Kelsey 13.5, Plt Count 311, MPV 9.3, Immature Gran % (Auto) 0.500, Neut % (Auto) 75.4 H, Lymph % (Auto) 14.6 L, [place] % (Auto) 8.5, Eos % (Auto) 0.5, Baso % (Auto) 0.5, Absolute Neuts (auto) 7.4, Absolute Lymphs (auto) 1.44, Nucleated RBC % 0 03/04/22 06:50: Sodium 140, Potassium 4.0, Chloride 110 H, Carbon Dioxide 25.0, Anion Gap 5, BUN 39 H, Creatinine 2.01 H, Estim Creat Clear Calc 30.70, Est GFR (MDRD) Af Amer 41 L, Est GFR (MDRD) Non-Af 34 L, BUN/Creatinine Ratio 19.4, Glu cose 158 H, Calcium 8.9, Total Bilirubin 0.60, AST 19, ALT 25, Alkaline Phosp hatase 146 H, C-React Prot Ext Range 232.00 H, Total Protein 7.3, Albumin 1.9 L, Globulin 5.4 H, Albumin/Globulin Ratio 0.4 L Micro: Microbiology 03/01/22 10:30 Blood Culture (Wb) - Right Forearm Blood Culture - Final Staphylococcus aureus 03/01/22 11:05 Blood Culture (Wb) - Anticubital Left Bacteria Detection (PCR) - Final Staphylococcus aureus mecA Resistance Marker 03/01/22 11:05 Blood Culture (Wb) - Anticubital Left Blood Culture - Final Meth. resistant Staph. aureus 03/01/22 16:24 Tissue - Left Foot Gram Stain - Final 03/01/22 16:24 Tissue - Left Foot Wound Culture - Final Meth. resistant Staph. aureus 03/01/22 16:59 Tissue - Left Foot Gram Stain - Final 03/01/22 16:59 Tissue - Left Foot Wound Culture - Final Meth. resistant Staph. aureus 03/01/22 16:19 Tissue - Aerobic & Anaerobic Swabs Gram Stain - Final 03/01/22 16:19 Tissue - Aerobic & Anaerobic Swabs Wound Culture - Final Meth. resistant Staph. aureus 03/02/22 10:30 Nasal Secretion SARS-CoV-2 & FLU Antigen (Rapid) - Final 03/01/22 19:38 Mucosa - Nasopharyngeal Respiratory Panel (PCR) - Final Physical Exam Const alert, oriented x3, no apparent distress and well nourished Constitutional Narrative: Patient appears nontoxic, however is confused. General Appearance: cooperative HEENT normocephalic Eyes General Eye: normal appearance of both eyes Neck General: normal visual inspection Lymph Lymphatic: no lymphadenopathy noted and no lymphedema noted Resp normal respiratory effort Cardio regular rate and regular rhythm Extremity no joint enlargement and no calf tenderness Extremity Narrative: Left lower extremity: Absent DP and PT pulses to palpation. On Doppler PT is biphasic and DP is monophasic. Transmetatarsal amputation noted to the left lower extremity with sutures intact. Right lower extremity: Transmetatarsal amputation site noted. No evidence of wounds. No signs of infection. Skin no jaundice General Skin Exam: erythema Wound Narrative: Transmetatarsal amputation noted to the left lower extremity with sutures intact. There was mild hematogenous strikethrough to the dressings postoperatively. Site appears stable with no necrosis along the suture line. No prominent pressure points are noted. Cellulitis about the dorsal foot is subsiding/improving. No purulent drainage noted, no malodor, no visible abscess or palpable fluctuance/bogginess is noted. Amputation site is healthy appearing. Neuro oriented x3 and moves all extremities Neuro Narrative: Diminished light touch and protective sensation to the foot consistent with peripheral polyneuropathy Psych affect normal Appearance: grossly normal and appropriate Assessment & Plan Assessment/Plan (1) Gas gangrene of foot: (2) Gangrene of toe of left foot: (3) Cellulitis of left lower limb: (4) Non-pressure chronic ulcer of other part of left foot with necrosis of bone: (5) Type 2 diabetes mellitus with foot ulcer: (6) Type 2 diabetes mellitus with diabetic polyneuropathy: (7) Diabetic foot infection: (8) Other specified peripheral vascular diseases: (9) History of transmetatarsal amputation of left foot: (10) History of transmetatarsal amputation of right foot: (11) Osteomyelitis, unspecified: PLAN: Plan I personally saw and evaluated the patient. S/p transmetatarsal amputation left foot. POV #2, DOS 03/01/2022, POD #3 Vascular: Nonpalpable DP and PT pulses. He was noted to have monophasic DP flow and biphasic PT flow. Presurgical labs: 03/01/2022 prior to surgical intervention WBC 16.7, ESR greater than 130, CRP markedly elevated at 329, lactate normal, albumin low 2.4, creatinine 2.51, GFR 26, BUN 51, glucose 272, alkaline phosphatase 131. Presurgical imaging: Radiographs were performed in the ED 03/01/2022 and were positive for subcutaneous air/gas in the second digit second, overlying the second metatarsal head, base of the third digit and overlying the head of the third metatarsal, diffuse forefoot swelling, and likely underlying acute o steomyelitis. Postsurgical: Infection: Transmetatarsal amputation noted to the left foot with sutures intact. Amputation stump appears healthy and viable. No necrosis along the suture line. No prominent pressure points are noted. Cellulitis about the dorsal foot is subsiding/improving. No purulent drainage noted, no malodor, no visible abscess or palpable fluctuance/bogginess is noted. At time of surgery prior to closure vancomycin powder was placed throughout the amputation stump. WBC currently at 9.9 Dressings changed today consisting of Betadine soaked Adaptic, 4 x 4 gauze, ABD x2, Kerlix, 4 inch Jalil and 6 inch Jalil rolled onto the foot. Nursing to assist in daily dressing changes while in house consisting of the above. Postsurgical imaging: Noted transmetatarsal amputation of the left foot with soft tissues unremarkable. Weightbearing: He is to remain nonweightbearing to the left lower extremity, full weightbearing to right lower extremity may utilize left heel to aid in standing and for transitions otherwise nonweightbearing. Patient was reminded of his strict nonweightbearing status again today. Edema: He is to elevate the left lower extremity at all times of rest. Surgical cultures currently demonstrating staph aureus with mecA resistance marker detected. Patient currently on IV Vanco/Zosyn, and clindamycin. Medicine team will continue to follow for medical management, this is greatly appreciated. Infectious disease following for management of IV antibiotics, their input is greatly appreciated. Podiatry will continue to follow postoperatively while in house. Please do not hesitate to call with any questions or concerns. Upon patient discharge he is to follow-up with me in the office within 3 to 5 days. Rayshawn Mckenna Jr. D.P.M. [facility] [phone] Note: [employer] speech recognition mailroom clerk software was used to create portions of this document. Sound-alike and misspelled words, as well as other mailroom clerk errors may be contained in the documentation.
[2022-03-04] MEDS: Insulin Glargine-YFGN 100 UNIT/ML Pen 20 UNIT SC ×2 (11:21→22:00)
[2022-03-04 11:45] LABS: Bedside Glucose 259 mg/dL (74-106)
[2022-03-04] MEDS: Glucerna Shake 120 ML LIQUID PO ×2 (13:56→22:00)
[2022-03-04 16:31] LABS: Bedside Glucose 204 mg/dL (74-106)
[2022-03-04] MEDS: MELATONIN 10 MG TABLET PO (22:00)
[2022-03-04] MEDS: QUEtiapine 25 MG Tablet PO (22:00)
[2022-03-04 22:19] LABS: Bacteria 0 SEEN /hpf (None Seen); Mucous, Urine 0 SEEN /hpf (<or=2+)
[2022-03-04 22:28] LABS: Color, Urine Red (Yellow); Glucose, Dipstick Normal (Normal); Ketone-Dipstick 5 mg/dl (Negative); Leukocyte Esterase-Dipstick 25 /ul (Negative); Nitrite-Dipstick Negative (Negative); Occult Blood-Urine 250 /ul (Negative); Protein-Dipstick 500 mg/dl (Negative); Urine Bilirubin Dipstick Negative (Negative); Urine Clarity Turbid (Clear); Urine Urobilinogen Normal (Normal)
[2022-03-04 22:30] LABS: Bedside Glucose 165 mg/dL (74-106)
[2022-03-04 22:41] LABS: Red Blood Cells-Urine > 100 SEEN /hpf (0-5)
[2022-03-04 22:45] LABS: White Blood Cells 25-50 SEEN /hpf (0-5)
[2022-03-04 22:46] LABS: Squamous Epithelial Cells - UA 5-10 SEEN /hpf (0-5)
[2022-03-05] VITALS (9 sets, daily range): BP systolic 148–163; BP diastolic 64–76; PULSE 62–80; RESP 17–20; TEMP 36.2–36.8; O2SAT 95–99
[2022-03-05] MEDS: Ceftriaxone 1 GM/50 ML BAG IV (04:47)
[2022-03-05] MEDS: 0.9% Saline Lock 10 ML Syringe IV ×3 (04:49→13:35)
[2022-03-05 05:53] LABS: Absolute Lymphocyte Count 1.75 X10^3/uL (0.83-4.51); Absolute Neutrophil Count 7.4 X10^3/uL (2.0-7.7); Basophil# 0.06 X10^3/uL; Basophil% 0.6 % (0-1); Eosinophil# 0.08 X10^3/uL; Eosinophils% 0.8 % (0-5); Hematocrit 32.6 % (40-54); Hemoglobin 10.7 g/dL (13.0-16.5); Lymphocyte # 1.75 X10^3/ul (0.83-4.51); Lymphocyte % 17.2 % (19-41); Mean Corp Hgb Conc 32.8 g/dL (32-36); Mean Corpuscular Hgb 28.7 pg (27.0-32.0); Mean Corpuscular Volume 87.4 fL (80-94); Mean Platelet Vol. 9.2 fl (6.2-12.0); Monocyte# 0.78 X10^3/uL; Monocyte% 7.7 % (0-10); NRBC Flagged by Analyzer 0 % (0-5); Neutrophil # 7.43 X10^3/uL (2.7-7.7); Platelet Count 331 K/mm3 (150-450); RBC Distribution Width CV 13.4 % (11.6-14.6); Red Blood Count 3.73 M/mm3 (4.6-6.2); White Blood Count 10.2 K/mm3 (4.4-11.0)
[2022-03-05 06:27] LABS: Anion Gap 5 (5-15); BUN 47 mg/dL (7-18); Chloride 109 mmol/L (98-107); Creatinine, Serum 2.24 mg/dL (0.70-1.30); EST Glomerular Filtration Rate 30 mL/min (>60); Est Glom Filt Rate - Afr Amer 36 mL/min (>60); Estimated Creatinine Clearance 27.55 ml/min; Glucose 188 mg/dL (74-106); Potassium 4.2 mmol/L (3.5-5.1); Sodium Level 140 mmol/L (136-145)
[2022-03-05] MEDS: Insulin Lispro 100 UNIT/ML INSULN.PEN SC ×4 (06:58→22:44)
[2022-03-05 07:21] LABS: Bedside Glucose 167 mg/dL (74-106)
--- NOTE | 2022-03-05 08:16 | PN.HOSP_ITS ---
Objective Data Objective Data Vital Signs: Vital Signs Temp Pulse Resp BP Pulse Ox O2 Del Method 36.8 C 76 17 163/65 H 96 Room Air 03/05/22 03:15 03/05/22 03:15 03/05/22 03:15 03/05/22 03:15 03/05/22 03:15 03/05/22 03:15 Oxygen Delivery Method Room Air Weight: 93.8 kg Body Mass Index (BMI) 29.2 Intake & Output: Intake and Output for Last 24 Hours 03/03/22 03/04/22 03/05/22 23:59 23:59 23:59 Intake Total 815 / 815 1265 / 1265 Output Total 300 / 300 750 / 750 Balance 515 / 515 515 / 515 Lab / Micro Data Result Diagrams: 03/05/22 05:32 03/05/22 05:32 Labs: Laboratory Results - last 24 hr 03/04/22 06:50: Sodium 140, Potassium 4.0, Chloride 110 H, Carbon Dioxide 25.0, Anion Gap 5, BUN 39 H, Creatinine 2.01 H, Estim Creat Clear Calc 30.70, Est GFR (MDRD) Af Amer 41 L, Est GFR (MDRD) Non-Af 34 L, BUN/Creatinine Ratio 19.4, Glucose 158 H, Calcium 8.9, Total Bilirubin 0.60, AST 19, ALT 25, Alkaline Phosphatase 146 H, C-React Prot Ext Range 232.00 H, Total Protein 7.3, Albumin 1.9 L, Globulin 5.4 H, Albumin/Globulin Ratio 0.4 L 03/04/22 11:19: POC Glucose 259 H 03/04/22 16:04: POC Glucose 204 H 03/04/22 21:48: POC Glucose 165 H 03/04/22 22:10: Urine Color Red, Urine Clarity Turbid, Urine pH 6.0, Ur Specific [place] 1.010, Urine Protein 500 H, Urine Glucose (UA) Normal, Urine Ketones 5 H , Urine Occult Blood 250 H, Urine Nitrite Negative, Urine Bilirubin Negative, Urine Urobilinogen Normal, Ur Leukocyte Esterase 25 H, Urine RBC > 100 SEEN, Urine WBC 25-50 SEEN, Ur Squamous Epith Cells 5-10 SEEN, Urine Bacteria 0 SEEN, Urine Mucus 0 SEEN 03/05/22 05:32: WBC 10.2, RBC 3.73 L, Hgb 10.7 L, Hct 32.6 L, MCV 87.4, MCH 28.7, MCHC 32.8, RDW Std Deviation 43.0, RDW Coeff of Kelsey 13.4, Plt Count 331, M PV 9.2, Immature Gran % (Auto) 0.700, Neut % (Auto) 73.0 H, Lymph % (Auto) 17.2 L, [place] % (Auto) 7.7, Eos % (Auto) 0.8, Baso % (Auto) 0.6, Absolute Neuts (auto) 7.4, Absolute Lymphs (auto) 1.75, Nucleated RBC % 0 03/05/22 05:32: Sodium 140, Potassium 4.2, Chloride 109 H, Carbon Dioxide 26.0, Anion Gap 5, BUN 47 H, Creatinine 2.24 H, Estim Creat Clear Calc 27.55, Est GFR (MDRD) Af Amer 36 L, Est GFR (MDRD) Non-Af 30 L, BUN/Creatinine Ratio 21.0 H, Glucose 188 H, Calcium 9.0 03/05/22 06:57: POC Glucose 167 H Micro: Microbiology 03/01/22 10:30 Blood Culture (Wb) - Right Forearm Blood Culture - Final Staphylococcus aureus 03/01/22 11:05 Blood Culture (Wb) - Anticubital Left Bacteria Detection (PCR) - Final Staphylococcus aureus mecA Resistance Marker 03/01/22 11:05 Blood Culture (Wb) - Anticubital Left Blood Culture - Final Meth. resistant Staph. aureus 03/01/22 16:24 Tissue - Left Foot Gram Stain - Final 03/01/22 16:24 Tissue - Left Foot Wound Culture - Final Meth. resistant Staph. aureus 03/01/22 16:59 Tissue - Left Foot Gram Stain - Final 03/01/22 16:59 Tissue - Left Foot Wound Culture - Final Meth. resistant Staph. aureus 03/01/22 16:19 Tissue - Aerobic & Anaerobic Swabs Gram Stain - Final 03/01/22 16:19 Tissue - Aerobic & Anaerobic Swabs Wound Culture - Final Meth. resistant Staph. aureus 03/02/22 10:30 Nasal Secretion SARS-CoV-2 & FLU Antigen (Rapid) - Final 03/01/22 19:38 Mucosa - Nasopharyngeal Respiratory Panel (PCR) - Final Radiography Diagnostic Testing: Radiology Impression Echocardiogram 03/03/22 16:00 Interpretation Summary The study was technically difficult. Left ventricular systolic function is normal. The estimated ejection fraction is 55 %. Sigmoid septum. The left atrium is mildly enlarged. There is mild mitral annular calcification. Mild diffuse mitral valve thickening. Mild-Moderate (1-2+) mitral valve insufficiency. Mild tricuspid valve insufficiency. Mild diffuse aortic valve calcification. Trivial aortic valve insufficiency. Right ventricular systolic pressure estimated to be 39 mmHg. Stage 2 diastolic dysfunction. Ordering Physician: Roya Garza Referring Physician: Nawaf Villaseñor Performed By: Alla Cochran, RDPERCY, RVT Physical Exam Const no apparent distress Constitutional Narrative: Confused. Afebrile Resp normal respiratory effort, no retractions, no use of accessory muscles and clear to auscultation bilaterally Cardio regular rate, regular rhythm, S1 normal heart sound and S2 normal heart sound GI normal to inspection, nondistended, normoactive bowel sounds, soft to palpation, non-tender and non-distended Skin Skin Narrative: Left foot wrapped, did not remove. Neuro oriented x3 and CN's II-XII intact bilaterally Assessment & Plan Assessment/Plan (1) Gangrene of toe of left foot: PLAN: Foot ulcers with soft tissue gas and swelling and likely underlying acute osteomyelitis seen on x-ray of the foot White blood cell count 16.7 ESR greater than 130 and CRP 329 Patient urgently to the OR 03/[address] Mckenna 03/02: Taken to the OR 03/[address] Mckenna and is status post transmetatarsal amputation of the left foot. Podiatry still following/managing. Dressing changed today. Did have x-ray after surgery which noted the transmetatarsal amputation. Cultures, both tissue and blood, demonstrating staph aureus, he was presently on vancomycin. Infectious disease managing antibiotics, continue to follow cultures, also remains on Zosyn and clindamycin. Will need to follow with podiatry in the office within 3 to 5 days upon disch arge 03/03: Has had some delirium, Seroquel and melatonin added nightly. Remains on antibiotics, ID on board. Growing MRSA. Reconsult ID--has not been seen by the ID service since the . 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 Worse 03/05: give a liter of IVF. PLAN: Plan Chronic conditions: * Type 2 diabetes mellitus. continue 25 units twice daily of his long-acting. Glucose checks and sliding scale insulin. 03/03: Significantly improved with control of infection, was scaled back to 22 units twice daily and then to 20u BID * Coronary artery disease with a history of bypass. Has multiple statins, Byetta, Zetia, fenofibrate, gemfibrozil on his allergy list but unknown reaction. Resume BB, cont aspirin #DVT ppx: SCDs Charges/Coding Visit Charges Inpatient E&M: 33161 Subs Hosp L2
[2022-03-05] MEDS: Aspirin E.C. 81 MG Tablet PO (08:28)
[2022-03-05] MEDS: Metoprolol(XL)Succ 25 MG Tablet 12.5 MG PO ×2 (08:28→22:48)
[2022-03-05] MEDS: Glucerna Shake 120 ML LIQUID PO ×2 (08:32→16:19)
[2022-03-05] MEDS: Juven (unflavored) Packet 1 PACKET PO ×2 (08:33→16:13)
[2022-03-05] MEDS: Insulin Glargine-YFGN 100 UNIT/ML Pen 20 UNIT SC ×2 (12:33→22:45)
[2022-03-05 13:00] LABS: Bedside Glucose 238 mg/dL (74-106)
[2022-03-05 13:42] LABS: Vancomycin, Trough Level 19.6 ug/mL (5.0-15.0)
--- NOTE | 2022-03-05 14:21 | PCM.RX.CS ---
Consult Type of Consult: Follow-up Suspected Infection: Osteomyelitis Labs: Sodium 140 mmol/L (136-145) 03/05/22 05:32 Potassium 4.2 mmol/L (3.5-5.1) 03/05/22 05:32 Chloride 109 mmol/L (98-107) H 03/05/22 05:32 Carbon Dioxide 26.0 mmol/L (21.0-32.0) 03/05/22 05:32 Anion Gap 5 (5-15) 03/05/22 05:32 BUN 47 mg/dL (7-18) H 03/05/22 05:32 Creatinine 2.24 mg/dL (0.70-1.30) H 03/05/22 05:32 Est GFR (MDRD) Af Amer 36 mL/min (>60) L 03/05/22 05:32 Est GFR (MDRD) Non-Af 30 mL/min (>60) L 03/05/22 05:32 BUN/Creatinine Ratio 21.0 RATIO (10-20) H 03/05/22 05:32 Glucose 188 mg/dL (74-106) H 03/05/22 05:32 Vancomycin Trough 19.6 ug/mL (5.0-15.0) H 03/05/22 13:02 Microbiology: Microbiology 03/01/22 16:19 Tissue - Aerobic & Anaerobic Swabs Gram Stain - Final 03/01/22 16:19 Tissue - Aerobic & Anaerobic Swabs Wound Culture - Final Meth. resistant Staph. aureus 03/01/22 16:19 Tissue - Aerobic & Anaerobic Swabs Anaerobic Culture - Preliminary 03/01/22 16:59 Tissue - Left Foot Gram Stain - Final 03/01/22 16:59 Tissue - Left Foot Wound Culture - Final Meth. resistant Staph. aureus 03/01/22 16:59 Tissue - Left Foot Anaerobic Culture - Preliminary 03/01/22 16:24 Tissue - Left Foot Gram Stain - Final 03/01/22 16:24 Tissue - Left Foot Wound Culture - Final Meth. resistant Staph. aureus 03/01/22 16:24 Tissue - Left Foot Anaerobic Culture - Preliminary 03/01/22 10:30 Blood Culture (Wb) - Right Forearm Blood Culture - Final Staphylococcus aureus 03/01/22 11:05 Blood Culture (Wb) - Anticubital Left Bacteria Detection (PCR) - Final Staphylococcus aureus mecA Resistance Marker 03/01/22 11:05 Blood Culture (Wb) - Anticubital Left Blood Culture - Final Meth. resistant Staph. aureus 03/02/22 10:30 Nasal Secretion SARS-CoV-2 & FLU Antigen (Rapid) - Final 03/01/22 19:38 Mucosa - Nasopharyngeal Respiratory Panel (PCR) - Final Goal Trough: 15-20 mcg/mL Pharmacy Plan for Drug Dosing: VANCOMYCIN LEVEL RECEIVED Current Vancomycin Dose: 750mg Q24H Number of Doses Received: 750mg x3, 2000mg x1 Vancomycin Level: 19.6 Hours Since Last Dose: 23.25 Renal Function: sCr 2.24 (CrCl 27.55) Renal Function Trend: slightly worsened Vancomycin Plan/Comments: Continue Vancomycin 750mg Q24H; however, carefully watch sCr for further increase (baseline 1.8). If renal function continues to worsen, consider adjusting dose to 500mg Q24H. Also receiving Zosyn. Pending Level: Vancomycin trough @ 1300 03/07/22 Pharmacy Service will continue to monitor and adjust dosing as required. Labs to be done on [date and time ordered]: Vancomycin trough @ 1300 03/07/22
[2022-03-05] MEDS: 0.9% Normal Saline 1,000 ML 150 ML IV (16:07)
--- NOTE | 2022-03-05 16:14 | CASEMGMT ---
Patient[facility] choices were [facility]. SW sent referrals to both facilities via [facility]. SW does know that [facility] does not have any beds right now. Vanessa ISRAEL
[2022-03-05 18:36] LABS: Bedside Glucose 230 mg/dL (74-106)
[2022-03-05] MEDS: QUEtiapine 25 MG Tablet PO (22:48)
[2022-03-05] MEDS: Acetaminophen 325 MG Tablet 650 MG PO (22:48)
[2022-03-05] MEDS: MELATONIN 10 MG TABLET PO (22:48)
[2022-03-05 23:11] LABS: Bedside Glucose 172 mg/dL (74-106)
[2022-03-06] VITALS (9 sets, daily range): BP systolic 142–180; BP diastolic 44–77; PULSE 54–70; RESP 18–20; TEMP 36.4–37; O2SAT 95–98
[2022-03-06 07:00] LABS: Bedside Glucose 144 mg/dL (74-106)
--- NOTE | 2022-03-06 07:37 | CASEMGMT ---
[facility] accepted patient. However, [facility] does not know when they will have a bed available. Vanessa Tucker [employer]ICIAN JHONATAN
[2022-03-06 07:52] LABS: Anion Gap 4 (5-15); BUN 51 mg/dL (7-18); BUN/Creat Ratio 20.5 RATIO (10-20); Calcium,Total 8.9 mg/dL (8.5-10.1); Chloride 112 mmol/L (98-107); Creatinine, Serum 2.49 mg/dL (0.70-1.30); EST Glomerular Filtration Rate 27 mL/min (>60); Est Glom Filt Rate - Afr Amer 32 mL/min (>60); Estimated Creatinine Clearance 24.78 ml/min; Glucose 143 mg/dL (74-106); Potassium 4.2 mmol/L (3.5-5.1); Sodium Level 141 mmol/L (136-145)
--- NOTE | 2022-03-06 08:34 | PN.HOSP_ITS ---
Subjective Subjective Denies any complaint Objective Data Objective Data Vital Signs: Vital Signs Temp Pulse Resp BP Pulse Ox O2 Del Method 36.6 C 69 18 148/66 H 95 Room Air 03/06/22 08:19 03/06/22 08:19 03/06/22 08:19 03/06/22 08:19 03/06/22 08:19 03/06/22 08:26 Oxygen Delivery Method Room Air Weight: 94.3 kg Body Mass Index (BMI) 29.2 Intake & Output: Intake and Output for Last 24 Hours 03/04/22 03/05/22 03/06/22 23:59 23:59 23:59 Intake Total 1265 / 1265 1705 / 1705 50 / 50 Output Total 750 / 750 Balance 515 / 515 1705 / 1705 50 / 50 Lab / Micro Data Result Diagrams: 03/05/22 05:32 03/06/22 07:00 Labs: Laboratory Results - last 24 hr 03/05/22 12:29: POC Glucose 238 H 03/05/22 13:02: Vancomycin Trough 19.6 H 03/05/22 16:10: POC Glucose 230 H 03/05/22 22:44: POC Glucose 172 H 03/06/22 06:38: POC Glucose 144 H 03/06/22 07:00: Sodium 141, Potassium 4.2, Chloride 112 H, Carbon Dioxide 25.0, Anion Gap 4 L, BUN 51 H, Creatinine 2.49 H, Estim Creat Clear Calc 24.78, Est GFR (MDRD) Af Amer 32 L, Est GFR (MDRD) Non-Af 27 L, BUN/Creatinine Ratio 20.5 H , Glucose 143 H, Calcium 8.9 Micro: Microbiology 03/04/22 06:50 Blood Culture (Wb) - Anticubital Right Blood Culture - Preliminary No growth in 48 hours. 03/01/22 16:19 Tissue - Aerobic & Anaerobic Swabs Gram Stain - Final 03/01/22 16:19 Tissue - Aerobic & Anaerobic Swabs Wound Culture - Final Meth. resistant Staph. aureus 03/01/22 16:19 Tissue - Aerobic & Anaerobic Swabs Anaerobic Culture - Preliminary 03/01/22 16:59 Tissue - Left Foot Gram Stain - Final 03/01/22 16:59 Tissue - Left Foot Wound Culture - Final Meth. resistant Staph. aureus 03/01/22 16:59 Tissue - Left Foot Anaerobic Culture - Preliminary 03/01/22 16:24 Tissue - Left Foot Gram Stain - Final 03/01/22 16:24 Tissue - Left Foot Wound Culture - Final Meth. resistant Staph. aureus 03/01/22 16:24 Tissue - Left Foot Anaerobic Culture - Preliminary 03/01/22 10:30 Blood Culture (Wb) - Right Forearm Blood Culture - Final Staphylococcus aureus 03/01/22 11:05 Blood Culture (Wb) - Anticubital Left Bacteria Detection (PCR) - Final Staphylococcus aureus mecA Resistance Marker 03/01/22 11:05 Blood Culture (Wb) - Anticubital Left Blood Culture - Final Meth. resistant Staph. aureus 03/02/22 10:30 Nasal Secretion SARS-CoV-2 & FLU Antigen (Rapid) - Final 03/01/22 19:38 Mucosa - Nasopharyngeal Respiratory Panel (PCR) - Final Physical Exam Const alert and no apparent distress HEENT head/scalp atraumatic and moist oral mucous membranes Resp normal respiratory effort, no retractions, no use of accessory muscles and clear to auscultation bilaterally Cardio regular rate, regular rhythm, S1 normal heart sound and S2 normal heart sound Extremity Extremity Narrative: Left foot wrapped Assessment & Plan Assessment/Plan (1) Gangrene of toe of left foot: PLAN: Foot ulcers with soft tissue gas and swelling and likely underlying acute osteomyelitis seen on x-ray of the foot White blood cell count 16.7 ESR greater than 130 and CRP 329 Patient urgently to the OR 03/[address] Mckenna 03/02: Taken to the OR 03/[address] Mckenna and is status post transmetatars al amputation of the left foot. Podiatry still following/managing. Dressing changed today. Did have x-ray after surgery which noted the transmetatarsal amputation. Cultures, both tissue and blood, demonstrating staph aureus, he was presently on vancomycin. Infectious disease managing antibiotics, continue to follow cultures, also remains on Zosyn and clindamycin. Will need to follow with podiatry in the office within 3 to 5 days upon discharge 03/03: Has had some delirium, Seroquel and melatonin added nightly. Remains on antibiotics, ID on board. Growing MRSA. 03/06: ID changing antibiotics over to daptomycin (2) JAMI (acute kidney injury): PLAN: JAMI on CKD stage IV Overall improved but higher than his baseline of 1.8. Worse 03/05: give a liter of IVF. 03/06: Creatinine again worse. Antibiotics to be changed over from vancomycin to daptomycin. Will give additional IV fluids PLAN: Plan Chronic conditions: * Type 2 diabetes mellitus. continue 25 units twice daily of his long-acting. Glucose checks and sliding scale insulin. 03/03: Significantly improved with control of infection, was scaled back to 22 units twice daily and then to 20u BID * Coronary artery disease with a history of bypass. Has multiple statins, Byetta, Zetia, fenofibrate, gemfibrozil on his allergy list but unknown reaction. Resume BB, cont aspirin DVT ppx: SCDs Charges/Coding Visit Charges Inpatient E&M: 16763 Subs Hosp L2
--- NOTE | 2022-03-06 08:37 | PCM.RX.CS ---
Consult Pharmacy has been consulted to manage selected antiobiotic: Vancomycin Type of Consult: Follow-up Prior Doses of Antibiotics Received/Current Regimen: current dose is 750mg IV q24h with the most recent dose given at 13:35 yesterday Labs: Sodium 141 mmol/L (136-145) 03/06/22 07:00 Potassium 4.2 mmol/L (3.5-5.1) 03/06/22 07:00 Chloride 112 mmol/L (98-107) H 03/06/22 07:00 Carbon Dioxide 25.0 mmol/L (21.0-32.0) 03/06/22 07:00 Anion Gap 4 (5-15) L 03/06/22 07:00 BUN 51 mg/dL (7-18) H 03/06/22 07:00 Creatinine 2.49 mg/dL (0.70-1.30) H 03/06/22 07:00 Est GFR (MDRD) Af Amer 32 mL/min (>60) L 03/06/22 07:00 Est GFR (MDRD) Non-Af 27 mL/min (>60) L 03/06/22 07:00 BUN/Creatinine Ratio 20.5 RATIO (10-20) H 03/06/22 07:00 Glucose 143 mg/dL (74-106) H 03/06/22 07:00 Vancomycin Trough 19.6 ug/mL (5.0-15.0) H 03/05/22 13:02 Microbiology: Microbiology 03/04/22 06:50 Blood Culture (Wb) - Anticubital Right Blood Culture - Preliminary No growth in 48 hours. 03/01/22 16:19 Tissue - Aerobic & Anaerobic Swabs Gram Stain - Final 03/01/22 16:19 Tissue - Aerobic & Anaerobic Swabs Wound Culture - Final Meth. resistant Staph. aureus 03/01/22 16:19 Tissue - Aerobic & Anaerobic Swabs Anaerobic Culture - Preliminary 03/01/22 16:59 Tissue - Left Foot Gram Stain - Final 03/01/22 16:59 Tissue - Left Foot Wound Culture - Final Meth. resistant Staph. aureus 03/01/22 16:59 Tissue - Left Foot Anaerobic Culture - Preliminary 03/01/22 16:24 Tissue - Left Foot Gram Stain - Final 03/01/22 16:24 Tissue - Left Foot Wound Culture - Final Meth. resistant Staph. aureus 03/01/22 16:24 Tissue - Left Foot Anaerobic Culture - Preliminary 03/01/22 10:30 Blood Culture (Wb) - Right Forearm Blood Culture - Final Staphylococcus aureus 03/01/22 11:05 Blood Culture (Wb) - Anticubital Left Bacteria Detection (PCR) - Final Staphylococcus aureus mecA Resistance Marker 03/01/22 11:05 Blood Culture (Wb) - Anticubital Left Blood Culture - Final Meth. resistant Staph. aureus 03/02/22 10:30 Nasal Secretion SARS-CoV-2 & FLU Antigen (Rapid) - Final 03/01/22 19:38 Mucosa - Nasopharyngeal Respiratory Panel (PCR) - Final Weight used for dosin.3 kg Estimated Creatinine Clearance: 24.8ml/min Goal Trough: 15-20 mcg/mL Pharmacy Plan for Drug Dosing: The patient's SCr increased again today up to 2.49. Due to that and combined with the fact that yesterday's trough was at the upper end of goal range (19.6), will order a vanc random level to be drawn today 24 hours after yesterday's dose. Will discontinue the current dose for now to see what the random comes back as. Pharmacy Service will continue to monitor and adjust dosing as required. Follow-Up Labs: Trough Vancomycin - random Labs to be done on [date and time ordered]: 03/06/22 13:30
--- NOTE | 2022-03-06 10:37 | CASEMGMT ---
JAZMÍN called patient's Kass[facility] to update on d/c plan. There was no answer so JAZMÍN left a message requesting a return call. Vanessa ISRAEL
[2022-03-06] MEDS: Metoprolol(XL)Succ 25 MG Tablet 12.5 MG PO ×2 (10:47→20:58)
[2022-03-06] MEDS: Aspirin E.C. 81 MG Tablet PO (10:47)
[2022-03-06] MEDS: Glucerna Shake 120 ML LIQUID PO ×2 (10:50→21:06)
[2022-03-06] MEDS: Insulin Glargine-YFGN 100 UNIT/ML Pen 20 UNIT SC ×2 (10:52→21:01)
[2022-03-06] MEDS: Insulin Lispro 100 UNIT/ML INSULN.PEN SC ×3 (11:04→21:03)
[2022-03-06 11:31] LABS: Bedside Glucose 205 mg/dL (74-106)
--- NOTE | 2022-03-06 11:43 | WOUNDNOTE ---
wound photo: left foot
--- NOTE | 2022-03-06 11:43 | WOUNDNOTE ---
wound photo: left foot
--- NOTE | 2022-03-06 11:44 | WOUNDNOTE ---
wound photo: left foot
--- NOTE | 2022-03-06 13:15 | CASEMGMT ---
SW received a call from patient's . SW let her know [facility] accepted patient, but [facility] currently does not have any beds. Vanessa ISRAEL
--- NOTE | 2022-03-06 15:06 | PCM.RX.CS ---
Consult Pharmacy has been consulted to manage selected antiobiotic: Vancomycin Type of Consult: Follow-up Prior Doses of Antibiotics Received/Current Regimen: the patient had been on 750mg IV q24h before that was held today (last dose yesterday at 13:35) Labs: Sodium 141 mmol/L (136-145) 03/06/22 07:00 Potassium 4.2 mmol/L (3.5-5.1) 03/06/22 07:00 Chloride 112 mmol/L (98-107) H 03/06/22 07:00 Carbon Dioxide 25.0 mmol/L (21.0-32.0) 03/06/22 07:00 Anion Gap 4 (5-15) L 03/06/22 07:00 BUN 51 mg/dL (7-18) H 03/06/22 07:00 Creatinine 2.49 mg/dL (0.70-1.30) H 03/06/22 07:00 Est GFR (MDRD) Af Amer 32 mL/min (>60) L 03/06/22 07:00 Est GFR (MDRD) Non-Af 27 mL/min (>60) L 03/06/22 07:00 BUN/Creatinine Ratio 20.5 RATIO (10-20) H 03/06/22 07:00 Glucose 143 mg/dL (74-106) H 03/06/22 07:00 Vancomycin Trough 19.6 ug/mL (5.0-15.0) H 03/05/22 13:02 Random Vancomycin 21.0 ug/mL (0.0-15.0) H 03/06/22 13:40 Microbiology: Microbiology 03/04/22 06:50 Blood Culture (Wb) - Anticubital Right Blood Culture - Preliminary No growth in 48 hours. 03/01/22 16:19 Tissue - Aerobic & Anaerobic Swabs Gram Stain - Final 03/01/22 16:19 Tissue - Aerobic & Anaerobic Swabs Wound Culture - Final Meth. resistant Staph. aureus 03/01/22 16:19 Tissue - Aerobic & Anaerobic Swabs Anaerobic Culture - Preliminary 03/01/22 16:59 Tissue - Left Foot Gram Stain - Final 03/01/22 16:59 Tissue - Left Foot Wound Culture - Final Meth. resistant Staph. aureus 03/01/22 16:59 Tissue - Left Foot Anaerobic Culture - Preliminary 03/01/22 16:24 Tissue - Left Foot Gram Stain - Final 03/01/22 16:24 Tissue - Left Foot Wound Culture - Final Meth. resistant Staph. aureus 03/01/22 16:24 Tissue - Left Foot Anaerobic Culture - Preliminary 03/01/22 10:30 Blood Culture (Wb) - Right Forearm Blood Culture - Final Staphylococcus aureus 03/01/22 11:05 Blood Culture (Wb) - Anticubital Left Bacteria Detection (PCR) - Final Staphylococcus aureus mecA Resistance Marker 03/01/22 11:05 Blood Culture (Wb) - Anticubital Left Blood Culture - Final Meth. resistant Staph. aureus 03/02/22 10:30 Nasal Secretion SARS-CoV-2 & FLU Antigen (Rapid) - Final 03/01/22 19:38 Mucosa - Nasopharyngeal Respiratory Panel (PCR) - Final Weight used for dosin.3 kg Estimated Creatinine Clearance: 24.8ml/min Goal Trough: 15-20 mcg/mL Pharmacy Plan for Drug Dosing: The vanc random level drawn at 13:40 today (approx 24 hours after the previous dose) was 21.0. This is above goal range so will not give a dose today. Repeat a vanc random level tomorrow morning per [facility] protocol for dosing in patient's with acute decreases in renal function. Will then determine if the patient should be given a dose tomorrow and if the patient can be put back on scheduled dosing or not. The patient's SCr had risen to 2.49 today (was 2.05 on 03/03/22). Pharmacy Service will continue to monitor and adjust dosing as required. Follow-Up Labs: Trough Vancomycin - random Labs to be done on [date and time ordered]: 03/07/22 0600
--- NOTE | 2022-03-06 15:33 | PN.ID_ITS ---
ID ID: Route of nutrition/ use of supplements: [] Nutritional Intake: [] IV Site: [] Garvey Catheter: [] Patient is alert and responsive. MRSA bacteremia from a complicated left foot infection status post left transmetatarsal amputation. Of concern is his worsen ing renal function. Currently on parenteral vancomycin with adequate trough levels. No fevers. Denies any cardiopulmonary distress. Transthoracic echocardiogram report reviewed. Most recent blood cultures remain negative. On exam he is alert does not appear toxic vital signs reviewed no fever. Lungs are clear heart exam S1-S2 no murmurs appreciated abdomen soft nontender left foot postop dressings are in place. Assessment & Plan Assessment/Plan (1) Gangrene of toe of left foot: PLAN: MRSA bacteremia and elderly man with infected left foot status post transmetatarsal amputation. Given his worsening renal function, will change his parenteral antibiotic to daptomycin 6 mg/kg IV every 48 hours. We will arrange for a PICC line and long-term parenteral antibiotic therapy for 4 more weeks.
--- NOTE | 2022-03-06 15:46 | CASEMGMT ---
JAZMÍN received a message from [facility] via [employer] and they have changed their mind and declined patient. JAZMÍN sent [facility] a message via [employer] inquiring when they will have a bed. JAZMÍN also sent a copy of the script for IV antibiotics to [facility]. Vanessa ISRAEL
[2022-03-06 17:00] LABS: Bedside Glucose 215 mg/dL (74-106)
--- NOTE | 2022-03-06 18:16 | PN_ITS ---
Subjective Subjective Patient is seen bedside resting today with left foot elevated. He denies any pain today. States he feels pretty good. Patient remains confused. Denies any further complaints today. Nursing denies any acute overnight events. Objective Data Objective Data Vital Signs: Vital Signs Temp Pulse Resp BP Pulse Ox O2 Del Method 98.5 F 67 18 142/44 H 98 Room Air 03/06/22 16:40 03/06/22 16:40 03/06/22 16:40 03/06/22 16:40 03/06/22 16:40 03/06/22 16:40 Oxygen Delivery Method Room Air Weight: 94.3 kg Body Mass Index (BMI) 29.2 Intake & Output: Intake and Output for Last 24 Hours 03/04/22 03/05/22 03/06/22 23:59 23:59 23:59 Intake Total 1265 / 1265 1705 / 1705 290 / 290 Output Total 750 / 750 Balance 515 / 515 1705 / 1705 290 / 290 Lab / Micro Data Result Diagrams: 03/05/22 05:32 03/06/22 07:00 Labs: Laboratory Results - last 24 hr 03/05/22 16:10: POC Glucose 230 H 03/05/22 22:44: POC Glucose 172 H 03/06/22 06:38: POC Glucose 144 H 03/06/22 07:00: Sodium 141, Potassium 4.2, Chloride 112 H, Carbon Dioxide 25.0, Anion Gap 4 L, BUN 51 H, Creatinine 2.49 H, Estim Creat Clear Calc 24.78, Est GFR (MDRD) Af Amer 32 L, Est GFR (MDRD) Non-Af 27 L, BUN/Creatinine Ratio 20.5 H , Glucose 143 H, Calcium 8.9 03/06/22 11:02: POC Glucose 205 H 03/06/22 13:40: Random Vancomycin 21.0 H 03/06/22 16:14: POC Glucose 215 H Micro: Microbiology 03/01/22 11:05 Blood Culture (Wb) - Anticubital Left Bacteria Detection (PCR) - Final Staphylococcus aureus mecA Resistance Marker 03/01/22 11:05 Blood Culture (Wb) - Anticubital Left Blood Culture - Final Meth. resistant Staph. aureus 03/04/22 06:50 Blood Culture (Wb) - Anticubital Right Blood Culture - Preliminary No growth in 48 hours. 03/01/22 16:19 Tissue - Aerobic & Anaerobic Swabs Gram Stain - Final 03/01/22 16:19 Tissue - Aerobic & Anaerobic Swabs Wound Culture - Final Meth. resistant Staph. aureus 03/01/22 16:19 Tissue - Aerobic & Anaerobic Swabs Anaerobic Culture - Prel iminary 03/01/22 16:59 Tissue - Left Foot Gram Stain - Final 03/01/22 16:59 Tissue - Left Foot Wound Culture - Final Meth. resistant Staph. aureus 03/01/22 16:59 Tissue - Left Foot Anaerobic Culture - Preliminary 03/01/22 16:24 Tissue - Left Foot Gram Stain - Final 03/01/22 16:24 Tissue - Left Foot Wound Culture - Final Meth. resistant Staph. aureus 03/01/22 16:24 Tissue - Left Foot Anaerobic Culture - Preliminary 03/01/22 10:30 Blood Culture (Wb) - Right Forearm Blood Culture - Final Staphylococcus aureus 03/02/22 10:30 Nasal Secretion SARS-CoV-2 & FLU Antigen (Rapid) - Final 03/01/22 19:38 Mucosa - Nasopharyngeal Respiratory Panel (PCR) - Final Physical Exam Const alert, oriented x3, no apparent distress and well nourished Constitutional Narrative: Patient appears nontoxic, however is confused. General Appearance: cooperative HEENT normocephalic Eyes General Eye: normal appearance of both eyes Neck General: normal visual inspection Lymph Lymphatic: no lymphadenopathy noted and no lymphedema noted Resp normal respiratory effort Cardio regular rate and regular rhythm Extremity no joint enlargement and no calf tenderness Extremity Narrative: Left lower extremity: Absent DP and PT pulses to palpation. On Doppler PT is biphasic and DP is monophasic. Transmetatarsal amputation noted to the left lower extremity with sutures intact. Right lower extremity: Transmetatarsal amputation site noted. No evidence of wounds. No signs of infection. Skin no jaundice General Skin Exam: erythema Wound Narrative: Transmetatarsal amputation noted to the left lower extremity with sutures intact. There was mild hematogenous strikethrough to the dressings postoperatively. Site appears stable with no necrosis along the suture line. No prominent pressure points are noted. Cellulitis about the dorsal foot is subsiding/improving. No purulent drainage noted, no malodor, no visible abscess or palpable fluctuance/bogginess is noted. Amputation site is healthy appearing. Neuro oriented x3 and moves all extremities Neuro Narrative: Diminished light touch and protective sensation to the foot consistent with peripheral polyneuropathy Psych affect normal Appearance: grossly normal and appropriate Assessment & Plan Assessment/Plan (1) Gas gangrene of foot: (2) Gangrene of toe of left foot: (3) Cellulitis of left lower limb: (4) Non-pressure chronic ulcer of other part of left foot with necrosis of bone: (5) Type 2 diabetes mellitus with foot ulcer: (6) Type 2 diabetes mellitus with diabetic polyneuropathy: (7) Diabetic foot infection: (8) Other specified peripheral vascular diseases: (9) History of transmetatarsal amputation of left foot: (10) History of transmetatarsal amputation of right foot: (11) Osteomyelitis, unspecified: PLAN: Plan I personally saw and evaluated the patient. S/p transmetatarsal amputation left foot. POV #3, DOS 03/01/2022, POD #5 Vascular: Nonpalpable DP and PT pulses. He was noted to have monophasic DP flow and biphasic PT flow. Presurgical labs: 03/01/2022 prior to surgical intervention WBC 16.7, ESR greater than 130, CRP markedly elevated at 329, lactate normal, albumin low 2.4, creatinine 2.51, GFR 26, BUN 51, glucose 272, alkaline phosphatase 131. Presurgical imaging: Radiographs were performed in the ED 03/01/2022 and were positive for subcutaneous air/gas in the second digit second, overlying the second metatarsal head, base of the third digit and overlying the head of the third metatarsal, diffuse forefoot swelling, and likely underlying acute ost eomyelitis. Postsurgical: Infection: Transmetatarsal amputation noted to the left foot with sutures intact. Amputation stump appears healthy and viable. No necrosis along the suture line. No prominent pressure points are noted. Cellulitis about the dorsal foot is subsiding/improving. There is some localized rubor about the incision site/dorsal foot secondary to patient walking on the left lower extremity. No purulent drainage noted, no malodor, no visible abscess or palpable fluctuance/bogginess is noted. At time of surgery prior to closure vancomycin powder was placed throughout the amputation stump. WBC currently at 9.9 Dressings changed today consisting of Betadine soaked Adaptic, 4 x 4 gauze, ABD x2, Kerlix, 4 inch Jalil and 6 inch Jalil rolled onto the foot. Nursing to assist in daily dressing changes while in house consisting of the above. Postsurgical imaging: Noted transmetatarsal amputation of the left foot with soft tissues unremarkable. Weightbearing: He is to remain nonweightbearing to the left lower extremity, full weightbearing to right lower extremity may utilize left heel to aid in standing and for transitions otherwise nonweightbearing. Patient was reminded of his strict nonweightbearing status again today. Compliance remains di fficult. Edema: He is to elevate the left lower extremity at all times of rest. Surgical cultures currently demonstrating staph aureus with mecA resistance marker detected. Patient currently on IV daptomycin/Zosyn, and clindamycin. Blood cultures demonstrate no growth. Medicine team will continue to follow for medical management, this is greatly appreciated. Infectious disease following for management of IV antibiotics, their input is greatly appreciated. Due to patient's inability to remain compliant with nonweightbearing status I am recommending dispensing a CAM boot to be applied to the left lower extremity to reduce forefoot pressure to the amputation site. Podiatry will continue to follow postoperatively while in house. Please do not hesitate to call with any questions or concerns. Upon patient discharge he is to follow-up with me in the office within 3 to 5 days. Rayshawn Mckenna Jr. D.P.M. [facility] [phone] Note: [employer] speech recognition veterinary technology instructor software was used to create portions of this document. Sound-alike and misspelled words, as well as other veterinary technology instructor errors may be contained in the documentation.
[2022-03-06] MEDS: 0.9% Normal Saline 1,000 ML 150 ML IV (18:29)
--- NOTE | 2022-03-06 20:57 | NURSING ---
pt is agitated and complains of discomfort will monitor.
[2022-03-06] MEDS: Acetaminophen 325 MG Tablet 650 MG PO (20:58)
[2022-03-06] MEDS: MELATONIN 10 MG TABLET PO (20:58)
[2022-03-06] MEDS: QUEtiapine 25 MG Tablet PO (20:58)
[2022-03-06] MEDS: oxyCODONE 5 MG Tablet PO (20:59)
--- NOTE | 2022-03-06 21:10 | NURSING ---
pt noted with increased agitation this evening. pt is not easily redirected. pt repositioned and purewick remains intact. pt noted to repetitively swear. pt states, How do I put this Stephanie schofield (headof) bed down bed alarm on. call light within reach. IVF continues to infuse via pump at this time. will monitor.
[2022-03-06 22:15] LABS: Bedside Glucose 175 mg/dL (74-106)
[2022-03-07] VITALS (8 sets, daily range): BP systolic 146–177; BP diastolic 61–115; PULSE 45–74; RESP 16–18; TEMP 35.7–36.7; O2SAT 95–99
[2022-03-07 07:16] LABS: Bedside Glucose 120 mg/dL (74-106)
[2022-03-07 07:55] LABS: Anion Gap 7 (5-15); BUN 50 mg/dL (7-18); BUN/Creat Ratio 18.8 RATIO (10-20); Calcium,Total 8.8 mg/dL (8.5-10.1); Chloride 112 mmol/L (98-107); Creatinine, Serum 2.66 mg/dL (0.70-1.30); EST Glomerular Filtration Rate 25 mL/min (>60); Est Glom Filt Rate - Afr Amer 30 mL/min (>60); Glucose 131 mg/dL (74-106); Sodium Level 144 mmol/L (136-145)
--- NOTE | 2022-03-07 08:32 | PN.HOSP_ITS ---
Subjective Subjective Denies complaints. Objective Data Objective Data Vital Signs: Vital Signs Temp Pulse Resp BP Pulse Ox O2 Del Method 36.4 C L 45 L 18 164/63 H 98 Room Air 03/07/22 04:45 03/07/22 04:45 03/07/22 04:45 03/07/22 04:45 03/07/22 04:45 03/07/22 04:45 Oxygen Delivery Method Room Air Weight: 94.5 kg Body Mass Index (BMI) 29.2 Intake & Output: Intake and Output for Last 24 Hours 03/05/22 03/06/22 03/07/22 23:59 23:59 23:59 Intake Total 1705 / 1705 591 / 591 1000 / 1000 Balance 1705 / 1705 591 / 591 1000 / 1000 Lab / Micro Data Result Diagrams: 03/05/22 05:32 03/07/22 05:50 Labs: Laboratory Results - last 24 hr 03/06/22 11:02: POC Glucose 205 H 03/06/22 13:40: Random Vancomycin 21.0 H 03/06/22 16:14: POC Glucose 215 H 03/06/22 20:55: POC Glucose 175 H 03/07/22 05:50: Sodium 144, Potassium 4.0, Chloride 112 H, Carbon Dioxide 25.0, Anion Gap 7, BUN 50 H, Creatinine 2.66 H, Estim Creat Clear Calc 23.20, Est GFR (MDRD) Af Amer 30 L, Est GFR (MDRD) Non-Af 25 L, BUN/Creatinine Ratio 18.8, Glucose 131 H, Calcium 8.8 03/07/22 06:56: POC Glucose 120 H Micro: Microbiology 03/01/22 11:05 Blood Culture (Wb) - Anticubital Left Bacteria Detection (PCR) - Final Staphylococcus aureus mecA Resistance Marker 03/01/22 11:05 Blood Culture (Wb) - Anticubital Left Blood Culture - Final Meth. resistant Staph. aureus 03/04/22 06:50 Blood Culture (Wb) - Anticubital Right Blood Culture - Preliminary No growth in 48 hours. 03/01/22 16:19 Tissue - Aerobic & Anaerobic Swabs Gram Stain - Final 03/01/22 16:19 Tissue - Aerobic & Anaerobic Swabs Wound Culture - Final Meth. resistant Staph. aureus 03/01/22 16:19 Tissue - Aerobic & Anaerobic Swabs Anaerobic Culture - Preliminary 03/01/22 16:59 Tissue - Left Foot Gram Stain - Final 03/01/22 16:59 Tissue - Left Foot Wound Culture - Final Meth. resistant Staph. aureus 03/01/22 16:59 Tissue - Left Foot Anaerobic Culture - Preliminary 03/01/22 16:24 Tissue - Left Foot Gram Stain - Final 03/01/22 16:24 Tissue - Left Foot Wound Culture - Final Meth. resistant Staph. aureus 03/01/22 16:24 Tissue - Left Foot Anaerobic Culture - Preliminary 03/01/22 10:30 Blood Culture (Wb) - Right Forearm Blood Culture - Final Staphylococcus aureus 03/02/22 10:30 Nasal Secretion SARS-CoV-2 & FLU Antigen (Rapid) - Final 03/01/22 19:38 Mucosa - Nasopharyngeal Respiratory Panel (PCR) - Final Physical Exam Const alert and no apparent distress HEENT head/scalp atraumatic and moist oral mucous membranes Resp normal respiratory effort, no retractions and no use of accessory muscles Cardio regular rate, regular rhythm, S1 normal heart sound and S2 normal heart sound GI normal to inspection, nondistended, normoactive bowel sounds Assessment & Plan Assessment/Plan (1) Gangrene of toe of left foot: PLAN: Foot ulcers with soft tissue gas and swelling and likely underlying acute osteomyelitis seen on x-ray of the foot White blood cell count 16.7 ESR greater than 130 and CRP 329 Patient urgently to the OR 03/[address] Mckenna 03/02: Taken to the OR 03/[address] Mckenna and is status post transmetatarsal amputation of the left foot. Podiatry still following/managing. Dressing changed today. Did have x-ray after surgery which noted the transmetatarsal amputation. Cultures, both tissue and blood, demonstrating staph aureus, he was presently on vancomycin. Infectious disease managing antibiotics, continue to follow cultures, also remains on Zosyn and clindamycin. Will need to follow with podiatry in the office within 3 to 5 days upon discharge 03/03: Has had some delirium, Seroquel and melatonin added nightly. Remains on antibiotics, ID on board. Growing MRSA. 03/06: ID changing antibiotics over to daptomycin (2) JAMI (acute kidney injury): PLAN: JAMI on CKD stage IV Overall improved but higher than his baseline of 1.8. Worse 03/05: give a liter of IVF. 03/06: Creatinine again worse. Antibiotics to be changed over from vancomycin to daptomycin. Will give additional IV fluids 03/07: continues to worsen. Will give addn IVF. Check urine studies. Renal US. PLAN: Plan Chronic conditions: * Type 2 diabetes mellitus. continue 25 units twice daily of his long-acting. Glucose checks and sliding scale insulin. 03/03: Significantly improved with control of infection, was scaled back to 22 units twice daily and then to 20u BID * Coronary artery disease with a history of bypass. Has multiple statins, Byetta, Zetia, fenofibrate, gemfibrozil on his allergy list but unknown reaction. Resume BB, cont aspirin DVT ppx: SCDs Charges/Coding Visit Charges Inpatient E&M: 20549 Subs Hosp L2
[2022-03-07] MEDS: 0.9% Normal Saline 1,000 ML 150 ML IV (08:49)
[2022-03-07] MEDS: Aspirin E.C. 81 MG Tablet PO (08:52)
[2022-03-07] MEDS: Metoprolol(XL)Succ 25 MG Tablet 12.5 MG PO ×2 (08:52→20:49)
[2022-03-07] MEDS: Glucerna Shake 120 ML LIQUID PO (08:56)
[2022-03-07] MEDS: Juven (unflavored) Packet 1 PACKET PO (08:56)
[2022-03-07] MEDS: Insulin Glargine-YFGN 100 UNIT/ML Pen 20 UNIT SC ×2 (09:01→20:50)
[2022-03-07] MEDS: Insulin Lispro 100 UNIT/ML INSULN.PEN SC ×2 (11:27→16:27)
--- NOTE | 2022-03-07 11:45 | CASEMGMT ---
JAZMÍN spoke with Charleen at [facility] and they will have a bed for patient tomorrow. Charleen will start the process to obtain insurance authorization. JAZMÍN called patient's and let her know the change in d/c plans. She was in agreement with the plan. Plan: [facility] pending insurance approval. Vanessa ISRAEL
[2022-03-07 11:55] LABS: Bedside Glucose 175 mg/dL (74-106)
[2022-03-07 12:42] LABS: Bacteria 0 SEEN /hpf (None Seen); Mucous, Urine 0 SEEN /hpf (<or=2+); Squamous Epithelial Cells - UA 0 SEEN /hpf (0-5)
[2022-03-07 13:00] LABS: Urine Sodium 71 mmol/L (Not Establ.)
[2022-03-07 13:10] LABS: Color, Urine Red (Yellow); Glucose, Dipstick Normal (Normal); Ketone-Dipstick 5 mg/dl (Negative); Leukocyte Esterase-Dipstick 25 /ul (Negative); Nitrite-Dipstick Negative (Negative); Occult Blood-Urine 250 /ul (Negative); Protein-Dipstick 500 mg/dl (Negative); Specific Gravity, Urine 1.015 (1.002-1.030); Urine Bilirubin Dipstick Negative (Negative); Urine Clarity Turbid (Clear); Urine Urobilinogen Normal (Normal)
[2022-03-07 13:29] LABS: Red Blood Cells-Urine > 100 SEEN /hpf (0-5)
[2022-03-07 13:32] LABS: White Blood Cells 5-10 SEEN /hpf (0-5)
[2022-03-07 16:50] LABS: Bedside Glucose 203 mg/dL (74-106)
[2022-03-07] MEDS: MELATONIN 10 MG TABLET PO (20:49)
[2022-03-07] MEDS: QUEtiapine 25 MG Tablet PO (20:49)
[2022-03-07] MEDS: Acetaminophen 325 MG Tablet 650 MG PO (20:50)
[2022-03-07 21:55] LABS: Bedside Glucose 148 mg/dL (74-106)
[2022-03-08] VITALS (7 sets, daily range): BP systolic 132–182; BP diastolic 49–99; PULSE 54–68; RESP 18–20; TEMP 36.1–36.8; O2SAT 98–100
[2022-03-08 06:46] LABS: Bedside Glucose 119 mg/dL (74-106)
[2022-03-08 07:10] LABS: Anion Gap 6 (5-15); BUN 52 mg/dL (7-18); BUN/Creat Ratio 19.8 RATIO (10-20); Calcium,Total 8.7 mg/dL (8.5-10.1); Chloride 114 mmol/L (98-107); Creatinine, Serum 2.63 mg/dL (0.70-1.30); EST Glomerular Filtration Rate 25 mL/min (>60); Est Glom Filt Rate - Afr Amer 30 mL/min (>60); Estimated Creatinine Clearance 23.46 ml/min; Glucose 124 mg/dL (74-106); Sodium Level 144 mmol/L (136-145)
--- NOTE | 2022-03-08 08:53 | PCM.PN.HOSP ---
Subjective Subjective No events. Urinary frequency. Noted irritation on glans of the penis. Calmoseptine ordered. Objective Data Objective Data Vital Signs: Vital Signs Temp Pulse Resp BP Pulse Ox O2 Del Method 36.2 C L 68 20 H 182/72 H 99 Room Air 03/08/22 08:52 03/08/22 08:52 03/08/22 08:52 03/08/22 08:52 03/08/22 08:52 03/08/22 08:52 Oxygen Delivery Method Room Air Weight: 94.7 kg Body Mass Index (BMI) 29.2 Intake & Output: Intake and Output for Last 24 Hours 03/06/22 03/07/22 03/08/22 23:59 23:59 23:59 Intake Total 591 / 591 2480 / 2480 120 / 120 Output Total 300 / 300 Balance 591 / 591 2180 / 2180 120 / 120 Lab / Micro Data Result Diagrams: 03/05/22 05:32 03/08/22 06:00 Labs: Laboratory Results - last 24 hr 03/07/22 11:23: POC Glucose 175 H 03/07/22 12:20: Urine Creatinine 63.10 03/07/22 12:20: Urine Color Red, Urine Clarity Turbid, Urine pH 5.0, Ur Specific [place] 1.015, Urine Protein 500 H, Urine Glucose (UA) Normal, Urine Ketones 5 H, Urine Occult Blood 250 H, Urine Nitrite Negative, Urine Bilirubin Negative, Urine Urobilinogen Normal, Ur Leukocyte Esterase 25 H, Urine RBC > 100 SEEN, Urine WBC 5-10 SEEN, Ur Squamous Epith Cells 0 SEEN, Urine Bacteria 0 SEEN, Urine Mucus 0 SEEN 03/07/22 12:20: Ur Random Sodium 71 03/07/22 16:26: POC Glucose 203 H 03/07/22 20:47: POC Glucose 148 H 03/08/22 06:00: Sodium 144, Potassium 4.0, Chloride 114 H, Carbon Dioxide 24.0, Anion Gap 6, BUN 52 H, Creatinine 2.63 H, Estim Creat Clear Calc 23.46, Est GFR (MDRD) Af Amer 30 L, Est GFR (MDRD) Non-Af 25 L, BUN/Creatinine Ratio 19.8, Glucose 124 H, Calcium 8.7 03/08/22 06:24: POC Glucose 119 H Micro: Microbiology 03/05/22 16:45 Urine, Clean Catch Urine Culture - Final Culture exhibits no growth. 03/01/22 16:24 Tissue - Left Foot Gram Stain - Final 03/01/22 16:24 Tissue - Left Foot Wound Culture - Final Meth. resistant Staph. aureus 03/01/22 16:24 Tissue - Left Foot Anaerobic Culture - Final Anaerobic cocci 03/01/22 16:59 Tissue - Left Foot Gram Stain - Final 03/01/22 16:59 Tissue - Left Foot Wound Culture - Final Meth. resistant Staph. aureus 03/01/22 16:59 Tissue - Left Foot Anaerobic Culture - Final Anaerobic cocci 03/01/22 16:19 Tissue - Aerobic & Anaerobic Swabs Gram Stain - Final 03/01/22 16:19 Tissue - Aerobic & Anaerobic Swabs Wound Culture - Final Meth. resistant Staph. aureus 03/01/22 16:19 Tissue - Aerobic & Anaerobic Swabs Anaerobic Culture - Final Anaerobic cocci 03/01/22 11:05 Blood Culture (Wb) - Anticubital Left Bacteria Detection (PCR) - Final Staphylococcus aureus mecA Resistance Marker 03/01/22 11:05 Blood Culture (Wb) - Anticubital Left Blood Culture - Final Meth. resistant Staph. aureus 03/04/22 06:50 Blood Culture (Wb) - Anticubital Right Blood Culture - Preliminary No growth in 48 hours. 03/01/22 10:30 Blood Culture (Wb) - Right Forearm Blood Culture - Final Staphylococcus aureus 03/02/22 10:30 Nasal Secretion SARS-CoV-2 & FLU Antigen (Rapid) - Final 03/01/22 19:38 Mucosa - Nasopharyngeal Respiratory Panel (PCR) - Final Physical Exam Const no apparent distress Resp normal respiratory effort, no retractions, no use of accessory muscles and clear to auscultation bilaterally Cardio regular rate, regular rhythm, S1 normal heart sound and S2 normal heart sound GI normal to inspection, nondistended, normoactive bowel sounds, soft to palpation, non-tender and non-distended Assessment & Plan Assessment/Plan (1) Gangrene of toe of left foot: PLAN: Foot ulcers with soft tissue gas and swelling and likely underlying acute osteomyelitis seen on x-ray of the foot White blood cell count 16.7 ESR greater than 130 and CRP 329 Patient urgently to the OR 03/[address] Mckenna 03/02: Taken to the OR 03/[address] Mckenna and is status post transmetatarsal amputation of the left foot. Podiatry still following/managing. Dressing changed today. Did have x-ray after surgery which noted the transmetatarsal amputation. Cultures, both tissue and blood, demonstrating staph aureus, he was presently on vancomycin. Infectious disease managing antibiotics, continue to follow cultures, also remains on Zosyn and clindamycin. Will need to follow with podiatry in the office within 3 to 5 days upon discharge 03/03: Has had some delirium, Seroquel and melatonin added nightly. Remains on antibiotics, ID on board. Growing MRSA. 03/06: ID changing antibiotics over to daptomycin q48 for 4 more wees. 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 Worse 03/05: give a liter of IVF. 03/06: Creatinine again worse. Antibiotics to be changed over from vancomycin to daptomycin. Will give additional IV fluids 03/07: continues to worsen. Will give addn IVF. Check urine studies. Renal US. 03/08: creatinine stabilized at 1.63 JAMI may have been due to vancomycin, which has been discontinued. (3) Essential hypertension: PLAN: uncontrolled on metoprolol succinate allergy to amlodipine, ACEi add hydralazine avoid diuretics for time being given JAMI PLAN: Plan Chronic conditions: Type 2 diabetes mellitus. continue 25 units twice daily of his long-acting. Glucose checks and sliding scale insulin. 03/03: Significantly improved with control of infection, was scaled back to 22 units twice daily and then to 20u BID Coronary artery disease with a history of bypass. Has multiple statins, Byetta, Zetia, fenofibrate, gemfibrozil on his allergy list but unknown reaction. Resume BB, cont aspirin to SNF.
[2022-03-08] MEDS: Aspirin E.C. 81 MG Tablet PO (08:56)
[2022-03-08] MEDS: Metoprolol(XL)Succ 25 MG Tablet 12.5 MG PO (08:56)
[2022-03-08] MEDS: Juven (unflavored) Packet 1 PACKET PO (08:56)
--- NOTE | 2022-03-08 10:04 | NURSING ---
Pt has reddened tip of penis and continues to hold urinal at top of penis continually d/t urgency and frequency with voiding. Voiced to pt that this nurse will try to get sheyla cream ordered from doctor. Pt denies burning with urination. Urine is light pink/cheng color. will continue to monitor
[2022-03-08] MEDS: Menthol/Lanolin/Calamine/Znox 113 GM Tube 1 APPLIC TOPICAL ×2 (10:33→14:42)
--- NOTE | 2022-03-08 11:10 | CASEMGMT ---
JAZMÍN received notification that patient was approved for [facility]. JAZMÍN notified physician and RN. JAZMÍN completed 7000 in [facility] system. Vanessa Tucker MSW [facility]ONATAN
[2022-03-08] MEDS: Insulin Lispro 100 UNIT/ML INSULN.PEN SC (11:19)
[2022-03-08] MEDS: Insulin Glargine-YFGN 100 UNIT/ML Pen 20 UNIT SC (11:20)
[2022-03-08 11:46] LABS: Bedside Glucose 156 mg/dL (74-106)
--- NOTE | 2022-03-08 12:20 | TREXTCAR_ITS ---
Diet Diet Order/Speech Therapy: 03/02/22 08:38 Diet: Carbohydrate Controlled Is pt able to select menu?: No Routine Orders/Code Status Routine Lab Work: CBC and BMP Code Status: Full Code Wound(s) LT 2nd toe: Wound Type: Amputation left foot: Wound Type: surgical incision s/p transmetatarsal amputation Dressing Change: betadine and Adaptic Therapies Weight Bearing: Non weight bearing Extremity Affected:: Left Lower Physical Therapy: Eval and Treat Occupational Therapy: Eval and Treat Problem/Diagnosis (1) Gangrene of toe of left foot: Status: Acute Code(s): I96 - Gangrene, not elsewhere classified Plan: Foot ulcers with soft tissue gas and swelling and likely underlying acute osteomyelitis seen on x-ray of the foot White blood cell count 16.7 ESR greater than 130 and CRP 329 Patient urgently to the OR 03/[address] Mckenna 03/02: Taken to the OR 03/[address] Mckenna and is status post transmetatarsal amputation of the left foot. Podiatry still following/managing. Dressing changed today. Did have x-ray after surgery which noted the transmetatarsal amputation. Cultures, both tissue and blood, demonstrating staph aureus, he was presently on vancomycin. Infectious disease managing antibiotics, continue to follow cultures, also remains on Zosyn and clindamycin. Will need to follow with podiatry in the office within 3 to 5 days upon discharge 03/03: Has had some delirium, Seroquel and melatonin added nightly. Remains on antibiotics, ID on board. Growing MRSA. 03/06: ID changing antibiotics over to daptomycin q48 for 4 more weeks. 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 Worse 03/05: give a liter of IVF. 03/06: Creatinine again worse. Antibiotics to be changed over from vancomycin to daptomycin. Will give additional IV fluids 03/07: continues to worsen. Will give addn IVF. Check urine studies. Renal US. 03/08: creatinine stabilized at 1.63 JAMI may have been due to vancomycin, which has been discontinued. (3) Essential hypertension: Status: Chronic Code(s): I10 - Essential (primary) hypertension Plan: uncontrolled on metoprolol succinate allergy to amlodipine, ACEi add hydralazine avoid diuretics for time being given JAMI Plan Chronic conditions: * Type 2 diabetes mellitus. continue 25 units twice daily of his long-acting. Glucose checks and sliding scale insulin. 03/03: Significantly improved with control of infection, was scaled back to 22 units twice daily and then to 20u BID * Coronary artery disease with a history of bypass. Has multiple statins, Byetta, Zetia, fenofibrate, gemfibrozil on his allergy list but unknown reaction. Resume BB, cont aspirin to SNF. Allergies/Procedures Done in Hospital Allergies glyburide Allergy (Intermediate, Verified 03/01/22 12:18) Unknown Iodinated Contrast Media [CONTRASTS] Allergy (Verified 03/01/22 12:18) Rash amlodipine [From Norvasc] Adverse Reaction (Unknown, Verified 03/01/22 12:18) Unknown atorvastatin [From Lipitor] Adverse Reaction (Unknown, Verified 03/01/22 12:18) Unknown cerivastatin [From Baycol] Adverse Reaction (Unknown, Verified 03/01/22 12:18) Unknown enalapril Adverse Reaction (Unknown, Verified 03/01/22 12:18) Unknown exenatide [From Byetta] Adverse Reaction (Unknown, Verified 03/01/22 12:18) Unknown ezetimibe [From Zetia] Adverse Reaction (Unknown, Verified 03/01/22 12:18) Unknown fenofibrate [From Tricor] Adverse Reaction (Unknown, Verified 03/01/22 12:18) Unknown gemfibrozil Adverse Reaction (Unknown, Verified 03/01/22 12:18) Unknown glipizide [From Glucotrol] Adverse Reaction (Unknown, Verified 03/01/22 12:18) Unknown labetalol Adverse Reaction (Unknown, Verified 03/01/22 12:18) Unknown lovastatin [From Mevacor] Adverse Reaction (Unknown, Verified 03/01/22 12:18) Unknown metformin [From Glucophage] Adverse Reaction (Unknown, Verified 03/01/22 12:18) Unknown niacin [From Niaspan Extended-Release] Adverse Reaction (Unknown, Verified 03/01/22 12:18) Unknown nifedipine [From Adalat] Adverse Reaction (Unknown, Verified 03/01/22 12:18) Unknown quinapril [From Accupril] Adverse Reaction (Unknown, Verified 03/01/22 12:18) Unknown repaglinide [From Prandin] Adverse Reaction (Unknown, Verified 03/01/22 12:18) Unknown rosuvastatin [From Crestor] Adverse Reaction (Unknown, Verified 03/01/22 12:18) Unknown simvastatin [From Zocor] Adverse Reaction (Unknown, Verified 03/01/22 12:18) Unknown Type of Care/Length of Stay Estimated LOS: Convalescent Care Less Than 30 days Type of Care Needed: Skilled Rehab Potential: Fair Prognosis: Fair Additional Orders/Day of Discharge Day of Discharge: 03/08/22 Dietary and Speech Recommendations Dietitian Recommendations/Changes: Carbohydrate Controlled diet Silviano BID & Glucerna 4x/d 120mL w/ medpass to promote wound healing. Will monitor renal function and adjust ONS/diet as indicated. Discharge Plan Admission Admit Date/Time: 03/01/22 12:42 Primary Reason for Your Visit: Gangrene of toe of left foot. Attending Provider: Kevin Webber Primary Care Provider: Nawaf Villaseñor Consulting Providers: Roya Garza ; Anand Lee Discharge Orders/Prescriptions Prescriptions: New acetaminophen [Tylenol] 325 mg Tablet 650 mg PO Q6H PRN PRN (Reason: Pain 1-10 Or Fever >100.7) Qty: 0 0RF sodium chloride 0.9 % (flush) [BD PosiFlush Normal Saline 0.9] Syringe 10 - 40 ml IV UD PRN (Reason: Saline Flush) Qty: 0 0RF daptomycin 500 mg Recon Soln 550 mg IV Q48 Qty: 0 0RF insulin glargine-yfgn 100 unit/mL (3 mL) Insulin Pen 20 unit subcut BID Qty: 0 0RF quetiapine 25 mg Tablet 25 mg PO QHS Qty: 0 0RF hydralazine 50 mg Tablet 50 mg PO TID Qty: 0 0RF insulin lispro [Humalog KwikPen Insulin] 100 unit/mL Insulin Pen See Protocol subcut ACHS Qty: 0 0RF Protocol: 4. Sliding Scale Insulin High-Med Dosing Condition: 150-199 mg/dl = 2 units Condition: 200-259 mg/dl = 4 units Condition: 260-324 mg/dl = 6 units Condition: 325-374 mg/dl = 8 units Condition: 375-409 mg/dl = 10 units Condition: 410-449 mg/dl = 11 units Condition: Greater than 449 call physician Protocol Text: - Use for Total Daily Dose of Insulin 56-80 units - Patient who are insulin resistant or septic HIGH MEDIUM DOSING ALGORITHM Glucerna 1.2 Jaylen 0.06-1.2 gram-kcal/mL Liquid 120 ml PO 4X/DAY Qty: 0 0RF menthol-zinc oxide [Calmoseptine] 0.44-20.6 % Ointment 1 applic topical 4X/DAY Qty: 0 0RF Protocol: *Topical Application Instructions APPLICATION INSTRUCTIONS: apply to affected areas melatonin 10 mg Tablet, Sublingual 10 mg PO QHS Qty: 0 0RF Silviano (with collagen) 7-7-1.5 gram Powder In Packet 1 packet PO BIDCM Qty: 0 0RF Continued aspirin [Adult Aspirin Regimen] 81 mg tablet,delayed release (DR/EC) 81 mg PO DAILY Label Comments: FOLLOW DR SANCHEZ INSTRUCTIONS ABOUT STOPPING calcium carb-D3-mag [id number] [phone] mj-[id number]-ok-mg tablet 1 tab PO DAILY Rx Instructions: administer with a meal omega-3 fatty acids [Fish Oil Concentrate] 1,000 mg capsule 1,000 mg PO BID (DME) pen needle, diabetic [BD Ultra-Fine Sammie Pen Needle] 32 gauge x 5/32 needle See Rx Instructions .ROUTE .MEDSUPPLY Qty: 150 6RF Rx Instructions: 5 times daily (DME) Accu-Chek Guide test strips Strip See Rx Instructions .Route Qty: 100 6RF Rx Instructions: three times daily [id number]-lycopen-lutein 1 EACH tablet 1 tab PO DAILY metoprolol succinate 25 mg tablet extended release 24 hr 12.5 mg PO BID doxazosin 2 mg tablet 2 mg PO BID Qty: 180 3RF Discontinued coenzyme Q10 [Co Q-10] 100 mg capsule 100 mg PO DAILY losartan 50 mg tablet 50 mg PO DAILY insulin glargine [Lantus Solostar U-100 Insulin] 100 unit/mL (3 mL) insulin pen 25 unit subcut BID Qty: 15 6RF insulin aspart U-100 [Novolog Flexpen U-100 Insulin] 100 unit/mL (3 mL) insulin pen 15 unit subcut TID Qty: 15 6RF insulin lispro 100 UNIT/ML insulin pen See Protocol subcut ACHS Protocol: 1. Sliding Scale Insulin Low Dosing Condition: 150-224 mg/dl = 1 unit Condition: 225-299 mg/dl = 2 units Condition: 300-374 mg/dl = 3 units Condition: 375-499 mg/dl = 4 units Condition: Greater than 449 call physician Protocol Text: - Use for Total Daily Dose of Insulin 15-27 units - Thin, elderly, renal patients LOW DOSING ALGORITHM ciprofloxacin HCl 500 mg Tablet 500 mg PO BID 10 Days Qty: 20 0RF amoxicillin-pot clavulanate 875-125 mg Tablet 875 mg PO BID 10 Days Qty: 18 0RF enoxaparin 40 mg/0.4 mL Syringe 40 mg subcut DAILY Qty: 12 0RF Rx Instructions: daily application subcutaneous for 21 days doxycycline hyclate 100 mg tablet 100 mg PO BID Qty: 28 0RF ciprofloxacin HCl 750 mg tablet 750 mg PO BID Qty: 28 0RF amiloride 5 mg tablet 5 mg PO BID Qty: 180 3RF Referrals / Follow Up: Rayshawn Mckenna DPM [Med Staff - Active Staff] - See Referral Note (Follow up in 3-5 days upon discharge) Nawaf Villaseñor MD [Primary Care Provider] - Within 2 Weeks Disposition Disposition (needs filled in before D/C Order can be placed): [facility]
--- NOTE | 2022-03-08 12:30 | DS.PCM_ITS ---
Providers Date of Admission: 03/01/22 Primary Care Physician: Dr. Nawaf Villaseñor MD Consultations 03/06/22 15:48 Consult: Infectious Disease Routine Consulting Provider: Anand Lee Reason for Consult: osteo EMERGENT Consult: No MD Notified: Yes Date Notified: 03/06/22 Time Notified: 15:00 Method of Notification: Answering Service Reason For Visit: DIABETIC FOOT WOUND POSS OSTEO Diagnosis Discharge Diagnosis (1) Gangrene of toe of left foot: Status: Acute Code(s): I96 - Gangrene, not elsewhere classified Plan: Foot ulcers with soft tissue gas and swelling and likely underlying acute osteomyelitis seen on x-ray of the foot White blood cell count 16.7 ESR greater than 130 and CRP 329 Patient urgently to the OR 03/[address] Mckenna 03/02: Taken to the OR 03/[address] Mckenna and is status post transmetatarsal amputation of the left foot. Podiatry still following/managing. Dressing changed today. Did have x-ray after surgery which noted the transmetatarsal amputation. Cultures, both tissue and blood, demonstrating staph aureus, he was presently on vancomycin. Infectious disease managing antibiotics, continue to follow cultures, also remains on Zosyn and clindamycin. Will need to follow with podiatry in the office within 3 to 5 days upon discharge 03/03: Has had some delirium, Seroquel and melatonin added nightly. Remains on antibiotics, ID on board. Growing MRSA. 03/06: ID changing antibiotics over to daptomycin q48 for 4 more weeks. 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 Worse 03/05: give a liter of IVF. 03/06: Creatinine again worse. Antibiotics to be changed over from vancomycin to daptomycin. Will give additional IV fluids 03/07: continues to worsen. Will give addn IVF. Check urine studies. Renal US. 03/08: creatinine stabilized at 1.63 JAMI may have been due to vancomycin, which has been discontinued. (3) Essential hypertension: Status: Chronic Code(s): I10 - Essential (primary) hypertension Plan: uncontrolled on metoprolol succinate allergy to amlodipine, ACEi add hydralazine avoid diuretics for time being given JAMI Plan Chronic conditions: * Type 2 diabetes mellitus. continue 25 units twice daily of his long-acting. Glucose checks and sliding scale insulin. 03/03: Significantly improved with control of infection, was scaled back to 22 units twice daily and then to 20u BID * Coronary artery disease with a history of bypass. Has multiple statins, Byetta, Zetia, fenofibrate, gemfibrozil on his allergy list but unknown reaction. Resume BB, cont aspirin to SNF. Medications at Discharge Home Medications aspirin 81 mg tablet,delayed release (Adult Aspirin Regimen) 81 mg PO DAILY heart 05/29/17 ewzgnjrr-oxq-eidpv acid 0.4 mg-lycopene 300 mcg-lutein 250 mcg tablet 1 tab PO DAILY supplement 08/21/18 calcium carb-vit M7-tjjopsejl-rdft 333 mg-200 unit-133 mg-5 mg tablet 1 tab PO DAILY supplement 10/18/19 omega-3 fatty acids 1,000 mg capsule (Fish Oil Concentrate) 1,000 mg PO BID 10/18/19 doxazosin 2 mg tablet 2 mg PO BID prostate #180 tabs 10/05/20 metoprolol succinate 25 mg tablet,extended release 24 hr 12.5 mg PO BID heart 11/21/21 blood sugar diagnostic (Accu-Chek Guide test strips) #100 ea 12/18/21 pen needle, diabetic 32 gauge x 5/32 (BD Ultra-Fine Sammie Pen Needle) #150 ea 12/18/21 acetaminophen 325 mg tablet (Tylenol) 650 mg PO Q6H PRN PRN Pain 1-10 Or Fever >100.7 #0 tabs 03/08/22 arginine 7 gram-glutam 7 gram-CaHMB 1.5 cqcq-kkjvx-gx-min oral pwd pkt (Silviano (with collagen)) 1 packet PO BIDCM #0 ea 03/08/22 daptomycin 500 mg intravenous solution 550 mg IV Q48 #0 ea 03/08/22 hydralazine 50 mg tablet 50 mg PO TID #0 tabs 03/08/22 insulin glargine-yfgn 100 unit/mL (3 mL) subcutaneous pen 20 unit (0.2 mL) subcut BID #0 mL 03/08/22 insulin lispro 100 unit/mL subcutaneous pen (Humalog KwikPen (U-100) Insulin) See Protocol subcut ACHS #0 mL 03/08/22 melatonin 10 mg sublingual tablet 10 mg PO QHS #0 tabs 03/08/22 menthol 0.44 %-zinc oxide 20.6 % topical ointment (Calmoseptine) 1 applic topical 4X/DAY #0 grams 03/08/22 nutrition tx glu intol,lac-free,soy-fiber 0.06 gram-1.2 kcal/mL liquid (Glucerna 1.2 Jaylen) 120 ml PO 4X/DAY #0 mL 03/08/22 quetiapine 25 mg tablet 25 mg PO QHS #0 tabs 03/08/22 sodium chloride 0.9 % (flush) (BD PosiFlush Normal Saline 0.9 % injection syringe) 10 - 40 ml IV UD PRN Saline Flush #0 mL 03/08/22 Hospital Course Operations - (1. Incision and drainage with wide debridement gas gangrene left foot 2. Transmetatarsal amputation left foot) Procedures None Summary of Care Provided Minutes Spent on Discharge: 35 Weight / BMI Weight Weight: 94.7 kg Body Mass Index (BMI) 29.2 ABG / Lab / Microbiology Data Result Diagrams: 03/05/22 05:32 03/08/22 06:00 Laboratory: Laboratory Results - last 24 hr 03/07/22 12:20: Urine Creatinine 63.10 03/07/22 12:20: Urine Color Red, Urine Clarity Turbid, Urine pH 5.0, Ur Specific [place] 1.015, Urine Protein 500 H, Urine Glucose (UA) Normal, Urine Ketones 5 H , Urine Occult Blood 250 H, Urine Nitrite Negative, Urine Bilirubin Negative, Urine Urobilinogen Normal, Ur Leukocyte Esterase 25 H, Urine RBC > 100 SEEN, Urine WBC 5-10 SEEN, Ur Squamous Epith Cells 0 SEEN, Urine Bacteria 0 SEEN, Urine Mucus 0 SEEN 03/07/22 12:20: Ur Random Sodium 71 03/07/22 16:26: POC Glucose 203 H 03/07/22 20:47: POC Glucose 148 H 03/08/22 06:00: Sodium 144, Potassium 4.0, Chloride 114 H, Carbon Dioxide 24.0, Anion Gap 6, BUN 52 H, Creatinine 2.63 H, Estim Creat Clear Calc 23.46, Est GFR (MDRD) Af Amer 30 L, Est GFR (MDRD) Non-Af 25 L, BUN/Creatinine Ratio 19.8, Glucose 124 H, Calcium 8.7 03/08/22 06:24: POC Glucose 119 H 03/08/22 11:17: POC Glucose 156 H Microbiology: Microbiology 03/05/22 16:45 Urine, Clean Catch Urine Culture - Final Culture exhibits no growth. 03/01/22 16:24 Tissue - Left Foot Gram Stain - Final 03/01/22 16:24 Tissue - Left Foot Wound Culture - Final Meth. resistant Staph. aureus 03/01/22 16:24 Tissue - Left Foot Anaerobic Culture - Final Anaerobic cocci 03/01/22 16:59 Tissue - Left Foot Gram Stain - Final 03/01/22 16:59 Tissue - Left Foot Wound Culture - Final Meth. resistant Staph. aureus 03/01/22 16:59 Tissue - Left Foot Anaerobic Culture - Final Anaerobic cocci 03/01/22 16:19 Tissue - Aerobic & Anaerobic Swabs Gram Stain - Final 03/01/22 16:19 Tissue - Aerobic & Anaerobic Swabs Wound Culture - Final Meth. resistant Staph. aureus 03/01/22 16:19 Tissue - Aerobic & Anaerobic Swabs Anaerobic Culture - Final Anaerobic cocci 03/01/22 11:05 Blood Culture (Wb) - Anticubital Left Bacteria Detection (PCR) - Final Staphylococcus aureus mecA Resistance Marker 03/01/22 11:05 Blood Culture (Wb) - Anticubital Left Blood Culture - Final Meth. resistant Staph. aureus 03/04/22 06:50 Blood Culture (Wb) - Anticubital Right Blood Culture - Preliminary No growth in 48 hours. 03/01/22 10:30 Blood Culture (Wb) - Right Forearm Blood Culture - Final Staphylococcus aureus 03/02/22 10:30 Nasal Secretion SARS-CoV-2 & FLU Antigen (Rapid) - Final 03/01/22 19:38 Mucosa - Nasopharyngeal Respiratory Panel (PCR) - Final Meaningful Use Info Meaningful Use Diagnoses (Choose all that apply): None applicable Discharge Plan Admission Admit Date/Time: 03/01/22 12:42 Primary Reason for Your Visit: Gangrene of toe of left foot. Attending Provider: Kevin Webber Primary Care Provider: Nawaf Villaseñor Consulting Providers: Roya Garza ; Anand Lee Discharge Orders/Prescriptions Prescriptions: New acetaminophen [Tylenol] 325 mg Tablet 650 mg PO Q6H PRN PRN (Reason: Pain 1-10 Or Fever >100.7) Qty: 0 0RF sodium chloride 0.9 % (flush) [BD PosiFlush Normal Saline 0.9] Syringe 10 - 40 ml IV UD PRN (Reason: Saline Flush) Qty: 0 0RF daptomycin 500 mg Recon Soln 550 mg IV Q48 Qty: 0 0RF insulin glargine-yfgn 100 unit/mL (3 mL) Insulin Pen 20 unit subcut BID Qty: 0 0RF quetiapine 25 mg Tablet 25 mg PO QHS Qty: 0 0RF hydralazine 50 mg Tablet 50 mg PO TID Qty: 0 0RF insulin lispro [Humalog KwikPen Insulin] 100 unit/mL Insulin Pen See Protocol subcut ACHS Qty: 0 0RF Protocol: 4. Sliding Scale Insulin High-Med Dosing Condition: 150-199 mg/dl = 2 units Condition: 200-259 mg/dl = 4 units Condition: 260-324 mg/dl = 6 units Condition: 325-374 mg/dl = 8 units Condition: 375-409 mg/dl = 10 units Condition: 410-449 mg/dl = 11 units Condition: Greater than 449 call physician Protocol Text: - Use for Total Daily Dose of Insulin 56-80 units - Patient who are insulin resistant or septic HIGH MEDIUM DOSING ALGORITHM Glucerna 1.2 Jaylen 0.06-1.2 gram-kcal/mL Liquid 120 ml PO 4X/DAY Qty: 0 0RF menthol-zinc oxide [Calmoseptine] 0.44-20.6 % Ointment 1 applic topical 4X/DAY Qty: 0 0RF Protocol: *Topical Application Instructions APPLICATION INSTRUCTIONS: apply to affected areas melatonin 10 mg Tablet, Sublingual 10 mg PO QHS Qty: 0 0RF Silviano (with collagen) 7-7-1.5 gram Powder In Packet 1 packet PO BIDCM Qty: 0 0RF Continued aspirin [Adult Aspirin Regimen] 81 mg tablet,delayed release (DR/EC) 81 mg PO DAILY Label Comments: FOLLOW DR SANCHEZ INSTRUCTIONS ABOUT STOPPING calcium carb-D3-mag abv34-myps [phone] wm-xtuq-zu-mg tablet 1 tab PO DAILY Rx Instructions: administer with a meal omega-3 fatty acids [Fish Oil Concentrate] 1,000 mg capsule 1,000 mg PO BID (DME) pen needle, diabetic [BD Ultra-Fine Sammie Pen Needle] 32 gauge x 5/32 needle See Rx Instructions .ROUTE .MEDSUPPLY Qty: 150 6RF Rx Instructions: 5 times daily (DME) Accu-Chek Guide test strips Strip See Rx Instructions .Route Qty: 100 6RF Rx Instructions: three times daily drcxccbh-ikv-MO-lycopen-lutein 1 EACH tablet 1 tab PO DAILY metoprolol succinate 25 mg tablet extended release 24 hr 12.5 mg PO BID doxazosin 2 mg tablet 2 mg PO BID Qty: 180 3RF Discontinued coenzyme Q10 [Co Q-10] 100 mg capsule 100 mg PO DAILY losartan 50 mg tablet 50 mg PO DAILY insulin glargine [Lantus Solostar U-100 Insulin] 100 unit/mL (3 mL) insulin pen 25 unit subcut BID Qty: 15 6RF insulin aspart U-100 [Novolog Flexpen U-100 Insulin] 100 unit/mL (3 mL) insulin pen 15 unit subcut TID Qty: 15 6RF insulin lispro 100 UNIT/ML insulin pen See Protocol subcut [facility] Protocol: 1. Sliding Scale Insulin Low Dosing Condition: 150-224 mg/dl = 1 unit Condition: 225-299 mg/dl = 2 units Condition: 300-374 mg/dl = 3 units Condition: 375-499 mg/dl = 4 units Condition: Greater than 449 call physician Protocol Text: - Use for Total Daily Dose of Insulin 15-27 units - Thin, elderly, renal patients LOW DOSING ALGORITHM ciprofloxacin HCl 500 mg Tablet 500 mg PO BID 10 Days Qty: 20 0RF amoxicillin-pot clavulanate 875-125 mg Tablet 875 mg PO BID 10 Days Qty: 18 0RF enoxaparin 40 mg/0.4 mL Syringe 40 mg subcut DAILY Qty: 12 0RF Rx Instructions: daily application subcutaneous for 21 days doxycycline hyclate 100 mg tablet 100 mg PO BID Qty: 28 0RF ciprofloxacin HCl 750 mg tablet 750 mg PO BID Qty: 28 0RF amiloride 5 mg tablet 5 mg PO BID Qty: 180 3RF Referrals / Follow Up: Rayshawn Mckenna DPM [Med Staff - Active Staff] - See Referral Note (Follow up in 3-5 days upon discharge) Nawaf Villaseñor MD [Primary Care Provider] - Within 2 Weeks Disposition Disposition (needs filled in before D/C Order can be placed): Longterm Facility Charges/Coding Visit Charges Inpatient E&M: 40265 Disch Hosp >30min
--- NOTE | 2022-03-08 13:29 | CASEMGMT ---
SW received notification that patient tested positive for COVID. JAZMÍN spoke with Tiny at [facility] and they can still take patient even though he is positive. JAZMÍN will work on transport and send orders. Vanessa ISRAEL
--- NOTE | 2022-03-08 14:22 | CASEMGMT ---
SW sent orders to [facility] via [employer]. SW also sent positive COVID test to [facility]. JAZMÍN requested a 430 grape picker via the [employer] website. This is the system [facility] is utilizing. JAZMÍN has not received any confirmation so SW will likely have to call [facility]. Plan: d/c to [facility] under skilled level of care. [facility] transported via [facility]. Vanessa ISRAEL
[2022-03-08] MEDS: hydrALAZINE 50 MG Tablet PO (14:42)
--- NOTE | 2022-03-08 16:14 | NURSING ---
Alisia from [facility] called to update us, our p/u time for pt was 1630 and now is going to be closer to 1730.
--- NOTE | 2022-03-08 17:23 | NURSING ---
Report given to [facility] by this nurse as pt was DC to [facility], will assume care of pt
--- NOTE | 2022-03-08 17:36 | NURSING ---
First attempt in calling report to [facility], the aide answers and states she will try to find the nurse and have her give us a call back, instructed this is the progressive care unit at [facility].
--- NOTE | 2022-03-08 17:53 | NURSING ---
Report called to nurse Mackenzie at [facility], will assume care of pt at this time when he arrives
== END 2022-03-08 17:26 | disposition skilled nursing facility (03) | DRG 616 ==
LOC: ED 12:34 → PCU 13:29
PROVIDERS: Student in an Organized Health Care Education/Training Program; Admitting Provider Internal Medicine; Emergency Provider Emergency Medicine; PCP Family Medicine
PROC: 0Y6N0Z9 Detachment at Left Foot, Partial 1st Ray, Open Approach (ICD-10-PCS; principal; 2022-03-01 15:15)
DX: E11.69 Type 2 diabetes mellitus with other specified complication (principal); A48.0 Gas gangrene; M86.172 Other acute osteomyelitis, left ankle and foot; R78.81 Bacteremia; E11.52 Type 2 diabetes mellitus with diabetic peripheral angiopathy with gangrene; L03.116 Cellulitis of left lower limb; E11.22 Type 2 diabetes mellitus with diabetic chronic kidney disease; B95.62 Methicillin resistant Staphylococcus aureus infection as the cause of diseases classified elsewhere; N17.9 Acute kidney failure, unspecified; N18.4 Chronic kidney disease, stage 4 (severe); I73.9 Peripheral vascular disease, unspecified; E11.621 Type 2 diabetes mellitus with foot ulcer; L97.524 Non-pressure chronic ulcer of other part of left foot with necrosis of bone; E11.42 Type 2 diabetes mellitus with diabetic polyneuropathy; E11.628 Type 2 diabetes mellitus with other skin complications; Z79.4 Long term (current) use of insulin; I12.9 Hypertensive chronic kidney disease with stage 1 through stage 4 chronic kidney disease, or unspecified chronic kidney disease; E78.5 Hyperlipidemia, unspecified; I25.10 Atherosclerotic heart disease of native coronary artery without angina pectoris; Z79.2 Long term (current) use of antibiotics; Z95.5 Presence of coronary angioplasty implant and graft; Z79.82 Long term (current) use of aspirin; H91.90 Unspecified hearing loss, unspecified ear; Z95.1 Presence of aortocoronary bypass graft
CPT/HCPCS: 36415; 36569; 73630; 73660; 76000; 80048; 80053; 80202; 81001; 82570; 82962; 83605; 84300; 85025; 85610; 85652; 85730; 86140; 87015; 87040; 87070; 87075; 87077; 87086; 87102; 87116; 87149; 87176; 87186; 87205; 87206; 87426; 87428; 87633; 88304; 88305; 88307; 88311; 93005; 93306; 97116; 97163; 97166; 97530; 97535; 97802; 99251; 99284; J0878; J7030; J7040; J7050; A4216; G0463; J2405; J3490

== ENCOUNTER 2022-03-11 17:11 | Observation (INO) | payer MEDICARE, SELFPAY ==
[2022-03-11 17:15] VITALS: BP 164/68; PULSE 67; RESP 17; TEMP 36.9; O2SAT 97; BMI 30.5
--- NOTE | 2022-03-11 18:03 | EKG12_ITS ---
Test Reason : ABN LABS Blood Pressure : / mmHG Vent. Rate : 073 BPM Atrial Rate : 073 BPM P-R Int : 174 ms QRS Dur : 092 ms QT Int : 406 ms P-R-T Axes : 032 044 236 degrees QTc Int : 447 ms Sinus rhythm with Premature atrial complexes Left ventricular hypertrophy Possible Inferior infarct , age undetermined ST/T wave abnormality: Consider LVH repolarization vs myocardial ischemia Abnormal ECG Confirmed by HUBERT MIDDLETON, JAMA ([id number]), purchase request editor KENDALL VICK ([id number]) on 03/13/2022 10:40:32 AM Referred By: Confirmed By:JAMA GASPAR MD
--- NOTE | 2022-03-11 18:04 | EDS_ITS ---
HPI History of Present Illness Chief Complaint: Abn Labs Narrative Narrative: 81-year-old male presenting for evaluation of hemoptysis. 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 He is presenting from his long term where he was supposed to be receiving daptomycin. He has hemoptysis for the last 3 days. Recent diagnosis of COVID. He states that he has been coughing up a lot of blood-tinged sputum. Has not had a fever. Not complaining of shortness of breath. He states that his left foot wound is doing well. He states he had lab work drawn today and was reportedly told he needed to come to the emergency room for a CAT scan of his chest to rule out a PE. He is not reporting any chest pain. 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 Atherosclerosis of coronary artery of torres martinez heart without angina pectoris Bacteremia Bone fracture Cellulitis of right lower extremity Delayed wound healing Dizziness DM type 2, uncontrolled, with renal complications Essential hypertension Hearing problem Hyperlipidemia Hyperlipidemia associated with type 2 diabetes mellitus Malnutrition Obesity Osteomyelitis of foot, acute Other specified peripheral vascular diseases PAD (peripheral artery disease) Peripheral vascular disease, unspecified Pneumonia Restless legs 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 Uncontrolled type 2 diabetes mellitus, with long-term current use of insulin Home Medications aspirin 81 mg tablet,delayed release (Adult Aspirin Regimen) 81 mg PO DAILY heart 05/29/17 [History Last Taken 11/21/21] rtjnewcz-cao-pnodg acid 0.4 mg-lycopene 300 mcg-lutein 250 mcg tablet 1 tab PO DAILY supplement 08/21/18 [History Last Taken 11/21/21] calcium carb-vit A7-lsgwkddfd-humn 333 mg-200 unit-133 mg-5 mg tablet 1 tab PO DAILY supplement 10/18/19 [History Last Taken 11/21/21] omega-3 fatty acids 1,000 mg capsule (Fish Oil Concentrate) 1,000 mg PO BID 10/18/19 [History Last Taken Unknown] doxazosin 2 mg tablet 2 mg PO BID prostate #180 tabs 10/05/20 [Rx Last Taken 11/21/21] metoprolol succinate 25 mg tablet,extended release 24 hr 12.5 mg PO BID heart 11/21/21 [History Last Taken 11/21/21] blood sugar diagnostic (Accu-Chek Guide test strips) #100 ea 12/18/21 [Rx Last Taken Unknown] pen needle, diabetic 32 gauge x 5/32 (BD Ultra-Fine Sammie Pen Needle) #150 ea 12/18/21 [Rx Last Taken Unknown] acetaminophen 325 mg tablet (Tylenol) 650 mg PO Q6H PRN PRN Pain 1-10 Or Fever >100.7 #0 tabs 03/08/22 [Rx Last Taken Unknown] arginine 7 gram-glutam 7 gram-CaHMB 1.5 frqp-gsiar-cm-min oral pwd pkt (Silviano (with collagen)) 1 packet PO BIDCM #0 ea 03/08/22 [Rx Last Taken Unknown] daptomycin 500 mg intravenous solution 550 mg IV Q48 #0 ea 03/08/22 [Rx Last Taken Unknown] hydralazine 50 mg tablet 50 mg PO TID #0 tabs 03/08/22 [Rx Last Taken Unknown] insulin glargine-yfgn 100 unit/mL (3 mL) subcutaneous pen 20 unit (0.2 mL) subcut BID #0 mL 03/08/22 [Rx Last Taken Unknown] insulin lispro 100 unit/mL subcutaneous pen (Humalog KwikPen (U-100) Insulin) See Protocol subcut ACHS #0 mL 03/08/22 [Rx Last Taken Unknown] melatonin 10 mg sublingual tablet 10 mg PO QHS #0 tabs 03/08/22 [Rx Last Taken Unknown] menthol 0.44 %-zinc oxide 20.6 % topical ointment (Calmoseptine) 1 applic topical 4X/DAY #0 grams 03/08/22 [Rx Last Taken Unknown] nutrition tx glu intol,lac-free,soy-fiber 0.06 gram-1.2 kcal/mL liquid (Glucerna 1.2 Jaylen) 120 ml PO 4X/DAY #0 mL 03/08/22 [Rx Last Taken Unknown] quetiapine 25 mg tablet 25 mg PO QHS #0 tabs 03/08/22 [Rx Last Taken Unknown] sodium chloride 0.9 % (flush) (BD PosiFlush Normal Saline 0.9 % injection syringe) 10 - 40 ml IV UD PRN Saline Flush #0 mL 03/08/22 [Rx Last Taken Unknown] Allergy/AdvReac Type Severity Reaction Status Date / Time glyburide Allergy Intermediate Unknown Verified 03/11/22 17:54 Iodinated Contrast Media Allergy Rash Verified 03/11/22 17:54 [CONTRASTS] amlodipine [From Norvasc] AdvReac Unknown Unknown Verified 03/11/22 17:54 atorvastatin [From Lipitor] AdvReac Unknown Unknown Verified 03/11/22 17:54 cerivastatin [From Baycol] AdvReac Unknown Unknown Verified 03/11/22 17:54 enalapril AdvReac Unknown Unknown Verified 03/11/22 17:54 exenatide [From Byetta] AdvReac Unknown Unknown Verified 03/11/22 17:54 ezetimibe [From Zetia] AdvReac Unknown Unknown Verified 03/11/22 17:54 fenofibrate [From Tricor] AdvReac Unknown Unknown Verified 03/11/22 17:54 gemfibrozil AdvReac Unknown Unknown Verified 03/11/22 17:54 glipizide [From Glucotrol] AdvReac Unknown Unknown Verified 03/11/22 17:54 labetalol AdvReac Unknown Unknown Verified 03/11/22 17:54 lovastatin [From Mevacor] AdvReac Unknown Unknown Verified 03/11/22 17:54 metformin [From Glucophage] AdvReac Unknown Unknown Verified 03/11/22 17:54 niacin AdvReac Unknown Unknown Verified 03/11/22 17:54 [From Niaspan Extended-Release] nifedipine [From Adalat] AdvReac Unknown Unknown Verified 03/11/22 17:54 quinapril [From Accupril] AdvReac Unknown Unknown Verified 03/11/22 17:54 repaglinide [From Prandin] AdvReac Unknown Unknown Verified 03/11/22 17:54 rosuvastatin [From Crestor] AdvReac Unknown Unknown Verified 03/11/22 17:54 simvastatin [From Zocor] AdvReac Unknown Unknown Verified 03/11/22 17:54 Family History Mother Diabetes Father , Age 56 Myocardial infarction Brother Diabetes Brother Diabetes Brother Multiple sclerosis Surgical History History of coronary artery bypass graft History of coronary artery stent placement History of lung surgery 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) History of transmetatarsal amputation of right foot Presence of stent in coronary artery Social History household members: spouse housing: long term Smoking Status: Never smoker second hand exposure: No alcohol intake: never substance use type: does not use ROS ROS ED Review of Systems ROS Unobtainable: Denies due to encephalopathy Constitutional Constitutional ED: Denies chills or fever(s) Eyes Eyes: Denies change in vision or diplopia ENT ENT ED: Denies rhinorrhea Cardiovascular Cardiovascular: Denies chest pain or palpitations Respiratory/Chest Respiratory/Chest: Reports cough and other Details: Hemoptysis Gastrointestinal Gastrointestinal: Denies abdominal pain, nausea or vomiting Genitourinary Genitourinary ED: Denies dysuria or hematuria Musculoskeletal Musculoskeletal: Denies arthralgias Integumentary Denies abscess or Abrasions Neurologic Neurologic: Denies headache(s) Psychiatric Psychiatric: Denies anxiety or depression EXAM Physical Exam Const Vital Signs: 03/11/22 17:15 03/11/22 18:36 03/11/22 19:42 Temperature 98.5 F 98 F Temperature Source Temporal Temporal Pulse Rate 67 75 Respiratory Rate 17 15 Blood Pressure 164/68 H 149/67 H 173/79 H Blood Pressure Mean 100 94 110 Pulse Ox 97 Oxygen Delivery Method Room Air Positive well nourished General Appearance ED: NAD HEENT Reports moist mucous membranes Eyes PERRL and EOMs intact bilaterally Neck no lymphadenopathy Resp normal respiratory effort and clear to auscultation bilaterally Auscultation: Negative for rales, rhonchi or wheezes Cardio regular rate and regular rhythm GI normal to inspection, nondistended, normoactive bowel sounds Extremity Extremity Narrative: Status post amputation of the left foot. Wound appears clean and dry. No cellulitic change. No drainage Neuro oriented x3 and CN's II-XII intact bilaterally Sensorium / Orientation: alert Psych mental status grossly normal MDM MDM MDM Narrative Medical decision making narrative: Was able to look at the patient's lab work. Apparently had basic labs drawn today and his earlier today was 10.5 which is near his baseline most recently. Recheck of the CBC this evening shows a hemoglobin of 9.8. Patient is near his normal baseline however this is lower than this morning. He is not reported any chest pain. His vital signs are all normal. He is showing me his sputum and there is some blood tingeing in this. His creatinine is 2.55 which is near his most recent baseline. Electrolytes unremarkable. High-sensitivity troponin is 30. EKG on my interpretation shows sinus rhythm at a ventricular to 73 bpm with occasional PACs. I did also see that he had an elevated D-dimer at 2.21 today. This could possibly be elevated because of COVID as well as recent surgery. Due to his very poor kidney function and allergy to iodine I want to try to refrain from a CTA given he is 97% on room air with a normal respiratory rate of 17 and a pulse of 67. I did obtain a BNP and this is mildly elevated to 50, however his chest x-ray performed today does not show any acute cardiopulmonary process on my interpretation and the radiologist interprets this and agrees. After speaking with the hospitalist I will obtain DVT studies. These are currently pending. Currently the plan is to admit the patient for monitoring of his hemoglobin to make sure this stays stable. We will continue with antibiotics in the hospital. Impression: 1. Hemoptysis 2. Elevated D-dimer Lab Data Attestation: I reviewed the patient's lab results. Labs: Laboratory Results - last 24 hr 03/11/22 03/11/22 03/11/22 18:30 18:30 18:30 WBC 8.0 RBC 3.46 L Hgb 9.8 L Hct 29.8 L MCV 86.1 MCH 28.3 MCHC 32.9 RDW Std Deviation 40.6 RDW Coeff of Kelsey 13.1 Plt Count 307 MPV 8.8 Immature Gran % (Auto) 0.400 Neut % (Auto) 68.1 Lymph % (Auto) 23.2 [place] % (Auto) 6.8 Eos % (Auto) 1.1 Baso % (Auto) 0.4 Absolute Neuts (auto) 5.5 Absolute Lymphs (auto) 1.86 Nucleated RBC % 0 Sodium 143 Potassium 3.6 Chloride 112 H Carbon Dioxide 24.0 Anion Gap 7 BUN 42 H Creatinine 2.55 H Estim Creat Clear Calc 23.46 Est GFR (MDRD) Af Amer 31 L Est GFR (MDRD) Non-Af 26 L BUN/Creatinine Ratio 16.5 Glucose 112 H Calcium 8.6 Ferritin Lactate Dehydrogenase Troponin I High Sens 30 C-React Prot Ext Range B-Natriuretic Peptide Procalcitonin 03/11/22 03/11/22 03/11/22 18:30 18:30 18:30 WBC RBC Hgb Hct MCV MCH MCHC RDW Std Deviation RDW Coeff of Kelsey Plt Count MPV Immature Gran % (Auto) Neut % (Auto) Lymph % (Auto) [place] % (Auto) Eos % (Auto) Baso % (Auto) Absolute Neuts (auto) Absolute Lymphs (auto) Nucleated RBC % Sodium Potassium Chloride Carbon Dioxide Anion Gap BUN Creatinine Estim Creat Clear Calc Est GFR (MDRD) Af Amer Est GFR (MDRD) Non-Af BUN/Creatinine Ratio Glucose Calcium Ferritin 299 Lactate Dehydrogenase 141 Troponin I High Sens C-React Prot Ext Range 67.00 H B-Natriuretic Peptide 250.2 H Procalcitonin 0.13 H Radiography Diagnostic Testing: Clinical Impression(s) from Imaging Studies Chest X-Ray 03/11/22 19:00 IMPRESSION: No acute radiographic abnormalities. Bilateral calcified pleural plaques. Chronic elevation of the right hemidiaphragm. Electronically Signed: Arthur Houser MD at 19:45 EST Reading Location ID and State: [facility] / [place] Tel , Service support , Discharge Plan Triage Chief Complaint: Abn Labs ED Provider: Rao Cintron Dx/Rx/DC Orders Prescriptions: No Action aspirin [Adult Aspirin Regimen] 81 mg tablet,delayed release (DR/EC) 81 mg PO DAILY Label Comments: FOLLOW DR SANCHEZ INSTRUCTIONS ABOUT STOPPING calcium carb-D3-mag [id number] sk-fxjn-ti-mg tablet 1 tab PO DAILY Rx Instructions: administer with a meal omega-3 fatty acids [Fish Oil Concentrate] 1,000 mg capsule 1,000 mg PO BID (DME) pen needle, diabetic [BD Ultra-Fine Sammie Pen Needle] 32 gauge x 5/32 needle See Rx Instructions .ROUTE .MEDSUPPLY Qty: 150 6RF Rx Instructions: 5 times daily (DME) Accu-Chek Guide test strips Strip See Rx Instructions .Route Qty: 100 6RF Rx Instructions: three times daily xamdltnx-jze-QD-lycopen-lutein 1 EACH tablet 1 tab PO DAILY metoprolol succinate 25 mg tablet extended release 24 hr 12.5 mg PO BID acetaminophen [Tylenol] 325 mg Tablet 650 mg PO Q6H PRN PRN (Reason: Pain 1-10 Or Fever >100.7) Qty: 0 0RF sodium chloride 0.9 % (flush) [BD PosiFlush Normal Saline 0.9] Syringe 10 - 40 ml IV UD PRN (Reason: Saline Flush) Qty: 0 0RF daptomycin 500 mg Recon Soln 550 mg IV Q48 Qty: 0 0RF insulin glargine-yfgn 100 unit/mL (3 mL) Insulin Pen 20 unit subcut BID Qty: 0 0RF quetiapine 25 mg Tablet 25 mg PO QHS Qty: 0 0RF hydralazine 50 mg Tablet 50 mg PO TID Qty: 0 0RF insulin lispro [Humalog KwikPen Insulin] 100 unit/mL Insulin Pen See Protocol subcut ACHS Qty: 0 0RF Protocol: 4. Sliding Scale Insulin High-Med Dosing Condition: 150-199 mg/dl = 2 units Condition: 200-259 mg/dl = 4 units Condition: 260-324 mg/dl = 6 units Condition: 325-374 mg/dl = 8 units Condition: 375-409 mg/dl = 10 units Condition: 410-449 mg/dl = 11 units Condition: Greater than 449 call physician Protocol Text: - Use for Total Daily Dose of Insulin 56-80 units - Patient who are insulin resistant or septic HIGH MEDIUM DOSING ALGORITHM Glucerna 1.2 Jaylen 0.06-1.2 gram-kcal/mL Liquid 120 ml PO 4X/DAY Qty: 0 0RF menthol-zinc oxide [Calmoseptine] 0.44-20.6 % Ointment 1 applic topical 4X/DAY Qty: 0 0RF Protocol: *Topical Application Instructions APPLICATION INSTRUCTIONS: apply to affected areas melatonin 10 mg Tablet, Sublingual 10 mg PO QHS Qty: 0 0RF Silviano (with collagen) 7-7-1.5 gram Powder In Packet 1 packet PO BIDCM Qty: 0 0RF doxazosin 2 mg tablet 2 mg PO BID Qty: 180 3RF Primary Care Provider: Nawaf Villaseñor Referrals: Nawaf Villaseñor MD [Primary Care Provider] -
--- NOTE | 2022-03-11 18:13 | US_ITS ---
INDICATION: COUGHING UP BLOOD HAS COVID ELEV D DIMER EXAMINATION: US Venous Duplex LE Bilat Complete TECHNIQUE: Patton scale, pulse wave, and color flow Doppler imaging was performed of the lower extremity venous system. The bilateral greater saphenous, common femoral, femoral, and popliteal veins were interrogated. COMPARISON: None. FINDINGS: There is normal compression, augmentation, and signal throughout the visualized deep lower extremity veins. No mass or fluid collection. US/Venous Duplex Imag/Fran Extrem IMPRESSION: No sonographic evidence of deep venous thrombosis. Electronically Signed: Arthur Houser MD at 20:33 EST ,
[2022-03-11 18:36] VITALS: BP 149/67; PULSE 75; RESP 15; TEMP 36.6
[2022-03-11 18:41] LABS: Absolute Lymphocyte Count 1.86 X10^3/uL (0.83-4.51); Absolute Neutrophil Count 5.5 X10^3/uL (2.0-7.7); Basophil# 0.03 X10^3/uL; Basophil% 0.4 % (0-1); Eosinophil# 0.09 X10^3/uL; Eosinophils% 1.1 % (0-5); Hematocrit 29.8 % (40-54); Hemoglobin 9.8 g/dL (13.0-16.5); Lymphocyte # 1.86 X10^3/ul (0.83-4.51); Lymphocyte % 23.2 % (19-41); Mean Corp Hgb Conc 32.9 g/dL (32-36); Mean Corpuscular Hgb 28.3 pg (27.0-32.0); Mean Corpuscular Volume 86.1 fL (80-94); Mean Platelet Vol. 8.8 fl (6.2-12.0); Monocyte# 0.55 X10^3/uL; Monocyte% 6.8 % (0-10); NRBC Flagged by Analyzer 0 % (0-5); Neutrophil # 5.47 X10^3/uL (2.7-7.7); Neutrophil % 68.1 % (47-70); Platelet Count 307 K/mm3 (150-450); RBC Distribution Width CV 13.1 % (11.6-14.6); RBC Distribution Width SD 40.6 fl (35.1-43.9); Red Blood Count 3.46 M/mm3 (4.6-6.2)
--- NOTE | 2022-03-11 19:00 | RAD_ITS ---
INDICATION: cough EXAMINATION/TECHNIQUE: X-RAY - XR Chest 1 View COMPARISON: 06/05/2020. FINDINGS: Right basilar atelectasis. The lungs are otherwise clear. Sternal cerclage wires and vascular clips are present from a prior sternotomy and coronary artery bypass graft procedure (CABG). The heart is mildly enlarged. Tortuous and calcified thoracic aorta. Bilateral calcified pleural plaques. Elevation of right hemidiaphragm. No pleural effusion or pneumothorax. Degenerative changes of the thoracic spine. RAD/Chest 1 View (Portable) IMPRESSION: No acute radiographic abnormalities. Bilateral calcified pleural plaques. Chronic elevation of the right hemidiaphragm. Electronically Signed: Arthur Houser MD at 19:45 EST ,
[2022-03-11 19:02] LABS: Anion Gap 7 (5-15); BUN 42 mg/dL (7-18); BUN/Creat Ratio 16.5 RATIO (10-20); Calcium,Total 8.6 mg/dL (8.5-10.1); Chloride 112 mmol/L (98-107); Creatinine, Serum 2.55 mg/dL (0.70-1.30); EST Glomerular Filtration Rate 26 mL/min (>60); Est Glom Filt Rate - Afr Amer 31 mL/min (>60); Estimated Creatinine Clearance 23.46 ml/min; Glucose 112 mg/dL (74-106); Potassium 3.6 mmol/L (3.5-5.1); Sodium Level 143 mmol/L (136-145)
--- NOTE | 2022-03-11 19:40 | HP.PCM.HOS_ITS ---
HPI - General General Date of Admission: 03/11/22 Date of Service: 03/11/22 Chief Complaint: Recent COVID diagnosis, hemoptysis. HPI Narrative The patient is an 81 y/o M w/ PMHx: CAD s/p CABG/PCI, HTN, HLD, CKD stage IV, Diabetes mellitus type II, PVD, PAD, RLS, Chronic anemia, recent admission with discharge on 03/08/22 to SNF following treatment and evaluation of gangrenous left diabetic foot ulcers/toe with acute osteomyelitis taken urgently to the OR 03/01/[address] Mckenna with TMA L foot treated with zosyn and clinda->transitioned to daptomycin q 48 hours x 4 weeks with concurrent JAMI on CKD stage IV (baseline Cr reported 1.8) who now re-presents with history of mild ongoing coughing with no significant respiratory distress however over the last 3 days he did initially have bright red blood and was reportedly copious in afsaneh unt since decreased with only mild blood-tinged occasional sputum with skilled facility obtaining D-dimer notably elevated with unremarkable chest x-ray at their facility in stable hemoglobin however given his history with recent diagnosis of COVID incidentally on antigen testing for skilled facility transfer from recent admission transition to ED for evaluation. He reports chills, no specific fevers but he is unsure of his recent SNF temperatures, nausea without emesis, diarrhea, congestion, cough with mildly productive sputum in addition to history of hemoptysis as noted. Work-up in the ED included T 98, heart 75, BP 149/67, respiratory rate 15, 97% on room air, CBC with WC 8, hemoglobin 9.8, platelet 307 without marked shift, BMP with chloride 112, BUN/creatinine 42/2.55, glucose 112, chest x-ray performed at outside facility with no acute cardiopulmonary findings with repeat chest x-ray pending upon evaluation, bilateral lower extremity duplex ultrasound pending upon requested evaluation, EKG with sinus rhythm with nonspecific ST-T wave changes similar to prior. From review of records 03/08/2022 SARS COVID antigen obtained for transition to skilled and was noted to be positive at that time with unclear onset of infection. COUNTS INCLUDE 234 BEDS AT THE [facility] Medical History (Updated 03/11/22 @ 19:[address] Keisha Wilkins MD) Atherosclerosis of coronary artery bypass graft of [place] heart Atherosclerosis of coronary artery of [place] heart without angina pectoris Bacteremia Bone fracture Cellulitis of right lower extremity Delayed wound healing Dizziness DM type 2, uncontrolled, with renal complications Essential hypertension Hearing problem Hyperlipidemia Hyperlipidemia associated with type 2 diabetes mellitus Malnutrition Obesity Osteomyelitis of foot, acute Other specified peripheral vascular diseases PAD (peripheral artery disease) Peripheral vascular disease, unspecified Pneumonia Restless legs 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 Uncontrolled type 2 diabetes mellitus, with long-term current use of insulin Home Medications aspirin 81 mg tablet,delayed release (Adult Aspirin Regimen) 81 mg PO DAILY heart 05/29/17 [History Last Taken 11/21/21] vujafeny-tzu-ycgfw acid 0.4 mg-lycopene 300 mcg-lutein 250 mcg tablet 1 tab PO DAILY supplement 08/21/18 [History Last Taken 11/21/21] calcium carb-vit V9-ykleiwfkq-tnmr 333 mg-200 unit-133 mg-5 mg tablet 1 tab PO DAILY supplement 10/18/19 [History Last Taken 11/21/21] omega-3 fatty acids 1,000 mg capsule (Fish Oil Concentrate) 1,000 mg PO BID 10/18/19 [History Last Taken Unknown] doxazosin 2 mg tablet 2 mg PO BID prostate #180 tabs 10/05/20 [Rx Last Taken 11/21/21] metoprolol succinate 25 mg tablet,extended release 24 hr 12.5 mg PO BID heart 11/21/21 [History Last Taken 11/21/21] blood sugar diagnostic (Accu-Chek Guide test strips) #100 ea 12/18/21 [Rx Last Taken Unknown] pen needle, diabetic 32 gauge x 5/32 (BD Ultra-Fine Sammie Pen Needle) #150 ea 12/18/21 [Rx Last Taken Unknown] acetaminophen 325 mg tablet (Tylenol) 650 mg PO Q6H PRN PRN Pain 1-10 Or Fever >100.7 #0 tabs 03/08/22 [Rx Last Taken Unknown] arginine 7 gram-glutam 7 gram-CaHMB 1.5 vkzm-woscz-dh-min oral pwd pkt (Silviano (with collagen)) 1 packet PO BIDCM #0 ea 03/08/22 [Rx Last Taken Unknown] daptomycin 500 mg intravenous solution 550 mg IV Q48 #0 ea 03/08/22 [Rx Last Taken Unknown] hydralazine 50 mg tablet 50 mg PO TID #0 tabs 03/08/22 [Rx Last Taken Unknown] insulin glargine-yfgn 100 unit/mL (3 mL) subcutaneous pen 20 unit (0.2 mL) subcut BID #0 mL 03/08/22 [Rx Last Taken Unknown] insulin lispro 100 unit/mL subcutaneous pen (Humalog KwikPen (U-100) Insulin) See Protocol subcut ACHS #0 mL 03/08/22 [Rx Last Taken Unknown] melatonin 10 mg sublingual tablet 10 mg PO QHS #0 tabs 03/08/22 [Rx Last Taken Unknown] menthol 0.44 %-zinc oxide 20.6 % topical ointment (Calmoseptine) 1 applic topi jaylen 4X/DAY #0 grams 03/08/22 [Rx Last Taken Unknown] nutrition tx glu intol,lac-free,soy-fiber 0.06 gram-1.2 kcal/mL liquid (Glucerna 1.2 Jaylen) 120 ml PO 4X/DAY #0 mL 03/08/22 [Rx Last Taken Unknown] quetiapine 25 mg tablet 25 mg PO QHS #0 tabs 03/08/22 [Rx Last Taken Unknown] sodium chloride 0.9 % (flush) (BD PosiFlush Normal Saline 0.9 % injection syringe) 10 - 40 ml IV UD PRN Saline Flush #0 mL 03/08/22 [Rx Last Taken Unknown] Allergy/AdvReac Type Severity Reaction Status Date / Time glyburide Allergy Intermediate Unknown Verified 03/11/22 17:54 Iodinated Contrast Media Allergy Rash Verified 03/11/22 17:54 [CONTRASTS] amlodipine [From Norvasc] AdvReac Unknown Unknown Verified 03/11/22 17:54 atorvastatin [From Lipitor] AdvReac Unknown Unknown Verified 03/11/22 17:54 cerivastatin [From Baycol] AdvReac Unknown Unknown Verified 03/11/22 17:54 enalapril AdvReac Unknown Unknown Verified 03/11/22 17:54 exenatide [From Byetta] AdvReac Unknown Unknown Verified 03/11/22 17:54 ezetimibe [From Zetia] AdvReac Unknown Unknown Verified 03/11/22 17:54 fenofibrate [From Tricor] AdvReac Unknown Unknown Verified 03/11/22 17:54 gemfibrozil AdvReac Unknown Unknown Verified 03/11/22 17:54 glipizide [From Glucotrol] AdvReac Unknown Unknown Verified 03/11/22 17:54 labetalol AdvReac Unknown Unknown Verified 03/11/22 17:54 lovastatin [From Mevacor] AdvReac Unknown Unknown Verified 03/11/22 17:54 metformin [From Glucophage] AdvReac Unknown Unknown Verified 03/11/22 17:54 niacin AdvReac Unknown Unknown Verified 03/11/22 17:54 [From Niaspan Extended-Release] nifedipine [From Adalat] AdvReac Unknown Unknown Verified 03/11/22 17:54 quinapril [From Accupril] AdvReac Unknown Unknown Verified 03/11/22 17:54 repaglinide [From Prandin] AdvReac Unknown Unknown Verified 03/11/22 17:54 rosuvastatin [From Crestor] AdvReac Unknown Unknown Verified 03/11/22 17:54 simvastatin [From Zocor] AdvReac Unknown Unknown Verified 03/11/22 17:54 Family History Mother Diabetes Father , Age 56 Myocardial infarction Brother Diabetes Brother Diabetes Brother Multiple sclerosis Surgical History History of coronary artery bypass graft History of coronary artery stent placement History of lung surgery 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 Keisha Wilkins MD) household members: spouse housing: assisted Smoking Status: Never smoker second hand exposure: No alcohol intake: never substance use type: does not use ROS ROS Narrative Admission Review of Systems: CONSTITUTIONAL: No weight loss, fever, + chills, weakness or fatigue. HEENT: Eyes: No visual loss, blurred vision, double vision or yellow sclerae. Ears, Nose, Throat: No hearing loss, sneezing, congestion, runny nose or sore throat. SKIN: + s/p recent L TMA, no drainage from incision, intact. CARDIOVASCULAR: No chest pain, chest pressure or chest discomfort, palpitations, edema, orthopnea, syncopal events. RESPIRATORY: + cough, mildly productive sputum, hemoptysis, No shortness of breath despite symptoms. GASTROINTESTINAL: + anorexia, nausea without vomiting, diarrhea, No abdominal pain, melena, BRBPR. GENITOURINARY: No dysuria, frequency, urgency or retention. NEUROLOGICAL: + Recent episodes of delirium during prior admission, oriented appropriately currently. No headache, dizziness, syncope, paralysis, ataxia, numbness or tingling in the extremities, focal weakness, change in bowel or bladder control, seizure. MUSCULOSKELETAL: + muscle, back pain, joint pain or stiffness. HEMATOLOGIC: + anemia, bleeding or bruising. LYMPHATICS: No enlarged nodes. No history of splenectomy. PSYCHIATRIC: No history of depression or anxiety. ENDOCRINOLOGIC: No reports of sweating, cold or heat intolerance. No polyuria or polydipsia. ALLERGIES: No history of asthma, hives, eczema or rhinitis. Vital Signs Vital Signs Vital Signs: 03/11/22 17:15 03/11/22 18:36 Temperature 98.5 F 98 F Temperature Source Temporal Temporal Pulse Rate 67 75 Respiratory Rate 17 15 Blood Pressure 164/68 H 149/67 H Blood Pressure Mean 100 94 Pulse Ox 97 Oxygen Delivery Method Room Air Weight Weight: 212 lb 11.2 oz Body Mass Index (BMI) 30.5 Physical Exam Narrative Physical Examination: General: Awake, alert, oriented to self, place, recent events, remains cooperative, seated upright in the ED bed in no apparent distress, hard of hear ing, mildly irritable. Skin: Normal color, normal turgor, no icterus, no cyanosis except for occasional staged ecchymoses, status post recent left TMA with incision intact, no drainage HEENT: AT/NC, EOMI, PERRLA, mildly dry MM, no carotid bruits or JVD noted. Lungs: Diminished, > bases, respiratory effort appears completely normal, no rales, ronchi or wheezing. Heart: Regular rate and rhythm; no gallop, rub audible. Abdomen: Soft, obese, NTTP, ND, mildly hyperactive BS, no HSM. Extremities: No cyanosis, no clubbing, see skin, mild BL ankle not markedly pitting edema, no calf TTP BL. Neurological: Patient awake, alert, oriented as noted, cognitive function intact currently appears intact, had been noted delirium during prior presentation; pupils equally reactive to light and accommodation, cranial nerves II-XII grossly normal, moving all 4 extremities, no focal deficits, strength moderately globally decreased secondary to acute presentation and recent illnesses. Psychiatric: Affect appears fatigued, mildly irritable, no acute evidence of depressive or anxiety feelings. Results Lab / Micro Data Result Diagrams: 03/11/22 18:30 03/11/22 18:30 Labs: Laboratory Results - last 24 hr 03/11/22 18:30: WBC 8.0, RBC 3.46 L, Hgb 9.8 L, Hct 29.8 L, MCV 86.1, MCH 28.3, MCHC 32.9, RDW Std Deviation 40.6, RDW Coeff of [place] 13.1, Plt Count 307, MPV 8.8, Immature Gran % (Auto) 0.400, Neut % (Auto) 68.1, Lymph % (Auto) 23.2, [place] % (Auto) 6.8, Eos % (Auto) 1.1, Baso % (Auto) 0.4, Absolute Neuts (auto) 5.5, Absolute Lymphs (auto) 1.86, Nucleated RBC % 0 03/11/22 18:30: Sodium 143, Potassium 3.6, Chloride 112 H, Carbon Dioxide 24.0, Anion Gap 7, BUN 42 H, Creatinine 2.55 H, Estim Creat Clear Calc 23.46, Est GFR (MDRD) Af Amer 31 L, Est GFR (MDRD) Non-Af 26 L, BUN/Creatinine Ratio 16.5, Glucose 112 H, Calcium 8.6 Assessment & Plan Assessment/Plan (1) COVID-19: PLAN: Plan The patient is an 81 y/o M w/ PMHx: CAD s/p CABG/PCI, HTN, HLD, CKD stage IV, Diabetes mellitus type II, PVD, PAD, RLS, Chronic anemia, recent admission with discharge on 03/08/22 to SNF following treatment and evaluation of gangrenous left diabetic foot ulcers/toe with acute osteomyelitis taken urgently to the OR 03/01/[address] Mckenna with TMA L foot treated with zosyn and clinda- >transitioned to daptomycin q 48 hours x 4 weeks with concurrent JAMI on CKD stage IV (baseline Cr reported 1.8) who now re-presents with history of mild ongoing coughing with no significant respiratory distress however over the last 3 days he did initially have bright red blood and was reportedly copious in amount since decreased with only mild blood-tinged occasional sputum with skilled facility obtaining D-dimer notably elevated with unremarkable chest x- ray at their facility in stable hemoglobin however given his history with recent diagnosis of COVID incidentally on antigen testing for skilled facility transfer from recent admission transition to ED for evaluation. #1. Recently Diagosed (03/08/22 per antigen testing) Incidentally noted Acute Viral Syndrome, COVID-19 now with onset acute hemoptysis: Will admit to the MS telemetry to be cautious, maintain on COVID precautions given timeline, currently not require any oxygen supplementation, PRN albuterol, HOB, IS parameters w/ pending sputum cultures, full respiratory viral panel and urine antigens, D-dimer elevated at outside facility however given infection would expect elevation as well as underlying renal disease, may consider trending, duplex ultrasound bilateral lower extremities pending upon admission, will also obtain procalcitonin, CRP, CPK, Ferritin, LDH, trop (expect given renal disease likely will be elevated to some degree) and BNP, continue supportive care including q 2 hour turning including prone given no prone bed availability and judicious hydration, closely monitor for worsening status for ARDS and mul tiorgan failure, patient oxygenation is highly appropriate thus will defer steroid therapy at this time especially given acute presentation complaints. Currently sputum evaluated in the ED not marked appearing and occasionally mildly tinged lightly with blood but very minimal, reportedly improved from the last couple days, if onset again significant may need to consider pulmonary consultation or VQ scan. Given loose stool complaints will also have as needed loperamide. #2. Recent Left Foot Diabetic MRSA Infected Ulcers/Osteomyelitis/Gangrene: Status post 03/01/2022 urgent TMA per podiatry, Dr. Mckenna, wound cultures with noted MRSA, evaluated at that time by also infectious disease, treated inpatient with course of Zosyn and clindamycin eventually transition to IV daptomycin every 48 hours for 4 weeks, will continue nonweightbearing status to the left lower extremity, encourage elevation, incisional care. #3. Recent JAMI on Chronic Kidney Disease Stage IV: Admission BUN/Cr 42/2.55, baseline renal function 1.8 however during recent admission bill up to a max 2.66 on 03/07/2022 with discharge creatinine on 03/08/2022 2.63, appears to have trended down somewhat, repeat BMP in AM. #4. CAD: Status post CABG and PCI, given history of hemoptysis with recent COVID illness we will temporarily hold aspirin pending further evaluation of the chest, add back immediately once able, continue metoprolol, not on ALANA Imdur/ARB likely secondary to underlying renal disease, per current list not on statin therapy, defer to outpatient. #5. Chronic anemia/AOCD: Admission Hgb 9.8, baseline prior at discharge 10.7 but the day prior 9.9, vascillates, will continue to closely monitor given reported history of hemoptysis but currently appears baseline. #6. Hypertension: Continue home regimen including metoprolol, oral hydralazine, PRN hydralazine. #7. Hyperlipidemia: Not on statin therapy, allergy reported, encourage continued outpatient follow-up. #8. Diabetes mellitus type II: Hold oral home regimen, continue home insulin regimen, ADA diet, accu checks w/ ISS. #9. PAD, PVD: Noted in history, no specific history of peripheral PCI, currently left lower extremity status post TMA is well-appearing, encourage continued outpatient follow-up with podiatry and if necessary vascular surgery, temporarily holding aspirin given reported hemoptysis but quick restart if hemoglobin remains stable, continue hypertensive regimen, diabetic regimen with alterations as noted, from current list not on statin therapy however allergy reported. #10. DVT prophylaxis: SCDs, holding chemoprophylaxis given acute presentation complaint, initiate if no further hemoptysis and hemoglobin stable especially given recent COVID diagnosis. #11. CODE status: Patient GABINO is his who is present and living will is currently in place. Discussed CODE status at length including difference between FULL code, DNR-CCA and DNR-CC status. Following discussions about the differences in these status, requested after several repeat conversations DNR- CCA, no intubation status. Advanced Care Planning Face to Face Time: 19 minutes. Admission Evaluation Time spent evaluating chart, patient history, patient evaluation, care planning and discussion with specialists: 75 minutes. Charges/Coding Visit Charges Inpatient E&M: 81927 Init Hosp L3 Procedures Hospitalists Procedures: 66169 Advncd Care Plan 30 Min
[2022-03-11 19:42] VITALS: BP 173/79
[2022-03-11 20:09] LABS: Troponin-I HS 30 pg/mL (3.0-78.0)
[2022-03-11 20:13] LABS: BNP,B-Type NATRIURETIC PEPTIDE 250.2 pg/mL (0-100)
[2022-03-11 20:15] LABS: Procalcitonin 0.13 ng/mL (0.00-0.09)
[2022-03-11 20:16] LABS: Ferritin 299 ng/mL (26-388); LDH 141 U/L (87-241)
[2022-03-11 20:27] VITALS: BP 168/78; PULSE 81; RESP 16; TEMP 36.6; O2SAT 97
--- NOTE | 2022-03-11 20:52 | ED.RN ---
AVENUE MADE AWARE OF ADMISSION
[2022-03-11 23:15] VITALS: BMI 28.5
[2022-03-11 23:21] VITALS: BP 153/69; PULSE 64; RESP 16; TEMP 36.7; O2SAT 95
[2022-03-11] MEDS: 0.9% Normal Saline 1,000 ML 100 ML IV (23:52)
[2022-03-11] MEDS: Menthol/Lanolin/Calamine/Znox 113 GM Tube 1 APPLIC TOPICAL (23:53)
[2022-03-11 23:58] VITALS: BP 153/69; PULSE 64
[2022-03-11] MEDS: Doxazosin 1 MG Tablet 2 MG PO (23:58)
[2022-03-11] MEDS: MELATONIN 10 MG TABLET PO (23:58)
[2022-03-11] MEDS: Metoprolol(XL)Succ 25 MG Tablet 12.5 MG PO (23:58)
[2022-03-11] MEDS: QUEtiapine 25 MG Tablet PO (23:58)
[2022-03-11] MEDS: hydrALAZINE 50 MG Tablet PO (23:58)
[2022-03-12] VITALS (11 sets, daily range): BP systolic 139–158; BP diastolic 60–72; PULSE 61–74; RESP 18; TEMP 36.4–36.8; O2SAT 95–96
[2022-03-12] MEDS: Glucerna Shake 120 ML LIQUID PO ×4 (00:02→22:48)
[2022-03-12 00:30] LABS: Bedside Glucose 92 mg/dL (74-106)
[2022-03-12] MEDS: hydrALAZINE 50 MG Tablet PO ×3 (06:51→22:49)
[2022-03-12 07:16] LABS: Bedside Glucose 90 mg/dL (74-106)
[2022-03-12 07:21] LABS: Absolute Lymphocyte Count 1.53 X10^3/uL (0.83-4.51); Absolute Neutrophil Count 4.5 X10^3/uL (2.0-7.7); Basophil# 0.04 X10^3/uL; Basophil% 0.6 % (0-1); Eosinophils% 1.5 % (0-5); Hematocrit 27.1 % (40-54); Lymphocyte # 1.53 X10^3/ul (0.83-4.51); Lymphocyte % 22.8 % (19-41); Mean Corp Hgb Conc 33.2 g/dL (32-36); Mean Corpuscular Hgb 28.6 pg (27.0-32.0); Mean Platelet Vol. 9.2 fl (6.2-12.0); Monocyte# 0.48 X10^3/uL; Monocyte% 7.2 % (0-10); NRBC Flagged by Analyzer 0 % (0-5); Neutrophil # 4.54 X10^3/uL (2.7-7.7); Neutrophil % 67.6 % (47-70); Platelet Count 285 K/mm3 (150-450); RBC Distribution Width CV 13.2 % (11.6-14.6); RBC Distribution Width SD 41.3 fl (35.1-43.9); Red Blood Count 3.15 M/mm3 (4.6-6.2); White Blood Count 6.7 K/mm3 (4.4-11.0)
[2022-03-12 07:50] LABS: ALB/GLOB Ratio 0.4 RATIO (0.9-2.4); AST(SGOT) 15 U/L (15-37); Alanine Aminotransfer ALT/SGPT 17 U/L (16-61); Albumin, Serum 1.8 g/dL (3.2-5.0); Alkaline Phosphatase 121 U/L (45-117); Anion Gap 8 (5-15); BUN 41 mg/dL (7-18); BUN/Creat Ratio 16.7 RATIO (10-20); Calcium,Total 8.3 mg/dL (8.5-10.1); Chloride 113 mmol/L (98-107); Creatinine, Serum 2.45 mg/dL (0.70-1.30); EST Glomerular Filtration Rate 27 mL/min (>60); Est Glom Filt Rate - Afr Amer 33 mL/min (>60); Estimated Creatinine Clearance 24.42 ml/min; Glucose 96 mg/dL (74-106); Potassium 3.7 mmol/L (3.5-5.1); Protein, Total 6.8 g/dL (6.4-8.2); Sodium Level 144 mmol/L (136-145)
--- NOTE | 2022-03-12 08:31 | PN.HOSP_ITS ---
Subjective Subjective Follow-up hemoptysis Patient is an 81-year-old gentleman recently diagnosed with COVID-19 presented to the emergency department with increasing shortness of breath as well as hemoptysis. Admitted to regular nursing floor for further management Objective Data Objective Data Vital Signs: Vital Signs Temp Pulse Resp BP Pulse Ox O2 Del Method 97.8 F 61 18 152/71 H 95 Room Air 03/12/22 06:49 03/12/22 06:51 03/12/22 06:49 03/12/22 06:51 03/12/22 08:09 03/12/22 08:09 Oxygen Delivery Method Room Air Weight: 90.2 kg Body Mass Index (BMI) 28.5 Intake & Output: Intake and Output for Last 24 Hours 03/10/22 03/11/22 03/12/22 23:59 23:59 23:59 Intake Total 713.33 / 713.33 Balance 713.33 / 713.33 Lab / Micro Data Result Diagrams: 03/12/22 06:55 03/12/22 06:55 Labs: Laboratory Results - last 24 hr 03/11/22 18:30: WBC 8.0, RBC 3.46 L, Hgb 9.8 L, Hct 29.8 L, MCV 86.1, MCH 28.3, MCHC 32.9, RDW Std Deviation 40.6, RDW Coeff of Kelsey 13.1, Plt Count 307, MPV 8.8, Immature Gran % (Auto) 0.400, Neut % (Auto) 68.1, Lymph % (Auto) 23.2, [place] % (Auto) 6.8, Eos % (Auto) 1.1, Baso % (Auto) 0.4, Absolute Neuts (auto) 5.5, Absolute Lymphs (auto) 1.86, Nucleated RBC % 0 03/11/22 18:30: Sodium 143, Potassium 3.6, Chloride 112 H, Carbon Dioxide 24.0, Anion Gap 7, BUN 42 H, Creatinine 2.55 H, Estim Creat Clear Calc 23.46, Est GFR (MDRD) Af Amer 31 L, Est GFR (MDRD) Non-Af 26 L, BUN/Creatinine Ratio 16.5, Glucose 112 H, Calcium 8.6 03/11/22 18:30: Troponin I High Sens 30 03/11/22 18:30: Ferritin 299, Lactate Dehydrogenase 141, C-React Prot Ext Range 67.00 H 03/11/22 18:30: B-Natriuretic Peptide 250.2 H 03/11/22 18:30: Procalcitonin 0.13 H 03/11/22 23:49: POC Glucose 92 03/12/22 06:48: POC Glucose 90 03/12/22 06:55: WBC 6.7, RBC 3.15 L, Hgb 9.0 L, Hct 27.1 L, MCV 86.0, MCH 28.6, MCHC 33.2, RDW Std Deviation 41.3, RDW Coeff of [place] 13.2, Plt Count 285, MPV 9.2, Immature Gran % (Auto) 0.300, Neut % (Auto) 67.6, Lymph % (Auto) 22.8, [place] % (Auto) 7.2, Eos % (Auto) 1.5, Baso % (Auto) 0.6, Absolute Neuts (auto) 4.5, Absolute Lymphs (auto) 1.53, Nucleated RBC % 0 03/12/22 06:55: Sodium 144, Potassium 3.7, Chloride 113 H, Carbon Dioxide 23.0, Anion Gap 8, BUN 41 H, Creatinine 2.45 H, Estim Creat Clear Calc 24.42, Est GFR (MDRD) Af Amer 33 L, Est GFR (MDRD) Non-Af 27 L, BUN/Creatinine Ratio 16.7, Glucose 96, Calcium 8.3 L, Total Bilirubin 0.30, AST 15, ALT 17, Alkaline Phosphatase 121 H, Total Protein 6.8, Albumin 1.8 L, Globulin 5.0 H, Al bumin/Globulin Ratio 0.4 L Radiography Diagnostic Testing: Radiology Impression Venous Duplex 03/11/22 18:13 IMPRESSION: No sonographic evidence of deep venous thrombosis. Electronically Signed: Arthur Houser MD at 20:33 EST , Chest X-Ray 03/11/22 19:00 IMPRESSION: No acute radiographic abnormalities. Bilateral calcified pleural plaques. Chronic elevation of the right hemidiaphragm. Electronically Signed: Arthur Houser MD at 19:45 EST , Physical Exam Narrative GENERAL: cooperative HEENT: Atraumatic; normocephalic EYES; Anicteric, Normal Conjunctiva NECK; supple, normal thyroid, RESPIRATORY: Diminished to auscultation CARDIOVASCULAR: Regular S1 S2, GI: soft, normoactive bowel sounds, : No Renal angle tenderness; EXTREMITIES: Left foot in surgical dressing MUSCULOSKELETAL: no muscle wasting NEURO: Awake; no lateralizing signs. SKIN: No Rash PSYCH; Flat affect Assessment & Plan Assessment/Plan (1) COVID-19: PLAN: Plan Patient is an 81-year-old gentleman recently diagnosed with COVID-19 presented to the emergency department with increasing shortness of breath as well as hemoptysis. Admitted to regular nursing floor for further management 1. Hemoptysis ? Possibly related to COVID 19 bronchitis. Patient has been admitted to regular nursing floor for symptom management 2. 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 On account of diabetic foot infected ulcer with MRSA. Patient was discharged on daptomycin plan is to continue 3. 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 Consult subsequently placed to nephrology. Ordered renal ultrasound. Also ordered daily BMPs for follow-up 4. Coronary artery disease ? With previous CABG and subsequent PCI. Stable 5. Diabetes mellitus type II -Placed on long acting insulin, Accu-Cheks a.c. and at bedtime and covered with sliding scale insulin. Patient blood glucose control remains labile plan is to adjust doses of his long-acting insulin if needed 6. Hypertension - Blood pressure controlled, home medications continued with dose adjustment as needed 7. Peripheral vascular disease ? Stable 8. Restless leg syndrome ? Per history 9. Anemia - Secondary to chronic disorder monitoring H&H and transfuse if patient becomes symptomatic or hemoglobin falls below 7 10. DVT prophylaxis ? Held off initiating chemoprophylaxis in view of patient hemoptysis Time spent in the patient's overall evaluation,decision-making process, review of diagnostic data, adjustment of management, discussion with other providers, nursing nursing and ancillary staff involved in patient's care documentation, 40 Minutes Charges/Coding Visit Charges Inpatient E&M: 54819 Subs Hosp L2
--- NOTE | 2022-03-12 08:54 | WOUNDNOTE ---
wound photo: left foot
--- NOTE | 2022-03-12 08:55 | WOUNDNOTE ---
wound photo: left foot
--- NOTE | 2022-03-12 09:36 | CASEMGMT ---
Addendum entered by Idalmis Eller 03/12/22 14:24: Error in [facility] for pt referral. SW sent new referral with PT and OT evals so that new precert can be obtained for pt to return to [facility]. LUCAS Yanez Original Note: Social Work SW informed by MD Henley that pt is medically stable and ready to return to [facility]. SW called [facility] and inquired on if pt will need new precert. Tiny at [facility] informed since pt was admitted will need new precert. SW inquired with pt regarding return to [facility]. Pt agreeable, declined new SNF list. [facility] MD Henley updated that pt cannot discharge until new precert is obtained. LUCAS Yanez
[2022-03-12] MEDS: Juven (unflavored) Packet 1 PACKET PO ×2 (09:39→16:44)
[2022-03-12] MEDS: Metoprolol(XL)Succ 25 MG Tablet 12.5 MG PO ×2 (09:39→22:50)
[2022-03-12] MEDS: Doxazosin 1 MG Tablet 2 MG PO ×2 (09:40→22:49)
[2022-03-12] MEDS: Insulin Glargine-YFGN 100 UNIT/ML Pen 20 UNIT SC ×2 (09:40→22:45)
[2022-03-12] MEDS: Calcium Carb/Vitamin D 1 TABLET Tablet PO (09:40)
[2022-03-12] MEDS: Menthol/Lanolin/Calamine/Znox 113 GM Tube 1 APPLIC TOPICAL ×4 (09:40→22:47)
[2022-03-12] MEDS: Multivitamins,Ther W-Minerals Tablet 1 TABLET PO (09:40)
[2022-03-12] MEDS: Insulin Lispro 100 UNIT/ML INSULN.PEN SC ×3 (11:59→22:46)
[2022-03-12 12:30] LABS: Bedside Glucose 184 mg/dL (74-106)
[2022-03-12] MEDS: Ondansetron 4 MG/2 ML Vial IV (15:20)
[2022-03-12] MEDS: 0.9% Saline Lock 10 ML Syringe IV ×2 (15:20→22:48)
--- NOTE | 2022-03-12 15:50 | CASEMGMT ---
TIFFANY CM in to discuss MULLINS form with patient. RN CM explained MULLINS form, patient voiced understanding. Pt signed form and filed in chart. Pt provided with a copy of signed MULLINS form. Patient had no further questions or concerns at this time.
[2022-03-12 17:05] LABS: Bedside Glucose 235 mg/dL (74-106)
[2022-03-12] MEDS: MELATONIN 10 MG TABLET PO (22:49)
[2022-03-12] MEDS: QUEtiapine 25 MG Tablet PO (22:49)
[2022-03-12 23:21] LABS: Bedside Glucose 285 mg/dL (74-106)
[2022-03-13] VITALS (7 sets, daily range): BP systolic 126–131; BP diastolic 50–52; PULSE 58–70; RESP 16; TEMP 36.3–36.6; O2SAT 93–96
[2022-03-13 06:07] LABS: Absolute Lymphocyte Count 1.65 X10^3/uL (0.83-4.51); Absolute Neutrophil Count 4.9 X10^3/uL (2.0-7.7); Basophil# 0.02 X10^3/uL; Basophil% 0.3 % (0-1); Eosinophil# 0.07 X10^3/uL; Hematocrit 26.3 % (40-54); Hemoglobin 8.6 g/dL (13.0-16.5); Lymphocyte # 1.65 X10^3/ul (0.83-4.51); Lymphocyte % 23.1 % (19-41); Mean Corp Hgb Conc 32.7 g/dL (32-36); Mean Corpuscular Hgb 28.5 pg (27.0-32.0); Mean Corpuscular Volume 87.1 fL (80-94); Mean Platelet Vol. 9.1 fl (6.2-12.0); NRBC Flagged by Analyzer 0 % (0-5); Neutrophil # 4.88 X10^3/uL (2.7-7.7); Neutrophil % 68.2 % (47-70); Platelet Count 279 K/mm3 (150-450); RBC Distribution Width CV 13.4 % (11.6-14.6); RBC Distribution Width SD 42.5 fl (35.1-43.9); Red Blood Count 3.02 M/mm3 (4.6-6.2); White Blood Count 7.2 K/mm3 (4.4-11.0)
[2022-03-13] MEDS: hydrALAZINE 50 MG Tablet PO ×2 (06:32→13:57)
[2022-03-13 06:33] LABS: Anion Gap 5 (5-15); BUN 57 mg/dL (7-18); BUN/Creat Ratio 19.1 RATIO (10-20); Calcium,Total 8.2 mg/dL (8.5-10.1); Chloride 116 mmol/L (98-107); Creatinine, Serum 2.98 mg/dL (0.70-1.30); EST Glomerular Filtration Rate 22 mL/min (>60); Est Glom Filt Rate - Afr Amer 26 mL/min (>60); Estimated Creatinine Clearance 20.07 ml/min; Glucose 145 mg/dL (74-106); Magnesium 1.8 mg/dL (1.6-2.6); Phosphorus 3.9 mg/dL (2.5-4.9); Sodium Level 147 mmol/L (136-145)
[2022-03-13 07:01] LABS: Bedside Glucose 142 mg/dL (74-106)
[2022-03-13] MEDS: Doxazosin 1 MG Tablet 2 MG PO ×2 (08:45→08:46)
[2022-03-13] MEDS: Juven (unflavored) Packet 1 PACKET PO (08:45)
[2022-03-13] MEDS: Metoprolol(XL)Succ 25 MG Tablet 12.5 MG PO (08:45)
[2022-03-13] MEDS: Menthol/Lanolin/Calamine/Znox 113 GM Tube 1 APPLIC TOPICAL ×2 (08:46→13:58)
[2022-03-13] MEDS: Calcium Carb/Vitamin D 1 TABLET Tablet PO (08:46)
[2022-03-13] MEDS: Multivitamins,Ther W-Minerals Tablet 1 TABLET PO (08:46)
[2022-03-13] MEDS: Acetaminophen 325 MG Tablet 650 MG PO (08:46)
[2022-03-13] MEDS: Insulin Glargine-YFGN 100 UNIT/ML Pen 20 UNIT SC (08:48)
--- NOTE | 2022-03-13 09:03 | PCM.PN.HOSP ---
Subjective Subjective Follow-up recent COVID-pneumonia with hypoxia Patient seen, Currently off oxygen hemoglobin however trending down. Objective Data Objective Data Vital Signs: Vital Signs Temp Pulse Resp BP Pulse Ox O2 Del Method 97.8 F 62 16 126/50 H 95 Room Air 03/13/22 08:55 03/13/22 08:55 03/13/22 08:55 03/13/22 08:55 03/13/22 08:55 03/13/22 08:55 Oxygen Delivery Method Room Air Weight: 90.401 kg Body Mass Index (BMI) 28.5 Intake & Output: Intake and Output for Last 24 Hours 03/11/22 03/12/22 03/13/22 23:59 23:59 23:59 Intake Total 1013.33 / 1013.33 200 / 200 Output Total 400 / 400 Balance 613.33 / 613.33 200 / 200 Lab / Micro Data Result Diagrams: 03/13/22 05:54 03/13/22 05:54 Labs: Laboratory Results - last 24 hr 03/12/22 11:57: POC Glucose 184 H 03/12/22 16:44: POC Glucose 235 H 03/12/22 22:36: POC Glucose 285 H 03/13/22 05:54: WBC 7.2, RBC 3.02 L, Hgb 8.6 L, Hct 26.3 L, MCV 87.1, MCH 28.5, MCHC 32.7, RDW Std Deviation 42.5, RDW Coeff of Kelsey 13.4, Plt Count 279, MPV 9.1, Immature Gran % (Auto) 0.400, Neut % (Auto) 68.2, Lymph % (Auto) 23.1, [place] % (Auto) 7.0, Eos % (Auto) 1.0, Baso % (Auto) 0.3, Absolute Neuts (auto) 4.9, Absolute Lymphs (auto) 1.65, Nucleated RBC % 0 03/13/22 05:54: Sodium 147 H, Potassium 4.0, Chloride 116 H, Carbon Dioxide 26.0, Anion Gap 5, BUN 57 H, Creatinine 2.98 H, Estim Creat Clear Calc 20.07, Est GFR (MDRD) Af Amer 26 L, Est GFR (MDRD) Non-Af 22 L, BUN/Creatinine Ratio 19.1, Glucose 145 H, Calcium 8.2 L, Phosphorus 3.9, Magnesium 1.8 03/13/22 06:22: POC Glucose 142 H Micro: Microbiology 03/12/22 01:35 Mucosa - Nasopharyngeal Respiratory Panel (PCR) - Final Physical Exam Narrative GENERAL: cooperative HEENT: Atraumatic; normocephalic EYES; Anicteric, Normal Conjunctiva NECK; supple, normal thyroid, RESPIRATORY: Diminished to auscultation CARDIOVASCULAR: Regular S1 S2, GI: soft, normoactive bowel sounds, : No Renal angle tenderness; EXTREMITIES: Left foot in surgical dressing MUSCULOSKELETAL: no muscle wasting NEURO: Awake; no lateralizing signs. SKIN: No Rash PSYCH; Flat affect Assessment & Plan Assessment/Plan (1) COVID-19: PLAN: Plan Patient is an 81-year-old gentleman recently diagnosed with COVID-19 presented to the emergency department with increasing shortness of breath as well as hemoptysis. Admitted to regular nursing floor for further management 1. Hemoptysis ? Possibly related to COVID 19 bronchitis. Patient has been admitted to regular nursing floor for symptom management ? 03/13/2022; no recurrence of hemoptysis 2. 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 On account of diabetic foot infected ulcer with MRSA. Patient was discharged on daptomycin plan is to continue 3. 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 Consult subsequently placed to nephrology. Ordered renal ultrasound. Also ordered daily BMPs for follow-up 4. Coronary artery disease ? With previous CABG and subsequent PCI. Stable 5. Diabetes mellitus type II -Placed on long acting insulin, Accu-Cheks a.c. and at bedtime and covered with sliding scale insulin. Patient blood glucose control remains labile plan is to adjust doses of his long-acting insulin if needed 6. Hypertension - Blood pressure controlled, home medications continued with dose adjustment as needed 7. Peripheral vascular disease ? Stable 8. Restless leg syndrome ? Per history 9. Anemia - Secondary to chronic disorder as well as acute blood loss anemia from hemoptysis monitoring H&H and transfuse if patient becomes symptomatic or hemoglobin falls below 7 ? 03/13/2022; hemoglobin down to 8.6. Patient hemoptysis might of contributed to his low hemoglobin. No criteria for blood transfusion at this point 10. DVT prophylaxis ? Held off initiating chemoprophylaxis in view of patient hemoptysis 11. Physical deconditioning - Requested for PT OT eval and social science research assistant to assist with discharge planning Time spent in the patient's overall evaluation,decision-making process, review of diagnostic data, adjustment of management, discussion with other providers, nursing nursing and ancillary staff involved in patient's care documentation, 40 Minutes Charges/Coding Visit Charges Inpatient E&M: 20265 Subs Hosp L2
[2022-03-13] MEDS: Glucerna Shake 120 ML LIQUID PO (10:51)
--- NOTE | 2022-03-13 10:59 | TREXTCAR_ITS ---
Diet Diet Order/Speech Therapy: 03/11/22 22:17 Diet: Consistent Carb - Calorie Controlled Food consistency:: Regular Liquid Consistency:: Regular/Thin How many daily calories?: 1800 calorie Diet: Renal - General Food consistency:: Regular Liquid Consistency:: Regular/Thin Wound(s) left foot: Wound Type: surgical incision s/p recent transmetatarsal amputation Dressing Change: betadine/Adaptic Therapies Weight Bearing: Non weight bearing Physical Therapy: Eval and Treat Occupational Therapy: Eval and Treat Problem/Diagnosis (1) COVID-19: Status: Acute Code(s): U07.1 - COVID-19 Plan Patient is an 81-year-old gentleman recently diagnosed with COVID-19 presented to the emergency department with increasing shortness of breath as well as hemo ptysis. Admitted to regular nursing floor for further management 1. Hemoptysis ? Possibly related to COVID 19 bronchitis. Patient has been admitted to regular nursing floor for symptom management ? 03/13/2022; no recurrence of hemoptysis 2. 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 On account of diabetic foot infected ulcer with MRSA. Patient was discharged on daptomycin plan is to continue 3. 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 Consult subsequently placed to nephrology. Ordered renal ultrasound. Also ordered daily BMPs for follow-up 4. Coronary artery disease ? With previous CABG and subsequent PCI. Stable 5. Diabetes mellitus type II -Placed on long acting insulin, Accu-Cheks a.c. and at bedtime and covered with sliding scale insulin. Patient blood glucose control remains labile plan is to adjust doses of his long-acting insulin if needed 6. Hypertension - Blood pressure controlled, home medications continued with dose adjustment as needed 7. Peripheral vascular disease ? Stable 8. Restless leg syndrome ? Per history 9. Anemia - Secondary to chronic disorder as well as acute blood loss anemia from hemoptysis monitoring H&H and transfuse if patient becomes symptomatic or hemoglobin falls below 7 ? 03/13/2022; hemoglobin down to 8.6. Patient hemoptysis might of contributed to his low hemoglobin. No criteria for blood transfusion at this point 10. DVT prophylaxis ? Held off initiating chemoprophylaxis in view of patient hemoptysis 11. Physical deconditioning - Requested for PT OT eval and social security assessor to assist with discharge planning Time spent in the patient's overall evaluation,decision-making process, review of diagnostic data, adjustment of management, discussion with other providers, nursing nursing and ancillary staff involved in patient's care documentation, 40 Minutes Allergies/Procedures Done in Hospital Allergies glyburide Allergy (Intermediate, Verified 03/11/22:54) Unknown Iodinated Contrast Media [CONTRASTS] Allergy (Verified 03/11/22:) Rash amlodipine [From Norvasc] Adverse Reaction (Unknown, Verified 03/11/22) Unknown atorvastatin [From Lipitor] Adverse Reaction (Unknown, Verified 03/11/22) Unknown cerivastatin [From Baycol] Adverse Reaction (Unknown, Verified 03/11/22) Unknown enalapril Adverse Reaction (Unknown, Verified 03/11/22) Unknown exenatide [From Byetta] Adverse Reaction (Unknown, Verified 03/11/22) Unknown ezetimibe [From Zetia] Adverse Reaction (Unknown, Verified 03/11/22) Unknown fenofibrate [From Tricor] Adverse Reaction (Unknown, Verified 03/11/22) Unknown gemfibrozil Adverse Reaction (Unknown, Verified 03/11/22:) Unknown glipizide [From Glucotrol] Adverse Reaction (Unknown, Verified 03/11/22) Unknown labetalol Adverse Reaction (Unknown, Verified 03/11/22:) Unknown lovastatin [From Mevacor] Adverse Reaction (Unknown, Verified 03/11/22) Unknown metformin [From Glucophage] Adverse Reaction (Unknown, Verified 03/11/2254) Unknown niacin [From Niaspan Extended-Release] Adverse Reaction (Unknown, Verified 03/11/22:) Unknown nifedipine [From Adalat] Adverse Reaction (Unknown, Verified 03/11/22) Unknown quinapril [From Accupril] Adverse Reaction (Unknown, Verified 03/11/22) Unknown repaglinide [From Prandin] Adverse Reaction (Unknown, Verified 03/11/22 17:54) Unknown rosuvastatin [From Crestor] Adverse Reaction (Unknown, Verified 01/09/23 17:54) Unknown simvastatin [From Zocor] Adverse Reaction (Unknown, Verified 03/11/22 17:54) Unknown Type of Care/Length of Stay Estimated LOS: Convalescent Care Less Than 30 days Type of Care Needed: Skilled Rehab Potential: Good Prognosis: Good Additional Orders/Day of Discharge Day of Discharge: 03/13/22 Discharge Plan Admission Admit Date/Time: 03/11/22 19:32 Attending Provider: Quique Henley Primary Care Provider: Nawaf Villaseñor Consulting Providers: Keisha Wilkins Discharge Orders/Prescriptions Prescriptions: Continued (DME) pen needle, diabetic [BD Ultra-Fine Sammie Pen Needle] 32 gauge x 5/32 needle See Rx Instructions .ROUTE .MEDSUPPLY Qty: 150 6RF Rx Instructions: 5 times daily (DME) Accu-Chek Guide test strips Strip See Rx Instructions .Route Qty: 100 6RF Rx Instructions: three times daily sodium chloride 0.9 % (flush) [BD PosiFlush Normal Saline 0.9] Syringe 10 - 40 ml IV UD PRN (Reason: Saline Flush) Qty: 0 0RF omega-3 fatty acids 1,000 mg Capsule 1,000 mg PO BID calcium carbonate-vitamin D3 600 mg-5 mcg (200 unit) Tablet 1 tab PO DAILY pyridoxine (vitamin B6) [Vitamin B-6] 50 mg Tablet 50 mg PO DAILY multivitamin with minerals Tablet 1 tab PO DAILY insulin lispro 100 unit/mL Insulin Pen See Protocol SUBCUT UD Protocol: 6. Sliding Scale Insulin Custom Condition: mg/dl range Dose/Route: Number of Units Condition: 150-199 Dose/Route: 2 Condition: 200-249 Dose/Route: 4 Condition: 250-324 Dose/Route: 6 Condition: 325-374 Dose/Route: 8 Condition: 375-409 Dose/Route: 10 Condition: 410-449 Dose/Route: 11 Protocol Text: Custom Sliding Scale Silviano 7-7-1.5 gram Powder In Packet 1 ea PO BID quetiapine 25 mg tablet 25 mg PO QHS acetaminophen [Tylenol] 325 mg tablet 650 mg PO Q6H PRN (Reason: Pain) hydralazine 50 mg tablet 50 mg PO TID insulin lispro [Humalog KwikPen Insulin] 100 unit/mL insulin pen See Protocol subcut ACHS Protocol: 4. Sliding Scale Insulin High-Med Dosing Condition: 150-199 mg/dl = 2 units Condition: 200-259 mg/dl = 4 units Condition: 260-324 mg/dl = 6 units Condition: 325-374 mg/dl = 8 units Condition: 375-409 mg/dl = 10 units Condition: 410-449 mg/dl = 11 units Condition: Greater than 449 call physician Protocol Text: - Use for Total Daily Dose of Insulin 56-80 units - Patient who are insulin resistant or septic HIGH MEDIUM DOSING ALGORITHM daptomycin 500 mg recon soln 550 mg IV Q48 melatonin 10 mg tablet, sublingual 10 mg PO QHS insulin glargine-yfgn 100 unit/mL (3 mL) insulin pen 20 unit subcut BID metoprolol succinate 25 mg tablet extended release 24 hr 12.5 mg PO BID Label Comments: TAKE 1 TABLET BY MOUTH ONCE DAILY doxazosin 2 mg tablet 2 mg PO BID Qty: 180 3RF Referrals / Follow Up: Nawaf Villaseñor MD [Primary Care Provider] - Disposition Disposition (needs filled in before D/C Order can be placed): Longterm Facility
[2022-03-13] MEDS: Insulin Lispro 100 UNIT/ML INSULN.PEN SC (11:01)
--- NOTE | 2022-03-13 11:02 | PCM.DC.SUM ---
Providers Date of Admission: 03/11/22 Date of Discharge: 03/13/22 Primary Care Physician: Dr. Nawaf Villaseñor MD Consultations 03/12/22 08:57 Consult: Onc/Wound/pigeon fancier Routine Comment: Reason for Consult:: left foot Reason For Visit: RECENT COVID DX,HEMOPTYSIS Diagnosis Discharge Diagnosis (1) COVID-19: Status: Acute Code(s): U07.1 - COVID-19 Plan Patient is an 81-year-old gentleman recently diagnosed with COVID-19 presented to the emergency department with increasing shortness of breath as well as hemoptysis. Admitted to regular nursing floor for further management 1. Hemoptysis ? Possibly related to COVID 19 bronchitis. Patient has been admitted to regular nursing floor for symptom management ? 03/13/2022; no recurrence of hemoptysis 2. 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 On account of diabetic foot infected ulcer with MRSA. Patient was discharged on daptomycin plan is to continue 3. 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 Consult subsequently placed to nephrology. Ordered renal ultrasound. Also ordered daily BMPs for follow-up 4. Coronary artery disease ? With previous CABG and subsequent PCI. Stable 5. Diabetes mellitus type II -Placed on long acting insulin, Accu-Cheks a.c. and at bedtime and covered with sliding scale insulin. Patient blood glucose control remains labile plan is to adjust doses of his long-acting insulin if needed 6. Hypertension - Blood pressure controlled, home medications continued with dose adjustment as needed 7. Peripheral vascular disease ? Stable 8. Restless leg syndrome ? Per history 9. Anemia - Secondary to chronic disorder as well as acute blood loss anemia from hemoptysis monitoring H&H and transfuse if patient becomes symptomatic or hemoglobin falls below 7 ? 03/13/2022; hemoglobin down to 8.6. Patient hemoptysis might of contributed to his low hemoglobin. No criteria for blood transfusion at this point 10. DVT prophylaxis ? Held off initiating chemoprophylaxis in view of patient hemoptysis 11. Physical deconditioning - Requested for PT OT eval and social media senior associate to assist with discharge planning Time spent in the patient's overall evaluation,decision-making process, review of diagnostic data, adjustment of management, discussion with other providers, nursing nursing and ancillary staff involved in patient's care documentation, 38 Minutes Medications at Discharge Home Medications doxazosin 2 mg tablet 2 mg PO BID prostate #180 tabs 10/05/20 blood sugar diagnostic (Accu-Chek Guide test strips) #100 ea 12/18/21 pen needle, diabetic 32 gauge x 5/32 (BD Ultra-Fine Sammie Pen Needle) #150 ea 12/18/21 sodium chloride 0.9 % (flush) (BD PosiFlush Normal Saline 0.9 % injection syringe) 10 - 40 ml IV UD PRN Saline Flush #0 mL 03/08/22 acetaminophen 325 mg tablet (Tylenol) 650 mg PO Q6H PRN Pain 03/11/22 arginine 7 gram-glutamine 7 gram-calcium HMB 1.5 gram oral powder pack (Silviano) 1 ea PO BID SUPPLEMENT 03/11/22 calcium carbonate 600 mg-vitamin D3 5 mcg (200 unit) tablet 1 tab PO DAILY SUPPLEMENT 03/11/22 daptomycin 500 mg intravenous solution 550 mg IV Q48 INFECTION 03/11/22 hydralazine 50 mg tablet 50 mg PO TID BLOOD PRESSURE 03/11/22 insulin glargine-yfgn 100 unit/mL (3 mL) subcutaneous pen 20 unit subcut BID DIABETES 03/11/22 insulin lispro 100 unit/mL subcutaneous pen See Protocol subcut UD 03/11/22 insulin lispro 100 unit/mL subcutaneous pen (Humalog KwikPen (U-100) Insulin) See Protocol subcut ACHS DIABETES 03/11/22 melatonin 10 mg sublingual tablet 10 mg PO QHS SLEEP 03/11/22 metoprolol succinate 25 mg tablet,extended release 24 hr 12.5 mg PO BID BLOOD PRESSURE 03/11/22 multivitamin with minerals 1 tab PO DAILY SUPPLEMENT 03/11/22 omega-3 fatty acids 1,000 mg capsule 1,000 mg PO BID SUPPLEMENT 03/11/22 pyridoxine (vitamin B6) 50 mg tablet (Vitamin B-6) 50 mg PO DAILY SUPPLEMENT 03/11/22 quetiapine 25 mg tablet 25 mg PO QHS SLEEP 03/11/22 Hospital Course Summary of Care Provided Minutes Spent on Discharge: 38 Physical Exam Narrative GENERAL: cooperative HEENT: Atraumatic; normocephalic EYES; Anicteric, Normal Conjunctiva NECK; supple, normal thyroid, RESPIRATORY: Diminished to auscultation CARDIOVASCULAR: Regular S1 S2, GI: soft, normoactive bowel sounds, : No Renal angle tenderness; EXTREMITIES: Left foot in surgical dressing MUSCULOSKELETAL: no muscle wasting NEURO: Awake; no lateralizing signs. SKIN: No Rash PSYCH; Flat affect Weight / BMI Weight Weight: 90.401 kg Body Mass Index (BMI) 28.5 ABG / Lab / Microbiology Data Result Diagrams: 03/13/22 05:54 03/13/22 05:54 Laboratory: Laboratory Results - last 24 hr 03/12/22 11:57: POC Glucose 184 H 03/12/22 16:44: POC Glucose 235 H 03/12/22 22:36: POC Glucose 285 H 03/13/22 05:54: WBC 7.2, RBC 3.02 L, Hgb 8.6 L, Hct 26.3 L, MCV 87.1, MCH 28.5, MCHC 32.7, RDW Std Deviation 42.5, RDW Coeff of Kelsey 13.4, Plt Count 279, MPV 9.1, Immature Gran % (Auto) 0.400, Neut % (Auto) 68.2, Lymph % (Auto) 23.1, [place] % (Auto) 7.0, Eos % (Auto) 1.0, Baso % (Auto) 0.3, Absolute Neuts (auto) 4.9, Absolute Lymphs (auto) 1.65, Nucleated RBC % 0 03/13/22 05:54: Sodium 147 H, Potassium 4.0, Chloride 116 H, Carbon Dioxide 26.0, Anion Gap 5, BUN 57 H, Creatinine 2.98 H, Estim Creat Clear Calc 20.07, Est GFR (MDRD) Af Amer 26 L, Est GFR (MDRD) Non-Af 22 L, BUN/Creatinine Ratio 19.1, Glucose 145 H, Calcium 8.2 L, Phosphorus 3.9, Magnesium 1.8 03/13/22 06:22: POC Glucose 142 H Microbiology: Microbiology 03/12/22 01:25 Sputum, Expectorated/Coughed Gram Stain - Final 03/12/22 01:35 Mucosa - Nasopharyngeal Respiratory Panel (PCR) - Final D/C Instructions Discharge Diet: 1800 Calorie Control Diet Discharge Activity: Return to Normal Activity Call your doctor if you observe: Fever of 101 or Higher, Shortness of breath, Fainting spells and Chest pain Meaningful Use Info Meaningful Use Diagnoses (Choose all that apply): None applicable Discharge Plan Admission Admit Date/Time: 03/11/22 19:32 Attending Provider: Quique Henley Primary Care Provider: Nawaf Villaseñor Consulting Providers: Keisha Wilkins Discharge Orders/Prescriptions Prescriptions: Continued (DME) pen needle, diabetic [BD Ultra-Fine Sammie Pen Needle] 32 gauge x 5/32 needle See Rx Instructions .ROUTE .MEDSUPPLY Qty: 150 6RF Rx Instructions: 5 times daily (DME) Accu-Chek Guide test strips Strip See Rx Instructions .Route Qty: 100 6RF Rx Instructions: three times daily sodium chloride 0.9 % (flush) [BD PosiFlush Normal Saline 0.9] Syringe 10 - 40 ml IV UD PRN (Reason: Saline Flush) Qty: 0 0RF omega-3 fatty acids 1,000 mg Capsule 1,000 mg PO BID calcium carbonate-vitamin D3 600 mg-5 mcg (200 unit) Tablet 1 tab PO DAILY pyridoxine (vitamin B6) [Vitamin B-6] 50 mg Tablet 50 mg PO DAILY multivitamin with minerals Tablet 1 tab PO DAILY insulin lispro 100 unit/mL Insulin Pen See Protocol SUBCUT UD Protocol: 6. Sliding Scale Insulin Custom Condition: mg/dl range Dose/Route: Number of Units Condition: 150-199 Dose/Route: 2 Condition: 200-249 Dose/Route: 4 Condition: 250-324 Dose/Route: 6 Condition: 325-374 Dose/Route: 8 Condition: 375-409 Dose/Route: 10 Condition: 410-449 Dose/Route: 11 Protocol Text: Custom Sliding Scale Silviano 7-7-1.5 gram Powder In Packet 1 ea PO BID quetiapine 25 mg tablet 25 mg PO QHS acetaminophen [Tylenol] 325 mg tablet 650 mg PO Q6H PRN (Reason: Pain) hydralazine 50 mg tablet 50 mg PO TID insulin lispro [Humalog KwikPen Insulin] 100 unit/mL insulin pen See Protocol subcut ACHS Protocol: 4. Sliding Scale Insulin High-Med Dosing Condition: 150-199 mg/dl = 2 units Condition: 200-259 mg/dl = 4 units Condition: 260-324 mg/dl = 6 units Condition: 325-374 mg/dl = 8 units Condition: 375-409 mg/dl = 10 units Condition: 410-449 mg/dl = 11 units Condition: Greater than 449 call physician Protocol Text: - Use for Total Daily Dose of Insulin 56-80 units - Patient who are insulin resistant or septic HIGH MEDIUM DOSING ALGORITHM daptomycin 500 mg recon soln 550 mg IV Q48 melatonin 10 mg tablet, sublingual 10 mg PO QHS insulin glargine-yfgn 100 unit/mL (3 mL) insulin pen 20 unit subcut BID metoprolol succinate 25 mg tablet extended release 24 hr 12.5 mg PO BID Label Comments: TAKE 1 TABLET BY MOUTH ONCE DAILY doxazosin 2 mg tablet 2 mg PO BID Qty: 180 3RF Referrals / Follow Up: Nawaf Villaseñor MD [Primary Care Provider] - Disposition Disposition (needs filled in before D/C Order can be placed): Long-Term Facility Charges/Coding Visit Charges Inpatient E&M: 81790 Disch Hosp >30min
[2022-03-13 11:46] LABS: Bedside Glucose 187 mg/dL (74-106)
--- NOTE | 2022-03-13 14:01 | CASEMGMT ---
Social Work? JAZMÍN notified pt of discharge back to [facility] today. SW confirmed [facility] was not needed with [facility] at [facility]. Set up wheelchair transportation [facility] for 3:00pm. JAZMÍN faxed all discharge orders to [facility] via [facility] and notified of discharge time. SW notified pt nurse of transport time. JAZMÍN made copies of discharge orders and placed on pt chart. Sent original orders in envelope with pt upon discharge.?? Disposition: [facility], skilled, convalescent, level of care. LUCAS Yanez?
--- NOTE | 2022-03-13 14:30 | PHA.DC.MR ---
Pharmacy Service has performed discharge medication reconciliation for this patient. The patient's discharge medication list was reviewed for discrepancies and discrepancies were resolved. Home Medications doxazosin 2 mg tablet 2 mg PO BID prostate #180 tabs 10/05/20 blood sugar diagnostic (Accu-Chek Guide test strips) #100 ea 12/18/21 pen needle, diabetic 32 gauge x 5/32 (BD Ultra-Fine Sammie Pen Needle) #150 ea 12/18/21 sodium chloride 0.9 % (flush) (BD PosiFlush Normal Saline 0.9 % injection syringe) 10 - 40 ml IV UD PRN Saline Flush #0 mL 03/08/22 acetaminophen 325 mg tablet (Tylenol) 650 mg PO Q6H PRN Pain 03/11/22 arginine 7 gram-glutamine 7 gram-calcium HMB 1.5 gram oral powder pack (Silviano) 1 ea PO BID SUPPLEMENT 03/11/22 calcium carbonate 600 mg-vitamin D3 5 mcg (200 unit) tablet 1 tab PO DAILY SUPPLEMENT 03/11/22 daptomycin 500 mg intravenous solution 550 mg IV Q48 INFECTION 03/11/22 hydralazine 50 mg tablet 50 mg PO TID BLOOD PRESSURE 03/11/22 insulin glargine-yfgn 100 unit/mL (3 mL) subcutaneous pen 20 unit subcut BID DIABETES 03/11/22 insulin lispro 100 unit/mL subcutaneous pen See Protocol subcut UD 03/11/22 insulin lispro 100 unit/mL subcutaneous pen (Humalog KwikPen (U-100) Insulin) See Protocol subcut ACHS DIABETES 03/11/22 melatonin 10 mg sublingual tablet 10 mg PO QHS SLEEP 03/11/22 metoprolol succinate 25 mg tablet,extended release 24 hr 12.5 mg PO BID BLOOD PRESSURE 03/11/22 multivitamin with minerals 1 tab PO DAILY SUPPLEMENT 03/11/22 omega-3 fatty acids 1,000 mg capsule 1,000 mg PO BID SUPPLEMENT 03/11/22 pyridoxine (vitamin B6) 50 mg tablet (Vitamin B-6) 50 mg PO DAILY SUPPLEMENT 03/11/22 quetiapine 25 mg tablet 25 mg PO QHS SLEEP 03/11/22
== END 2022-03-13 16:45 | disposition skilled nursing facility (03) ==
LOC: ED 19:35 → MS3 20:36
PROVIDERS: Admitting Provider Family Medicine; Emergency Provider Student in an Organized Health Care Education/Training Program; PCP Family Medicine; Visit Provider Internal Medicine
DX: E11.51 Type 2 diabetes mellitus with diabetic peripheral angiopathy without gangrene (principal); E11.42 Type 2 diabetes mellitus with diabetic polyneuropathy; N18.4 Chronic kidney disease, stage 4 (severe); Z79.4 Long term (current) use of insulin; I25.10 Atherosclerotic heart disease of native coronary artery without angina pectoris; I12.9 Hypertensive chronic kidney disease with stage 1 through stage 4 chronic kidney disease, or unspecified chronic kidney disease; R04.2 Hemoptysis; E78.5 Hyperlipidemia, unspecified; Z79.899 Other long term (current) drug therapy; Z79.82 Long term (current) use of aspirin; E66.9 Obesity, unspecified; Z68.30 Body mass index [BMI] 30.0-30.9, adult; Z95.1 Presence of aortocoronary bypass graft; D63.8 Anemia in other chronic diseases classified elsewhere; Z86.16 Personal history of COVID-19
CPT/HCPCS: 96366; 36415; 36592; 71045; 80048; 80053; 82728; 82962; 83615; 83735; 83880; 84100; 84145; 84484; 85025; 86140; 87070; 87205; 87633; 93005; 93970; 96361; 96365; 96375; 97162; 97166; 99221; 99252; 99285; J0878; J7030; J7050; A4216; G0378; G0463; J2405; J3490